=== PATIENT | male | born 1935 | race Caucasian/White ===

== ENCOUNTER → 2016-12-24 | Outpatient (CLI) | payer BC ==
[~2016-12-24] MED LIST: ACET-24 PO; ASPEC325 PO; CIPR-255 PO; CYAN10004 PO; DUTA0.5C PO; FLUT0.15 NAE; HYDR-3419 PO; HYDR25TA4 PO; LEVO1TAB35 PO; MULT-190 PO; TERA5CAP PO; ULT50X PO
--- NOTE | 2016-12-24 14:53 | DIAGNOSTIC IMAGING REPORT ---
CHEST 2 VIEWS ROUTINE CLINICAL HISTORY: ACUTE UPPER RESPIRATORY INFECTION COMPARISON STUDY: 06/19/2016 FINDINGS: The heart is enlarged. There is no focal pulmonary consolidation. There are no pleural effusions. There is no overt failure. There is minor chronic interstitial thickening.[ IMPRESSION: Mild cardiomegaly. No evidence of acute parenchymal consolidation. Electronically signed by: Shahriar Dumont M.D. 12/24/2016 2:52 PM Dictated Date/Time: 12/24/2016 2:51 PM
== END | disposition home or self-care (01) ==
LOC: C.RAD1850 14:39
PROVIDERS: ATTEND Internal Medicine Cardiovascular Disease
DX: J06.9 Acute upper respiratory infection, unspecified (principal)

== ENCOUNTER → 2016-12-30 | Outpatient (CLI) | payer BC | END | disposition home or self-care (01) | LOC: C.LAB 14:58 | PROVIDERS: ATTEND Nurse Practitioner Adult Health | DX: R31.29 Other microscopic hematuria (principal); R82.71 Bacteriuria ==

== ENCOUNTER → 2017-01-05 | Outpatient (CLI) | payer BC ==
[2017-01-05 10:34] LABS: BLOOD UREA NITROGEN 19 mg/dl (7-18); BUN/CREATININE RATIO 19.1 (10-20)
== END | disposition home or self-care (01) ==
LOC: C.LAB1850 08:36
PROVIDERS: ATTEND Urology
DX: R31.9 Hematuria, unspecified (principal)

== ENCOUNTER 2017-01-09 15:53 | Inpatient (IN) | payer BC, OTHER ==
[~2017-01-09] VITALS: Ht 177.8 cm; Wt 87.0 kg
[~2017-01-09 15:53] MED LIST changes: -ACET-24 PO; -ASPEC325 PO; -FLUT0.15 NAE; -HYDR25TA4 PO; -LEVO1TAB35 PO; -ULT50X PO
[2017-01-09] MEDS ORDERED: ALBUT/IPRATROP 3MG/0.5MG NEB 3 ML VIAL INH STA (16:15)
[2017-01-09] MEDS ORDERED: ONDANSETRON INJ 2 MG/ML 2 ML VIAL IV STA (16:15)
--- NOTE | 2017-01-09 16:19 | EMERGENCY ROOM VISIT NOTE ---
History Report prepared by Sonya: Amador Matias Under the Supervision of: Dr. Angel Yusuf D.O. First contact with patient: 16:04 Chief Complaint: FEVER Stated Complaint: REACTION TO ANTIBIOTIC History of Present Illness The patient is a 81 year old male who presents to the Emergency Room with complaints of persistent fevers that started 3 days ago. Last recorded temperature, in the outpatient office, was 38.8. Associated symptoms include shortness of breath, a nonproductive cough, and hematuria. The patient believes he is experiencing a negative reaction to Bactrim, which he was prescribed 3 days ago. He denies vomiting, chest pain, back pain, or swelling of the legs. Source of History: patient Onset: 3 days ago Position: other (Global ) Timing: other (Persistent ) Modifying Factors (Relieving): other (None) Associated Symptoms: + SOB, + cough, + urinary symptoms (Hematuria ), No chest pain, No vomiting Review of Systems See HPI for pertinent positives & negatives. A total of 10 systems reviewed and were otherwise negative. Past Medical & Surgical Medical Problems: (1) Sepsis (2) UTI (urinary tract infection) Family History Unknown family medical history Social History Smoking Status: Former Smoker Drug Use: none Marital Status: Housing Status: lives with significant other Current/Historical Medications Scheduled Cyanocobalamin (Vitamin B-12 1000 Mcg), 1,000 MCG PO DAILY Hydrochlorothiazide (Hctz), 25 MG PO QAM Ocuvite Preservision (Ocuvite Preservision), 1 TAB PO DAILY Terazosin (Hytrin), 10 MG PO QAM Allergies Coded Allergies: Merbromin (Verified Allergy, Unknown, ALLERGIC TO MERCUROCHROME, RASH, ) Physical Exam Vital Signs Date Time Temp Pulse Resp B/P Pulse Ox O2 Delivery O2 Flow Rate FiO2 01/09/17 18:57 89 20 119/80 93 4.0 01/09/17 18:30 91 20 120/67 95 Nasal Cannula 4.0 01/09/17 17:16 62 20 113/57 94 Nasal Cannula 4.0 01/09/17 16:44 Room Air 01/09/17 16:18 100 01/09/17 15:57 38.0 112 22 130/69 89 Room Air Physical Exam GENERAL: Patient is awake, alert, non anxious appearing, comfortable. EYES: The conjunctivae are clear. The pupils are round and reactive. EARS, NOSE, MOUTH AND THROAT: The nose is without any evidence of any deformity. Mucous membranes are moist tongue is midline NECK: The neck is nontender and supple. RESPIRATORY: Lung sounds diminished throughout. Scattered expiratory wheezing in all lung garcia, mild tachypnea noted. CARDIOVASCULAR: Irregular rhythm noted to auscultation. GASTROINTESTINAL: The abdomen is soft. Bowel sounds are present in all quadrants. Abdomen is nontender MUSCULOSKELETAL/EXTREMITIES: There is no evidence of gross deformity full range of motion is noted in the hips and shoulders SKIN: Pedal edema noted bilaterally. There is no obvious evidence of any rash. There are no petechiae, pallor or cyanosis noted. NEUROLOGIC: Patient is awake alert and oriented x3. Medical Decision & Procedures ER Provider Diagnostic Interpretation: X-ray results as stated below per interpretation by me and the radiologist. CHEST ONE VIEW PORTABLE CLINICAL HISTORY: Sepsis. COMPARISON STUDY: Chest radiograph December 24, 2016. FINDINGS: Lung volumes are normal. There is no pneumothorax or pleural effusion. There is no lobar consolidation. There is mild left basilar opacity. Cardiomegaly is unchanged. There is no evidence of pulmonary edema. IMPRESSION: 1. Minimal left basilar opacity. Atelectasis is favored. An infectious process could appear similar although is considered less likely. 2. Stable cardiomegaly without evidence of pulmonary edema. Electronically signed by: Alan Chung M.D. 01/09/2017 4:33 PM Dictated Date/Time: 01/09/2017 4:32 PM Laboratory Results 01/09/17 16:30 Red Blood Count 4.27, Mean Corpuscular Volume 92.3, Mean Corpuscular Hemoglobin 32.1, Mean Corpuscular Hemoglobin Concent 34.8, Mean Platelet Volume 10.7, Neutrophils (%) (Auto) 90.8, Lymphocytes (%) (Auto) 3.2, Monocytes (%) (Auto) 4.5, Eosinophils (%) (Auto) 1.1, Basophils (%) (Auto) 0.2, Neutrophils # (Auto) 4.88, Lymphocytes # (Auto) 0.17, Monocytes # (Auto) 0.24, Eosinophils # (Auto) 0.06, Basophils # (Auto) 0.01 01/09/17 16:30 Test 01/09/17 00:00 01/09/17 16:30 01/09/17 16:35 01/09/17 17:30 Urine Color DK YELLOW Urine Appearance CLOUDY (CLEAR) Urine pH 5.5 (4.5-7.5) Urine Specific [place] 1.023 (1.000-1.030) Urine Protein 1+ (NEG) Urine Glucose (UA) NEG (NEG) Urine Ketones NEG (NEG) Urine Occult Blood 2+ (NEG) Urine Nitrite NEG (NEG) Urine Bilirubin NEG (NEG) Urine Urobilinogen POS (NEG) Urine Leukocyte Esterase MODERATE (NEG) Urine WBC (Auto) 5-10 /hpf (0-5) Urine RBC (Auto) 5-10 /hpf (0-4) Urine Hyaline Casts (Auto) 1-5 /lpf (0-5) Urine Epithelial Cells (Auto) >30 /lpf (0-5) Urine Bacteria (Auto) NEG (NEG) Urine Pathogenic Casts /lpf (0) White Blood Count 5.37 K/uL (4.8-10.8) Red Blood Count 4.27 M/uL (4.7-6.1) Hemoglobin 13.7 g/dL (14.0-18.0) Hematocrit 39.4 % (42-52) Mean Corpuscular Volume 92.3 fL (80-100) Mean Corpuscular Hemoglobin 32.1 pg (25-34) Mean Corpuscular Hemoglobin Concent 34.8 g/dl (32-36) Platelet Count 105 K/uL (130-400) Mean Platelet Volume 10.7 fL (7.4-10.4) Neutrophils (%) (Auto) 90.8 % Lymphocytes (%) (Auto) 3.2 % Monocytes (%) (Auto) 4.5 % Eosinophils (%) (Auto) 1.1 % Basophils (%) (Auto) 0.2 % Neutrophils # (Auto) 4.88 K/uL (1.4-6.5) Lymphocytes # (Auto) 0.17 K/uL (1.2-3.4) Monocytes # (Auto) 0.24 K/uL (0.11-0.59) Eosinophils # (Auto) 0.06 K/uL (0-0.5) Basophils # (Auto) 0.01 K/uL (0-0.2) RDW Standard Deviation 46.1 fL (36.4-46.3) RDW Coefficient of Variation 13.6 % (11.5-14.5) Immature Granulocyte % (Auto) 0.2 % Immature Granulocyte # (Auto) 0.01 K/uL (0.00-0.02) Erythrocyte Sedimentation Rate 44 mm/hr (0-14) Prothrombin Time 12.7 SECONDS (9.0-12.0) Prothromb Time International Ratio 1.2 (0.9-1.1) Activated Partial Thromboplast Time 46.2 SECONDS (21.0-31.0) Partial Thromboplastin Ratio 1.8 Anion Gap 7.0 mmol/L (3-11) Est Creatinine Clear Calc Drug Dose 48.2 ml/min Estimated GFR () 64.4 Estimated GFR (Non- 55.6 BUN/Creatinine Ratio 23.7 (10-20) Calcium Level 8.8 mg/dl (8.5-10.1) Phosphorus Level 1.6 mg/dl (2.5-4.9) Magnesium Level 2.4 mg/dl (1.8-2.4) Total Bilirubin 1.7 mg/dl (0.2-1) Aspartate Amino Transf (AST/SGOT) 54 U/L (15-37) Alanine Aminotransferase (ALT/SGPT) 48 U/L (12-78) Alkaline Phosphatase 164 U/L (45-117) Total Creatine Kinase 118 U/L (39-308) Creatine Kinase MB 1.7 ng/ml (0.5-3.6) Creatine Kinase MB Ratio 1.4 (0-3.0) C-Reactive Protein 18.30 mg/dl (0-0.29) Pro-B-Type Natriuretic Peptide 4590 pg/ml (0-1800) Total Protein 7.3 gm/dl (6.4-8.2) Albumin 3.4 gm/dl (3.4-5.0) Globulin 3.9 gm/dl (2.5-4.0) Albumin/Globulin Ratio 0.9 (0.9-2) Lipase 121 U/L (73-393) Venous Blood pH 7.46 (7.36-7.41) Venous Blood Partial Pressure CO2 45 mmHg (38.0-50.0) Venous Blood Partial Pressure O2 40 mmHg Venous Blood HCO3 31 mmol/L Venous Blood Oxygen Saturation 75.4 % Venous Blood Base Excess 6.6 mmol/L Bedside Lactic Acid Venous 0.98 mmol/L (0.90-1.70) Laboratory results per my review. Medications Administered Medications (Trade) Dose Ordered Sig/Shaila Route Start Time Stop Time Status Last Admin Dose Admin Ondansetron HCl (Zofran Inj) 4 mg NOW STAT IV 01/09/17 16:15 01/09/17 16:16 DC 01/09/17 17:12 4 MG Albuterol/ Ipratropium (Duoneb) 3 ml NOW STAT INH 01/09/17 16:15 01/09/17 16:16 DC 01/09/17 17:12 3 ML Magnesium Sulfate (Magnesium Sulfate) 1 gm NOW STAT IV 01/09/17 17:57 01/09/17 17:58 DC 01/09/17 17:57 1 GM Levofloxacin (Levaquin / D5W) 750 mg NOW STAT IV 01/09/17 17:57 01/09/17 17:58 DC 01/09/17 18:57 750 MG ECG Indication: SOB/dyspnea Rate (beats per minute): 96 Rhythm: atrial fibrillation Findings: RBBB (RBBB pattern noted), no ectopy Comparison ECG Date: Change: RBBB new. ED Course 1608: The patient was evaluated in room C11A. A complete history and physical examination were performed. 1615: Ordered DuoNeb 3 ml INH, Zofran Injection 4 mg IV. 1640: Upon reevaluation, the patient is 100% on bi-pap. 1757: Ordered Levofloxacin 750 mg IV, Magnesium Sulfate 1 gm IV. 1924: I discussed the patient's case with Dr. Feliz ([facility]). The patient will be evaluated for further management. Medical Decision Differential diagnosis: Etiologies such as viral syndrome, otitis, pharyngitis, pneumonia, influenza, meningitis, urinary tract infection, sepsis, bacteremia, as well as others were entertained. Nursing notes reviewed. The patient is an 81-year-old male who presented to emergency department for an evaluation of cough and fever. The patient was also found have hypoxia. He has a history of COPD. He was treated with IV fluids and IV antibiotics in emergency department. On subsequent reevaluation he was somewhat improved. He is currently also being treated for urinary tract infection. I discussed the patient's laboratory and radiographic studies with him. Given his comorbidities as well as his vital signs I also discussed his case with the on-call [facility] hospitalist group. They've agreed to evaluate the patient in the emergency department for further management and disposition. Consults Time Called: [phone] Consulting Physician: Dr. Feliz ([facility]) Returned Call: [phone] I discussed the patient's case with Dr. Feliz ([facility]). The patient will be evaluated for further management. Impression Primary Impression: Pneumonia Additional Impressions: Hypoxia Fever UTI (urinary tract infection) Elevated troponin New onset right bundle branch block (RBBB) Scribe Attestation The scribe's documentation has been prepared under my direction and personally reviewed by me in its entirety. I confirm that the note above accurately reflects all work, treatment, procedures, and medical decision making performed by me. Departure Information Dispostion Being Evaluated By Hospitalist Referrals RV. De La Cruz MD (PCP) Patient Instructions My [facility] Problem Qualifiers Primary Impression: Pneumonia Pneumonia type: due to unspecified organism Laterality: unspecified laterality Lung location: unspecified part of lung Qualified Codes: J18.9 - Pneumonia, unspecified organism Additional Impressions: Fever Fever type: unspecified Qualified Codes: R50.9 - Fever, unspecified UTI (urinary tract infection) Urinary tract infection type: site unspecified Hematuria presence: with hematuria Qualified Codes: N39.0 - Urinary tract infection, site not specified ; R31.9 - Hematuria, unspecified
--- NOTE | 2017-01-09 16:35 | DIAGNOSTIC IMAGING REPORT ---
CHEST ONE VIEW PORTABLE CLINICAL HISTORY: Sepsis. COMPARISON STUDY: Chest radiograph December 24, 2016. FINDINGS: Lung volumes are normal. There is no pneumothorax or pleural effusion. There is no lobar consolidation. There is mild left basilar opacity. Cardiomegaly is unchanged. There is no evidence of pulmonary edema. IMPRESSION: 1. Minimal left basilar opacity. Atelectasis is favored. An infectious process could appear similar although is considered less likely. 2. Stable cardiomegaly without evidence of pulmonary edema. Electronically signed by: Alan Chung M.D. 01/09/2017 4:33 PM Dictated Date/Time: 01/09/2017 4:32 PM
[2017-01-09] MEDS ORDERED: HYDR25TA4 PO (16:39)
[2017-01-09 16:53] LABS: BASO % 0.2 %; BASO ABS # 0.01 K/uL (0-0.2); COMPLETE YES; EOS % 1.1 %; HEMATOCRIT 39.4 % (42-52); IG% 0.2 %; LYMPH % 3.2 %; LYMPH ABS # 0.17 K/uL (1.2-3.4); MEAN CELL VOLUME 92.3 fL (80-100); MEAN CORPUSCULAR HEMOGLOBIN 32.1 pg (25-34); MEAN CORPUSCULAR HGB CONC 34.8 g/dl (32-36); MEAN PLATELET VOLUME 10.7 fL (7.4-10.4); MONO % 4.5 %; NEUT % 90.8 %; PLATELET COUNT 105 K/uL (130-400); RED BLOOD COUNT 4.27 M/uL (4.7-6.1); WHITE BLOOD COUNT 5.37 K/uL (4.8-10.8)
[2017-01-09 16:56] LABS: VEN BLD GAS O2 SATURATION 75.4 %; VEN BLOOD GAS BASE EXCESS 6.6 mmol/L
[2017-01-09 17:07] LABS: INR 1.2 (0.9-1.1); PARTIAL THROMBOPLASTIN RATIO 1.8; PROTHROMBIN TIME (PATIENT) 12.7 SECONDS (9.0-12.0)
[2017-01-09 17:17] LABS: BUN/CREATININE RATIO 23.7 (10-20); CALCIUM 8.8 mg/dl (8.5-10.1); CREATININE 1.2 mg/dl (0.60-1.40); MAGNESIUM 2.4 mg/dl (1.8-2.4); POTASSIUM 3.2 mmol/L (3.5-5.1)
[2017-01-09 17:29] LABS: ALB/GLOB RATIO 0.9 (0.9-2); C-REACTIVE PROTEIN 18.3 mg/dl (0-0.29); CKMB/CK RATIO 1.4 (0-3.0); PHOSPHORUS 1.6 mg/dl (2.5-4.9)
[2017-01-09 17:44] LABS: URINE APPEARANCE CLOUDY (CLEAR); URINE COLOR DK YELLOW; URINE EPITHELIAL CELL AUTO >30 /lpf (0-5); URINE NITRITE NEG (NEG); URINE PH 5.5 (4.5-7.5); URINE SPECIFIC GRAVITY 1.023 (1.000-1.030); UROBILINOGEN POS (NEG)
[2017-01-09] MEDS ORDERED: LEVAQUIN 750MG / 150ML D5W IV STA (17:57)
[2017-01-09] MEDS ORDERED: MAGNESIUM SULFATE 1GM / D5W 1 GM BAG IV STA (17:57)
[2017-01-09 18:03] LABS: MANUAL MICROSCOPIC REQUIRED? NO; REVIEW REQ? YES; URINE BILIRUBIN NEG (NEG)
[2017-01-09 18:04] LABS: ZZUR CULT IF INDIC CLEAN CATCH NO
[2017-01-09] MEDS ORDERED: ALUMINUM/MAGNESIUM/SIMETH (MAALOX MAX) 30 ML UDC PO PRN (19:30)
[2017-01-09] MEDS ORDERED: ONDANSETRON INJ 2 MG/ML 2 ML VIAL IV PRN (19:30)
[2017-01-09] MEDS ORDERED: MAGNESIUM HYDROXIDE SUSP 30 ML UDC PO PRN (19:30)
[2017-01-09] MEDS ORDERED: POLYETHYLENE (MIRALAX) 17 GM PACK PO PRN (19:30)
[2017-01-09] MEDS ORDERED: ACETAMINOPHEN 325 MG TAB PO PRN (19:30)
[2017-01-09] MEDS ORDERED: POTASSIUM CHLORIDE PWD 20 MEQ PACK PO ONE (20:15)
--- NOTE | 2017-01-09 20:24 | History and Physical ---
History & Physical Date & Time of Service: Jan 09, 2017 at 19:55 Chief Complaint: Reaction To Antibiotic Primary Care Physician: RV. De La Cruz MD History of Present Illness Source: patient 81 y/o M Hx AF, HTN, PUD. Pt was diagnosed with a UTI and placed on Bactrim 3 days prior. He developed rigors a few hours after his first dose of Bactrim and has been having fevers and intermittent rigors since. He opined that this was due to a reaction to the Bactrim and presented to the hospital for further evaluation. A fever was confirmed on arrival, however there was no other evidence of an acute reaction to Bactrim. Initial labs revealed an elevated troponin and an elevated CRP and BNP and a low K. He had not c/o CP, SOB, N/V and does not c/o dysuria. His clinical presentation is not consistent with CHF. Past Medical/Surgical History 1) COPD - mild 2) Chronic AF - history of ablation - does not take Coumadin as he suffered a retinal hemorrhage. 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 6) BPH Surgical R TKR, B/L meniscal tears Family History Parents at early age - does not know cause Social History Smoking Status: Former Smoker Alcohol Use: none Marital Status: Housing status: lives with family Immunizations History of Influenza Vaccine: Yes History of Tetanus Vaccine?: Unknown History of Pneumococcal: Yes Pneumococcal Date: Dec 24, 2010 History of Hepatitis B Vaccine: No Multi-Drug Resistant Organisms History of MDRO: No Allergies Coded Allergies: Merbromin (Verified Allergy, Unknown, ALLERGIC TO MERCUROCHROME, RASH, ) Home Medications Scheduled Cyanocobalamin (Vitamin B-12 1000 Mcg), 1,000 MCG PO DAILY Hydrochlorothiazide (Hctz), 25 MG PO QAM Ocuvite Preservision (Ocuvite Preservision), 1 TAB PO DAILY Terazosin (Hytrin), 10 MG PO QAM Review of Systems Constitutional: + chills, + fever, + sweats, + weakness, No weight loss Eyes: + problem reported (Chronic vision loss L eye), No eye pain, No worsening of vision ENT: No hearing loss, No nasal symptoms, No unusual epistaxis Respiratory: No cough, No sputum, No wheezing Cardiovascular: No PND, No chest pain, No orthopnea Abdomen: No nausea, No pain, No vomiting Musculoskeletal: No joint pain, No muscle pain Genitourinary - Male: No dysuria, No hematuria, No urinary frequency, No urinary urgency Neurologic: + weakness, No memory loss, No paralysis Psychiatric: No depression symptoms Endocrine: + fatigue Hematologic / Lymphatic: No abnormal bleeding/bruising Integumentary: No rash Allergic / Immunologic: No environmental allergies Physical Exam Vital Signs Date Time Temp Pulse Resp B/P Pulse Ox O2 Delivery O2 Flow Rate FiO2 01/09/17 18:57 89 20 119/80 93 4.0 01/09/17 18:30 91 20 120/67 95 Nasal Cannula 4.0 01/09/17 17:16 62 20 113/57 94 Nasal Cannula 4.0 01/09/17 16:44 Room Air 01/09/17 16:18 100 01/09/17 15:57 38.0 112 22 130/69 89 Room Air General Appearance: WD/WN, no apparent distress Head: normocephalic, atraumatic Eyes: normal inspection, PERRL, EOMI ENT: normal ENT inspection Neck: supple, no JVD Respiratory/Chest: chest non-tender, lungs clear, normal breath sounds, no respiratory distress, no accessory muscle use Cardiovascular: no edema, no JVD, no murmur, normal peripheral pulses, + systolic murmur, + irregularly irregular Abdomen/GI: normal bowel sounds, non tender, soft Back: normal inspection Extremities/Musculoskelatal: normal inspection, no calf tenderness, normal capillary refill, + pedal edema, + pertinent finding (Chronic stasis changes) Neurologic/Psych: 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 II-XII nml as tested, no motor/sensory deficits, alert, normal mood/affect, oriented x 3 Skin: no rash, + pertinent finding (Chronic stasis changes) Diagnostics Laboratory Results Results Past 24 Hours Test 01/09/17 00:00 01/09/17 16:30 01/09/17 16:35 01/09/17 17:30 Range/Units Urine Color DK YELLOW Urine Appearance CLOUDY CLEAR Urine pH 5.5 4.5-7.5 Urine Specific [place] 1.023 1.000-1.030 Urine Protein 1+ NEG Urine Glucose (UA) NEG NEG Urine Ketones NEG NEG Urine Occult Blood 2+ NEG Urine Nitrite NEG NEG Urine Bilirubin NEG NEG Urine Urobilinogen POS NEG Urine Leukocyte Esterase MODERATE NEG Urine WBC (Auto) 5-10 0-5 /hpf Urine RBC (Auto) 5-10 0-4 /hpf Urine Hyaline Casts (Auto) 1-5 0-5 /lpf Urine Epithelial Cells (Auto) >30 0-5 /lpf Urine Bacteria (Auto) NEG NEG Urine Pathogenic Casts 0 /lpf White Blood Count 5.37 4.8-10.8 K/uL Red Blood Count 4.27 4.7-6.1 M/uL Hemoglobin 13.7 14.0-18.0 g/dL Hematocrit 39.4 42-52 % Mean Corpuscular Volume 92.3 80-100 fL Mean Corpuscular Hemoglobin 32.1 25-34 pg Mean Corpuscular Hemoglobin Concent 34.8 32-36 g/dl Platelet Count 105 130-400 K/uL Mean Platelet Volume 10.7 7.4-10.4 fL Neutrophils (%) (Auto) 90.8 % Lymphocytes (%) (Auto) 3.2 % Monocytes (%) (Auto) 4.5 % Eosinophils (%) (Auto) 1.1 % Basophils (%) (Auto) 0.2 % Neutrophils # (Auto) 4.88 1.4-6.5 K/uL Lymphocytes # (Auto) 0.17 1.2-3.4 K/uL Monocytes # (Auto) 0.24 0.11-0.59 K/uL Eosinophils # (Auto) 0.06 0-0.5 K/uL Basophils # (Auto) 0.01 0-0.2 K/uL RDW Standard Deviation 46.1 36.4-46.3 fL RDW Coefficient of Variation 13.6 11.5-14.5 % Immature Granulocyte % (Auto) 0.2 % Immature Granulocyte # (Auto) 0.01 0.00-0.02 K/uL Erythrocyte Sedimentation Rate 44 0-14 mm/hr Prothrombin Time 12.7 9.0-12.0 SECONDS Prothromb Time International Ratio 1.2 0.9-1.1 Activated Partial Thromboplast Time 46.2 21.0-31.0 SECONDS Partial Thromboplastin Ratio 1.8 Sodium Level 135 136-145 mmol/L Potassium Level 3.2 3.5-5.1 mmol/L Chloride Level 98 98-107 mmol/L Carbon Dioxide Level 30 21-32 mmol/L Anion Gap 7.0 3-11 mmol/L Blood Urea Nitrogen 28 7-18 mg/dl Creatinine 1.20 0.60-1.40 mg/dl Est Creatinine Clear Calc Drug Dose 48.2 ml/min Estimated GFR () 64.4 Estimated GFR (Non- 55.6 BUN/Creatinine Ratio 23.7 10-20 Random Glucose 102 70-99 mg/dl Calcium Level 8.8 8.5-10.1 mg/dl Phosphorus Level 1.6 2.5-4.9 mg/dl Magnesium Level 2.4 1.8-2.4 mg/dl Total Bilirubin 1.7 0.2-1 mg/dl Aspartate Amino Transf (AST/SGOT) 54 15-37 U/L Alanine Aminotransferase (ALT/SGPT) 48 12-78 U/L Alkaline Phosphatase 164 45-117 U/L Total Creatine Kinase 118 39-308 U/L Creatine Kinase MB 1.7 0.5-3.6 ng/ml Creatine Kinase MB Ratio 1.4 0-3.0 Troponin I 0.068 0-0.045 ng/ml C-Reactive Protein 18.30 0-0.29 mg/dl Pro-B-Type Natriuretic Peptide 4590 0-1800 pg/ml Total Protein 7.3 6.4-8.2 gm/dl Albumin 3.4 3.4-5.0 gm/dl Globulin 3.9 2.5-4.0 gm/dl Albumin/Globulin Ratio 0.9 0.9-2 Lipase 121 73-393 U/L Venous Blood pH 7.46 7.36-7.41 Venous Blood Partial Pressure CO2 45 38.0-50.0 mmHg Venous Blood Partial Pressure O2 40 mmHg Venous Blood HCO3 31 mmol/L Venous Blood Oxygen Saturation 75.4 % Venous Blood Base Excess 6.6 mmol/L Bedside Lactic Acid Venous 0.98 0.90-1.70 mmol/L Microbiology Results 01/09/17 Blood Culture, Received Pending 01/09/17 Blood Culture, Received Pending Diagnostic Radiology CXR 1. Minimal left basilar opacity. Atelectasis is favored. An infectious process could appear similar although is considered less likely. 2. Stable cardiomegaly without evidence of pulmonary edema. EKG AF, RBBB - inf Q wvs - no acute ischemic changes Impression Assessment and Plan 81 y/o M Hx AF, HTN, PUD. Pt was diagnosed with a UTI and placed on Bactrim 3 days prior. He developed rigors a few hours after his first dose of Bactrim and has been having fevers and intermittent rigors since. He opined that this was due to a reaction to the Bactrim and presented to the hospital for further evaluation. A fever was confirmed on arrival, however there was no other evidence of an acute reaction to Bactrim. Initial labs revealed an elevated troponin and an elevated CRP and BNP and a low K. He had not c/o CP, SOB, N/V and does not c/o dysuria. His clinical presentation is not consistent with CHF. 1) Fevers, rigors - likely a UTI - UA is + although not strongly - may be partially treated due to Bactrim. Differential would include PNM as CXR is also equivocal - he does not have SOB or a cough to support a PNM. Pt placed on Levaquin pending cultures which would cover adequately for both. 2) Elevated troponin, CRP, BMP - clinical presentation does not support cardiac etiology. We will monitor on telemetry, trend troponin and provide ASA and low dose Heparin. An echo is ordered to evaluate EF and wall motion. 3) HTN - cont Hytrin - HCTZ held due to clinical dehydration. 4) AF - placed on ASA - does not take anticoagulation due to retinal hemorrhage as mentioned. 5) HypoK - replaced Full code - Heparin prophylaxis Total time for this admit including review of labs, med, EKG, records - discussion with ER MD and pt - 38 min Level of Care Telemetry Resuscitation Status FULL RESUSCITATION VTE Prophylaxis VTE Risk Assessment Done? Y/N: Yes Risk Level: Moderate Given or contraindicated: Unfractionated heparin SQ
[2017-01-09] MEDS ORDERED: MAGNESIUM SULFATE 1GM / D5W 1 GM BAG ONE (20:37)
[2017-01-09 21:30] VITALS: BP 128/64; PULSE 87; TEMP 36.9; O2SAT 92
[2017-01-09] MEDS: HEPARIN SOD 5000 UNIT/0.5 ML CARP SQ SCH ×2 (22:00→22:32)
[2017-01-09] MEDS ORDERED: LEVOFLOXACIN CONSULT ACTIVE PRN (22:00)
[2017-01-09] MEDS ORDERED: NSS + 20MEQ KCL 1000ML 1,000 ML IV SCH (22:00)
[2017-01-09 23:03] VITALS: BP 128/64; PULSE 87; TEMP 36.9; O2SAT 92; Ht 177.8 cm; Wt 87.0 kg
[2017-01-10 00:10] VITALS: BP 153/81; PULSE 96; TEMP 36.9; O2SAT 96
[2017-01-10 05:25] LABS: HEMATOCRIT 36.4 % (42-52); MEAN CELL VOLUME 91.9 fL (80-100); MEAN CORPUSCULAR HEMOGLOBIN 31.6 pg (25-34); MEAN CORPUSCULAR HGB CONC 34.3 g/dl (32-36); RED BLOOD COUNT 3.96 M/uL (4.7-6.1); WHITE BLOOD COUNT 3.44 K/uL (4.8-10.8)
[2017-01-10 05:41] LABS: BUN/CREATININE RATIO 24.6 (10-20); CALCIUM 8.5 mg/dl (8.5-10.1); CREATININE 1.2 mg/dl (0.60-1.40); MAGNESIUM 2.4 mg/dl (1.8-2.4); POTASSIUM 3.2 mmol/L (3.5-5.1)
[2017-01-10] MEDS: HEPARIN SOD 5000 UNIT/0.5 ML CARP SQ SCH ×3 (05:49→21:35)
[2017-01-10 05:50] LABS: MEAN PLATELET VOLUME 10.1 fL (7.4-10.4); PLATELET COUNT 82 K/uL (130-400); PLT ESTIMATE DECREASED
[2017-01-10 07:53] VITALS: BP 105/65; PULSE 88; TEMP 37.1; O2SAT 90
[2017-01-10] MEDS: CYANOCOBALAMIN 500 MCG TAB (VIT B-12) PO SCH (08:03)
[2017-01-10] MEDS: CEROVITE ADV FORMULA TAB PO SCH (08:03)
--- NOTE | 2017-01-10 13:00 | Hospitalist Progress Note ---
Hospitalist Progress Note Date of Service Jan 10, 2017. Subjective Pt evaluation today including: conversation w/ patient, conversation w/ family Patient had no acute issues overnight Denies any fevers Patient denies any chest pain or SOB Constitutional: No fever Eyes: No worsening of vision ENT: No hearing loss Respiratory: No cough, No shortness of breath, No sputum Cardiovascular: No chest pain Abdomen: No nausea, No pain, No vomiting Musculoskeletal: No joint pain Male : No dysuria Neurologic: No memory loss Psychiatric: No depression symptoms Endo: No fatigue Skin: No itch, No rash Medications Current Inpatient Medications Medications (Trade) Dose Ordered Sig/Shaila Route Start Time Stop Time Status Last Admin Dose Admin Cyanocobalamin (Vitamin B-12 Tab) 1,000 mcg DAILY PO 01/10/17 08:00 02/09/17 08:59 01/10/17 08:03 1,000 MCG Multivitamins/ Minerals (Multivitamin W/ Minerals Tab) 1 tab DAILY PO 01/10/17 08:00 02/09/17 08:59 01/10/17 08:03 1 TAB Terazosin HCl 10 mg 10 mg QAM PO 01/10/17 08:00 02/09/17 08:59 01/10/17 08:04 10 MG Levofloxacin/Prmx (Levaquin / D5W/ Premixed D5W) 150 ml @ 100 mls/hr Q2D@1800 IV 01/11/17 18:00 01/19/17 17:59 Heparin Sodium (Porcine) (Heparin Sq 5000 Unit/0.5ml) 5,000 unit Q8 SQ 01/09/17 22:00 02/08/17 21:59 Acetaminophen (Tylenol Tab) 650 mg Q4H PRN PO 01/09/17 19:30 02/08/17 19:29 Al Hydrox/Mg Hydrox/Simethicone (Maalox Max Susp) 15 ml Q4H PRN PO 01/09/17 19:30 02/08/17 19:29 Magnesium Hydroxide (Milk Of Magnesia Susp) 30 ml Q6H PRN PO 01/09/17 19:30 02/08/17 19:29 Polyethylene (Miralax Powder Packet) 17 gm DAILY PRN PO 01/09/17 19:30 02/08/17 19:29 Ondansetron HCl (Zofran Inj) 4 mg Q6H PRN IV 4/14/17 19:30 02/08/17 19:29 Levofloxacin (Consult) 1 ea UD PRN N/A 01/09/17 22:00 02/08/17 21:59 Objective Vital Signs Date Time Temp Pulse Resp B/P Pulse Ox O2 Delivery O2 Flow Rate FiO2 01/10/17 08:00 Room Air 01/10/17 07:53 37.1 88 20 105/65 90 Room Air 01/10/17 00:10 36.9 96 20 153/81 96 Room Air 01/10/17 00:01 Room Air 01/09/17 23:03 36.9 87 18 128/64 92 Room Air 01/09/17 21:30 36.9 87 18 128/64 92 Room Air 01/09/17 20:58 86 20 121/69 93 Room Air 01/09/17 20:10 92 20 114/78 95 Room Air 01/09/17 18:57 89 20 119/80 93 4.0 01/09/17 18:30 91 20 120/67 95 Nasal Cannula 4.0 01/09/17 17:16 62 20 113/57 94 Nasal Cannula 4.0 01/09/17 16:44 Room Air 01/09/17 16:18 100 01/09/17 15:57 38.0 112 22 130/69 89 Room Air Physical Exam General Appearance: WD/WN, no apparent distress Eyes: normal inspection ENT: normal ENT inspection Neck: supple Respiratory/Chest: chest non-tender, lungs clear Cardiovascular: regular rate, rhythm, no edema Abdomen: normal bowel sounds, non tender, soft Extremities: normal range of motion, non-tender 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, no motor/sensory deficits, alert, oriented x 3 Laboratory Results Last 24 Hours Test 01/09/17 16:30 01/09/17 16:35 01/09/17 17:30 01/09/17 23:07 White Blood Count 5.37 K/uL Red Blood Count 4.27 M/uL Hemoglobin 13.7 g/dL Hematocrit 39.4 % Mean Corpuscular Volume 92.3 fL Mean Corpuscular Hemoglobin 32.1 pg Mean Corpuscular Hemoglobin Concent 34.8 g/dl Platelet Count 105 K/uL Mean Platelet Volume 10.7 fL Neutrophils (%) (Auto) 90.8 % Lymphocytes (%) (Auto) 3.2 % Monocytes (%) (Auto) 4.5 % Eosinophils (%) (Auto) 1.1 % Basophils (%) (Auto) 0.2 % Neutrophils # (Auto) 4.88 K/uL Lymphocytes # (Auto) 0.17 K/uL Monocytes # (Auto) 0.24 K/uL Eosinophils # (Auto) 0.06 K/uL Basophils # (Auto) 0.01 K/uL RDW Standard Deviation 46.1 fL RDW Coefficient of Variation 13.6 % Immature Granulocyte % (Auto) 0.2 % Immature Granulocyte # (Auto) 0.01 K/uL Erythrocyte Sedimentation Rate 44 mm/hr Prothrombin Time 12.7 SECONDS Prothromb Time International Ratio 1.2 Activated Partial Thromboplast Time 46.2 SECONDS Partial Thromboplastin Ratio 1.8 Sodium Level 135 mmol/L Potassium Level 3.2 mmol/L Chloride Level 98 mmol/L Carbon Dioxide Level 30 mmol/L Anion Gap 7.0 mmol/L Blood Urea Nitrogen 28 mg/dl Creatinine 1.20 mg/dl Est Creatinine Clear Calc Drug Dose 48.2 ml/min Estimated GFR () 64.4 Estimated GFR (Non- 55.6 BUN/Creatinine Ratio 23.7 Random Glucose 102 mg/dl Calcium Level 8.8 mg/dl Phosphorus Level 1.6 mg/dl Magnesium Level 2.4 mg/dl Total Bilirubin 1.7 mg/dl Aspartate Amino Transf (AST/SGOT) 54 U/L Alanine Aminotransferase (ALT/SGPT) 48 U/L Alkaline Phosphatase 164 U/L Total Creatine Kinase 118 U/L Creatine Kinase MB 1.7 ng/ml Creatine Kinase MB Ratio 1.4 Troponin I 0.068 ng/ml 0.059 ng/ml C-Reactive Protein 18.30 mg/dl Pro-B-Type Natriuretic Peptide 4590 pg/ml Total Protein 7.3 gm/dl Albumin 3.4 gm/dl Globulin 3.9 gm/dl Albumin/Globulin Ratio 0.9 Lipase 121 U/L Venous Blood pH 7.46 Venous Blood Partial Pressure CO2 45 mmHg Venous Blood Partial Pressure O2 40 mmHg Venous Blood HCO3 31 mmol/L Venous Blood Oxygen Saturation 75.4 % Venous Blood Base Excess 6.6 mmol/L Bedside Lactic Acid Venous 0.98 mmol/L Test 01/10/17 05:04 White Blood Count 3.44 K/uL Red Blood Count 3.96 M/uL Hemoglobin 12.5 g/dL Hematocrit 36.4 % Mean Corpuscular Volume 91.9 fL Mean Corpuscular Hemoglobin 31.6 pg Mean Corpuscular Hemoglobin Concent 34.3 g/dl RDW Standard Deviation 45.5 fL RDW Coefficient of Variation 13.6 % Platelet Count 82 K/uL Mean Platelet Volume 10.1 fL Platelet Estimate DECREASED Sodium Level 138 mmol/L Potassium Level 3.2 mmol/L Chloride Level 100 mmol/L Carbon Dioxide Level 31 mmol/L Anion Gap 7.0 mmol/L Blood Urea Nitrogen 30 mg/dl Creatinine 1.20 mg/dl Est Creatinine Clear Calc Drug Dose 48.2 ml/min Estimated GFR () 64.4 Estimated GFR (Non- 55.6 BUN/Creatinine Ratio 24.6 Random Glucose 122 mg/dl Calcium Level 8.5 mg/dl Magnesium Level 2.4 mg/dl Troponin I 0.053 ng/ml Assessment and Plan 81 y/o M Hx AF, HTN, PUD. Pt was diagnosed with a UTI and placed on Bactrim 3 days prior. He developed rigors a few hours after his first dose of Bactrim and has been having fevers and intermittent rigors since. He opined that this was due to a reaction to the Bactrim and presented to the hospital for further evaluation. A fever was confirmed on arrival, however there was no other evidence of an acute reaction to Bactrim. Initial labs revealed an elevated troponin and an elevated CRP and BNP and a low K. Urinary Tract Infection - failure of outpatient therapy - continue Levaquin - d/c IVF - urine culture pending Fevers - suspect 2/2 to infection HTN - cont Hytrin - HCTZ held due to clinical dehydration. AF - placed on ASA - no a/c 2/2o retinal hemorrhage as mentioned. HypoK - give KCL 40 meq now Disp- anticipate d/c in am
[2017-01-10] MEDS ORDERED: POTASSIUM CHLORIDE 20 MEQ TABCR PO ONE (13:15)
[2017-01-10 15:56] VITALS: BP 124/62; PULSE 78; TEMP 36.7; O2SAT 90
--- NOTE | 2017-01-10 16:27 | ECHOCARDIOGRAM REPORT ---
*NOTICE TO RECEIVING REPUBLICAN AGENCY This information is strictly Confidential and protected under [place] law. [place] law prohibits you from making any further disclosure of this information unless further disclosure is expressly permitted by the written consent of the person to whom it pertains or is authorized by law. A general authorization for the release of medical or other information is not sufficient for this purpose. Hospital accepts no responsibility if the information is made available to any other person, INCLUDING THE PATIENT. Interpretation Summary * Name: DELORES DOUGLAS Study Date: 01/10/2017 01:33 PM BP: 153/81 mmHg * Patient Location: [id number] HR: 96 * : 1935 (M/d/yyyy) Gender: Male Height: 70 in * Age: 81 yrs Ethnicity: CA Weight: 191 lb * Ordering Physician: Dean Feliz * Performed By: Ana Maria Georges * * Reason For Study: ELEVATED TROP * BSA: 2.0 m2 * Normal biventricular systolic function. * Mild biatrial dilatation. * Mild aortic stenosis. * Mild kimberley,l tricuspid,and pulmonic regurgitation. * Mild pulmonary hypertension. Procedure Details * A complete two-dimensional transthoracic echocardiogram was performed (2D, M-mode, Doppler and color flow Doppler). Left Ventricle * The left ventricle is normal in size. * There is mild concentric left ventricular hypertrophy. * Ejection Fraction = 55-60%. * Left ventricular systolic function is normal. * The left ventricular wall motion is normal. Right Ventricle * The right ventricle is normal in size and function. * The right ventricular systolic function is normal as assessed by tricuspid annular plane systolic excursion (TAPSE) (normal >1.5 cm). Atria * The left atrium is mildly dilated. * The right atrium is mildly dilated. * No ASD detected; PFO is not assessed. Mitral Valve * There is moderate mitral annular calcification. * There is no mitral valve stenosis. * There is mild mitral regurgitation. Tricuspid Valve * The tricuspid valve is not well visualized, but is grossly normal. * There is no tricuspid stenosis. * There is mild tricuspid regurgitation. * Right ventricular systolic pressure is elevated at 30-40mmHg. Aortic Valve * The aortic valve is trileaflet. * The aortic valve is calcified and has decreased opening on 2 D imaging. * Mild valvular aortic stenosis. * Aortic valve area was calculated at 1.5 cm\S\2 using the continuity equation. * No aortic regurgitation is present. Pulmonic Valve * The pulmonic valve is not well visualized. * The pulmonary valve is inadequately visualized, but the Doppler data is adequate for interpretation. * There is no pulmonic valvular stenosis. * Mild pulmonic valvular regurgitation. Great Vessels * The aortic root is normal size. Pericardium/Pleural * There is no pericardial effusion. Great Vessels * Normal inferior vena cava diameter and respiratory variation suggests normal central venous pressure. MMode 2D Measurements and Calculations IVSd 1.4 cm IVSs 1.9 cm LVIDd 4.6 cm LVIDs 3.2 cm LVPWd 1.4 cm LVPWs 1.7 cm IVS/LVPW 0.97 FS 30.3 % EDV(Teich) 95.1 ml ESV(Teich) 40.1 ml EF(Teich) 57.8 % EDV(cubed) 94.4 ml ESV(cubed) 31.9 ml EF(cubed) 66.2 % % IVS thick 32.1 % % LVPW thick 15.6 % LV mass(C)d 260.9 grams LV mass(C)dI 127.5 grams/m\S\2 LV mass(C)s 225.4 grams LV mass(C)sI 110.1 grams/m\S\2 CO(Teich) 4.1 l/min CI(Teich) 2.0 l/min/m\S\2 SV(Teich) 54.9 ml SI(Teich) 26.8 ml/m\S\2 CO(cubed) 4.6 l/min CI(cubed) 2.3 l/min/m\S\2 SV(cubed) 62.5 ml SI(cubed) 30.5 ml/m\S\2 Ao root diam 3.7 cm Ao root area 10.9 cm\S\2 ACS 1.3 cm LA dimension 4.2 cm asc Aorta Diam 3.7 cm LA/Ao 1.1 LVOT diam 1.8 cm LVOT area 2.6 cm\S\2 LVAd ap4 29.5 cm\S\2 LVLd ap4 7.7 cm EDV(MOD-sp4) 94.0 ml LVAs ap4 17.1 cm\S\2 LVLs ap4 6.3 cm ESV(MOD-sp4) 39.0 ml EF(MOD-sp4) 58.5 % LVAd ap2 30.3 cm\S\2 LVLd ap2 7.7 cm EDV(MOD-sp2) 99.0 ml LVAs ap2 17.9 cm\S\2 LVLs ap2 6.5 cm ESV(MOD-sp2) 43.0 ml EF(MOD-sp2) 56.6 % CO(MOD-sp4) 4.1 l/min CI(MOD-sp4) 2.0 l/min/m\S\2 SV(MOD-sp4) 55.0 ml SI(MOD-sp4) 26.9 ml/m\S\2 CO(MOD-sp2) 4.1 l/min CI(MOD-sp2) 2.0 l/min/m\S\2 SV(MOD-sp2) 56.0 ml SI(MOD-sp2) 27.4 ml/m\S\2 Doppler Measurements and Calculations MV E max arti 113.0 cm/sec MV dec time 0.23 sec Ao V2 max 173.7 cm/sec Ao max PG 12.1 mmHg Ao max PG (full) 8.3 mmHg SUNG(V,A) 1.5 cm\S\2 SUNG(V,D) 1.5 cm\S\2 LV V1 max PG 3.8 mmHg LV V1 max 97.7 cm/sec MR max arti 397.4 cm/sec MR max PG 63.2 mmHg PA V2 max 56.8 cm/sec PA max PG 1.3 mmHg PI end-d arti 136.8 cm/sec TR max arti 291.7 cm/sec
[2017-01-10 23:44] VITALS: BP 114/64; PULSE 69; TEMP 36.9; O2SAT 92
[2017-01-11] MEDS: HEPARIN SOD 5000 UNIT/0.5 ML CARP SQ SCH (06:00)
[2017-01-11 06:51] LABS: HEMATOCRIT 37.8 % (42-52); MEAN CELL VOLUME 93.3 fL (80-100); MEAN CORPUSCULAR HEMOGLOBIN 31.1 pg (25-34); MEAN CORPUSCULAR HGB CONC 33.3 g/dl (32-36); MEAN PLATELET VOLUME 10.5 fL (7.4-10.4); PLATELET COUNT 104 K/uL (130-400); RED BLOOD COUNT 4.05 M/uL (4.7-6.1); WHITE BLOOD COUNT 5.04 K/uL (4.8-10.8)
[2017-01-11 07:23] LABS: BUN/CREATININE RATIO 26.5 (10-20); CALCIUM 8.6 mg/dl (8.5-10.1); CREATININE 0.9 mg/dl (0.60-1.40)
[2017-01-11 07:44] VITALS: BP 125/71; PULSE 86; TEMP 36.7; O2SAT 90
[2017-01-11] MEDS ORDERED: POLYETHYLENE (MIRALAX) 17 GM PACK PO PRN (08:30)
[2017-01-11] MEDS: CEROVITE ADV FORMULA TAB PO SCH (08:32)
[2017-01-11] MEDS: CYANOCOBALAMIN 500 MCG TAB (VIT B-12) PO SCH (08:32)
[2017-01-11] MEDS ORDERED: LEVO1TAB35 PO (09:29)
--- NOTE | 2017-01-11 09:30 | Discharge Instructions ---
Discharge Instructions Admission Admission Date: Jan 09, 2017 at 19:30 Admission Diagnosis: Sepsis, Uti (Urinary Tract Infection). Discharge Care Plan - Problem: Medical Problems: (1) Elevated troponin (2) Fever (3) Hypoxia (4) New onset right bundle branch block (RBBB) (5) Pneumonia Care Plan - Goal(s): Decrease discomfort, Improve function Care Plan - Instructions: Activity Recommendations: no limitations Recommended Home Diet: Regular Provider Instructions: Please follow up with your PCP in 1-2 week VTE Core Measure Inpt VTE Proph given/why not?: Unfractionated heparin SQ [facility] Recommendations: Call your doctor if: * Temperature above 101 degrees * Pain not relieved by pain medicine ordered * There is increased drainage or redness from any incision * You have any unanswered questions or concerns. Your Doctors Instructions noted above were prepared by provider Maki Baker.
[2017-01-11 09:49] VITALS: O2SAT 90
[2017-01-11 09:55] VITALS: BP 125/71; PULSE 86; TEMP 36.7; O2SAT 90
--- NOTE | 2017-01-11 12:07 | Discharge Summary ---
Discharge Summary Date of Service Jan 11, 2017. Discharge Summary Admission Date: Jan 09, 2017 at 19:30 Discharge Date: Jan 11, 2017 Discharge Disposition: Home Principal Diagnosis: UTI/Fevers Immunizations: Have You Had Influenza Vaccine: Yes History of Tetanus Vaccine?: Unknown History of Pneumococcal: Yes Pneumococcal Date: Dec 24, 2010 History of Hepatitis B Vaccine: No Medication Reconciliation New Medications: Levofloxacin (Levaquin) 750 Mg Tab 750 MG PO DAILY for 5 Days, TAB Continued Medications: Cyanocobalamin (Vitamin B-12 1000 Mcg) 1,000 Mcg Tab 1000 MCG PO DAILY, TAB Hydrochlorothiazide (Hctz) 25 Mg Tab 25 MG PO QAM, TAB Ocuvite Preservision (Ocuvite Preservision) 1 Tab Tab 1 TAB PO DAILY, TAB Terazosin (Hytrin) 5 Mg Cap 10 MG PO QAM, 0 Refills Discharge Exam Review of Systems: Constitutional: No chills, No fever Eyes: No worsening of vision ENT: No hearing loss Respiratory: No cough, No shortness of breath, No sputum Cardiovascular: No chest pain Abdomen: No nausea, No pain, No vomiting Neurologic: No memory loss Psychiatric: No depression symptoms Endocrine: No fatigue Hematologic / Lymphatic: No abnormal bleeding/bruising Integumentary: No itch, No rash Physical Exam: General Appearance: WD/WN, no apparent distress Eyes: normal inspection, PERRL ENT: normal ENT inspection Neck: supple, no adenopathy Respiratory/Chest: chest non-tender, lungs clear Abdomen / GI: normal bowel sounds, non tender, soft Extremities: normal inspection 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 Pt was diagnosed with a UTI and placed on Bactrim 3 days prior. He developed rigors a few hours after his first dose of Bactrim and has been having fevers and intermittent rigors since. He opined that this was due to a reaction to the Bactrim and presented to the hospital for further evaluation. A fever was confirmed on arrival, however there was no other evidence of an acute reaction to Bactrim. Initial labs revealed an elevated troponin and an elevated CRP and BNP and a low K. Urinary Tract Infection - failure of outpatient therapy - started Levaquin and IVF - urine culture pending at time of discharge Fevers - suspect 2/2 to infection - afebrile during hospital stay HTN - cont Hytrin - HCTZ held due to clinical dehydration. AF - placed on ASA - no a/c 2/2o retinal hemorrhage as mentioned. HypoK - repleted prn Disp- discharged home in stable condition. Instructed to take 5 more days of Levaquin Total Time Spent: Greater than 30 minutes This includes examination of the patient, discharge planning, medication reconciliation, and communication with other providers. Discharge Instructions Please refer to the electronic Patient Visit Report (Discharge Instructions) for additional information. Additional Copies To RV. De La Cruz MD
[2017-01-11] MEDS ORDERED: LEVOFLOXACIN / D5W 750 MG in PREMIXED IN D5W 150 ML IV SCH (18:00)
--- NOTE | 2017-01-12 09:53 | EDITING REQUIRED CODING QUERY ---
CODING QUERY To promote full compliance with coding requirements relating to patient care, provider participation is requested in all cases of holistic specialist uncertainty. Please assist us with the question(s) below: Coding Question(s): Please clarify below, in your clinical opinion, regarding the possible pneumonia documented on the ER and H&P. The progress notes and Discharge Summary document UTI and fever 2/2 infection. ( ) Possible Pneumonia was treated during this admission ( ) No Pneumonia - it was ruled out Physician's Response(s): Thank you Alize Chung Principal Diagnosis: "_that condition established after study, to be chiefly responsible for occasioning the admission of the patient to the hospital for care." Co-Existing Principal Diagnosis: "_when two or more diagnoses equally meet the criteria for principal diagnosis as determined by the circumstances of admission, diagnostic work up, and/or therapy provided, and the Alphabetic Index, Tabular List, or another coding guideline does not provide sequencing direction, any one of the diagnoses may be sequenced first." "When the physician has documented what appears to be a current diagnosis in the body of the record, but has not included the diagnosis in the final diagnostic statement, the physician should be asked whether the diagnosis should be added." (Source Coding Clinic 2 QTR90. p3-4)
[2017-05-11] MEDS ORDERED: FLUT0.15 NAE (09:03)
[2017-05-27] MEDS ORDERED: ASPEC325 PO (09:39)
[2017-05-27] MEDS ORDERED: ULT50X PO (09:39)
[2017-05-27] MEDS ORDERED: ACET-24 PO (09:39)
== END 2017-01-11 10:26 | disposition home or self-care (01) | DRG 690 ==
LOC: ENRESERVTM → ENRESERVDT → C.EDB 15:53 → C.MS4W 19:30
PROVIDERS: ADMIT Internal Medicine; ATTEND Internal Medicine
DX: N39.0 Urinary tract infection, site not specified (principal); E87.6 Hypokalemia; R78.89 Finding of other specified substances, not normally found in blood; J44.9 Chronic obstructive pulmonary disease, unspecified; I10 Essential (primary) hypertension; N40.0 Benign prostatic hyperplasia without lower urinary tract symptoms; I48.91 Unspecified atrial fibrillation; H35.62 Retinal hemorrhage, left eye; H54.62 Unqualified visual loss, left eye, normal vision right eye; Z51.81 Encounter for therapeutic drug level monitoring; Z79.899 Other long term (current) drug therapy; Z87.440 Personal history of urinary (tract) infections; Z86.19 Personal history of other infectious and parasitic diseases; Z98.890 Other specified postprocedural states; Z87.891 Personal history of nicotine dependence

== ENCOUNTER → 2017-01-13 | Outpatient (CLI) | payer BC ==
[~2017-01-13] MED LIST changes: +ACET-24 PO; +ASPEC325 PO; -CIPR-255 PO; -DUTA0.5C PO; +FLUT0.15 NAE; -HYDR-3419 PO; +HYDR25TA4 PO; +LEVO1TAB35 PO; +OPTIRAY 320 IV PRN; +ULT50X PO
--- NOTE | 2017-01-13 10:25 | DIAGNOSTIC IMAGING REPORT ---
CT ABD/PELVIS COMBO CLINICAL HISTORY: Hematuria. Urinary retention. COMPARISON STUDY: None. TECHNIQUE: Unenhanced images were obtained through the abdomen and pelvis. The patient was injected with 50 cc of Optiray 320. After 5 minute delay, the patient was rescanned in a dynamic helical fashion during the additional administration of [address] DOSE: 1746.86 mGycm FINDINGS: Lower chest: There are bibasal atelectatic changes. The heart is mildly enlarged. Liver: The contrast-enhanced liver is normal in size, contour, and attenuation. There is no intrahepatic biliary ductal dilatation. The hepatic veins and portal veins are patent. Gallbladder: Unremarkable. Spleen: The spleen is at the upper limits of normal in size. Pancreas: Unremarkable. Adrenal glands: Unremarkable. Kidneys: No renal, ureteral, or bladder calculi are visualized. No renal masses are visualized. No collecting system or ureteral lesions are evident. Bowel: There are no transition zones indicate bowel obstruction. The appendix appears normal. There is extensive sigmoid diverticulosis. No acute peridiverticular inflammatory changes are visualized. Peritoneum: No free air is visualized. There is a small amount of fluid adjacent to the cecal tip. Vasculature: The abdominal aorta is normal in course and caliber. Adenopathy: Small aortocaval and iliac lymph nodes are the upper limits of normal in size. Pelvic viscera: The prostate is enlarged measuring 55 mm Skeletal structures: No destructive osseous lesions are seen. IMPRESSION: 1. No renal, ureteral, or bladder calculi identified 2. Prostatomegaly 3. No renal masses identified. No collecting system or ureteral lesions are visualized 4. Normal appendix. Extensive sigmoid diverticulosis. 5. Para-aortic iliac lymph nodes at the upper limits of normal in size Electronically signed by: Shahriar Dumont M.D. 01/13/2017 10:23 AM Dictated Date/Time: 01/13/2017 10:15 AM
== END ==
LOC: C.CTS 09:42
PROVIDERS: ATTEND Urology
DX: R31.9 Hematuria, unspecified (principal); R33.9 Retention of urine, unspecified

== ENCOUNTER → 2017-01-26 | Outpatient (CLI) | payer BC ==
[~2017-01-26] MED LIST changes: -LEVO1TAB35 PO; -OPTIRAY 320 IV PRN
[2017-01-26 16:37] LABS: BASO % 0.8 %; BASO ABS # 0.05 K/uL (0-0.2); COMPLETE YES; EOS % 3.3 %; HEMATOCRIT 40.8 % (42-52); IG% 0.3 %; LYMPH % 32.5 %; LYMPH ABS # 2.05 K/uL (1.2-3.4); MEAN CELL VOLUME 95.1 fL (80-100); MEAN CORPUSCULAR HEMOGLOBIN 31.2 pg (25-34); MEAN CORPUSCULAR HGB CONC 32.8 g/dl (32-36); MEAN PLATELET VOLUME 9.6 fL (7.4-10.4); MONO % 7.6 %; NEUT % 55.5 %; PLATELET COUNT 189 K/uL (130-400); RED BLOOD COUNT 4.29 M/uL (4.7-6.1)
[2017-01-26 17:00] LABS: BLOOD UREA NITROGEN 23 mg/dl (7-18); BUN/CREATININE RATIO 20.5 (10-20); CALCIUM 8.9 mg/dl (8.5-10.1); CARBON DIOXIDE 33 mmol/L (21-32); CHLORIDE 105 mmol/L (98-107); GLUCOSE 95 mg/dl (70-99); POTASSIUM 3.2 mmol/L (3.5-5.1); SODIUM 144 mmol/L (136-145)
[2017-01-26 17:03] LABS: ALB/GLOB RATIO 0.9 (0.9-2); ALKALINE PHOSPHATASE 214 U/L (45-117); ALT/SGPT 38 U/L (12-78); AST/SGOT 28 U/L (15-37)
== END | disposition home or self-care (01) ==
LOC: C.LAB 15:10
PROVIDERS: ATTEND Urology
DX: T78.40XA Allergy, unspecified, initial encounter (principal); R39.15 Urgency of urination; R31.9 Hematuria, unspecified; X58.XXXA Exposure to other specified factors, initial encounter

== ENCOUNTER → 2017-02-09 | Outpatient (CLI) | payer BC ==
--- NOTE | 2017-02-09 09:42 | DIAGNOSTIC IMAGING REPORT ---
CHEST 2 VIEWS ROUTINE CLINICAL HISTORY: R91.8 Abnormal finding on lung [id number] dyspnea COMPARISON STUDY: 01/09/2017 FINDINGS: Improved exam. Lung bases are now essentially clear. Moderate degenerative change thoracic spine. Mild stable cardiomegaly. IMPRESSION: Mild stable cardiomegaly. Lungs are now considered clear. Electronically signed by: Wellington Palomo M.D. 02/09/2017 9:40 AM Dictated Date/Time: 02/09/2017 9:39 AM
[2017-02-09 10:39] LABS: BLOOD UREA NITROGEN 17 mg/dl (7-18); BUN/CREATININE RATIO 16.7 (10-20); CALCIUM 8.7 mg/dl (8.5-10.1); CARBON DIOXIDE 30 mmol/L (21-32); CHLORIDE 106 mmol/L (98-107); GLUCOSE 114 mg/dl (70-99); MAGNESIUM 2.5 mg/dl (1.8-2.4); SODIUM 142 mmol/L (136-145)
== END | disposition home or self-care (01) ==
LOC: C.RAD1850 09:21
PROVIDERS: ATTEND Internal Medicine
DX: R91.8 Other nonspecific abnormal finding of lung field (principal); E87.6 Hypokalemia

== ENCOUNTER 2017-05-26 05:07 | Inpatient (IN) | payer BC, OTHER ==
[2017-05-11 09:04] VITALS: BMI 28.0
--- NOTE | 2017-05-11 09:39 | PAT Medication Instructions ---
Service Date May 11, 2017. Current Home Medication List Cyanocobalamin (Vitamin B-12 1000 Mcg), 1,000 MCG PO QPM Fluticasone Propionate (Nasal) (Flonase Allergy Relief), 2 SPRAY ROMEO DAILY PRN for SINUS Hydrochlorothiazide (Hctz), 25 MG PO QPM Ocuvite Preservision (Ocuvite Preservision), 1 TAB PO QPM Terazosin (Hytrin), 10 MG PO QPM Medication Instructions For Your Scheduled Surgery - Take the following medications the morning of surgery with a sip of water: Fluticasone Propionate (Nasal) (Flonase Allergy Relief), 2 SPRAY ROMEO DAILY PRN for SINUS - Take the following medications as scheduled the night before surgery: Cyanocobalamin (Vitamin B-12 1000 Mcg), 1,000 MCG PO QPM Fluticasone Propionate (Nasal) (Flonase Allergy Relief), 2 SPRAY ROMEO DAILY PRN for SINUS Hydrochlorothiazide (Hctz), 25 MG PO QPM Ocuvite Preservision (Ocuvite Preservision), 1 TAB PO QPM Terazosin (Hytrin), 10 MG PO QPM If you have any questions please call us at [phone] or [phone] or [phone]
[2017-05-11 10:36] LABS: BASO % 1.3 %; BASO ABS # 0.05 K/uL (0-0.2); COMPLETE YES; EOS % 6.9 %; HEMATOCRIT 46.2 % (42-52); IG% 0.3 %; LYMPH % 28.8 %; LYMPH ABS # 1.12 K/uL (1.2-3.4); MEAN CELL VOLUME 98.1 fL (80-100); MEAN CORPUSCULAR HEMOGLOBIN 30.1 pg (25-34); MEAN CORPUSCULAR HGB CONC 30.7 g/dl (32-36); MEAN PLATELET VOLUME 9.7 fL (7.4-10.4); MONO % 15.4 %; NEUT % 47.3 %; PLATELET COUNT 123 K/uL (130-400); RED BLOOD COUNT 4.71 M/uL (4.7-6.1); WHITE BLOOD COUNT 3.89 K/uL (4.8-10.8)
[2017-05-11 10:47] LABS: BUN/CREATININE RATIO 15.6 (10-20); CALCIUM 9.4 mg/dl (8.5-10.1); POTASSIUM 4.1 mmol/L (3.5-5.1)
[2017-05-11 10:50] LABS: C-REACTIVE PROTEIN 0.62 mg/dl (0-0.29)
[2017-05-11 10:51] LABS: INR 1.1 (0.9-1.1); PARTIAL THROMBOPLASTIN RATIO 1.7; PROTHROMBIN TIME (PATIENT) 11.9 SECONDS (9.0-12.0)
--- NOTE | 2017-05-24 08:13 | HISTORY & PHYSICAL EXAMINATION ---
DATE OF ADMISSION: 05/26/2017 CHIEF COMPLAINT: Left knee pain. 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 He has a long history of bilateral knee pain and discomfort and problems. He underwent a right knee replacement back in 2009 and has done well from this. Over the years, he has developed increased pain and discomfort in his left knee. He does have a history of an open meniscectomy in this [place] [address] Garcia. We have been treated him extensively with injections to try and avoid surgery, but he is really debilitated by his pain. He uses a cane to get around. The shots helped him minimally. He now would like to proceed with surgical treatment. Of note, the patient does have a history of intermittent atrial fibrillation, but now off Coumadin due to some bleeding in his retina. PAST MEDICAL HISTORY: Significant for: 1. Intermittent atrial fibrillation. 2. Back pain/lumbar spondylosis. 3. BPH. PAST SURGICAL HISTORY: Includes: 1. Right knee open, meniscectomy in 1964. 2. Left knee open meniscectomy in 1963. 3. Right knee replacement done in 2009. 3. Upper endoscopy for an ulcer. ALLERGIES: MERCURY. MEDICATIONS: Base medicines. CURRENT MEDICINES: Include: 1. Hydrochlorothiazide. 2. Trazodone. 3. Vitamin B12. 4. Ocuvite. SOCIAL HISTORY: Significant for an 82-year-old male. He is retired. FAMILY HISTORY: Noncontributory. REVIEW OF SYSTEMS: Significant for intermittent atrial fibrillation. He is off Coumadin. Denies any current chest pain or shortness of breath. No history of DVT or PE. No bleeding problems. PHYSICAL EXAMINATION: GENERAL: Shows a healthy, pleasant elderly male. He looks about his stated age. HEENT: Benign. NECK: Supple. No lymphadenopathy. LUNGS: Clear to auscultation. HEART: Has a regular rate and rhythm. ABDOMEN: Soft, nontender, nondistended. EXTREMITIES: Grossly neurovascularly intact except as follows: Examination of the left knee reveals the patient walks with an antalgic gait. He comes in using a cane, but can walk independently. He has got varus alignment to his knee with a varus thrust. He has got some chronic stasis changes distally. No apparent independent ulcers. Range of motion is 10 degrees short of full extension and 110 degrees of flexion. No pain with hip motion. X-RAYS: X-rays of the left knee were reviewed. It shows advanced left knee DJD. He has got complete loss of his medial joint space. He has got subchondral sclerosis. He has got osteophytes of mediofemoral condyle and medial tibial plateau. 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 Minimal response to conservative treatment. He would like to have his left knee fixed. PLAN: We are going to take him to the operating room and do a left total knee replacement. The risks and benefits of this procedure were explained to the patient including but not limited to DVT, PE, , infection, neurological injury, vascular injury, bleeding problem, pain, limited range of motion, stiffness, failure to relieve of symptoms, incomplete relief of symptoms, need for further surgery in the future, fracture, leg length inequality, nerve palsy, persistent pain, and wound breakdown. The patient understands and desires to proceed. Informed consent was obtained. I did talk to him explicitly about his diastasis changes distally and we have to be very vigilant about him wearing his ADRIANO stockings and controlling his edema. As far as discharge plans, he is hoping to go to [facility] postoperatively. He is , but based on his age, it would be best for him to go for a rehab stay. RAJ
[~2017-05-26] VITALS: Ht 176.5 cm; Wt 93.7 kg
[2017-05-26] VITALS (8 sets, daily range): BP systolic 111–162; BP diastolic 42–85; PULSE 47–72; TEMP 36.3–36.8; O2SAT 93–98; Ht 176.5 cm; Wt 93.7 kg
[~2017-05-26 05:07] MED LIST changes: -ACET-24 PO; -ASPEC325 PO; -ULT50X PO
[2017-05-26] MEDS ORDERED: GABAPENTIN 300 MG CAP PO SCH (06:00)
[2017-05-26] MEDS ORDERED: FAMOTIDINE 20 MG TAB PO SCH (06:00)
[2017-05-26] MEDS ORDERED: LACTATED RINGER'S 1000ML IV SCH (06:00)
[2017-05-26] MEDS ORDERED: CEFAZOLIN 2000 MG/60 ML D5W 60 ML IV SCH (06:00)
[2017-05-26] MEDS ORDERED: BUPIVACAINE LIPOSOME 266 MG, BUPIVACAINE/EPINEPHRINE INJ 50 ML, SODIUM CHLORIDE 0.9% PF... INFIL SCH ×3 (06:00)
[2017-05-26] MEDS ORDERED: SCOPOLAMINE 1.5 MG TDSY TD SCH (06:00)
[2017-05-26] MEDS ORDERED: METOCLOPRAMIDE HCL 10 MG TAB PO SCH (06:00)
[2017-05-26] MEDS ORDERED: LACTATED RINGER'S 1000ML 1,000 ML IV SCH (06:00)
[2017-05-26] MEDS ORDERED: ACETAMINOPHEN 500 MG TAB PO SCH (06:00)
[2017-05-26] MEDS ORDERED: TRANEXAMIC ACID INJ 1,000 MG in SODIUM CHLORIDE 0.9% 100ML 100 ML IV SCH ×2 (06:00→12:00)
[2017-05-26] MEDS ORDERED: BUPIVACAINE 0.5 % 5 MG/1 ML PF 10ML VIAL ONE (06:29)
[2017-05-26] MEDS ORDERED: EpINEphrine INJ 1MG/ML AMP 1 MG/ML AMP ONE (06:30)
[2017-05-26] MEDS ORDERED: BUPIVACAINE 0.25% 30 ML VIAL ONE (06:30)
[2017-05-26 06:35] LABS: INR 1.1 (0.9-1.1); PARTIAL THROMBOPLASTIN RATIO 1.6; PROTHROMBIN TIME (PATIENT) 11.8 SECONDS (9.0-12.0)
[2017-05-26] MEDS ORDERED: BUPIVACAINE/EPINEPHRINE 0.25% 1:200,000 30 ML VIAL ONE (06:35)
[2017-05-26] MEDS ORDERED: SODIUM CHLORIDE 0.9% PF 50 ML VIAL ONE (06:35)
[2017-05-26] MEDS ORDERED: BUPIVACAINE LIPOSOME 1/3% 266 MG/20 ML VIAL INFIL ONE (06:35)
[2017-05-26] MEDS ORDERED: BACITRACIN 50000 UNIT VIAL ONE (06:35)
[2017-05-26] MEDS ORDERED: MIDAZOLAM HCL 1 MG/ML 2ML VIAL ONE (06:38)
[2017-05-26] MEDS ORDERED: FENTANYL CITRATE INJ 50 MCG/1 ML 2 ML VIAL ONE (06:38)
--- NOTE | 2017-05-26 06:53 | History & Physical Bridge Note ---
H&P Re-Evaluation Bridge Note: I have examined the patient, reviewed the History & Physical and in the interval since the performance of the History & Physical I have noted the following changes of clinical significance: No changes noted
[2017-05-26] MEDS ORDERED: PROPOFOL IV EMULSION 10 MG/ML 20 ML VIAL IV ONE (07:49)
[2017-05-26] MEDS ORDERED: EpHEDrine SULFATE 50MG/5ML SYR ONE (07:49)
[2017-05-26] MEDS ORDERED: LIDOCAINE HCL 2% 2 ML VIAL (20MG/ML) ONE (07:49)
[2017-05-26] MEDS ORDERED: MEPERIDINE HCL 25 MG/ML CARP IV PRN (08:00)
[2017-05-26] MEDS ORDERED: NALOXONE HCL 0.4 MG/1 ML VIAL/CARP IV PRN (08:00)
[2017-05-26] MEDS ORDERED: ONDANSETRON INJ 2 MG/ML 2 ML VIAL IV PRN ×2 (08:00→09:00)
[2017-05-26] MEDS ORDERED: HYDROmorphone INJ 2 MG/ML SYR/VIAL IV PRN (08:00)
[2017-05-26] MEDS ORDERED: FLUMAZENIL 0.1 MG/1 ML 10 ML VIAL IV PRN (08:00)
[2017-05-26] MEDS ORDERED: LABETALOL HCL IV 5 MG/ML 20ML IV PRN (08:00)
[2017-05-26] MEDS ORDERED: EpHEDrine SULFATE INJ 50 MG/ML AMP IV PRN (08:00)
[2017-05-26] MEDS ORDERED: PHENYLEPHRINE 100MCG/ML 5ML SYR IV PRN (08:00)
[2017-05-26] MEDS ORDERED: ATROPINE SULFATE 0.1 MG/ML 5ML SYR IV PRN (08:00)
--- NOTE | 2017-05-26 08:53 | [facility] Post Operative Brief Note ---
Immediate Operative Summary Operative Date May 26, 2017. Pre-Operative Diagnosis Advanced Left Knee Degerative Joint Disease Post-Operative Diagnosis Advanced Left Knee Degerative Joint Disease Procedure(s) Performed Left Total Knee Arthroplasty Surgeon Dr. Garay Bacteriology Professor Surgeon(s) CHLOE Jose Estimated Blood Loss 100 ml Findings Left Knee DJD Specimens A. Left Knee Bone and Tissue Drains None Anesthesia General Complication(s) None Disposition Recovery Room / PACU
[2017-05-26] MEDS ORDERED: ALUMINUM/MAGNESIUM/SIMETH (MAALOX MAX) 30 ML UDC PO PRN (09:00)
[2017-05-26] MEDS ORDERED: HYDROmorphone INJ 0.5 MG/0.5 ML SYR IV PRN (09:00)
[2017-05-26] MEDS ORDERED: ZOLPIDEM TARTRATE 5 MG TAB PO PRN (09:00)
[2017-05-26] MEDS ORDERED: METOCLOPRAMIDE HCL INJ 5 MG/ML 2 ML VIAL IV PRN (09:00)
[2017-05-26] MEDS ORDERED: FLUTICASONE PROPIONATE NA SPR 16 GM BTL NAE PRN (09:00)
[2017-05-26] MEDS ORDERED: BISACODYL 10 MG SUPP PR PRN (09:00)
[2017-05-26] MEDS ORDERED: TAMSULOSIN HCL 0.4 MG CAP PO PRN (09:00)
[2017-05-26] MEDS: FENTANYL CITRATE INJ 50 MCG/1 ML 2 ML VIAL IV PRN ×4 (09:11→09:26)
--- NOTE | 2017-05-26 09:29 | DIAGNOSTIC IMAGING REPORT ---
LEFT KNEE 2 VIEWS History: Left total knee arthroplasty. Degenerative arthritis. Postop. FINDINGS: The patient is status post a left total knee arthroplasty. The hardware is intact. No fracture or dislocation. Skin yossi are in place. IMPRESSION: Left total knee arthroplasty. No evidence for hardware complication. Electronically signed by: Joel Ramirez M.D. 05/26/2017 9:28 AM Dictated Date/Time: 05/26/2017 9:26 AM
--- NOTE | 2017-05-26 09:33 | OPERATIVE REPORT ---
DATE OF OPERATION: 05/26/2017 PREOPERATIVE DIAGNOSIS: Left knee degenerative joint disease. POSTOPERATIVE DIAGNOSIS: Same. PROCEDURE PERFORMED: Left cemented posterior stabilized total knee arthroplasty. SURGEON: Dr. Randall Garay. IT PROGRAMMER ANALYST: Jesu Rain PA-C. COMPLICATIONS: None. ESTIMATED BLOOD LOSS: 100 mL. FLUID REPLACEMENT: 1300 mL crystalloid fluid replacement. ANESTHESIA: General with adductor canal block. DRAINS: None. SPECIMENS: Left knee sent for pathology. TOURNIQUET TIME: 61 minutes at 300 mmHg. OPERATIVE INDICATIONS: The patient is an 82-year-old gentleman who has had a long history of bilateral knee pain and discomfort. He underwent a right knee replacement 7 years ago. Over the past 10 years, he has developed progressive and increasing pain in his left knee. We tried to treat him conservatively as long as possible, but this became less effective. It is really affecting his quality of life. He is using a cane to get around. He elected to proceed with operative treatment. OPERATIVE FINDINGS: Operative findings revealed advanced left knee DJD. He had extensive grade 4 changes and eburnation of the medial femoral condyle and medial tibial plateau. He had extensive wear of the medial and posteromedial tibial plateau. He had a moderate sized joint effusion, a fixed varus deformity to his knee. He had osteophytes in the posterior compartment as well as the medial compartment. OPERATIVE IMPLANTS: Operative implants consisted of: 1. Biomet Vanguard size 67.5 left posterior stabilized femoral component. 2. Biomet size 79 tibial tray. 3. A 10 mm posterior stabilized polyethylene insert. 4. A 31 x 8 all poly patella. OPERATIVE PROCEDURE: The patient taken to the operating room, identified and placed on the operating table in supine position. All contact areas were appropriately padded. IV antibiotics were provided by anesthesia team. A adductor canal block had been provided in the holding area. A left thigh tourniquet was placed. A general anesthetic was implemented by anesthesia team. The left lower extremity was then prepped and draped in the usual sterile fashion. His left leg was elevated and exsanguinated with Esmarch and tourniquet was placed at 300 mmHg. An anterior approach of the left knee was then performed through a longitudinal incision centered over the patella. Sharp dissection was carried down through the subcutaneous tissues down to the level of the extensor mechanism. A medial parapatellar arthrotomy incision was made. Some subperiosteal dissection was carried out medially. The fat pad was resected from beneath the patellar tendon. The lateral patellofemoral ligament was released. The patella was everted and knee was flexed. The osteophytes were taken off the distal femur. The ACL was chronically torn. The PCL was released from the distal femur and the tibia subluxated anteriorly. The external tibial alignment jig was then placed in the anterior face of the tibia and adjusted 16 mm medially. Proximal tibial cut was made essentially flush with the most deficient aspect of the posteromedial tibial plateau. Tibia was sized to a size 79. Some osteophytes were taken off medial and posteromedially. Attention was then drawn to the femur. The distal femur was entered with a sharp drill. Intramedullary canal was suctioned. A left 6-degree valgus cutting guide was placed and distal femoral cutting block was pinned in place. Distal femoral cut was made to take an additional 3 mm of bone off the distal femur. The femur was then sized to a size 67.5. We downsized this slightly. The AP cutting block was pinned parallel to the epicondylar axis, which was 4 degrees of external rotation. The anterior cut, anterior chamfer, posterior cut, posterior chamfer cuts were made. Box cutting guide was placed and adjusted slightly lateral and the box cut was made. The knee was flexed. The remnants of the medial and lateral menisci were excised. The osteophytes were taken off the posterior aspect of the femur. A trial femoral component was placed. Tibial tray was pinned in maximum external rotation and the drill and stem punch were used to create defect in proximal tibia for the tibial tray. The knee was then trialed and the 10 mm insert fit most appropriately. Attention was then drawn to the patella. The patella was cleaned of all soft tissues. Patella thickness measured 23 mm and cut down to 14. It was sized to a size 31 patella. Lug holes were drilled for a 31 patella. Lateral osteophyte was removed. Patella button was placed. Knee was taken through range of motion and the patella tracked nicely with no thumbs test. Attention was then drawn toward placement of the permanent components. All trial components were removed. A bone plug was placed in the distal femur to limit blood loss. A double batch of Palacos G cement was mixed. A left size 67.5 posterior stabilized femoral component, size 79 tibial tray, a 10 mm posterior stabilized polyethylene insert, and a 31 x 8 all poly patella were then cemented in place. Knee was brought out into full extension until cement hardened. A final cement check was then performed. Pericapsular tissues were injected with a total of 100 mL of a combination of 20 mL of Exparel, 30 mL of normal saline, 50 mL of 0.25% Marcaine with epinephrine. The patient did receive 1 gram of tranexamic acid. The tourniquet was then let down for final tourniquet time of 61 minutes. Hemostasis was assured with use of electrocautery. There was a fairly large bleeder in the area of the inferior lateral geniculate artery and we spent some time making sure that we cauterized this adequately. The wound was then once again irrigated. The extensor mechanism was then closed with a combination of #1 PDS suture and #1 Vicryl suture in a [id number] fashion. Extensor mechanism was checked and found to be intact. Subcutaneous tissues were then closed with 2-0 Dexon suture in a buried interrupted fashion. Skin was closed skin yossi. Leg was then cleaned and dried and a sterile dressing of Xeroform, 4 x 4, sterile cast padding and an Nestor bandage were applied. The patient then brought out of general anesthesia and transferred to the recovery room in stable condition. The patient tolerated the procedure with no complications. All needle and sponge counts were correct at the end of the operation. I attest to the content of the Intraoperative Record and any orders documented therein. Any exception s are noted below.
--- NOTE | 2017-05-26 09:42 | Anesthesiology Progress Note ---
Anesthesia Post Op Note Date & Time May 26, 2017 at 09:42 Vital Signs Pain Intensity: 3 Vital Signs Past 12 Hours Date Time Temp Pulse Resp B/P (MAP) Pulse Ox O2 Delivery O2 Flow Rate FiO2 05/26/17 09:30 36.4 62 14 134/62 94 Nasal Cannula 4 05/26/17 09:20 66 14 127/75 97 Oxymask 10 05/26/17 09:10 72 14 122/62 98 Oxymask 10 05/26/17 09:02 36.8 77 14 128/59 99 Oxymask 10 05/26/17 06:26 36.6 64 18 162/85 94 Room Air Notes Mental Status: alert / awake / arousable, participated in evaluation Pt Amnestic to Procedure: Yes Nausea / Vomiting: adequately controlled Pain: adequately controlled Airway Patency, RR, SpO2: stable & adequate BP & HR: stable & adequate Hydration State: stable & adequate Anesthetic Complications: no major complications apparent
[2017-05-26] MEDS: D5W AND 1/2NSS + 20MEQ KCL 1,000 ML IV SCH ×2 (11:04→18:14)
[2017-05-26] MEDS: KETOROLAC TROMETHAMINE 15 MG/ML VIAL IV. SCH ×3 (11:43→23:53)
[2017-05-26] MEDS: PANTOprazole SOD 40 MG TAB PO SCH (12:36)
[2017-05-26] MEDS: DOCUSATE SODIUM 100 MG CAP PO SCH ×2 (12:36→20:40)
[2017-05-26] MEDS: FERROUS GLUCONATE 324 MG TAB PO SCH ×2 (12:37→18:14)
[2017-05-26] MEDS: MULTIVITAMIN TAB PO SCH (12:38)
[2017-05-26] MEDS: ASPIRIN 325 MG ECTAB PO SCH ×2 (12:39→20:40)
[2017-05-26] MEDS: ACETAMINOPHEN 500 MG TAB PO SCH ×3 (14:00→21:32)
[2017-05-26] MEDS: CEFAZOLIN IV 2,000 MG in DEXTROSE 5% 50ML 50 ML IV SCH ×2 (15:13→21:31)
[2017-05-26] MEDS: CHECK SCOPOLAMINE PATCH PLACEMENT SCH ×2 (15:16→23:53)
--- NOTE | 2017-05-26 15:32 | Cardiology Consultation ---
Cardiology Consultation Date of Consultation: May 26, 2017. Requesting Physician: Dr. Garay Reason for Consultation: Atrial fibrillation Pt evaluation today including: conversation w/ patient, physical exam, lab review, review of studies, review of inpatient medication list History of Present Illness This is a very pleasant 81-year-old gentleman with a history of atrial arrhythmias going back to around 2007, subsequently identified as atrial flutter. 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 We performed ablation of atrial flutter on 07/24/2011 at [facility]. He did well until recently when he was identified as having atrial fibrillation, although in the interim some electrocardiograms are read as atrial fibrillation although typically he was in sinus rhythm with premature atrial beats. Due to his prior and after ocular hemorrhage she was not started on anticoagulation by his choice. He is now admitted following left knee replacement surgery. He has no complaints, other than some minor left knee discomfort. He has no chest discomfort, no lightheadedness or dizziness and no palpitations. Past Medical/Surgical History Atrial flutter (status post ablation) Permanent atrial fibrillation Intraocular hemorrhage DJD Family History Unknown family medical history Social History Smoking Status: Former Smoker History of Alcohol Use: Yes (2-3 glasses of wine/day) Review of Systems Constitutional: No fever, No weight loss, No weakness Respiratory: No cough, No wheezing, No shortness of breath, No dyspnea on exertion Cardiac: No chest pain, No orthopnea, No PND, No edema, No palpitations Abdomen: No pain, No nausea, No vomiting, No diarrhea, No GI bleeding Male : No urinary frequency, No nocturia more than once/night, No slowing stream, No sexual dysfunction Neurologic: No paralysis, No weakness, No numbness/tingling, No balance problems Heme: No abnormal bleeding/bruising, No clotting problems Endo: No fatigue Skin: No problem reported Postoperative left knee pain as expected All Other Systems: Reviewed and Negative Allergies Coded Allergies: Merbromin (Verified Allergy, Unknown, ALLERGIC TO MERCUROCHROME, RASH, ) Sulfamethoxazole w/Trimethoprim (Verified Allergy, Unknown, GI UPSET, FEVER, HEADACHE, 05/26/17) Medications Current Inpatient Medications Medications (Trade) Dose Ordered Sig/Shaila Route Start Time Stop Time Status Last Admin Dose Admin Lactated Ringer's 1,000 ml @ 15 mls/hr Q24H IV 05/26/17 06:00 05/27/17 05:59 Lactated Ringer's 1,000 ml @ 60 mls/hr [id number] IV 05/26/17 06:00 05/26/17 22:39 05/26/17 06:11 60 MLS/HR Cefazolin Sodium 60 ml @ 100 mls/hr PREOP IV 05/26/17 06:00 05/26/17 18:00 05/26/17 06:59 100 MLS/HR Acetaminophen (Tylenol Tab) 1,000 mg PREOP PO 05/26/17 06:00 05/26/17 18:00 05/26/17 05:58 1,000 MG Bupivacaine Liposome 266 mg/ Bupivacaine HCl/ Epinephrine Bitart 50 ml/ Sodium Chloride 30 ml/Syringe 100 ml @ 0 mls/hr 06 INFIL 05/26/17 06:00 05/26/17 18:00 05/26/17 07:42 100 MLS/HR Famotidine (Pepcid Tab) 20 mg PREOP PO 05/26/17 06:00 05/26/17 18:00 05/26/17 05:57 20 MG Gabapentin (Neurontin Cap) 300 mg PREOP PO 05/26/17 06:00 05/26/17 18:00 05/26/17 05:57 300 MG Metoclopramide HCl (Reglan Tab) 10 mg PREOP PO 05/26/17 06:00 05/26/17 18:00 05/26/17 05:57 10 MG Miscellaneous (Remove Transderm-Scop Patch) 1 ea Q72H N/A 05/29/17 06:00 05/29/17 06:01 Miscellaneous Information (Check Scopolamine Patch Placement) 1 ea QS N/A 05/26/17 16:00 05/28/17 05:59 Potassium Chloride/Dextrose/ Sod Cl 1,000 ml @ 125 mls/hr Q8H IV 05/26/17 10:15 05/27/17 10:14 05/26/17 11:04 125 MLS/HR Cefazolin Sodium 2000 mg/Dextrose 60 ml @ 100 mls/hr Q8H IV 05/26/17 14:00 05/26/17 22:35 05/26/17 15:13 100 MLS/HR Ketorolac Tromethamine (Toradol Inj) 15 mg Q6H IV. 05/26/17 12:00 05/27/17 06:01 05/26/17 11:43 15 MG Acetaminophen (Tylenol Tab) 1,000 mg Q8H PO 05/26/17 14:00 06/25/17 13:59 05/26/17 15:14 1,000 MG Magnesium Hydroxide (Milk Of Magnesia Susp) 30 ml Q6H PRN PO 05/26/17 09:00 06/25/17 08:59 Bisacodyl (Dulcolax Supp) 10 mg DAILY PRN MN 05/26/17 09:00 06/25/17 08:59 Senna (Senokot Tab) 17.2 mg HS PO 05/26/17 21:00 06/25/17 20:59 Docusate Sodium (coLACE CAP) 100 mg BID PO 05/26/17 09:00 06/25/17 08:59 05/26/17 12:36 100 MG Al Hydrox/Mg Hydrox/Simethicone (Maalox Max Susp) 15 ml Q4H PRN PO 05/26/17 09:00 06/25/17 08:59 Zolpidem Tartrate (Ambien Tab) 5 mg HSZ PRN PO 05/26/17 09:00 06/25/17 08:59 Multivitamins (Multivitamin Tab) 1 tab QAM PO 05/26/17 09:00 06/25/17 08:59 05/26/17 12:38 1 TAB Ondansetron HCl (Zofran Inj) 4 mg Q6H PRN IV 05/26/17 09:00 06/25/17 08:59 Metoclopramide HCl (Reglan Inj) 10 mg Q6H PRN IV 05/26/17 09:00 06/25/17 08:59 Ferrous Gluconate (Ferrous Gluconate Tab) 324 mg TIDM PO 05/26/17 11:30 06/25/17 11:59 05/26/17 12:37 324 MG Pantoprazole Sodium (Protonix Tab) 40 mg QAM PO 05/26/17 09:00 06/25/17 08:59 05/26/17 12:36 40 MG Aspirin (Ecotrin Tab) 325 mg BID PO 05/26/17 09:00 06/25/17 08:59 05/26/17 12:39 325 MG Tamsulosin HCl (Flomax Cap) 0.4 mg QAM PRN PO 05/26/17 09:00 06/25/17 08:59 Tramadol HCl (Ultram Tab) 1 tablet for pain rating... Q4H PRN PO 05/26/17 09:00 06/25/17 08:59 Hydromorphone HCl (Dilaudid Inj) 0.5 mg Q1H PRN IV 05/26/17 09:00 06/09/17 08:59 Cyanocobalamin (Vitamin B-12 Tab) 1,000 mcg QPM PO 05/26/17 21:00 06/25/17 20:59 Fluticasone Propionate (Flonase Nasal [place]) 2 sprays DAILY PRN ROMEO 05/26/17 09:00 06/25/17 08:59 Hydrochlorothiazide (Hydrochlorothiazide Tab) 25 mg QPM PO 05/26/17 21:00 06/25/17 20:59 Multivitamins/ Minerals (Multivitamin W/ Minerals Tab) 1 tab QPM PO 05/26/17 21:00 06/25/17 20:59 Terazosin HCl (Hytrin Cap) 10 mg QPM PO 05/26/17 21:00 06/25/17 20:59 Physical Exam Vital Signs Past 12 Hours Date Time Temp Pulse Resp B/P (MAP) Pulse Ox O2 Delivery O2 Flow Rate FiO2 05/26/17 12:00 Nasal Cannula 3.0 05/26/17 11:35 53 16 130/49 (76) 95 Nasal Cannula 3.0 05/26/17 11:04 95 Nasal Cannula 3.0 05/26/17 10:45 36.5 64 18 111/62 (78) 93 Nasal Cannula 3.5 05/26/17 10:02 36.3 72 16 135/42 (73) 95 Nasal Cannula 4.0 05/26/17 09:40 36.4 71 14 122/57 94 Nasal Cannula 4 05/26/17 09:30 36.4 62 14 134/62 94 Nasal Cannula 4 05/26/17 09:20 66 14 127/75 97 Oxymask 10 05/26/17 09:10 72 14 122/62 98 Oxymask 10 05/26/17 09:02 36.8 77 14 128/59 99 Oxymask 10 05/26/17 06:26 36.6 64 18 162/85 94 Room Air Constitutional: General Apperance: heathly-appearing Level of Distress: NAD Psychiatric: Mental Status: active & alert Head: normocephalic Eyes: EOM: EOMI ENMT: normal ENT inspection, hearing grossly normal Neck: supple, no masses Lungs: Respiratory effort: no dyspnea, good air movement Auscultation: breath sounds normal, no wheezing Cardiovascular: Heart Auscultation: no murmurs, no rubs, no gallops, irregular rate rhythm Peripheral Pulses: Bruits: none appreciated Abdomen: Bowel Sounds: normal Inspection & Palpation: soft, no tenderness, guarding & rebound, no masses Musculoskeletal: pertinent finding (left leg immobile) Extremities: no edema Neurologic: Cranial Nerves: grossly intact Sensation: grossly intact Data Laboratory Results: Last 24 Hours Test 05/26/17 06:02 Prothrombin Time 11.8 SECONDS Prothromb Time International Ratio 1.1 Activated Partial Thromboplast Time 41.4 SECONDS Partial Thromboplastin Ratio 1.6 EKG: Atrial fibrillation with a controlled ventricular response, right bundle branch block and left anterior fascicular block. Lateral ST-T abnormalities. No acute changes. Telemetry reviewed: Atrial fibrillation with several pauses postoperatively, one 4.6 seconds in duration. He was awake and this was asymptomatic, he was in bed. Assessment & Plan #1. Postop: He is doing well postop, minimal discomfort. He is on telemetry. #2. Atrial fibrillation: His heart rate is generally slow on no AV frances blocking medications. This has been his pattern, however he did have a pause 4.6 seconds shortly after surgery. This may be due to the postop pain (although he doesn't recall having that) or related to the postoperative state. We will observe this on monitoring, if he continues to have significant bradycardia we may have to consider a pacemaker. He is opposed to anticoagulation due to bleeding in his eye in the past, although technically he should be on an anticoagulant. Thank you for allowing me to participate in his care.
--- NOTE | 2017-05-26 15:41 | PROGRESS NOTE ---
DATE: 05/26/2017 SUBJECTIVE: An 82-year-old gentleman postop from a left knee replacement. He is doing well. Not having any significant pain. Denies any chest pain or shortness of breath. Not feeling dizzy or lightheaded. OBJECTIVE: VITAL SIGNS: Temperature is 36.5. Vital signs stable. GENERAL: Physical examination reveals a pleasant elderly male. He is sitting up in bed and looks pretty comfortable. EXTREMITIES: Examination of the left leg reveals the dressing to be clean, dry and intact. There is no drainage. Leg is well aligned. He can dorsiflex and plantarflex his foot appropriately. He is neurologically intact. X-RAYS: X-rays of the left knee from recovery room reviewed. It shows a left cemented posterior stabilized total knee arthroplasty. Components looked to be in good position. No signs of problems. ASSESSMENT: An 82-year-old gentleman postop from a left knee replacement, doing well. He does have a significant history of intermittent atrial fibrillation. We placed him on a telemetry unit overnight at cardiology's recommendations. We will have them follow him as well. His pain is controlled. He is neurologically intact. PLAN: 1. DVT prophylaxis including thigh-high TEDs, SCDs, and aspirin twice a day. 2. PT/OT. Left total knee protocol. 3. Pain control, doing well with current pain regimen. 4. IV antibiotics x24 hours. 5. Paroxysmal atrial fibrillation history. Will have cardiology follow him and manage any cardiac issues. 6. Disposition. He is hoping to be discharged to [facility] for a brief rehab stay once medically stable and recovered.
[2017-05-26] MEDS: HYDROCHLOROTHIAZIDE 25 MG TAB PO SCH (20:41)
[2017-05-26] MEDS: CYANOCOBALAMIN 500 MCG TAB (VIT B-12) PO SCH (20:43)
[2017-05-26] MEDS: CEROVITE ADV FORMULA TAB PO SCH (20:43)
[2017-05-26] MEDS: SENNA 8.6 MG TAB PO SCH (20:43)
[2017-05-27] VITALS (9 sets, daily range): BP systolic 115–153; BP diastolic 57–76; PULSE 42–86; TEMP 36.7–37; O2SAT 91–92
[2017-05-27] MEDS: D5W AND 1/2NSS + 20MEQ KCL 1,000 ML IV SCH (02:48)
[2017-05-27] MEDS: KETOROLAC TROMETHAMINE 15 MG/ML VIAL IV. SCH (05:52)
[2017-05-27] MEDS: ACETAMINOPHEN 500 MG TAB PO SCH ×3 (05:53→21:37)
[2017-05-27 07:06] LABS: HEMATOCRIT 34.9 % (42-52); MEAN CELL VOLUME 95.6 fL (80-100); MEAN CORPUSCULAR HEMOGLOBIN 31.5 pg (25-34); RED BLOOD COUNT 3.65 M/uL (4.7-6.1); WHITE BLOOD COUNT 5.24 K/uL (4.8-10.8)
[2017-05-27 07:33] LABS: BUN/CREATININE RATIO 18.2 (10-20); CALCIUM 7.9 mg/dl (8.5-10.1); CREATININE 1.2 mg/dl (0.60-1.40); POTASSIUM 3.9 mmol/L (3.5-5.1)
[2017-05-27 07:42] LABS: MEAN PLATELET VOLUME 9.5 fL (7.4-10.4); PLATELET COUNT 84 K/uL (130-400); PLT ESTIMATE DECREASED
[2017-05-27] MEDS: PANTOprazole SOD 40 MG TAB PO SCH (07:57)
[2017-05-27] MEDS: CHECK SCOPOLAMINE PATCH PLACEMENT SCH ×2 (07:58→15:31)
[2017-05-27] MEDS: DOCUSATE SODIUM 100 MG CAP PO SCH ×2 (07:58→21:13)
[2017-05-27] MEDS: ASPIRIN 325 MG ECTAB PO SCH ×2 (07:58→21:13)
[2017-05-27] MEDS: MULTIVITAMIN TAB PO SCH (07:58)
[2017-05-27] MEDS: FERROUS GLUCONATE 324 MG TAB PO SCH ×4 (07:58→17:15)
--- NOTE | 2017-05-27 08:53 | Anesthesiology Progress Note ---
Anesthesia Post Op Note Date & Time May 27, 2017 at 08:52 Vital Signs Vital Signs Past 12 Hours Date Time Temp Pulse Resp B/P (MAP) Pulse Ox O2 Delivery O2 Flow Rate FiO2 05/27/17 07:16 36.9 61 20 128/68 (88) 91 Room Air 05/27/17 04:37 36.8 65 18 115/64 (81) 92 Room Air 05/27/17 04:00 92 Room Air 05/27/17 00:14 36.7 47 18 116/62 (80) 92 Room Air 05/27/17 00:01 92 Room Air Notes Mental Status: alert / awake / arousable, participated in evaluation Pt Amnestic to Procedure: Yes Nausea / Vomiting: adequately controlled Pain: adequately controlled Airway Patency, RR, SpO2: stable & adequate BP & HR: stable & adequate Hydration State: stable & adequate Anesthetic Complications: no major complications apparent
[2017-05-27] MEDS ORDERED: ACET-24 PO (09:39)
[2017-05-27] MEDS ORDERED: ASPEC325 PO (09:39)
[2017-05-27] MEDS ORDERED: ULT50X PO (09:39)
--- NOTE | 2017-05-27 09:43 | Discharge Instructions ---
Discharge Instructions Date of Service May 27, 2017. Admission Reason for Admission: Left Knee Degenerative Joint Disease Discharge Discharge Diagnosis / Problem: Left Knee Replacement Discharge Goals Goal(s): Decrease discomfort, Improve function, Increase independence, Improve disease control, Therapeutic intervention Activity Recommendations Activity Level: Assistance Required Therapies: Physical Therapy, Occupational Therapy Weightbearing Status: Left weightbearing . Additional Information Patient informed of condition: Yes Advance Directives: Yes DNR: No Level of Care: Acute Rehab Communicable Disease: No Prognosis: Improving Instructions / Follow-Up Instructions / Follow-Up ACTIVITY RECOMMENDATIONS: Physical Therapy: * You will go to physical therapy three times each week for four to six weeks after your surgery in order to regain your knee range of motion and to retrain your knee to work properly. * It is just as important to make sure you are getting your knee perfectly straight as it is to regain your knee bend. * Taking a pain pill an hour before therapy can help you have a more productive and comfortable therapy session. Home Exercise: * You were shown a series of exercises (heel props, heel slides, etc.) in the hospital. Do these exercises three to four times each day including the exercises you were shown in physical therapy. Walking: * Get up and walk several times each day. For the first four weeks, try not to stand or walk for more than one hour at a time. If you do stand or walk for more than one hour, you will not hurt anything, but your knee and leg will likely swell. * As you feel comfortable, you may change from the walker or crutches to a cane and then to independent walking. MEDICATIONS: New Medicine: * You will likely be taking one or more of these medications: 1. Tramadol - A quick and shorter-acting pain medication. Take one to two tablets every four to six hours to lessen your pain. 2. Aspirin - Thins your blood to lessen the chance of forming a blood clot. * The most common side effects of pain medicine and iron are nausea and constipation. If nausea or constipation is too much of a problem or if you have any questions about your new medicines or doses, call [facility] at . We will try to help you manage these issues. VERY IMPORTANT TO READ AND REVIEW" Pain: * The immediate post-operative period after knee replacement surgery is often quite painful. * You are given a prescription for pain medicine. You should take it, as directed, when you need it, especially before physical therapy and before going to bed. Pain that interferes with sleep is very common and can last several months. * You will likely need pain medicine for the first four to six weeks. It will not stop all of the pain. The pain will lessen and as you feel better, you may change to milder pain medicine such as Tylenol. * The most common side effects of pain medicine are nausea and constipation, so don't take more than you need. SPECIAL CARE INSTRUCTIONS: TEDs/Elastic Stockings: * The white elastic stockings help limit swelling and prevent blood clots from forming in your legs. The more you wear them, the more they work. * Wear them for six weeks after knee replacement surgery and four weeks after partial knee replacement. Prevention of Infection: * Take antibiotics one hour before any dental cleaning, dental work, urological procedure, gastrointestinal procedure or any invasive surgery in order to prevent your new joint from getting infected. * You may get the antibiotics from the doctor performing the procedure or you may call our office at before and we will call in a prescription to the pharmacy of your choice. Things to Watch For: * Drainage from the incision site that occurs more than one week after your surgery. * Severely increased knee/leg pain or swelling. * Increased redness at the incision site. * Fever above 102 degrees Fahrenheit. * Unusual chest pain or shortness of breath. * Unusual pain or burning with urination. Call [facility] at with any of the above problems or if you have any questions about your medicines or recovery. FOLLOW UP VISIT: Make an appointment to see your doctor for approximately two weeks after surgery for a progress check and staple removal by calling the office at . Current Hospital Diet Patient's current hospital diet: Regular Diet Discharge Diet Recommended Diet: Regular Diet Procedures Procedures Performed: Left Total Knee Arthroplasty Pending Studies Studies pending at discharge: no Medical Emergencies . Who to Call and When: Medical Emergencies: If at any time you feel your situation is an emergency, please call 121 immediately. . Non-Emergent Contact Non-Emergency issues call your: Surgeon . . "Provider Documentation" section prepared by Randall Garay. . Core Measure Problem Core Measures: None
--- NOTE | 2017-05-27 10:08 | PROGRESS NOTE ---
DATE: 05/27/2017 SUBJECTIVE: An 82-year-old gentleman postop day 1 from left knee replacement. He is doing pretty well. He rates his pain 0-1. No chest pain or shortness of breath. Not feeling dizzy or lightheaded. OBJECTIVE: VITAL SIGNS: Temperature is 36.9. Vital signs stable. PHYSICAL EXAMINATION: GENERAL: Reveals a pleasant elderly male. He is sitting up in bed, looks pretty comfortable. He is talking to his . EXTREMITIES: Examination of the left leg reveals the dressing to be clean, dry, and intact. He can dorsiflex and plantarflex his foot appropriately. He is neurologically intact. LABORATORY DATA: Hemoglobin 11.5, hematocrit 34.9. Electrolytes are stable. ASSESSMENT: An 82-year-old gentleman with a history of some paroxysmal atrial fibrillation postop day 1 from a left total knee replacement. He is doing pretty well. His pain is controlled. He is neurologically intact. Slightly anemic without symptoms. PLAN: 1. DVT prophylaxis including thigh-high TEDs, SCDs, and aspirin twice a day. 2. PT/OT. Weight bear as tolerated. Left total knee protocol. 3. Pain control. Doing well with current pain regimen. 4. Anemia, currently asymptomatic. He will continue on iron supplementation. 5. Cardiac disease. Cardiology is following. We are going to transfer him to the orthopedic floor today on their recommendations. 6. Disposition: Plan to discharge to [facility] hopefully for a brief rehab stay once medically stable.
--- NOTE | 2017-05-27 10:09 | Cardiology Follow-Up ---
Subjective Date of Service: May 27, 2017. Pt evaluation today including: conversation w/ patient, conversation w/ family , physical exam, lab review, review of studies, review of inpatient medication list History of Present Illness This is a very pleasant 81-year-old gentleman with a history of atrial arrhythmias going back to around 2007, subsequently identified as atrial flutter. 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 We performed ablation of atrial flutter on 07/24/2011 at [place]. He did well until recently when he was identified as having atrial fibrillation, although in the interim some electrocardiograms are read as atrial fibrillation although typically he was in sinus rhythm with premature atrial beats. Due to his prior intraocular hemorrhage she was not started on anticoagulation by his choice. He was admitted following left knee replacement surgery. Today he is feeling well, he has no palpitations, no significant knee discomfort. He has not had any lightheadedness or dizziness, including getting out of bed this morning he is the bathroom. Social History Smoking Status: Former Smoker History of Alcohol Use: Yes (2-3 glasses of wine/day) Review of Systems Respiratory: No cough, No wheezing, No shortness of breath, No dyspnea on exertion Cardiac: No chest pain, No orthopnea, No PND, No edema, No palpitations Postoperative left knee pain as expected Medications Cardiovascular: Item Value Date Time Hydrochlorothiazide 25 mg 05/26/17 2100 (Hydrochlorothiazide QPM/PO 05/26/17 2041 Tab) Magnesium 30 ml 05/26/17 0900 Hydroxide Q6H PRN/PO (Milk Of Magnesia Susp) Aspirin 325 mg 05/26/17 0900 (Ecotrin Tab) BID/PO 05/27/17 0758 Objective Vital Signs Past 12 Hours Date Time Temp Pulse Resp B/P (MAP) Pulse Ox O2 Delivery O2 Flow Rate FiO2 05/27/17 08:00 Room Air 05/27/17 07:16 36.9 61 20 128/68 (88) 91 Room Air 05/27/17 04:37 36.8 65 18 115/64 (81) 92 Room Air 05/27/17 04:00 92 Room Air 05/27/17 00:14 36.7 47 18 116/62 (80) 92 Room Air 05/27/17 00:01 92 Room Air Last Recorded Weight-Kilograms: 93.700 Physical Exam Constitutional: General Apperance: heathly-appearing Level of Distress: NAD Lungs: Respiratory effort: no dyspnea, good air movement Auscultation: breath sounds normal, no wheezing Cardiovascular: Heart Auscultation: no murmurs, no rubs, no gallops, irregular rate rhythm Peripheral Pulses: Bruits: none appreciated Extremities: no edema Data Laboratory Results: Last 24 Hours Test 05/27/17 06:52 White Blood Count 5.24 K/uL Red Blood Count 3.65 M/uL Hemoglobin 11.5 g/dL Hematocrit 34.9 % Mean Corpuscular Volume 95.6 fL Mean Corpuscular Hemoglobin 31.5 pg Mean Corpuscular Hemoglobin Concent 33.0 g/dl RDW Standard Deviation 47.3 fL RDW Coefficient of Variation 13.5 % Platelet Count 84 K/uL Mean Platelet Volume 9.5 fL Platelet Estimate DECREASED Sodium Level 137 mmol/L Potassium Level 3.9 mmol/L Chloride Level 103 mmol/L Carbon Dioxide Level 30 mmol/L Anion Gap 4.0 mmol/L Blood Urea Nitrogen 22 mg/dl Creatinine 1.20 mg/dl Est Creatinine Clear Calc Drug Dose 52.2 ml/min Estimated GFR () 64.0 Estimated GFR (Non- 55.2 BUN/Creatinine Ratio 18.2 Random Glucose 126 mg/dl Calcium Level 7.9 mg/dl Telemetry reviewed: Atrial fibrillation throughout, several pauses early after surgery yesterday but none since. Through the night there are periods of a very regular supraventricular rhythm in the mid 40s, probably a junctional rhythm. Overall good heart rate control. Assessment and Plan #1. Postop: He is doing well postop, minimal discomfort. #2. Atrial fibrillation: He remains in atrial fibrillation I believe, during the night he had periods of a regular rhythm in the mid 40 bpm range, this appears to be a junctional rhythm but with underlying atrial fibrillation. I do not believe it represents atrial flutter or sinus rhythm. No further pauses since shortly after surgery, this was likely related to the postoperative state. He has no symptomatic bradycardia. At this point I would recommend continue observation and no pacemaker, I don't think he needs to stay on telemetry. He should be on anticoagulation for his arrhythmia however due to his prior intraocular hemorrhage he does not want anticoagulation therefore we have not been using it. I will plan on having him come into the office in 3 or 4 weeks and we will get a 24-hour monitor prior to that visit. I would avoid rate control medications ( calcium or beta blockers). Thank you for allowing me to participate in his care.
[2017-05-27] MEDS: MAGNESIUM HYDROXIDE SUSP 30 ML UDC PO PRN (11:10)
[2017-05-27] MEDS: TRAMADOL HCL 50 MG TAB PO PRN (15:30)
[2017-05-27] MEDS: HYDROCHLOROTHIAZIDE 25 MG TAB PO SCH (21:12)
[2017-05-27] MEDS: CEROVITE ADV FORMULA TAB PO SCH (21:13)
[2017-05-27] MEDS: CYANOCOBALAMIN 500 MCG TAB (VIT B-12) PO SCH (21:13)
[2017-05-27] MEDS: SENNA 8.6 MG TAB PO SCH (21:13)
[2017-05-28] MEDS: CHECK SCOPOLAMINE PATCH PLACEMENT SCH (00:30)
[2017-05-28] MEDS: ACETAMINOPHEN 500 MG TAB PO SCH ×3 (06:21→21:56)
[2017-05-28 07:03] VITALS: BP 113/61; PULSE 81; TEMP 37.1; O2SAT 93
--- NOTE | 2017-05-28 07:37 | PROGRESS NOTE ---
DATE: 05/28/2017 SUBJECTIVE: 82-year-old gentleman postop day 2 from a left knee replacement. He is doing pretty well. Pain is controlled. No chest pain or shortness of breath. Not feeling dizzy or lightheaded. OBJECTIVE: VITAL SIGNS: Temperature 36.8. Vital signs stable. PHYSICAL EXAMINATION: Examination of the left leg reveals the dressing to be in place. There is just a small bit of bloody drainage superiorly. Some moderate swelling. His calf is soft and supple. He can dorsiflex and plantarflex his foot appropriately. ASSESSMENT: 82-year-old gentleman postop day 2 from a left knee replacement, doing pretty well. Pain is reasonably well controlled. He is neurologically intact. Some moderate swelling which is to be expected. PLAN: 1. DVT prophylaxis including thigh-high TEDs, SCDs, and aspirin twice a day. 2. PT/OT. Weight bear as tolerated. Left total knee protocol. 3. Pain control, doing pretty well with current pain regimen. 4. Medical management. Cardiology is following. Seems be cardiac stable. 5. Disposition: He is looking to go to rehab for a brief rehab stay. We are pending [facility] approval and his 3-night stay.
[2017-05-28] MEDS: DOCUSATE SODIUM 100 MG CAP PO SCH ×2 (08:41→20:43)
[2017-05-28] MEDS: ASPIRIN 325 MG ECTAB PO SCH ×2 (08:41→20:43)
[2017-05-28] MEDS: PANTOprazole SOD 40 MG TAB PO SCH (08:41)
[2017-05-28] MEDS: MULTIVITAMIN TAB PO SCH (08:41)
[2017-05-28] MEDS: FERROUS GLUCONATE 324 MG TAB PO SCH ×3 (08:41→17:47)
[2017-05-28 15:56] VITALS: BP 130/53; PULSE 76; TEMP 37.6; O2SAT 92
--- NOTE | 2017-05-28 16:06 | Cardiology Follow-Up ---
Subjective Date of Service: May 28, 2017. Pt evaluation today including: conversation w/ patient, physical exam, lab review, review of inpatient medication list History of Present Illness This is a very pleasant 81-year-old gentleman with a history of atrial arrhythmias going back to around 2007, subsequently identified as atrial flutter. 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 We performed ablation of atrial flutter on 07/24/2011 at [place]. He did well until recently when he was identified as having atrial fibrillation, although in the interim some electrocardiograms are read as atrial fibrillation although typically he was in sinus rhythm with premature atrial beats. Due to his prior intraocular hemorrhage she was not started on anticoagulation by his choice. He was admitted following left knee replacement surgery. He seems to be a little bit confused today, but appears to be moving well and is speaking well but not always making sense. He is not having much knee discomfort. Social History Smoking Status: Former Smoker History of Alcohol Use: Yes (2-3 glasses of wine/day) Review of Systems Respiratory: No cough, No wheezing, No shortness of breath, No dyspnea on exertion Cardiac: No chest pain, No orthopnea, No PND, No edema, No palpitations Postoperative left knee pain as expected Medications Cardiovascular: Item Value Date Time Hydrochlorothiazide 25 mg 05/26/17 2100 (Hydrochlorothiazide QPM/PO 05/27/17 2112 Tab) Aspirin 325 mg 05/26/17 0900 (Ecotrin Tab) BID/PO 05/28/17 0841 Objective Vital Signs Past 12 Hours Date Time Temp Pulse Resp B/P (MAP) Pulse Ox O2 Delivery O2 Flow Rate FiO2 05/28/17 08:18 Room Air 05/28/17 07:03 37.1 81 18 113/61 (78) 93 Room Air Last Recorded Weight-Kilograms: 93.700 Intake & Output 8-Hour Column 05/28/17 05/28/17 05/29/17 15:59 23:59 07:59 Intake Total 275 ml Balance 275 ml 24-Hour Column 05/29/17 07:59 Intake Total 275 ml Balance 275 ml Physical Exam Constitutional: General Apperance: heathly-appearing Level of Distress: NAD Lungs: Respiratory effort: no dyspnea, good air movement Auscultation: breath sounds normal, no wheezing Cardiovascular: Heart Auscultation: no murmurs, no rubs, no gallops, irregular rate rhythm Peripheral Pulses: Bruits: none appreciated Extremities: no edema Assessment and Plan #1. Postop: He is doing well postop, some left knee discomfort, but he is not taking a lot of medications for it. #2. Atrial fibrillation: He remains in atrial fibrillation I believe, he is not on telemetry. His heart rate has improved somewhat from admission and seems to be in the normal range here. No need for further evaluation at the moment. I will plan on having him come into the office in 3 or 4 weeks and we will get a 24-hour monitor prior to that visit. I would avoid rate control medications ( calcium or beta blockers). Thank you for allowing me to participate in his care.
[2017-05-28] MEDS: TRAMADOL HCL 50 MG TAB PO PRN (16:25)
[2017-05-28 20:14] LABS: HEMATOCRIT 29.2 % (42-52); MEAN CELL VOLUME 95.7 fL (80-100); MEAN CORPUSCULAR HEMOGLOBIN 31.5 pg (25-34); MEAN CORPUSCULAR HGB CONC 32.9 g/dl (32-36); RED BLOOD COUNT 3.05 M/uL (4.7-6.1); WHITE BLOOD COUNT 7.41 K/uL (4.8-10.8)
[2017-05-28 20:16] LABS: MEAN PLATELET VOLUME 10.5 fL (7.4-10.4); PLATELET COUNT 77 K/uL (130-400)
[2017-05-28] MEDS: HYDROCHLOROTHIAZIDE 25 MG TAB PO SCH (20:42)
[2017-05-28] MEDS: SENNA 8.6 MG TAB PO SCH (20:43)
[2017-05-28] MEDS: CEROVITE ADV FORMULA TAB PO SCH (20:43)
[2017-05-28] MEDS: CYANOCOBALAMIN 500 MCG TAB (VIT B-12) PO SCH (20:43)
[2017-05-28 22:53] VITALS: BP 112/57; PULSE 78; TEMP 37.1; O2SAT 92
[2017-05-29] MEDS: ACETAMINOPHEN 500 MG TAB PO SCH ×2 (05:53→13:33)
[2017-05-29 07:28] VITALS: BP 95/61; PULSE 65; TEMP 37.2; O2SAT 91
[2017-05-29] MEDS: DOCUSATE SODIUM 100 MG CAP PO SCH (09:02)
[2017-05-29] MEDS: FERROUS GLUCONATE 324 MG TAB PO SCH ×2 (09:02→13:33)
[2017-05-29] MEDS: ASPIRIN 325 MG ECTAB PO SCH (09:02)
[2017-05-29] MEDS: PANTOprazole SOD 40 MG TAB PO SCH (09:02)
[2017-05-29] MEDS: MULTIVITAMIN TAB PO SCH (09:03)
[2017-05-29] MEDS: MAGNESIUM HYDROXIDE SUSP 30 ML UDC PO PRN (09:04)
--- NOTE | 2017-05-29 09:26 | PROGRESS NOTE ---
DATE: 05/29/2017 SUBJECTIVE: 82-year-old gentleman postop day 3 from a left knee replacement. He is doing well. Pain is controlled. Denies any chest pain or shortness of breath. Not feeling dizzy or lightheaded. OBJECTIVE: VITAL SIGNS: Temperature is 37.2. Vital signs stable. PHYSICAL EXAMINATION: GENERAL: Reveals a healthy pleasant elderly male. He is sitting up in bed and eating breakfast. Looks comfortable. EXTREMITIES: Examination of the left leg reveals the dressing to be in place. Just a little bit of bloody drainage on it. Some moderate swelling. He can dorsiflex and plantarflex his foot appropriately. He is neurologically intact. LABORATORY DATA: Hemoglobin 9.6. Hematocrit 29.2. His platelets are down at 77. ASSESSMENT: 82-year-old gentleman postop day 3 from a left knee replacement, doing pretty well. Pain is controlled. Cardiac exam has been stable. PLAN: 1. DVT prophylaxis including thigh-high TEDs, SCDs, and aspirin twice a day. 2. PT/OT. Weightbearing as tolerated. Left total knee protocol. 3. Pain control. Doing well with current pain regimen. 4. Disposition: We are hoping to discharge him to [facility] for a brief rehab stay.
--- NOTE | 2017-05-29 10:01 | Cardiology Follow-Up ---
Subjective Date of Service: May 29, 2017. Pt evaluation today including: conversation w/ patient, physical exam, lab review, review of studies, review of inpatient medication list, conversation w/ attending History of Present Illness This is a very pleasant 81-year-old gentleman with a history of atrial arrhythmias going back to around 2007, subsequently identified as atrial flutter. 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 We performed ablation of atrial flutter on 07/24/2011 at [place]. He did well until recently when he was identified as having atrial fibrillation, although in the interim some electrocardiograms are read as atrial fibrillation although typically he was in sinus rhythm with premature atrial beats. Due to his prior intraocular hemorrhage she was not started on anticoagulation by his choice. He was admitted following left knee replacement surgery. Today he feels well other than knee discomfort, he seems very alert this morning. No palpitations, no cardiovascular complaints. He does note lack of a bowel movement. Social History Smoking Status: Former Smoker History of Alcohol Use: Yes (2-3 glasses of wine/day) Review of Systems Respiratory: No cough, No wheezing, No shortness of breath, No dyspnea on exertion Cardiac: No chest pain, No orthopnea, No PND, No edema, No palpitations Postoperative left knee pain as expected Medications Cardiovascular: Item Value Date Time Hydrochlorothiazide 25 mg 05/26/17 2100 (Hydrochlorothiazide QPM/PO 05/28/172041 Tab) Aspirin 325 mg 05/26/17 0900 (Ecotrin Tab) BID/PO 05/29/17 0902 Objective Vital Signs Past 12 Hours Date Time Temp Pulse Resp B/P (MAP) Pulse Ox O2 Delivery O2 Flow Rate FiO2 05/29/17 08:31 Room Air 05/29/17 07:28 37.2 65 20 95/61 (72) 91 Room Air 05/29/17 00:30 Room Air 05/28/17 22:53 37.1 78 17 112/57 (75) 92 Room Air Last Recorded Weight-Kilograms: 93.700 Physical Exam Constitutional: General Apperance: heathly-appearing Level of Distress: NAD Lungs: Respiratory effort: no dyspnea, good air movement Auscultation: breath sounds normal, no wheezing Cardiovascular: Heart Auscultation: no murmurs, no rubs, no gallops, irregular rate rhythm Peripheral Pulses: Bruits: none appreciated Extremities: no edema Data Laboratory Results: Last 24 Hours Test 05/28/17 20:05 White Blood Count 7.41 K/uL Red Blood Count 3.05 M/uL Hemoglobin 9.6 g/dL Hematocrit 29.2 % Mean Corpuscular Volume 95.7 fL Mean Corpuscular Hemoglobin 31.5 pg Mean Corpuscular Hemoglobin Concent 32.9 g/dl RDW Standard Deviation 48.1 fL RDW Coefficient of Variation 13.8 % Platelet Count 77 K/uL Mean Platelet Volume 10.5 fL Assessment and Plan #1. Postop: He is doing well postop, expected postoperative knee discomfort.. #2. Atrial fibrillation: He remains in atrial fibrillation I believe, he is not on telemetry. His heart rate has improved somewhat from admission and seems to be in the normal range here. No need for further evaluation at the moment. I will plan on having him come into the office in 3 or 4 weeks and we will get a 24-hour monitor prior to that visit. I would avoid rate control medications ( calcium or beta blockers). From my standpoint he is stable for transfer to rehabilitation. Thank you for allowing me to participate in his care.
[2017-05-29 15:08] VITALS: BP 116/59; PULSE 70; TEMP 36.6; O2SAT 93
[2017-05-29 16:09] VITALS: BP 116/59; PULSE 70; TEMP 36.6; O2SAT 93
--- NOTE | 2017-06-02 14:59 | DISCHARGE SUMMARY ---
ADMITTING PHYSICIAN AND SURGEON: Dr. Garay. ADMITTING DIAGNOSIS: Left knee degenerative joint disease. SURGERY PERFORMED: Left total knee arthroplasty. SECONDARY DIAGNOSES: Intermittent atrial fibrillation, back pain, lumbar spondylosis and benign prostatic hypertrophy. CONSULTS: Dr. Larios, cardiology. HISTORY AND PHYSICAL EXAMINATION: Well documented in the patient's chart. HOSPITAL COURSE: The patient was admitted on 05/26/2017 and underwent total knee arthroplasty. He tolerated the procedure well. There were no complications. He was transferred to PACU postoperatively and later to the telemetry for further care and then on postop day 1, transferred to the orthopedic floor. He was given Ancef for antibiotic prophylaxis and ADRIANO stockings, SCDs and aspirin for DVT prophylaxis. Hemoglobin, hematocrit and vital signs were monitored during his hospital stay and remained stable. He developed some postoperative anemia, but did not require any blood transfusions. He was followed by Dr. Larios of cardiology service throughout his hospital stay. There were no complications. By postoperative day #3, he was tolerating a regular diet. Pain was controlled with oral pain medicine. He was participating in physical therapy and had no signs or symptoms of deep vein thrombosis. On postoperative day #3, he was discharged to rehab facility. He was given printed discharge instructions, including prescriptions for extra strength Tylenol, aspirin 325 mg b.i.d., and tramadol. Continue his home medicines. Continue physical therapy. He is to weightbear as tolerated and ADRIANO stockings. Follow up in 10-12 days or sooner if there are any problems or concerns. It also recommended by the cardiology service, Dr. Larios that he follows up in the office in 3-4 weeks as well.
== END 2017-05-29 16:35 | DRG 470 ==
LOC: C.ACU 05:07 → C.2T 06:35 → ENRESERV 09:29 → C.MSN 05-27 11:56
PROVIDERS: ADMIT Orthopaedic Surgery Sports Medicine; ATTEND Orthopaedic Surgery Sports Medicine
PROC: 0SRD0J9 Replacement of Left Knee Joint with Synthetic Substitute, Cemented, Open Approach (ICD-10-PCS; principal; 2017-05-26 07:00)
DX: M17.9 Osteoarthritis of knee, unspecified (principal); N40.0 Benign prostatic hyperplasia without lower urinary tract symptoms; Z96.651 Presence of right artificial knee joint

== ENCOUNTER → 2017-06-19 | Outpatient (CLI) | payer BC ==
[~2017-06-19] MED LIST changes: +ACET-24 PO; +ASPEC325 PO; +ULT50X PO
== END | disposition home or self-care (01) ==
LOC: C.LABSPEC 15:51
PROVIDERS: ATTEND Nurse Practitioner Family
DX: R31.0 Gross hematuria (principal)

== ENCOUNTER → 2017-06-29 | Outpatient (CLI) | payer BC | END | disposition home or self-care (01) | LOC: C.LAB 08:21 | PROVIDERS: ATTEND Nurse Practitioner Adult Health | DX: R39.13 Splitting of urinary stream (principal); R31.29 Other microscopic hematuria ==

== ENCOUNTER → 2017-09-17 | Outpatient (CLI) | payer BC | END | disposition home or self-care (01) | LOC: C.PATHSPEC 10:52 | PROVIDERS: ATTEND Urology | DX: R31.9 Hematuria, unspecified (principal) ==

== ENCOUNTER → 2018-05-12 | Day surgery (SDC) | payer BC ==
[2018-05-03 14:37] VITALS: Ht 177.8 cm; Wt 82.9 kg
[~2018-05-12] VITALS: Ht 177.8 cm; Wt 82.9 kg
[~2018-05-12] MED LIST changes: +500ML BSS 0.3ML EPI 1:1000PF IRRIG ONE; -ACET-24 PO; +ACETAMINOPHEN 325 MG TAB PO PRN; +AMVISC PLUS 0.8ML SYRINGE INT OCU ONE; -ASPEC325 PO; +ASPI81TA28 PO; +ATROPINE SULFATE 0.1 MG/ML 5ML SYR IV PRN; +BROM0.07; +BSS FLUSH ONE; +ENDOCOAT 0.85ML SYRINGE INT OCU ONE; +EpHEDrine SULFATE INJ 50 MG/ML AMP IV PRN; +EpINEphrine INJ 1MG/ML AMP 1 MG/ML AMP ONE; -FLUT0.15 NAE; +LACTATED RINGER'S 1000ML 500 ML IV SCH; +LIDOCAINE 4% OP SOLN DROP CHARGE ONE; +LIDOCAINE 4% OP SOLN DROP CHARGE OPR SCH; +LIDOCAINE HCL 1% MPF 2 ML VIAL ONE; +LIDOCAINE HCL 2% 2 ML VIAL (20MG/ML) ONE; +MIDAZOLAM HCL 1 MG/ML 2ML VIAL ONE; +MIX: 4ML BSS 1ML EPI 1:1000 PF TOP ONE; +MOXIFLOXACIN OPH SOLN PER DROP CHARGE ONE; +OFLO0.3S OP; +POVIDONE-IODINE OP SOLN 30 ML BTL ONE; +PRED1SUS3 OPL; +PROPARACAINE 0.5% OP SOLN PER DROP CHARGE OPR SCH; +PROPOFOL IV EMULSION 10 MG/ML 20 ML VIAL ONE; +TOBRAMYCIN/DEXAMETHASONE OPH OINT PER APPLN CHARGE ONE; -ULT50X PO; +VISIONBLUE 0.06% 0.5ML/SYR OP ONE
[2018-05-12] MEDS: PHENYLEPHRINE HCL 10% OP SOLN PER DROP CHARGE OPR SCH ×3 (09:40→09:50)
[2018-05-12] MEDS: TROPICAMIDE 1% OP SOLN PER DROP CHARGE OPR SCH ×3 (09:41→09:51)
[2018-05-12] MEDS: CYCLOPENTOLATE HCL 1% OP SOLN PER DROP CHARGE OPR SCH ×3 (09:42→09:52)
[2018-05-12] MEDS: MOXIFLOXACIN OPH SOLN PER DROP CHARGE OPR SCH ×3 (09:43→09:53)
--- NOTE | 2018-05-12 10:44 | [facility] Post Operative Brief Note ---
Immediate Operative Summary Operative Date May 12, 2018. Pre-Operative Diagnosis Right Eye Cataract Post-Operative Diagnosis same as preop Procedure(s) Performed Right Cataract Phacoemulsification With Intraocular Lens Implant Surgeon Dr. Ramirez Business Continuity Consultant Surgeon(s) none Estimated Blood Loss 0ml Findings Consistent with Post-Op Diagnosis Specimens none per surgeon Anesthesia Type MAC Complication(s) none Disposition Accompanied Pt To Recover: no Disposition:
--- NOTE | 2018-05-12 10:45 | [facility] Operative Report ---
Operative Report Date of Service May 12, 2018. Operative Report DATE OF OPERATION: 05/12/18 PREOPERATIVE DIAGNOSIS: Senile nuclear cataract, right eye POSTOPERATIVE DIAGNOSIS: Senile nuclear cataract, right eye PROCEDURE PERFORMED: Phacoemulsification with intraocular lens implantation, right eye SURGEON: Dr. Jose Ramirez ANESTHESIA: Topical with 1% intracameral lidocaine and monitored anesthesia care COMPLICATIONS: None DESCRIPTION OF PROCEDURE: After positively identifying the patient both verbally and by wristband in the preoperative area, the right eye was marked as the operative eye. The patient was then brought back to the operating room by the anesthesia and nursing staff where they were given a drop of Lidocaine and betadine into the operative eye. They were then sterilely prepped and draped in the standard fashion typical for ophthalmic surgery. Steri-strips were placed along the upper eyelids to keep the lashes back, and a lid speculum was placed into the operative eye. At this point, a documented time out was performed with members of the ophthalmology, nursing, and anesthesia staffs all agreeing upon the correct patient, correct location for surgery, correct procedure, and correct type and power of intraocular lens to be implanted. The microscope was then swung into position. First, a paracentesis wound was made using a sideport blade. Then, in sequence, 1% preservative-free lidocaine followed by Endocoat viscoelastic was injected into the anterior chamber. Next , the main incision was made with a keratome blade in triplanar fashion. A sharp cystotome was introduced into the eye and used to create a tear in the anterior capsule, which was directed into a continuous curvilinear capsulorrhexis using Utrata forceps. Hydrodissection was then performed with BSS on a flat-tip cannula. Next, the phacoemulsification handpiece was introduced into the eye and used to remove the nucleus in a [id number] fashion. This was done without complication and then the irrigation-aspiration handpiece was introduced into the eye and used to remove all remaining cortical and epinuclear material. Amvisc was then injected into the anterior chamber as well as into the capsular bag and using the lens injector system, an MX60 25.0 D lens, serial number [id number], and expiration date 11/2020 was injected into the capsular bag and rotated into the correct position. Next, the irrigation- aspiration handpiece was used to remove all remaining Amvisc. BSS was used to hydrate the main wound, and then BSS was injected into the paracentesis site to reach physiologic pressure and then the main wound was checked and found to be watertight. The patient was given drops of Vigamox and Tobradex ointment into the operative eye, and then the surrounding area was cleaned and dried. A clear plastic shield was placed over the eye and the patient was then sat up and taken from the operating room by the anesthesia staff having tolerated the procedure well and suffering no complications. DISPOSITION: The patient was returned to the recovery room in stable condition. I attest to the content of the Intraoperative Record and any orders documented therein. Any exceptions are noted below.
[2018-05-12 10:46] VITALS: TEMP 36.2
--- NOTE | 2018-05-12 10:46 | Discharge Instructions-SurgCtr ---
Discharge Instructions Date of Service May 12, 2018. Visit Reason for Visit: Cataract Right Eye Discharge Discharge Diagnosis / Problem: right cataract Discharge Goals Goal(s): Decrease discomfort, Improve function Activity Recommendations Activity Limitations: as noted below Anesthesia . Post Anesthesia Instructions: If you have had General Anesthesia or IV Sedation: * Do not drive today. * Resume driving when surgeon permits. * Do not make important decisions or sign legal documents today. * Call surgeon for: 1. Temperature elevations greater than 101 degrees F. 2. Uncontrollable pain. 3. Excessive bleeding. 4. Persistent nausea and vomiting. 5. Medication intolerance (nausea, vomiting or rash). * For nausea and vomiting use only clear liquids such as: tea, soda, bouillon until nausea subsides, then gradually increase diet as tolerated. * If you have any concerns or questions, call your surgeon's office. If physician is unavailable and it is an emergency, call 911 or go to the nearest emergency room. . Instructions / Follow-Up Instructions / Follow-Up ACTIVITY RECOMMENDATIONS: * Light activities. * You may walk outside, read, watch television. * You may notice redness on the white part of the eye and some blurry vision - this is normal. MEDICATIONS: Resume previous medications unless instructed otherwise by your surgeon. Start all eye drops at 1 pm today: * Eye drops (today): Prednisone - one drop in operative eye every 2 hours while awake Ofloxacin - one drop in operative eye every 2 hours while awake Prolensa - one drop in operative eye daily SPECIAL CARE INSTRUCTIONS: * Tape plastic shield over eye to sleep at night. Call your doctor at with any concerns or problems. FOLLOW UP VISIT: Follow-up with Dr Ramirez at [facility] as scheduled. Diet Recommendations Home Diet: no limitations Procedures Procedures Performed: Right Cataract Phacoemulsification With Intraocular Lens Implant Pending Studies Studies pending at discharge: no Medical Emergencies . Who to Call and When: Medical Emergencies: If at any time you feel your situation is an emergency, please call 911 immediately. . Non-Emergent Contact Non-Emergency issues call your: Surgeon . . "Provider Documentation" section prepared by Jose Ramirez. .
--- NOTE | 2018-05-12 11:01 | Anesthesia Progress Nt - [facility] ---
Anesthesia Post Op Note Date & Time May 12, 2018 at 11:01 Vital Signs Pain Intensity: 0 Vital Signs Past 12 Hours Date Time Temp Pulse Resp B/P (MAP) Pulse Ox O2 Delivery O2 Flow Rate FiO2 05/12/18 10:46 36.2 62 16 122/62 (82) 98 Room Air 05/12/18 09:31 36.5 74 18 165/70 (101) 95 Room Air Notes Mental Status: alert / awake / arousable, participated in evaluation Pt Amnestic to Procedure: Yes Nausea / Vomiting: adequately controlled Pain: adequately controlled Airway Patency, RR, SpO2: stable & adequate BP & HR: stable & adequate Hydration State: stable & adequate Anesthetic Complications: no major complications apparent
[2018-05-12 11:15] VITALS: BP 149/67; PULSE 73; O2SAT 95
== END | disposition home or self-care (01) ==
LOC: X.SURG 09:08
PROVIDERS: ATTEND Ophthalmology
DX: H25.11 Age-related nuclear cataract, right eye (principal); I10 Essential (primary) hypertension; I48.91 Unspecified atrial fibrillation; E78.00 Pure hypercholesterolemia, unspecified; Z96.659 Presence of unspecified artificial knee joint; Z88.2 Allergy status to sulfonamides

== ENCOUNTER 2019-02-25 13:02 | Inpatient (IN) ==
--- NOTE | 2019-02-25 13:33 | XRay Report ---
XR chest 1V portable CLINICAL HISTORY: Chest Pain dyspnea COMPARISON STUDY: 02/08/2019 FINDINGS: Moderate cardiomegaly. Developing components of what appears to be mild congestive failure. Small right pleural effusion. Interval improvement of the left pleural effusion. IMPRESSION: Cardiomegaly with findings of probable early congestive heart failure. There is small ri ght effusion. The above report was generated using voice recognition software. It may contain grammatical, syntax or spelling errors. Electronically signed by: Wellington Palomo M.D. 02/25/2019 1:32 PM
[2019-02-25 13:55] LABS: Basophils # (auto) 0.04 K/uL (0-0.2); Eosinophils # (auto) 0.22 K/uL (0-0.5); Eosinophils % (auto) 5.7 %; Hematocrit (blood only) 35.5 % (42-52); Hemoglobin 11.4 g/dL (14.0-18.0); Immature Granulocytes # (auto) 0.01 K/uL (0.00-0.02); Immature Granulocytes % (auto) 0.3 %; Lymphocytes # (auto) 1.03 K/uL (1.2-3.4); Lymphocytes % (auto) 26.5 %; Mean Corpuscular Hgb Conc 32.1 g/dL (32-36); Mean Corpuscular Volume 93.4 fL (80-100); Mean Platelet Volume 9.2 fL (7.4-10.4); Monocytes # (auto) 0.28 K/uL (0.11-0.59); Monocytes % (auto) 7.2 %; Neutrophils # (auto) 2.31 K/uL (1.4-6.5); Neutrophils % (auto) 59.3 %; Platelet Count 139 K/uL (130-400); RDW Coefficient of Variation 16.1 % (11.5-14.5); White Blood Count 3.89 K/uL (4.8-10.8)
[2019-02-25 14:08] LABS: INR 1.4 (0.9-1.1); Prothrombin Time 14.2 Seconds (9.0-12.0)
[2019-02-25 14:13] LABS: Albumin Level 3.1 gm/dl (3.4-5.0); BUN Creatinine Ratio 18.9 (10-20); Bilirubin Direct 1.4 mg/dl (0-0.2); Calcium 8.7 mg/dl (8.5-10.1); Creatinine Clr Calc Pharmacy 66.7 ml/min; Est GFR (African American) 88.8; Est GFR (Non-African American) 76.6; Magnesium 2.4 mg/dl (1.8-2.4); Potassium 3.1 mmol/L (3.5-5.1)
[2019-02-25 14:24] LABS: Albumin Globulin Ratio 0.8 (0.9-2); Bilirubin,Total 2.2 mg/dl (0.2-1); Globulin 3.7 gm/dl (2.5-4.0); Phosphorus 2.7 mg/dl (2.5-4.9); Total Protein 6.8 gm/dl (6.4-8.2); Troponin I 0.03 ng/ml (0-0.045)
[2019-02-25] MEDS ORDERED: POTASSIUM CHLORIDE 20 MEQ TABCR PO STA (14:30)
[2019-02-25] MEDS ORDERED: FUROSEMIDE 40 MG/4 ML VIAL IV STA (14:30)
--- NOTE | 2019-02-25 17:41 | History & Physical Report ---
Date of Service February 25, 2019 Assessment & Plan (1) Shortness of breath: Although the initial diagnosis coming to the ER was a decompensation of CHF, his last echo only about 2 months ago was more or less totally normal, and his lungs sound clear. His history is much more consistent with breathing being impinged upon by his growing abdominal girth with ascites. To get his breathing better more than likely were going to have to improve his abdominal ascites. For clarification purposes he does not currently appear to represent any type of acute or chronic CHF. (2) Cirrhosis of liver: In discussion with the patient, and review of outpatient notes, it appears to be uncertain etiology. This also seems to be a fairly new diagnosis. Given that gastroenterology who is managing him as an outpatient is also currently covering the hospital, and given that we will likely need to make med regimen changes in a more chronic way, I will do so in conjunction with gastroenterology given that they will be managing the med regimen in follow-up. For now will give trial to Lasix and spironolactone. (3) Ascites: Lasix and spironolactone as above. Will reattempt paracentesis tomorrow. Given that peritoneal fluid white count was 306, will cover with ceftriaxone at least pending culture and sensitivity. (4) Atrial fibrillation: Rate controlled, apparently cannot be anticoagulated due to GI bleeding issues. (5) Hypertension: Follow pressures. Diuretics as above will likely supersede his prior management. (6) DVT prophylaxis: Pharmacologic prophylaxis appears to at least have a relative contraindication given his prior GI bleeding history. Mechanical prophylaxis is certainly of dubious benefit and possible risk of skin breakdown given his chronic venous stasis changes. Will encourage ambulation as best as possible. (7) Discharge planning issues: He is a full code, although he notes if care would appear futile he would want to be withdrawn. [facility] is [facility]. Right now the goal would be to get him home at time of discharge. History of Present Illness Chief Complaint: Shortness of breath Primary Care Provider: Jose J Antoine MD Very pleasant 83-year-old male with a history of progressive shortness of breath weakness and lightheadedness. He was actually sent over to the ER from paracentesis due to dyspnea. He was given some Lasix and is sitting upright and feeling better overall with the acute breathing, but he notes that for the last several months he has had a gradual worsening of shortness of breath towards now very significant problem with exertion or with lying flat. Initially he jenna cribes it simply as in that, but then doubles back to notes that he wonders if it is related to his progressive increase in abdominal girth. When asking about if the 2 seem to correlate, he notes that as his abdomen is gotten bigger his shortness of breath is gotten worse, and when asking about how big his abdomen was 2 months ago, he notes it was significantly less than before, and notes that back around Pancho or 's he noted no swelling whatsoever. He has not had abdominal pain, fevers chills or sweats. He has gained to the better part of 20 pounds, which he notes is mostly attributable to abdominal and leg swelling. His leg swelling is worse. Fortunately he does still have an appetite. Allergies Allergy/AdvReac Type Severity Reaction Status Date / Time Bactrim Allergy Unknown GI UPSET, Verified 05/12/18 09:28 FEVER, HEADACHE Cipro Allergy Unknown GI SYMPTOMS Verified 05/03/18 14:37 merbromin Allergy Unknown ALLERGIC Verified 02/25/19 13:29 TO MERCUROCHROME, RASH ciprofloxacin AdvReac Unknown GI SYMPTOMS Verified 02/25/19 13:29 sulfamethoxazole AdvReac Unknown GI UPSET, Verified 02/25/19 13:29 FEVER, HEADACHE trimethoprim AdvReac Unknown GI UPSET, Verified 02/25/19 13:29 FEVER, HEADACHE Home Medications Home Medications Medication Instructions Recorded Confirmed Type ascorbic acid (vitamin C) [Vitamin 1 g PO UD 01/04/19 02/25/19 History C] cyanocobalamin (vitamin B-12) 1,000 mcg PO HS 01/04/19 02/25/19 History hydrochlorothiazide 25 mg PO QPM 01/04/19 02/25/19 History terazosin 10 mg PO HS 01/04/19 02/25/19 History acetaminophen [Tylenol Extra 1,000 mg PO Q6H PRN 02/25/19 02/25/19 History Strength] magnesium hydroxide [Milk of 15 ml PO DAILY PRN 02/25/19 02/25/19 History Magnesia] Past Med/Surg History Medical History Positive JESSICA (antinuclear antibody) Atrial fibrillation Cirrhosis of liver BPH (benign prostatic hyperplasia) Duodenal ulcer HX Sleep apnea MILD-NO DEVICE RX'D Arrhythmia HX Hypertension Pneumonia ON ANTIBIOTICS CURRENTLY X 5 DAYS THRU PCP Surgical History History of total knee replacement R/L History of colonoscopy History of esophagogastroduodenoscopy (EGD) Hx of transurethral resection of prostate History of cardiac radiofrequency ablation S/P Family History Father , Uncertain cause No problems noted. Mother , Uncertain cause No problems noted. Social History Preferred Language: Albanian Communication Ability: Effective Beliefs That Will Affect Care: None marital status: Current Living Situation: Spouse current occupational status: retired Feels Safe at Home: Yes Smoking Status: Former smoker Tobacco Type: pipe Second Hand Exposure: No Hx Alcohol Use: Yes Alcohol type: wine Hx Substance Use: No Review of Systems Review of Systems: All systems reviewed & are unremarkable except as noted in HPI & below Physical Exam Physical Exam: General he is awake and alert pleasant no distress. He is oriented x3. HEENT normocephalic atraumatic mucous membranes moist. Cardio sounds to be regular no rubs murmurs or gallops. Lungs are clear to auscultation bilaterally no rales rhonchi or wheeze with good effort, may be possibly mildly diminished bibasilar good effort. No accessory muscle use. Abdomen is tensely distended with a fluid wave nontender no erythema no guarding no rebound. Extremities show diffuse approximately 3+ pitting edema with chronic venous stasis changes, no calf tenderness. Other than the chronic venous stasis changes skin shows no rashes, no pallor, no icterus. Neuro shows cranial nerves II through XII be grossly intact gross motor and sensory are intact. Muscular skeletal exam shows no gross lesions. Mental status is good recent and remote recall normal mood and affect good judgment and insight. Chest x-ray is a somewhat poor film with may be possibly mild congestive type changes, but certainly not overwhelming. EKG without acute ischemia. Labs noted. Results & Data Vital Signs (Past 12 Hours) Vital Signs Temp Pulse Pulse Resp BP BP Pulse Ox 02/25/19 17:01 77 16 117/89 02/25/19 16:31 79 18 119/70 97 02/25/19 16:00 68 16 138/75 97 02/25/19 15:30 75 16 139/80 96 02/25/19 15:01 19 116/62 96 02/25/19 14:30 77 19 130/74 96 02/25/19 14:00 67 24 114/64 96 02/25/19 13:40 95 02/25/19 13:36 64 24 121/69 96 02/25/19 13:11 36.4 C L 91 H 22 129/61 91
[2019-02-25] MEDS ORDERED: ONDANSETRON INJ 2 MG/ML 2 ML VIAL IV PRN (18:07)
[2019-02-25] MEDS ORDERED: ALUMINUM/MAGNESIUM SUSP 30 ML UDC PO PRN (18:07)
[2019-02-25] MEDS ORDERED: MAGNESIUM HYDROXIDE SUSP 30 ML UDC PO PRN ×2 (18:07)
[2019-02-25] MEDS ORDERED: POLYETHYLENE (MIRALAX) 17 GM PACK PO PRN (18:07)
[2019-02-25] MEDS: FUROSEMIDE 40 MG in SYRINGE 0 ML IV SCH (18:37)
[2019-02-25] MEDS: ASCORBIC ACID 500 MG TAB PO SCH (18:38)
--- NOTE | 2019-02-25 18:41 | Emergency Department Note ---
Entered by Kristine Carvalho acting as a scribe for History of Present Illness General Chief complaint: Shortness of Breath/Dyspnea Time Seen by Provider: 02/25/19 13:18 Source: patient Mode of arrival: ambulatory Limitations: no limitations History of Present Illness Provider complaint: Shortness of breath Onset (ago): month(s) (about a month ago) Location: chest Radiation: non-radiation Pain Consistency: + other (worsening) Quality: + other (shortness of breath) Exacerbated By: + movement (transitioning from sitting to lying and vice versa) Associated symptoms: + weakness (of the legs) and + other (Additional symptoms: ascites, leg swelling) The patient is an 83 year old male with a history of cirrhosis of the liver, BPH, hypertension, arrhythmia, a duodenal ulcer, sleep apnea, and a knee surgery who presents to the Emergency Room with complaints of worsening shortness of breath starting about a month ago. The patient reports that his shortness of breath worsens when he transitions from sitting upright to lying down and vice versa. Per , the patient has ascites and that an insufficient amount of fluid was able to be removed by abdominal paracentesis, so the patient was instructed to report to the ED. She states that the patient's legs have also been swelling for over 6 weeks and that his legs are weak. The patient reports that he is on Hydrochlorothiazide but no water pills. He notes that his PCP is Dr. De La Cruz. Home Medications Home Medications Medication Instructions Recorded Confirmed Type ascorbic acid (vitamin C) [Vitamin 1 g PO UD 01/04/19 02/25/19 History C] cyanocobalamin (vitamin B-12) 1,000 mcg PO HS 01/04/19 02/25/19 History hydrochlorothiazide 25 mg PO QPM 01/04/19 02/25/19 History terazosin 10 mg PO HS 01/04/19 02/25/19 History acetaminophen [Tylenol Extra 1,000 mg PO Q6H PRN 02/25/19 02/25/19 History Strength] magnesium hydroxide [Milk of 15 ml PO DAILY PRN 02/25/19 02/25/19 History Magnesia] Allergies Allergy/AdvReac Type Severity Reaction Status Date / Time Bactrim Allergy Unknown GI UPSET, Verified 05/12/18 09:28 FEVER, HEADACHE Cipro Allergy Unknown GI SYMPTOMS Verified 05/03/18 14:37 merbromin Allergy Unknown ALLERGIC Verified 02/25/19 13:29 TO MERCUROCHROME, RASH ciprofloxacin AdvReac Unknown GI SYMPTOMS Verified 02/25/19 13:29 sulfamethoxazole AdvReac Unknown GI UPSET, Verified 02/25/19 13:29 FEVER, HEADACHE trimethoprim AdvReac Unknown GI UPSET, Verified 02/25/19 13:29 FEVER, HEADACHE Past Med/Surg History Medical History Positive JESSICA (antinuclear antibody) Atrial fibrillation Cirrhosis of liver BPH (benign prostatic hyperplasia) Duodenal ulcer HX Sleep apnea MILD-NO DEVICE RX'D Arrhythmia HX Hypertension Pneumonia ON ANTIBIOTICS CURRENTLY X 5 DAYS THRU PCP Surgical History History of total knee replacement R/L History of colonoscopy History of esophagogastroduodenoscopy (EGD) Hx of transurethral resection of prostate History of cardiac radiofrequency ablation S/P Family History Father , Uncertain cause No problems noted. Mother , Uncertain cause No problems noted. 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 and A total of 10 systems reviewed and were otherwise negative Physical Exam Vital Signs Vital Signs - 24 hr 02/25/19 13:11 02/25/19 13:36 02/25/19 13:40 Temperature 36.4 C L Temperature Source Oral Sepsis Recent Fever Within 48 Hours No Sepsis New/Unexplained Change in Mental Status No Sepsis Action Taken by Nursing No Action Required Pulse Rate 91 H 64 Pulse Rate [Left] Pulse Rate from SpO2 Sensor 67 Respiratory Rate 22 24 Respiratory Effort / Characteristics Spontaneous Blood Pressure 129/61 121/69 Blood Pressure [Left Arm] Blood Pressure Mean 83 86 Blood Pressure Mean [Left Arm] Blood Pressure Position Lying Blood Pressure Position [Left Arm] Pulse Oximetry 91 96 95 Oxygen Delivery Method Nasal Cannula Nasal Cannula Nasal Cannula Oxygen Flow Rate 3 3 3 02/25/19 14:00 02/25/19 14:30 02/25/19 15:01 Temperature Temperature Source Sepsis Recent Fever Within 48 Hours Sepsis New/Unexplained Change in Mental Status Sepsis Action Taken by Nursing Pulse Rate 77 Pulse Rate [Left] 67 Pulse Rate from SpO2 Sensor 75 69 Respiratory Rate 24 19 19 Respiratory Effort / Characteristics Blood Pressure 130/74 116/62 Blood Pressure [Left Arm] 114/64 Blood Pressure Mean 92 80 Blood Pressure Mean [Left Arm] 80 Blood Pressure Position Blood Pressure Position [Left Arm] Lying Pulse Oximetry 96 96 96 Oxygen Delivery Method Nasal Cannula Oxygen Flow Rate 2.5 02/25/19 15:30 02/25/19 16:00 02/25/19 16:31 Temperature Temperature Source Sepsis Recent Fever Within 48 Hours Sepsis New/Unexplained Change in Mental Status Sepsis Action Taken by Nursing Pulse Rate 75 68 79 Pulse Rate [Left] Pulse Rate from SpO2 Sensor 73 70 74 Respiratory Rate 16 16 18 Respiratory Effort / Characteristics Blood Pressure 139/80 138/75 119/70 Blood Pressure [Left Arm] Blood Pressure Mean 99 96 86 Blood Pressure Mean [Left Arm] Blood Pressure Position Blood Pressure Position [Left Arm] Pulse Oximetry 96 97 97 Oxygen Delivery Method Oxygen Flow Rate GENERAL: Awake, alert, mildly dyspneic-appearing, in no distress HENT: Normocephalic, atraumatic. Oropharynx unremarkable. EYES: Normal conjunctiva. Sclera non-icteric. NECK: Supple. No nuchal rigidity. FROM. No JVD. RESPIRATORY: Diminished breath sounds throughout. CARDIAC: Regular rate, normal rhythm. Extremities warm and well perfused. Pulses equal. ABDOMEN: Soft. No tenderness to palpation. No rebound or guarding. No masses. Distended abdomen with anasarca. RECTAL: Deferred. MUSCULOSKELETAL: Chest examination reveals no tenderness. The back is symmetrical on inspection without obvious abnormality. There is no CVA tenderness to palpation. No joint edema. LOWER EXTREMITIES: Calves are equal size bilaterally and non-tender. No discoloration. 3+ bilateral pitting edema. NEURO: Normal sensorium. No sensory or motor deficits noted. SKIN: No rash or jaundice noted. Course 1346: The patient was evaluated in room B7, and a complete history and physical examination were performed. 1515: I performed an bedside ultrasound at this time. 1626: I reviewed the patient's case with Dr. Cheung - Hospitalist, Denise Quezada. Dr. Cheung will evaluate the patient for further management. Consultations Consultation #1: I reviewed the patient's case with Dr. Cheung - Hospitalist, Denise Quezada. Dr. Cheung will evaluate the patient for further management. Time: 16:26 Administered Medications Ascorbic Acid (Vitamin C) 1,000 mg PO DAILY TONY Stop: 03/27/19 18:06 Last Admin: 02/25/19 18:38 Dose: 1,000 mg Documented by: [id number] Cyanocobalamin (Vitamin B-12) 1,000 mcg PO HS TONY Stop: 03/27/19 20:59 Last Admin: 02/25/19 20:21 Dose: 1,000 mcg Documented by: [id number] Ceftriaxone Sodium 2,000 mg/ (Dextrose) 50 mls @ 100 mls/hr IV Q24H TONY; Protoc ol Stop: 03/07/19 18:44 Last Infusion: 02/25/19 20:11 Dose: 0 mls/hr Documented by: [id number] Admin: 02/25/19 19:33 Dose: 100 mls/hr Documented by: [id number] Furosemide 40 mg/ Syringe 4 mls @ 4 mls/min IV [id number] TONY Stop: 03/27/19 18:06 Last Admin: 02/25/19 18:37 Dose: 4 mls/min Documented by: [id number] Terazosin HCl (Hytrin) 10 mg PO HS TONY Stop: 03/27/19 20:59 Last Admin: 02/25/19 20:20 Dose: 10 mg Documented by: [id number] Discontinued Medications Furosemide (Lasix) 20 mg IV NOW STA Stop: 02/25/19 14:31 Last Admin: 02/25/19 14:48 Dose: 20 mg Documented by: [id number] Potassium Chloride (Klor-Con M20) 40 meq PO NOW STA Stop: 02/25/19 14:31 Last Admin: 02/25/19 14:48 Dose: 40 meq Documented by: [id number] Medical Decision Making Differential Diagnosis Differential diagnosis: Etiologies such as infections, reactive airway disease, pneumonia, pneumothorax, COPD, CHF, cardiac ischemia, pulmonary embolism, musculoskeletal, gastrointestin al, as well as others were entertained. Medical Records Attestation: I reviewed the patient's medical records. Home Medications Current Medication List: was personally reviewed by me Laboratory Data Attestation: I reviewed the patient's lab results. Result diagrams: 02/25/19 13:39 02/25/19 13:39 Lab Results 02/25/19 02/25/19 02/25/19 Range/Units 13:39 13:39 13:39 WBC 3.89 L (4.8-10.8) K/uL RBC 3.80 L (4.7-6.1) M/uL Hgb 11.4 L (14.0-18.0) g/dL Hct 35.5 L (42-52) % MCV 93.4 (80-100) fL MCH 30.0 (25-34) pg MCHC 32.1 (32-36) g/dL RDW Std Deviation 55.0 H (36.4-46.3) fL RDW Coeff of Chel 16.1 H (11.5-14.5) % Plt Count 139 (130-400) K/uL MPV 9.2 (7.4-10.4) fL Immature Gran % (Auto) 0.3 % Neut % (Auto) 59.3 % Lymph % (Auto) 26.5 % Bandera % (Auto) 7.2 % Eos % (Auto) 5.7 % Baso % (Auto) 1.0 % Immature Gran # (Auto) 0.01 (0.00-0.02) K/uL Neut # (Auto) 2.31 (1.4-6.5) K/uL Lymph # (Auto) 1.03 L (1.2-3.4) K/uL Bandera # (Auto) 0.28 (0.11-0.59) K/uL Eos # (Auto) 0.22 (0-0.5) K/uL Baso # (Auto) 0.04 (0-0.2) K/uL PT 14.2 H (9.0-12.0) Seconds INR 1.4 H (0.9-1.1) Sodium 140 (136-145) mmol/L Potassium 3.1 L (3.5-5.1) mmol/L Chloride 100 (98-107) mmol/L Carbon Dioxide 33 H (21-32) mmol/L Anion Gap 7.0 (3-11) BUN 17 (7-18) mg/dl Creatinine 0.91 (0.6-1.4) mg/dl Est Cr Clr Drug Dosing 66.7 ml/min Est GFR ( Amer) 88.8 Est GFR (Non-Af Amer) 76.6 BUN/Creatinine Ratio 18.9 (10-20) Glucose 122 H (70-99) mg/dl Calcium 8.7 (8.5-10.1) mg/dl Phosphorus 2.7 (2.5-4.9) mg/dl Magnesium 2.4 (1.8-2.4) mg/dl Total Bilirubin 2.2 H (0.2-1) mg/dl Direct Bilirubin 1.4 H (0-0.2) mg/dl AST 34 (15-37) U/L ALT 22 (12-78) U/L Alkaline Phosphatase 206 H (45-117) U/L Troponin I 0.030 (0-0.045) ng/ml NT-Pro-B Natriuret Pep 1158 (0-1800) pg/ml Total Protein 6.8 (6.4-8.2) gm/dl Albumin 3.1 L (3.4-5.0) gm/dl Globulin 3.7 (2.5-4.0) gm/dl Albumin/Globulin Ratio 0.8 L (0.9-2) Lipase 125 (73-393) U/L Imaging Data Radiologist's Impression: Radiology results as stated below per my review and the radiologist's interpretation: XR chest 1V portable CLINICAL HISTORY: Chest Pain dyspnea COMPARISON STUDY: 02/08/2019 FINDINGS: Moderate cardiomegaly. Developing components of what appears to be mild congestive failure. Small right pleural effusion. Interval improvement of the left pleural effusion. IMPRESSION: Cardiomegaly with findings of probable early congestive heart failure. There is small right effusion. The above report was generated using voice recognition software. It may contain grammatical, syntax or spelling errors. Electronically signed by: Wellington Palomo M.D. 02/25/2019 1:32 PM ECG Data Attestation: I personally reviewed and interpreted this ECG as follows: Indication: SOB/dyspnea Rate (beats per minute): 74 Rhythm: atrial fibrillation Findings: + other (abberantly conducted complexes, nonspecific T wave abnormality), + RBBB and + left axis deviation Comparison ECG Date: from (05/26/17) Change: no significant change Blood Pressure Blood Pressure Findings: Normal blood pressure MDM Narrative The patient is a pleasant 83 y/o gentleman with a pmhx of BOBBY cirrhosis with abdominal ascites, afib not on AC who presents to the emergency department with worsening sob and volume overload over the past week per HPI. Patient was at [facility] having outpatient paracentesis but became increasing SOB and hypoxic and so was sent to ED for evaluation. Per report, only 60cc of fluid was obtained on paracentesis. On arrival the patient is in NAD, AFVSS. Patient appears fluid overloaded with mild JVD, diminished breathe sounds, distended abdomen with anasarca and 3+ BLE pitting edema. Limited bedside US demonstrates moderate- large ascites. Plethoric IVC. No qualitative overt reduction in EF. No overt pericardial effusion. CXR demostrates mild CHF. EKG demonstrate afib similar to prior. WBC 3.8 and H/H with prior range of values. INR 1.4 without recent values for comparison in our system. Potassium 3.1 with repletion provided. Chemistry without acidosis. Totatl bilirubin 2.2 similar to prior. Direct bilirubin 1.4 without recent values for comparison. Tropon 0.03 wnl. BNP 1158. Patient's symptoms likely related to volume overload in the setting of the pateint's cirrhosis. Likely will need repeat attempt of therapeutic paracentesis. Will diurese for now. Peritoneal WBC 306 with PMN 11% from this morning. Low suspicion for SBP at this time. Will defer abx to admitting team. Case d/w Dr. Hurst, [facility] [place] hospitalist, who will evaluate the patient for admission. Impression & Plan Fluid overload Discharge Plan Visit Data *Final* Discharge Date/Time: 02/25/19 17:30 Chief Complaint: Shortness of Breath/Dyspnea ED Provider: Josesito Weber Discharge Problem: Fluid overload Patient Disposition: Admitted As Inpatient Discharge Instructions Interventions: ED Discharge Assessment Last Done: 02/25/19 17:30 Discharge Problem: Fluid overload Qualifiers: Hypervolemia type: unspecified Qualified Code(s): E87.70 - Fluid overload, unspecified The scribe's documentation has been prepared under my direction and personally reviewed by me in its entirety. I confirm that the note above accurately reflects all work, treatment, procedures, and medical decision making performed by me.
[2019-02-25] MEDS ORDERED: cefTRIAXone SODIUM 2,000 MG in DEXTROSE 5% 50 ML IV SCH (18:45)
[2019-02-25] MEDS: TERAZOSIN HCL 5 MG CAP PO SCH (20:20)
[2019-02-25] MEDS: CYANOCOBALAMIN 500 MCG TABLET (VITAMIN B-12) PO SCH (20:21)
[2019-02-26] MEDS: FUROSEMIDE 40 MG in SYRINGE 0 ML IV SCH ×2 (08:04→17:06)
[2019-02-26] MEDS: ASCORBIC ACID 500 MG TAB PO SCH (08:04)
[2019-02-26] MEDS: SPIRONOLACTONE 25 MG TAB PO SCH (08:04)
[2019-02-26 08:17] LABS: Calcium 8.6 mg/dl (8.5-10.1); Creatinine Clr Calc Pharmacy 62.3 ml/min; Est GFR (African American) 83.2; Est GFR (Non-African American) 71.8; Potassium 3.1 mmol/L (3.5-5.1)
[2019-02-26] MEDS ORDERED: POTASSIUM CHLORIDE 20 MEQ TABCR PO STA (09:50)
[2019-02-26] MEDS ORDERED: IOVERSOL 100ml IV PRN (10:32)
--- NOTE | 2019-02-26 10:53 | CT Scan Report ---
CT abd pelvis IV con only CLINICAL HISTORY: cirrhosis with ascites COMPARISON STUDY: 12/07/2018 TECHNIQUE: The patient was scanned in a dynamic helical fashion during intravenous administration of 93 cc of Optiray 320. A dose lowering technique was utilized adhering to the principles of ALARA. CT DOSE: 526.04 mGy.cm FINDINGS: Lower chest: There are smaller moderate bilateral pleural effusions. There are basilar atelectatic ch anges. Liver: The liver has a cirrhotic morphology. No space-occupying hepatic masses are visualized. There is suspected hepatic steatosis. There is a stable 12 mm hypervascular focus within the left lobe the liver. This appears represent a small vascular shunt. Gallbladder: No calculi are visualized. Pericholecystic fluid is likely secondary to ascites Spleen: Normal in size and attenuation. Pancreas: Unremarkable. Adrenal glands: Unremarkable. Kidneys: There is symmetric renal cortical enhancement. The kidneys are normal in size without hydron ephrosis. Bowel: There are no transition zones indicate bowel obstruction. There is colonic diverticulosis. The re are no acute peridiverticular inflammatory changes. There are no findings to indicate acute append icitis. Peritoneum: There is low volume ascites. Vasculature: The abdominal aorta is normal in course and caliber. Adenopathy: There are mildly enlarged para-aortic and iliac lymph nodes similar to the prior study. Pelvic viscera: There is stable prostamegaly Skeletal structures: No destructive osseous lesions are seen. IMPRESSION: 1. Small to moderate bilateral pleural effusions with basilar atelectatic change 2. Mild hepatic steatosis. Suspected hepatic cirrhosis. The portal veins appear patent. 3. Stable 12 mm hypervascular focus within the left lobe of the liver. Although nonspecific, the appe arance is suggestive of a small shunt/vascular malformation 4. Diverticulosis. No evidence of acute diverticulitis 5. Low volume ascites 6. Generalized body wall edema 7. Prostatomegaly 8. Stable mild retroperitoneal lymphadenopathy Electronically signed by: Shahriar Dumont M.D. 02/26/2019 10:51 AM
[2019-02-26] MEDS ORDERED: ALBUT/IPRATROP 3MG/0.5MG NEB 3 ML VIAL NEB STA (11:02)
[2019-02-26] MEDS: POLYETHYLENE (MIRALAX) 17 GM PACK PO SCH (11:34)
[2019-02-26] MEDS: DOCUSATE SODIUM 100 MG CAP PO SCH ×2 (11:34→20:17)
--- NOTE | 2019-02-26 11:48 | Family Medicine Progress Note ---
Date of Service February 26, 2019 Assessment & Plan (1) Ascites: In the setting of possible liver cirrhosis of uncertain etiology vs. possible CHF CT abdomen w/t IV contrast: Mild hepatic steatosis. Suspected hepatic cirrhosis. Low volume ascites. Portal veins patent. Stable 12 mm hypervascular focus within the left lobe of the liver - suggestive of a small shunt/vascular malformations. Diverticulosis. L Generalized body wall edema. Stable mild retroperitoneal lymphadenopathy. Prostatomegaly LFT: Total bili 2.2 direct bili 1.4 albumin 2.1; INR 1.4 not anticoagulated Started on trial of Lasix 40 mg IV twice daily and spironolactone 25 mg every morning GI consulted (2) Shortness of breath: Possibly from CHF decompensation vs. increased abdominal pressure from constipation versus small ascites versus liver shunt/vascular malformation which could also cause shortness of breath vs. acute respiratory infection in the setting of developing cough Repeat echo pending Lungs clear on exam but pt has JVD and LE edema CT abdomen: Small to moderate bilateral pleural effusions with basilar atelectatic change, Low volume ascites On supplemental oxygen, 3 L now Trial DuoNeb treatment x 1 given diminished breath sounds and wheezing on exam in the setting of developing cough (3) Atrial fibrillation: Rate controlled at this time History of GI bleed not on anticoagulation (4) Cirrhosis of liver: As above (5) BPH (benign prostatic hyperplasia): On home Terazosin (6) Hypertension: On home Terazosin Also on diuretics Lasix 40 mg IV twice daily for ascites which should help with blood pressure (7) DVT prophylaxis: Encourage ambulation, history of GI bleed on anticoagulation, skin breakdown associated with venous stasis skin changes as such SCDs avoided especially given minimal benefit (8) Constipation: Mag citrate 300 mL x 1 Colace and MiraLAX scheduled (9) Vascular malformation of liver: Abdominal CT 12 mm hypervascular focus in liver concerning for small shunt versus vascular malformation Per GI could also explain shortness of breath if large enough and needs addressed at tertiary center by IR if other workup negative Supervising Physician Co-Signing Physician Notes I personally examined the patient and verified all dupree points of history and exam, discussed case, and agree with decision making with Dr Jin. Feeling about the same. Case discussed with GI. Input greatly appreciated. CT and change in diagnostic approach expressed to patient, he expressed good understanding and asked good questions. He also expressed appreciation of care. Vitals noted, in general he is awake and alert pleasant no distress. HEENT normal cephalic atraumatic mucous members are moist. Breathing is unlabored no accessory muscle use, good effort. Abdomen is still protuberant. Extremities still with chronic venous stasis changes and significant edema. Shortness of breathquite surprisingly he does not have much of any ascites of significance. He does however have on CT a lot of body wall edema, and the whole situation begs the question of possibly a right heart failure situation leading to his cirrhosis from backflow. Although he had an echo only about 2 months ago that showed moderate tricuspid regurgitation, should the tricuspid regurgitation or any pulmonary hypertension have worsened over the last few months, that certainly could explain this well. Repeat echo has been ordered and is pending. Depending on the findings, or how well the right side of the heart is able to be viewed, it is possible that something along the lines of a right heart cath may need to be considered, but hopefully we will be able to get a good diagnosis between echocardiogram and clinical findings. Follow response to diuresis, certainly any abrupt increase in his BUN/creatinine or abrupt drop in blood pressure with diuresis would corroborate a right heart failure kind of picture. We will also check a UA to look for any significant proteinuria, and nephrotic syndrome seems far less likely, but certainly on the differential. At any rate it appears that his cirrhosis is really more secondary to his underlying diagnosis rather than central to it. otherwise as above Subjective This AM patient reports some improvement in shortness of breath. Reports feeling constipated and not having bowel movement in 3 days and did not rest well last night. denies any fever chills chest pain abdominal pain nausea vo miting dysuria Review of Systems Review of Systems: As per HPI Physical Exam Physical Exam: General: Pleasant in no acute distress CV: Irregular rhythm regular rate no m/r/g appreciated, significant JVD (while supine rises from supraclavicular region to submandibular region on abdominal pressure) Pulm: Diminished breath sounds with diffuse mild wheezing no crackles appreciated, equal breath sounds bilaterally Abdomen: +BS, distended, tympanic with shifting dullness, nontender to palpation all quadrants LE: 1+ lower extremity edema, no calf tenderness, chronic venous skin changes bilaterally Results & Data Vital Signs (Past 12 Hours) Vital Signs Temp Pulse Resp BP Pulse Ox 02/26/19 11:30 36.4 C L 85 19 121/63 97 02/26/19 11:18 84 18 96 02/26/19 07:41 36.5 C 77 19 124/65 97 Laboratory Results Abnormal lab results 02/25/19 02/25/19 02/25/19 Range/Units 13:39 13:39 13:39 WBC 3.89 L (4.8-10.8) K/uL RBC 3.80 L (4.7-6.1) M/uL Hgb 11.4 L (14.0-18.0) g/dL Hct 35.5 L (42-52) % RDW Std Deviation 55.0 H (36.4-46.3) fL RDW Coeff of Chel 16.1 H (11.5-14.5) % Lymph # (Auto) 1.03 L (1.2-3.4) K/uL PT 14.2 H (9.0-12.0) Seconds INR 1.4 H (0.9-1.1) Potassium 3.1 L (3.5-5.1) mmol/L Carbon Dioxide 33 H (21-32) mmol/L Glucose 122 H (70-99) mg/dl Total Bilirubin 2.2 H (0.2-1) mg/dl Direct Bilirubin 1.4 H (0-0.2) mg/dl Alkaline Phosphatase 206 H (45-117) U/L Albumin 3.1 L (3.4-5.0) gm/dl Albumin/Globulin Ratio 0.8 L (0.9-2) 02/26/19 Range/Units 07:34 WBC (4.8-10.8) K/uL RBC (4.7-6.1) M/uL Hgb (14.0-18.0) g/dL Hct (42-52) % RDW Std Deviation (36.4-46.3) fL RDW Coeff of Chel (11.5-14.5) % Lymph # (Auto) (1.2-3.4) K/uL PT (9.0-12.0) Seconds INR (0.9-1.1) Potassium 3.1 L (3.5-5.1) mmol/L Carbon Dioxide 35 H (21-32) mmol/L Glucose (70-99) mg/dl Total Bilirubin (0.2-1) mg/dl Direct Bilirubin (0-0.2) mg/dl Alkaline Phosphatase (45-117) U/L Albumin (3.4-5.0) gm/dl Albumin/Globulin Ratio (0.9-2) Diagnostic Findings CT abd pelvis IV con only CLINICAL HISTORY: cirrhosis with ascites COMPARISON STUDY: 12/07/2018 TECHNIQUE: The patient was scanned in a dynamic helical fashion during intravenous administration of 93 cc of Optiray 320. A dose lowering technique was utilized adhering to the principles of ALARA. CT DOSE: 526.04 mGy.cm FINDINGS: Lower chest: There are smaller moderate bilateral pleural effusions. There are basilar atelectatic changes. Liver: The liver has a cirrhotic morphology. No space-occupying hepatic masses are visualized. There is suspected hepatic steatosis. There is a stable 12 mm hypervascular focus within the left lobe the liver. This appears represent a small vascular shunt. Gallbladder: No calculi are visualized. Pericholecystic fluid is likely secondary to ascites Spleen: Normal in size and attenuation. Pancreas: Unremarkable. Adrenal glands: Unremarkable. Kidneys: There is symmetric renal cortical enhancement. The kidneys are normal in size without hydronephrosis. Bowel: There are no transition zones indicate bowel obstruction. There is colonic diverticulosis. There are no acute peridiverticular inflammatory changes. There are no findings to indicate acute appendicitis. Peritoneum: There is low volume ascites. Vasculature: The abdominal aorta is normal in course and caliber. Adenopathy: There are mildly enlarged para-aortic and iliac lymph nodes similar to the prior study. Pelvic viscera: There is stable prostamegaly Skeletal structures: No destructive osseous lesions are seen. IMPRESSION: 1. Small to moderate bilateral pleural effusions with basilar atelectatic change 2. Mild hepatic steatosis. Suspected hepatic cirrhosis. The portal veins appear patent. 3. Stable 12 mm hypervascular focus within the left lobe of the liver. Although nonspecific, the appearance is suggestive of a small shunt/vascular malformation 4. Diverticulosis. No evidence of acute diverticulitis 5. Low volume ascites 6. Generalized body wall edema 7. Prostatomegaly 8. Stable mild retroperitoneal lymphadenopathy Medications Administered Current Inpatient Medications Al Hydrox/Mg Hydrox/Simethicone (Maalox) 30 ml PO Q6H PRN PRN Reason: Dyspepsia Stop: 03/27/19 18:06 Ascorbic Acid (Vitamin C) 1,000 mg PO DAILY TONY Stop: 03/27/19 18:06 Last Admin: 02/26/19 08:04 Dose: 1,000 mg Documented by: Cyanocobalamin (Vitamin B-12) 1,000 mcg PO HS [facility] Stop: 03/27/19 20:59 Last Admin: 02/25/19 20:21 Dose: 1,000 mcg Documented by: Docusate Sodium (Colace) 100 mg PO BID TONY Stop: 03/28/19 11:14 Last Admin: 02/26/19 11:34 Dose: 100 mg Documented by: Furosemide 40 mg/ Syringe 4 mls @ 4 mls/min IV BID17 TONY Stop: 03/27/19 18:06 Last Admin: 02/26/19 08:04 Dose: 4 mls/min Documented by: Ioversol (Optiray 320 100ml) 93 ml IV ONCE PRN PRN Reason: Interaction Checking Stop: 03/02/19 10:31 Last Admin: 02/26/19 10:33 Dose: 93 ml Documented by: Magnesium Hydroxide (Milk Of Magnesia) 30 ml PO Q6H PRN PRN Reason: Constipation Stop: 03/27/19 18:06 Last Admin: 02/26/19 10:48 Dose: 30 ml Documented by: Ondansetron HCl (Zofran) 4 mg IV Q6H PRN PRN Reason: Nausea Stop: 03/27/19 18:06 Polyethylene Glycol (Miralax Powder Packet) 17 gm PO DAILY PRN PRN Reason: Constipation Stop: 03/27/19 18:06 Last Admin: 02/26/19 04:48 Dose: 17 gm Documented by: Polyethylene Glycol (Miralax Powder Packet) 17 gm PO DAILY TONY Stop: 03/28/19 11:14 Last Admin: 02/26/19 11:34 Dose: 17 gm Documented by: Spironolactone (Aldactone) 25 mg PO QAM [facility] Stop: 03/28/19 08:59 Last Admin: 02/26/19 08:04 Dose: 25 mg Documented by: Terazosin HCl (Hytrin) 10 mg PO [facility] Stop: 03/27/19 20:59 Last Admin: 02/25/19 20:20 Dose: 10 mg Documented by: Resident Activity Tracking Resident Involvement: Resident Care Provided Care Provided: Adult [facility] Medicine
--- NOTE | 2019-02-26 14:45 | Gastrointestinal Consultation ---
Date of Consultation February 26, 2019 Assessment & Plan (1) Ascites: Discussed with hospitalist team that this amount of ascites does not explain shortness of breath. They ordered echo pursuing cardiac etiology. Agree with aldactone and lasix abd distension--suspect from constipation and told hospitalist team I agree with miralaxa and stool softener chronically but in meantime need to get more bms going as patient feels like there is a lot more and he is distended. So told them I recommend 300 ml bottle mag citrate cirrhosis--unclear etiology--doubt autoimmune with no symptoms previously, perhaps from chronic right heart failure, follow as output. liver shunt---if large enough this can cause shortness of breath/ low oxygenation so needs addressed at tertiary center by IR if other workup negative anemia--no indication of acute GI bleeding constipation--as above. . History of Present Illness Reason for Consultation: ascites Requesting Physician: Juan Cheung DO Attending Physician: Juan Cheung DO History of Present Illness CC shortness of breath HPI with patient for H and P. Pt known to me. I saw him in the office first time 12/28/18 at which time he had CT and u/s suggestive of cirrhosis with low volume ascites. He also had some abdominal lymphadenonathy which was followed Dr Graves of oncology. by He had mildly elevate ASMA and JESSICA but no obvious history of autoimmune hepatitis. Etiology of cirrhosis is not clear. At time of office visit I told patient to avoid ETOH completely and set up EGD to assess for varices which he had done 01/17/19 and was normal. The patient called the office this complaining of increased swelling of legs and abdomen with shortness of breath. Thinking this was worsening of ascites, we arranged output large volume paracentesis for yesterday. At that time there was only limited ascites noted and only 60 ml of fluid removed with no evidence of infection and SAAG 1.2 c/w portal HTN. CT today low volume ascites, liver shunt, pleural effusions, cirrhosis, diverticlosis. The patient states he has been struggling with constipation and until today had not had BM for 4 days. He denies bloody stools and black stools. He denies abd pain. Allergies Allergy/AdvReac Type Severity Reaction Status Date / Time Bactrim Allergy Unknown GI UPSET, Verified 08/15/18 09:28 FEVER, HEADACHE Cipro Allergy Unknown GI SYMPTOMS Verified 05/03/18 14:37 merbromin Allergy Unknown ALLERGIC Verified 02/25/19 13:29 TO MERCUROCHROME, RASH ciprofloxacin AdvReac Unknown GI SYMPTOMS Verified 02/25/19 13:29 sulfamethoxazole AdvReac Unknown GI UPSET, Verified 02/25/19 13:29 FEVER, HEADACHE trimethoprim AdvReac Unknown GI UPSET, Verified 02/25/19 13:29 FEVER, HEADACHE Home Medications Home Medications Medication Instructions Recorded Confirmed Type ascorbic acid (vitamin C) [Vitamin 1 g PO UD 01/04/19 02/25/19 History C] cyanocobalamin (vitamin B-12) 1,000 mcg PO HS 01/04/19 02/25/19 History hydrochlorothiazide 25 mg PO QPM 01/04/19 02/25/19 History terazosin 10 mg PO HS 01/04/19 02/25/19 History acetaminophen [Tylenol Extra 1,000 mg PO Q6H PRN 02/25/19 02/25/19 History Strength] magnesium hydroxide [Milk of 15 ml PO DAILY PRN 02/25/19 02/25/19 History Magnesia] Patient History Medical History Positive JESSICA (antinuclear antibody) Atrial fibrillation Cirrhosis of liver BPH (benign prostatic hyperplasia) Duodenal ulcer HX Sleep apnea MILD-NO DEVICE RX'D Arrhythmia HX Hypertension Pneumonia ON ANTIBIOTICS CURRENTLY X 5 DAYS THRU PCP Surgical History History of total knee replacement R/L History of colonoscopy History of esophagogastroduodenoscopy (EGD) Hx of transurethral resection of prostate History of cardiac radiofrequency ablation S/P Family History Father , Uncertain cause No problems noted. Mother , Uncertain cause No problems noted. 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 Beliefs That Will Affect Care: None marital status: Current Living Situation: Spouse current occupational status: retired Other Information That Helps Us Care for You: No Feels Safe at Home: Yes Safety Concerns: Feels Safe At This Time Smoking Status: Former smoker Tobacco Type: pipe Do You Dip or Chew Tobacco: No Smoking End Date: 2008 Second Hand Exposure: No Tobacco Cessation Education Requested by Patient: No Hx Alcohol Use: No Hx Substance Use: No Review of Systems Review of Systems: All systems reviewed & are unremarkable except as noted in HPI & below Physical Exam Constitutional: WD/WN, vitals as above Eyes: PERRL, conjunctivae normal, anicteric sclerae ENMT: external ear and nose normal, oropharynx normal Neck: normal visual inspection and trachea midline Respiratory: normal respiratory effort, lungs clear to auscultation Cardiovascular: Heart Sounds: normal S1 and normal S2 Gastrointestinal (Abdomen): abdomen distended and tympantic, no guarding nor rebound. Skin: no rashes, warm and dry Neurologic: PERRL, EOMI, accommodation nl, no face palsy, no dysarthria Psychiatric: A+Ox3, euthymic affect Results & Data Vital Signs (Past 12 Hours) Vital Signs Temp Pulse Resp BP Pulse Ox 02/26/19 11:30 36.4 C L 85 19 121/63 97 02/26/19 11:18 84 18 96 02/26/19 07:41 36.5 C 77 19 124/65 97
[2019-02-26] MEDS ORDERED: MAGNESIUM CITRATE 296 ML/BTL PO STA (15:23)
[2019-02-26 17:18] LABS: Appearance Urine Clear (Clear); Bacteria Urine Automated Negative (Negative); Bilirubin Urine Negative (Negative); Blood Urine Negative (Negative); Cast Urine Automated 0 /lpf (0-5); Color Urine Yellow; Glucose Urine UA Negative (Negative); Ketones Urine Negative (Negative); Leukocyte Esterase Urine Trace (Negative); Nitrite Urine Negative (Negative); Protein Urine Negative (Negative); RBC Urine Automated 0-4 /hpf (0-4); Specific Gravity Urine 1.025 (1.000-1.030); Urobilinogen Urine Positive (Negative)
--- NOTE | 2019-02-26 18:26 | Family Medicine Progress Note ---
Date of Service February 26, 2019 Subjective Please see separate documentation from the same date for actual clinical information. Today the EMR was changed to allow for in-EMR coding entry, and unfortunately residency documentation was on the older notes. This note was generated simply to allow entry of the proper codes, but the separate note/same date contains the actual clinical information. This should be a one-time issue, and I apologize for any confusion. Results & Data Vital Signs (Past 12 Hours) Vital Signs Temp Pulse Pulse Resp BP Pulse Ox 02/26/19 15:18 36.7 C 71 16 127/78 92 02/26/19 11:30 36.4 C L 85 19 121/63 97 02/26/19 11:18 84 18 96 02/26/19 07:41 36.5 C 77 19 124/65 97
[2019-02-26] MEDS: CYANOCOBALAMIN 500 MCG TABLET (VITAMIN B-12) PO SCH (20:18)
[2019-02-26] MEDS: TERAZOSIN HCL 5 MG CAP PO SCH (20:18)
[2019-02-27 07:22] LABS: INR 1.4 (0.9-1.1); Prothrombin Time 14.3 Seconds (9.0-12.0)
[2019-02-27 07:32] LABS: Basophils # (auto) 0.07 K/uL (0-0.2); Basophils % (auto) 1.8 %; Eosinophils # (auto) 0.21 K/uL (0-0.5); Eosinophils % (auto) 5.4 %; Hematocrit (blood only) 33.8 % (42-52); Hemoglobin 10.9 g/dL (14.0-18.0); Immature Granulocytes # (auto) 0.01 K/uL (0.00-0.02); Immature Granulocytes % (auto) 0.3 %; Lymphocytes # (auto) 0.85 K/uL (1.2-3.4); Lymphocytes % (auto) 21.7 %; Mean Corpuscular Hgb Conc 32.2 g/dL (32-36); Mean Corpuscular Volume 93.1 fL (80-100); Mean Platelet Volume 9.4 fL (7.4-10.4); Monocytes # (auto) 0.47 K/uL (0.11-0.59); Neutrophils # (auto) 2.31 K/uL (1.4-6.5); Neutrophils % (auto) 58.8 %; Platelet Count 135 K/uL (130-400); RDW Coefficient of Variation 16.5 % (11.5-14.5); RDW Standard Deviation 56.2 fL (36.4-46.3); Red Blood Count 3.63 M/uL (4.7-6.1); White Blood Count 3.92 K/uL (4.8-10.8)
[2019-02-27 07:52] LABS: Albumin Level 3.2 gm/dl (3.4-5.0); BUN Creatinine Ratio 16.3 (10-20); Bilirubin Direct 1.4 mg/dl (0-0.2); Calcium 8.5 mg/dl (8.5-10.1); Est GFR (African American) 86.5; Est GFR (Non-African American) 74.6; Potassium 3.7 mmol/L (3.5-5.1)
[2019-02-27 07:56] LABS: Albumin Globulin Ratio 0.9 (0.9-2); Bilirubin,Total 2.1 mg/dl (0.2-1); Globulin 3.4 gm/dl (2.5-4.0); Total Protein 6.6 gm/dl (6.4-8.2)
[2019-02-27] MEDS: FUROSEMIDE 40 MG in SYRINGE 0 ML IV SCH ×2 (07:59→18:06)
[2019-02-27] MEDS: ASCORBIC ACID 500 MG TAB PO SCH (08:00)
[2019-02-27] MEDS: DOCUSATE SODIUM 100 MG CAP PO SCH ×2 (08:00→14:52)
[2019-02-27] MEDS: POLYETHYLENE (MIRALAX) 17 GM PACK PO SCH ×2 (08:00→14:51)
[2019-02-27] MEDS: SPIRONOLACTONE 25 MG TAB PO SCH (08:00)
[2019-02-27] MEDS: ALBUT/IPRATROP 3MG/0.5MG NEB 3 ML VIAL NEB SCH ×3 (11:18→21:00)
[2019-02-27] MEDS ORDERED: DOCUSATE SODIUM 100 MG CAP PO PRN (12:38)
[2019-02-27] MEDS ORDERED: POLYETHYLENE (MIRALAX) 17 GM PACK PO PRN (12:38)
[2019-02-27] MEDS ORDERED: OPTIRAY 320 125ml IV PRN (13:25)
[2019-02-27] MEDS: LEVALBUTEROL HCL 0.63 MG/3 ML NEB NEB SCH ×3 (13:42→20:05)
[2019-02-27] MEDS: IPRATROPIUM BROMIDE NEB SOLN 0.02% 2.5 ML VIAL INH SCH ×3 (13:42→20:05)
[2019-02-27] MEDS ORDERED: XOPENEX/ATROVENT 0.63mg/0.5MG NEB COMBO NEB SCH (14:00)
--- NOTE | 2019-02-27 14:11 | Gastroenterology Progress Note ---
Date of Service February 27, 2019 Assessment & Plan (1) Ascites: cultures neg so far, cytology pending cirrhosis--unclear etiologuy shortness of breath--echo shows severe TR--spoke with team and right heart failure can cause worsenign liver disease and shortness of breath--defer to hospitalists constipation--improved--would continue miralax and stool softener. Subjective cc f/u shortness of breath, ascites, constipation HPI Pt states SOB better. No abd pain. Had multiple bms yesterday post Mag citrate. Review of Systems Respiratory: + dyspnea better Cardiovascular: no chest pain Physical Exam Constitutional: WD/WN, vitals as above Respiratory: normal respiratory effort, lungs clear to auscultation Cardiovascular: edema Gastrointestinal (Abdomen): post bs, distended and tympanatic perhaps somewhat less then yesterday, no guarding nor rebound Psychiatric: A+Ox3, euthymic affect Results & Data Vital Signs (Past 12 Hours) Vital Signs Temp Pulse Resp BP Pulse Ox 02/27/19 11:18 100 H 18 94 02/27/19 07:34 36.8 C 73 18 111/68 93
--- NOTE | 2019-02-27 14:53 | CT Scan Report ---
CT ANGIOGRAM OF THE CHEST CLINICAL HISTORY: Right-sided heart failure. COMPARISON STUDY: Chest x-ray dated 02/25/2019. Chest CT dated 12/21/2010. TECHNIQUE: Following the IV administration of 120 cc of Optiray 320, CT angiogram of the chest was pe rformed from the upper abdomen to the thoracic inlet utilizing the pulmonary embolus protocol. Images are reviewed in the axial, sagittal, and coronal planes. 3-D MIPS images are created and assessed. I V contrast was administered without complication. A dose lowering technique was utilized adhering to the principles of ALARA. The examination is compromised by motion artifact. CT DOSE: 415.52 mGy.cm FINDINGS: Thyroid: Atrophic. Thoracic aorta: There is advanced atherosclerotic calcification of the thoracic aorta, which is dani l in caliber and demonstrates standard 3-vessel arch anatomy. The thoracic aorta is not well opacifie d. Pulmonary vasculature: The pulmonary trunk is dilated, measuring 4.4 cm diameter. This indicates pulm onary artery hypertension. There are no filling defects identified in main, lobar, or proximal segmen sun pulmonary branches to suggest pulmonary embolus. Evaluation of the peripheral branches is comprom ised by motion artifact. Heart: The heart is enlarged and without pericardial effusion. The coronary arteries are densely calc ified. Lungs and pleural spaces: Evaluation of the lung parenchyma is degraded by motion artifact. There are moderate pleural effusions with associated atelectasis. Mild intralobular septal thickening suggests congestive failure. No airspace consolidation is seen typical for pneumonia. The trachea and central airways are clear. A calcified granuloma seen in the right upper lobe. Mediastinum: There is no mediastinal lymphadenopathy. Georgina: There are calcified left hilar nodes. No hilar adenopathy is seen. Axillae: There is no axillary lymphadenopathy. Upper abdomen: The liver is cirrhotic in morphology and heterogeneous in attenuation. There is nodula rity of the hepatic surface contour. Ascites is noted in the upper abdomen. The inferior vena cava ap pears distended and there is reflux of IV contrast. This suggests cardiac dysfunction. Skeletal structures: The skeletal structures are heterogeneously osteopenic. Degenerative change is s een throughout the thoracic spine and in the shoulders. A bone island is noted in the body of T12. No lytic or blastic bony lesions are seen. Soft tissues: There is mild anasarca of the body wall. IMPRESSION: 1. Motion compromised examination. 2. Cardiomegaly with evidence of congestive failure and pulmonary artery hypertension. 3. There is no evidence of pulmonary embolus in the main, lobar, or proximal segmental pulmonary corby waqar. 4. Moderate pleural effusions with bibasilar atelectasis. 5. Cirrhosis and ascites. 6. Additional findings as above. Electronically signed by: Braulio Villalobos M.D. 02/27/2019 2:51 PM
--- NOTE | 2019-02-27 17:32 | Family Medicine Progress Note ---
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 Suspected hepatic cirrhosis. Low volume ascites. Portal veins patent. Stable 12 mm hypervascular focus within the left lobe of the liver - suggestive of a small shunt/vascular malformations. Diverticulosis. L Generalized body wall edema. Stable mild retroperitoneal lym phadenopathy. Prostatomegaly LFT: Total bili 2.1 direct bili 1.4 albumin 3.2; INR 1.4 not anticoagulated Started on trial of Lasix 40 mg IV twice daily and spironolactone 25 mg every morning with adequate diuresis GI consulted: likely to be due to underlying R sided heart failure (2) Shortness of breath: Found to have severe R sided heart failure ECHO: EF 55-60% severely dilated RV and RA, severe central tricuspid regurg, moderate pulm HTN 50mmHG, dilated inferior vena cava with R atrial pressure of 15mmHG, type 2 diastolic dysfunction and moderately dilated LA Lungs diminished on exam, JVD and LE edema CT abdomen: Small to moderate bilateral pleural effusions with basilar atelectatic change, Low volume ascites On supplemental oxygen, 2 L now On duonebs for symptomatic relief (3) Atrial fibrillation: Rate controlled at this time History of GI bleed not on anticoagulation (4) Cirrhosis of liver: Likely from liver congestion secondary to significant R sided heart failure in addition to likely mild cirrhosis secondary to alcohol vs. fatty liver (5) BPH (benign prostatic hyperplasia): On home Terazosin (6) Hypertension: On home Terazosin Also on diuretics Lasix 40 mg IV twice daily for ascites which should help with blood pressure (7) DVT prophylaxis: Encourage ambulation, history of GI bleed on anticoagulation, skin breakdown associated with venous stasis skin changes as such SCDs avoided especially given minimal benefit (8) Constipation: Resolved Received Mag citrate 300 mL x 1 Colace and MiraLAX prn (9) Vascular malformation of liver: Abdominal CT 12 mm hypervascular focus in liver concerning for small shunt versus vascular malformation Per GI could also explain shortness of breath if large enough and needs addressed at tertiary center by IR if other workup negative (10) Right-sided heart failure: Likely secondary to recent R ventricle ischemia Explains ascites and sob discussed above ECHO 02/27/19: EF 55-60% severely dilated RV and RA, severe central tricuspid regurg, moderate pulm HTN 50mmHG, dilated inferior vena cava with R atrial pressure of 15mmHG, type 2 diastolic dysfunction and moderately dilated LA R sided EKG reflects Q waves which likely points to recent R ventricular ischemia Overnight pulse oximetry and AM ABG ordered to rule out signficant sleep apnea (pt denies any history of YURIDIA) as it could potentially cause pulm HTN and thus R sided heart failure Cardiology consulted for further evaluation/management Supervising Physician Co-Signing Physician Notes I personally examined the patient and verified all dupree points of history and exam, discussed case, and agree with decision making with Dr Jin. Feeling about the same. Updated extensively. Case discussed extensively with gastroenterology. Echo noted. Please note in follow-up, there is an echo noted in all scripts from about 2 months ago and this represents a severe worsening as far as the tricuspid regurg and the right heart function. Vitals noted, in general he is awake and alert pleasant but fatigued no distress. HEENT normal cephalic atraumatic mucous members moist. Breathing unlabored no accessory muscle use good effort. Skin shows no rashes no pallor or icterus. New/worsening right-sided CHFhis echocardiogram in late November in the office showed moderate tricuspid regurg and mild RV dysfunction, now both are severe. His symptoms have progressed along the same timeline, and the concern would be what led to his abrupt worsening of right-sided CHF both on echo and more importantly symptomatically. PE was considered given that this could cause any acute worsening of right heart strain, but this was ruled out by CT. Sleep apnea/pulmonary hypertension could lead to the severe right heart strain theoretically, but it would be very odd for it to happen so abruptly, given the pulmonary hypertension seems to usually be a slow progressive illnessfor completeness we will check an overnight pulse ox in a.m. blood gas. The concern would be could he possibly have had the odd entity of isolated right heart ischemia. His baseline EKG shows morphology in leads II, III and aVF that are not technically Q waves but hint towards it, and a right-sided EKG shows Q waves in V4R. This, combined with lack of other working diagnoses as to explain the abrupt worsening (again both symptomatically and by echo) of his right-sided heart failure beg the question of an ischemic work-up. We will ask cardiology to see him. Is also possible he may need a right and left heart cath but we will defer to their expertise in this regard. Continue diuretic management, so far he has not had any abrupt spike in creatinine or drop in blood pressure to suggest volume depletion. Subjective Pt reports 2 large bowel movements. Continues to have sob but may be a little better than yesterday. Denies any CHIN/dizziness, cp, n/v, abdominal pain, diarrhea, constipation, dysuria. Review of Systems Review of Systems: As per HPI Physical Exam Physical Exam: General: Pleasant in no acute distress CV: Irregular rhythm regular rate no m/r/g appreciated, significant JVD Pulm: Diminished breath sounds with diffuse mild wheezing no crackles appreciated, equal breath sounds bilaterally Abdomen: +BS, distended, tympanic, nontender to palpation all quadrants LE: trace to 1+ lower extremity edema, no calf tenderness, chronic venous skin changes bilaterally Results & Data Vital Signs (Past 12 Hours) Vital Signs Temp Pulse Resp BP Pulse Ox Pulse Ox 02/27/19 16:00 93 02/27/19 15:37 37.8 C H 66 20 133/78 94 02/27/19 14:37 90 18 95 02/27/19 11:18 100 H 18 94 02/27/19 07:34 36.8 C 73 18 111/68 93 Laboratory Results Abnormal lab results 02/27/19 02/27/19 02/27/19 Range/Units 06:35 06:35 06:35 WBC 3.92 L (4.8-10.8) K/uL RBC 3.63 L (4.7-6.1) M/uL Hgb 10.9 L (14.0-18.0) g/dL Hct 33.8 L (42-52) % RDW Std Deviation 56.2 H (36.4-46.3) fL RDW Coeff of Chel 16.5 H (11.5-14.5) % Lymph # (Auto) 0.85 L (1.2-3.4) K/uL PT 14.3 H (9.0-12.0) Seconds INR 1.4 H (0.9-1.1) Carbon Dioxide 36 H (21-32) mmol/L Total Bilirubin 2.1 H (0.2-1) mg/dl Direct Bilirubin 1.4 H (0-0.2) mg/dl Alkaline Phosphatase 205 H (45-117) U/L Albumin 3.2 L (3.4-5.0) gm/dl Diagnostic Findings CT ANGIOGRAM OF THE CHEST CLINICAL HISTORY: Right-sided heart failure. COMPARISON STUDY: Chest x-ray dated 02/25/2019. Chest CT dated 12/21/2010. TECHNIQUE: Following the IV administration of 120 cc of Optiray 320, CT angiogram of the chest was performed from the upper abdomen to the thoracic inlet utilizing the pulmonary embolus protocol. Images are reviewed in the axial, sagittal, and coronal planes. 3-D MIPS images are created and assessed. IV contrast was administered without complication. A dose lowering technique was utilized adhering to the principles of ALARA. The examination is compromised by motion artifact. CT DOSE: 415.52 mGy.cm FINDINGS: Thyroid: Atrophic. Thoracic aorta: There is advanced atherosclerotic calcification of the thoracic aorta, which is normal in caliber and demonstrates standard 3-vessel arch anatomy. The thoracic aorta is not well opacified. Pulmonary vasculature: The pulmonary trunk is dilated, measuring 4.4 cm diameter. This indicates pulmonary artery hypertension. There are no filling defects identified in main, lobar, or proximal segmental pulmonary branches to suggest pulmonary embolus. Evaluation of the peripheral branches is compromised by motion artifact. Heart: The heart is enlarged and without pericardial effusion. The coronary arteries are densely calcified. Lungs and pleural spaces: Evaluation of the lung parenchyma is degraded by motion artifact. There are moderate pleural effusions with associated atelectasis. Mild intralobular septal thickening suggests congestive failure. No airspace consolidation is seen typical for pneumonia. The trachea and central airways are clear. A calcified granuloma seen in the right upper lobe. Mediastinum: There is no mediastinal lymphadenopathy. Georgina: There are calcified left hilar nodes. No hilar adenopathy is seen. Axillae: There is no axillary lymphadenopathy. Upper abdomen: The liver is cirrhotic in morphology and heterogeneous in attenuation. There is nodularity of the hepatic surface contour. Ascites is noted in the upper abdomen. The inferior vena cava appears distended and there is reflux of IV contrast. This suggests cardiac dysfunction. Skeletal structures: The skeletal structures are heterogeneously osteopenic. Degenerative change is seen throughout the thoracic spine and in the shoulders. A bone island is noted in the body of T12. No lytic or blastic bony lesions are seen. Soft tissues: There is mild anasarca of the body wall. IMPRESSION: 1. Motion compromised examination. 2. Cardiomegaly with evidence of congestive failure and pulmonary artery hypertension. 3. There is no evidence of pulmonary embolus in the main, lobar, or proximal segmental pulmonary arteries. 4. Moderate pleural effusions with bibasilar atelectasis. 5. Cirrhosis and ascites. 6. Additional findings as above. Medications Administered Current Inpatient Medications Al Hydrox/Mg Hydrox/Simethicone (Maalox) 30 ml PO Q6H PRN PRN Reason: Dyspepsia Stop: 03/27/19 18:06 Albuterol (Duoneb) 3 ml NEB QIDR TONY Stop: 03/29/19 11:59 Last Admin: 02/27/19 14:39 Dose: Not Given Documented by: Ascorbic Acid (Vitamin C) 1,000 mg PO DAILY [facility] Stop: 03/27/19 18:06 Last Admin: 02/27/19 08:00 Dose: 1,000 mg Documented by: Cyanocobalamin (Vitamin B-12) 1,000 mcg PO HS [facility] Stop: 03/27/19 20:59 Last Admin: 02/26/19 20:18 Dose: 1,000 mcg Documented by: Docusate Sodium (Colace) 100 mg PO BID PRN PRN Reason: Constipation Stop: 03/28/19 11:14 Docusate Sodium (Colace) 100 mg PO DAILY [facility] Stop: 03/29/19 14:14 Last Admin: 02/27/19 14:52 Dose: 100 mg Documented by: Furosemide 40 mg/ Syringe 4 mls @ 4 mls/min IV BID17 TONY Stop: 03/27/19 18:06 Last Admin: 02/27/19 07:59 Dose: 4 mls/min Documented by: Ioversol (Optiray 320 100ml) 93 ml IV ONCE PRN PRN Reason: Interaction Checking Stop: 03/02/19 10:31 Last Admin: 02/26/19 10:33 Dose: 93 ml Documented by: Ioversol (Optiray 320 125ml) 120 ml IV ONCE PRN PRN Reason: Interaction Checking Stop: 03/03/19 13:24 Last Admin: 02/27/19 13:26 Dose: 120 ml Documented by: Ipratropium [place] (Atrovent 0.02% 0.5mg/2.5ml) 0.5 mg INH Q6R TONY Stop: 03/29/19 13:59 Last Admin: 02/27/19 14:37 Dose: 0.5 mg Documented by: Levalbuterol HCl (Xopenex 0.63 Mg/3 Ml Neb) 0.63 mg NEB Q6R TONY Stop: 03/29/19 13:59 Last Admin: 02/27/19 14:37 Dose: 0.63 mg Documented by: Magnesium Hydroxide (Milk Of Magnesia) 30 ml PO Q6H PRN PRN Reason: Constipation Stop: 03/27/19 18:06 Last Admin: 02/26/19 10:48 Dose: 30 ml Documented by: Ondansetron HCl (Zofran) 4 mg IV Q6H PRN PRN Reason: Nausea Stop: 03/27/19 18:06 Polyethylene Glycol (Miralax Powder Packet) 17 gm PO DAILY PRN PRN Reason: Constipation Stop: 03/27/19 18:06 Last Admin: 02/26/19 04:48 Dose: 17 gm Documented by: Polyethylene Glycol (Miralax Powder Packet) 17 gm PO DAILY PRN PRN Reason: Constipation Stop: 03/28/19 11:14 Polyethylene Glycol (Miralax Powder Packet) 17 gm PO DAILY TONY Stop: 03/29/19 14:14 Last Admin: 02/27/19 14:51 Dose: 17 gm Documented by: Spironolactone (Aldactone) 25 mg PO QAM TONY Stop: 03/28/19 08:59 Last Admin: 02/27/19 08:00 Dose: 25 mg Documented by: Terazosin HCl (Hytrin) 10 mg PO HS TONY Stop: 03/27/19 20:59 Last Admin: 02/26/19 20:18 Dose: 10 mg Documented by: Resident Activity Tracking Resident Involvement: Resident Care Provided Care Provided: Adult Hospital Medicine
[2019-02-27] MEDS: TERAZOSIN HCL 5 MG CAP PO SCH (20:41)
[2019-02-27] MEDS: CYANOCOBALAMIN 500 MCG TABLET (VITAMIN B-12) PO SCH (20:41)
[2019-02-28] MEDS: IPRATROPIUM BROMIDE NEB SOLN 0.02% 2.5 ML VIAL INH SCH ×4 (02:11→19:23)
[2019-02-28] MEDS: LEVALBUTEROL HCL 0.63 MG/3 ML NEB NEB SCH ×4 (02:11→19:23)
[2019-02-28 07:26] LABS: Allen Test Pos (Pos); HCO3 ABG 36 mmol/L (19-24); Oxygen Saturation ABG 90.5 % (90-95); PCO2 ABG 53 mmHg (35-46); PO2 ABG 60 mm/Hg (80-95); pH ABG 7.45 (7.35-7.45)
[2019-02-28 07:59] LABS: BUN Creatinine Ratio 15.3 (10-20); Bilirubin Direct 1.4 mg/dl (0-0.2); Calcium 8.3 mg/dl (8.5-10.1); Creatinine Clr Calc Pharmacy 56.6 ml/min; Est GFR (African American) 82.2; Est GFR (Non-African American) 70.9; Potassium 3.8 mmol/L (3.5-5.1)
[2019-02-28 08:02] LABS: Bilirubin,Total 2.3 mg/dl (0.2-1); Total Protein 6.7 gm/dl (6.4-8.2)
[2019-02-28] MEDS: FUROSEMIDE 40 MG in SYRINGE 0 ML IV SCH ×2 (08:41→18:24)
[2019-02-28] MEDS: ASCORBIC ACID 500 MG TAB PO SCH (08:42)
[2019-02-28] MEDS: SPIRONOLACTONE 25 MG TAB PO SCH (08:42)
[2019-02-28] MEDS: DOCUSATE SODIUM 100 MG CAP PO SCH (08:42)
[2019-02-28] MEDS: POLYETHYLENE (MIRALAX) 17 GM PACK PO SCH (08:43)
--- NOTE | 2019-02-28 09:20 | Cardiology Consultation ---
Date of Consultation February 28, 2019 Assessment & Plan (1) Fluid overload: He is clearly fluid overload with peripheral edema and ascites. His kidney function is normal, however he drinks a lot of fluid. He does have elevated pulmonary pressures and elevated right-sided pressures however I doubt that is a primary problem, and less pulmonary hypertension is a primary problem but several months ago he only had mild pulmonary hypertension. My guess is that he has become fluid overloaded due to excessive intake and less output, by his description he is gained about 16 pounds in several months. I would recommend diuresis until either his creatinine increases or we eliminate his edema. (2) Atrial fibrillation: He had a history of atrial flutter, for which we did an ablation and that worked for a number of years but he has been in atrial fibrillation for several years. He declines anticoagulation I discussed with him on several occasions. He is worried about losing his vision since he had the intraocular bleed in the past. His heart rate appears to be well controlled. History of Present Illness Reason for Consultation: [facility] Attending Physician: Krysta Dillard MD History of Present Illness This is a very pleasant 83-year-old gentleman who has a history of what was described as atrial fibrillation and I believe was identified at the time of colonoscopy in 2007 (per the patient's recollection). He was asymptomatic and was unaware of how much time he spent in the arrhythmia subsequently. I did review electrocardiograms in the hospital but the first one is May of 2010 and that demonstrates a quite regular atrial flutter. He was quite active, had no difficulty with physical activity including splitting wood and cleaning out the gutters. He was on warfarin at the time. 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 His warfarin was therefore discontinued in early June 2011. He has a history of a bleeding ulcer (duodenal historically and esophageal more recently) and therefore may not be an aspirin candidate. After reviewing electrocardiograms which suggested a very regular atrial rhythm we did arrange electrophysiologic study and ablation at [facility]. At study on July 24, 2011 he did appear to have typical atrial flutter and ablation was performed with apparent success. He has done well clinically subsequently, he remains asymptomatic from the cardiovascular standpoint and is quite active with his main limitation being his vision. His vision has improved somewhat but will probably never be normal. He subsequently was evaluated and his rhythm was irregular and the e lectrocardiogram was read as atrial fibrillation, however it was sinus rhythm with premature atrial beats. More recently he was in the hospital for prostatitis and was told that he was in atrial fibrillation, I checked the hospital records and there is no electrocardiogram listed so I'm not sure how the diagnosis was made but I suspect it was incorrect and based on an irregular pulse. He has low amplitude atrial activity and his rhythm has been very difficult to determine with accuracy over the years but until the spring we had not clearly documented atrial fibrillation or atrial flutter since his ablation. On December 24, 2016 however he was in atrial fibrillation. He declined anticoagulation due to his prior vision difficulties. An echocardiogram was done on December 22, 2018, this showed normal left ventricular size and function, moderate TR, mild pulmonary hypertension. The right ventricle was mildly dilated with normal systolic function. There was mild aortic sclerosis without stenosis. He describes a several month history of progressive abdominal disconnection, weight gain and peripheral edema. It is hard to tell exactly the time course, it sounds as though he has had worsening edema over about 6 months, increased abdominal distention over several months and he notes that his weight has increased by about 16 pounds by his home scale over the last several months. He began to get shortness of breath and was admitted. He does admit to drinking a lot of fluid but not using salt. He drinks a lot of fluid in order to keep himself hydrated. He has continued that during this hospitalization. Here he has been identified as being fluid overloaded with peripheral edema and ascites, his renal function is good, he has elevated right-sided pressures and elevated pulmonary pressures although his right ventricular systolic function is good. Here he has been diuresed to certain extent but is not on a fluid restriction and I only see weights from the last several days am not sure how much she is actually lost. He is feeling better however. Allergies Allergy/AdvReac Type Severity Reaction Status Date / Time Bactrim Allergy Unknown GI UPSET, Verified 05/12/18 09:28 FEVER, HEADACHE Cipro Allergy Unknown GI SYMPTOMS Verified 05/03/18 14:37 merbromin Allergy Unknown ALLERGIC Verified 02/25/19 13:29 TO MERCUROCHROME, RASH ciprofloxacin AdvReac Unknown GI SYMPTOMS Verified 02/25/19 13:29 sulfamethoxazole AdvReac Unknown GI UPSET, Verified 02/25/19 13:29 FEVER, HEADACHE trimethoprim AdvReac Unknown GI UPSET, Verified 02/25/19 13:29 FEVER, HEADACHE Home Medications Home Medications Medication Instructions Recorded Confirmed Type ascorbic acid (vitamin C) [Vitamin 1 g PO UD 01/04/19 02/25/19 History C] cyanocobalamin (vitamin B-12) 1,000 mcg PO HS 01/04/19 02/25/19 History hydrochlorothiazide 25 mg PO QPM 01/04/19 02/25/19 History terazosin 10 mg PO HS 01/04/19 02/25/19 History acetaminophen [Tylenol Extra 1,000 mg PO Q6H PRN 02/25/19 02/25/19 History Strength] magnesium hydroxide [Milk of 15 ml PO DAILY PRN 02/25/19 02/25/19 History Magnesia] Patient History Medical History Positive JESSICA (antinuclear antibody) Atrial fibrillation Cirrhosis of liver BPH (benign prostatic hyperplasia) Duodenal ulcer HX Sleep apnea MILD-NO DEVICE RX'D Arrhythmia HX Hypertension Pneumonia ON ANTIBIOTICS CURRENTLY X 5 DAYS THRU PCP Surgical History History of total knee replacement R/L History of colonoscopy History of esophagogastroduodenoscopy (EGD) Hx of transurethral resection of prostate History of cardiac radiofrequency ablation S/P Family History Father , Uncertain cause No problems noted. Mother , Uncertain cause No problems noted. Social History Preferred Language: Occitan Communication Ability: Effective Parts Counterman Required: No Beliefs That Will Affect Care: None marital status: Current Living Situation: Spouse current occupational status: retired Other Information That Helps Us Care for You: No Feels Safe at Home: Yes Safety Concerns: Feels Safe At This Time Smoking Status: Former smoker Tobacco Type: pipe Do You Dip or Chew Tobacco: No Smoking End Date: 2008 Second Hand Exposure: No Tobacco Cessation Education Requested by Patient: No Hx Alcohol Use: No Hx Substance Use: No Review of Systems Review of Systems: All systems reviewed & are unremarkable except as noted in HPI & below Physical Exam Physical Exam: Constitutional: Alert, cooperative and in mild distress. HEENT: Unremarkable Neck: Positive jugular venous distention, carotid pulses are irregular but otherwise normal and equal bilaterally without bruits. Pulmonary: Clear to auscultation bilaterally. Cardiac: Irregular rhythm with a soft crescendo decrescendo murmur at the base, no gallop or rub. Abdomen: Soft, distended, nontender with normal bowel sounds. Extremities: +3 bilateral pretibial edema with evidence of chronic venous stasis. Distal pulses intact. Neurologic: No focal findings. Gait was not tested. Skin: No rash, ecchymoses or petechiae. Signs of chronic venous stasis on both extremities Results & Data Vital Signs (Past 12 Hours) Vital Signs Temp Pulse Pulse Resp BP BP Pulse Ox 02/28/19 07:19 82 90 02/28/19 07:00 37.0 C 107 H 18 127/66 98 02/28/19 02:15 02/27/19 22:36 37.4 C 90 20 114/71 91 02/27/19 21:52 84 Pulse Ox Pulse Ox 02/28/19 07:19 02/28/19 07:00 02/28/19 02:15 92 02/27/19 22:36 02/27/19 21:52 90 Diagnostic Findings Electrocardiogram: Atrial fibrillation, bifascicular block, no acute changes Telemetry: He is not on telemetry (1) Fluid overload Hypervolemia type: unspecified Qualified Code(s): E87.70 - Fluid overload, unspecified
--- NOTE | 2019-02-28 15:27 | Family Medicine Progress Note ---
Date of Service February 28, 2019 Assessment & Plan (1) Shortness of breath: Mr. Vernon is a 83 year old male with a past medical history of atrial fibrillation, BPH, prior duodenal ulcer, and hypertension who presented to [facility] with shortness of breath and a 20 pound weight gain. Hypoxia and weight gain Acute diastolic CHF exacerbation - seen by cardiology -> thank you for recommendations -> appears to be fluid overloaded with peripheral edema and ascites -> continue diuresis until creatinine increases or edema resolves - ECHO: EF 55-60% w/severely dilated RV and RA, severe central tricuspid regurg, moderate pulm HTN, dilated inferior vena cava, type 2 diastolic dysfunction and moderately dilated LA -> anticipate improvement once adequately diuresed - Lungs diminished on exam, + JVD and LE edema - CT abdomen: Small to moderate bilateral pleural effusions with basilar atelectatic change, Low volume ascites - weaning down on supplemental oxygen, currently saturating well on room air - overnight pulse ox negative Severe TR with Right ventricular dilation noted on Echo - No concern of right heart failure. - These worsened findings compared to last Echo - secondary to fluid overload - per cardio. (2) Cirrhosis of liver: - thank you to GI for consult. - unclear etiology, outpatient management - potentially from hepatic congestion - CT abdomen w/t IV contrast: Mild hepatic steatosis. Suspected hepatic cirrhosis. Low volume ascites. Portal veins patent. Stable 12 mm hypervascular focus within the left lobe of the liver - suggestive of a small shunt/vascular malformations. Diverticulosis. L Generalized body wall edema. Stable mild retroperitoneal lymphadenopathy. Prostatomegaly - continue Lasix 40 mg IV twice daily and spironolactone 25 mg every morning (3) Atrial fibrillation: - Rate controlled at this time - History of intraocular bleed, not on anticoagulation (4) BPH (benign prostatic hyperplasia): - On home Terazosin (5) Hypertension: - was on HCTZ at home. This has been d/nikki in favor of lasix and spironolactone (6) Constipation: - Resolved - Received Mag citrate 300 mL x 1 - Colace and MiraLAX prn (7) Vascular malformation of liver: - Abdominal CT 12 mm hypervascular focus in liver concerning for small shunt versus vascular malformation - Per GI, could also explain shortness of breath if large enough and needs addressed at tertiary center by IR if other workup negative, however his SOB is likely explained by his volume status (8) DVT prophylaxis: - Encourage ambulation, history of GI bleed on anticoagulation, skin breakdown associated with venous stasis skin changes as such SCDs avoided especially given minimal benefit Code status: FULL Disposition: Pt lives at home with his and is independent with his care. Ambulates w/cane and walker. PT feels pt is at baseline. Supervising Physician Co-Signing Physician Notes Resident Physician Supervision Note: I independently interviewed and examined the patient and verified the dupree history and physical, reviewed labs and image studies, discussed the case with the resident Dr. Ramos and agree with the findings and care plan. Subjective Mr. Vernon reports his breathing is about the same as yesterday. He has no new complaints at this time. He denies chest pain, abdominal pain, nausea or vomiting. He does have a slight cough. He is eager to get up and start walking around the unit. Review of Systems Constitutional: no fever, no chills and no anorexia Respiratory: + cough Cardiovascular: + edema (improving, per patient); no chest pain and no palpitations Gastrointestinal: no abdominal pain, no nausea and no vomiting Physical Exam Constitutional: WD/WN, vitals as above Respiratory: normal respiratory effort, lungs clear to auscultation Cardiovascular: Rate/Rhythm: regular rate and + irregularly irregular Gastrointestinal (Abdomen): Inspection/Auscultation: + abdomen distended Percussion/Palpation: abdomen soft; abdomen nontender and no guarding Skin: b/l legs with chronic venous stasis changes. 3+ pitting edema b/l Results & Data Vital Signs (Past 12 Hours) Vital Signs Temp Pulse Resp BP Pulse Ox 02/28/19 14:44 94 02/28/19 14:32 82 16 92 02/28/19 07:19 82 90 02/28/19 07:00 37.0 C 107 H 18 127/66 98 Resident Activity Tracking Resident Involvement: Resident Care Provided Care Provided: Adult Hospital Medicine
--- NOTE | 2019-02-28 15:59 | Gastroenterology Progress Note ---
Date of Service February 28, 2019 Assessment & Plan (1) Ascites: cultures neg , cytology neg cirrhosis--unclear etiology, nothing acute to do shortness of breath--cardiology feels secondary to overall volume overload and patient drinks lot of fluid to keep hydrated. volume overaload--Na and fluid restriction and diruetics in effect per primary team. constipation--improved--would continue miralax and stool softener. Subjective cc f/u cirrhosis, volume overload HPI-- with patient for H and P. Pt states he feels he is diuresing. NO abd pain. Shortness of breath improved. No stools today. Review of Systems Respiratory: + dyspnea improved Cardiovascular: no chest pain Physical Exam Constitutional: WD/WN, vitals as above Respiratory: normal respiratory effort, lungs clear to auscultation Gastrointestinal (Abdomen): pos bs, moderately distended and tympanitic but no guarding nor rebound Psychiatric: A+Ox3, euthymic affect Results & Data Vital Signs (Past 12 Hours) Vital Signs Temp Pulse Resp BP BP Pulse Ox 02/28/19 15:40 37.1 C 67 18 104/58 L 93 02/28/19 14:44 94 02/28/19 14:32 82 16 92 02/28/19 07:19 82 90 02/28/19 07:00 37.0 C 107 H 18 127/66 98
[2019-02-28] MEDS ORDERED: DiphenhydrAMINE HCL 50 MG/ML VIAL IV PRN (17:03)
[2019-02-28] MEDS: TERAZOSIN HCL 5 MG CAP PO SCH (20:32)
[2019-02-28] MEDS: CYANOCOBALAMIN 500 MCG TABLET (VITAMIN B-12) PO SCH (20:32)
[2019-03-01] MEDS: IPRATROPIUM BROMIDE NEB SOLN 0.02% 2.5 ML VIAL INH SCH ×4 (02:21→19:37)
[2019-03-01] MEDS: LEVALBUTEROL HCL 0.63 MG/3 ML NEB NEB SCH ×4 (02:21→19:37)
[2019-03-01 08:29] LABS: Basophils # (auto) 0.03 K/uL (0-0.2); Basophils % (auto) 0.7 %; Eosinophils # (auto) 0.21 K/uL (0-0.5); Eosinophils % (auto) 5.2 %; Hematocrit (blood only) 32.9 % (42-52); Hemoglobin 10.6 g/dL (14.0-18.0); Lymphocytes # (auto) 0.86 K/uL (1.2-3.4); Lymphocytes % (auto) 21.3 %; Mean Corpuscular Hgb Conc 32.2 g/dL (32-36); Mean Corpuscular Volume 92.9 fL (80-100); Mean Platelet Volume 9.5 fL (7.4-10.4); Monocytes % (auto) 9.9 %; Neutrophils # (auto) 2.54 K/uL (1.4-6.5); Neutrophils % (auto) 62.9 %; Platelet Count 132 K/uL (130-400); RDW Coefficient of Variation 16.2 % (11.5-14.5); RDW Standard Deviation 55.8 fL (36.4-46.3); Red Blood Count 3.54 M/uL (4.7-6.1); White Blood Count 4.04 K/uL (4.8-10.8)
[2019-03-01 08:54] LABS: Albumin Level 3.1 gm/dl (3.4-5.0); BUN Creatinine Ratio 19.7 (10-20); Calcium 8.7 mg/dl (8.5-10.1); Creatinine Clr Calc Pharmacy 57.2 ml/min; Est GFR (African American) 83.2; Est GFR (Non-African American) 71.8; Potassium 3.5 mmol/L (3.5-5.1)
[2019-03-01] MEDS: SPIRONOLACTONE 25 MG TAB PO SCH (08:58)
[2019-03-01] MEDS: DOCUSATE SODIUM 100 MG CAP PO SCH (08:58)
[2019-03-01] MEDS: FUROSEMIDE 40 MG in SYRINGE 0 ML IV SCH ×2 (08:58→16:22)
[2019-03-01] MEDS: POLYETHYLENE (MIRALAX) 17 GM PACK PO SCH ×2 (08:58→20:16)
[2019-03-01] MEDS: ASCORBIC ACID 500 MG TAB PO SCH (08:58)
[2019-03-01 09:01] LABS: Albumin Globulin Ratio 0.9 (0.9-2); Globulin 3.5 gm/dl (2.5-4.0); Total Protein 6.6 gm/dl (6.4-8.2)
--- NOTE | 2019-03-01 10:26 | Cardiology Progress Note ---
Date of Service March 01, 2019 Assessment & Plan (1) Fluid overload: He is clearly fluid overload with peripheral edema and ascites. His kidney function is normal, however he was drinking a lot of fluid. He does have elevated pulmonary pressures and elevated right-sided pressures however I doubt that is a primary problem, unless pulmonary hypertension is a primary problem but several months ago he only had mild pulmonary hypertension by echo. My guess is that he has become fluid overloaded due to excessive intake and less output, by his description he is gained about 16 pounds in several months. I would recommend diuresis until either his creatinine increases or we eliminate his edema, I do not think he is there yet. (2) Atrial fibrillation: He had a history of atrial flutter, for which we did an ablation and that worked for a number of years but he has been in atrial fibrillation for several years. He declines anticoagulation I discussed with him on several occasions. He is worried about losing his vision since he had the intraocular bleed in the past. His heart rate appears to be well controlled. Subjective He continues to feel better, he is able to exert himself without too much shortness of breath and that is improving. He notes that his leg swelling is still present but improved. Physical Exam Physical Exam: Constitutional: Alert, cooperative and in no distress. Pulmonary: Clear to auscultation bilaterally. Cardiac: Irregular rhythm with no murmur, gallop or rub. Abdomen: Soft, distended, nontender with normal bowel sounds. Extremities: +2 bilateral pretibial edema. Skin: No rash, ecchymoses or petechiae, signs of chronic venous stasis in his lower extremities. Results & Data Vital Signs (Past 12 Hours) Vital Signs Temp Pulse Pulse Resp BP Pulse Ox 03/01/19 07:12 87 16 90 03/01/19 06:05 36.8 C 54 L 81 16 100/63 92 03/01/19 02:21 76 16 88 L 02/28/19 23:08 36.8 C 84 20 113/52 L 95 (1) Fluid overload Hypervolemia type: unspecified Qualified Code(s): E87.70 - Fluid overload, unspecified
--- NOTE | 2019-03-01 10:59 | Family Medicine Progress Note ---
Date of Service March 01, 2019 Assessment & Plan (1) Shortness of breath: Mr. Vernon is a 83 year old male with a past medical history of atrial fibrillation, BPH, prior duodenal ulcer, and hypertension who presented to [facility] with shortness of breath and a 20 pound weight gain. Acute on chronic diastolic CHF - CT abdomen: Small to moderate bilateral pleural effusions with basilar atelectatic change, Low volume ascites - Cardio consulted - diuresis regimen includes Lasix 40 mg IV twice daily and spironolactone 25 mg every morning - ECHO: EF 55-60% w/severely dilated RV and RA, severe central tricuspid regurg, moderate pulm HTN, dilated inferior vena cava, type 2 diastolic dysfunction and moderately dilated LA -> anticipate improvement once adequately diuresed - pt is net negative 5L since admission and has lost approx 5kg since admission - creatinine has remained stable at 0.96 Hypxia - pt reports improvement in symptoms, but he is still requiring 2L of oxygen (he is not normally on oxygen at home). He dropped to 88% when on room air. Wean as tolerated. - overnight pulse ox negative (2) Cirrhosis of liver: - thank you to GI for consult. - unclear etiology, outpatient management - potentially from hepatic congestion - CT abdomen w/t IV contrast: Mild hepatic steatosis. Suspected hepatic cirrhosis. Low volume ascites. Portal veins patent. Stable 12 mm hypervascular focus within the left lobe of the liver - suggestive of a small shunt/vascular malformations. Diverticulosis. L Generalized body wall edema. Stable mild retroperitoneal lymphadenopathy. Prostatomegaly (3) Atrial fibrillation: - heart rate appears well controlled - History of intraocular bleed, not on anticoagulation (4) Rash of back: - acute, began yesterday afternoon - only present on pt's back - is itchy - pt states he has a history of the same in the past and was related to an allergy - continue barrier cream - benadryl 12.5mg prn itch (5) BPH (benign prostatic hyperplasia): - On home Terazosin (6) Hypertension: - was on HCTZ at home. This has been d/nikki in favor of lasix and spironolactone (7) Constipation: - Resolved - Received Mag citrate 300 mL x 1 - Colace and MiraLAX prn (8) Vascular malformation of liver: - Abdominal CT 12 mm hypervascular focus in liver concerning for small shunt versus vascular malformation - Per GI, could also explain shortness of breath if large enough and needs addressed at tertiary center by IR if other workup negative, however his SOB is likely explained by his volume status (9) DVT prophylaxis: - Encourage ambulation, history of GI bleed on anticoagulation, skin breakdown associated with venous stasis skin changes as such SCDs avoided especially given minimal benefit Code status: FULL Disposition: Pt lives at home with his and is independent with his care. Ambulates w/cane and walker. PT feels pt is at baseline. Possible d/c tomorrow. (10) Ascites: (11) Fluid overload: Supervising Physician Co-Signing Physician Notes Resident Physician Supervision Note: I independently interviewed and examined the patient and verified the dupree history and physical, reviewed labs and image studies, discussed the case with the resident Dr. Ramos and agree with the findings and care plan. Subjective Mr. Vernon reports his breathing has improved today. He did develop a rash over his back yesterday afternoon that is itchy, but reports that putting cream on it helps with his symptoms. He states he thinks he had something similar in the past, and it was related to an allergy. He states he was up and walking around the unit, and did well with this. He confirms that he does not normally use oxygen at home. Review of Systems Constitutional: no fever, no chills, no fatigue and no anorexia Respiratory: + cough Cardiovascular: + edema (improving, per patient); no chest pain and no palpitations Gastrointestinal: no abdominal pain, no nausea and no vomiting Integumentary: + rash Physical Exam Constitutional: WD/WN, vitals as above Respiratory: normal respiratory effort, lungs clear to auscultation Cardiovascular: Rate/Rhythm: regular rate and + irregularly irregular b/l 2+ pitting edema w/chronic venous stasis changes Gastrointestinal (Abdomen): Inspection/Auscultation: + abdomen distended Percussion/Palpation: abdomen soft; abdomen nontender and no guarding Skin: + rash (erythematous papules noted to entire back. No rashes elsewhere) Results & Data Vital Signs (Past 12 Hours) Vital Signs Temp Pulse Pulse Resp BP Pulse Ox 03/01/19 07:12 87 16 90 03/01/19 06:05 36.8 C 54 L 81 16 100/63 92 03/01/19 02:21 76 16 88 L 02/28/19 23:08 36.8 C 84 20 113/52 L 95 Resident Activity Tracking Resident Involvement: Resident Care Provided Care Provided: Adult Hospital Medicine (1) Fluid overload Hypervolemia type: unspecified Qualified Code(s): E87.70 - Fluid overload, unspecified
--- NOTE | 2019-03-01 15:40 | Gastroenterology Progress Note ---
Date of Service March 01, 2019 Assessment & Plan (1) Ascites: cultures neg , cytology neg cirrhosis--unclear etiology, nothing acute to do shortness of breath--cardiology feels secondary to overall volume overload and patient drinks lot of fluid to keep hydrated. volume overaload--Na and fluid restriction and diruetics in effect per primary team. constipation--no bms for 2 day--increase miralax, continue stool softener. If no bms tomorrow then give another bottle of mag citrate. . Subjective cc f/u ascites, Shortness of breath HPI No bms today. No abd pain. States breathing is better. Review of Systems Respiratory: + dyspnea improved Cardiovascular: no chest pain Physical Exam Constitutional: WD/WN, vitals as above Respiratory: normal respiratory effort, lungs clear to auscultation Cardiovascular: Heart Sounds: normal S1 and normal S2 Gastrointestinal (Abdomen): pos bs, distended and tympantiic but no guarding nor rebound Psychiatric: A+Ox3, euthymic affect Results & Data Vital Signs (Past 12 Hours) Vital Signs Temp Pulse Pulse Resp BP Pulse Ox 03/01/19 14:10 71 16 94 03/01/19 07:12 87 16 90 03/01/19 06:05 36.8 C 54 L 81 16 100/63 92
[2019-03-01] MEDS: CYANOCOBALAMIN 500 MCG TABLET (VITAMIN B-12) PO SCH (20:17)
[2019-03-01] MEDS: TERAZOSIN HCL 5 MG CAP PO SCH (20:18)
[2019-03-02] MEDS: LEVALBUTEROL HCL 0.63 MG/3 ML NEB NEB SCH ×4 (01:47→19:33)
[2019-03-02] MEDS: IPRATROPIUM BROMIDE NEB SOLN 0.02% 2.5 ML VIAL INH SCH ×4 (01:47→19:33)
[2019-03-02 07:50] LABS: Basophils # (auto) 0.03 K/uL (0-0.2); Basophils % (auto) 0.9 %; Eosinophils # (auto) 0.25 K/uL (0-0.5); Eosinophils % (auto) 7.3 %; Hematocrit (blood only) 32.9 % (42-52); Hemoglobin 10.6 g/dL (14.0-18.0); Immature Granulocytes # (auto) 0.01 K/uL (0.00-0.02); Immature Granulocytes % (auto) 0.3 %; Lymphocytes # (auto) 0.79 K/uL (1.2-3.4); Lymphocytes % (auto) 23.2 %; Mean Corpuscular Hgb Conc 32.2 g/dL (32-36); Mean Corpuscular Volume 93.2 fL (80-100); Mean Platelet Volume 9.2 fL (7.4-10.4); Monocytes % (auto) 14.7 %; Neutrophils # (auto) 1.83 K/uL (1.4-6.5); Neutrophils % (auto) 53.6 %; Platelet Count 127 K/uL (130-400); RDW Coefficient of Variation 16.1 % (11.5-14.5); RDW Standard Deviation 55.2 fL (36.4-46.3); Red Blood Count 3.53 M/uL (4.7-6.1); White Blood Count 3.41 K/uL (4.8-10.8)
[2019-03-02 08:21] LABS: Albumin Level 2.9 gm/dl (3.4-5.0); BUN Creatinine Ratio 24.3 (10-20); Calcium 8.6 mg/dl (8.5-10.1); Creatinine Clr Calc Pharmacy 57.2 ml/min; Est GFR (African American) 83.2; Est GFR (Non-African American) 71.8; Potassium 3.5 mmol/L (3.5-5.1)
[2019-03-02 08:25] LABS: Albumin Globulin Ratio 0.8 (0.9-2); Bilirubin,Total 2.1 mg/dl (0.2-1); Globulin 3.6 gm/dl (2.5-4.0); Total Protein 6.5 gm/dl (6.4-8.2)
[2019-03-02 08:31] LABS: Anisocytosis Present; Platelet Estimate Decreased (Normal)
[2019-03-02] MEDS: ASCORBIC ACID 500 MG TAB PO SCH (08:41)
[2019-03-02] MEDS: SPIRONOLACTONE 25 MG TAB PO SCH (08:42)
[2019-03-02] MEDS: POLYETHYLENE (MIRALAX) 17 GM PACK PO SCH ×2 (08:43→20:45)
--- NOTE | 2019-03-02 09:43 | Family Medicine Progress Note ---
Date of Service March 02, 2019 Assessment & Plan (1) Acute on chronic diastolic (congestive) heart failure: Mr. Vernon is a 83 year old male with a past medical history of atrial fibrillation, BPH, prior duodenal ulcer, and hypertension who presented to [facility] with shortness of breath and a 20 pound weight gain. - CT abdomen on admission: Small to moderate bilateral pleural effusions with basilar atelectatic change, Low volume ascites - seen by cardiology -> thank you for recommendations -> appears to be fluid overloaded with peripheral edema and ascites -> continue diuresis until creatinine increases or edema resolves -> limited ECHO ordered for tomorrow to reassess right sided pressures and TR -> nutrition consult placed - diuresis regimen includes Lasix 40 mg IV twice daily and spironolactone 25 mg every morning - ECHO on 02/27: EF 55-60% w/severely dilated RV and RA, severe central tricuspid regurg, moderate pulm HTN, dilated inferior vena cava, type 2 diastolic dysfunction and moderately dilated LA -> anticipate improvement once adequately diuresed - continuing to improve -> pt is net negative 6L since admission and has lost approx 6kg since admission -> continues to put out ~2L/day - creatinine has remained stable at 0.96 Hypoxia - pt reports improvement in symptoms, but he is still requiring 2L of oxygen (he is not normally on oxygen at home). Wean as tolerated. If unable to wean, pt may require O2 on discharge. Cirrhosis of liver: - thank you to GI for consult. - unclear etiology, outpatient management - potentially from hepatic congestion - CT abdomen w/t IV contrast: Mild hepatic steatosis. Suspected hepatic cirrhosis. Low volume ascites. Portal veins patent. Stable 12 mm hypervascular focus within the left lobe of the liver - suggestive of a small shunt/vascular malformations. Diverticulosis. L Generalized body wall edema. Stable mild retroperitoneal lymphadenopathy. Prostatomegaly Atrial fibrillation: - heart rate appears well controlled - History of intraocular bleed, not on anticoagulation Rash of back: - acute, began on 02/28 - only present on pt's back. Has not worsened over past 2 days. - is itchy - pt states he has a history of the same in the past and was related to an allergy - continue barrier cream - benadryl 12.5mg prn itch Constipation: - previously received Mag citrate 300 mL x 1 - Colace and MiraLAX regimen increased per GI -> if this is ineffective, will give another dose of mag citrate - likely the cause of his abdominal discomfort BPH (benign prostatic hyperplasia): - On home Terazosin Hypertension: - was on HCTZ at home. This has been d/nikki in favor of lasix and spironolactone Vascular malformation of liver: - Abdominal CT 12 mm hypervascular focus in liver concerning for small shunt versus vascular malformation - Per GI, could also explain shortness of breath if large enough and needs addressed at tertiary center by IR if other workup negative, however his SOB is likely explained by his volume status DVT prophylaxis: Encourage ambulation, history of GI bleed on anticoagulation, skin breakdown associated with venous stasis skin changes as such SCDs avoided especially given minimal benefit Code status: FULL Disposition: Pt lives at home with his and is independent with his care. Ambulates w/cane and walker. PT feels pt is at baseline. Possible d/c tomorrow. (2) Hypoxia: (3) Shortness of breath: (4) Cirrhosis of liver: (5) Atrial fibrillation: (6) Rash of back: (7) BPH (benign prostatic hyperplasia): (8) Hypertension: (9) Constipation: (10) Vascular malformation of liver: (11) DVT prophylaxis: (12) Ascites: (13) Fluid overload: Supervising Physician Co-Signing Physician Notes Resident Physician Supervision Note: I independently interviewed and examined the patient and verified the dupree history and physical, reviewed labs and image studies, discussed the case with the resident Dr. Ramos and agree with the findings and care plan. Subjective Mr. Vernon reports his breathing continues to improve. He states he had a left sided abdominal stitch overnight, and notes that his last BM was over two days ago. He states his abdomen does feel more distended, and notes he is usually more regular with his BMs. He states he has been up and walking around and has done well with this. He denies any other complaints. Review of Systems Constitutional: no fever and no chills Respiratory: + cough Cardiovascular: + edema (improving, per patient); no chest pain and no palpitations Gastrointestinal: + abdominal pain, + bloating and + constipation; no nausea and no vomiting Integumentary: + rash Physical Exam Constitutional: WD/WN, vitals as above Respiratory: normal respiratory effort, lungs clear to auscultation Cardiovascular: Rate/Rhythm: regular rate and + irregularly irregular Gastrointestinal (Abdomen): Inspection/Auscultation: + abdomen distended (worsening) Percussion/Palpation: abdomen soft; abdomen nontender and no guarding Skin: + rash (erythematous papules noted to entire back. No rashes elsewhere) Psychiatric: A+Ox3, euthymic affect Results & Data Vital Signs (Past 12 Hours) Vital Signs Temp Pulse Resp BP BP Pulse Ox 03/02/19 07:51 68 18 93 03/02/19 06:25 36.7 C 78 18 126/51 L 95 03/02/19 01:47 87 16 97 03/02/19 00:13 113/61 93 03/01/19 23:35 37.1 C 77 18 89/38 L 93 Resident Activity Tracking Resident Involvement: Resident Care Provided Care Provided: Adult Hospital Medicine (1) Fluid overload Hypervolemia type: unspecified Qualified Code(s): E87.70 - Fluid overload, unspecified
[2019-03-02] MEDS: DOCUSATE SODIUM 100 MG CAP PO SCH (09:47)
[2019-03-02] MEDS: FUROSEMIDE 40 MG in SYRINGE 0 ML IV SCH (09:47)
--- NOTE | 2019-03-02 13:09 | Cardiology Progress Note ---
Date of Service March 02, 2019 Assessment & Plan (1) Fluid overload: He presented fluid overload with peripheral edema and ascites. His kidney function is normal, however he was drinking a lot of fluid. He does have elevated pulmonary pressures and elevated right-sided pressures however I doubt that is a primary problem, unless pulmonary hypertension is a primary problem but several months ago he only had mild pulmonary hypertension by echo. My guess is that he has become fluid overloaded due to excessive intake and less output, by his description he is gained about 16 pounds in several months. I would recommend diuresis until either his creatinine increases or we eliminate his edema, I do not think he is there yet. I am going to get a limited echo tomorrow to look at right-sided pressures and TR. (2) Atrial fibrillation: He had a history of atrial flutter, for which we did an ablation and that worked for a number of years but he has been in atrial fibrillation for several years. He declines anticoagulation I discussed with him on several occasions. He is worried about losing his vision since he had the intraocular bleed in the past. His heart rate appears to be well controlled. (3) Edema: He presented with significant edema and ascites for reasons which are not completely clear. Renal function is good, he does have elevated right-sided pressures although by echocardiography several months ago he had only mild pulmonary hypertension. We have been able to diurese him quite well and his renal function remains normal. He does have a low albumin which could contribute to edema. I am going to ask nutrition to see him to see whether he needs a nutritional supplement which might help with the edema. He also needs to curtail some fluid intake at home. Subjective He feels better in general, his breathing is better and he is able to walk around the room with less difficulty. He is however still using oxygen. He has some minor abdominal discomfort which he relates not having a bowel movement in several days. He notes that his leg swelling appears to be better. Physical Exam Physical Exam: Constitutional: Alert, cooperative and in no distress. Pulmonary: Clear to auscultation bilaterally. Cardiac: Irregular rhythm with no murmur, gallop or rub. Abdomen: Soft, distended, nontender with normal bowel sounds. Extremities: +2 bilateral pretibial edema. Skin: No rash, ecchymoses or petechiae, signs of chronic venous stasis in his lower extremities. Results & Data Vital Signs (Past 12 Hours) Vital Signs Temp Pulse Resp BP Pulse Ox 03/02/19 07:51 68 18 93 03/02/19 06:25 36.7 C 78 18 126/51 L 95 03/02/19 01:47 87 16 97 (1) Fluid overload Hypervolemia type: unspecified Qualified Code(s): E87.70 - Fluid overload, unspecified
[2019-03-02] MEDS ORDERED: MAGNESIUM CITRATE 296 ML/BTL PO STA (15:34)
--- NOTE | 2019-03-02 15:34 | Gastroenterology Progress Note ---
Date of Service March 02, 2019 Assessment & Plan (1) Ascites: cultures neg , cytology neg cirrhosis--unclear etiology, nothing acute to do shortness of breath--cardiology feels secondary to overall volume overload and patient drinks lot of fluid to keep hydrated. volume overaload--Na and fluid restriction and diruetics in effect per primary team. constipation--no bms for 3days--Continue miralax, continue stool softener but bottle mag citrate now to hopefully have bm today. . . Subjective cc f/u ascites, cirrhosis HPI States no bm today so now 3 days since last one. Some intemittent left sided abd cramping. Review of Systems Respiratory: + dyspnea improved Cardiovascular: no chest pain Physical Exam Constitutional: WD/WN, vitals as above Respiratory: normal respiratory effort, lungs clear to auscultation Cardiovascular: Heart Sounds: normal S1 and normal S2 Gastrointestinal (Abdomen): pos bs, moderate distension and tympany, no guarding nor rebound Psychiatric: A+Ox3, euthymic affect Results & Data Vital Signs (Past 12 Hours) Vital Signs Temp Pulse Resp BP Pulse Ox 03/02/19 14:10 63 18 91 03/02/19 07:51 68 18 93 03/02/19 06:25 36.7 C 78 18 126/51 L 95
[2019-03-02] MEDS: TERAZOSIN HCL 5 MG CAP PO SCH (20:45)
[2019-03-02] MEDS: CYANOCOBALAMIN 500 MCG TABLET (VITAMIN B-12) PO SCH (20:45)
[2019-03-02] MEDS ORDERED: ACETAMINOPHEN 325 MG TAB PO PRN (22:34)
[2019-03-03] MEDS: LEVALBUTEROL HCL 0.63 MG/3 ML NEB NEB SCH ×4 (01:48→20:00)
[2019-03-03] MEDS: IPRATROPIUM BROMIDE NEB SOLN 0.02% 2.5 ML VIAL INH SCH ×4 (01:48→20:00)
[2019-03-03 06:25] LABS: Basophils # (auto) 0.03 K/uL (0-0.2); Basophils % (auto) 0.3 %; Eosinophils # (auto) 0.07 K/uL (0-0.5); Eosinophils % (auto) 0.7 %; Hematocrit (blood only) 34.3 % (42-52); Hemoglobin 11.1 g/dL (14.0-18.0); Immature Granulocytes # (auto) 0.02 K/uL (0.00-0.02); Immature Granulocytes % (auto) 0.2 %; Lymphocytes # (auto) 0.75 K/uL (1.2-3.4); Lymphocytes % (auto) 7.9 %; Mean Corpuscular Hgb Conc 32.4 g/dL (32-36); Mean Corpuscular Volume 93.5 fL (80-100); Mean Platelet Volume 9.2 fL (7.4-10.4); Monocytes % (auto) 9.4 %; Neutrophils # (auto) 7.76 K/uL (1.4-6.5); Neutrophils % (auto) 81.5 %; Platelet Count 120 K/uL (130-400); RDW Coefficient of Variation 16.1 % (11.5-14.5); Red Blood Count 3.67 M/uL (4.7-6.1); White Blood Count 9.53 K/uL (4.8-10.8)
[2019-03-03 07:03] LABS: BUN Creatinine Ratio 27.9 (10-20); Calcium 8.6 mg/dl (8.5-10.1); Creatinine Clr Calc Pharmacy 54.3 ml/min; Est GFR (African American) 78.2; Est GFR (Non-African American) 67.5; Potassium 3.5 mmol/L (3.5-5.1)
[2019-03-03 07:06] LABS: Albumin Globulin Ratio 0.8 (0.9-2); Bilirubin,Total 2.5 mg/dl (0.2-1); Globulin 3.8 gm/dl (2.5-4.0); Total Protein 6.8 gm/dl (6.4-8.2)
--- NOTE | 2019-03-03 07:48 | XRay Report ---
XR chest 1V portable HISTORY: Crackles, cough COMPARISON: Chest 02/25/2019. FINDINGS: No pneumothorax. Mild interstitial pulmonary edema, cardiomegaly, small bilateral pleural e ffusions, and bibasilar densities persist. There is a new left midlung zone focal airspace opacity. IMPRESSION: 1. No change in the mild pulmonary edema and small bilateral pleural effusions. 2. Progressive left mid lung zone airspace opacity which may represent pneumonia. Electronically signed by: Joel Ramirez M.D. 03/03/2019 7:47 AM
[2019-03-03] MEDS ORDERED: VANCOMYCIN CONSULT ACTIVE PRN (08:20)
[2019-03-03] MEDS: DOCUSATE SODIUM 100 MG CAP PO SCH (08:46)
[2019-03-03] MEDS: SPIRONOLACTONE 25 MG TAB PO SCH (08:46)
[2019-03-03] MEDS: ASCORBIC ACID 500 MG TAB PO SCH (08:46)
[2019-03-03] MEDS ORDERED: FUROSEMIDE 40 MG in SYRINGE 0 ML IV SCH (09:00)
[2019-03-03] MEDS ORDERED: VANCOMYCIN HCL 1,750 MG in SODIUM CHLORIDE 0.9% 500 ML IV SCH (09:30)
[2019-03-03] MEDS: CEFEPIME 2,000 MG in SYRINGE 7.5 ML IV SCH ×2 (09:50→21:20)
[2019-03-03] MEDS: POLYETHYLENE (MIRALAX) 17 GM PACK PO SCH ×2 (09:51→21:17)
[2019-03-03 13:28] LABS: BUN Creatinine Ratio 34.3 (10-20); Calcium 8.7 mg/dl (8.5-10.1); Creatinine Clr Calc Pharmacy 60.3 ml/min; Est GFR (African American) 88.8; Est GFR (Non-African American) 76.6; Potassium 3.3 mmol/L (3.5-5.1)
--- NOTE | 2019-03-03 13:28 | Family Medicine Progress Note ---
Date of Service March 03, 2019 Assessment & Plan (1) Acute on chronic diastolic (congestive) heart failure: Mr. Vernon is a 83 year old male with a past medical history of atrial fibrillation, BPH, prior duodenal ulcer, and hypertension who presented to [facility] with shortness of breath and a 20 pound weight gain. While being diuresed for a CHF exacerbation, he developed worsening SOB, a fever and new lung infiltrate overnight on 03/02. Sepsis secondary to healthcare associated pneumonia - pt developed a fever and worsening SOB on evening of 03/02 -> repeat CXR ordered and showed a developing left mid lung opacity concerning for pneumonia - patient meets SIRS criteria with temp of 38.7, tachycardia and pulmonary source of infection - bcx x2 drawn and pending - patient was started on cefepime and vancomycin (pending MRSA swab, can d/c if negative) - lactate drawn and normal at 1.3 - not currently on fluids due to hx of fluid overload & pt maintaining adequate PO intake. Consider starting if patient develops tachycardia/hypotension/elevated Cr Acute on chronic diastolic CHF - pt was initially undergoing treatment for acute diastolic CHF exacerbation - CT abdomen on admission: Small to moderate bilateral pleural effusions with basilar atelectatic change, Low volume ascites - seen by cardiology -> thank you for recommendations -> appears to be fluid overloaded with peripheral edema and ascites -> plan was to continue diuresis until creatinine increases or edema resolves -> limited ECHO ordered to reassess right sided pressures and TR -> nutrition consult - diuresis regimen included Lasix 40 mg IV daily (was receiving it BID prior to 03/03) and spironolactone 25 mg every morning -> this has been held due to new diagnosis of sepsis - ECHO on 02/27: EF 55-60% w/severely dilated RV and RA, severe central tricuspid regurg, moderate pulm HTN, dilated inferior vena cava, type 2 diastolic dysfunction and moderately dilated LA - improved -> pt is net negative 6.7L and has lost approx 7kg since admission - creatinine has remained stable at 0.91, although BUN has been increasing, and is 31 today Hypoxia - pt reports subjective improvement in symptoms, but he is still requiring 2L of oxygen (he is not normally on oxygen at home) - as patient improves from his pneumonia, will order a 2 step Cirrhosis of liver: - thank you to GI for consult. - unclear etiology, outpatient management - potentially from hepatic congestion - CT abdomen w/t IV contrast: Mild hepatic steatosis. Suspected hepatic cirrhosis. Low volume ascites. Portal veins patent. Stable 12 mm hypervascular focus within the left lobe of the liver - suggestive of a small shunt/vascular malformations. Diverticulosis. L Generalized body wall edema. Stable mild retro peritoneal lymphadenopathy. Prostatomegaly Atrial fibrillation: - heart rate appears well controlled - History of intraocular bleed, not on anticoagulation Rash of back: - acute, began on 02/28 - only present on pt's back. Appears improved today - is itchy - pt states he has a history of the same in the past and was related to an allergy - continue barrier cream - benadryl 12.5mg prn itch Constipation: - Colace and MiraLAX regimen increased per GI - had a BM on 03/02 after mag citrate BPH (benign prostatic hyperplasia): - On home Terazosin Hypertension: - was on HCTZ at home. This has been d/nikki in favor of lasix and spironolactone (both of which are now on hold given sepsis) Vascular malformation of liver: - Abdominal CT 12 mm hypervascular focus in liver concerning for small shunt versus vascular malformation - Per GI, could also explain shortness of breath if large enough and needs addressed at tertiary center by IR if other workup negative, however his SOB is likely explained by his volume status DVT prophylaxis: Encourage ambulation, history of GI bleed on anticoagulation, skin breakdown associated with venous stasis skin changes as such SCDs avoided especially given minimal benefit Code status: FULL Disposition: Pt lives at home with his and is independent with his care. Ambulates w/cane and walker. PT feels pt is at baseline. (2) Hypoxia: (3) Shortness of breath: (4) Cirrhosis of liver: (5) Atrial fibrillation: (6) Rash of back: (7) BPH (benign prostatic hyperplasia): (8) Hypertension: (9) Constipation: (10) Vascular malformation of liver: (11) DVT prophylaxis: (12) Ascites: (13) Fluid overload: (14) Fever: (15) Sepsis: (16) Pneumonia: Supervising Physician Co-Signing Physician Notes Resident Physician Supervision Note: I independently interviewed and examined the patient and verified the dupree history and physical, reviewed labs and image studies, discussed the case with the resident Dr. Tarmohamed and agree with the findings and care plan. Subjective Mr. Vernon reports that overnight, he started to feel unwell. He notes shortness of breath, and also had a fever of 38.7 degrees Celsius. He states he remains with a cough. He reports that yesterday afternoon, he had 3 "explosive" BMs after the bottle of mag citrate. Review of Systems Constitutional: + fever; no weakness and no anorexia Respiratory: + cough and + dyspnea; no wheezing Cardiovascular: + edema (improving, per patient); no chest pain and no palpita tions Gastrointestinal: no abdominal pain, no nausea and no vomiting Integumentary: + rash Physical Exam Constitutional: WD/WN, vitals as above Respiratory: normal respiratory effort and able to speak in complete sentences; no respiratory distress and does not use accessory muscles Auscultation: + rhonchi (over left lung) Cardiovascular: Rate/Rhythm: regular rate and regular rhythm Gastrointestinal (Abdomen): Inspection/Auscultation: + abdomen distended (less than yesterday) Percussion/Palpation: abdomen soft; abdomen nontender and no guarding Skin: + rash (erythematous papules noted to entire back. No rashes elsewhere) b/l legs with venous stasis changes, edema greatly improved from admission Psychiatric: A+Ox3, euthymic affect Results & Data Vital Signs (Past 12 Hours) Vital Signs Temp Pulse Resp BP Pulse Ox 03/03/19 07:25 87 18 93 03/03/19 07:00 36.5 C 77 18 100/56 L 93 03/03/19 03:45 36.9 C 03/03/19 01:48 88 18 86 L Resident Activity Tracking Resident Involvement: Resident Care Provided Care Provided: Adult Hospital Medicine (1) Fluid overload Hypervolemia type: unspecified Qualified Code(s): E87.70 - Fluid overload, unspecified
--- NOTE | 2019-03-03 14:25 | Pharmacy Report ---
Pharmacy Abx Initial Consult - Date of Service March 03, 2019 - Pharmacy Dosing Scope Date of Consult: 03/03/19 Consultation requested by: Dr. Ramos Pharmacy is consulted to initiate Vancomycin IV dosing therapy, order appropriate labs and adjust drug dose/frequency. - Subjective The patient is a 83 year old M admitted on 02/25/19 16:34. - Objective Height: 5 ft 9.5 in Weight: 83.1 kg Vital Signs (Past 12hrs): Vital Signs Temp Pulse Resp BP Pulse Ox 03/03/19 07:25 87 18 93 03/03/19 07:00 36.5 C 77 18 100/56 L 93 03/03/19 03:45 36.9 C Lab Results (24hrs): Laboratory Tests (24 Hours) 03/03/19 03/03/19 03/03/19 12:49 06:11 06:11 WBC 9.53 Neut # (Auto) 7.76 H Creatinine 0.91 1.01 Est Cr Clr Drug Dosing 60.3 54.3 Micro Results: 03/03/19 08:20 Aerobic Blood Culture - Pending Blood Anaerobic Blood Culture - Pending 03/03/19 08:14 Aerobic Blood Culture - Pending Blood Anaerobic Blood Culture - Pending - Risk Factors for Resistance * Current hospitalization > 5 days - Assessment & Plan Assessment 83 year old M admitted for acute on chronic CHF and now with Sepsis secondary to HAP. Vancomycin and Cefepime ordered. MRSA nasal swab pending. Blood cultures pending. Plan Vancomycin for treatment of HAP. Vancomycin IV * Estimated PK Parameters: Vd 0.7 L/kg, Panfilo 0.049 hr-1, t1/2 14 hr * Loading dose: 1750 mg (21 mg/kg) x1 dose this AM. * Maintenance dose: 1250 mg IV (15 mg/kg) every 18 hours * Goal trough level for HAP: 15 to 20 mcg/mL * Trough Vanco level ordered for 03/05 before dose at 1000. Pharmacy will continue to follow and will adjust dose/frequency as necessary. Thank you.
--- NOTE | 2019-03-03 15:03 | Cardiology Progress Note ---
Date of Service March 03, 2019 Assessment & Plan (1) Fluid overload: He presented fluid overload with peripheral edema and ascites. His kidney function is normal, however he was drinking a lot of fluid. He does have elevated pulmonary pressures and elevated right-sided pressures however I doubt that is a primary problem, unless pulmonary hypertension is a primary problem but several months ago he only had mild pulmonary hypertension by echo. My guess is that he has become fluid overloaded due to excessive intake and less output, by his description he is gained about 16 pounds in several months. I would recommend diuresis until either his creatinine increases or we eliminate his edema, I do not think he is there yet. His diuretics were decreased due to the possibility of sepsis, it appears that that is not the case and I would recommend increasing then to twice daily as soon as possible. He did have a repeat echocardiogram today, it is still not back to baseline but it seems to be a little bit better with regard to tricuspid regurgitation possibly pulmonary pressures and right ventricular dilatation than the one on admission. I would recommend ongoing diuresis. (2) Atrial fibrillation: He had a history of atrial flutter, for which we did an ablation and that worked for a number of years but he has been in atrial fibrillation for several years. He declines anticoagulation I discussed with him on several occasions. He is worried about losing his vision since he had the intraocular bleed in the past. His heart rate appears to be well controlled. (3) Edema: He presented with significant edema and ascites for reasons which are not completely clear. Renal function has remained good, he does have elevated right-sided pressures although by echocardiography several months ago he had only mild pulmonary hypertension. Those pressures remain elevated but it is still early in his treatment and I think based on his echocardiogram today that the pressures are somewhat improved, at least the tricuspid regurgitation is improved which should be pressure dependent. We have been able to diurese him quite well and his renal function remains normal. He does have a low albumin w hich could contribute to edema. I did ask that outside plant supervisor to see him to see whether he needs a nutritional supplement which might help with the edema and he has been started on a protein supplement. He also needs to curtail some fluid intake at home but he understands this. Subjective Events of the last 24 hours reviewed. Evidently he developed clinical evidence of pneumonia with a temperature and an infiltrate on chest x-ray, although his white count did not increase. Antibiotics were added, his diuretics were decreased and at this time he feels quite well although still not quite back to normal. He thinks that he has lost considerable fluid from his legs and his abdomen. He has not been walking today. He has had no lightheadedness or dizziness. Physical Exam Physical Exam: Constitutional: Alert, cooperative and in no distress. Pulmonary: Clear to auscultation bilaterally. Cardiac: Irregular rhythm with no murmur, gallop or rub. Abdomen: Soft, distended, nontender with normal bowel sounds. Extremities: +2 bilateral pretibial edema. Skin: No rash, ecchymoses or petechiae, signs of chronic venous stasis in his lower extremities. Results & Data Vital Signs (Past 12 Hours) Vital Signs Temp Pulse Resp BP Pulse Ox 03/03/19 14:36 82 18 96 03/03/19 07:25 87 18 93 03/03/19 07:00 36.5 C 77 18 100/56 L 93 03/03/19 03:45 36.9 C (1) Fluid overload Hypervolemia type: unspecified Qualified Code(s): E87.70 - Fluid overload, unspecified
--- NOTE | 2019-03-03 16:05 | Gastroenterology Progress Note ---
Date of Service March 03, 2019 Assessment & Plan (1) Ascites: cultures neg , cytology neg cirrhosis--unclear etiology, nothing acute to do shortness of breath--cardiology feels secondary to overall volume overload and patient drinks lot of fluid to keep hydrated. volume overaload--Na and fluid restriction and diruetics in effect per primary team. constipation--had bms today and today. Will cut back on miralax. ? pneumonia--per primary team. . . Subjective cc f/u ascies, constipation HPI Had fever o/n, cough, worsening shortness of breath, CXR possible pneumonia. He had two stools yesterday post mag citrate and 2 somewhat loose today. No abd pain. Review of Systems Respiratory: + dyspnea Cardiovascular: no chest pain Physical Exam Constitutional: WD/WN, vitals as above Respiratory: normal respiratory effort, lungs clear to auscultation Cardiovascular: Heart Sounds: normal S1 and normal S2 Gastrointestinal (Abdomen): pos bs, soft, moderate distension and tympany, no guarding nor rebound Psychiatric: A+Ox3, euthymic affect Results & Data Vital Signs (Past 12 Hours) Vital Signs Temp Pulse Resp BP Pulse Ox 03/03/19 15:23 36.8 C 68 18 111/71 93 03/03/19 14:36 82 18 96 03/03/19 07:25 87 18 93 03/03/19 07:00 36.5 C 77 18 100/56 L 93
[2019-03-03] MEDS ORDERED: POTASSIUM CHLORIDE 20 MEQ TABCR PO SCH (17:45)
[2019-03-03] MEDS: CYANOCOBALAMIN 500 MCG TABLET (VITAMIN B-12) PO SCH (21:17)
[2019-03-03] MEDS: TERAZOSIN HCL 5 MG CAP PO SCH (21:18)
[2019-03-03] MEDS ORDERED: VANCOMYCIN HCL 1,250 MG in SODIUM CHLORIDE 0.9% 250 ML IV SCH (22:00)
[2019-03-04] MEDS: LEVALBUTEROL HCL 0.63 MG/3 ML NEB NEB SCH ×3 (01:50→14:07)
[2019-03-04] MEDS: IPRATROPIUM BROMIDE NEB SOLN 0.02% 2.5 ML VIAL INH SCH ×3 (01:50→14:06)
[2019-03-04 07:35] LABS: Basophils # (auto) 0.02 K/uL (0-0.2); Basophils % (auto) 0.3 %; Eosinophils # (auto) 0.26 K/uL (0-0.5); Eosinophils % (auto) 4.3 %; Hematocrit (blood only) 34.9 % (42-52); Hemoglobin 11.1 g/dL (14.0-18.0); Immature Granulocytes # (auto) 0.01 K/uL (0.00-0.02); Immature Granulocytes % (auto) 0.2 %; Lymphocytes # (auto) 0.74 K/uL (1.2-3.4); Lymphocytes % (auto) 12.3 %; Mean Corpuscular Hgb Conc 31.8 g/dL (32-36); Mean Corpuscular Volume 94.8 fL (80-100); Mean Platelet Volume 9.6 fL (7.4-10.4); Monocytes # (auto) 0.54 K/uL (0.11-0.59); Monocytes % (auto) 8.9 %; Neutrophils # (auto) 4.47 K/uL (1.4-6.5); Platelet Count 131 K/uL (130-400); RDW Coefficient of Variation 16.2 % (11.5-14.5); RDW Standard Deviation 56.7 fL (36.4-46.3); Red Blood Count 3.68 M/uL (4.7-6.1); White Blood Count 6.04 K/uL (4.8-10.8)
[2019-03-04] MEDS: ASCORBIC ACID 500 MG TAB PO SCH (07:50)
[2019-03-04] MEDS: POLYETHYLENE (MIRALAX) 17 GM PACK PO SCH (07:51)
[2019-03-04] MEDS: DOCUSATE SODIUM 100 MG CAP PO SCH (07:51)
[2019-03-04 08:04] LABS: Albumin Level 2.9 gm/dl (3.4-5.0); BUN Creatinine Ratio 34.4 (10-20); Calcium 8.8 mg/dl (8.5-10.1); Creatinine Clr Calc Pharmacy 60.3 ml/min; Est GFR (African American) 88.8; Est GFR (Non-African American) 76.6; Potassium 3.9 mmol/L (3.5-5.1)
[2019-03-04 08:15] LABS: Albumin Globulin Ratio 0.7 (0.9-2); Bilirubin,Total 1.9 mg/dl (0.2-1); Total Protein 6.9 gm/dl (6.4-8.2)
[2019-03-04] MEDS: CEFEPIME 2,000 MG in SYRINGE 7.5 ML IV SCH (10:02)
--- NOTE | 2019-03-04 14:15 | Gastroenterology Progress Note ---
Date of Service March 04, 2019 Assessment & Plan (1) Ascites: cultures neg , cytology neg cirrhosis--unclear etiology, nothing acute to do shortness of breath--cardiology feels secondary to overall volume overload and patient was drinking lot of fluid to keep hydrated. volume overload--Na and fluid restriction and diruetics in effect per primary team. constipation--No stool today. Increase miralax back to 34 gm bid ? pneumonia--per primary team. . . Subjective cc f/u constipation, cirrhosis HPI NO stools today. Pt denies abd pain. Review of Systems Respiratory: + dyspnea improved today Cardiovascular: no chest pain Physical Exam Constitutional: WD/WN, vitals as above Respiratory: normal respiratory effort, lungs clear to auscultation Cardiovascular: Heart Sounds: normal S1 and normal S2 Gastrointestinal (Abdomen): pos bs, moderately distended and tympanitic, no guarding nor rebound Psychiatric: A+Ox3, euthymic affect Results & Data Vital Signs (Past 12 Hours) Vital Signs Temp Pulse Resp BP Pulse Ox 03/04/19 14:09 96 H 16 95 03/04/19 07:55 36.8 C 73 16 118/65 98 03/04/19 07:29 94 H 18 96
[2019-03-04] MEDS ORDERED: SPIRONOLACTONE 25 MG TAB PO ONE (14:58)
[2019-03-04] MEDS ORDERED: FUROSEMIDE 20 MG in SYRINGE 0 ML IV ONE (15:15)
--- NOTE | 2019-03-04 16:39 | Cardiology Progress Note ---
Date of Service March 04, 2019 Assessment & Plan (1) Fluid overload: He presented fluid overload with peripheral edema and ascites. His kidney function is normal, however he was drinking a lot of fluid. He does have elevated pulmonary pressures and elevated right-sided pressures however I doubt that is a primary problem, unless pulmonary hypertension is a primary problem but several months ago he only had mild pulmonary hypertension by echo. My guess is that he has become fluid overloaded due to excessive intake and less output, by his description he is gained about 16 pounds in several months. I would recommend diuresis until either his creatinine increases or we eliminate his edema, I do not think he is there yet. His diuretics were decreased due to the possibility of sepsis, it appears that that is not the case and I would recommend increasing then to twice daily as soon as possible. He did have a repeat echocardiogram, it is still not back to baseline but it seems to be a little bit better with regard to tricuspid regurgitation possibly pulmonary pressures and right ventricular dilatation than the one on admission. I would recommend ongoing diuresis. (2) Atrial fibrillation: He had a history of atrial flutter, for which we did an ablation and that worked for a number of years but he has been in atrial fibrillation for several years. He declines anticoagulation I discussed with him on several occasions. He is worried about losing his vision since he had the intraocular bleed in the past. His heart rate appears to be well controlled. (3) Edema: He presented with significant edema and ascites for reasons which are not completely clear. Renal function has remained good, he does have elevated right-sided pressures although by echocardiography several months ago he had only mild pulmonary hypertension. Those pressures remain elevated but it is still early in his treatment and I think based on his echocardiogram today that the pressures are somewhat improved, at least the tricuspid regurgitation is improved which should be pressure dependent. We have been able to diurese him quite well and his renal function remains normal. He does have a low albumin which could contribute to edema. I did ask the soda dry house operator to see him to see whether he needs a nutritional supplement which might help with the edema and he has been started on a protein supplement. He also needs to curtail some fluid intake at home but he understands this. Subjective He is feeling much better today. He is in good spirits, he is able to walk without much shortness of breath and feels that he can manage at home. He still has some abdominal distention and leg swelling but it is significantly. He is waiting for intravenous Lasix before he goes home. Physical Exam Physical Exam: Constitutional: Alert, cooperative and in no distress. Pulmonary: Clear to auscultation bilaterally. Cardiac: Irregular rhythm with no murmur, gallop or rub. Abdomen: Soft, nontender with normal bowel sounds. Abdominal distention with ascites is present. Extremities: +2 bilateral pretibial edema. Skin: No rash, ecchymoses or petechiae. Findings of chronic venous stasis in his legs Results & Data Vital Signs (Past 12 Hours) Vital Signs Temp Pulse Pulse Pulse Pulse Pulse Resp 03/04/19 15:22 36.8 C 54 L 96 H 16 03/04/19 14:50 89 85 82 03/04/19 14:09 96 H 16 03/04/19 07:55 36.8 C 73 16 03/04/19 07:29 94 H 18 Resp Resp Resp BP BP Pulse Ox Pulse Ox 03/04/19 15:22 118/65 109/71 95 03/04/19 14:50 20 20 16 90 03/04/19 14:09 95 03/04/19 07:55 118/65 98 03/04/19 07:29 96 Pulse Ox Pulse Ox 03/04/19 15:22 03/04/19 14:50 90 90 03/04/19 14:09 03/04/19 07:55 03/04/19 07:29 (1) Fluid overload Hypervolemia type: unspecified Qualified Code(s): E87.70 - Fluid overload, unspecified
--- NOTE | 2019-03-04 17:36 | Discharge Summary ---
Date of Service March 04, 2019 Admission HPI Per Admitting Provider Very pleasant 83-year-old male with a history of progressive shortness of breath weakness and lightheadedness. He was actually sent over to the ER from paracentesis due to dyspnea. He was given some Lasix and is sitting upright and feeling better overall with the acute breathing, but he notes that for the last several months he has had a gradual worsening of shortness of breath towards now very significant problem with exertion or with lying flat. Initially he describes it simply as in that, but then doubles back to notes that he wonders if it is related to his progressive increase in abdominal girth. When asking about if the 2 seem to correlate, he notes that as his abdomen is gotten bigger his shortness of breath is gotten worse, and when asking about how big his abdomen was 2 months ago, he notes it was significantly less than before, and notes that back around or New Year's he noted no swelling whatsoever. He has not had abdominal pain, fevers chills or sweats. He has gained to the better part of 20 pounds, which he notes is mostly attributable to abdominal and leg swelling. His leg swelling is worse. Fortunately he does still have an appetite. Principal Diagnosis CHF Pneumonia Discharge Exam Constitutional WD/WN, vitals as above Eyes PERRL, conjunctivae normal, anicteric sclerae ENMT external ear and nose normal, oropharynx normal Neck normal visual inspection and trachea midline Respiratory normal respiratory effort, lungs clear to auscultation able to speak in complete sentences; does not use accessory muscles Cardiovascular Rate/Rhythm: regular rate and regular rhythm Heart Sounds: normal S1 and normal S2 Gastrointestinal (Abdomen) Percussion/Palpation: abdomen soft; abdomen nontender and no guarding Skin no rashes, warm and dry + rash (erythematous papules noted to entire back. No rashes elsewhere) Neurologic PERRL, EOMI, accommodation nl, no face palsy, no dysarthria Psychiatric A+Ox3, euthymic affect Discharge Data Allergies Allergy/AdvReac Type Severity Reaction Status Date / Time Bactrim Allergy Unknown GI UPSET, Verified 05/12/18 09:28 FEVER, HEADACHE Cipro Allergy Unknown GI SYMPTOMS Verified 05/03/18 14:37 merbromin Allergy Unknown ALLERGIC Verified 02/25/19 13:29 TO MERCURO[place]ROME, RASH ciprofloxacin AdvReac Unknown GI SYMPTOMS Verified 02/25/19 13:29 sulfamethoxazole AdvReac Unknown GI UPSET, Verified 02/25/19 13:29 FEVER, HEADACHE trimethoprim AdvReac Unknown GI UPSET, Verified 02/25/19 13:29 FEVER, HEADACHE Consultations 02/25/19 15:25 ED Decision to Admit Stat 02/25/19 18:07 Consult Gastroenterology Routine 02/27/19 18:01 Consult Cardiology Routine Ordered Studies 02/26/19 08:40 CT abd pelvis IV con only Urgent 02/27/19 10:49 CT angio chest PE protocol Urgent Hospital Course (1) Acute on chronic diastolic (congestive) heart failure: Mr. Vernon is a 83 year old male with a past medical history of atrial fibrillation, BPH, prior duodenal ulcer, and hypertension who presented to [facility] with shortness of breath and a 20 pound weight gain. Pt was being admitted for a CHF Exacerbation. While being diuresed for a CHF exacerbation, he developed worsening SOB, a fever and new lung infiltrate overnight on 03/02. Pt was discharged on diuretics (Lasix, Aldactone) and Augmentin for pneumonia. Follow up in CHF Clinic, Cards, GI and PCP will be made for patient. Acute on chronic diastolic CHF 20lbs up from baseline, pt's target weight is around 181lbs which he is on discharge. Per cardiology we will hold HCTZ and start Lasix 40mg daily and Aldactone 25mg daily - follow up in CHF clinic will be arranged. Advised pt on low salt diet, fluid restriction (1200cc) and checking daily weights. Was able to ambulate without oxygen prior to discharge. Sepsis secondary to healthcare associated pneumonia Fever and worsening SOB on evening of 03/02 -> repeat CXR ordered and showed a developing left mid lung opacity concerning for pneumonia. Will discharge patient on Augmentin to complete a 7 day course of Abx. Blood cultures neg to date. Cirrhosis of liver: will follow up with GI as outpatient, might be a component of CHF. Atrial fibrillation: Declines anticoagulation due to history of intraocular bleed. Rash of back: Resolving, likely local reaction from bedding. managed with benadryl 12.5mg prn itch BPH (benign prostatic hyperplasia): c/w Terazosin on discharge. Hypertension: was on HCTZ at home. This has been d/nikki in favor of lasix and spironolactone. Vascular malformation of liver: Abdominal CT 12 mm hypervascular focus in liver concerning for small shunt versus vascular malformation. Incidental finding. Will have GI follow up. Discharge to home without additional needs. (2) Hypoxia: (3) Shortness of breath: (4) Cirrhosis of liver: (5) Atrial fibrillation: (6) Rash of back: (7) BPH (benign prostatic hyperplasia): (8) Hypertension: (9) Constipation: (10) Vascular malformation of liver: (11) DVT prophylaxis: (12) Ascites: (13) Fluid overload: (14) Fever: (15) Sepsis: (16) Pneumonia: Total Time Total Time Spent Total Time Spent (In Minutes): 44 Discharge Plan Discharge Items Patient Disposition: Home - Self-Care Reason For Visit: CHF EXACERBATION, POSSIBLE PERITONITIS Discharge Diagnosis: CHF Exacerbation Cirrhosis Pneumonia Discharge Goals: Improve disease control, Improve nutritional status and Learn about illness Activity: Per 'Additional Instructions' section Non-emergency contact: Primary Care Provider, [employer] Laboratory Technician and Welder Assembler Call non-emergency contact if: your symptoms worsen Follow-up/Referrals: Henrique Larios MD [Physician] - 03/16/19 1:00 pm (follow up appointment at your heart doctor office with the physician periodontal assistant Les they will get you scheduled with the CHF clinic) Jose J Antoine MD [Primary Care Provider] - 03/11/19 1:00 pm (follow up appointment at your primary care physician office with the physician periodontal assistant Angelica ) Roberto Arora [Physician] - 05/02/19 2:40 pm (follow up appointment with your stomach doctor) Diet: Low Sodium (2gm) Fluids: 1200ml (5 cups) Addtl Provider Instructions: You were admitted to the hospital for heart failure. Heart failure can occur if you drink too much fluid and eat too much salt. Information on heart failure will be printed for you on discharge. Please read this information carefully. We recommend checking your weights every day and sticking to a low salt diet (less than 1200mL). Information on how to maintain a low salt diet will be printed for you. We will place a referral for you to our heart failure clinic and we will arrange a follow up with our armored transport service manager. Please keep these appointments. We also recommend checking your weight every day. Today you are 82kg (181lbs), this is likely your ideal body weight. If you gain >3lbs in less than a 24hr period you should make an appointment with your primary care physician. You will also be discharged on two new medications to keep your water weight down, these medications are called Furosimide (Lasix) and Spironolactone (Aldactone). Please take these medications as prescribed. We advise you to stop taking your Hydrochlorothiazide. While in the hospital you developed what we believe is a pneumonia and were started on antibiotics. You will be discharged on an antibiotic called Augmentin. Please take this medication as prescribed. We also noticed on a CAT scan of your abdomen that your liver appears to be mildly cirrhotic. We are unsure of the cause of this cirrhosis. A follow up appointment with a Welder Assembler will be made for you. Prescriptions: New spironolactone 25 mg Tablet 25 mg PO QAM 30 Days Qty: 30 RF: 0 furosemide [Lasix] 40 mg tablet 40 mg PO DAILY Qty: 30 RF: 0 amoxicillin-pot clavulanate [Augmentin] 875-125 mg tablet 1 tab PO BID Qty: 11 RF: 0 Continued ascorbic acid (vitamin C) [Vitamin C] 1,000 mg Tablet 1 g PO UD RF: 0 terazosin 10 mg Capsule 10 mg PO HS RF: 0 cyanocobalamin (vitamin B-12) 1,000 mcg Capsule 1,000 mcg PO HS RF: 0 acetaminophen [Tylenol Extra Strength] 500 mg Tablet 1,000 mg PO Q6H PRN (Reason: Pain) RF: 0 magnesium hydroxide [Milk of Magnesia] 400 mg/5 mL Suspension 15 ml PO DAILY PRN (Reason: Constipation) RF: 0 Discontinued hydrochlorothiazide 25 mg Tablet 25 mg PO QPM RF: 0 Stand-Alone Forms: [facility] [employer] [facility]/Other Patient Handouts: Amoxicillin Trihydrate Clavulanate Potassium Oral tablet, Furosemide Oral tablet, Spironolactone Oral tablet, Choices Low Salt, Heart Failure Diet Changes, Diet Low Salt Dc Discharge Orders: Discharge Order (Routine); Ordered 03/04/19 Ordered By: Wellington Wilson Admission Data Admit Date/Time: 02/25/19 16:34 Attending Provider: Krysta Dillard Admit Provider: Juan Cheung Primary Care Provider: Jose J Antoine V. Other Providers: Roni Bright ; Roberto Arora ; Guicho Nunez ; Juan Cheung Service: Medical Other Interventions: Discharge Summary Assessment (RN) Last Done: 03/04/19 15:22 DC Date/Time DO NOT enter until pt leaves facility: 03/04/19 16:55 Supervising Physician Co-Signing Physician Notes Resident Physician Supervision Note: I independently interviewed and examined the patient and verified the dupree history and physical, reviewed labs and image studies, discussed the case with the resident Dr. Wilson and agree with the findings and care plan. Time spent in discharge 35 min Resident Activity Tracking Resident Involvement: Resident Care Provided Care Provided: Adult Hospital Medicine
[2019-03-04] MEDS ORDERED: POLYETHYLENE (MIRALAX) 17 GM PACK PO SCH (21:00)
[2019-03-05] MEDS ORDERED: VANCOMYCIN TROUGH ONE (09:30)
== END 2019-03-04 16:55 | disposition home or self-care (01) | DRG 871 ==
LOC: ED 13:02 → SUATTDRO 16:34 → 2W 16:34 → 4W 02-28 21:54

== ENCOUNTER 2020-03-02 10:46 | Inpatient (IN) ==
--- NOTE | 2020-03-02 11:23 | Emergency Department Note ---
Impression & Plan Acute dyspnea, Abdominal ascites, CHF exacerbation, Leg swelling ED Provider Note Provider: Chris Balderrama MD DATE OF SERVICE: 03/02/2020 CHIEF COMPLAINT: Shortness of breath, swelling HISTORY OF PRESENT ILLNESS: Patient is a 84-year-old gentleman with a history of atrial fibrillation, aortic stenosis, cirrhosis, hypertension, chronic lower extremity edema presenting today stating that over the last week or 2 he has had worsening fluid retention and swelling in his legs now proceeding to his abdomen with some shortness of breath. Patient denies any chest pain or fevers. States he has been following with a heart failure clinic and has been on Lasix. States that he has increased his Lasix for several days from 20 to 40 mg as directed as his weight at home is been trending up from 170 to 174lbs yesterday. Patient states he does seem to be urinating more and denies any increased salt or fluid intake. Patient states both lower extremities are swollen more than his chronic baseline. Patient states he has been somewhat more short of breath with moving around but denies any falls or near syncopal episodes. Patient states is not currently on full anticoagulation due to history of intraocular bleed. REVIEW OF SYSTEMS: A total of 10 review of systems was obtained and negative except as stated above in the HPI. PAST MEDICAL HISTORY: As noted above MEDICATIONS: Reviewed his medication list which includes Lasix, spironolactone, terra Zosyn, DuoNeb, albuterol as needed SOCIAL HISTORY: Former smoker. and lives at home PHYSICAL EXAM: GENERAL: alert and oriented in no acute distress on stretcher but does appear somewhat short of breath with some increased work of breathing Head: normocephalic and atraumatic EYES: No injection, discharge or icterus. NECK: Trachea midline. Supple. ENT: Mucous membranes pink and moist. LUNGS: Airway patent. No retractions but mild increased work of breathing. Breath sounds with scattered wheeze. Diminished bases. HEART: Iregular rate and rhythm. No chest wall tenderness, moderate JVD appreciated. ABDOMEN: Soft nontender but moderately distended. No guarding. SKIN: Acyanotic, warm, dry, without rashes EXTREMITIES: Chronic lower extremity edematous changes 2+ edema fairly symmetric bilaterally. NEUROLOGICAL: No focal deficits. No aphasia. No facial droop or slurred speech. EK bpm appears to be in a junctional rhythm at this time with bifascicular block occasional PVCs. Do not see acute ST segment elevation. Diffuse precordial T wave inversions are noted. Compared to February [id number] at that time he was in atrial fibrillation and currently he appears to be in a junctional rhythm (as I do not truly appreciate P waves, the regularity of the QRS complexes march out leans against a atrial fib although I gather it could represent a fine atrial flutter and irregular 4-1 block) CONTINUOUS CARDIAC MONITORING: was ordered and showed a heart rate of 72 bpm in sinus rhythm PVCs Patient's hypertension was referred to the hospitalist HOSPITAL COURSE: 1055 Patient was first seen and H&P performed. 1203 Patient reassessed and updated. Patient was updated with the results. A quick informal bedside ultrasound shows evidence of ascites across the abdomen. 1216 discussed with the [facility] [place] Patient's laboratory studies and imaging reviewed. Differential includes Reactive airway disease, pneumonia, pneumothorax, COPD, CHF, infections, cardiac ischemia, pulmonary embolism, musculoskeletal, gastrointestinal, cirrhosis, as well as other pathologies. IMPRESSION/MEDICAL DECISION MAKING: Patient presentation is concerning for increased fluid edema causing shortness of breath. Question whether this is fluid overload from CHF or heart failure versus possibly some abdominal ascites. Does not have significant terence tenderness fever I doubt an acute infectious cause. Doubt cellulitis. Given the symmetric lower extremity edema and swelling again this leans against an acute bilateral cellulitis or DVT. Low suspicion for PE. Patient not currently anticoagulated with a history of atrial fib/flutter patient is aware of the risks related to prior bleeding issues intraocularly. Doubt this acute ACS. Doubt acute dissection. Laboratory studies show reasonable kidney function without leukocytosis. No troponin elevation. Chest x-ray per radiology interpretation my review shows evidence of right pleural effusion question consolidation but clinically this is likely more effusion related abdominal ascites. Does have a full abdomen. Doubt this is infected. Given an additional dose of Lasix although low suspicion this is entirely heart failure more of an abdominal ascites and fluid overload from that perspective. Given this feel that GI consultation and drainage would be in order. Discussed with patient feel further observation in the hospital would be ideal in the current state and hospice contacted. DIAGNOSIS: Shortness of breath, abdominal ascites DISPOSITION: Hospitalist will evaluate Patient was agreeable with this plan. 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 Chronic cough (Chronic) Chronic obstructive pulmonary disease Duodenal ulcer (Resolved) HX Enlarged prostate with lower urinary tract symptoms (LUTS) (Acute) History of duodenal ulcer History of edema History of gross hematuria History of hepatitis History of retinal hemorrhage Hypertension (Resolved) Laceration of scalp with delay in treatment (Resolved) Left knee DJD (Acute) Liver cirrhosis (Acute) Macular degeneration (Acute) Pneumonia ON ANTIBIOTICS CURRENTLY X 5 DAYS THRU PCP Positive JESSICA (antinuclear antibody) Pulmonary hypertension Retinal hemorrhage Right-sided heart failure Sleep apnea MILD-NO DEVICE RX'D Traumatic open wound of right lower leg with delayed healing (Resolved) Varicose vein of leg (Acute) Vascular malformation of liver Surgical History History of cardiac radiofrequency ablation S/P History of colonoscopy History of esophagogastroduodenoscopy (EGD) History of gastrostomy History of total knee replacement R/L Hx of transurethral resection of prostate Family History Father , Age 38 No problems noted. Mother , Age 34 No problems noted. 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 Other Information That Helps Us Care for You: No Feels Safe at Home: Yes Safety Concerns: Feels Safe At This Time Smoking Status: Former smoker Tobacco Type: pipe ; Do You Dip or Chew Tobacco: No ; Number of Years Since Quit: 13 ; Second Hand Exposure: No ; Tobacco Cessat ion Education Requested by Patient: No Hx Alcohol Use: Yes Alcohol type: wine Alcohol Intake Frequency: Daily Alcohol Intake Frequency Comment: 2 glasses of wine with dinner every day Hx Substance Use: No Seatbelt Use: always Allergies Allergies Allergy/AdvReac Type Severity Reaction Status Date / Time Bactrim Allergy Unknown GI UPSET, Verified 05/12/18 09:28 FEVER, HEADACHE Cipro Allergy Unknown GI SYMPTOMS Verified 05/03/18 14:37 merbromin Allergy Unknown ALLERGIC Verified 03/02/20 11:25 TO MERCUROCHROME, RASH ciprofloxacin AdvReac Unknown GI SYMPTOMS Verified 03/02/20 11:25 mercury (elemental) AdvReac Unknown Verified 03/02/20 11:25 sulfamethoxazole AdvReac Unknown GI UPSET, Verified 03/02/20 11:25 FEVER, HEADACHE trimethoprim AdvReac Unknown GI UPSET, Verified 03/02/20 11:25 FEVER, HEADACHE Home Meds Home Medications Medication Instructions Recorded Confirmed cyanocobalamin (vitamin B-12) 1,000 mcg PO HS 04/22/19 03/02/20 1,000 mcg capsule ascorbic acid (vitamin C) 1,000 mg 1 g PO DAILY PRN tab 10/27/19 03/02/20 tablet spironolactone 25 mg PO QAM 03/02/20 03/02/20 Previous Rx's Medication Instructions Recorded CPAP Machine #1 ea 10/19/19 albuterol sulfate 90 mcg/actuation 2 puffs INH Q6H PRN #18 gm 10/19/19 aerosol inhaler miscellaneous medical supply #1 ea 10/19/19 nebulizers #1 ea 10/19/19 furosemide 20 mg tablet 40 mg PO DAILY PRN #180 tab 12/22/19 terazosin 10 mg capsule 10 mg PO HS #90 cap 01/09/20 Results & Data (ED) Vital Signs Vital Signs - 24 hr 03/02/20 10:49 03/02/20 10:57 03/02/20 11:12 Temperature 36.5 C Temperature Source Oral Pulse Rate 68 69 Pulse Rate [Apical] Pulse Rate from SpO2 Sensor 69 Respiratory Rate 20 19 Respiratory Effort / Characteristics Non-Labored Spontaneous Non-Labored Spontaneous Normal for Patient Respiratory Depth Normal Normal Respiratory Pattern Regular Blood Pressure 140/77 Blood Pressure [Left Arm] Blood Pressure Mean 98 Blood Pressure Mean [Left Arm] Blood Pressure Position [Left Arm] Pulse Oximetry 95 95 94 Oxygen Delivery Method Room Air Room Air Room Air Sepsis Recent Fever Within 48 Hours No Sepsis New/Unexplained Change in Mental Status No Sepsis Action Taken by Nursing No Action Required 03/02/20 11:13 03/02/20 11:15 03/02/20 11:30 Temperature Temperature Source Pulse Rate 68 70 68 Pulse Rate [Apical] 69 69 Pulse Rate from SpO2 Sensor 65 68 70 Respiratory Rate 17 23 21 Respiratory Effort / Characteristics Non-Labored Spontaneous Normal for Patient Non-Labored Spontaneous Normal for Patient Respiratory Depth Normal Normal Respiratory Pattern Regular Regular Blood Pressure 120/68 119/84 Blood Pressure [Left Arm] 120/68 119/84 Blood Pressure Mean 85 102 Blood Pressure Mean [Left Arm] 85 95 Blood Pressure Position [Left Arm] Lying Lying Pulse Oximetry 94 94 94 Oxygen Delivery Method Room Air Room Air Room Air Sepsis Recent Fever Within 48 Hours Sepsis New/Unexplained Change in Mental Status Sepsis Action Taken by Nursing 03/02/20 11:45 03/02/20 12:00 03/02/20 12:15 Temperature Temperature Source Pulse Rate 68 67 68 Pulse Rate [Apical] Pulse Rate from SpO2 Sensor 70 68 67 Respiratory Rate 20 22 19 Respiratory Effort / Characteristics Respiratory Depth Respiratory Pattern Blood Pressure 137/80 Blood Pressure [Left Arm] Blood Pressure Mean 93 Blood Pressure Mean [Left Arm] Blood Pressure Position [Left Arm] Pulse Oximetry 94 95 94 Oxygen Delivery Method Room Air Room Air Room Air Sepsis Recent Fever Within 48 Hours Sepsis New/Unexplained Change in Mental Status Sepsis Action Taken by Nursing 03/02/20 12:30 03/02/20 12:45 03/02/20 13:00 Temperature Temperature Source Pulse Rate 68 83 68 Pulse Rate [Apical] Pulse Rate from SpO2 Sensor 75 68 69 Respiratory Rate 22 20 18 Respiratory Effort / Characteristics Respiratory Depth Respiratory Pattern Blood Pressure 127/71 Blood Pressure [Left Arm] Blood Pressure Mean 100 Blood Pressure Mean [Left Arm] Blood Pressure Position [Left Arm] Pulse Oximetry 94 95 93 Oxygen Delivery Method Room Air Room Air Room Air Sepsis Recent Fever Within 48 Hours Sepsis New/Unexplained Change in Mental Status Sepsis Action Taken by Nursing 03/02/20 13:01 03/02/20 13:15 03/02/20 13:30 Temperature Temperature Source Pulse Rate 68 68 90 Pulse Rate [Apical] Pulse Rate from SpO2 Sensor 72 67 71 Respiratory Rate 23 21 22 Respiratory Effort / Characteristics Respiratory Depth Respiratory Pattern Blood Pressure 135/72 Blood Pressure [Left Arm] Blood Pressure Mean 91 Blood Pressure Mean [Left Arm] Blood Pressure Position [Left Arm] Pulse Oximetry 92 94 90 Oxygen Delivery Method Room Air Room Air Room Air Sepsis Recent Fever Within 48 Hours Sepsis New/Unexplained Change in Mental Status Sepsis Action Taken by Nursing 03/02/20 13:31 03/02/20 13:46 Temperature 36.5 C Temperature Source Oral Pulse Rate 69 69 Pulse Rate [Apical] Pulse Rate from SpO2 Sensor 68 Respiratory Rate 20 20 Respiratory Effort / Characteristics Respiratory Depth Respiratory Pattern Blood Pressure 134/69 134/69 Blood Pressure [Left Arm] Blood Pressure Mean 92 Blood Pressure Mean [Left Arm] Blood Pressure Position [Left Arm] Pulse Oximetry 92 92 Oxygen Delivery Method Room Air Room Air Sepsis Recent Fever Within 48 Hours Sepsis New/Unexplained Change in Mental Status Sepsis Action Taken by Nursing Laboratory Data Result diagrams: 03/02/20 11:10 03/02/20 11:10 Lab Results 03/02/20 03/02/20 03/02/20 Range/Units 11:10 11:10 11:10 WBC 3.98 L (4.8-10.8) K/uL RBC 3.84 L (4.7-6.1) M/uL Hgb 11.5 L (14.0-18.0) g/dL Hct 36.0 L (42-52) % MCV 93.8 (80-100) fL MCH 29.9 (25-34) pg MCHC 31.9 L (32-36) g/dL RDW Std Deviation 55.2 H (36.4-46.3) fL RDW Coeff of Chel 16.0 H (11.5-14.5) % Plt Count 164 (130-400) K/uL MPV 9.5 (7.4-10.4) fL Immature Gran % (Auto) 0.3 % Neut % (Auto) 62.4 % Lymph % (Auto) 19.6 % [place] % (Auto) 10.6 % Eos % (Auto) 5.8 % Baso % (Auto) 1.3 % Immature Gran # (Auto) 0.01 (0.00-0.02) K/uL Neut # (Auto) 2.49 (1.4-6.5) K/uL Lymph # (Auto) 0.78 L (1.2-3.4) K/uL [place] # (Auto) 0.42 (0.11-0.59) K/uL Eos # (Auto) 0.23 (0-0.5) K/uL Baso # (Auto) 0.05 (0-0.2) K/uL PT 14.0 H (9.0-12.0) Seconds INR 1.3 H (0.9-1.1) Sodium 137 (136-145) mmol/L Potassium 4.0 (3.5-5.1) mmol/L Chloride 101 (98-107) mmol/L Carbon Dioxide 32 (21-32) mmol/L Anion Gap 4.0 (3-11) BUN 19 H (7-18) mg/dl Creatinine 1.05 (0.6-1.4) mg/dl Est Cr Clr Drug Dosing Not Reportable Est GFR ( Amer) 74.1 Est GFR (Non-Af Amer) 64.0 BUN/Creatinine Ratio 17.8 (10-20) Glucose 117 H (70-99) mg/dl Calcium 8.5 (8.5-10.1) mg/dl Magnesium 2.5 H (1.8-2.4) mg/dl Total Bilirubin 2.0 H (0.2-1) mg/dl AST 33 (15-37) U/L ALT 22 (12-78) U/L Alkaline Phosphatase 249 H (45-117) U/L Lactate Dehydrogenase (87-241) U/L Troponin I 0.017 (0-0.045) ng/ml NT-Pro-B Natriuret Pep 2228 H (0-1800) pg/ml Total Protein 7.6 (6.4-8.2) gm/dl Albumin 3.2 L (3.4-5.0) gm/dl Globulin 4.4 H (2.5-4.0) gm/dl Albumin/Globulin Ratio 0.7 L (0.9-2) Vitamin B12 (211-911) pg/ml Folate (>5.38) ng/ml 03/02/20 03/02/20 03/02/20 Range/Units 13:42 13:42 13:42 WBC (4.8-10.8) K/uL RBC (4.7-6.1) M/uL Hgb (14.0-18.0) g/dL Hct (42-52) % MCV (80-100) fL MCH (25-34) pg MCHC (32-36) g/dL RDW Std Deviation (36.4-46.3) fL RDW Coeff of Chel (11.5-14.5) % Plt Count (130-400) K/uL MPV (7.4-10.4) fL Immature Gran % (Auto) % Neut % (Auto) % Lymph % (Auto) % [place] % (Auto) % Eos % (Auto) % Baso % (Auto) % Immature Gran # (Auto) (0.00-0.02) K/uL Neut # (Auto) (1.4-6.5) K/uL Lymph # (Auto) (1.2-3.4) K/uL [place] # (Auto) (0.11-0.59) K/uL Eos # (Auto) (0-0.5) K/uL Baso # (Auto) (0-0.2) K/uL PT (9.0-12.0) Seconds INR (0.9-1.1) Sodium (136-145) mmol/L Potassium (3.5-5.1) mmol/L Chloride (98-107) mmol/L Carbon Dioxide (21-32) mmol/L Anion Gap (3-11) BUN (7-18) mg/dl Creatinine (0.6-1.4) mg/dl Est Cr Clr Drug Dosing Est GFR ( Amer) Est GFR (Non-Af Amer) BUN/Creatinine Ratio (10-20) Glucose (70-99) mg/dl Calcium (8.5-10.1) mg/dl Magnesium (1.8-2.4) mg/dl Total Bilirubin (0.2-1) mg/dl AST (15-37) U/L ALT (12-78) U/L Alkaline Phosphatase (45-117) U/L Lactate Dehydrogenase 231 (87-241) U/L Troponin I (0-0.045) ng/ml NT-Pro-B Natriuret Pep (0-1800) pg/ml Total Protein (6.4-8.2) gm/dl Albumin (3.4-5.0) gm/dl Globulin (2.5-4.0) gm/dl Albumin/Globulin Ratio (0.9-2) Vitamin B12 1436 H (211-911) pg/ml Folate 9.98 (>5.38) ng/ml Administered Medications Discontinued Medications Furosemide (Lasix) 40 mg IV NOW STA Stop: 03/02/20 12:17 Last Admin: 03/02/20 12:43 Dose: 40 mg Documented by: [id number] Discharge Plan Visit Data *Final* Discharge Date/Time: 03/02/20 13:46 Chief Complaint: Shortness of Breath/Dyspnea Stated Complaint: SOB, WEAKNESSS IN LEGS ED Provider: Chris Balderrama Discharge Problem: Acute dyspnea, Abdominal ascites, CHF exacerbation, Leg swelling Patient Disposition: Admitted As Inpatient Discharge Instructions Interventions: ED Discharge Assessment Last Done: 03/02/20 13:46 Discharge Problem: Abdominal ascites Qualifiers: Ascites type: other type Qualified Code(s): R18.8 - Other ascites CHF exacerbation Qualifiers: Heart failure type: unspecified Qualified Code(s): I50.9 - Heart failure, unspecified
[2020-03-02 11:24] LABS: Basophils # (auto) 0.05 K/uL (0-0.2); Basophils % (auto) 1.3 %; Eosinophils # (auto) 0.23 K/uL (0-0.5); Eosinophils % (auto) 5.8 %; Hemoglobin 11.5 g/dL (14.0-18.0); Immature Granulocytes # (auto) 0.01 K/uL (0.00-0.02); Immature Granulocytes % (auto) 0.3 %; Lymphocytes # (auto) 0.78 K/uL (1.2-3.4); Lymphocytes % (auto) 19.6 %; Mean Corpuscular Hemoglobin 29.9 pg (25-34); Mean Corpuscular Hgb Conc 31.9 g/dL (32-36); Mean Corpuscular Volume 93.8 fL (80-100); Mean Platelet Volume 9.5 fL (7.4-10.4); Monocytes # (auto) 0.42 K/uL (0.11-0.59); Monocytes % (auto) 10.6 %; Neutrophils # (auto) 2.49 K/uL (1.4-6.5); Neutrophils % (auto) 62.4 %; Platelet Count 164 K/uL (130-400); RDW Standard Deviation 55.2 fL (36.4-46.3); Red Blood Count 3.84 M/uL (4.7-6.1); White Blood Count 3.98 K/uL (4.8-10.8)
--- NOTE | 2020-03-02 11:28 | XRay Report ---
SINGLE VIEW CHEST CLINICAL HISTORY: Dyspnea. FINDINGS: An AP, portable, upright chest radiograph is compared to study dated 06/24/2019 and correlat ed with chest CT dated 07/06/2019. The examination is degraded by portable technique and apical lordot ic positioning. The heart is enlarged noting atherosclerotic calcification of the thoracic aorta. The pulmonary vasculature is noncongested. There is a small right pleural effusion with right basilar co nsolidation. The left lung appears clear. No pneumothorax is seen. The skeletal structures are osteop enic. The bony thorax is grossly intact. Degenerative change is noted in the shoulders and thoracic s pine. IMPRESSION: 1. Cardiomegaly without radiographic evidence of congestive failure. 2. Right pleural effusion with right basilar consolidation. This could represent atelectasis and/or p neumonia/aspiration pneumonitis. Clinical correlation will be required and radiographic follow-up to resolution is recommended. ACT 112: Negative or not required by law. Electronically signed by: Braulio Villalobos M.D. 03/02/2020 11:27 AM
[2020-03-02 11:32] LABS: INR 1.3 (0.9-1.1)
[2020-03-02 11:39] LABS: Alanine Aminotransferase 22 U/L (12-78); Albumin Level 3.2 gm/dl (3.4-5.0); Aspartate Aminotransferase 33 U/L (15-37); BUN Creatinine Ratio 17.8 (10-20); Blood Urea Nitrogen 19 mg/dl (7-18); Calcium 8.5 mg/dl (8.5-10.1); Carbon Dioxide 32 mmol/L (21-32); Chloride 101 mmol/L (98-107); Est GFR (African American) 74.1; Glucose 117 mg/dl (70-99); Magnesium 2.5 mg/dl (1.8-2.4); Sodium 137 mmol/L (136-145)
[2020-03-02 11:44] LABS: Albumin Globulin Ratio 0.7 (0.9-2); Alkaline Phosphatase 249 U/L (45-117); Globulin 4.4 gm/dl (2.5-4.0); NT Pro B Type Natriuretic Pept 2228 pg/ml (0-1800); Total Protein 7.6 gm/dl (6.4-8.2); Troponin I 0.017 ng/ml (0-0.045)
[2020-03-02] MEDS ORDERED: FUROSEMIDE 40 MG/4 ML VIAL IV STA (12:16)
--- NOTE | 2020-03-02 12:24 | History & Physical Report ---
Date of Service March 02, 2020 Assessment & Plan (1) Ascites: This patient is an 84-year-old male with a history of chronic combined systolic and diastolic CHF, cirrhosis of the liver, severe COPD, YURIDIA not tolerant of CPAP, pulmonary hypertension, chronic atrial fibrillation not on anticoagulation, HTN, BPH, mild-moderate aortic stenosis, and prior GI bleed, who presents to the ER with progressively worsening shortness of breath and weight gain as well as abdominal distention. He had his Lasix increased by the [facility] [place] 3 days ago to 40 mg once daily up from 20 mg. He has gained at least 4 pounds over the last few days and the shortness of breath got much worse today which prompted his visit to the ER. ER physician performed a bedside ultrasound and found a lot of ascites and right-sided pleural effusion. The patient denies any abdominal pain, no fevers, no changes in bowel habits and he is moving his bowels daily. He denies any lower extremity swelling. Denies nausea/vomiting/diarrhea. Patient with known CHF and cirrhosis, likely a combination of the ascites and abdominal distention causing dyspnea as well as the pleural effusion and acute CHF. Albumin is only mildly low at 3.2 -Admit to medical floor with telemetry for arrhythmia monitoring -Set up for paracentesis with ultrasound guidance through radiology for today -Will give albumin with Lasix after paracentesis for this evening and then Lasix 40 mg IV every 12 hours -Continue home spironolactone 25 mg daily and if blood pressure will tolerate, increase to 25 mg twice daily -Will check ascites fluid studies although do not suspect SBP with no abdominal pain, no leukocytosis, no fevers -Low-sodium diet, fluid restriction -Needs cessation of alcohol use -Has declined follow-up with GI in the past for his cirrhosis (2) Pleural effusion: -Secondary to acute on chronic combined systolic and diastolic CHF as well as from ascites -Likely cause of his dyspnea in addition to significant abdominal distention -Follow with imaging of the chest periodically and follow clinically (3) Chronic combined systolic (congestive) and diastolic (congestive) heart failure: Follows with CHF clinic Here with acute on chronic combined systolic and diastolic CHF proBNP elevated 2228, with right-sided pleural effusion With right-sided heart failure, preserved EF, pulmonary hypertension, severe RV dilatation with normal systolic function on echo from 03/16 -Dry weight is 167 pounds as per CHF clinic records -Diuresing with IV Lasix as above along with paracentesis -Follow daily weights, strict I's and O's, low-sodium diet, fluid restrict to 1500 mL's per day -If BP can tolerate, would increase spironolactone to twice daily, but will await after paracentesis to ensure he is not dropping his blood pressure too low (4) Liver cirrhosis: Unknown etiology, does drink wine on a daily basis and also with right- sided heart failure which may be contributing -With ascites as above INR mildly elevated at 1.3, platelets are low normal at 164, with some leukopenia and mild anemia, elevated alkaline phosphatase consistent with previous, elevated total bilirubin at 2.0 stable from previous -Follow daily CBC, LFTs, INR -Again, has declined GI follow-up in the past On liver imaging from last year, he has some sort of likely vascular abnormality in the liver, but no tumor (5) Atrial fibrillation: With permanent atrial fibrillation, with a history of atrial flutter ablation many years ago Not on anticoagulation at his discretion due to history of retinal hemorrhage and GI bleeding -Follows with Dr. Larios of cardiology -Is not on any AV frances blocking agents and is rate controlled -Follow on telemetry (6) Pulmonary hypertension: As above, moderate as noted on echo (7) Chronic obstructive pulmonary disease: Severe as noted on PFTs and recent pulmonary notes No acute exacerbation -Continue home bronchodilator PRN (8) Aortic stenosis, mild: -Noted (9) Obstructive sleep apnea syndrome: Had a CPAP but is not using as he is intolerant of it (10) HTN (hypertension), benign: Blood pressures are controlled -Continue diuretics, also on terazosin for prostate (11) Enlarged prostate with lower urinary tract symptoms (LUTS): Continue terazosin no acute issues (12) DVT prophylaxis: SCDs only, having paracentesis-avoid blood thinners, patient also hesitant about being on blood thinners due to previous retinal hemorrhage Disposition-admit to medical floor with telemetry, expected least a 2 midnight stay for continued diuresis and monitoring for recurrent ascites after paracentesis DNR/DNI as per discussion with patient His , Sharri, would be his HCPOA History of Present Illness Chief Complaint: Shortness of breath, abdominal distention Primary Care Provider: Jose J Antoine MD This patient is an 84-year-old male with a history of chronic combined systolic and diastolic CHF, cirrhosis of the liver, severe COPD, YURIDIA not tolerant of CPAP, pulmonary hypertension, chronic atrial fibrillation not on anticoagulation, HTN, BPH, mild-moderate aortic stenosis, and prior GI bleed, who presents to the ER with progressively worsening shortness of breath and weight gain as well as abdominal distention. He had his Lasix increased by the [facility] [place] 3 days ago to 40 mg once daily up from 20 mg. He has gained at least 4 pounds over the last few days and the shortness of breath got much worse today which prompted his visit to the ER. ER physician performed a bedside ultrasound and found a lot of ascites and right-sided pleural effusion. The patient denies any abdominal pain, no fevers, no changes in bowel habits and he is moving his bowels daily. He denies any lower extremity swelling. Denies nausea/vomiting/diarrhea. He denies any chest pains. He has been feeling a little bit lightheaded. He has never had a paracentesis before. He continues to drink 2 glasses of wine every day and has no history of alcohol withdrawal. He has previously declined follow-up with gastroenterology for his cirrhosis. He is maintained on Lasix and spironolactone. He will be admitted for new onset ascites, acute on chronic combined systolic and diastolic CHF, and shortness of breath. Allergies Allergy/AdvReac Type Severity Reaction Status Date / Time Bactrim Allergy Unknown GI UPSET, Verified 05/12/18 09:28 FEVER, HEADACHE Cipro Allergy Unknown GI SYMPTOMS Verified 05/03/18 14:37 merbromin Allergy Unknown ALLERGIC Verified 03/02/20 11:25 TO MERCUROCHROME, RASH ciprofloxacin AdvReac Unknown GI SYMPTOMS Verified 03/02/20 11:25 mercury (elemental) AdvReac Unknown Verified 03/02/20 11:25 sulfamethoxazole AdvReac Unknown GI UPSET, Verified 03/02/20 11:25 FEVER, HEADACHE trimethoprim AdvReac Unknown GI UPSET, Verified 03/02/20 11:25 FEVER, HEADACHE Home Medications Home Medications Medication Instructions Recorded Confirmed Type cyanocobalamin (vitamin B-12) 1,000 mcg PO HS 04/22/19 03/02/20 History 1,000 mcg capsule CPAP Machine #1 ea 10/19/19 12/19/19 Rx albuterol sulfate 90 mcg/actuation 2 puffs INH Q6H PRN #18 gm 10/19/19 03/02/20 Rx aerosol inhaler miscellaneous medical supply #1 ea 10/19/19 12/19/19 Rx nebulizers #1 ea 10/19/19 12/19/19 Rx ascorbic acid (vitamin C) 1,000 mg 1 g PO DAILY PRN tab 10/27/19 03/02/20 History tablet furosemide 20 mg tablet 40 mg PO DAILY PRN #180 tab 12/22/19 03/02/20 Rx terazosin 10 mg capsule 10 mg PO HS #90 cap 01/09/20 03/02/20 Rx spironolactone 25 mg PO QAM 03/02/20 03/02/20 History 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 Chronic cough (Chronic) Chronic obstructive pulmonary disease Duodenal ulcer (Resolved) HX Enlarged prostate with lower urinary tract symptoms (LUTS) (Acute) History of duodenal ulcer History of edema History of gross hematuria History of hepatitis History of retinal hemorrhage Hypertension (Resolved) Laceration of scalp with delay in treatment (Resolved) Left knee DJD (Acute) Liver cirrhosis (Acute) Macular degeneration (Acute) Pneumonia ON ANTIBIOTICS CURRENTLY X 5 DAYS THRU PCP Positive JESSICA (antinuclear antibody) Pulmonary hypertension Retinal hemorrhage Right-sided heart failure Sleep apnea MILD-NO DEVICE RX'D Traumatic open wound of right lower leg with delayed healing (Resolved) Varicose vein of leg (Acute) Vascular malformation of liver Surgical History History of cardiac radiofrequency ablation S/P History of colonoscopy History of esophagogastroduodenoscopy (EGD) History of gastrostomy History of total knee replacement R/L Hx of transurethral resection of prostate Family History Father , Age 38 No problems noted. Mother , Age 34 No problems noted. 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 Feels Safe at Home: Yes Smoking Status: Former smoker Tobacco Type: pipe ; Number of Years Since Quit: 13 ; Second Hand Exposure: No ; Hx Alcohol Use: Yes (2 drinks daily) Alcohol type: wine Alcohol Intake Frequency: Daily Alcohol Intake Frequency Comment: 2 glasses of wine with dinner every day Hx Substance Use: No Seatbelt Use: always Review of Systems Review of Systems: All systems reviewed & are unremarkable except as noted in HPI & below Denies dizziness or double vision, no difficulty with vision 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 No gastrointestinal bleeding HPI with ROS otherwise Physical Exam Constitutional: WD/WN, vitals as above Eyes: PERRL, conjunctivae normal, anicteric sclerae (Opsoclonus present OU) ENMT: external ear and nose normal, oropharynx normal Neck: trachea midline, no thyromegaly Respiratory: normal respiratory effort and able to speak in complete sentences Auscultation: + diminished lung sounds (At the right base) and + wheezes (Wheeze in the left upper lung field); no crackles Cardiovascular: Rate/Rhythm: regular rate and + irregularly irregular Heart Sounds: + murmur (2/6 systolic murmur at the right upper sternal border) Vessels: + JVD (Mild) Extremities: + edema (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) Chest (Breasts): Chest: normal inspection of chest Gastrointestinal (Abdomen): Inspection/Auscultation: + abdomen distended and normal bowel sounds; + abdomen abnormal to inspection Percussion/Palpation: + ascites and + tympanic to percussion; abdomen nontender Musculoskeletal: Extremities: no cyanosis Skin: + dry skin (Of the legs); no erythema Neurologic: moves all extremities and awake; no focal motor deficits Psychiatric: A+Ox3, euthymic affect Lymphatic: no lymphedema Results & Data Results & Data ([facility]) Vital Signs (Past 12 Hours) Vital Signs Temp Pulse Pulse Resp BP BP Pulse Ox 03/02/20 11:30 68 69 21 119/84 119/84 94 03/02/20 11:15 70 23 94 03/02/20 11:13 68 69 17 120/68 120/68 94 03/02/20 11:12 69 19 94 03/02/20 10:57 95 03/02/20 10:49 36.5 C 68 20 140/77 95 Laboratory Results 03/02/20 03/02/20 03/02/20 Range/Units 13:42 13:42 13:42 WBC (4.8-10.8) K/uL RBC (4.7-6.1) M/uL Hgb (14.0-18.0) g/dL Hct (42-52) % MCV (80-100) fL MCH (25-34) pg MCHC (32-36) g/dL RDW Std Deviation (36.4-46.3) fL RDW Coeff of Chel (11.5-14.5) % Plt Count (130-400) K/uL MPV (7.4-10.4) fL Immature Gran % (Auto) % Neut % (Auto) % Lymph % (Auto) % [place] % (Auto) % Eos % (Auto) % Baso % (Auto) % Immature Gran # (Auto) (0.00-0.02) K/uL Neut # (Auto) (1.4-6.5) K/uL Lymph # (Auto) (1.2-3.4) K/uL [place] # (Auto) (0.11-0.59) K/uL Eos # (Auto) (0-0.5) K/uL Baso # (Auto) (0-0.2) K/uL PT (9.0-12.0) Seconds INR (0.9-1.1) Sodium (136-145) mmol/L Potassium (3.5-5.1) mmol/L Chloride (98-107) mmol/L Carbon Dioxide (21-32) mmol/L Anion Gap (3-11) BUN (7-18) mg/dl Creatinine (0.6-1.4) mg/dl Est Cr Clr Drug Dosing Est GFR ( Amer) Est GFR (Non-Af Amer) BUN/Creatinine Ratio (10-20) Glucose (70-99) mg/dl Calcium (8.5-10.1) mg/dl Magnesium (1.8-2.4) mg/dl Total Bilirubin (0.2-1) mg/dl AST (15-37) U/L ALT (12-78) U/L Alkaline Phosphatase (45-117) U/L Lactate Dehydrogenase 231 (87-241) U/L Troponin I (0-0.045) ng/ml NT-Pro-B Natriuret Pep (0-1800) pg/ml Total Protein (6.4-8.2) gm/dl Albumin (3.4-5.0) gm/dl Globulin (2.5-4.0) gm/dl Albumin/Globulin Ratio (0.9-2) Vitamin B12 1436 H (211-911) pg/ml Folate 9.98 (>5.38) ng/ml 03/02/20 03/02/20 03/02/20 Range/Units 11:10 11:10 11:10 WBC 3.98 L (4.8-10.8) K/uL RBC 3.84 L (4.7-6.1) M/uL Hgb 11.5 L (14.0-18.0) g/dL Hct 36.0 L (42-52) % MCV 93.8 (80-100) fL MCH 29.9 (25-34) pg MCHC 31.9 L (32-36) g/dL RDW Std Deviation 55.2 H (36.4-46.3) fL RDW Coeff of Chel 16.0 H (11.5-14.5) % Plt Count 164 (130-400) K/uL MPV 9.5 (7.4-10.4) fL Immature Gran % (Auto) 0.3 % Neut % (Auto) 62.4 % Lymph % (Auto) 19.6 % [place] % (Auto) 10.6 % Eos % (Auto) 5.8 % Baso % (Auto) 1.3 % Immature Gran # (Auto) 0.01 (0.00-0.02) K/uL Neut # (Auto) 2.49 (1.4-6.5) K/uL Lymph # (Auto) 0.78 L (1.2-3.4) K/uL [place] # (Auto) 0.42 (0.11-0.59) K/uL Eos # (Auto) 0.23 (0-0.5) K/uL Baso # (Auto) 0.05 (0-0.2) K/uL PT 14.0 H (9.0-12.0) Seconds INR 1.3 H (0.9-1.1) Sodium 137 (136-145) mmol/L Potassium 4.0 (3.5-5.1) mmol/L Chloride 101 (98-107) mmol/L Carbon Dioxide 32 (21-32) mmol/L Anion Gap 4.0 (3-11) BUN 19 H (7-18) mg/dl Creatinine 1.05 (0.6-1.4) mg/dl Est Cr Clr Drug Dosing Not Reportable Est GFR ( Amer) 74.1 Est GFR (Non-Af Amer) 64.0 BUN/Creatinine Ratio 17.8 (10-20) Glucose 117 H (70-99) mg/dl Calcium 8.5 (8.5-10.1) mg/dl Magnesium 2.5 H (1.8-2.4) mg/dl Total Bilirubin 2.0 H (0.2-1) mg/dl AST 33 (15-37) U/L ALT 22 (12-78) U/L Alkaline Phosphatase 249 H (45-117) U/L Lactate Dehydrogenase (87-241) U/L Troponin I 0.017 (0-0.045) ng/ml NT-Pro-B Natriuret Pep 2228 H (0-1800) pg/ml Total Protein 7.6 (6.4-8.2) gm/dl Albumin 3.2 L (3.4-5.0) gm/dl Globulin 4.4 H (2.5-4.0) gm/dl Albumin/Globulin Ratio 0.7 L (0.9-2) Vitamin B12 (211-911) pg/ml Folate (>5.38) ng/ml Diagnostic Findings Chest x-ray image personally reviewed by me and agree with the following report: SINGLE VIEW CHEST CLINICAL HISTORY: Dyspnea. FINDINGS: An AP, portable, upright chest radiograph is compared to study dated 06/24/2019 and correlated with chest CT dated 07/06/2019. The examination is degraded by portable technique and apical lordotic positioning. The heart is enlarged noting atherosclerotic calcification of the thoracic aorta. The pu lmonary vasculature is noncongested. There is a small right pleural effusion with right basilar consolidation. The left lung appears clear. No pneumothorax is seen. The skeletal structures are osteopenic. The bony thorax is grossly intact. Degenerative change is noted in the shoulders and thoracic spine. IMPRESSION: 1. Cardiomegaly without radiographic evidence of congestive failure. 2. Right pleural effusion with right basilar consolidation. This could represent atelectasis and/or pneumonia/aspiration pneumonitis. Clinical correlation will be required and radiographic follow-up to resolution is recommended. ECG Additional Comments: ECG performed on 03/02/2028 1105 with atrial fibrillation with a rate of 69, right bundle branch block, left anterior fascicular block, T wave abnormality in lateral leads all similar to previous Code Status & VTE Plan Code Status DNR/DNI VTE Prophylaxis Plan VTE Prophylaxis will be ordered: Yes PG Care Time/CCT Total # of Minutes Spent Total Time Spent with Patient: Total time spent is greater than 50% in coordination of care (as documented) at patient's floor/unit and/or counseling patient: Coding Level of Care Code 34400 Initial Inpt Care Lvl 3 Diagnoses Ascites R18.8 Pleural effusion J90 Chronic combined systolic (congestive) and diastolic (congestive) heart failure I50.42 Liver cirrhosis K74.60 Atrial fibrillation I48.91 Pulmonary hypertension I27.20 Chronic obstructive pulmonary disease J44.9 Aortic stenosis, mild I35.0 Obstructive sleep apnea syndrome G47.33 HTN (hypertension), benign I10 Enlarged prostate with lower urinary tract symptoms (LUTS) N40.1 DVT prophylaxis Z29.9
[2020-03-02] MEDS ORDERED: ALBUTEROL HFA 8 GM INHALER INH PRN (14:48)
[2020-03-02] MEDS ORDERED: ONDANSETRON INJ 2 MG/ML 2 ML VIAL IV PRN (14:48)
--- NOTE | 2020-03-02 15:36 | Ultrasound Report ---
PARACENTESIS UNDER ULTRASOUND GUIDANCE CLINICAL HISTORY: Cirrhosis and ascites. COMPARISON STUDY: Abdominal CT dated 02/26/2019. PROCEDURE: The risks, benefits, and alternatives to the procedure were discussed with the patient who voiced understanding. Written informed consent was obtained. Following real-time ultrasound localiza tion of a suitable pocket of fluid in the right lower quadrant, the abdomen was prepped and draped in the usual sterile fashion. The skin and soft tissues were anesthetized with 1% lidocaine. The sheath ed paracentesis needle was inserted and approximately 4 liters of straw-colored ascitic fluid was rem tessa by vacuum suction. The procedure was well tolerated and without immediate complication. The vivi ent left the department in satisfactory condition. IMPRESSION: Successful ultrasound-guided paracentesis with removal of approximately 4 liters of ascit ic fluid. ACT 112: Negative or not required by law. Electronically signed by: Braulio Villalobos M.D. 03/02/2020 3:35 PM
[2020-03-02 16:18] LABS: Albumin Peritoneal Fluid 2.3 g/dl; Total Protein Peritoneal Fluid 4.4 g/dl
[2020-03-02 16:33] LABS: Appearance Peritoneal Fluid CLEAR; Basophils, Fluid 0 %; Color Peritoneal Fluid YELLOW; Eosinophils, Fluid 1 %; Lymphocytes, Fluid 18 %; Mono,Macrophage,Mesothelial 75 %; Neutrophils, Fluid 6 %; RBC Peritoneal Fluid (A) < 3000 /uL; WBC Peritoneal Fluid (A) 254 /ul (0-300)
[2020-03-02] MEDS ORDERED: ALBUMIN 25% 50 ML with FUROSEMIDE 40 MG IV ONE (17:00)
[2020-03-02] MEDS ORDERED: ACETAMINOPHEN 325 MG TAB PO PRN (20:36)
[2020-03-02] MEDS: CYANOCOBALAMIN 500 MCG TABLET (VITAMIN B-12) PO SCH (21:09)
[2020-03-02] MEDS: TERAZOSIN HCL 5 MG CAP PO SCH (21:09)
[2020-03-02 21:17] LABS: BUN Creatinine Ratio 17.1 (10-20); Calcium 8.6 mg/dl (8.5-10.1); Creatinine Clr Calc Pharmacy 44.9 ml/min; Est GFR (African American) 64.4; Est GFR (Non-African American) 55.5; Magnesium 2.5 mg/dl (1.8-2.4); Potassium 3.4 mmol/L (3.5-5.1)
[2020-03-02] MEDS ORDERED: POTASSIUM CHLORIDE 20 MEQ TABCR PO STA (22:13)
--- NOTE | 2020-03-03 07:03 | Electrocardiogram Report ---
Test Reason : Blood Pressure : / mmHG Vent. Rate : 069 BPM Atrial Rate : 069 BPM P-R Int : 000 ms QRS Dur : 130 ms QT Int : 456 ms P-R-T Axes : 000 -63 054 degrees QTc Int : 488 ms Atrial fibrillation with occasional Premature ventricular complexes Left axis deviation Right bundle branch block Inferior infarct , age undetermined T wave abnormality, consider lateral ischemia Abnormal ECG When compared with ECG of 27-FEB-2019 15:10, HR has decreased Confirmed by Henrique Larios ([id number]) on 03/03/2020 7:03:08 AM Referred By: REFERRED SELF Confirmed By:Henrique Larios
[2020-03-03 07:46] LABS: Basophils # (auto) 0.05 K/uL (0-0.2); Basophils % (auto) 1.1 %; Eosinophils # (auto) 0.28 K/uL (0-0.5); Eosinophils % (auto) 5.9 %; Hematocrit (blood only) 34.8 % (42-52); Hemoglobin 11.2 g/dL (14.0-18.0); Immature Granulocytes # (auto) 0.01 K/uL (0.00-0.02); Immature Granulocytes % (auto) 0.2 %; Lymphocytes # (auto) 0.88 K/uL (1.2-3.4); Lymphocytes % (auto) 18.6 %; Mean Corpuscular Hemoglobin 30.2 pg (25-34); Mean Corpuscular Hgb Conc 32.2 g/dL (32-36); Mean Corpuscular Volume 93.8 fL (80-100); Mean Platelet Volume 9.2 fL (7.4-10.4); Monocytes # (auto) 0.48 K/uL (0.11-0.59); Monocytes % (auto) 10.1 %; Neutrophils # (auto) 3.04 K/uL (1.4-6.5); Neutrophils % (auto) 64.1 %; Platelet Count 160 K/uL (130-400); RDW Coefficient of Variation 15.9 % (11.5-14.5); RDW Standard Deviation 54.5 fL (36.4-46.3); Red Blood Count 3.71 M/uL (4.7-6.1); White Blood Count 4.74 K/uL (4.8-10.8)
[2020-03-03 07:53] LABS: INR 1.5 (0.9-1.1); Prothrombin Time 15.4 Seconds (9.0-12.0)
[2020-03-03 08:19] LABS: Albumin Level 2.6 gm/dl (3.4-5.0); BUN Creatinine Ratio 19.3 (10-20); Bilirubin,Total 1.9 mg/dl (0.2-1); Calcium 8.3 mg/dl (8.5-10.1); Est GFR (African American) 76.8; Est GFR (Non-African American) 66.2; Magnesium 2.4 mg/dl (1.8-2.4); Total Protein 5.9 gm/dl (6.4-8.2)
[2020-03-03] MEDS ORDERED: SPIRONOLACTONE 25 MG TAB PO SCH (09:00)
[2020-03-03] MEDS ORDERED: FUROSEMIDE 40 MG in SYRINGE 1 ML IV SCH (09:00)
[2020-03-03] MEDS ORDERED: SPIRONOLACTONE 25 MG TAB PO ONE (09:50)
[2020-03-03] MEDS: POLYETHYLENE (MIRALAX) 17 GM PACK PO PRN (10:50)
--- NOTE | 2020-03-03 11:03 | Hospitalist Progress Note ---
Date of Service March 03, 2020 Assessment & Plan (1) Ascites: This patient is an 84-year-old male with a history of chronic combined systolic and diastolic CHF, cirrhosis of the liver, severe COPD, YURIDIA not tolerant of CPAP, pulmonary hypertension, chronic atrial fibrillation not on anticoagulation, HTN, BPH, mild-moderate aortic stenosis, and prior GI bleed, who presents to the ER with progressively worsening shortness of breath and weight gain as well as abdominal distention. He had his Lasix increased by the [facility] clinic [place] 3 days ago to 40 mg once daily up from 20 mg. He has gained at least 4 pounds over the last few days and the shortness of breath got much worse today which prompted his visit to the ER. ER physician performed a bedside ultrasound and found a lot of ascites and right-sided pleural effusion. The patient denies any abdominal pain, no fevers, no changes in bowel habits and he is moving his bowels daily. He denies any lower extremity swelling. Denies nausea/vomiting/diarrhea. Patient with known CHF and cirrhosis, likely a combination of the ascites and abdominal distention causing dyspnea as well as the pleural effusion and acute CHF. Albumin is only mildly low at 3.2 -Admit to medical floor with telemetry for arrhythmia monitoring -S/P paracenthesis -Had a dose of lasix and albumin after paracentesis for this evening -On 03/03 will stich his lasix to 40 mg IV daily and increase spironolactone to 100 mg PO DAILY. -Will check ascites fluid studies although do not suspect SBP with no abdominal pain, no leukocytosis, no fevers -Low-sodium diet, fluid restriction -Needs cessation of alcohol use: HE ONLY DRINKS ABOUT 2 GLASSES OF WINE A NIGHT, UNSURE OF THE CAUSE OF HIS CIRRHOSIS. -Patient had refused to f/u with rn staff as an outpatient in the past -Has declined follow-up with GI in the past for his cirrhosis -[facility] prognosis is poor. MELD score is 14. 6% percent mortality for next 3 months. Maddrey is 16.5. Which in itself does not have a poor prognsosi. However, given his age, and other comorbidites. He will need to be closely m onitored as an outpatient. (2) Pleural effusion: -Secondary to acute on chronic combined systolic and diastolic CHF as well as from ascites -Likely cause of his dyspnea in addition to significant abdominal distention -Follow with imaging of the chest periodically and follow clinically (3) Chronic combined systolic (congestive) and diastolic (congestive) heart failure: Follows with CHF clinic Here with acute on chronic combined systolic and diastolic CHF proBNP elevated 2228, with right-sided pleural effusion With right-sided heart failure, preserved EF, pulmonary hypertension, severe RV dilatation with normal systolic function on echo from 03/16 -Dry weight is 167 pounds as per CHF clinic records -Diuresing with IV Lasix as above along with paracentesis -Follow daily weights, strict I's and O's, low-sodium diet, fluid restrict to 1500 mL's per day As stated above. (4) Liver cirrhosis: Unknown etiology, does drink wine on a daily basis and also with right- sided heart failure which may be contributing -With ascites as above INR mildly elevated at 1.3, platelets are low normal at 164, with some leukopenia and mild anemia, elevated alkaline phosphatase consistent with previous, elevated total bilirubin at 2.0 stable from previous -Follow daily CBC, LFTs, INR -Again, has declined GI follow-up in the past On liver imaging from last year, he has some sort of likely vascular abnormality in the liver, but no tumor (5) Atrial fibrillation: With permanent atrial fibrillation, with a history of atrial flutter ablation many years ago Not on anticoagulation at his discretion due to history of retinal hemorrhage and GI bleeding -Follows with Dr. Larios of cardiology -Is not on any AV frances blocking agents and is rate controlled -Follow on telemetry (6) Pulmonary hypertension: As above, moderate as noted on echo (7) Chronic obstructive pulmonary disease: Severe as noted on PFTs and recent pulmonary notes No acute exacerbation -Continue home bronchodilator PRN (8) Aortic stenosis, mild: -Noted (9) Obstructive sleep apnea syndrome: Had a CPAP but is not using as he is intolerant of it (10) HTN (hypertension), benign: Blood pressures are controlled -Continue diuretics, also on terazosin for prostate (11) Enlarged prostate with lower urinary tract symptoms (LUTS): Continue terazosin no acute issues (12) DVT prophylaxis: SCDs only, having paracentesis-avoid blood thinners, patient also hesitant about being on blood thinners due to previous retinal hemorrhage Disposition-admit to medical floor with telemetry, expected least a 2 midnight stay for continued diuresis and monitoring for recurrent ascites after paracentesis DNR/DNI as per discussion with patient His , Sharri, would be his HCPOA Admission and Anticipated Discharge Date Admission Date: March 02, 2020 Subjective Patient reports feeling better today. He states he is less short of breath. He reports his bloating has improved, He does feel somewhat constipated though. He states he has not had a BM for the past 24 hours. Review of Systems Review of Systems: All systems reviewed & are unremarkable except as noted in HPI & below Physical Exam Physical Exam: Constitutional: WD/WN, vitals as above Eyes: PERRL, conjunctivae normal, anicteric sclerae (Opsoclonus present OU) ENMT: external ear and nose normal, oropharynx normal Neck: trachea midline, no thyromegaly Respiratory: normal respiratory effort and able to speak in complete sentences Auscultation: + diminished lung sounds (At the right base) no wheezing; no crackles Cardiovascular: Rate/Rhythm: regular rate and + irregularly irregular Heart Sounds: + murmur (2/6 systolic murmur at the right upper sternal border) Extremities: + edema (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) Chest (Breasts): Chest: normal inspection of chest Gastrointestinal (Abdomen): Inspection/Auscultation: + abdomen distended and normal bowel sounds; + abdomen abnormal to inspection Percussion/Palpation: + ascites and + tympanic to percussion; abdomen nontender Musculoskeletal: Extremities: no cyanosis Skin: + dry skin (Of the legs); no erythema Neurologic: moves all extremities and awake; no focal motor deficits Psychiatric: A+Ox3, euthymic affect Lymphatic: no lymphedema Results & Data Results & Data ([facility]) Vital Signs (Past 12 Hours) Vital Signs Temp Pulse Pulse Resp BP Pulse Ox 03/03/20 10:46 119/67 03/03/20 08:18 103/57 L 03/03/20 07:19 36.4 C L 65 18 94/53 L 93 03/03/20 04:43 93 03/03/20 04:27 36.5 C 55 L 18 104/61 88 L 03/02/20 23:03 36.6 C 65 18 103/55 L 90 PG Care Time/CCT Total # of Minutes Spent Total Time Spent with Patient: Total time spent is greater than 50% in coordination of care (as documented) at patient's floor/unit and/or counseling patient: Coding Level of Care Code 91116 Subseq Hosp Care Lvl 3 Diagnoses Ascites R18.8 Pleural effusion J90 Chronic combined systolic (congestive) and diastolic (congestive) heart failure I50.42 Liver cirrhosis K74.60 Atrial fibrillation I48.91 Pulmonary hypertension I27.20 Chronic obstructive pulmonary disease J44.9 Aortic stenosis, mild I35.0 Obstructive sleep apnea syndrome G47.33 HTN (hypertension), benign I10 Enlarged prostate with lower urinary tract symptoms (LUTS) N40.1 DVT prophylaxis Z29.9 Time Spent (min) 35
[2020-03-03] MEDS ORDERED: DOCUSATE SODIUM/SENNA 50/8.6MG TAB PO ONE (18:00)
[2020-03-03] MEDS: CYANOCOBALAMIN 500 MCG TABLET (VITAMIN B-12) PO SCH (20:40)
[2020-03-03] MEDS: TERAZOSIN HCL 5 MG CAP PO SCH (20:40)
[2020-03-04] MEDS: FUROSEMIDE 40 MG in SYRINGE 0 ML IV SCH (09:10)
[2020-03-04] MEDS: DOCUSATE SODIUM/SENNA 50/8.6MG TAB PO SCH (09:10)
[2020-03-04] MEDS: SPIRONOLACTONE 100 MG TAB PO SCH (09:10)
[2020-03-04] MEDS: POLYETHYLENE (MIRALAX) 17 GM PACK PO PRN (09:10)
[2020-03-04 10:38] LABS: Hematocrit (blood only) 38.4 % (42-52); Hemoglobin 12.3 g/dL (14.0-18.0); Mean Corpuscular Hemoglobin 30.1 pg (25-34); Mean Corpuscular Volume 94.1 fL (80-100); Platelet Count 188 K/uL (130-400); RDW Coefficient of Variation 15.7 % (11.5-14.5); RDW Standard Deviation 54.6 fL (36.4-46.3); Red Blood Count 4.08 M/uL (4.7-6.1); White Blood Count 4.95 K/uL (4.8-10.8)
[2020-03-04] MEDS ORDERED: LACTULOSE SYRUP 30 GM/45 ML UDP PO STA (10:55)
[2020-03-04 11:02] LABS: Calcium 8.4 mg/dl (8.5-10.1); Creatinine Clr Calc Pharmacy 49.6 ml/min; Est GFR (African American) 72.5; Est GFR (Non-African American) 62.5; Magnesium 2.4 mg/dl (1.8-2.4); Potassium 3.8 mmol/L (3.5-5.1)
--- NOTE | 2020-03-04 11:04 | Hospitalist Progress Note ---
Date of Service March 04, 2020 Assessment & Plan (1) Ascites: This patient is an 84-year-old male with a history of chronic combined systolic and diastolic CHF, cirrhosis of the liver, severe COPD, YURIDIA not tolerant of CPAP, pulmonary hypertension, chronic atrial fibrillation not on anticoagulation, HTN, BPH, mild-moderate aortic stenosis, and prior GI bleed, who presents to the ER with progressively worsening shortness of breath and weight gain as well as abdominal distention. He had his Lasix increased by the [facility] clinic [place] 3 days ago to 40 mg once daily up from 20 mg. He has gained at least 4 pounds over the last few days and the shortness of breath got much worse today which prompted his visit to the ER. ER physician performed a bedside ultrasound and found a lot of ascites and right-sided pleural effusion. The patient denies any abdominal pain, no fevers, no changes in bowel habits and he is moving his bowels daily. He denies any lower extremity swelling. Denies nausea/vomiting/diarrhea. Patient with known CHF and cirrhosis, likely a combination of the ascites and abdominal distention causing dyspnea as well as the pleural effusion and acute CHF. Albumin is only mildly low at 3.2 -Admit to medical floor with telemetry for arrhythmia monitoring -S/P paracenthesis -Had a dose of lasix and albumin after paracentesis on night of admission -On 03/03 will switched his lasix to 40 mg IV daily and increased spironolactone to 100 mg PO DAILY. Net fluid loss: 1.5 liters -Will check ascites fluid studies although do not suspect SBP with no abdominal pain, no leukocytosis, no fevers -Low-sodium diet, fluid restriction -Needs cessation of alcohol use: HoweverHE ONLY DRINKS ABOUT 2 GLASSES OF WINE A NIGHT, UNSURE OF THE CAUSE OF HIS CIRRHOSIS. 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 -Has declined follow-up with GI in the past for his cirrhosis MELD score is 14. 6% percent mortality for next 3 months. Maddrey is 16.5. Which in itself does not have a poor prognsosi. However, given his age, and other comorbidities. He will need to be closely monitored as an outpatient. (2) Pleural effusion: -Secondary to acute on chronic combined systolic and diastolic CHF as well as from ascites -Likely cause of his dyspnea in addition to significant abdominal distention -Follow with imaging of the chest periodically and follow clinically (3) Chronic combined systolic (congestive) and diastolic (congestive) heart failure: Follows with CHF clinic Here with acute on chronic combined systolic and diastolic CHF proBNP elevated 2228, with right-sided pleural effusion With right-sided heart failure, preserved EF, pulmonary hypertension, severe RV dilatation with normal systolic function on echo from 03/16 -Dry weight is 167 pounds as per CHF clinic records -Diuresing with IV Lasix as above along with paracentesis -Follow daily weights, strict I's and O's, low-sodium diet, fluid restrict to 1500 mL's per day As stated above. (4) Liver cirrhosis: Unknown etiology, does drink wine on a daily basis and also with right- sided heart failure which may be contributing -With ascites as above INR mildly elevated at 1.3, platelets are low normal at 164, with some leukopenia and mild anemia, elevated alkaline phosphatase consistent with previous, elevated total bilirubin at 2.0 stable from previous -Follow daily CBC, LFTs, INR -Again, has declined GI follow-up in the past On liver imaging from last year, he has some sort of likely vascular abnormality in the liver, but no tumor (5) Atrial fibrillation: With permanent atrial fibrillation, with a history of atrial flutter ablation many years ago Not on anticoagulation at his discretion due to history of retinal hemorrhage and GI bleeding -Follows with Dr. Larios of cardiology -Is not on any AV frances blocking agents and is rate controlled -Follow on telemetry (6) Pulmonary hypertension: As above, moderate as noted on echo (7) Chronic obstructive pulmonary disease: Severe as noted on PFTs and recent pulmonary notes No acute exacerbation -Continue home bronchodilator PRN (8) Aortic stenosis, mild: -Noted (9) Obstructive sleep apnea syndrome: Had a CPAP but is not using as he is intolerant of it (10) HTN (hypertension), benign: Blood pressures are controlled -Continue diuretics, also on terazosin for prostate (11) Enlarged prostate with lower urinary tract symptoms (LUTS): Continue terazosin no acute issues (12) DVT prophylaxis: SCDs only, having paracentesis-avoid blood thinners, patient also hesitant about being on blood thinners due to previous retinal hemorrhage Disposition-admit to medical floor with telemetry, expected least a 2 midnight stay for continued diuresis and monitoring for recurrent ascites after paracentesis DNR/DNI as per discussion with patient His , Sharri, would be his HCPOA Dispo: continue to diurese until reaches near dry weight. Admission and Anticipated Discharge Date Admission Date: March 02, 2020 Subjective Patient reports breathing better. His main conern is the fact that he has not had a bowel movement. for the past 3 days. He states he is breathing better and continues to urinate. Review of Systems Review of Systems: All systems reviewed & are unremarkable except as noted in HPI & below Physical Exam Physical Exam: Constitutional: WD/WN, vitals as above Eyes: PERRL, conjunctivae normal, anicteric sclerae (Opsoclonus present OU) ENMT: external ear and nose normal, oropharynx normal Neck: trachea midline, no thyromegaly Respiratory: normal respiratory effort and able to speak in complete sentences Auscultation: + diminished lung sounds (At the right base) no wheezing; no crackles Cardiovascular: Rate/Rhythm: regular rate and + irregularly irregular Heart Sounds: + murmur (2/6 systolic murmur at the right upper sternal border) Extremities: + decreased edema (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) Chest (Breasts): Chest: normal inspection of chest Gastrointestinal (Abdomen): Inspection/Auscultation: + abdomen distended and normal bowel sounds; + abdomen abnormal to inspection Percussion/Palpation: + ascites and + tympanic to percussion; abdomen nontender Musculoskeletal: Extremities: no cyanosis Skin: + dry skin (Of the legs); no erythema Neurologic: moves all extremities and awake; no focal motor deficits Psychiatric: A+Ox3, euthymic affect Lymphatic: no lymphedema Results & Data Results & Data ([facility]) Vital Signs (Past 12 Hours) Vital Signs Temp Pulse Resp BP Pulse Ox 03/04/20 10:58 36.5 C 80 18 112/49 L 92 03/04/20 07:15 36.7 C 67 18 106/58 L 90 03/04/20 03:10 36.7 C 66 19 101/42 L 90 03/03/20 23:18 36.7 C 70 20 102/60 94 PG Care Time/CCT Total # of Minutes Spent Total Time Spent with Patient: Total time spent is greater than 50% in coordination of care (as documented) at patient's floor/unit and/or counseling patient: Coding Level of Care Code 23132 Subseq Hosp Care Lvl 2 Diagnoses Ascites R18.8 Pleural effusion J90 Chronic combined systolic (congestive) and diastolic (congestive) heart failure I50.42 Liver cirrhosis K74.60 Atrial fibrillation I48.91 Pulmonary hypertension I27.20 Chronic obstructive pulmonary disease J44.9 Aortic stenosis, mild I35.0 Obstructive sleep apnea syndrome G47.33 HTN (hypertension), benign I10 Enlarged prostate with lower urinary tract symptoms (LUTS) N40.1 DVT prophylaxis Z29.9 Time Spent (min) 25
[2020-03-04 11:05] LABS: Albumin Globulin Ratio 0.7 (0.9-2); Bilirubin,Total 1.8 mg/dl (0.2-1); Globulin 4.1 gm/dl (2.5-4.0); Total Protein 7.1 gm/dl (6.4-8.2)
[2020-03-04 11:07] LABS: Albumin Level 2.9 gm/dl (3.4-5.0); Bilirubin Direct 1.2 mg/dl (0-0.2); Bilirubin,Total 1.8 mg/dl (0.2-1); Phosphorus 2.6 mg/dl (2.5-4.9); Total Protein 7.1 gm/dl (6.4-8.2)
[2020-03-04] MEDS: TERAZOSIN HCL 5 MG CAP PO SCH (21:01)
[2020-03-04] MEDS: CYANOCOBALAMIN 500 MCG TABLET (VITAMIN B-12) PO SCH (21:02)
[2020-03-05] MEDS: FUROSEMIDE 40 MG in SYRINGE 0 ML IV SCH (08:04)
[2020-03-05] MEDS: SPIRONOLACTONE 100 MG TAB PO SCH (08:05)
[2020-03-05] MEDS: DOCUSATE SODIUM/SENNA 50/8.6MG TAB PO SCH (08:05)
--- NOTE | 2020-03-05 15:36 | Hospitalist Progress Note ---
Date of Service March 05, 2020 Assessment & Plan (1) Chronic combined systolic (congestive) and diastolic (congestive) heart failure: acute on chronic combined systolic and diastolic CHF, nearly resolved proBNP elevated 2228, with right-sided pleural effusion With right-sided heart failure, preserved EF, pulmonary hypertension, severe RV dilatation with normal systolic function on echo from 03/16 -Dry weight is 167 pounds as per CHF clinic records - will give extra dose of Lasix 40mg IV this afternoon, feel that he is approaching dry weight -Follow daily weights, strict I's and O's, low-sodium diet, fluid restrict to 1500 mL's per day check BMP tomorrow, hold on Lasix until labs are back (2) Ascites: Patient with known CHF and cirrhosis, likely a combination of the ascites and abdominal distention causing dyspnea as well as the pleural effusion and acute CHF. Albumin was only mildly low at 3.2 on admission Paracentesis for 4 liters, no evidence of SBP he may consider follow up with GI, but that can be deferred to outpatient continue on Lasix, increased dose of Spironolactone at 100mg (3) Pleural effusion: -Secondary to acute on chronic combined systolic and diastolic CHF as well as from ascites -Likely cause of his dyspnea in addition to significant abdominal distention no plan for thoracentesis at this time, use Lasix consider repeat CXR tomorrow, still with decreased BS in bases (4) Liver cirrhosis: Unknown etiology, does drink wine on a daily basis and also with right- sided heart failure which may be contributing -With ascites as above see above, certainly no signs of major decompensation (5) Atrial fibrillation: With permanent atrial fibrillation, with a history of atrial flutter ablation many years ago Not on anticoagulation at his discretion due to history of retinal hemorrhage and GI bleeding -Follows with Dr. Larios of cardiology -Is not on any AV frances blocking agents and is rate controlled (6) Pulmonary hypertension: As above, moderate as noted on echo (7) Chronic obstructive pulmonary disease: Severe as noted on PFTs and recent pulmonary notes No acute exacerbation -Continue home bronchodilator PRN (8) Aortic stenosis, mild: -Noted (9) Obstructive sleep apnea syndrome: Had a CPAP but is not using as he is intolerant of it (10) HTN (hypertension), benign: Blood pressures are controlled -Continue diuretics, also on terazosin for prostate (11) Enlarged prostate with lower urinary tract symptoms (LUTS): Continue terazosin no acute issues (12) DVT prophylaxis: SCDs only, having paracentesis-avoid blood thinners, patient also hesitant about being on blood thinners due to previous retinal hemorrhage Disposition-admit to medical floor with telemetry, expected least a 2 midnight stay for continued diuresis and monitoring for recurrent ascites after paracentesis DNR/DNI as per discussion with patient His , Sharri, would be his HCPOA Dispo: consult PT/OT to get him walking, anticipate d/c to home in 48 hours Admission and Anticipated Discharge Date Admission Date: March 02, 2020 Anticipated date of discharge: 03/07/20 Subjective patient feeling better, fluid is coming off, breathing easier discussed with Geena CORONA this morning, she says that the patient would not always take his medications as prescribed, especially Lasix reviewed chart and labs, Cr is stable 4 liters removed with the paracentesis, 2 liters off with diuretics patient is hoping to go home, discussed getting PT/OT evaluations, he agrees he is eating well Review of Systems Review of Systems: All systems reviewed & are unremarkable except as noted in HPI & below Physical Exam Constitutional: WD/WN, vitals as above Eyes: PERRL, conjunctivae normal, anicteric sclerae ENMT: external ear and nose normal, oropharynx normal Neck: trachea midline, no thyromegaly Respiratory: normal respiratory effort; no respiratory distress and no cough Auscultation: lungs clear to auscultation bilaterally and + diminished lung sounds (bases) Cardiovascular: Rate/Rhythm: regular rate and regular rhythm Heart Sounds: normal S1 and normal S2; no murmur Vessels: no JVD Extremities: normal capillary refill and + edema (trace in ankles) Gastrointestinal (Abdomen): normal bowel sounds, soft, nontender, no hepatosplenomegaly Musculoskeletal: no cyanosis or clubbing, extremities motor strength 5/5 Skin: no rashes, warm and dry Neurologic: patellar DTR's 2+ bilat, sensation intact and PERRL, EOMI, accommodation nl, no face palsy, no dysarthria Psychiatric: A+Ox3, euthymic affect Lymphatic: no cervical or axillary lymphadenopathy Results & Data Results & Data ([facility]) Vital Signs (Past 12 Hours) Vital Signs Temp Pulse Pulse Resp BP Pulse Ox 03/05/20 15:28 36.7 C 80 20 111/45 L 94 03/05/20 11:21 36.8 C 71 18 111/53 L 95 03/05/20 08:00 77 03/05/20 07:21 36.5 C 71 18 121/49 L 90 03/05/20 03:43 36.6 C 80 20 100/62 91 Medications Administered Current Inpatient Medications Acetaminophen (Tylenol) 650 mg PO Q6 PRN PRN Reason: Pain Stop: 04/01/20 20:35 Last Admin: 03/02/20 21:09 Dose: 650 mg Documented by: Albuterol (Ventolin Hfa) 2 puffs INH Q6R PRN PRN Reason: Shortness Of Breath Or Wheezing Stop: 04/01/20 14:47 Cyanocobalamin (Vitamin B-12) 1,000 mcg PO [facility] Stop: 04/01/20 20:59 Last Admin: 03/04/20 21:02 Dose: 1,000 mcg Documented by: Furosemide 40 mg/ Syringe 4 mls @ 4 mls/min IV [id number] [facility] Stop: 04/04/20 16:59 Ondansetron HCl (Zofran) 4 mg IV Q6H PRN PRN Reason: Nausea Stop: 04/01/20 14:47 Polyethylene Glycol (Miralax Powder Packet) 17 gm PO DAILY PRN PRN Reason: Constipation Stop: 04/01/20 14:47 Last Admin: 03/04/20 09:10 Dose: 17 gm Documented by: Senna/Docusate Sodium (Senokot S) 1 tab PO [facility] Stop: 04/03/20 08:59 Last Admin: 03/05/20 08:05 Dose: 1 tab Documented by: Spironolactone (Aldactone) 100 mg PO [facility] Stop: 04/03/20 08:59 Last Admin: 03/05/20 08:05 Dose: 100 mg Documented by: Terazosin HCl (Hytrin) 10 mg PO [facility] Stop: 04/01/20 20:59 Last Admin: 03/04/20 21:01 Dose: 10 mg Documented by: PG Care Time/CCT Total # of Minutes Spent Total Time Spent: 32 Total Time Spent with Patient: Total time spent is greater than 50% in coordination of care (as documented) at patient's floor/unit and/or counseling patient: Coding Level of Care Code 48898 Subseq Hosp Care Lvl 3 Diagnoses Chronic combined systolic (congestive) and diastolic (congestive) heart failure I50.42 Ascites R18.8 Pleural effusion J90 Liver cirrhosis K74.60 Atrial fibrillation I48.91 Pulmonary hypertension I27.20 Chronic obstructive pulmonary disease J44.9 Aortic stenosis, mild I35.0 Obstructive sleep apnea syndrome G47.33 HTN (hypertension), benign I10 Enlarged prostate with lower urinary tract symptoms (LUTS) N40.1 DVT prophylaxis Z29.9
[2020-03-05] MEDS ORDERED: FUROSEMIDE 40 MG in SYRINGE 0 ML IV SCH (17:00)
[2020-03-05] MEDS: CYANOCOBALAMIN 500 MCG TABLET (VITAMIN B-12) PO SCH (20:47)
[2020-03-05] MEDS: TERAZOSIN HCL 5 MG CAP PO SCH (20:47)
[2020-03-06 06:39] LABS: BUN Creatinine Ratio 17.9 (10-20); Calcium 8.6 mg/dl (8.5-10.1); Creatinine Clr Calc Pharmacy 51.9 ml/min; Est GFR (African American) 81.6; Est GFR (Non-African American) 70.4; Potassium 4.1 mmol/L (3.5-5.1)
[2020-03-06] MEDS: SPIRONOLACTONE 100 MG TAB PO SCH (08:36)
[2020-03-06] MEDS: DOCUSATE SODIUM/SENNA 50/8.6MG TAB PO SCH (08:36)
[2020-03-06] MEDS ORDERED: FUROSEMIDE 40 MG TAB PO SCH (09:00)
--- NOTE | 2020-03-06 11:39 | Discharge Summary ---
Date of Service March 06, 2020 Admission HPI Per Admitting Provider This patient is an 84-year-old male with a history of chronic combined systolic and diastolic CHF, cirrhosis of the liver, severe COPD, YURIDIA not tolerant of CPAP, pulmonary hypertension, chronic atrial fibrillation not on anticoagulation, HTN, BPH, mild-moderate aortic stenosis, and prior GI bleed, who presents to the ER with progressively worsening shortness of breath and weight gain as well as abdominal distention. He had his Lasix increased by the CHF clinic [facility] 3 days ago to 40 mg once daily up from 20 mg. He has gained at least 4 pounds over the last few days and the shortness of breath got much worse today which prompted his visit to the ER. ER physician performed a bedside ultrasound and found a lot of ascites and right-sided pleural effusion. The patient denies any abdominal pain, no fevers, no changes in bowel habits and he is moving his bowels daily. He denies any lower extremity swelling. Denies nausea/vomiting/diarrhea. He denies any chest pains. He has been feeling a little bit lightheaded. He has never had a paracentesis before. He continues to drink 2 glasses of wine every day and has no history of alcohol withdrawal. He has previously declined follow-up with gastroenterology for his cirrhosis. He is maintained on Lasix and spironolactone. He will be admitted for new onset ascites, acute on chronic combined systolic and diastolic CHF, and shortness of breath. Principal Diagnosis Acute on chronic combined diastolic and systolic heart failure Discharge Exam Constitutional WD/WN, vitals as above Eyes PERRL, conjunctivae normal, anicteric sclerae ENMT external ear and nose normal, oropharynx normal Neck trachea midline, no thyromegaly Respiratory normal respiratory effort; no respiratory distress and no cough Auscultation: lungs clear to auscultation bilaterally and + diminished lung sounds (bases) Cardiovascular Rate/Rhythm: regular rate and regular rhythm Heart Sounds: normal S1 and normal S2; no murmur Vessels: no JVD Extremities: normal capillary refill and + edema (trace in ankles) Gastrointestinal (Abdomen) normal bowel sounds, soft, nontender, no hepatosplenomegaly Musculoskeletal no cyanosis or clubbing, extremities motor strength 5/5 Skin no rashes, warm and dry Neurologic patellar DTR's 2+ bilat, sensation intact and PERRL, EOMI, accommodation nl, no face palsy, no dysarthria Psychiatric A+Ox3, euthymic affect Lymphatic no cervical or axillary lymphadenopathy Discharge Data Allergies Allergy/AdvReac Type Severity Reaction Status Date / Time Bactrim Allergy Unknown GI UPSET, Verified 05/12/18 09:28 FEVER, HEADACHE Cipro Allergy Unknown GI SYMPTOMS Verified 05/03/18 14:37 merbromin Allergy Unknown ALLERGIC Verified 03/02/20 11:25 TO MERCUROCHROME, RASH ciprofloxacin AdvReac Unknown GI SYMPTOMS Verified 03/02/20 11:25 mercury (elemental) AdvReac Unknown Verified 03/02/20 11:25 sulfamethoxazole AdvReac Unknown GI UPSET, Verified 03/02/20 11:25 FEVER, HEADACHE trimethoprim AdvReac Unknown GI UPSET, Verified 03/02/20 11:25 FEVER, HEADACHE Consultations 03/02/20 12:16 ED Decision to Admit Stat Ordered Studies 03/02/20 13:52 US paracentesis abd w/image Urgent Hospital Course (1) Chronic combined systolic (congestive) and diastolic (congestive) heart failure: acute on chronic combined systolic and diastolic CHF, resolved today proBNP elevated 2228, with right-sided pleural effusion at time of admission With right-sided heart failure, preserved EF, pulmonary hypertension, severe RV dilatation with normal systolic function on echo from 03/16 BMP shows stable Cr and stable electrolytes tolerated Lasix 40mg IV while admitted, spironolactone increased to 100mg daily plan for discharge will be to take Lasix 40mg PO daily (no longer on PRN basis, he understands this) Spironolactone 100mg daily daily weight in the morning, notify CHF clinic if weight up by 2-3 lbs sodium and fluid restrictions ordered discussed plan with patient and his , questions answered, follow up with CHF clinic scheduled for 03/12 (2) Ascites: Patient with known CHF and cirrhosis, likely a combination of the ascites and abdominal distention causing dyspnea as well as the pleural effusion and acute CHF. Albumin was only mildly low at 3.2 on admission Paracentesis for 4 liters, no evidence of SBP he may consider follow up with GI, but that can be deferred to outpatient continue on Lasix, increased dose of Spironolactone at 100mg he and his agree that less is more as far as work up, want to focus on controlling volume (3) Pleural effusion: -Secondary to acute on chronic combined systolic and diastolic CHF as well as from ascites -Likely cause of his dyspnea in addition to significant abdominal distention no plan for thoracentesis at this time, use Lasix consider repeat CXR tomorrow, still with decreased BS in bases (4) Liver cirrhosis: Unknown etiology, does drink wine on a daily basis and also with right- sided heart failure which may be contributing -With ascites as above see above, certainly no signs of major decompensation (5) Atrial fibrillation: With permanent atrial fibrillation, with a history of atrial flutter ablation many years ago Not on anticoagulation at his discretion due to history of retinal hemorrhage and GI bleeding -Follows with Dr. Larios of cardiology -Is not on any AV frances blocking agents and is rate controlled (6) Pulmonary hypertension: As above, moderate as noted on echo (7) Chronic obstructive pulmonary disease: Severe as noted on PFTs and recent pulmonary notes No acute exacerbation -Continue home bronchodilator PRN (8) Aortic stenosis, mild: -Noted (9) Obstructive sleep apnea syndrome: Had a CPAP but is not using as he is intolerant of it (10) HTN (hypertension), benign: Blood pressures are controlled -Continue diuretics, also on terazosin for prostate (11) Enlarged prostate with lower urinary tract symptoms (LUTS): Continue terazosin no acute issues (12) DVT prophylaxis: SCDs only, having paracentesis-avoid blood thinners, patient also hesitant about being on blood thinners due to previous retinal hemorrhage Disposition- d/c to home with home health follow up with CHF clinic and PCP Total Time Total Time Spent Total Time Spent (In Minutes): 36 minutes Total Time Includes: Examination of the Patient, Discharge Planning, Medication Reconciliation, Communication With Other Providers (Joelle Jacinto) and Other (updated over the phone) Discharge Plan Discharge Items Patient Disposition: Home - Self-Care Reason For Visit: ASCITES, ACUTE CHF Discharge Diagnosis: Acute on chronic diastolic and systolic heart failure Cirrhosis with ascites Condition on Discharge: Good Goals: control volume with lasix, aldactone, fluid restriction, daily weights follow up closely with heart failure clinic, Joelle CORONA Activity: Resume your previous activity Non-emergency contact: Primary Care Provider and [employer] Professional Call non-emergency contact if: you have any medication questions Follow-up/Referrals: BalJose J Olvera MD [Primary Care Provider] - 03/15/20 11:30 am (Please, follow up with Dr. De La Cruz on March 15 at 11:30 am. *If you need to change this appointment, call the office at [phone].) Steven Gómez MD [Physician] - 03/07/20 9:00 am (Please, follow up with Dr. Gómez on ThursdayMarch 07 at 9:00 am. *If you need to change this appointment, call the office at [phone].) Joelle Jacinto PA-C [Physician Financial Examiner] - 03/12/20 3:30 pm (Congestive Heart Failure Program Appointment Information Early follow up is essential to managing your heart failure. An appointment has been scheduled for you with the [facility] Heart [facility] Program within 7 days of discharge. Anticipate this visit to be 30-60 minutes long. Please expect a payroll and benefits manager phone call from one of our nurses approximately 48 hours from discharge. They will also be placing an order for lab work to be completed 1-2 days prior to your heart failure follow up appointment. Please be sure to have this done so we can go over the results when you come in. Office Location The cardiology office building is located in front of the hospital at [address] Bring the following with you to your follow-up doctor appointments: Please bring your daily weight log any discharge paperwork all of your medication bottles with you to this visit. ) Diet: Heart Healthy and Low Sodium (2gm) Fluids: 1800ml (7 cups) Addtl Attending Provider Instructions: Medications: - FUROSEMIDE: take 40mg EVERY morning, this is now a scheduled medication, no longer ordered as needed - SPIRONOLACTONE: dose increased to 100mg every morning from 25mg Acute on chronic diastolic and systolic heart failure acute component resolved, back to dry weight please go home today and step on your home scale, this is your DRY or BASELINE weight as part of your routine, step on scale EVERY morning after you urinate and prior to eating/drinking, record your weight if at any time your weight is up 2-3 lbs from baseline weight, call Joelle Jacinto for instructions follow a fluid restriction of 7 cups a day, this is ALL liquids follow a low sodium, < 2gm a day diet Ascites, evidence of cirrhosis most likely etiology of liver disease is long standing heart failure but this is just an assumption as you have never had a formal work up 4 liters of fluid removed from abdomen by paracentesis will use the Lasix and Spironolactone to keep fluid off you can discuss with Dr. Townsend a referral to liver specialist as outpatient if you are interested Call 911 and go to the Emergency Room if: * You have tightness or pain in your chest that does not go away with rest or Nitroglycerin * You are very short of breath even with rest Call your doctor if any of the following symptoms or problems start or get worse: * Shortness of breath or difficulty breathing * Wake up at night short of breath * Chest pain * Cough * Swelling of your hands, fee, or legs * More fatigued or tired with your normal activity * Palpitations - sudden fast heart beats WEIGHT * Weigh yourself every morning after using the bathroom. * Use the same scale. * Wear the same amount of clothing. * Write your weight down on your chart. * Call your doctor if you gain more than 2-3 pounds in 1-2 days. MEDICATIONS * Use this discharge instruction sheet for instructions. * Take your medications at the time your doctor ordered. * Do not skip a dose of your medicines. * If you miss a dose of medicine, take as soon as possible, but DO NOT DOUBLE A DOSE. * Read your medicine information when you get home. * Know all of the side effects of your medicine. * Call your doctor's office if you have any side effects. * Be sure all of your doctors know what medicine and herbs you take (including cold, flu, and herbal medicine). * Pain Medicine: If you do not get relief from your pain, please call your doctor for help. Take the following with you to your follow-up doctor appointments: * Weight Chart * Medication List * List of questions Do not drink excessive alcohol, beer or wine. Pending Studies at Discharge: No Stand-Alone Forms: My [employer], Smoking Cessation Medications and DC Order Prescriptions: New spironolactone 100 mg Tablet 100 mg PO QAM 30 Days Qty: 30 RF: 3 Continued terazosin 10 mg capsule 10 mg PO HS Qty: 90 RF: 3 albuterol sulfate 90 mcg/actuation HFA aerosol inhaler 2 puffs INH Q6H PRN (Reason: Shortness Of Breath Or Wheezing) Qty: 18 RF: 0 (DME) Auto Titrating CPAP Misc See Rx Instructions .ROUTE .MEDSUPPLY Qty: 1 RF: 0 (DME) CPAP Supplies Misc See Rx Instructions .ROUTE .MEDSUPPLY Qty: 1 RF: 0 (DME) Aeroneb Go Nebulizer Misc See Rx Instructions .ROUTE .MEDSUPPLY Qty: 1 RF: 0 cyanocobalamin (vitamin B-12) 1,000 mcg capsule 1,000 mcg PO HS RF: 0 ascorbic acid (vitamin C) [Vitamin C] 1,000 mg tablet 1 g PO DAILY PRN (Reason: .) RF: 0 Changed furosemide 20 mg tablet 40 mg PO DAILY 30 Days Qty: 60 RF: 3 Discontinued spironolactone 25 mg tablet 25 mg PO QAM RF: 0 Discharge Orders: Discharge Order (Routine); Ordered 03/06/20 Ordered By: Román Lopez Admission Data Admit Date/Time: 03/02/20 14:48 Attending Provider: Román Lopez Admit Provider: Zee Cornejo Primary Care Provider: Jose J Antoine V. Other Providers: Zee Cornejo Other Interventions: Discharge Summary Assessment (RN) Last Done: 03/06/20 14:02 Coding Level of Care Code D/C Day Management >30 mins Diagnoses Chronic combined systolic (congestive) and diastolic (congestive) heart failure I50.42 Ascites R18.8 Pleural effusion J90 Liver cirrhosis K74.60 Atrial fibrillation I48.91 Pulmonary hypertension I27.20 Chronic obstructive pulmonary disease J44.9 Aortic stenosis, mild I35.0 Obstructive sleep apnea syndrome G47.33 HTN (hypertension), benign I10 Enlarged prostate with lower urinary tract symptoms (LUTS) N40.1 DVT prophylaxis Z29.9
== END 2020-03-06 14:25 | disposition home or self-care (01) | DRG 292 ==
LOC: 2N 10:46 → ED 10:46 → 2N 13:46 → SUATTDRO 14:48

== ENCOUNTER 2020-11-29 04:53 | Inpatient (IN) ==
[2020-11-29 05:21] LABS: Basophils # (auto) 0.08 K/uL (0-0.2); Basophils % (auto) 1.4 %; Eosinophils # (auto) 0.68 K/uL (0-0.5); Eosinophils % (auto) 11.8 %; Hematocrit (blood only) 37.6 % (42-52); Hemoglobin 12.2 g/dL (14.0-18.0); Immature Granulocytes # (auto) 0.01 K/uL (0.00-0.02); Immature Granulocytes % (auto) 0.2 %; Lymphocytes # (auto) 1.01 K/uL (1.2-3.4); Lymphocytes % (auto) 17.6 %; Mean Corpuscular Hemoglobin 30.3 pg (25-34); Mean Corpuscular Hgb Conc 32.4 g/dL (32-36); Mean Corpuscular Volume 93.3 fL (80-100); Mean Platelet Volume 8.9 fL (7.4-10.4); Monocytes # (auto) 0.54 K/uL (0.11-0.59); Monocytes % (auto) 9.4 %; Neutrophils # (auto) 3.43 K/uL (1.4-6.5); Neutrophils % (auto) 59.6 %; Platelet Count 199 K/uL (130-400); RDW Coefficient of Variation 15.2 % (11.5-14.5); RDW Standard Deviation 52.4 fL (36.4-46.3); Red Blood Count 4.03 M/uL (4.7-6.1); White Blood Count 5.75 K/uL (4.8-10.8)
--- NOTE | 2020-11-29 05:21 | Emergency Department Note ---
History of Present Illness General Chief complaint: Shortness of Breath/Dyspnea Stated complaint: COUGH/SHORT OF BREATH/CONGESTION Time Seen by Provider: 11/29/20 04:54 Source: patient Mode of arrival: EMS Limitations: clinical acuity History of Present Illness Provider complaint: shortness of breath, cough Onset (ago): hour(s) 3 Location: chest Radiation: non-radiation Severity: moderate Pain Consistency: + constant Relieved By: + none Exacerbated By: + movement Associated symptoms: + cough Treatments prior to arrival: none This is an 85-year-old male brought in by EMS from home after abrupt onset of difficulty breathing that woke him up around 2 AM. Patient states he did not have a cough or any difficulty breathing at bedtime last night. Patient states since waking up he has felt persistently short of breath and and had a frequent productive cough. Patient denies fevers or chills, states he feels a slight tightness in the chest with coughing but otherwise does not have any pain. He denies any abdominal pain, nausea, vomiting, or diarrhea. Patient states he does have chronic leg swelling, and that is unchanged. Patient does have a history of atrial fibrillation but states he does not take any blood thinners. Patient does live at home with his . Patient is not on home oxygen. Patient denies asthma. Patient denies any prior history of pneumonia. Patient denies any recent sick contacts or known exposure to coronavirus. Patient was hypoxic for EMS at 87%. Hypoxic here on a trial of room air at 88%. Pt seen during a time of high acuity and national emergency pandemic while wearing PPE. Home Medications Medication Instructions Recorded Confirmed Type cyanocobalamin (vitamin B-12) 1,000 mcg PO HS 04/22/19 11/29/20 History 1,000 mcg capsule albuterol sulfate 90 mcg/actuation 2 puffs INH Q6H PRN #18 gm 10/19/19 11/29/20 Rx aerosol inhaler ascorbic acid (vitamin C) 1,000 mg 1 g PO DAILY PRN tab 10/27/19 11/29/20 History tablet terazosin 10 mg capsule 10 mg PO HS #90 cap 01/09/20 11/29/20 Rx furosemide 20 mg tablet 20 mg PO DAILY 03/14/20 11/29/20 History spironolactone 100 mg tablet 100 mg PO QAM 30 Days #30 tab 07/25/20 11/29/20 Rx cholecalciferol (vitamin D3) 50 50 mcg PO DAILY #90 cap 07/26/20 11/29/20 Rx mcg (2,000 unit) capsule ammonium lactate 5 % lotion 1 applic TOPICAL DAILY #226 g 10/29/20 11/29/20 Rx Allergies Allergy/AdvReac Type Severity Reaction Status Date / Time merbromin Allergy Unknown ALLERGIC Verified 11/29/20 05:10 TO MERCUROCHROME, RASH ciprofloxacin AdvReac Unknown GI SYMPTOMS Verified 11/29/20 05:10 mercury (elemental) AdvReac Unknown Unknown Verified 11/29/20 05:10 sulfamethoxazole AdvReac Unknown GI UPSET, Verified 11/29/20 05:10 FEVER, HEADACHE trimethoprim AdvReac Unknown GI UPSET, Verified 11/29/20 05:10 FEVER, HEADACHE Past Med/Surg History Medical History Actinic keratosis Aortic aneurysm Aortic stenosis, mild Arrhythmia HX Atrial fibrillation Bifascicular bundle branch block BPH (benign prostatic hyperplasia) 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 Chronic cough Chronic obstructive pulmonary disease Duodenal ulcer HX Enlarged prostate with lower urinary tract symptoms (LUTS) History of duodenal ulcer History of edema History of gross hematuria History of hepatitis History of retinal hemorrhage Hypertension Laceration of scalp with delay in treatment Left knee DJD Left shoulder pain Liver cirrhosis Macular degeneration Pneumonia ON ANTIBIOTICS CURRENTLY X 5 DAYS THRU PCP Positive JESSICA (antinuclear antibody) Pulmonary hypertension Retinal hemorrhage Right-sided heart failure Sleep apnea Traumatic hematoma of left upper arm Traumatic open wound of right lower leg with delayed healing Upper respiratory infection 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 Mother , Age 34 No problems noted. Denies family history of Colon cancer Ovarian cancer Prostate cancer Myocardial infarction Breast cancer Social History Smoking Status: Former smoker Number of Years Since Quit: 13; Second Hand Exposure: No; Hx Alcohol Use: Yes Alcohol type: wine Alcohol Intake Frequency Comment: 2 glasses of wine with dinner every day Hx Substance Use: No Preferred Language: Iranian Communication Ability: Effective Visual Impairment: Diminished Hearing Ability: Normal Transfer Clerk Required: No Beliefs That Will Affect Care: None marital status: Current Living Situation: Spouse current occupational status: retired 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 and A total of 10 systems reviewed and were otherwise negative Physical Exam Vital Signs Vital Signs - 24 hr 11/29/20 04:59 11/29/20 05:02 11/29/20 05:40 Temperature 36.8 C Temperature Source Oral Pulse Rate 81 Pulse Rate [Finger] Pulse Rate from SpO2 Sensor Respiratory Rate 18 Respiratory Effort / Characteristics Non-Labored Spontaneous Short of Breath Spontaneous Short of Breath Spontaneous Accessory Muscle Use Labored Short of Breath Respiratory Depth Normal Normal Respiratory Pattern Regular Blood Pressure 133/80 Blood Pressure [Right Arm] Blood Pressure Mean 97 Blood Pressure Mean [Right Arm] Blood Pressure Position [Right Arm] Pulse Oximetry 88 L 93 91 Oxygen Delivery Method Room Air Nasal Cannula Nasal Cannula Oxygen Flow Rate 2 Sepsis Recent Fever Within 48 Hours No Sepsis New/Unexplained Change in Mental Status No Sepsis Action Taken by Nursing No Action Required 11/29/20 05:41 11/29/20 06:41 11/29/20 06:44 Temperature Temperature Source Pulse Rate 77 Pulse Rate [Finger] 77 Pulse Rate from SpO2 Sensor 83 Respiratory Rate 27 H 24 Respiratory Effort / Characteristics Non-Labored Spontaneous Short of Breath Respiratory Depth Normal Respiratory Pattern Regular Blood Pressure 128/75 Blood Pressure [Right Arm] 128/75 Blood Pressure Mean 92 Blood Pressure Mean [Right Arm] 92 Blood Pressure Position [Right Arm] Lying Pulse Oximetry 93 93 Oxygen Delivery Method Nasal Cannula Nasal Cannula Nasal Cannula Oxygen Flow Rate 2 2 Sepsis Recent Fever Within 48 Hours Sepsis New/Unexplained Change in Mental Status Sepsis Action Taken by Nursing 11/29/20 06:55 11/29/20 07:00 11/29/20 07:01 Temperature Temperature Source Pulse Rate 69 74 79 Pulse Rate [Finger] Pulse Rate from SpO2 Sensor 76 78 79 Respiratory Rate 31 H 24 19 Respiratory Effort / Characteristics Respiratory Depth Respiratory Pattern Blood Pressure 129/78 Blood Pressure [Right Arm] Blood Pressure Mean 95 Blood Pressure Mean [Right Arm] Blood Pressure Position [Right Arm] Pulse Oximetry 92 93 92 Oxygen Delivery Method Nasal Cannula Nasal Cannula Nasal Cannula Oxygen Flow Rate 2 3 3 Sepsis Recent Fever Within 48 Hours Sepsis New/Unexplained Change in Mental Status Sepsis Action Taken by Nursing 11/29/20 07:30 11/29/20 07:31 11/29/20 08:00 Temperature Temperature Source Pulse Rate 75 87 68 Pulse Rate [Finger] Pulse Rate from SpO2 Sensor 72 73 75 Respiratory Rate 26 H 29 H 29 H Respiratory Effort / Characteristics Respiratory Depth Respiratory Pattern Blood Pressure 119/71 Blood Pressure [Right Arm] Blood Pressure Mean 87 Blood Pressure Mean [Right Arm] Blood Pressure Position [Right Arm] Pulse Oximetry 93 90 92 Oxygen Delivery Method Nasal Cannula Nasal Cannula Nasal Cannula Oxygen Flow Rate 3 3 3 Sepsis Recent Fever Within 48 Hours Sepsis New/Unexplained Change in Mental Status Sepsis Action Taken by Nursing 11/29/20 08:01 11/29/20 08:30 11/29/20 08:31 Temperature Temperature Source Pulse Rate 79 72 87 Pulse Rate [Finger] Pulse Rate from SpO2 Sensor 79 85 81 Respiratory Rate 22 22 25 H Respiratory Effort / Characteristics Respiratory Depth Respiratory Pattern Blood Pressure 98/73 L 134/83 Blood Pressure [Right Arm] Blood Pressure Mean 81 100 Blood Pressure Mean [Right Arm] Blood Pressure Position [Right Arm] Pulse Oximetry 90 93 92 Oxygen Delivery Method Nasal Cannula Nasal Cannula Nasal Cannula Oxygen Flow Rate Sepsis Recent Fever Within 48 Hours Sepsis New/Unexplained Change in Mental Status Sepsis Action Taken by Nursing GENERAL: alert, ill appearing, well nourished, no distress, non-toxic EYE EXAM: normal conjunctiva, PERRL and EOM's grossly intact OROPHARYNX: no exudate, no erythema, lips, buccal mucosa, and tongue normal and mucous membranes are moist NECK: supple, no nuchal rigidity, no adenopathy, non-tender LUNGS: Clear to auscultation. Normal chest wall mechanics, no w/r/r HEART: no murmurs, S1 normal and S2 normal ABDOMEN: abdomen soft, non-tender, normo-active bowel sounds, no masses, no rebound or guarding. BACK: Back is symmetrical on inspection and there is no deformity, no midline tenderness, no CVA tenderness. SKIN: no rashes and no bruising UPPER EXTREMITIES: upper extremities are grossly normal. FROM, nml pulses b/l. LOWER EXTREMITIES: No pitting edema. FROM, nml pulses b/l. NEURO EXAM: Normal sensorium, cranial nerves II-XII grossly intact, normal speech, no gross weakness of arms, no gross weakness of legs. Gross sensation intact. Course Course 654: Vital signs stable, pulse ox 92% on nasal cannula. 07: Discussed with Dr. Lopez, hospitalist service. Administered Medications Albuterol (Albut/Ipratrop 3mg/0.5mg Neb 3 Ml Vial) 3 ml NEB QIDR TONY Stop: 12/29/20 10:59 Last Admin: 11/29/20 19:57 Dose: 3 ml Documented by: [id number] Admin: 11/29/20 15:08 Dose: 3 ml Documented by: [id number] Admin: 11/29/20 11:34 Dose: 3 ml Documented by: [id number] Cyanocobalamin (Cyanocobalamin 500 Mcg Tablet (Vitamin B-12)) 1,000 mcg PO HS [facility] Stop: 12/29/20 20:59 Last Admin: 11/29/20 21:09 Dose: 1,000 mcg Documented by: [id number] Enoxaparin Sodium (Enoxaparin Inj 40 Mg/0.4 Ml Syr) 40 mg SQ DAILY TONY Stop: 12/29/20 10:29 Last Admin: 11/29/20 11:07 Dose: 40 mg Documented by: [id number] Guaifenesin (Guaifenesin 600 Mg Tabcr) 1,200 mg PO Q12 TONY Stop: 12/29/20 10:29 Last Admin: 11/29/20 21:09 Dose: 1,200 mg Documented by: [id number] Admin: 11/29/20 11:05 Dose: 1,200 mg Documented by: [id number] Doxycycline Hyclate 100 mg/ (Dextrose) 110 mls @ 50 mls/hr IV Q12 TONY; Protocol Stop: 12/06/20 10:29 Last Admin: 11/29/20 21:10 Dose: 50 mls/hr Documented by: [id number] Infusion: 11/29/20 13:15 Dose: 0 mls/hr Documented by: [id number] Admin: 11/29/20 11:07 Dose: 50 mls/hr Documented by: [id number] Lactic Acid (Ammonium Lactate 12% Lotion 225 Gm Btl) 1 gm EXT DAILY TONY Stop: 12/29/20 10:29 Last Admin: 11/29/20 11:07 Dose: 1 gm Documented by: [id number] Spironolactone (Spironolactone 100 Mg Tab) 100 mg PO QAM TONY Stop: 12/29/20 10:29 Last Admin: 11/29/20 12:25 Dose: 100 mg Documented by: [id number] Terazosin HCl (Terazosin Hcl 5 Mg Cap) 10 mg PO HS TONY Stop: 12/29/20 20:59 Last Admin: 11/29/20 21:09 Dose: 10 mg Documented by: [id number] Vitamin D (Cholecalciferol 1,000 Units 25 Mcg Tab) 2,000 units PO DAILY@1700 TONY Stop: 12/29/20 16:59 Last Admin: 11/29/20 16:40 Dose: 2,000 units Documented by: [id number] Discontinued Medications Piperacillin Sod/Tazobactam Sod (Zosyn) 4.5 gm in 120 mls @ 240 mls/hr IV NOW ONE Stop: 11/29/20 06:01 Last Infusion: 11/29/20 06:18 Dose: 0 mls/hr Documented by: [id number] Admin: 11/29/20 05:44 Dose: 240 mls/hr Documented by: [id number] Cefepime HCl (Maxipime) 2,000 mg in 20 mls @ 5 mls/min IV NOW STA Stop: 11/29/20 05:36 Last Admin: 11/29/20 05:44 Dose: 5 mls/min Documented by: [id number] Vancomycin HCl 1,500 mg/ (Sodium Chloride) 530 mls @ 200 mls/hr IV NOW ONE Stop: 11/29/20 09:20 Last Infusion: 11/29/20 09:52 Dose: 0 mls/hr Documented by: [id number] Admin: 11/29/20 07:15 Dose: 200 mls/hr Documented by: [id number] Furosemide 40 mg/ Syringe 4 mls @ 4 mls/min IV ONE ONE Stop: 11/29/20 10:31 Last Admin: 11/29/20 11:06 Dose: 4 mls/min Documented by: [id number] Ioversol (Optiray 320 125ml) 120 ml IV ONCE ONE Stop: 11/29/20 06:31 Last Admin: 11/29/20 06:31 Dose: 120 ml Documented by: [id number] Medical Decision Making Differential Diagnosis Differential diagnoses includes but is not limited to pneumonia, bronchitis, COPD/Asthma exacerbation, pneumothorax, pulmonary embolism, congestive heart failure, acute coronary syndrome Medical Records Attestation: I reviewed the patient's medical records. Home Medications Current Medication List: was personally reviewed by me Laboratory Data Attestation: I reviewed the patient's lab results. Result diagrams: 11/29/20 05:00 11/29/20 05:00 Lab Results 11/29/20 11/29/20 11/29/20 Range/Units 05:00 05:00 05:00 WBC 5.75 (4.8-10.8) K/uL RBC 4.03 L (4.7-6.1) M/uL Hgb 12.2 L (14.0-18.0) g/dL Hct 37.6 L (42-52) % MCV 93.3 (80-100) fL MCH 30.3 (25-34) pg MCHC 32.4 (32-36) g/dL RDW Std Deviation 52.4 H (36.4-46.3) fL RDW Coeff of Chel 15.2 H (11.5-14.5) % Plt Count 199 (130-400) K/uL MPV 8.9 (7.4-10.4) fL Immature Gran % (Auto) 0.2 % Neut % (Auto) 59.6 % Lymph % (Auto) 17.6 % [place] % (Auto) 9.4 % Eos % (Auto) 11.8 % Baso % (Auto) 1.4 % Neut # (Auto) 3.43 (1.4-6.5) K/uL Lymph # (Auto) 1.01 L (1.2-3.4) K/uL [place] # (Auto) 0.54 (0.11-0.59) K/uL Eos # (Auto) 0.68 H (0-0.5) K/uL Baso # (Auto) 0.08 (0-0.2) K/uL Immature Gran # (Auto) 0.01 (0.00-0.02) K/uL PT (9.0-12.0) Seconds INR (0.9-1.1) APTT (21.0-31.0) Seconds PTT Ratio Sodium 137 (136-145) mmol/L Potassium 4.3 (3.5-5.1) mmol/L Chloride 104 (98-107) mmol/L Carbon Dioxide 26 (21-32) mmol/L Anion Gap 7.0 (3-11) BUN 16 (7-18) mg/dl Creatinine 1.01 (0.6-1.4) mg/dl Est Cr Clr Drug Dosing 53.2 ml/min Est GFR ( Amer) 77.2 Est GFR (Non-Af Amer) 66.6 BUN/Creatinine Ratio 16.3 (10-20) Glucose 88 (70-99) mg/dl Lactate (0.4-2.0) mmol/L Calcium 9.0 (8.5-10.1) mg/dl Magnesium 2.4 (1.8-2.4) mg/dl Total Bilirubin 2.1 H (0.2-1) mg/dl AST 40 H (15-37) U/L ALT 23 (12-78) U/L Alkaline Phosphatase 228 H (45-117) U/L Troponin I 0.023 (0-0.045) ng/ml NT-Pro-B Natriuret Pep 2762 H (0-1800) pg/ml Total Protein 8.0 (6.4-8.2) gm/dl Albumin 3.4 (3.4-5.0) gm/dl Globulin 4.6 H (2.5-4.0) gm/dl Albumin/Globulin Ratio 0.7 L (0.9-2) Procalcitonin 0.05 (0-0.5) ng/ml Urine Color Urine Appearance (Clear) Urine pH (4.5-7.5) Ur Specific [place] (1.000-1.030) Urine Protein (Negative) Urine Glucose (UA) (Negative) Urine Ketones (Negative) Urine Blood (Negative) Urine Nitrite (Negative) Urine Bilirubin (Negative) Urine Urobilinogen (Negative) Ur Leukocyte Esterase (Negative) Urine WBC (Auto) (0-5) /hpf Urine RBC (Auto) (0-4) /hpf U Hyaline Cast (Auto) (0-5) /lpf U Epithel Cells (Auto) (0-5) /lpf Urine Bacteria (Auto) (Negative) COVID-19 Eval Order SARS-CoV-2, RNA, NAAT (NEGATIVE) 11/29/20 11/29/20 11/29/20 Range/Units 05:00 05:27 06:00 WBC (4.8-10.8) K/uL RBC (4.7-6.1) M/uL Hgb (14.0-18.0) g/dL Hct (42-52) % MCV (80-100) fL MCH (25-34) pg MCHC (32-36) g/dL RDW Std Deviation (36.4-46.3) fL RDW Coeff of Chel (11.5-14.5) % Plt Count (130-400) K/uL MPV (7.4-10.4) fL Immature Gran % (Auto) % Neut % (Auto) % Lymph % (Auto) % [place] % (Auto) % Eos % (Auto) % Baso % (Auto) % Neut # (Auto) (1.4-6.5) K/uL Lymph # (Auto) (1.2-3.4) K/uL [place] # (Auto) (0.11-0.59) K/uL Eos # (Auto) (0-0.5) K/uL Baso # (Auto) (0-0.2) K/uL Immature Gran # (Auto) (0.00-0.02) K/uL PT 13.3 H (9.0-12.0) Seconds INR 1.3 H (0.9-1.1) APTT 46.5 H* (21.0-31.0) Seconds PTT Ratio 1.8 Sodium (136-145) mmol/L Potassium (3.5-5.1) mmol/L Chloride (98-107) mmol/L Carbon Dioxide (21-32) mmol/L Anion Gap (3-11) BUN (7-18) mg/dl Creatinine (0.6-1.4) mg/dl Est Cr Clr Drug Dosing ml/min Est GFR ( Amer) Est GFR (Non-Af Amer) BUN/Creatinine Ratio (10-20) Glucose (70-99) mg/dl Lactate 1.0 (0.4-2.0) mmol/L Calcium (8.5-10.1) mg/dl Magnesium (1.8-2.4) mg/dl Total Bilirubin (0.2-1) mg/dl AST (15-37) U/L ALT (12-78) U/L Alkaline Phosphatase (45-117) U/L Troponin I (0-0.045) ng/ml NT-Pro-B Natriuret Pep (0-1800) pg/ml Total Protein (6.4-8.2) gm/dl Albumin (3.4-5.0) gm/dl Globulin (2.5-4.0) gm/dl Albumin/Globulin Ratio (0.9-2) Procalcitonin (0-0.5) ng/ml Urine Color Urine Appearance (Clear) Urine pH (4.5-7.5) Ur Specific [place] (1.000-1.030) Urine Protein (Negative) Urine Glucose (UA) (Negative) Urine Ketones (Negative) Urine Blood (Negative) Urine Nitrite (Negative) Urine Bilirubin (Negative) Urine Urobilinogen (Negative) Ur Leukocyte Esterase (Negative) Urine WBC (Auto) (0-5) /hpf Urine RBC (Auto) (0-4) /hpf U Hyaline Cast (Auto) (0-5) /lpf U Epithel Cells (Auto) (0-5) /lpf Urine Bacteria (Auto) (Negative) COVID-19 Eval Order Covid19 [facility]Now [facility] SARS-CoV-2, RNA, NAAT (NEGATIVE) 11/29/20 11/29/20 Range/Units 06:00 06:20 WBC (4.8-10.8) K/uL RBC (4.7-6.1) M/uL Hgb (14.0-18.0) g/dL Hct (42-52) % MCV (80-100) fL MCH (25-34) pg MCHC (32-36) g/dL RDW Std Deviation (36.4-46.3) fL RDW Coeff of Chel (11.5-14.5) % Plt Count (130-400) K/uL MPV (7.4-10.4) fL Immature Gran % (Auto) % Neut % (Auto) % Lymph % (Auto) % [place] % (Auto) % Eos % (Auto) % Baso % (Auto) % Neut # (Auto) (1.4-6.5) K/uL Lymph # (Auto) (1.2-3.4) K/uL [place] # (Auto) (0.11-0.59) K/uL Eos # (Auto) (0-0.5) K/uL Baso # (Auto) (0-0.2) K/uL Immature Gran # (Auto) (0.00-0.02) K/uL PT (9.0-12.0) Seconds INR (0.9-1.1) APTT (21.0-31.0) Seconds PTT Ratio Sodium (136-145) mmol/L Potassium (3.5-5.1) mmol/L Chloride (98-107) mmol/L Carbon Dioxide (21-32) mmol/L Anion Gap (3-11) BUN (7-18) mg/dl Creatinine (0.6-1.4) mg/dl Est Cr Clr Drug Dosing ml/min Est GFR ( Amer) Est GFR (Non-Af Amer) BUN/Creatinine Ratio (10-20) Glucose (70-99) mg/dl Lactate (0.4-2.0) mmol/L Calcium (8.5-10.1) mg/dl Magnesium (1.8-2.4) mg/dl Total Bilirubin (0.2-1) mg/dl AST (15-37) U/L ALT (12-78) U/L Alkaline Phosphatase (45-117) U/L Troponin I (0-0.045) ng/ml NT-Pro-B Natriuret Pep (0-1800) pg/ml Total Protein (6.4-8.2) gm/dl Albumin (3.4-5.0) gm/dl Globulin (2.5-4.0) gm/dl Albumin/Globulin Ratio (0.9-2) Procalcitonin (0-0.5) ng/ml Urine Color Dark Yellow Urine Appearance Clear (Clear) Urine pH 6.0 (4.5-7.5) Ur Specific [place] 1.027 (1.000-1.030) Urine Protein 1+ H (Negative) Urine Glucose (UA) Negative (Negative) Urine Ketones Trace H (Negative) Urine Blood Trace H (Negative) Urine Nitrite Negative (Negative) Urine Bilirubin 1+ H (Negative) Urine Urobilinogen Negative (Negative) Ur Leukocyte Esterase 1+ H (Negative) Urine WBC (Auto) 5-10 H (0-5) /hpf Urine RBC (Auto) 5-10 H (0-4) /hpf U Hyaline Cast (Auto) 1-5 (0-5) /lpf U Epithel Cells (Auto) >30 H (0-5) /lpf Urine Bacteria (Auto) Negative (Negative) COVID-19 Eval Order SARS-CoV-2, RNA, NAAT NEGATIVE (NEGATIVE) Imaging Data My Impression: X-ray: I interpreted the following studies. Chest: A single view study of the chest was reviewed and was negative for effusion, pulmonary edema, or wide mediastinum. Mild cardiomegaly noted, increased markings at the right base suggestive of evolving pneumonia. Radiologist's Impression: CT angio chest PE protocol CT DOSE: 454.11 mGycm HISTORY: 85 years-old Male with PE. Acute cough with shortness of breath TECHNIQUE: Multiple CTA images of the chest were obtained after the intravenous administration of 120 ml Optiray 320. Coronal and sagittal MIPS were obtained from the axial data set and were submitted for review. All measurements were obtained according to NASCET criteria. A dose lowering technique was utilized adhering to the principles of ALARA. COMPARISON: Chest radiograph of same day, chest CT 07/06/2019 FINDINGS: CTA: Moderate cardiomegaly. Mild coronary artery calcifications. Extensive atheromatous plaque of the thoracic aorta. Unchanged saccular saccular aneurysm measuring 1.6 cm in AP dimension involves the lateral margin of the thoracic aortic arch on image 206. Suboptimal evaluation of the thoracic aorta secondary to contrast bolus timing. Dilated pulmonary artery measures approximately 4 cm transversely. Reflux of contrast into the IVC and hepatic veins. Pulmonary a rtery is opacified to the level of the subsegmental branches and demonstrates no filling defects to suggest thromboembolic disease. Respiratory motion artifact limits evaluation of the lung bases. CT CHEST: Unremarkable thyroid. Calcified mediastinal lymph nodes in addition to calcified pulmonary granulomata suggest prior granulomatous disease. No pathologically enlarged lymph nodes. There are small bilateral pleural effusions. No pneumothorax. Mild bilateral bronchial wall thickening. Dependent bibasilar groundglass and linear consolidative densities. No suspicious pulmonary nodules. There are a few scattered low suspicion nodules measuring up to 3 mm. Central airways are patent. No airspace consolidation typical for pneumonia. Cirrhosis with small volume of upper abdominal ascites. Gynecomastia. Degenerative changes of the shoulders and spine. There is no acute fracture. IMPRESSION: 1. Cardiomegaly without evidence of pulmonary emboli. 2. Unchanged 1.6 cm saccular aneurysm involves the lateral margin of the thoracic aortic arch. 3. Findings suggestive of pulmonary artery hypertension. 4. Small pleural effusions with bibasilar dependent opacities suggestive of atelectasis. 5. Mild bronchial wall thickening may reflect bronchitis versus reactive airway disease. 6. Cirrhosis with small volume of upper abdominal ascites. ACT 112: Negative or not required by law. The above report was generated using voice recognition software. It may contain grammatical, syntax or spelling errors. Electronically signed by: James Rodriguez M.D. 11/29/2020 7:09 AM ECG Data Attestation: I personally reviewed and interpreted this ECG as follows: Indication: + SOB/dyspnea Rate (beats per minute): 76 Rhythm: + atrial fibrillation ECG Intervals/blocks: + IVCD and + Normal QT ECG [place]: + Left axis deviation MDM Narrative This is an 85-year-old male who presents to the abrupt onset of shortness of breath and cough and was found to be hypoxic by EMS. Trial of room air here proved patient to still be hypoxic on arrival. Patient claims some mild chest discomfort, mostly with coughing or attempting to take a deep breath. Patient with multiple chronic comorbidities including atrial fibrillation, cirrhosis, and vascular issues. Patient denied use of home oxygen or respiratory treatments. Given patient's initial ill appearance and significant comorbidities, a sepsis evaluation was initiated. Patient was mildly tachypneic on exam with right lower lobe rhonchi and rales, however initial portable chest x-ray did not appear to correlate with the patient's clinical exam. Labs and cultures drawn and sent, IV antibiotics started as a precaution. In light of incongruence between physical exam and chest x-ray, patient sent for CT of the chest. Patient with chronic appearing pleural effusions, no PE, no focal consolidation, and suggestive of likely bronchitis in my discussion with radiology. Patient remained hemodynamically stable. Patient was not given aggressive fluid resuscitation due to his cardiac status. Patient does take furosemide daily. Case discussed with hospitalist due to hypoxemia and likely underlying respiratory infection. Covid testing was negative. Patient made aware of all results and was in agreement with plan. was allowed to come to bedside once Covid test was negative. An order was placed for continuous cardiac monitoring. The monitor shows a rate of _78_ with _atrial fibrillation_ rhythm. Impression & Plan Dyspnea, Pleural effusion, Hypoxia, Bronchitis, Bilateral edema of lower extremity, Atrial fibrillation Discharge Plan Visit Data Chief Complaint: Shortness of Breath/Dyspnea Stated Complaint: COUGH/SHORT OF BREATH/CONGESTION ED Provider: Jany Pham Discharge Problem: Dyspnea, Pleural effusion, Hypoxia, Bronchitis, Bilateral edema of lower extremity, Atrial fibrillation Patient Disposition: Admitted As Inpatient Discharge Instructions Interventions: ED Discharge Assessment Last Done: 11/29/20 09:46 Discharge Problem: Dyspnea Qualifiers: Dyspnea type: shortness of breath Qualified Code(s): R06.02 - Shortness of breath Atrial fibrillation Qualifiers: Atrial fibrillation type: unspecified chronic Qualified Code(s): I48.20 - Chronic atrial fibrillation, unspecified
[2020-11-29] MEDS ORDERED: PIPERACILLIN/TAZOBACTAM 4.5 GM/120 ML BAG IV ONE (05:32)
[2020-11-29] MEDS ORDERED: PIPERACILL/TAZOBAC CONSULT ACTIVE PRN (05:32)
[2020-11-29] MEDS ORDERED: CEFEPIME 2,000 MG/20 ML VIAL IV STA (05:33)
[2020-11-29] MEDS ORDERED: PIPERACILLIN/TAZOBACTAM 4.5 GM/120ML D5W ONE (05:42)
[2020-11-29] MEDS ORDERED: CEFEPIME 2,000 MG/20 ML VIAL ONE (05:42)
[2020-11-29 05:52] LABS: Albumin Level 3.4 gm/dl (3.4-5.0); BUN Creatinine Ratio 16.3 (10-20); Creatinine Clr Calc Pharmacy 53.2 ml/min; Est GFR (African American) 77.2; Est GFR (Non-African American) 66.6; Magnesium 2.4 mg/dl (1.8-2.4); Potassium 4.3 mmol/L (3.5-5.1)
[2020-11-29 05:53] LABS: INR 1.3 (0.9-1.1); Partial Thromboplastin Ratio 1.8; Prothrombin Time 13.3 Seconds (9.0-12.0)
[2020-11-29 05:57] LABS: Albumin Globulin Ratio 0.7 (0.9-2); Bilirubin,Total 2.1 mg/dl (0.2-1); Globulin 4.6 gm/dl (2.5-4.0); Troponin I 0.023 ng/ml (0-0.045)
[2020-11-29 06:00] LABS: Partial Thromboplastin Time 46.5 Seconds (21.0-31.0)
--- NOTE | 2020-11-29 06:28 | XRay Report ---
XR chest 1V portable HISTORY: 85 years-old Male SEPSIS acute sepsis COMPARISON: CT abdomen and pelvis 11/26/2020, chest radiograph 03/02/2020 TECHNIQUE: Portable AP view of the chest FINDINGS: Moderate cardiomegaly. Calcified plaque of the thoracic aortic arch. Small pleural effusions. No over t pulmonary edema. Mild bibasilar opacities No pneumothorax. Degenerative changes of the shoulders an d spine. IMPRESSION: 1. Cardiomegaly without overt pulmonary edema. 2. Small pleural effusions with mild bibasilar opacities suggestive of probable atelectasis. ACT 112: Negative or not required by law. The above report was generated using voice recognition software. It may contain grammatical, syntax o r spelling errors. Electronically signed by: James Rodriguez M.D. 11/29/2020 6:27 AM
[2020-11-29] MEDS ORDERED: OPTIRAY 320 125ml IV ONE (06:30)
[2020-11-29 06:34] LABS: Appearance Urine Clear (Clear); Bacteria Urine Automated Negative (Negative); Blood Urine Trace (Negative); Color Urine Dark Yellow; Epithelial Cell Urine Auto >30 /lpf (0-5); Glucose Urine UA Negative (Negative); Ketones Urine Trace (Negative); Leukocyte Esterase Urine 1+ (Negative); Nitrite Urine Negative (Negative); Protein Urine 1+ (Negative); Specific Gravity Urine 1.027 (1.000-1.030); Urobilinogen Urine Negative (Negative)
[2020-11-29] MEDS ORDERED: VANCOMYCIN CONSULT ACTIVE PRN (06:42)
[2020-11-29] MEDS ORDERED: VANCOMYCIN HCL 1,500 MG in SODIUM CHLORIDE 0.9% 500 ML IV ONE (06:42)
[2020-11-29 06:46] LABS: Bilirubin Urine 1+ (Negative)
--- NOTE | 2020-11-29 07:10 | CT Scan Report ---
CT angio chest PE protocol CT DOSE: 454.11 mGycm HISTORY: 85 years-old Male with PE. Acute cough with shortness of breath TECHNIQUE: Multiple CTA images of the chest were obtained after the intravenous administration of 120 ml Optiray 320. Coronal and sagittal MIPS were obtained from the axial data set and were submitted for review. All measurements were obtained according to NASCET criteria. A dose lowering technique w as utilized adhering to the principles of ALARA. COMPARISON: Chest radiograph of same day, chest CT 07/06/2019 FINDINGS: CTA: Moderate cardiomegaly. Mild coronary artery calcifications. Extensive atheromatous plaque of the thor acic aorta. Unchanged saccular saccular aneurysm measuring 1.6 cm in AP dimension involves the latera l margin of the thoracic aortic arch on image 206. Suboptimal evaluation of the thoracic aorta second cliff to contrast bolus timing. Dilated pulmonary artery measures approximately 4 cm transversely. Refl ux of contrast into the IVC and hepatic veins. Pulmonary artery is opacified to the level of the subs egmental branches and demonstrates no filling defects to suggest thromboembolic disease. Respiratory motion artifact limits evaluation of the lung bases. CT CHEST: Unremarkable thyroid. Calcified mediastinal lymph nodes in addition to calcified pulmonary granulomat a suggest prior granulomatous disease. No pathologically enlarged lymph nodes. There are small bilate ral pleural effusions. No pneumothorax. Mild bilateral bronchial wall thickening. Dependent bibasilar groundglass and linear consolidative densities. No suspicious pulmonary nodules. There are a few sca ttered low suspicion nodules measuring up to 3 mm. Central airways are patent. No airspace consolidat ion typical for pneumonia. Cirrhosis with small volume of upper abdominal ascites. Gynecomastia. Degenerative changes of the veronica ulders and spine. There is no acute fracture. IMPRESSION: 1. Cardiomegaly without evidence of pulmonary emboli. 2. Unchanged 1.6 cm saccular aneurysm involves the lateral margin of the thoracic aortic arch. 3. Findings suggestive of pulmonary artery hypertension. 4. Small pleural effusions with bibasilar dependent opacities suggestive of atelectasis. 5. Mild bronchial wall thickening may reflect bronchitis versus reactive airway disease. 6. Cirrhosis with small volume of upper abdominal ascites. ACT 112: Negative or not required by law. The above report was generated using voice recognition software. It may contain grammatical, syntax o r spelling errors. Electronically signed by: James Rodriguez M.D. 11/29/2020 7:09 AM
--- NOTE | 2020-11-29 09:07 | History & Physical Report ---
Date of Service November 29, 2020 Assessment & Plan (1) Acute respiratory failure with hypoxia: likely due to acute bronchitis, upper airway inflammation/constriction Duonebs qid scheduled for the first 24 hours and q2h PRN Mucinex 1200mg BID Doxycycline 100mg BID for atypical coverage Flutter valve to help break up phlegm no wheezing so will hold on systemic steroids hopeful that hypoxemia will resolve in the next 1-2 days with the above measures could be a small component of volume overload, see below (2) Acute bronchitis: Duonebs, Mucinex, Doxycycline, Flutter valve (3) Acute on chronic combined systolic (congestive) and diastolic (congestive) heart failure: edema in legs, appears a little volume overloaded typically on Lasix 20mg PO daily and spironolactone will give Lasix 40mg IV on admission and look for response, continue spironolactone BMP shows Cr and K stable BNP is elevated at 2700 (4) Chronic venous insufficiency: no acute changes in legs (5) Hepatic cirrhosis: (6) Vitamin D deficiency: (7) HTN (hypertension), benign: BP stable on admission (8) Pulmonary hypertension: chronic issue, will give lasix History of Present Illness Chief Complaint: I started feeling short of breath this morning Primary Care Provider: Jose J Antoine MD 85 yo male with history of peripheral vascular disease, actinic keratosis, combined systolic and diastolic heart failure who presents this morning with acute onset of shortness of breath and cough. He says that he has been feeling okay the past few days, no URI symptoms, no sick contacts, he had been eating and drinking well and had a normal BM yesterday. Last night into this morning he started to feel a little more short of breath and started to have a cough. He feels like he needs to cough up some sputum but has been unable to mobilize anything. He said that maybe once or twice he got up some phlegm and it was yellow, no blood seen. He feels like his legs are little more swollen than normal, he does not weight himself so he is not sure if his weight is up. In the ambulance he was hypoxemic on room air with saturations in mid 80s and he was placed on 2L NC. In the emergency room he was a little tachypneic but not in distress, he was confirmed to be hypoxemic with saturations 87% on room air, went up to 92-94% on 2-3L. CXR with no obvious infiltrates and just some small bilateral pleural effusions and atelectasis. CT of the chest with no pneumonia, just the pleural effusions. WBC normal, Cr normal, K normal, BNP is up slightly in the . He was given Zosyn and Vancomycin and admission requested due to hypoxemia. Allergies Allergy/AdvReac Type Severity Reaction Status Date / Time merbromin Allergy Unknown ALLERGIC Verified 11/29/20 05:10 TO MERCUROCHROME, RASH ciprofloxacin AdvReac Unknown GI SYMPTOMS Verified 11/29/20 05:10 mercury (elemental) AdvReac Unknown Unknown Verified 11/29/20 05:10 sulfamethoxazole AdvReac Unknown GI UPSET, Verified 11/29/20 05:10 FEVER, HEADACHE trimethoprim AdvReac Unknown GI UPSET, Verified 11/29/20 05:10 FEVER, HEADACHE Home Medications Medication Instructions Recorded Confirmed Type cyanocobalamin (vitamin B-12) 1,000 mcg PO HS 04/22/19 11/29/20 History 1,000 mcg capsule albuterol sulfate 90 mcg/actuation 2 puffs INH Q6H PRN #18 gm 10/19/19 11/29/20 Rx aerosol inhaler ascorbic acid (vitamin C) 1,000 mg 1 g PO DAILY PRN tab 10/27/19 11/29/20 History tablet terazosin 10 mg capsule 10 mg PO HS #90 cap 01/09/20 11/29/20 Rx furosemide 20 mg tablet 20 mg PO DAILY 03/14/20 11/29/20 History spironolactone 100 mg tablet 100 mg PO QAM 30 Days #30 tab 07/25/20 11/29/20 Rx cholecalciferol (vitamin D3) 50 50 mcg PO DAILY #90 cap 07/26/20 11/29/20 Rx mcg (2,000 unit) capsule ammonium lactate 5 % lotion 1 applic TOPICAL DAILY #226 g 10/29/20 11/29/20 Rx Past Med/Surg History Medical History Actinic keratosis Aortic aneurysm Aortic stenosis, mild Arrhythmia HX Atrial fibrillation Bifascicular bundle branch block BPH (benign prostatic hyperplasia) 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 Chronic cough Chronic obstructive pulmonary disease Duodenal ulcer HX Enlarged prostate with lower urinary tract symptoms (LUTS) History of duodenal ulcer History of edema History of gross hematuria History of hepatitis History of retinal hemorrhage Hypertension Laceration of scalp with delay in treatment Left knee DJD Left shoulder pain Liver cirrhosis Macular degeneration Pneumonia ON ANTIBIOTICS CURRENTLY X 5 DAYS THRU PCP Positive JESSICA (antinuclear antibody) Pulmonary hypertension Retinal hemorrhage Right-sided heart failure Sleep apnea Traumatic hematoma of left upper arm Traumatic open wound of right lower leg with delayed healing Upper respiratory infection 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 Mother , Age 34 No problems noted. Denies family history of Colon cancer Ovarian cancer Prostate cancer Myocardial infarction Breast cancer Social History Smoking Status: Former smoker Number of Years Since Quit: 13; Second Hand Exposure: No; Hx Alcohol Use: Yes Alcohol type: wine Alcohol Intake Frequency Comment: 2 glasses of wine with dinner every day Hx Substance Use: No Preferred Language: Indonesian Communication Ability: Effective Visual Impairment: Diminished Hearing Ability: Normal Predictive Maintenance Technician Required: No Beliefs That Will Affect Care: None marital status: Current Living Situation: Spouse current occupational status: retired 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 Feels Safe at Home: Yes Seatbelt Use: always Assistive Devices: Cane Review of Systems Review of Systems: All systems reviewed & are unremarkable except as noted in HPI & below Constitutional: no fever, no chills, no sweats, no fatigue and no weakness Respiratory: + cough, + chest congestion, + dyspnea, + dyspnea on exertion and + sputum production; no pain with cough and no wheezing Cardiovascular: + edema; no chest pain, no palpitations and no syncope Gastrointestinal: no abdominal pain, no nausea, no vomiting, no constipation and no diarrhea/loose stools Genitourinary: no dysuria, no difficulty urinating and no urinary frequency Musculoskeletal: no back pain, no joint pain, no stiffness and no muscle weakness Integumentary: + erythema (chronic discoloration of legs bilaterally) Neurologic: no gait abnormality, no unsteadiness, no tremor(s), no seizure- like activity and no headache(s) Physical Exam Constitutional: well developed, well nourished, cooperative and comfortable; no acute distress Eyes: PERRL, conjunctivae normal, anicteric sclerae ENMT: external ear and nose normal, oropharynx normal Neck: trachea midline, no thyromegaly Respiratory: normal respiratory effort and + cough; no respiratory distress and no labored breathing Auscultation: + diminished lung sounds (posteriorly) and + rhonchi (bilaterally, anterior); no crackles, no rales and no wheezes Cardiovascular: Rate/Rhythm: regular rate and regular rhythm Heart Sounds: normal S1 and normal S2; no murmur Vessels: no JVD Extremities: normal capillary refill and + edema (1+ pitting in legs bilaterally) Gastrointestinal (Abdomen): normal bowel sounds, soft, nontender, no hepatosplenomegaly Musculoskeletal: no cyanosis or clubbing, extremities motor strength 5/5 Skin: + crusts, + dry skin and + erythema (venous stasis changes bilaterally); no wound Neurologic: patellar DTR's 2+ bilat, sensation intact and PERRL, EOMI, accommodation nl, no face palsy, no dysarthria Psychiatric: A+Ox3, euthymic affect Lymphatic: no cervical or axillary lymphadenopathy Results & Data Results & Data ([facility]) Vital Signs (Past 12 Hours) Vital Signs Temp Pulse Pulse Resp BP BP Pulse Ox 11/29/20 08:31 87 25 H 134/83 92 11/29/20 08:30 72 22 93 11/29/20 08:01 79 22 98/73 L 90 11/29/20 08:00 68 29 H 92 11/29/20 07:31 87 29 H 90 11/29/20 07:30 75 26 H 119/71 93 11/29/20 07:01 79 19 92 11/29/20 07:00 74 24 129/78 93 11/29/20 06:55 69 31 H 92 11/29/20 06:44 77 24 128/75 93 11/29/20 06:41 77 27 H 128/75 93 11/29/20 05:40 91 03/04/21 05:02 93 11/29/20 04:59 36.8 C 81 18 133/80 88 L Laboratory Results Laboratory Results - last 24 hr 11/29/20 11/29/20 11/29/20 05:00 05:00 05:00 WBC 5.75 RBC 4.03 L Hgb 12.2 L Hct 37.6 L MCV 93.3 MCH 30.3 MCHC 32.4 RDW Std Deviation 52.4 H RDW Coeff of Chel 15.2 H Plt Count 199 MPV 8.9 Immature Gran % (Auto) 0.2 Neut % (Auto) 59.6 Lymph % (Auto) 17.6 [place] % (Auto) 9.4 Eos % (Auto) 11.8 Baso % (Auto) 1.4 Neut # (Auto) 3.43 Lymph # (Auto) 1.01 L [place] # (Auto) 0.54 Eos # (Auto) 0.68 H Baso # (Auto) 0.08 Immature Gran # (Auto) 0.01 PT INR APTT PTT Ratio Sodium 137 Potassium 4.3 Chloride 104 Carbon Dioxide 26 Anion Gap 7.0 BUN 16 Creatinine 1.01 Est Cr Clr Drug Dosing 53.2 Est GFR ( Amer) 77.2 Est GFR (Non-Af Amer) 66.6 BUN/Creatinine Ratio 16.3 Glucose 88 Lactate Calcium 9.0 Magnesium 2.4 Total Bilirubin 2.1 H AST 40 H ALT 23 Alkaline Phosphatase 228 H Troponin I 0.023 NT-Pro-B Natriuret Pep 2762 H Total Protein 8.0 Albumin 3.4 Globulin 4.6 H Albumin/Globulin Ratio 0.7 L Procalcitonin 0.05 Urine Color Urine Appearance Urine pH Ur Specific [place] Urine Protein Urine Glucose (UA) Urine Ketones Urine Blood Urine Nitrite Urine Bilirubin Urine Urobilinogen Ur Leukocyte Esterase Urine WBC (Auto) Urine RBC (Auto) U Hyaline Cast (Auto) U Epithel Cells (Auto) Urine Bacteria (Auto) COVID-19 Eval Order SARS-CoV-2, RNA, NAAT 11/29/20 11/29/20 11/29/20 05:00 05:27 06:00 WBC RBC Hgb Hct MCV MCH MCHC RDW Std Deviation RDW Coeff of Chel Plt Count MPV Immature Gran % (Auto) Neut % (Auto) Lymph % (Auto) [place] % (Auto) Eos % (Auto) Baso % (Auto) Neut # (Auto) Lymph # (Auto) [place] # (Auto) Eos # (Auto) Baso # (Auto) Immature Gran # (Auto) PT 13.3 H INR 1.3 H APTT 46.5 H* PTT Ratio 1.8 Sodium Potassium Chloride Carbon Dioxide Anion Gap BUN Creatinine Est Cr Clr Drug Dosing Est GFR ( Amer) Est GFR (Non-Af Amer) BUN/Creatinine Ratio Glucose Lactate 1.0 Calcium Magnesium Total Bilirubin AST ALT Alkaline Phosphatase Troponin I NT-Pro-B Natriuret Pep Total Protein Albumin Globulin Albumin/Globulin Ratio Procalcitonin Urine Color Urine Appearance Urine pH Ur Specific [place] Urine Protein Urine Glucose (UA) Urine Ketones Urine Blood Urine Nitrite Urine Bilirubin Urine Urobilinogen Ur Leukocyte Esterase Urine WBC (Auto) Urine RBC (Auto) U Hyaline Cast (Auto) U Epithel Cells (Auto) Urine Bacteria (Auto) COVID-19 Eval Order Covid19 [facility] SARS-CoV-2, RNA, NAAT 11/29/20 11/29/20 06:00 06:20 WBC RBC Hgb Hct MCV MCH MCHC RDW Std Deviation RDW Coeff of Chel Plt Count MPV Immature Gran % (Auto) Neut % (Auto) Lymph % (Auto) [place] % (Auto) Eos % (Auto) Baso % (Auto) Neut # (Auto) Lymph # (Auto) [place] # (Auto) Eos # (Auto) Baso # (Auto) Immature Gran # (Auto) PT INR APTT PTT Ratio Sodium Potassium Chloride Carbon Dioxide Anion Gap BUN Creatinine Est Cr Clr Drug Dosing Est GFR ( Amer) Est GFR (Non-Af Amer) BUN/Creatinine Ratio Glucose Lactate Calcium Magnesium Total Bilirubin AST ALT Alkaline Phosphatase Troponin I NT-Pro-B Natriuret Pep Total Protein Albumin Globulin Albumin/Globulin Ratio Procalcitonin Urine Color Dark Yellow Urine Appearance Clear Urine pH 6.0 Ur Specific [place] 1.027 Urine Protein 1+ H Urine Glucose (UA) Negative Urine Ketones Trace H Urine Blood Trace H Urine Nitrite Negative Urine Bilirubin 1+ H Urine Urobilinogen Negative Ur Leukocyte Esterase 1+ H Urine WBC (Auto) 5-10 H Urine RBC (Auto) 5-10 H U Hyaline Cast (Auto) 1-5 U Epithel Cells (Auto) >30 H Urine Bacteria (Auto) Negative COVID-19 Eval Order SARS-CoV-2, RNA, NAAT NEGATIVE Diagnostic Findings CT chest IMPRESSION: 1. Cardiomegaly without evidence of pulmonary emboli. 2. Unchanged 1.6 cm saccular aneurysm involves the lateral margin of the thoracic aortic arch. 3. Findings suggestive of pulmonary artery hypertension. 4. Small pleural effusions with bibasilar dependent opacities suggestive of atelectasis. 5. Mild bronchial wall thickening may reflect bronchitis versus reactive airway disease. 6. Cirrhosis with small volume of upper abdominal ascites. Code Status & VTE Plan VTE Prophylaxis Plan VTE Prophylaxis will be ordered: Yes PG Care Time/CCT Total # of Minutes Spent Total Time Spent with Patient: Total time spent is greater than 50% in coordi nation of care (as documented) at patient's floor/unit and/or counseling patient: Coding Level of Care Code 23012 Initial Inpt Care Lvl 3 Diagnoses Acute respiratory failure with hypoxia J96.01 Acute bronchitis J20.9 Acute on chronic combined systolic (congestive) and diastolic (congestive) heart failure I50.43 Chronic venous insufficiency I87.2 Hepatic cirrhosis K74.60 Vitamin D deficiency E55.9 HTN (hypertension), benign I10 Pulmonary hypertension I27.20
[2020-11-29] MEDS ORDERED: ALBUT/IPRATROP 3MG/0.5MG NEB 3 ML VIAL NEB PRN (09:49)
[2020-11-29] MEDS ORDERED: POLYETHYLENE (MIRALAX) 17 GM PACK PO PRN (09:49)
[2020-11-29] MEDS ORDERED: FUROSEMIDE 40 MG/4 ML VIAL IV STA (09:49)
[2020-11-29] MEDS ORDERED: ACETAMINOPHEN 325 MG TAB PO PRN (09:49)
[2020-11-29] MEDS ORDERED: ONDANSETRON INJ 2 MG/ML 2 ML VIAL IV PRN (09:49)
[2020-11-29] MEDS ORDERED: FUROSEMIDE 40 MG in SYRINGE 0 ML IV ONE (10:30)
[2020-11-29] MEDS: guaiFENesin 600 MG TABCR PO SCH ×2 (11:05→21:09)
[2020-11-29] MEDS: AMMONIUM LACTATE 12% LOTION 225 GM BTL EXT SCH (11:07)
[2020-11-29] MEDS: ENOXAPARIN INJ 40 MG/0.4 ML SYR SQ SCH (11:07)
[2020-11-29] MEDS: DOXYCYCLINE HYCLATE 100 MG in DEXTROSE 5% 100 ML IV SCH ×2 (11:07→21:10)
[2020-11-29] MEDS: ALBUT/IPRATROP 3MG/0.5MG NEB 3 ML VIAL NEB SCH ×3 (11:34→19:57)
[2020-11-29] MEDS: SPIRONOLACTONE 100 MG TAB PO SCH (12:25)
[2020-11-29] MEDS: CHOLECALCIFEROL 1,000 UNITS 25 MCG TAB PO SCH (16:40)
[2020-11-29] MEDS: TERAZOSIN HCL 5 MG CAP PO SCH (21:09)
[2020-11-29] MEDS: CYANOCOBALAMIN 500 MCG TABLET (VITAMIN B-12) PO SCH (21:09)
--- NOTE | 2020-11-30 05:28 | Electrocardiogram Report ---
Test Reason : Blood Pressure : / mmHG Vent. 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
[2020-11-30 07:07] LABS: Hematocrit (blood only) 32.4 % (42-52); Hemoglobin 10.9 g/dL (14.0-18.0); Mean Corpuscular Hemoglobin 30.6 pg (25-34); Mean Corpuscular Hgb Conc 33.6 g/dL (32-36); Mean Platelet Volume 8.7 fL (7.4-10.4); Platelet Count 174 K/uL (130-400); RDW Coefficient of Variation 15.3 % (11.5-14.5); RDW Standard Deviation 51.4 fL (36.4-46.3); Red Blood Count 3.56 M/uL (4.7-6.1); White Blood Count 4.83 K/uL (4.8-10.8)
[2020-11-30] MEDS: ALBUT/IPRATROP 3MG/0.5MG NEB 3 ML VIAL NEB SCH (07:24)
[2020-11-30 07:35] LABS: BUN Creatinine Ratio 14.2 (10-20); Est GFR (African American) 68.1; Est GFR (Non-African American) 58.7
[2020-11-30] MEDS: guaiFENesin 600 MG TABCR PO SCH ×2 (08:00→20:30)
[2020-11-30] MEDS: AMMONIUM LACTATE 12% LOTION 225 GM BTL EXT SCH (08:01)
[2020-11-30] MEDS: SPIRONOLACTONE 100 MG TAB PO SCH (08:01)
[2020-11-30] MEDS: ENOXAPARIN INJ 40 MG/0.4 ML SYR SQ SCH (08:01)
[2020-11-30] MEDS: DOXYCYCLINE HYCLATE 100 MG in DEXTROSE 5% 100 ML IV SCH ×2 (08:06→20:43)
[2020-11-30] MEDS ORDERED: FUROSEMIDE 20 MG in SYRINGE 0 ML IV ONE (08:15)
[2020-11-30] MEDS: CHOLECALCIFEROL 1,000 UNITS 25 MCG TAB PO SCH (16:29)
[2020-11-30] MEDS: TERAZOSIN HCL 5 MG CAP PO SCH (20:30)
[2020-11-30] MEDS: CYANOCOBALAMIN 500 MCG TABLET (VITAMIN B-12) PO SCH (20:31)
--- NOTE | 2020-11-30 21:05 | Hospitalist Progress Note ---
Date of Service November 30, 2020 Assessment & Plan (1) Acute on chronic combined systolic (congestive) and diastolic (congestive) heart failure: acute right sided heart failure as well, has documented history of pulmonary HTN edema in legs, appears a little volume overloaded and his weight is up by about 10lbs from dry weight good response to Lasix 40mg IV on admission, negative 2 liters gave Lasix 20mg IV this morning, Cr and K are stable repeat BMP, BNP tomorrow morning, check weight likely for discharge but might increase Lasix to 40mg daily (2) Acute respiratory failure with hypoxia: likely due to acute heart failure as well as some bronchitis seen on CT chest Lasix for heart failure, responding well Duonebs qid scheduled for the first 24 hours and q2h PRN Mucinex 1200mg BID Doxycycline 100mg BID x 5 days for atypical coverage Flutter valve to help break up phlegm no wheezing so will hold on systemic steroids down to room air this evening, if he remains stable then d/c to home tomorrow (3) Acute bronchitis: Duonebs, Mucinex, Doxycycline, Flutter valve (4) Chronic venous insufficiency: no acute changes in legs (5) Hepatic cirrhosis: (6) Vitamin D deficiency: (7) HTN (hypertension), benign: BP stable on admission (8) Pulmonary hypertension: chronic issue, will give lasix pressures noted to be 40-50mmHg in 2019 Admission and Anticipated Discharge Date Admission Date: November 29, 2020 Subjective patient responded very well to Lasix 40mg IV yesterday morning, negative 1700mL breathing better, down to 1L and then down to room air in the evening coughing a lot less, still no sputum production he follows with Jolele Jacinto with the CHF clinic, his dry weight is 159lbs, currently he is weighing 169lbs on admission will check weight tomorrow reviewed chart, echo from 2019 shows that EF is 55% but he has severe pulmonary HTN, cor pulmonale his says that they check his weight at home, takes his Lasix as prescribed labs show Cr is stable, gave Lasix 20mg IV this morning Review of Systems Review of Systems: All systems reviewed & are unremarkable except as noted in Subjective Respiratory: + cough, + chest congestion and + dyspnea on exertion; no dyspnea, no pain with cough and no sputum production Cardiovascular: + edema Physical Exam Constitutional: well developed, well nourished, cooperative and comfortable; no acute distress Neck: trachea midline, no thyromegaly Respiratory: normal respiratory effort and + cough; no respiratory distress and no labored breathing Auscultation: + diminished lung sounds (posteriorly); no crackles, no rales, no rhonchi and no wheezes Cardiovascular: Rate/Rhythm: regular rate and regular rhythm Heart Sounds: normal S1 and normal S2; no murmur Vessels: no JVD Extremities: normal capillary refill and + edema (1+ pitting in legs bilaterally) Gastrointestinal (Abdomen): normal bowel sounds, soft, nontender, no hepatosplenomegaly Musculoskeletal: no cyanosis or clubbing, extremities motor strength 5/5 Skin: + crusts, + dry skin and + erythema (venous stasis changes bilaterally); no wound Neurologic: patellar DTR's 2+ bilat, sensation intact and PERRL, EOMI, accommodation nl, no face palsy, no dysarthria Psychiatric: A+Ox3, euthymic affect Lymphatic: no cervical or axillary lymphadenopathy Results & Data Results & Data ([facility]) Vital Signs (Past 12 Hours) Vital Signs Temp Pulse Resp BP Pulse Ox 11/30/20 14:44 36.7 C 82 20 101/63 90 11/30/20 13:15 96 Laboratory Results Laboratory Results - last 24 hr 11/30/20 11/30/20 06:54 06:54 WBC 4.83 RBC 3.56 L Hgb 10.9 L Hct 32.4 L MCV 91.0 MCH 30.6 MCHC 33.6 RDW Std Deviation 51.4 H RDW Coeff of Chel 15.3 H Plt Count 174 MPV 8.7 Sodium 135 L Potassium 4.0 Chloride 102 Carbon Dioxide 28 Anion Gap 5.0 BUN 16 Creatinine 1.12 Est Cr Clr Drug Dosing 48.0 Est GFR ( Amer) 68.1 Est GFR (Non-Af Amer) 58.7 BUN/Creatinine Ratio 14.2 Glucose 96 Calcium 9.0 Medications Administered Current Inpatient Medications Acetaminophen (Acetaminophen 325 Mg Tab) 650 mg PO Q4H PRN PRN Reason: pain/fever Stop: 12/29/20 09:48 Albuterol (Albut/Ipratrop 3mg/0.5mg Neb 3 Ml Vial) 3 ml NEB Q2R PRN PRN Reason: Dyspnea Stop: 12/29/20 09:48 Cyanocobalamin (Cyanocobalamin 500 Mcg Tablet (Vitamin B-12)) 1,000 mcg PO HS [facility] Stop: 12/29/20 20:59 Last Admin: 11/30/20 20:31 Dose: 1,000 mcg Documented by: Enoxaparin Sodium (Enoxaparin Inj 40 Mg/0.4 Ml Syr) 40 mg SQ DAILY [facility] Stop: 12/29/20 10:29 Last Admin: 11/30/20 08:01 Dose: 40 mg Documented by: Guaifenesin (Guaifenesin 600 Mg Tabcr) 1,200 mg PO Q12 [facility] Stop: 12/29/20 10:29 Last Admin: 11/30/20 20:30 Dose: 1,200 mg Documented by: Doxycycline Hyclate 100 mg/ (Dextrose) 110 mls @ 50 mls/hr IV Q12 [facility]; Protocol Stop: 12/06/20 10:29 Last Admin: 11/30/20 20:43 Dose: 50 mls/hr Documented by: Lactic Acid (Ammonium Lactate 12% Lotion 225 Gm Btl) 1 gm EXT DAILY [facility] Stop: 12/29/20 10:29 Last Admin: 11/30/20 08:01 Dose: 1 gm Documented by: Ondansetron HCl (Ondansetron Inj 2 Mg/Ml 2 Ml Vial) 4 mg IV Q6H PRN PRN Reason: Nausea Stop: 12/29/20 09:48 Polyethylene Glycol (Polyethylene (Miralax) 17 Gm Pack) 17 gm PO DAILY PRN PRN Reason: Constipation Stop: 12/29/20 09:48 Last Admin: 11/30/20 08:04 Dose: 17 gm Documented by: Spironolactone (Spironolactone 100 Mg Tab) 100 mg PO QAM [facility] Stop: 12/29/20 10:29 Last Admin: 11/30/20 08:01 Dose: 100 mg Documented by: Terazosin HCl (Terazosin Hcl 5 Mg Cap) 10 mg PO [facility] Stop: 12/29/20 20:59 Last Admin: 11/30/20 20:30 Dose: 10 mg Documented by: Vitamin D (Cholecalciferol 1,000 Units 25 Mcg Tab) 2,000 units PO DAILY@1700 [facility] Stop: 12/29/20 16:59 Last Admin: 11/30/20 16:29 Dose: 2,000 units Documented by: PG Care Time/CCT Total # of Minutes Spent Total Time Spent: 31 Total Time Spent with Patient: Total time spent is greater than 50% in coordination of care (as documented) at patient's floor/unit and/or counseling patient: 10 minutes speaking with at the bedside 21 minutes on chart review, documentation, plan, examination, visiting with patient this morning and discussing plan with RN Coding Level of Care Code 14383 Subseq Hosp Care Lvl 3 Diagnoses Acute on chronic combined systolic (congestive) and diastolic (congestive) heart failure I50.43 Acute respiratory failure with hypoxia J96.01 Acute bronchitis J20.9 Chronic venous insufficiency I87.2 Hepatic cirrhosis K74.60 Vitamin D deficiency E55.9 HTN (hypertension), benign I10 Pulmonary hypertension I27.20
[2020-11-30] MEDS ORDERED: SODIUM CHLORIDE 0.65% NA SOLN 45 ML (OCEAN) PRN (23:51)
[2020-12-01 06:54] LABS: BUN Creatinine Ratio 15.4 (10-20); Calcium 9.2 mg/dl (8.5-10.1); Creatinine Clr Calc Pharmacy 51.5 ml/min; Est GFR (African American) 74.5; Est GFR (Non-African American) 64.3; Potassium 4.3 mmol/L (3.5-5.1)
[2020-12-01] MEDS: guaiFENesin 600 MG TABCR PO SCH (08:20)
[2020-12-01] MEDS: ENOXAPARIN INJ 40 MG/0.4 ML SYR SQ SCH (08:20)
[2020-12-01] MEDS: SPIRONOLACTONE 100 MG TAB PO SCH (08:20)
[2020-12-01] MEDS: AMMONIUM LACTATE 12% LOTION 225 GM BTL EXT SCH (08:24)
[2020-12-01] MEDS: DOXYCYCLINE HYCLATE 100 MG in DEXTROSE 5% 100 ML IV SCH (08:27)
--- NOTE | 2020-12-01 13:45 | Discharge Summary ---
Date of Service December 01, 2020 Admission HPI Per Admitting Provider 85 yo male with history of peripheral vascular disease, actinic keratosis, combined systolic and diastolic heart failure who presents this morning with acute onset of shortness of breath and cough. He says that he has been feeling okay the past few days, no URI symptoms, no sick contacts, he had been eating and drinking well and had a normal BM yesterday. Last night into this morning he started to feel a little more short of breath and started to have a cough. He feels like he needs to cough up some sputum but has been unable to mobilize anything. He said that maybe once or twice he got up some phlegm and it was yellow, no blood seen. He feels like his legs are little more swollen than normal, he does not weight himself so he is not sure if his weight is up. In the ambulance he was hypoxemic on room air with saturations in mid 80s and he was placed on 2L NC. In the emergency room he was a little tachypneic but not in distress, he was confirmed to be hypoxemic with saturations 87% on room air, went up to 92-94% on 2-3L. CXR with no obvious infiltrates and just some small bilateral pleural effusions and atelectasis. CT of the chest with no pneumonia, just the pleural effusions. WBC normal, Cr normal, K normal, BNP is up slightly in the 1999's. He was given Zosyn and Vancomycin and admission requested due to hypoxemia. Principal Diagnosis Acute on chronic diastolic and systolic heart failure Discharge Exam Constitutional well developed, well nourished, cooperative and comfortable; no acute distress Neck trachea midline, no thyromegaly Respiratory normal respiratory effort; no respiratory distress and no labored breathing Auscultation: + diminished lung sounds (posteriorly); no crackles, no rales, no rhonchi and no wheezes Cardiovascular Rate/Rhythm: regular rate and regular rhythm Heart Sounds: normal S1 and normal S2; no murmur Vessels: no JVD Extremities: normal capillary refill; no edema Gastrointestinal (Abdomen) normal bowel sounds, soft, nontender, no hepatosplenomegaly Musculoskeletal no cyanosis or clubbing, extremities motor strength 5/5 Skin + crusts, + dry skin and + erythema (venous stasis changes bilaterally); no wound Neurologic patellar DTR's 2+ bilat, sensation intact and PERRL, EOMI, accommodation nl, no face palsy, no dysarthria Psychiatric A+Ox3, euthymic affect Lymphatic no cervical or axillary lymphadenopathy Discharge Data Allergies Allergy/AdvReac Type Severity Reaction Status Date / Time merbromin Allergy Intermediate ALLERGIC Verified 12/01/20 15:14 TO MERCUROCHROME, RASH mercury (elemental) AdvReac Intermediate Rash Verified 12/01/20 15:14 sulfamethoxazole AdvReac Intermediate GI UPSET, Verified 12/01/20 15:14 FEVER, HEADACHE trimethoprim AdvReac Intermediate GI UPSET, Verified 12/01/20 15:14 FEVER, HEADACHE ciprofloxacin AdvReac Mild GI SYMPTOMS Verified 12/01/20 15:14 Consultations 11/29/20 07:13 ED Decision to Admit Stat 11/29/20 09:49 Consult Case Management - Discharge Planning Routine Ordered Studies 11/29/20 06:02 CT angio chest PE protocol Stat Hospital Course (1) Acute on chronic combined systolic (congestive) and diastolic (congestive) heart failure: acute right sided heart failure as well, has documented history of pulmonary HTN edema in legs on admission, appeared volume overloaded and his weight was up by about 10lbs from dry weight good response to Lasix 40mg IV on admission, negative 2 liters gave Lasix 20mg IV on 11/30 with good response as well Cr and K are stable BNP down to 1900 from 2700 and weight down to 159lb will increase Lasix to 40mg daily from 20mg daily daily weight, fluid restriction he will follow up closely with Joelle CORONA with CHF clinic (2) Acute respiratory failure with hypoxia: likely due to acute heart failure as well as some bronchitis seen on CT chest Lasix for heart failure, responding well Duonebs qid scheduled for the first 24 hours and q2h PRN Mucinex 1200mg BID Doxycycline 100mg BID x 5 days for atypical coverage, finish course on discharge Flutter valve to help break up phlegm no wheezing so will hold on systemic steroids down to room air in the evening on 11/30 but then back up to 2L in the morning on 11/03 2 step done on 12/01, required 2L at rest and 3L on exertion lungs clear, no longer has acute heart failure suspect he has needed oxygen for a little while, he has pulmonary hypertension anticipate that he will be on oxygen now the rest of his life (3) Acute bronchitis: Duonebs, Mucinex, Doxycycline, Flutter valve responded well, feeling better (4) Chronic venous insufficiency: no acute changes in legs (5) Hepatic cirrhosis: (6) Vitamin D deficiency: (7) HTN (hypertension), benign: BP stable on admission (8) Pulmonary hypertension: chronic issue, will give lasix pressures noted to be 40-50mmHg in 2019 (9) Hematuria: has a history of gross hematuria, could not find any notes in the system from a prior urology visit he and his say it was years ago, resolved on its own urine is dark red but clear, no difficulty urinating and the urine has no clots suspect it was due to Lovenox injections while here CT a/p on 12/01 with no kidney stones, no renal masses, no bladder tumors or even thickening of the bladder UA with gross blood, WBC > 30, epithelial cells > 30 already takes Keflex for MSSA wound on foot and now on Doxycycline for bronchitis will send urine for culture instructed him to follow up closely with his PCP, if the bleeding does not resolve or gets worse or if he cannot void he can return to the ED he never had a zarate or straight cath while hospitalized, again, ssuspect this was due to Lovenox can follow up with a urologist outpatient Total Time Total Time Spent Total Time Spent (In Minutes): 40 Total Time Includes: Examination of the Patient, Discharge Planning, Medication Reconciliation and Other (discussions with his ) Discharge Plan Discharge Items Patient Disposition: Home - Self-Care Reason For Visit: ACUTE HYPOXIA, BRONCHITIS Discharge Diagnosis: Acute on chronic heart failure Bronchitis Acute hypoxic respiratory failure Condition on Discharge: Good Goals: increase Lasix to keep weight stable, fluid off follow up with Joelle CORONA Activity: Resume your previous activity Weightbearing: Full weightbearing Non-emergency contact: Primary Care Provider and Field Aide Call non-emergency contact if: you have any medication questions and your symptoms worsen Follow-up/Referrals: Jose J Antoine MD [Primary Care Provider] - (one week) Joelle Jacinto PA-C [Physician Histopathologist] - (one week, phone call is sufficient) Diet: Heart Healthy Fluids: 1800ml (7 cups) Addtl Attending Provider Instructions: Medications: - LASIX: increase the dose to 40mg daily to keep weight stable follow low sodium diet, fluid restriction of 1800mL a day, which is approximate ly 62 ounces - DOXYCYCLINE: complete 4 more days for atypical bacterial coverage for bronchitis Oxygen: you need 2L at all times (day and night) and increase to 3L on exertion lungs are clear, no significant findings on CT chest suspect that you have been approaching the need for oxygen for some time, likely from pulmonary hypertension continue to use oxygen, would not stop using unless instructed to do so by physician Dark urine, patel colored could be from Lovenox shots you were given for blood clot prevention while hospitalized monitor for this to resolve after a few days if it does not resolve follow up with your doctor CT of the abdomen/pelvis showed no kidney stones, no kidney or bladder mass, no inflammatory changes urinalysis with blood, white blood cells and epithelial cells, sent for culture, will notify you if any bacteria grow Call 911 and go to the Emergency Room if: * You have tightness or pain in your chest that does not go away with rest or Nitroglycerin * You are very short of breath even with rest Call your doctor if any of the following symptoms or problems start or get worse: * Shortness of breath or difficulty breathing * Wake up at night short of breath * Chest pain * Cough * Swelling of your hands, fee, or legs * More fatigued or tired with your normal activity * Palpitations - sudden fast heart beats WEIGHT * Weigh yourself every morning after using the bathroom. * Use the same scale. * Wear the same amount of clothing. * Write your weight down on your chart. * Call your doctor if you gain more than 2-3 pounds in 1-2 days. MEDICATIONS * Use this discharge instruction sheet for instructions. * Take your medications at the time your doctor ordered. * Do not skip a dose of your medicines. * If you miss a dose of medicine, take as soon as possible, but DO NOT DOUBLE A DOSE. * Read your medicine information when you get home. * Know all of the side effects of your medicine. * Call your doctor's office if you have any side effects. * Be sure all of your doctors know what medicine and herbs you take (including cold, flu, and herbal medicine). * Pain Medicine: If you do not get relief from your pain, please call your doctor for help. Take the following with you to your follow-up doctor appointments: * Weight Chart * Medication List * List of questions Do not drink excessive alcohol, beer or wine. Pending Studies at Discharge: No Stand-Alone Forms: [facility], Smoking Cessation Medications and DC Order Prescriptions: New doxycycline hyclate 100 mg capsule 100 mg PO BID 4 Days Qty: 8 RF: 0 Continued Lac-Hydrin Five 5 % lotion 1 applic topical DAILY Qty: 226 RF: 2 terazosin 10 mg capsule 10 mg PO HS Qty: 90 RF: 3 cholecalciferol (vitamin D3) 50 mcg (2,000 unit) capsule 50 mcg PO DAILY Qty: 90 RF: 3 albuterol sulfate 90 mcg/actuation HFA aerosol inhaler 2 puffs INH Q6H PRN (Reason: Shortness Of Breath Or Wheezing) Qty: 18 RF: 0 spironolactone 100 mg tablet 100 mg PO QAM 30 Days Qty: 30 RF: 3 cyanocobalamin (vitamin B-12) 1,000 mcg capsule 1,000 mcg PO HS RF: 0 ascorbic acid (vitamin C) [Vitamin C] 1,000 mg tablet 1 g PO DAILY PRN (Reason: .) RF: 0 Changed furosemide 20 mg tablet 40 mg PO DAILY 30 Days Qty: 60 RF: 3 Discharge Orders: Discharge Order (Routine); Ordered 12/01/20 Ordered By: Román Lopez Admission Data Admit Date/Time: 11/29/20 08:51 Attending Provider: Román Lopez Admit Provider: Román Lopez Primary Care Provider: Jose J Antoine V. Other Providers: Román Lopez Other Interventions: Discharge Summary Assessment (RN) Last Done: 12/01/20 13:45 Coding Level of Care Code D/C Day Management >30 mins Diagnoses Acute on chronic combined systolic (congestive) and diastolic (congestive) heart failure I50.43 Acute respiratory failure with hypoxia J96.01 Acute bronchitis J20.9 Chronic venous insufficiency I87.2 Hepatic cirrhosis K74.60 Vitamin D deficiency E55.9 HTN (hypertension), benign I10 Pulmonary hypertension I27.20 Hematuria R31.9
[2020-12-01 14:34] LABS: Bilirubin Urine Negative (Negative); Blood Urine 3+ (Negative); Color Urine Red; Glucose Urine UA Negative (Negative); Ketones Urine Trace (Negative); Leukocyte Esterase Urine 1+ (Negative); Nitrite Urine Positive (Negative); Protein Urine 3+ (Negative); Specific Gravity Urine 1.028 (1.000-1.030); Urobilinogen Urine Positive (Negative); pH Urine 6.5 (4.5-7.5)
[2020-12-01 14:35] LABS: Appearance Urine Cloudy (Clear)
[2020-12-01 14:37] LABS: RBC Urine >30 /hpf (0-4)
[2020-12-01 14:38] LABS: Bacteria Urine Negative (Negative); WBC Urine >30 /hpf (0-5)
[2020-12-01] MEDS ORDERED: OPTIRAY 320 100ml IV ONE (14:59)
--- NOTE | 2020-12-01 15:11 | CT Scan Report ---
CT abdomen pelvis wo/w con CLINICAL HISTORY: Gross hematuria COMPARISON STUDY: 11/26/2020 TECHNIQUE: Noncontrast images were obtained to the abdomen and pelvis. Patient was then injected with 50 cc Optiray 320. After 5 minute delay, the patient was rescanned in a dynamic helical fashion duri ng additional administration of 44 cc of Optiray 320. A dose lowering technique was utilized adherin g to the principles of ALARA. CT DOSE: 1069.22 mGycm FINDINGS: Lower chest: There is gynecomastia. There are bilateral pleural effusions. There are bibasilar airspa ce opacities likely atelectatic although an infectious/inflammatory processes could appear similar. Liver: The liver has a cirrhotic morphology. No focal hepatic masses are visualized. Gallbladder: There is borderline wall thickening likely secondary to hepatocellular disease. There is no gallbladder distention. Spleen: Normal in size and attenuation. Pancreas: Unremarkable. Adrenal glands: Unremarkable. Kidneys: No renal, ureteral, or bladder calculi are visualized. The preprandial chest study demonstra ceci mild opacification of the bladder likely secondary to a prior CT scan. This limits the study for the detection of small calculi. Postcontrast images reveal no solid renal masses. Small renal hypoden sities likely represent cysts. No collecting system lesions are visualized Bowel: There are no transition zones indicate bowel obstruction. There is colonic diverticulosis. The re is no evidence of acute diverticulitis. There is no evidence of acute appendicitis. Peritoneum: There is low volume ascites. There is no evidence of free intraperitoneal air Vasculature: r there is mild ectasia of the infrarenal abdominal aorta which measures 28 mm. There is IVC distention raises the possibility of elevated right heart pressures Adenopathy: There is persistent mild para-aortic and iliac chain lymphadenopathy. There is persistent obturator lymphadenopathy. There is persistent mild mesenteric lymphadenopathy Pelvic viscera: The prostate is enlarged. Skeletal structures: There are multilevel degenerative changes. There is a grade 1 spondylolisthesis of L4 and L5. IMPRESSION: 1. No renal, ureteral, or bladder calculi identified 2. No solid renal masses identified. No uroepithelial lesions identified 3. Bilateral pleural effusions 4. Suspected hepatic cirrhosis 5. Low volume ascites 6. No evidence of acute diverticulitis. No evidence of acute appendicitis. 7. Prostatomegaly 8. Mesenteric, para-aortic, iliac chain and obturator lymphadenopathy similar to the prior study 9. Dilated IVC. This raises the possibility of elevated right heart pressures ACT 112: Negative or not required by law. Electronically signed by: Shahriar Dumont M.D. 12/01/2020 3:10 PM
== END 2020-12-01 17:45 | disposition home or self-care (01) | DRG 291 ==
LOC: ED 04:53 → 2N 08:51

== ENCOUNTER 2021-01-08 07:59 | Inpatient (IN) ==
[2021-01-08] MEDS ORDERED: cefTRIAXone SODIUM 1,000 MG/50 ML BAG IV STA (08:18)
[2021-01-08] MEDS ORDERED: DIPHTHERIA/TETANUS/PERTUSSIS 0.5 ML SYR/VIAL IM ONE (08:18)
--- NOTE | 2021-01-08 08:35 | Emergency Department Note ---
Impression & Plan Left leg pain, Anemia, Hematoma of left thigh, Acute head trauma, Fall ED Provider Note NAME: DELORES DOUGLAS AGE: 85 SEX: M : 1935 ARRIVES VIA: Walk-In INFORMANT: [Patient] ED PROVIDER(S): [Braulio Burnett MD] CHIEF COMPLAINT: Leg pain HISTORY OF PRESENT ILLNESS: The patient is an 85-year-old male who fell 5 days ago. He believes he lost his balance. He fell onto his left hand side. He has had increasing left leg pain since the fall. The pain is a 7/10 and worse with any type of ambulation. The patient denies any fever, he has not had chills or cough or congestion. No shortness of breath or chest pain. No abdominal or back pain. He admits he struck the left side of his face with the fall but does not have any headache or complaints of pain in this area. He has developed a black and blue eye. He has some abrasions to his left arm and to his lower extremities from the fall. The patient's left leg has become more swollen over time. He was brought by his for evaluation. Of note, the patient does not take any blood thinning agents. As per his old records, his last tetanus immunization was around 6 years ago. REVIEW OF SYSTEMS: See HPI for pertinent positives and negatives. A total of ten systems were reviewed and were otherwise negative. PMHx/PSHx: See Below SOCIAL HISTORY: See Below. PHYSICAL EXAM: GENERAL: Patient is in no acute distress. HEENT: The patient has an abrasion above his left eyebrow. There is no bony step-off. There is older contusion around the entire left eye. Mucous membranes are moist. There is no scalp hematoma. NECK: No stridor, no adenopathy, nontender cervical spine, trachea is midline. LUNGS: Clear to auscultation bilaterally, no wheeze, no rhonchi, breath sounds equal. Chest: Nontender chest wall, no contusions. HEART: Subtle systolic murmur, irregular rhythm, normal rate. ABDOMEN: Soft, nontender, bowel sounds positive, no hernias, no peritonitis. EXTREMITIES: No cyanosis. He has chronic lower extremity skin changes. He has abrasions to his upper left extremity and his lower extremities. The patient's left lower extremity is contused from the knee to the pelvis. The left thigh is quite swollen and firm. A large hematoma appears present over the thigh. There appears to be a left knee joint effusion. There is no gross deformity to the left lower extremity. The patient does not have any pain in his left foot left ankle or left lower leg. There is some erythema of the left lower extremity just below the knee with some very subtle warmth. NEUROLOGIC: Oriented x 3, no acute motor or sensory deficits, no focal weakness. SKIN: No rash, no jaundice, no diaphoresis. Back: Nontender thoracic or lumbar spine. DIFFERENTIAL DIAGNOSIS: Cellulitis, hematoma, arterial bleeding, venous bleeding, intracranial bleeding, skull fracture, facial fracture, C-spine injury/fracture, pelvis fracture, femur fracture, knee fracture, chest or abdominal trauma, thoracic or lumbar trauma, anemia, electrolyte imbalance, infection, coagulopathy. EMERGENCY DEPARTMENT COURSE/PROCEDURES: ECG: Indication was weakness and fall. The ECG shows what appears to be atrial fibrillation with some PVCs. There is some T wave inversion in the lateral leads. The rate is 73. The QTc is 528. There is no ST elevation. There is a right bundle branch block. Compared to an ECG from 29 November 2020, I see no significant change. Continuous Cardiac Monitoring: An order was placed for continuous cardiac monitoring. The monitor shows a rate of 77 with atrial fibrillation. MEDICAL DECISION MAKING: There is no leukocytosis. The patient is anemic with a hemoglobin of 7. This is about a four-point drop for him. There is a normal platelet count. INR and PTT are are both slightly elevated. No kidney failure or significant electrolyte abnormality. Lactic acid level is somewhat elevated at 2.5. Bilirubin is elevated at 3.3, the elevated bilirubin has been documented before. The TSH is slightly high however, the T4 is normal. Urinalysis does not show infection, some contamination was seen. RSV, Covid and influenza testing were negative. Chest film shows some cardiomegaly, I do not see any CHF. Left hip, left femur and left knee films were performed, there was no fracture seen. Brain CT shows no acute bleed or mass-effect. C-spine CT shows no acute f racture. Facial CT shows no acute fracture. Left thigh/femur CT shows a large hematoma-no active extravasation of blood noted. On exam, the patient had a significant contusion to the left thigh that extended down to the knee. There was some erythema below the knee that was suggestive of a potential early cellulitis. The patient received IV saline, 500 cc. He received a tetanus booster IM. He received IV ceftriaxone as empiric antibiotic coverage. The patient has lost a significant amount of blood into his left thigh. He is close to needing a transfusion. I do think hospitalization is warranted. His leg will need to be watched for any worsening erythema that would suggest worsening infection/cellulitis. I spoke to the patient and case management. The on-call hospitalist has been consulted. 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 Chronic cough Chronic obstructive pulmonary disease Duodenal ulcer HX Dyspnea Enlarged prostate with lower urinary tract symptoms (LUTS) History of duodenal ulcer History of edema History of gross hematuria History of hepatitis History of retinal hemorrhage Hypertension Hypoxia Laceration of scalp with delay in treatment Left knee DJD Left shoulder pain Liver cirrhosis Macular degeneration Pneumonia ON ANTIBIOTICS CURRENTLY X 5 DAYS THRU PCP Positive JESSICA (antinuclear antibody) Pulmonary hypertension Retinal hemorrhage Right-sided heart failure Sleep apnea Traumatic hematoma of left upper arm Traumatic open wound of right lower leg with delayed healing Upper respiratory infection 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 Mother , Age 34 No problems noted. Denies family history of Colon cancer Ovarian cancer Prostate cancer Myocardial infarction Breast cancer Social History Smoking Status: Never smoker Number of Years Since Quit: 13; Second Hand Exposure: No; Hx Alcohol Use: Yes Alcohol type: wine Alcohol Intake Frequency Comment: 2 glasses of wine with dinner every day Hx Substance Use: No Preferred Language: Malay Communication Ability: Effective Visual Impairment: Diminished Hearing Ability: Normal Decorator Consultant Required: No Beliefs That Will Affect Care: None marital status: Current Living Situation: Spouse current occupational status: retired 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 Feels Safe at Home: Yes Seatbelt Use: always Assistive Devices: Nebulizer and Oxygen - Continuous Allergies Allergies Allergy/AdvReac Type Severity Reaction Status Date / Time merbromin Allergy Intermediate ALLERGIC Verified 01/08/21 09:06 TO MERCUROCHROME, RASH mercury (elemental) AdvReac Intermediate Rash Verified 01/08/21 09:06 sulfamethoxazole AdvReac Intermediate GI UPSET, Verified 01/08/21 09:06 FEVER, HEADACHE trimethoprim AdvReac Intermediate GI UPSET, Verified 01/08/21 09:06 FEVER, HEADACHE ciprofloxacin AdvReac Mild GI SYMPTOMS Verified 01/08/21 09:06 Home Meds Home Medications Medication Instructions Recorded Confirmed No Known Home Medications 01/08/21 01/08/21 Results & Data (ED) Vital Signs Vital Signs - 24 hr 01/08/21 08:02 01/08/21 08:20 01/08/21 08:55 Temperature 36.7 C Temperature Source Temporal Artery Scan Pulse Rate 77 74 Pulse Rate from SpO2 Sensor Respiratory Rate 16 22 Blood Pressure 120/67 104/64 Blood Pressure Mean 84 77 Pulse Oximetry 99 99 Oxygen Delivery Method Room Air Sepsis Recent Fever Within 48 Hours No Sepsis New/Unexplained Change in Mental Status No Sepsis Action Taken by Nursing No Action Required 01/08/21 09:00 01/08/21 10:20 01/08/21 10:30 Temperature Temperature Source Pulse Rate 70 72 74 Pulse Rate from SpO2 Sensor 70 69 70 Respiratory Rate 18 21 21 Blood Pressure 119/56 L 103/54 L 103/52 L Blood Pressure Mean 77 70 69 Pulse Oximetry 95 98 96 Oxygen Delivery Method Sepsis Recent Fever Within 48 Hours Sepsis New/Unexplained Change in Mental Status Sepsis Action Taken by Retirement Medications Current Medication List: was personally reviewed by me Laboratory Data Attestation: I reviewed the patient's lab results. Result diagrams: 01/08/21 08:42 01/08/21 08:42 Lab Results 01/08/21 01/08/21 01/08/21 Range/Units 08:42 08:42 08:42 WBC (4.8-10.8) K/uL RBC (4.7-6.1) M/uL Hgb (14.0-18.0) g/dL Hct (42-52) % MCV (80-100) fL MCH (25-34) pg MCHC (32-36) g/dL RDW Std Deviation (36.4-46.3) fL RDW Coeff of Chel (11.5-14.5) % Plt Count (130-400) K/uL MPV (7.4-10.4) fL Immature Gran % (Auto) % Neut % (Auto) % Lymph % (Auto) % [place] % (Auto) % Eos % (Auto) % Baso % (Auto) % Neut # (Auto) (1.4-6.5) K/uL Lymph # (Auto) (1.2-3.4) K/uL [place] # (Auto) (0.11-0.59) K/uL Eos # (Auto) (0-0.5) K/uL Baso # (Auto) (0-0.2) K/uL Immature Gran # (Auto) (0.00-0.02) K/uL Anisocytosis PT 13.5 H (9.0-12.0) Seconds INR 1.4 H (0.9-1.1) APTT 48.7 H* (21.0-31.0) Seconds PTT Ratio 1.9 Sodium 133 L (136-145) mmol/L Potassium 4.0 (3.5-5.1) mmol/L Chloride 99 (98-107) mmol/L Carbon Dioxide 27 (21-32) mmol/L Anion Gap 7.0 (3-11) BUN 28 H (7-18) mg/dl Creatinine 1.19 (0.6-1.4) mg/dl Est Cr Clr Drug Dosing 45.2 ml/min Est GFR ( Amer) 63.3 Est GFR (Non-Af Amer) 54.6 BUN/Creatinine Ratio 23.7 H (10-20) Glucose 91 (70-99) mg/dl Lactate 2.5 H* (0.4-2.0) mmol/L Calcium 8.7 (8.5-10.1) mg/dl Magnesium 2.5 H (1.8-2.4) mg/dl Total Bilirubin 3.3 H (0.2-1) mg/dl AST 36 (15-37) U/L ALT 23 (12-78) U/L Alkaline Phosphatase 216 H (45-117) U/L Troponin I 0.020 (0-0.045) ng/ml Total Protein 7.4 (6.4-8.2) gm/dl Albumin 3.2 L (3.4-5.0) gm/dl Globulin 4.2 H (2.5-4.0) gm/dl Albumin/Globulin Ratio 0.8 L (0.9-2) TSH 4.990 H (0.300-4.500) uIu/ml Free T4 0.95 (0.8-1.6) ng/dl Urine Color Urine Appearance (Clear) Urine pH (4.5-7.5) Ur Specific [place] (1.000-1.030) Urine Protein (Negative) Urine Glucose (UA) (Negative) Urine Ketones (Negative) Urine Blood (Negative) Urine Nitrite (Negative) Urine Bilirubin (Negative) Urine Urobilinogen (Negative) Ur Leukocyte Esterase (Negative) Urine WBC (Auto) (0-5) /hpf Urine RBC (Auto) (0-4) /hpf U Hyaline Cast (Auto) (0-5) /lpf U Epithel Cells (Auto) (0-5) /lpf Urine Bacteria (Auto) (Negative) COVID-19 Eval Order SARS-CoV-2 (PCR) (Negative) Influenza Type A (PCR) (Neg) Influenza Type B (PCR) (Neg) RSV (RT-PCR) (Neg) Blood Type Antibody Screen Crossmatch 01/08/21 01/08/21 01/08/21 Range/Units 08:42 08:47 08:51 WBC 6.06 (4.8-10.8) K/uL RBC 2.34 L (4.7-6.1) M/uL Hgb 7.0 L (14.0-18.0) g/dL Hct 21.6 L (42-52) % MCV 92.3 (80-100) fL MCH 29.9 (25-34) pg MCHC 32.4 (32-36) g/dL RDW Std Deviation 52.9 H (36.4-46.3) fL RDW Coeff of Chel 16.3 H (11.5-14.5) % Plt Count 205 (130-400) K/uL MPV 8.5 (7.4-10.4) fL Immature Gran % (Auto) 0.2 % Neut % (Auto) 66.5 % Lymph % (Auto) 16.8 % [place] % (Auto) 13.0 % Eos % (Auto) 2.8 % Baso % (Auto) 0.7 % Neut # (Auto) 4.03 (1.4-6.5) K/uL Lymph # (Auto) 1.02 L (1.2-3.4) K/uL [place] # (Auto) 0.79 H (0.11-0.59) K/uL Eos # (Auto) 0.17 (0-0.5) K/uL Baso # (Auto) 0.04 (0-0.2) K/uL Immature Gran # (Auto) 0.01 (0.00-0.02) K/uL Anisocytosis Present PT (9.0-12.0) Seconds INR (0.9-1.1) APTT (21.0-31.0) Seconds PTT Ratio Sodium (136-145) mmol/L Potassium (3.5-5.1) mmol/L Chloride (98-107) mmol/L Carbon Dioxide (21-32) mmol/L Anion Gap (3-11) BUN (7-18) mg/dl Creatinine (0.6-1.4) mg/dl Est Cr Clr Drug Dosing ml/min Est GFR ( Amer) Est GFR (Non-Af Amer) BUN/Creatinine Ratio (10-20) Glucose (70-99) mg/dl Lactate (0.4-2.0) mmol/L Calcium (8.5-10.1) mg/dl Magnesium (1.8-2.4) mg/dl Total Bilirubin (0.2-1) mg/dl AST (15-37) U/L ALT (12-78) U/L Alkaline Phosphatase (45-117) U/L Troponin I (0-0.045) ng/ml Total Protein (6.4-8.2) gm/dl Albumin (3.4-5.0) gm/dl Globulin (2.5-4.0) gm/dl Albumin/Globulin Ratio (0.9-2) TSH (0.300-4.500) uIu/ml Free T4 (0.8-1.6) ng/dl Urine Color Dark Yellow Urine Appearance Clear (Clear) Urine pH 6.0 (4.5-7.5) Ur Specific [place] 1.020 (1.000-1.030) Urine Protein Trace H (Negative) Urine Glucose (UA) Negative (Negative) Urine Ketones Negative (Negative) Urine Blood Negative (Negative) Urine Nitrite Negative (Negative) Urine Bilirubin Negative (Negative) Urine Urobilinogen Negative (Negative) Ur Leukocyte Esterase 1+ H (Negative) Urine WBC (Auto) 5-10 H (0-5) /hpf Urine RBC (Auto) 0-4 (0-4) /hpf U Hyaline Cast (Auto) 1-5 (0-5) /lpf U Epithel Cells (Auto) 10-20 H (0-5) /lpf Urine Bacteria (Auto) Negative (Negative) COVID-19 Eval Order SARS-CoV-2 (PCR) (Negative) Influenza Type A (PCR) (Neg) Influenza Type B (PCR) (Neg) RSV (RT-PCR) (Neg) Blood Type O Positive Antibody Screen NEGATIVE Crossmatch See Detail 01/08/21 01/08/21 Range/Units 09:10 09:10 WBC (4.8-10.8) K/uL RBC (4.7-6.1) M/uL Hgb (14.0-18.0) g/dL Hct (42-52) % MCV (80-100) fL MCH (25-34) pg MCHC (32-36) g/dL RDW Std Deviation (36.4-46.3) fL RDW Coeff of Chel (11.5-14.5) % Plt Count (130-400) K/uL MPV (7.4-10.4) fL Immature Gran % (Auto) % Neut % (Auto) % Lymph % (Auto) % [place] % (Auto) % Eos % (Auto) % Baso % (Auto) % Neut # (Auto) (1.4-6.5) K/uL Lymph # (Auto) (1.2-3.4) K/uL [place] # (Auto) (0.11-0.59) K/uL Eos # (Auto) (0-0.5) K/uL Baso # (Auto) (0-0.2) K/uL Immature Gran # (Auto) (0.00-0.02) K/uL Anisocytosis PT (9.0-12.0) Seconds INR (0.9-1.1) APTT (21.0-31.0) Seconds PTT Ratio Sodium (136-145) mmol/L Potassium (3.5-5.1) mmol/L Chloride (98-107) mmol/L Carbon Dioxide (21-32) mmol/L Anion Gap (3-11) BUN (7-18) mg/dl Creatinine (0.6-1.4) mg/dl Est Cr Clr Drug Dosing ml/min Est GFR ( Amer) Est GFR (Non-Af Amer) BUN/Creatinine Ratio (10-20) Glucose (70-99) mg/dl Lactate (0.4-2.0) mmol/L Calcium (8.5-10.1) mg/dl Magnesium (1.8-2.4) mg/dl Total Bilirubin (0.2-1) mg/dl AST (15-37) U/L ALT (12-78) U/L Alkaline Phosphatase (45-117) U/L Troponin I (0-0.045) ng/ml Total Protein (6.4-8.2) gm/dl Albumin (3.4-5.0) gm/dl Globulin (2.5-4.0) gm/dl Albumin/Globulin Ratio (0.9-2) TSH (0.300-4.500) uIu/ml Free T4 (0.8-1.6) ng/dl Urine Color Urine Appearance (Clear) Urine pH (4.5-7.5) Ur Specific [place] (1.000-1.030) Urine Protein (Negative) Urine Glucose (UA) (Negative) Urine Ketones (Negative) Urine Blood (Negative) Urine Nitrite (Negative) Urine Bilirubin (Negative) Urine Urobilinogen (Negative) Ur Leukocyte Esterase (Negative) Urine WBC (Auto) (0-5) /hpf Urine RBC (Auto) (0-4) /hpf U Hyaline Cast (Auto) (0-5) /lpf U Epithel Cells (Auto) (0-5) /lpf Urine Bacteria (Auto) (Negative) COVID-19 Eval Order [facility] at [facility] SARS-CoV-2 (PCR) NEGATIVE (Negative) Influenza Type A (PCR) Negative (Neg) Influenza Type B (PCR) Negative (Neg) RSV (RT-PCR) Negative (Neg) Blood Type Antibody Screen Crossmatch Administered Medications Discontinued Medications Diphtheria/Pertussis/Tetanus Vacc (Diphtheria/Tetanus/Pertussis 0.5 Ml Syr/Vial) 0.5 ml IM .ONCE ONE Stop: 01/08/21 08:19 Last Admin: 01/08/21 09:00 Dose: 0.5 ml Documented by: [id number] Ceftriaxone Sodium (Rocephin) 1,000 mg in 50 mls @ 100 mls/hr IV NOW STA Stop: 01/08/21 08:47 Last Infusion: 01/08/21 09:40 Dose: 0 mls/hr Documented by: [id number] Admin: 01/08/21 09:10 Dose: 100 mls/hr Documented by: [id number] Sodium Chloride (Nss 1000ml) 500 mls @ 999 mls/hr IV .Q31M ONE Stop: 01/08/21 09:48 Last Infusion: 01/08/21 11:13 Dose: 0 mls/hr Documented by: [id number] Admin: 01/08/21 10:19 Dose: 999 mls/hr Documented by: [id number] Ioversol (Ioversol 100ml) 94 ml IV ONCE ONE Stop: 01/08/21 09:33 Last Admin: 01/08/21 09:32 Dose: 94 ml Documented by: [id number] Imaging Data Radiologist's Impression: Face CT 01/08/21 08:18 CT facial bones wo con CLINICAL HISTORY: 85 years-old Male presenting with fall, trauma. Acute facial injury status post fall COMPARISON STUDY: CT head and cervical spine studies of same day TECHNIQUE: High-resolution CT scan of the facial bones is performed. Images are reviewed in the axial, sagittal, and coronal planes. IV contrast was not administered for this examination. A dose lowering technique was utilized adhering to the principles of ALARA. FINDINGS: Left forehead hematoma, 4.3 x 0.6 cm. Small contusion of the left cheek. Prior bilateral lens repair. Age-related involutional changes of the brain parenchyma. Cerebral vascular calcifications. The patient is edentulous. Advanced degenerative changes of the imaged cervical spine. Mastoid air cells and middle ear cavities are clear. There is mild mucoperiosteal thickening of the paranasal sinuses. 5 mm left ethmoid air cell osteoma, image 401. No acute facial bone fracture identified. IMPRESSION: 1. No acute facial bone fracture. 2. Small left forehead hematoma with left cheek contusion. ACT 112: Negative or not required by law. The above report was generated using voice recognition software. It may contain grammatical, syntax or spelling errors. Electronically signed by: James Rodriguez M.D. 01/08/2021 10:[address] 01/08/21 08:18 CT SCAN OF THE BRAIN WITHOUT IV CONTRAST CLINICAL HISTORY: Fall. COMPARISON STUDY: CT of the brain dated 11/07/2019. TECHNIQUE: Unenhanced axial CT scan of the brain is performed from the vertex to the skull base. A dose lowering technique was utilized adhering to the principles of ALARA. FINDINGS: Brain parenchyma: There are age-related involutional changes noting moderate patchy subcortical and periventricular microangiopathic change. There is no hemorrhage, mass effect, or evidence of acute territorial ischemia by CT criteria. Sanchez-white matter differentiation is preserved. No extra-axial fluid collection is seen. Ventricles, sulci, cisterns: Prominent secondary to involutional change. Intracranial vasculature: There is atherosclerotic calcification of the cavernous carotid and vertebral arteries. Calvarium: The skeletal structures are osteopenic. There is no depressed calvarial fracture. Soft tissues: There is a small left frontal scalp hematoma. Sinuses and mastoids: There is trace mucosal thickening within the left maxillary antrum. A 5 mm osteoma is incidentally noted within the left ethmoid sinus. The remaining visualized paranasal sinuses are clear. The mastoid air cells are well pneumatized. Orbits: The bony orbits are grossly intact. There are bilateral ocular lens implants. IMPRESSION: There is no hemorrhage, mass effect, or evidence of acute territorial ischemia by CT criteria. ACT 112: Negative or not required by law. Electronically signed by: Braulio Villalobos M.D. 01/08/2021 9:48 AM Hip/Pelvis X-Ray 01/08/21 08:18 XR hip LT 2V w pelvis, XR femur LT 2V routine, XR knee LT 3V HISTORY: 85 years-old Male fall pain acute pelvic and left lower extremity pain status post fall COMPARISON: None TECHNIQUE: AP view of the pelvis with 2 views of the left hip, 2 views of the left femur and 3 views of the left knee FINDINGS: PELVIS/LEFT HIP: Contrast within the urinary bladder lumen. Vascular calcifications. Moderate osteoarthritis of the bilateral hips. No acute fracture, dislocation or avasc ular necrosis. LEFT FEMUR: No acute fracture, dislocation or avascular necrosis. Moderate to pronounced soft tissue swelling of the lateral mid to distal thigh. LEFT KNEE: Total joint arthroplasty. Arterial calcifications. No acute fracture, dislocation or opaque foreign body. Lateral tilt of the patella within the trochlear groove. No large joint effusion. IMPRESSION: 1. No acute fracture or dislocation. 2. Moderate to pronounced soft tissue swelling of the lateral mid to distal thigh possibly a hematoma. Correlate with clinical exam findings. ACT 112: Negative or not required by law. The above report was generated using voice recognition software. It may contain grammatical, syntax or spelling errors. Electronically signed by: [email or web address] Rodriguez M.D. 01/08/2021 11:11 AM Knee X-Ray 01/08/21 08:18 XR hip LT 2V w pelvis, XR femur LT 2V routine, XR knee LT 3V HISTORY: 85 years-old Male fall pain acute pelvic and left lower extremity pain status post fall COMPARISON: None TECHNIQUE: AP view of the pelvis with 2 views of the left hip, 2 views of the left femur and 3 views of the left knee FINDINGS: PELVIS/LEFT HIP: Contrast within the urinary bladder lumen. Vascular calcifications. Moderate osteoarthritis of the bilateral hips. No acute fracture, dislocation or avascular necrosis. LEFT FEMUR: No acute fracture, dislocation or avascular necrosis. Moderate to pronounced soft tissue swelling of the lateral mid to distal thigh. LEFT KNEE: Total joint arthroplasty. Arterial calcifications. No acute fracture, dislocation or opaque foreign body. Lateral tilt of the patella within the trochlear groove. No large joint effusion. IMPRESSION: 1. No acute fracture or dislocation. 2. Moderate to pronounced soft tissue swelling of the lateral mid to distal thigh possibly a hematoma. Correlate with clinical exam findings. ACT 112: Negative or not required by law. The above report was generated using voice recognition software. It may contain grammatical, syntax or spelling errors. Electronically signed by: James Rodriguez M.D. 01/08/2021 11:11 AM Chest X-Ray 01/08/21 08:19 XR chest 1V not portable CLINICAL HISTORY: weakness COMPARISON STUDY: Chest CT November 29, 2020. FINDINGS: There is no pneumothorax or pleural effusion. Cardiomegaly is unchanged. Pulmonary vascular congestion without overt pulmonary edema. Skinfold project over each hemithorax. IMPRESSION: 1. No pneumothorax. 2. Cardiomegaly with pulmonary vascular congestion, similar to prior exam. ACT 112: Negative or not required by law. Electronically signed by: Alan Chung M.D. 01/08/2021 11:[address] 01/08/21 08:22 CT OF THE CERVICAL SPINE WITHOUT CONTRAST CLINICAL HISTORY: Neck pain following fall. COMPARISON STUDY: Cervical spine CT November 07, 2019. TECHNIQUE: Helical axial images of the cervical spine were obtained without IV contrast. Sagittal and coronal reconstructions were viewed. Automated exposure control was utilized for the study. A dose lowering technique was utilized adhering to the principles of ALARA. FINDINGS: Reversal of the normal cervical lordosis is again noted. Vertebral body heights are maintained. No acute cervical spine fracture or subluxation is present. There is no prevertebral edema. Facet joints are intact. Severe multilevel disc space narrowing, osteophytosis and facet arthrosis is unchanged. IMPRESSION: 1. No acute cervical spine fracture or subluxation. 2. Severe multilevel degenerative disc disease and facet arthrosis within the cervical spine. ACT 112: Negative or not required by law. Electronically signed by: Alan Chung M.D. 01/08/2021 9:[address] 01/08/21 08:35 CT SCAN OF THE LEFT FEMUR WITH IV CONTRAST COMPARISON STUDY: Pelvic CT dated 12/01/2020. TECHNIQUE: Following the IV administration of 94 cc of Optiray 320, CT scan of the left femur is performed from the bony pelvis to the proximal tibia and fibula. Images are reviewed in the axial, sagittal, and coronal planes. IV contrast was administered without complication. A dose lowering technique was utilized adhering to the principles of ALARA. The examination is degraded by streak artifact from a left knee arthroplasty. There is also motion artifact. FINDINGS: The skeletal structures are osteopenic. There is no evidence of femoral fracture. The visualized left hemipelvis as well as the proximal tibia and fibula appear intact. No lytic or blastic lesion is seen. A left knee arthroplasty is in place. No periprosthetic lucency is identified. Degenerative narrowing is noted in the left hip joint. There is no evidence of avascular necrosis of the femoral head. There is diffuse superficial and deep soft tissue edema throughout the left thigh. There is a large soft tissue hematoma identified in the posterolateral aspect of the distal thigh. This measures approximately 30 x 11 x 7.5 cm. No active extravasation is identified at the dottie e of interest. A popliteal cyst is partially visualized posterior to the knee. This is incompletely assessed due to significant streak artifact from the arthroplasty. Advanced atherosclerotic plaque is identified throughout the left femoral and popliteal arteries. The vessels are patent as imaged. There is generalized atrophy of the regional musculature. No pathologically enlarged pelvic sidewall or inguinal lymph nodes are identified. Superficial venous varicosities are seen within the medial thigh. IMPRESSION: 1. There is no evidence of left femoral fracture. 2. There is a large soft tissue hematoma identified in the posterolateral left thigh as above. This measures up to 30 cm in length. 3. No active extravasation is identified at the time of examination. 4. A popliteal cyst is partially imaged. ACT 112: Negative or not required by law. Dictated: 01/08/2021 9:49 AM Transcribed: 01/08/2021 10:05 AM Bibi [id number] [email or web address] Electronically signed by: Braulio Villalobos M.D. 01/08/2021 10:06 AM Femur X-Ray 01/08/21 09:51 XR hip LT 2V w pelvis, XR femur LT 2V routine, XR knee LT 3V HISTORY: 85 years-old Male fall pain acute pelvic and left lower extremity pain status post fall COMPARISON: None TECHNIQUE: AP view of the pelvis with 2 views of the left hip, 2 views of the left femur and 3 views of the left knee FINDINGS: PELVIS/LEFT HIP: Contrast within the urinary bladder lumen. Vascular calcifications. Moderate osteoarthritis of the bilateral hips. No acute fracture, dislocation or avascular necrosis. LEFT FEMUR: No acute fracture, dislocation or avascular necrosis. Moderate to pronounced soft tissue swelling of the lateral mid to distal thigh. LEFT KNEE: Total joint arthroplasty. Arterial calcifications. No acute fracture, dislocation or opaque foreign body. Lateral tilt of the patella within the trochlear groove. No large joint effusion. IMPRESSION: 1. No acute fracture or dislocation. 2. Moderate to pronounced soft tissue swelling of the lateral mid to distal thigh possibly a hematoma. Correlate with clinical exam findings. ACT 112: Negative or not required by law. The above report was generated using voice recognition software. It may contain grammatical, syntax or spelling errors. Electronically signed by: James Rodriguez M.D. 01/08/2021 11:11 AM Head Trauma GCS Score: 15 Discharge Plan Visit Data Chief Complaint: Leg Injury/Pain Stated Complaint: fall-leg pain ED Provider: Braulio Burnett Discharge Problem: Left leg pain, Anemia, Hematoma of left thigh, Acute head trauma, Fall Patient Disposition: Admitted As Inpatient Condition: Fair Discharge Instructions Interventions: ED Discharge Assessment Last Done: 01/08/21 12:52 Discharge Problem: Anemia Qualifiers: Anemia type: unspecified type Qualified Code(s): D64.9 - Anemia, unspecified Hematoma of left thigh Qualifiers: Encounter type: initial encounter Qualified Code(s): S70.12XA - Contusion of left thigh, initial encounter Acute head trauma Qualifiers: Encounter type: initial encounter Qualified Code(s): S09.90XA - Unspecified injury of head, initial encounter Fall Qualifiers: Encounter type: initial encounter Qualified Code(s): W19.XXXA - Unspecified fall, initial encounter
[2021-01-08 08:56] LABS: Basophils # (auto) 0.04 K/uL (0-0.2); Basophils % (auto) 0.7 %; Eosinophils # (auto) 0.17 K/uL (0-0.5); Eosinophils % (auto) 2.8 %; Hematocrit (blood only) 21.6 % (42-52); Immature Granulocytes # (auto) 0.01 K/uL (0.00-0.02); Immature Granulocytes % (auto) 0.2 %; Lymphocytes # (auto) 1.02 K/uL (1.2-3.4); Lymphocytes % (auto) 16.8 %; Mean Corpuscular Hemoglobin 29.9 pg (25-34); Mean Corpuscular Hgb Conc 32.4 g/dL (32-36); Mean Corpuscular Volume 92.3 fL (80-100); Mean Platelet Volume 8.5 fL (7.4-10.4); Monocytes # (auto) 0.79 K/uL (0.11-0.59); Neutrophils # (auto) 4.03 K/uL (1.4-6.5); Neutrophils % (auto) 66.5 %; Platelet Count 205 K/uL (130-400); RDW Coefficient of Variation 16.3 % (11.5-14.5); RDW Standard Deviation 52.9 fL (36.4-46.3); Red Blood Count 2.34 M/uL (4.7-6.1); White Blood Count 6.06 K/uL (4.8-10.8)
[2021-01-08 09:12] LABS: Appearance Urine Clear (Clear); Bacteria Urine Automated Negative (Negative); Bilirubin Urine Negative (Negative); Blood Urine Negative (Negative); Color Urine Dark Yellow; Glucose Urine UA Negative (Negative); Ketones Urine Negative (Negative); Leukocyte Esterase Urine 1+ (Negative); Nitrite Urine Negative (Negative); Protein Urine Trace (Negative); RBC Urine Automated 0-4 /hpf (0-4); Urobilinogen Urine Negative (Negative)
[2021-01-08 09:17] LABS: Albumin Level 3.2 gm/dl (3.4-5.0); BUN Creatinine Ratio 23.7 (10-20); Calcium 8.7 mg/dl (8.5-10.1); Creatinine Clr Calc Pharmacy 45.2 ml/min; Est GFR (African American) 63.3; Est GFR (Non-African American) 54.6; Magnesium 2.5 mg/dl (1.8-2.4)
[2021-01-08] MEDS ORDERED: SODIUM CHLORIDE 0.9% 1000ML 500 ML IV ONE (09:18)
[2021-01-08 09:19] LABS: INR 1.4 (0.9-1.1); Partial Thromboplastin Ratio 1.9; Prothrombin Time 13.5 Seconds (9.0-12.0)
[2021-01-08 09:23] LABS: Partial Thromboplastin Time 48.7 Seconds (21.0-31.0)
[2021-01-08 09:27] LABS: Anisocytosis Present
[2021-01-08 09:28] LABS: Albumin Globulin Ratio 0.8 (0.9-2); Bilirubin,Total 3.3 mg/dl (0.2-1); Globulin 4.2 gm/dl (2.5-4.0); Thyroid Stimulating Hormone 4.99 uIu/ml (0.300-4.500); Total Protein 7.4 gm/dl (6.4-8.2); Troponin I 0.02 ng/ml (0-0.045)
[2021-01-08] MEDS ORDERED: OPTIRAY 320 100ml IV ONE (09:32)
[2021-01-08 09:40] LABS: T4 Free Thyroxine 0.95 ng/dl (0.8-1.6)
--- NOTE | 2021-01-08 09:50 | CT Scan Report ---
CT SCAN OF THE BRAIN WITHOUT IV CONTRAST CLINICAL HISTORY: Fall. COMPARISON STUDY: CT of the brain dated 11/07/2019. TECHNIQUE: Unenhanced axial CT scan of the brain is performed from the vertex to the skull base. A do se lowering technique was utilized adhering to the principles of ALARA. FINDINGS: Brain parenchyma: There are age-related involutional changes noting moderate patchy subcortical and periventricular microangiopathic change. There is no hemorrhage, mass effect, or evidence of acute te rritorial ischemia by CT criteria. Sanchez-white matter differentiation is preserved. No extra-axial flu id collection is seen. Ventricles, sulci, cisterns: Prominent secondary to involutional change. Intracranial vasculature: There is atherosclerotic calcification of the cavernous carotid and vertebr al arteries. Calvarium: The skeletal structures are osteopenic. There is no depressed calvarial fracture. Soft tissues: There is a small left frontal scalp hematoma. Sinuses and mastoids: There is trace mucosal thickening within the left maxillary antrum. A 5 mm oste vinod is incidentally noted within the left ethmoid sinus. The remaining visualized paranasal sinuses a re clear. The mastoid air cells are well pneumatized. Orbits: The bony orbits are grossly intact. There are bilateral ocular lens implants. IMPRESSION: There is no hemorrhage, mass effect, or evidence of acute territorial ischemia by CT joe tovar. ACT 112: Negative or not required by law. Electronically signed by: Braulio Villalobos M.D. 01/08/2021 9:48 AM
--- NOTE | 2021-01-08 09:52 | CT Scan Report ---
CT OF THE CERVICAL SPINE WITHOUT CONTRAST CLINICAL HISTORY: Neck pain following fall. COMPARISON STUDY: Cervical spine CT November 07, 2019. TECHNIQUE: Helical axial images of the cervical spine were obtained without IV contrast. Sagittal a nd coronal reconstructions were viewed. Automated exposure control was utilized for the study. A do se lowering technique was utilized adhering to the principles of ALARA. FINDINGS: Reversal of the normal cervical lordosis is again noted. Vertebral body heights are maintai jasmyne. No acute cervical spine fracture or subluxation is present. There is no prevertebral edema. Face t joints are intact. Severe multilevel disc space narrowing, osteophytosis and facet arthrosis is un changed. IMPRESSION: 1. No acute cervical spine fracture or subluxation. 2. Severe multilevel degenerative disc disease and facet arthrosis within the cervical spine. ACT 112: Negative or not required by law. Electronically signed by: Alan Chung M.D. 01/08/2021 9:51 AM
--- NOTE | 2021-01-08 10:05 | CT Scan Report ---
CT facial bones wo con CLINICAL HISTORY: 85 years-old Male presenting with fall, trauma. Acute facial injury status post fal l COMPARISON STUDY: CT head and cervical spine studies of same day TECHNIQUE: High-resolution CT scan of the facial bones is performed. Images are reviewed in the axia l, sagittal, and coronal planes. IV contrast was not administered for this examination. A dose lower ing technique was utilized adhering to the principles of ALARA. FINDINGS: Left forehead hematoma, 4.3 x 0.6 cm. Small contusion of the left cheek. Prior bilateral lens repair. Age-related involutional changes of the brain parenchyma. Cerebral vascular calcifications. The vivi ent is edentulous. Advanced degenerative changes of the imaged cervical spine. Mastoid air cells and middle ear cavities are clear. There is mild mucoperiosteal thickening of the paranasal sinuses. 5 mm left ethmoid air cell osteoma, image 401. No acute facial bone fracture identified. IMPRESSION: 1. No acute facial bone fracture. 2. Small left forehead hematoma with left cheek contusion. ACT 112: Negative or not required by law. The above report was generated using voice recognition software. It may contain grammatical, syntax o r spelling errors. Electronically signed by: James Rodriguez M.D. 01/08/2021 10:04 AM
[2021-01-08 10:07] LABS: Influenza A virus by PCR Negative (Neg); Influenza B virus by PCR Negative (Neg); RSV by PCR Negative (Neg); SARS CoV2 RNA(COVID-19) InHosp NEGATIVE (Negative)
--- NOTE | 2021-01-08 10:07 | CT Scan Report ---
CT SCAN OF THE LEFT FEMUR WITH IV CONTRAST COMPARISON STUDY: Pelvic CT dated 12/01/2020. TECHNIQUE: Following the IV administration of 94 cc of Optiray 320, CT scan of the left femur is perf ormed from the bony pelvis to the proximal tibia and fibula. Images are reviewed in the axial, sagitt al, and coronal planes. IV contrast was administered without complication. A dose lowering technique was utilized adhering to the principles of ALARA. The examination is degraded by streak artifact from a left knee arthroplasty. There is also motion artifact. FINDINGS: The skeletal structures are osteopenic. There is no evidence of femoral fracture. The visua lized left hemipelvis as well as the proximal tibia and fibula appear intact. No lytic or blastic les ion is seen. A left knee arthroplasty is in place. No periprosthetic lucency is identified. Degenerat prachi narrowing is noted in the left hip joint. There is no evidence of avascular necrosis of the femor al head. There is diffuse superficial and deep soft tissue edema throughout the left thigh. There is a large soft tissue hematoma identified in the posterolateral aspect of the distal thigh. This measur es approximately 30 x 11 x 7.5 cm. No active extravasation is identified at the time of interest. A p opliteal cyst is partially visualized posterior to the knee. This is incompletely assessed due to sig nificant streak artifact from the arthroplasty. Advanced atherosclerotic plaque is identified through out the left femoral and popliteal arteries. The vessels are patent as imaged. There is generalized a trophy of the regional musculature. No pathologically enlarged pelvic sidewall or inguinal lymph node s are identified. Superficial venous varicosities are seen within the medial thigh. IMPRESSION: 1. There is no evidence of left femoral fracture. 2. There is a large soft tissue hematoma identified in the posterolateral left thigh as above. This m easures up to 30 cm in length. 3. No active extravasation is identified at the time of examination. 4. A popliteal cyst is partially imaged. ACT 112: Negative or not required by law. Dictated: 01/08/2021 9:49 AM Transcribed: 01/08/2021 10:05 AM Bibi [id number] [email or web address] Electronically signed by: Braulio Villalobos M.D. 01/08/2021 10:06 AM
--- NOTE | 2021-01-08 10:29 | History & Physical Report ---
Date of Service January 08, 2021 Assessment & Plan (1) Anemia: Suspect secondary to large left leg hematoma. Serial H&H, type and screen performed. Transfuse for Hgb < 7. Consent signed by patient. (2) Hematoma of left lower leg: Serial H&H. No extravasation to suggest ongoing bleed. PT/OT - likely to need rehabilitation (3) Hepatic cirrhosis: Unclear whether the patient is taking spironolactone or furosemide at the current time. He does not appear significantly hypervolemic at the present time. He does have limited understanding of this and has declined further work-up in the past. (4) Chronic combined systolic (congestive) and diastolic (congestive) heart failure: Notable recent history of this. Will watch for fluid overload with any blood transfusions. (5) Chronic venous insufficiency: (6) Atrial fibrillation: Not new. Not on anticoagulation - unclear reason for this although contraindicated with current hematoma. Rate controlled on no medication. (7) Obstructive sleep apnea syndrome: Patient reports not on CPAP at home. (8) Osteomyelitis of left ankle: Chronic No surgical intervention planned. [facility] Admission and Anticipated Discharge Date Admission Date: January 08, 2021 History of Present Illness Chief Complaint: Left leg hematoma Primary Care Provider: Jose J Antoine MD Markell Vernon is an 85 year old male who presents to the ER after increasing ambulatory dysfunction after a fall 5 days ago. The patient reports tripping over a rug. Since this time he has had increasing pain and swelling in his left leg. His had unfortunately the emergency room prior to his admission therefore majority of history was taken from ER notes. Ran out of medications Per outside pharmacy record he was started on doxycycline since December 25. The patient is unsure about his medications. "I take one pill in the morning". Unable to contact his at the current time on mobile number on EHR (tried multiple times). He was hospitalized last month due to acute on chronic diastolic and systolic heart failure. He was treated with furosemide and spironolactone at that time and prescribed on discharge but is yet to be re filled. Allergies Allergy/AdvReac Type Severity Reaction Status Date / Time merbromin Allergy Intermediate ALLERGIC Verified 01/08/21 09:06 TO MERCUROCHROME, RASH mercury (elemental) AdvReac Intermediate Rash Verified 01/08/21 09:06 sulfamethoxazole AdvReac Intermediate GI UPSET, Verified 01/08/21 09:06 FEVER, HEADACHE trimethoprim AdvReac Intermediate GI UPSET, Verified 01/08/21 09:06 FEVER, HEADACHE ciprofloxacin AdvReac Mild GI SYMPTOMS Verified 01/08/21 09:06 Home Medications Medication Instructions Recorded Confirmed Type No Known Home Medications 01/08/21 01/08/21 History 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 Chronic cough Chronic obstructive pulmonary disease Duodenal ulcer HX Dyspnea Enlarged prostate with lower urinary tract symptoms (LUTS) History of duodenal ulcer History of edema History of gross hematuria History of hepatitis History of retinal hemorrhage Hypertension Hypoxia Laceration of scalp with delay in treatment Left knee DJD Left shoulder pain Liver cirrhosis Macular degeneration Pneumonia ON ANTIBIOTICS CURRENTLY X 5 DAYS THRU PCP Positive JESSICA (antinuclear antibody) Pulmonary hypertension Retinal hemorrhage Right-sided heart failure Sleep apnea Traumatic hematoma of left upper arm Traumatic open wound of right lower leg with delayed healing Upper respiratory infection 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 Mother , Age 34 No problems noted. Denies family history of Colon cancer Ovarian cancer Prostate cancer Myocardial infarction Breast cancer Social History Smoking Status: Former smoker Number of Years Since Quit: 13; Second Hand Exposure: No; Hx Alcohol Use: Yes Alcohol type: wine Alcohol Intake Frequency Comment: 2 glasses of wine with dinner every day Hx Substance Use: No Preferred Language: Swedish Communication Ability: Effective Visual Impairment: Diminished Hearing Ability: Normal Oil Rigger Required: No Beliefs That Will Affect Care: None marital status: Current Living Situation: Spouse current occupational status: retired 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 Feels Safe at Home: Yes Seatbelt Use: always Assistive Devices: Walker Review of Systems Review of Systems: All systems reviewed & are unremarkable except as noted in HPI & below Physical Exam Constitutional: + frail appearing; no acute distress Respiratory: normal respiratory effort, lungs clear to auscultation Cardiovascular: Rate/Rhythm: + bradycardic and + irregularly irregular Heart Sounds: no murmur Extremities: + pedal edema (trace ankles b/l equal) Gastrointestinal (Abdomen): normal bowel sounds, soft, nontender, no hepatosplenomegaly Skin: + ecchymosis (left side of face) Trauma: + hematoma (Left leg in various stages of healing fits timeline of 5 days) No areas of cellulitis Neurologic: moves all extremities and awake; not confused Psychiatric: Orientation: alert and oriented x 3 Insight: + poor insight Genitourinary: no CVA tenderness Results & Data Results & Data ([facility]) Vital Signs (Past 12 Hours) Vital Signs Temp Pulse Resp BP Pulse Ox 01/08/21 08:20 99 01/08/21 08:02 36.7 C 77 16 120/[address] SCAN OF THE BRAIN WITHOUT IV CONTRAST IMPRESSION: There is no hemorrhage, mass effect, or evidence of acute territorial ischemia by CT criteria. CT facial bones wo con IMPRESSION: 1. No acute facial bone fracture. 2. Small left forehead hematoma with left cheek contusion. CT OF THE CERVICAL SPINE WITHOUT CONTRAST IMPRESSION: 1. No acute cervical spine fracture or subluxation. 2. Severe multilevel degenerative disc disease and facet arthrosis within the cervical spine. XR chest 1V not portable IMPRESSION: 1. No pneumothorax. 2. Cardiomegaly with pulmonary vascular congestion, similar to prior exam. XR hip LT 2V w pelvis, XR femur LT 2V routine, XR knee LT 3V IMPRESSION: 1. No acute fracture or dislocation. 2. Moderate to pronounced soft tissue swelling of the lateral mid to distal thigh possibly a hematoma. Correlate with clinical exam findings. CT SCAN OF THE LEFT FEMUR WITH IV CONTRAST IMPRESSION: 1. There is no evidence of left femoral fracture. 2. There is a large soft tissue hematoma identified in the posterolateral left thigh as above. This measures up to 30 cm in length. 3. No active extravasation is identified at the time of examination. 4. A popliteal cyst is partially imaged. Medications Administered ER Medications Given: NSS 500ml bolus ECG Rate (beats per minute): 78 Rhythm: atrial fibrillation Findings: + PVC and + RBBB; no acute ischemic change Comparison ECG Date: from (November 29, 2020) Change: no significant change Code Status & VTE Plan Code Status Full VTE Prophylaxis Plan VTE Prophylaxis will be ordered: No Reason for no VTE drug order: Treatment not indicated Reason for no VTE mechanical prophylaxis: Treatment not tolerated PG Care Time/CCT Total # of Minutes Spent Total Time Spent with Patient: Total time spent is greater than 50% in coordination of care (as documented) at patient's floor/unit and/or counseling patient: Coding Level of Care Code 46078 Initial Inpt Care Lvl 3 Diagnoses Anemia D64.9 Hematoma of left lower leg S80.12XA Hepatic cirrhosis K74.60 Chronic combined systolic (congestive) and diastolic (congestive) heart failure I50.42 Chronic venous insufficiency I87.2 Atrial fibrillation I48.20 Atrial fibrillation type: unspecified chronic Obstructive sleep apnea syndrome G47.33 Osteomyelitis of left ankle M86.9 (1) Atrial fibrillation Atrial fibrillation type: unspecified chronic Qualified Code(s): I48.20 - Chronic atrial fibrillation, unspecified
--- NOTE | 2021-01-08 11:09 | XRay Report ---
XR chest 1V not portable CLINICAL HISTORY: weakness COMPARISON STUDY: Chest CT November 29, 2020. FINDINGS: There is no pneumothorax or pleural effusion. Cardiomegaly is unchanged. Pulmonary vascular congestion without overt pulmonary edema. Skinfold project over each hemithorax. IMPRESSION: 1. No pneumothorax. 2. Cardiomegaly with pulmonary vascular congestion, similar to prior exam. ACT 112: Negative or not required by law. Electronically signed by: Alan Chung M.D. 01/08/2021 11:07 AM
--- NOTE | 2021-01-08 11:13 | XRay Report ---
XR hip LT 2V w pelvis, XR femur LT 2V routine, XR knee LT 3V HISTORY: 85 years-old Male fall pain acute pelvic and left lower extremity pain status post fall COMPARISON: None TECHNIQUE: AP view of the pelvis with 2 views of the left hip, 2 views of the left femur and 3 views of the left knee FINDINGS: PELVIS/LEFT HIP: Contrast within the urinary bladder lumen. Vascular calcifications. Moderate osteoarthritis of the bi lateral hips. No acute fracture, dislocation or avascular necrosis. LEFT FEMUR: No acute fracture, dislocation or avascular necrosis. Moderate to pronounced soft tissue swelling of the lateral mid to distal thigh. LEFT KNEE: Total joint arthroplasty. Arterial calcifications. No acute fracture, dislocation or opaque foreign b wander. Lateral tilt of the patella within the trochlear groove. No large joint effusion. IMPRESSION: 1. No acute fracture or dislocation. 2. Moderate to pronounced soft tissue swelling of the lateral mid to distal thigh possibly a hematoma . Correlate with clinical exam findings. ACT 112: Negative or not required by law. The above report was generated using voice recognition software. It may contain grammatical, syntax o r spelling errors. Electronically signed by: James Rodriguez M.D. 01/08/2021 11:11 AM
[2021-01-08] MEDS ORDERED: PHYTONADIONE 5 MG in SODIUM CHLORIDE 0.9% 50 ML IV ONE (13:45)
[2021-01-08] MEDS: oxyCODONE HCL IR 5 MG TAB (IMMEDIATE RELEASE) PO PRN (14:54)
[2021-01-08 19:34] LABS: Hematocrit (blood only) 20.7 % (42-52); Hemoglobin 6.8 g/dL (14.0-18.0)
[2021-01-08] MEDS ORDERED: SODIUM CHLORIDE 0.9% 250 ML IV PRN (19:38)
[2021-01-09] MEDS ORDERED: diphenhydrAMINE Capsule 25 MG CAP PO ONE (02:45)
--- NOTE | 2021-01-09 06:31 | Electrocardiogram Report ---
Test Reason : Blood Pressure : / mmHG Vent. Rate : 078 BPM Atrial Rate : 072 BPM P-R Int : 000 ms QRS Dur : 140 ms QT Int : 486 ms P-R-T Axes : 000 -66 270 degrees QTc Int : 554 ms Atrial fibrillation with premature ventricular or aberrantly conducted complexes Left axis deviation Right bundle branch block Abnormal ECG When compared with ECG of 08-JAN-2021 08:24, No significant change Confirmed by Sheldon Manley ([id number]) on 01/09/2021 6:30:52 AM Referred By: Confirmed By:Sheldon Manley
[2021-01-09 06:39] LABS: Basophils # (auto) 0.05 K/uL (0-0.2); Basophils % (auto) 0.7 %; Eosinophils # (auto) 0.16 K/uL (0-0.5); Eosinophils % (auto) 2.2 %; Hematocrit (blood only) 21.6 % (42-52); Hemoglobin 7.2 g/dL (14.0-18.0); Immature Granulocytes # (auto) 0.01 K/uL (0.00-0.02); Immature Granulocytes % (auto) 0.1 %; Lymphocytes # (auto) 1.28 K/uL (1.2-3.4); Lymphocytes % (auto) 17.3 %; Mean Corpuscular Hemoglobin 30.4 pg (25-34); Mean Corpuscular Hgb Conc 33.3 g/dL (32-36); Mean Corpuscular Volume 91.1 fL (80-100); Mean Platelet Volume 8.9 fL (7.4-10.4); Monocytes # (auto) 0.96 K/uL (0.11-0.59); Neutrophils # (auto) 4.95 K/uL (1.4-6.5); Neutrophils % (auto) 66.7 %; Platelet Count 227 K/uL (130-400); RDW Coefficient of Variation 16.4 % (11.5-14.5); RDW Standard Deviation 52.7 fL (36.4-46.3); Red Blood Count 2.37 M/uL (4.7-6.1); White Blood Count 7.41 K/uL (4.8-10.8)
[2021-01-09 06:47] LABS: INR 1.5 (0.9-1.1); Prothrombin Time 14.6 Seconds (9.0-12.0)
[2021-01-09 07:06] LABS: Albumin Level 2.7 gm/dl (3.4-5.0); BUN Creatinine Ratio 24.5 (10-20); Calcium 7.9 mg/dl (8.5-10.1); Creatinine Clr Calc Pharmacy 44.4 ml/min; Est GFR (Non-African American) 53.5; Potassium 4.6 mmol/L (3.5-5.1)
[2021-01-09 07:10] LABS: Albumin Globulin Ratio 0.6 (0.9-2); Globulin 4.3 gm/dl (2.5-4.0)
[2021-01-09] MEDS ORDERED: FUROSEMIDE 20 MG in SYRINGE 0 ML IV ONE (08:34)
[2021-01-09] MEDS ORDERED: SODIUM CHLORIDE 0.9% 250 ML IV PRN (08:34)
--- NOTE | 2021-01-09 16:19 | Hospitalist Progress Note ---
Date of Service January 09, 2021 Assessment & Plan (1) Anemia: Suspect secondary to large left leg hematoma. Serial H&H, type and screen performed. transfused one unit on admission, Hb up slightly at 7.2 gave 2nd unit on 01/09, Lasix 20mg IV after, tolerated well repeat H/H in the morning (2) Hematoma of left lower leg: Serial H&H. No extravasation to suggest ongoing bleed. PT/OT - likely to need rehabilitation, very weak (3) Hepatic cirrhosis: Unclear whether the patient is taking spironolactone or furosemide at the current time. He does not appear significantly hypervolemic at the present time. He does have limited understanding of this and has declined further work-up in the past. gave lasix 20mg IV after unit of PRBC today (4) Chronic combined systolic (congestive) and diastolic (congestive) heart failure: Notable recent history of this. Will watch for fluid overload with any blood transfusions. unclear if he is still taking lasix 40mg PO and spironolactone that was previously prescribed (5) Chronic venous insufficiency: (6) Atrial fibrillation: Notes on anticoagulation (7) HTN (hypertension), benign: (8) Obstructive sleep apnea syndrome: Patient reports not on CPAP at home. (9) Osteomyelitis of left ankle: Admission and Anticipated Discharge Date Admission Date: January 08, 2021 Subjective patient says he feels better after PRBC transfusion Hb was 7.2 this morning, gave one additional unit with Lasix, tolerated well he says he is eating and drinking well he says he has been doing well the past month, weight stable, no heart failure symptoms such as dyspnea on exertion Cr is 1.2, K stable he admits that he had a mechanical fall at home that caused the large left leg hematoma will get PT/OT to see him Review of Systems Review of Systems: All systems reviewed & are unremarkable except as noted in Subjective Physical Exam Constitutional: well developed, + thin and + frail appearing; no acute distress Neck: trachea midline, no thyromegaly Respiratory: normal respiratory effort, lungs clear to auscultation Cardiovascular: Rate/Rhythm: regular rate and regular rhythm Heart Sounds: normal S1 and normal S2; no murmur Extremities: normal capillary refill and + edema (+1 pedal edema) Gastrointestinal (Abdomen): normal bowel sounds, soft, nontender, no hepatosplenomegaly Musculoskeletal: no cyanosis or clubbing, extremities motor strength 5/5 Skin: + turgor decreased, + dry skin and + ecchymosis (skin covered in bruises, worst over left leg) Neurologic: patellar DTR's 2+ bilat, sensation intact and PERRL, EOMI, accommodation nl, no face palsy, no dysarthria Psychiatric: A+Ox3, euthymic affect Lymphatic: no cervical or axillary lymphadenopathy Results & Data Results & Data ([facility]) Vital Signs (Past 12 Hours) Vital Signs Temp Pulse Pulse Resp BP BP Pulse Ox 01/09/21 15:21 36.7 C 76 20 133/73 92 01/09/21 13:33 36.7 C 75 18 120/73 92 01/09/21 13:18 36.9 C 81 16 112/58 L 95 01/09/21 12:07 36.8 C 78 16 111/67 96 01/09/21 11:00 36.9 C 77 16 108/51 L 94 01/09/21 10:30 36.9 C 71 16 108/59 L 93 01/09/21 10:00 36.9 C 70 16 113/56 L 96 01/09/21 09:45 36.9 C 78 14 116/47 L 93 01/09/21 09:05 36.9 C 63 18 108/48 L 01/09/21 08:21 37.2 C 62 16 122/54 L 100 Laboratory Results Laboratory Results - last 24 hr 01/08/21 01/08/21 01/09/21 08:47 19:09 06:13 WBC 7.41 RBC 2.37 L Hgb 6.8 L* 7.2 L Hct 20.7 L* 21.6 L MCV 91.1 MCH 30.4 MCHC 33.3 RDW Std Deviation 52.7 H RDW Coeff of Chel 16.4 H Plt Count 227 MPV 8.9 Immature Gran % (Auto) 0.1 Neut % (Auto) 66.7 Lymph % (Auto) 17.3 [place] % (Auto) 13.0 Eos % (Auto) 2.2 Baso % (Auto) 0.7 Neut # (Auto) 4.95 Lymph # (Auto) 1.28 [place] # (Auto) 0.96 H Eos # (Auto) 0.16 Baso # (Auto) 0.05 Immature Gran # (Auto) 0.01 PT INR Sodium Potassium Chloride Carbon Dioxide Anion Gap BUN Creatinine Est Cr Clr Drug Dosing Est GFR ( Amer) Est GFR (Non-Af Amer) BUN/Creatinine Ratio Glucose Calcium Total Bilirubin AST ALT Alkaline Phosphatase Total Protein Albumin Globulin Albumin/Globulin Ratio Blood Type O Positive Antibody Screen NEGATIVE Crossmatch See Detail 01/09/21 01/09/21 06:13 06:13 WBC RBC Hgb Hct MCV MCH MCHC RDW Std Deviation RDW Coeff of Chel Plt Count MPV Immature Gran % (Auto) Neut % (Auto) Lymph % (Auto) [place] % (Auto) Eos % (Auto) Baso % (Auto) Neut # (Auto) Lymph # (Auto) [place] # (Auto) Eos # (Auto) Baso # (Auto) Immature Gran # (Auto) PT 14.6 H INR 1.5 H Sodium 133 L Potassium 4.6 Chloride 100 Carbon Dioxide 28 Anion Gap 5.0 BUN 30 H Creatinine 1.21 Est Cr Clr Drug Dosing 44.4 Est GFR ( Amer) 62.0 Est GFR (Non-Af Amer) 53.5 BUN/Creatinine Ratio 24.5 H Glucose 89 Calcium 7.9 L Total Bilirubin 4.0 H AST 34 ALT 22 Alkaline Phosphatase 198 H Total Protein 7.0 Albumin 2.7 L Globulin 4.3 H Albumin/Globulin Ratio 0.6 L Blood Type Antibody Screen Crossmatch Medications Administered Current Inpatient Medications Acetaminophen (Acetaminophen 325 Mg Tab) 650 mg PO Q4H PRN PRN Reason: pain/fever Stop: 02/07/21 13:26 Sodium Chloride (Nss) 250 mls @ 15 mls/hr IV .[id number] PRN PRN Reason: For Transfusion Stop: 01/09/21 18:34 Oxycodone HCl (Oxycodone Hcl Ir 5 Mg Tab (Immediate Release)) 5 mg PO Q4H PRN PRN Reason: Pain Stop: 01/22/21 13:26 Last Admin: 01/08/21 14:54 Dose: 5 mg Documented by: PG Care Time/CCT Total # of Minutes Spent Total Time Spent with Patient: Total time spent is greater than 50% in coordination of care (as documented) at patient's floor/unit and/or counseling patient: Coding Level of Care Code 53103 Subseq Hosp Care Lvl 2 Diagnoses Anemia D64.9 Hematoma of left lower leg S80.12XA Hepatic cirrhosis K74.60 Chronic combined systolic (congestive) and diastolic (congestive) heart failure I50.42 Chronic venous insufficiency I87.2 Atrial fibrillation I48.20 Atrial fibrillation type: unspecified chronic HTN (hypertension), benign I10 Obstructive sleep apnea syndrome G47.33 Osteomyelitis of left ankle M86.9 (1) Atrial fibrillation Atrial fibrillation type: unspecified chronic Qualified Code(s): I48.20 - Chronic atrial fibrillation, unspecified
[2021-01-10 08:55] LABS: Hematocrit (blood only) 25.5 % (42-52); Hemoglobin 8.3 g/dL (14.0-18.0); Mean Corpuscular Hemoglobin 29.7 pg (25-34); Mean Corpuscular Hgb Conc 32.5 g/dL (32-36); Mean Corpuscular Volume 91.4 fL (80-100); Mean Platelet Volume 8.8 fL (7.4-10.4); Platelet Count 244 K/uL (130-400); RDW Coefficient of Variation 16.5 % (11.5-14.5); RDW Standard Deviation 54.2 fL (36.4-46.3); Red Blood Count 2.79 M/uL (4.7-6.1); White Blood Count 7.24 K/uL (4.8-10.8)
[2021-01-10 09:29] LABS: BUN Creatinine Ratio 27.1 (10-20); Creatinine Clr Calc Pharmacy 51.7 ml/min; Est GFR (African American) 74.5; Est GFR (Non-African American) 64.3; Potassium 3.9 mmol/L (3.5-5.1)
[2021-01-10] MEDS: oxyCODONE HCL IR 5 MG TAB (IMMEDIATE RELEASE) PO PRN (21:38)
[2021-01-10] MEDS: ACETAMINOPHEN 325 MG TAB PO PRN (22:45)
--- NOTE | 2021-01-10 23:34 | Hospitalist Progress Note ---
Date of Service January 10, 2021 Assessment & Plan (1) Anemia: Suspect secondary to large left leg hematoma. Serial H&H, type and screen performed. transfused one unit on admission, Hb up slightly at 7.2 gave 2nd unit on 01/09, Lasix 20mg IV after, tolerated well repeat H/H is 8.2 repeat tomorrow (2) Hematoma of left lower leg: Serial H&H. No extravasation to suggest ongoing bleed. PT/OT - likely to need rehabilitation, very weak (3) Hepatic cirrhosis: Unclear whether the patient is taking spironolactone or furosemide at the current time. He does not appear significantly hypervolemic at the present t mally. He does have limited understanding of this and has declined further work-up in the past. gave lasix 20mg IV after unit of PRBC today he now says he takes Lasix 40mg PO every other day, will start tomorrow morning (4) Chronic combined systolic (congestive) and diastolic (congestive) heart failure: Notable recent history of this. Will watch for fluid overload with any blood transfusions. start on lasix 40mg QOD tomorrow (5) Chronic venous insufficiency: (6) Atrial fibrillation: Notes on anticoagulation (7) HTN (hypertension), benign: (8) Obstructive sleep apnea syndrome: Patient reports not on CPAP at home. (9) Osteomyelitis of left ankle: Admission and Anticipated Discharge Date Admission Date: January 08, 2021 Subjective patient doing well, no dyspnea, no chest pain, no fever Hb up to 8.2 after two units total left leg pain is about 7/10 at worst feels very weak, will get PT/OT, he agrees to rehab if needed Cr is stable he says that he was taking Lasix every other day at home, definitely not every day spoke with Joelle CORONA with heart failure, she says he has a hard time understanding his dry weight Review of Systems Review of Systems: All systems reviewed & are unremarkable except as noted in Subjective Constitutional: + fatigue and + weakness; no fever Respiratory: no cough, no dyspnea and no dyspnea on exertion Cardiovascular: + edema; no chest pain, no palpitations, no lightheadedness and no syncope Gastrointestinal: no abdominal pain, no nausea, no vomiting, no constipation and no diarrhea/loose stools Physical Exam Constitutional: well developed, + thin and + frail appearing; no acute distress Neck: trachea midline, no thyromegaly Respiratory: normal respiratory effort, lungs clear to auscultation Cardiovascular: Rate/Rhythm: regular rate and regular rhythm Heart Sounds: normal S1 and normal S2; no murmur Extremities: normal capillary refill and + edema (+1 pedal edema) Gastrointestinal (Abdomen): normal bowel sounds, soft, nontender, no hepatosplenomegaly Musculoskeletal: no cyanosis or clubbing, extremities motor strength 5/5 Skin: + turgor decreased, + dry skin and + ecchymosis (skin covered in brui ses, worst over left leg) Neurologic: patellar DTR's 2+ bilat, sensation intact and PERRL, EOMI, accommodation nl, no face palsy, no dysarthria Psychiatric: A+Ox3, euthymic affect Lymphatic: no cervical or axillary lymphadenopathy Results & Data Results & Data ([facility]) Vital Signs (Past 12 Hours) Vital Signs Temp Pulse Resp BP Pulse Ox 01/10/21 14:57 37 C 69 16 109/61 96 Laboratory Results Laboratory Results - last 24 hr 01/08/21 01/10/21 01/10/21 08:47 08:37 08:37 WBC 7.24 RBC 2.79 L Hgb 8.3 L Hct 25.5 L MCV 91.4 MCH 29.7 MCHC 32.5 RDW Std Deviation 54.2 H RDW Coeff of Chel 16.5 H Plt Count 244 MPV 8.8 Sodium 133 L Potassium 3.9 D Chloride 100 Carbon Dioxide 28 Anion Gap 5.0 BUN 28 H Creatinine 1.04 Est Cr Clr Drug Dosing 51.7 Est GFR ( Amer) 74.5 Est GFR (Non-Af Amer) 64.3 BUN/Creatinine Ratio 27.1 H Glucose 104 H Calcium 8.0 L Blood Type O Positive Antibody Screen NEGATIVE Crossmatch See Detail Medications Administered Current Inpatient Medications Acetaminophen (Acetaminophen 325 Mg Tab) 650 mg PO Q4H PRN PRN Reason: pain/fever Stop: 02/07/21 13:26 Last Admin: 01/10/21 22:45 Dose: 650 mg Documented by: Oxycodone HCl (Oxycodone Hcl Ir 5 Mg Tab (Immediate Release)) 5 mg PO Q4H PRN PRN Reason: Pain Stop: 01/22/21 13:26 Last Admin: 01/10/21 21:38 Dose: 5 mg Documented by: PG Care Time/CCT Total # of Minutes Spent Total Time Spent with Patient: Total time spent is greater than 50% in coordination of care (as documented) at patient's floor/unit and/or counseling patient: Coding Level of Care Code 82324 Subseq Hosp Care Lvl 2 Diagnoses Anemia D64.9 Hematoma of left lower leg S80.12XA Hepatic cirrhosis K74.60 Chronic combined systolic (congestive) and diastolic (congestive) heart failure I50.42 Chronic venous insufficiency I87.2 Atrial fibrillation I48.20 Atrial fibrillation type: unspecified chronic HTN (hypertension), benign I10 Obstructive sleep apnea syndrome G47.33 Osteomyelitis of left ankle M86.9 (1) Atrial fibrillation Atrial fibrillation type: unspecified chronic Qualified Code(s): I48.20 - Chronic atrial fibrillation, unspecified
[2021-01-11 05:40] LABS: Hematocrit (blood only) 24.7 % (42-52); Hemoglobin 8.1 g/dL (14.0-18.0); Mean Corpuscular Hemoglobin 30.5 pg (25-34); Mean Corpuscular Hgb Conc 32.8 g/dL (32-36); Mean Corpuscular Volume 92.9 fL (80-100); Mean Platelet Volume 8.4 fL (7.4-10.4); Platelet Count 240 K/uL (130-400); RDW Coefficient of Variation 16.7 % (11.5-14.5); RDW Standard Deviation 55.3 fL (36.4-46.3); Red Blood Count 2.66 M/uL (4.7-6.1); White Blood Count 6.42 K/uL (4.8-10.8)
[2021-01-11 06:02] LABS: BUN Creatinine Ratio 26.5 (10-20); Calcium 7.6 mg/dl (8.5-10.1); Creatinine Clr Calc Pharmacy 58.4 ml/min; Est GFR (African American) 86.4; Est GFR (Non-African American) 74.5; Potassium 3.7 mmol/L (3.5-5.1)
[2021-01-11] MEDS: FUROSEMIDE 40 MG TAB PO SCH (07:36)
[2021-01-11] MEDS: oxyCODONE HCL IR 5 MG TAB (IMMEDIATE RELEASE) PO PRN (15:31)
--- NOTE | 2021-01-11 22:37 | Hospitalist Progress Note ---
Date of Service January 11, 2021 Assessment & Plan (1) Anemia: Suspect secondary to large left leg hematoma. Serial H&H, type and screen performed. transfused one unit on admission, Hb up slightly at 7.2 gave 2nd unit on 01/09, Lasix 20mg IV after, tolerated well repeat H/H is 8.1 today follow every morning (2) Hematoma of left lower leg: Serial H&H. No extravasation to suggest ongoing bleed. PT/OT - likely to need rehabilitation, very weak will make referral (3) Hepatic cirrhosis: Unclear whether the patient is taking spironolactone or furosemide at the current time. He does not appear significantly hypervolemic at the present time. He does have limited understanding of this and has declined further work-up in the past. continue Lasix 40mg QOD which he takes at home (4) Chronic combined systolic (congestive) and diastolic (congestive) heart failure: Notable recent history of this. Will watch for fluid overload with any blood transfusions. start on lasix 40mg QOD today (5) Chronic venous insufficiency: (6) Atrial fibrillation: Notes on anticoagulation (7) HTN (hypertension), benign: (8) Obstructive sleep apnea syndrome: Patient reports not on CPAP at home. (9) Osteomyelitis of left ankle: Admission and Anticipated Discharge Date Admission Date: January 08, 2021 Subjective patient doing okay, still weak and his left leg hurts from the hematoma eating and drinking well, breathing stable Hb is 8.1 Review of Systems Review of Systems: All systems reviewed & are unremarkable except as noted in Subjective Musculoskeletal: + myalgia (left leg pain, thigh, from hematoma) Physical Exam Constitutional: well developed, + thin and + frail appearing; no acute distress Neck: trachea midline, no thyromegaly Respiratory: normal respiratory effort, lungs clear to auscultation Cardiovascular: Rate/Rhythm: regular rate and regular rhythm Heart Sounds: normal S1 and normal S2; no murmur Extremities: normal capillary refill and + edema (+1 pedal edema) Gastrointestinal (Abdomen): normal bowel sounds, soft, nontender, no hepatosplenomegaly Musculoskeletal: no cyanosis or clubbing, extremities motor strength 5/5 Skin: + turgor decreased, + dry skin and + ecchymosis (skin covered in bruises, worst over left leg) Neurologic: patellar DTR's 2+ bilat, sensation intact and PERRL, EOMI, accommodation nl, no face palsy, no dysarthria Psychiatric: A+Ox3, euthymic affect Lymphatic: no cervical or axillary lymphadenopathy Results & Data Results & Data ([facility]) Vital Signs (Past 12 Hours) Vital Signs Temp Pulse Resp BP Pulse Ox 01/11/21 14:22 36.3 C L 51 L 16 110/47 L 95 Laboratory Results Laboratory Results - last 24 hr 01/08/21 01/11/21 01/11/21 08:47 05:20 05:20 WBC 6.42 RBC 2.66 L Hgb 8.1 L Hct 24.7 L MCV 92.9 MCH 30.5 MCHC 32.8 RDW Std Deviation 55.3 H RDW Coeff of Chel 16.7 H Plt Count 240 MPV 8.4 Sodium 136 Potassium 3.7 Chloride 102 Carbon Dioxide 30 Anion Gap 4.0 BUN 24 H Creatinine 0.92 Est Cr Clr Drug Dosing 58.4 Est GFR ( Amer) 86.4 Est GFR (Non-Af Amer) 74.5 BUN/Creatinine Ratio 26.5 H Glucose 114 H Calcium 7.6 L Crossmatch See Detail Medications Administered Current Inpatient Medications Acetaminophen (Acetaminophen 325 Mg Tab) 650 mg PO Q4H PRN PRN Reason: pain/fever Stop: 02/07/21 13:26 Last Admin: 01/10/21 22:45 Dose: 650 mg Documented by: Furosemide (Furosemide 40 Mg Tab) 40 mg PO Q48H TONY Stop: 02/10/21 08:59 Last Admin: 01/11/21 07:36 Dose: 40 mg Documented by: Oxycodone HCl (Oxycodone Hcl Ir 5 Mg Tab (Immediate Release)) 5 mg PO Q4H PRN PRN Reason: Pain Stop: 01/22/21 13:26 Last Admin: 01/11/21 15:31 Dose: 5 mg Documented by: PG Care Time/CCT Total # of Minutes Spent Total Time Spent with Patient: Total time spent is greater than 50% in coordination of care (as documented) at patient's floor/unit and/or counseling patient: Coding Level of Care Code 54203 Subseq Hosp Care Lvl 2 Diagnoses Anemia D64.9 Hematoma of left lower leg S80.12XA Hepatic cirrhosis K74.60 Chronic combined systolic (congestive) and diastolic (congestive) heart failure I50.42 Chronic venous insufficiency I87.2 Atrial fibrillation I48.20 Atrial fibrillation type: unspecified chronic HTN (hypertension), benign I10 Obstructive sleep apnea syndrome G47.33 Osteomyelitis of left ankle M86.9 (1) Atrial fibrillation Atrial fibrillation type: unspecified chronic Qualified Code(s): I48.20 - Chronic atrial fibrillation, unspecified
[2021-01-12] MEDS: oxyCODONE HCL IR 5 MG TAB (IMMEDIATE RELEASE) PO PRN ×2 (03:41→20:57)
[2021-01-12] MEDS: ACETAMINOPHEN 325 MG TAB PO PRN (04:33)
[2021-01-12 08:31] LABS: Hematocrit (blood only) 26.5 % (42-52); Hemoglobin 8.4 g/dL (14.0-18.0)
[2021-01-13] MEDS: ACETAMINOPHEN 325 MG TAB PO PRN (06:13)
[2021-01-13] MEDS: FUROSEMIDE 40 MG TAB PO SCH (10:23)
[2021-01-13] MEDS: POLYETHYLENE (MIRALAX) 17 GM PACK PO PRN (10:30)
--- NOTE | 2021-01-13 16:21 | Hospitalist Progress Note ---
Date of Service January 13, 2021 Assessment & Plan (1) Anemia: Suspect secondary to large left leg hematoma. Serial H&H, type and screen performed. transfused one unit on admission, Hb up slightly at 7.2 gave 2nd unit on 01/09, Lasix 20mg IV after, tolerated well repeat H/H is 8.1 on 01/13 repeat H/H tomorrow, BP and HR stable (2) Hematoma of left lower leg: Serial H&H. No extravasation to suggest ongoing bleed. PT/OT - likely to need rehabilitation, very weak will make referral not ready for rehab yet this , could make request Thursday (3) Hepatic cirrhosis: Unclear whether the patient is taking spironolactone or furosemide at the current time. He does not appear significantly hypervolemic at the present time. He does have limited understanding of this and has declined further work-up in the past. continue Lasix 40mg QOD which he takes at home volume is acceptable (4) Chronic combined systolic (congestive) and diastolic (congestive) heart failure: Notable recent history of this. Will watch for fluid overload with any blood transfusions. start on lasix 40mg QOD today, tolerating well check BMP tomorrow (5) Chronic venous insufficiency: (6) Atrial fibrillation: Not on anticoagulation (7) HTN (hypertension), benign: (8) Obstructive sleep apnea syndrome: Patient reports not on CPAP at home. (9) Osteomyelitis of left ankle: Admission and Anticipated Discharge Date Admission Date: January 08, 2021 Subjective patient tired today, sleeping a lot eating okay, no chest pain, no dyspnea, no fever/chills still very weak thinks he might be ready for rehab tomorrow, will ask CM to make referral and peer to peer Review of Systems Review of Systems: All systems reviewed & are unremarkable except as noted in Subjective Constitutional: + fatigue and + weakness Respiratory: no cough and no dyspnea Cardiovascular: + edema; no chest pain Gastrointestinal: no abdominal pain, no nausea, no vomiting, no constipation and no diarrhea/loose stools Physical Exam Constitutional: well developed, + thin and + frail appearing; no acute distress Neck: trachea midline, no thyromegaly Respiratory: normal respiratory effort, lungs clear to auscultation Cardiovascular: Rate/Rhythm: regular rate and regular rhythm Heart Sounds: normal S1 and normal S2; no murmur Extremities: normal capillary refill and + edema (+1 pedal edema) Gastrointestinal (Abdomen): normal bowel sounds, soft, nontender, no hepatosplenomegaly Musculoskeletal: no cyanosis or clubbing, extremities motor strength 5/5 (hematoma over left thigh, tender) Skin: + turgor decreased, + dry skin and + ecchymosis (skin covered in bruises, worst over left leg) Neurologic: patellar DTR's 2+ bilat, sensation intact and PERRL, EOMI, accommodation nl, no face palsy, no dysarthria Psychiatric: A+Ox3, euthymic affect Lymphatic: no cervical or axillary lymphadenopathy Results & Data Results & Data ([facility]) Vital Signs (Past 12 Hours) Vital Signs Temp Pulse Resp BP Pulse Ox 01/13/21 15:28 36.8 C 54 L 16 118/69 93 01/13/21 07:07 36.7 C 70 16 114/68 91 Medications Administered Current Inpatient Medications Acetaminophen (Acetaminophen 325 Mg Tab) 650 mg PO Q4H PRN PRN Reason: pain/fever Stop: 02/07/21 13:26 Last Admin: 01/13/21 06:13 Dose: 650 mg Documented by: Furosemide (Furosemide 40 Mg Tab) 40 mg PO Q48H TONY Stop: 02/10/21 08:59 Last Admin: 01/13/21 10:23 Dose: 40 mg Documented by: Oxycodone HCl (Oxycodone Hcl Ir 5 Mg Tab (Immediate Release)) 5 mg PO Q4H PRN PRN Reason: Pain Stop: 01/22/21 13:26 Last Admin: 01/12/21 20:57 Dose: 5 mg Documented by: Polyethylene Glycol (Polyethylene (Miralax) 17 Gm Pack) 17 gm PO BID PRN PRN Reason: Constipation Stop: 02/11/21 01:02 Last Admin: 01/13/21 10:30 Dose: 17 gm Documented by: PG Care Time/CCT Total # of Minutes Spent Total Time Spent with Patient: Total time spent is greater than 50% in coordination of care (as documented) at patient's floor/unit and/or counseling patient: Coding Level of Care Code 63183 Subseq Hosp Care Lvl 2 Diagnoses Anemia D64.9 Hematoma of left lower leg S80.12XA Hepatic cirrhosis K74.60 Chronic combined systolic (congestive) and diastolic (congestive) heart failure I50.42 Chronic venous insufficiency I87.2 Atrial fibrillation I48.20 Atrial fibrillation type: unspecified chronic HTN (hypertension), benign I10 Obstructive sleep apnea syndrome G47.33 Osteomyelitis of left ankle M86.9 (1) Atrial fibrillation Atrial fibrillation type: unspecified chronic Qualified Code(s): I48.20 - Chronic atrial fibrillation, unspecified
[2021-01-13] MEDS: oxyCODONE HCL IR 5 MG TAB (IMMEDIATE RELEASE) PO PRN (21:30)
[2021-01-13] MEDS ORDERED: MELATONIN 3 MG TAB PO PRN (23:24)
[2021-01-14] MEDS: oxyCODONE HCL IR 5 MG TAB (IMMEDIATE RELEASE) PO PRN (07:41)
[2021-01-14 08:15] LABS: Hematocrit (blood only) 26.5 % (42-52); Hemoglobin 8.4 g/dL (14.0-18.0)
--- NOTE | 2021-01-14 08:38 | Hospitalist Progress Note ---
Date of Service January 14, 2021 Assessment & Plan (1) Anemia: * Suspect secondary to large left leg hematoma. * Serial H&H, type and screen performed. * Transfuse for Hgb < 7. * Consent signed by patient. * Repeat h/h this morning unchanged 8.4/26.5 * No reported bleeding, MCV wnl but will add iron studies to AM labs (2) Hematoma of left lower leg: * Serial H&H. No extravasation to suggest ongoing bleed. * PT/OT - likely to need rehabilitation, very weak * will ask CM to make referrals today (3) Hepatic cirrhosis: * Unclear whether the patient is taking spironolactone or furosemide at the current time. * --> Lungs with wheezing and noted cough. * He notes he had been taking diuretics at discharge last admission "took until they were completed" implying that he had no refills and this was reason to not be continued on these medications * Will provide 20mg IV lasix today and change 40mg lasix to daily dosing * Considerations for adding back the spironolactone 100mg daily as previously prescribed as well * Given somewhat confusion at times/limited insight, added ammonia to AM blood --elevated to 50. Will given lactulose x 1 today given patient without BM/cirrhosis * --> consider dosing at d/c for BM if needed as well * Follows with GI for cirrhosis but did not want any further work-up apparently (4) Chronic combined systolic (congestive) and diastolic (congestive) heart failure: * Notable recent history of this. * Will watch for fluid overload with any blood transfusions--> 20mg IV lasix for today and changed daily dose to 40mg. Consider adding spironolactone 100mg as above * Of note, creatinine continuing to improve with diuretics as ordered on admission (has not gotten lasix since 01/13 and not with hyponatremia. also hx hypothyroidism and not on treatment) * Will obtain daily weight, monitor I&O * Repeating limited ECHO * BMP in AM (5) Chronic venous insufficiency: * Stasis changes to b/l LE however with edema/fall and hx afib will get dopplers to r/o DVT (6) Atrial fibrillation: * Not new. * Not on anticoagulation - unclear reason for this although contraindicated with current hematoma. * Rate controlled on no medication. (7) HTN (hypertension), benign: * Chronic. BP controlled 126/60 * On lasix as above * Considerations for spironolactone as above * Previously on carvedilol, SATNAM in past -- unclear why this was discontinued (8) Obstructive sleep apnea syndrome: * Patient reports not on CPAP at home. (9) Osteomyelitis of left ankle: * Chronic * No surgical intervention planned. * No antibiotics per isinger infectious disease - just completed course of Doxycycline for 14 days per wound care * Wound care while inpatient Hypothyroidism -- Previously on 50mcg daily but has not been on. Last TSH elevated. -- Seems to be an issue with medications/refills/compliance -- Restarted 50mcg daily and should have repeat testing outpatient for further titrations if needed Dispo: continued inpatient stay Rehab at [facility] if bed available Per discussion with CM -- peer to peer was offered but never completed Will ask for number to call today. If declined, would like home with home health. Admission and Anticipated Discharge Date Admission Date: January 08, 2021 Supervising Physician Co-Signing Physician Notes CHLOE Supervision Note: I did not personally see or examine the patient today, but I verified all dupree points of CHLOE Ballesteros's assessment and plan with the following exceptions/additions: Could add o Rifaximin too for cirrhsois, hepatic encephalopathy. With Right sided heart failure, diuretics ordered, follow renal function Subjective Patient evaluated this afternoon. Feeling well. Just medicated for pain. States he fell on a rug as reason for fall. Had been on diuretics since last admission and took since completion but has not taken anything since. Only completed course of doxycycline for presumed infection. Cough new over past week -- not productive. Discussed likely from volume overload as he was previously placed on Lasix and spironolactone. Agreeable to rehab at discharge. No fever, chills, chest pain, shortness of breath, abdominal pain at this time. Passing gas and eating/drinking but no BM since yesterday. Review of Systems Review of Systems: All systems reviewed & are unremarkable except as noted in HPI & below Physical Exam Constitutional: well developed, + thin and + frail appearing; no acute distress Eyes: + anicteric sclerae and PERRL ENMT: Ears: no hearing impairment Neck: trachea midline, no thyromegaly Respiratory: normal respiratory effort, lungs clear to auscultation Cardiovascular: Rate/Rhythm: + bradycardic and + irregularly irregular Heart Sounds: normal S1 and normal S2; no murmur Extremities: normal capillary refill, + calf tenderness (bilaterally), + pedal edema (trace ankles b/l equal) and + edema (+1 edema b/l) Gastrointestinal (Abdomen): normal bowel sounds, soft, nontender, no hepatosplenomegaly Inspection/Auscultation: + abdomen distended Musculoskeletal: no cyanosis or clubbing, extremities motor strength 5/5 (hematoma over left thigh, tender) Skin: + turgor decreased, + dry skin and + ecchymosis (left side of face) Trauma: + hematoma (Left leg ) ulceration to LEFT medial ankle and dressing covering Neurologic: patellar DTR's 2+ bilat, sensation intact and PERRL, EOMI, accommodation nl, no face palsy, no dysarthria moves all extremities and alvin ke; not confused Psychiatric: Orientation: alert and oriented x 3 (at times) Insight: + poor insight Genitourinary: no CVA tenderness Lymphatic: no cervical or axillary lymphadenopathy Results & Data Results & Data ([facility]) Vital Signs (Past 12 Hours) Vital Signs Temp Pulse Resp BP Pulse Ox 01/14/21 07:15 36.6 C 55 L 16 126/60 95 01/13/21 22:50 36.9 C 55 L 18 107/60 95 Laboratory Results 01/14/21 01/14/21 01/14/21 Range/Units 09:18 08:03 08:03 Hgb 8.4 L (14.0-18.0) g/dL Hct 26.5 L (42-52) % Sodium 133 L (136-145) mmol/L Potassium 4.5 (3.5-5.1) mmol/L Chloride 101 (98-107) mmol/L Carbon Dioxide 28 (21-32) mmol/L Anion Gap 5.0 (3-11) BUN 26 H (7-18) mg/dl Creatinine 0.92 (0.6-1.4) mg/dl Est Cr Clr Drug Dosing 58.4 ml/min Est GFR ( Amer) 86.4 Est GFR (Non-Af Amer) 74.5 BUN/Creatinine Ratio 28.7 H (10-20) Glucose 85 (70-99) mg/dl Calcium 8.1 L (8.5-10.1) mg/dl Ammonia 50.0 H (11-32) umol/L PG Care Time/CCT Total # of Minutes Spent Total Time Spent with Patient: Total time spent is greater than 50% in coordination of care (as documented) at patient's floor/unit and/or counseling patient: Coding Level of Care Code 21548 Subseq Hosp Care Lvl 3 Diagnoses Anemia D64.9 Hematoma of left lower leg S80.12XA Hepatic cirrhosis K74.60 Chronic combined systolic (congestive) and diastolic (congestive) heart failure I50.42 Chronic venous insufficiency I87.2 Atrial fibrillation I48.20 Atrial fibrillation type: unspecified chronic HTN (hypertension), benign I10 Obstructive sleep apnea syndrome G47.33 Osteomyelitis of left ankle M86.9 (1) Atrial fibrillation Atrial fibrillation type: unspecified chronic Qualified Code(s): I48.20 - Chronic atrial fibrillation, unspecified
[2021-01-14 08:43] LABS: BUN Creatinine Ratio 28.7 (10-20); Calcium 8.1 mg/dl (8.5-10.1); Creatinine Clr Calc Pharmacy 58.4 ml/min; Est GFR (African American) 86.4; Est GFR (Non-African American) 74.5; Potassium 4.5 mmol/L (3.5-5.1)
[2021-01-14] MEDS: POLYETHYLENE (MIRALAX) 17 GM PACK PO PRN (08:56)
[2021-01-14] MEDS: DOCUSATE SODIUM 100 MG CAP PO SCH ×2 (11:08→19:58)
[2021-01-14] MEDS: POLYETHYLENE (MIRALAX) 17 GM PACK PO SCH ×2 (11:09→19:59)
[2021-01-14] MEDS ORDERED: LACTULOSE SYRUP 20 GM/30 ML UDC PO ONE (13:24)
[2021-01-14] MEDS ORDERED: FUROSEMIDE 20 MG in SYRINGE 0 ML IV ONE ×2 (13:30→21:00)
--- NOTE | 2021-01-14 15:23 | Ultrasound Report ---
ULTRASOUND BILATERAL LOWER EXTREMITY VENOUS CLINICAL HISTORY: Lower extremity edema. COMPARISON STUDY: Bilateral lower extremity venous ultrasound dated 12/21/2010. TECHNIQUE: Real-time, grayscale, and color Doppler sonography of the deep veins of the right and left lower extremity was performed from the inguinal crease to the calf. Compression and augmentation wer e utilized. FINDINGS: There is no sonographic evidence of deep venous thrombosis identified in the right or left lower extremity. The common femoral, superficial femoral, and popliteal veins are patent and normally compressible bilaterally. The greater saphenous vein and the profunda femoris vein at the junction w ith the common femoral vein are clear in both legs. The visualized calf veins are patent bilaterally. IMPRESSION: There is no sonographic evidence of deep venous thrombosis identified in the right or lef t lower extremity. ACT 112: Negative or not required by law. Electronically signed by: Braulio Villalobos M.D. 01/14/2021 3:22 PM
[2021-01-14] MEDS: DOXYCYCLINE HYCLATE 100 MG in DEXTROSE 5% 100 ML IV SCH (17:07)
--- NOTE | 2021-01-14 17:27 | XCELERA ---
[id number]
[2021-01-15] MEDS: DOXYCYCLINE HYCLATE 100 MG in DEXTROSE 5% 100 ML IV SCH ×2 (04:33→18:24)
[2021-01-15 06:01] LABS: Hematocrit (blood only) 25.6 % (42-52); Hemoglobin 8.1 g/dL (14.0-18.0); Mean Corpuscular Hemoglobin 29.7 pg (25-34); Mean Corpuscular Hgb Conc 31.6 g/dL (32-36); Mean Corpuscular Volume 93.8 fL (80-100); Mean Platelet Volume 8.4 fL (7.4-10.4); Platelet Count 262 K/uL (130-400); RDW Coefficient of Variation 17.1 % (11.5-14.5); RDW Standard Deviation 58.3 fL (36.4-46.3); Red Blood Count 2.73 M/uL (4.7-6.1); White Blood Count 5.93 K/uL (4.8-10.8)
[2021-01-15] MEDS ORDERED: LEVOTHYROXINE SODIUM 50 MCG TABLET PO SCH (06:30)
[2021-01-15 06:45] LABS: Albumin Globulin Ratio 0.5 (0.9-2); Albumin Level 2.3 gm/dl (3.4-5.0); BUN Creatinine Ratio 25.8 (10-20); Bilirubin,Total 2.2 mg/dl (0.2-1); Calcium 7.4 mg/dl (8.5-10.1); Creatinine Clr Calc Pharmacy 59.7 ml/min; Est GFR (African American) 88.7; Est GFR (Non-African American) 76.5; Ferritin 113.9 ng/ml (8-388); Globulin 4.3 gm/dl (2.5-4.0); Potassium 3.9 mmol/L (3.5-5.1); Total Protein 6.6 gm/dl (6.4-8.2)
[2021-01-15] MEDS: FUROSEMIDE 40 MG TAB PO SCH (08:06)
[2021-01-15] MEDS: POLYETHYLENE (MIRALAX) 17 GM PACK PO SCH ×2 (08:06→19:57)
[2021-01-15] MEDS: SPIRONOLACTONE 100 MG TAB PO SCH (08:07)
[2021-01-15] MEDS: DOCUSATE SODIUM 100 MG CAP PO SCH ×2 (08:07→19:57)
--- NOTE | 2021-01-15 08:10 | Magnetic Resonance Report ---
MR femur LT wo con CLINICAL HISTORY: Follow-up hematoma. COMPARISON STUDY: CT of the left femur January 08, 2021. TECHNIQUE: Utilizing a 1.5 [place] magnet and dedicated coil, multiplanar, multi echo imaging of the le ft femur and thigh was performed without intravenous contrast. FINDINGS: No marrow edema is identified within the left femur to suggest a fracture. There is no susp icious marrow replacement. There is susceptibility artifact from bilateral knee arthroplasties. Note is made of a large mixed signal intensity complex fluid collection within the deep subcutaneous tissu es of the posterolateral aspect of the left thigh. This is incompletely imaged on this exam but measu res at least 31.7 x 12.5 x 7.7 cm. This has mildly increased in size since CT of January 08, 2021 when it measured approximately 30 x 11 x 7.5 cm. This immediately overlies the fascia. Note is made of a s mall amount of subdural fascial fluid. No fascial fluid is noted as well as mild intramuscular edema. IMPRESSION: 1. Mild increase in size of the large left thigh hematoma, measuring 31.7 x 12.5 x 7[address] of January 08, 2021. This finding will be called/faxed to the ordering provider at time of dictation. 2. Small amount of subfascial/interfascial fluid as well as intramuscular edema within the left thigh . 3. No left femoral fracture. ACT 112: Negative or not required by law. Electronically signed by: Alan Chung M.D. 01/15/2021 8:09 AM
--- NOTE | 2021-01-15 08:29 | Hospitalist Progress Note ---
Date of Service January 15, 2021 Assessment & Plan (1) Hematoma of left lower leg: Secondary to fall on rug at home. CT LEFT Femur on admission with hematoma measures approximately 30 x 11 x 7.5 cm Anemia secondary to hematoma * Has gotten 2 u PRBC. Transfuse for <7 * H/h 8.125.6 * Iron studies with : * -->iron 27L, TIBC 312/ferritin 113 wnl, trans % sat low 10, transferrin low 193. * --> Will give dose of IV Venofer today over PO give hematoma and constipation * Repeat CBC in AM MRI with enlargement of hematoma to 31.7 x 12.5 x 7[address] of January 08, 2021. * Orthopedics consulted, Dr. Blackmon given hematoma/size/complexity and no decrease since admission for possible I&D -- initially discussed with radiology and they are unable given size/complexity * -- Appreciate assistance * -- Will need to have PT/OT re-eval given prior SNF not approved and this may change the course of his care * -- Will make NPO after midnight for possible intervention * Continue to monitor (2) Anemia: * See above, secondary to #1 * Venofer x 1 today * Would place on PO iron once constipation resolved (3) Acute on chronic diastolic (congestive) heart failure: * due to RIGHT SIDED HEART FAILURE * -- secondary to medication non-compliance/cognitive decline. * Was on lasix 40mg QOD during admission * BNP 3798 on 01/14 * ECHO with evidence for volume overload with elevated RVSP * Weight 75.9kg on 01/14 (67.7kg basline "dry weight" but told PA at [facility] clinic feels better around 160lb) * Daily weights, I&Os ordered -- no weight today but will ask nursing to obtain * Lasix 20mg IV BID given yesterday in addition to another 20mg IV this morning 01/15 * Restarted his home lasix 40mg but DAILY and added spironolactone 100mg on 01/14 * No further cough reported, lungs clearer on exam but still with faint wheezing. 92% on RA (4) Hepatic cirrhosis: * Unclear whether the patient is taking spironolactone or furosemide at the current time. * --> Lungs with wheezing and noted cough. * He notes he had been taking diuretics at discharge last admission "took until they were completed" implying that he had no refills and this was reason to not be continued on these medications --> states he is confused and had been taking both of these medications daily Restarted Lasix and spironolactone as above Ammonia further elevated to 59 and was given lactulose x 1 on but still without BM Lactulose increased to TID Declined hepatology work-up in past for cirrhosis ([facility] if needed) (5) Chronic venous insufficiency: * Stasis changes to b/l LE however with edema/fall and hx afib will get dopplers to r/o DVT * Dopplers NEGATIVE for DVT * Was to complete course of doxycycline --> did have dose left. Erythema/cellulitis to LE and put back on Doxy with improvement and would continue course at d/c * Vascular also consulted given plans for outpatient Venaseal to see about getting this done sooner/while inpatient? (6) Atrial fibrillation: * Not new. * Not on anticoagulation - unclear reason for this although contraindicated with current hematoma --> had issues in past with intraocular bleeding as well as hematuria last admission while on Lovenox * Rate controlled on no medication (7) HTN (hypertension), benign: * Chronic. BP controlled 117/61 * On lasix/spironolactone as above * Previously on carvedilol, SATNAM in past -- unclear why this was discontinued (8) Obstructive sleep apnea syndrome: * Patient reports not on CPAP at home. * Will R sided HF would benefit but patient continues to decline (9) Osteomyelitis of left ankle: * Chronic * No surgical intervention planned. * No antibiotics per isinger infectious disease - just completed course of Doxycycline for 14 days per wound care (did not complete full course) for MSSA of wound in office * Repeat cx with pin-point growth, re-incubating --> follow * CRP elevated 6.7, ESR 70 (but could be from age?), no WBC/afebrile * Placed back on doxy on 01/14 * * Continued wound care while inpatient Hypothyroidism -- Supposedly previously on 50mcg daily but has not been on. Last TSH elevated with normal FT4 but did discuss with and patient not to be on Synthroid at this time, was discontinued Palliative consultation undertaken today given LACE score >=11 for goals of care Patient changed to DNR/DNI Dispo: continued inpatient stay Ortho eval as above Admission and Anticipated Discharge Date Admission Date: January 08, 2021 Supervising Physician Co-Signing Physician Notes CHLOE Supervision Note: I did not personally see or examine the patient today, but I verified all dupree points of CHLOE Ballesteros's assessment and plan with the following exceptions/additions: none Subjective Patient evaluated this afternoon. Up in bed eating lunch. Passing gas but still no BM -- discussed lactulose yesterday but will increase to TID and that this likely exacerbated by his cirrhosis. Continues on abx for cellulitis which is looking better. Left thigh painful today but controlled with ordered medication. Discussed increased size of hematoma and will have Dr. Lorir bee for possible I&D as given complexity and size radiology not comfortable at this time. Initially without rehab at d/c but discussed this may change things. He is primarily concerned with quality and getting home but is agreeable to current interventions/plan. No fever, chills, chest pain, shortness of breath, abdominal pain, nausea or vomiting at this time. Questions/concerns addressed at this time. Left voicemail for with updated plan. Review of Systems Review of Systems: All systems reviewed & are unremarkable except as noted in HPI & below Physical Exam Constitutional: well developed, + thin and + frail appearing; no acute distress Eyes: + anicteric sclerae and PERRL ENMT: Ears: no hearing impairment Neck: trachea midline, no thyromegaly Respiratory: normal respiratory effort; no respiratory distress and no labored breathing Auscultation: + diminished lung sounds (bases) and + wheezes (faint end expiratory) Cardiovascular: Rate/Rhythm: + bradycardic Heart Sounds: normal S1 and normal S2; no murmur Vessels: + JVD Extremities: normal capillary refill, + calf tenderness (bilaterally), + pedal edema and + edema (+1 edema b/l with erythema ) Gastrointestinal (Abdomen): Inspection/Auscultation: + abdomen distended and normal bowel sounds Percussion/Palpation: abdomen nontender, no guarding and abdomen not rigid Musculoskeletal: no cyanosis or clubbing, extremities motor strength 5/5 (hematoma over left thigh, tender) Skin: + turgor decreased, + dry skin and + ecchymosis (left side of face) Trauma: + hematoma (Left leg ENLARGED 31cmx7.5cm) Neurologic: PERRL, EOMI, accommodation nl, no face palsy, no dysarthria moves all extremities and awake Psychiatric: Orientation: alert and oriented x 3 (at times intermittently confused) Insight: + poor insight Genitourinary: no CVA tenderness Lymphatic: no cervical or axillary lymphadenopathy Results & Data Results & Data ([facility]) Vital Signs (Past 12 Hours) Vital Signs Temp Pulse Resp BP BP Pulse Ox 01/15/21 08:05 67 102/64 01/15/21 07:17 36.9 C 63 18 105/59 L 91 Laboratory Results 01/15/21 01/15/21 01/15/21 Range/Units 05:53 05:53 05:53 WBC 5.93 (4.8-10.8) K/uL RBC 2.73 L (4.7-6.1) M/uL Hgb 8.1 L (14.0-18.0) g/dL Hct 25.6 L (42-52) % MCV 93.8 (80-100) fL MCH 29.7 (25-34) pg MCHC 31.6 L (32-36) g/dL RDW Std Deviation 58.3 H (36.4-46.3) fL RDW Coeff of Chel 17.1 H (11.5-14.5) % Plt Count 262 (130-400) K/uL MPV 8.4 (7.4-10.4) fL ESR (0-20) mm/hr Sodium 135 L (136-145) mmol/L Potassium 3.9 (3.5-5.1) mmol/L Chloride 102 (98-107) mmol/L Carbon Dioxide 30 (21-32) mmol/L Anion Gap 3.0 (3-11) BUN 23 H (7-18) mg/dl Creatinine 0.90 (0.6-1.4) mg/dl Est Cr Clr Drug Dosing 59.7 ml/min Est GFR ( Amer) 88.7 Est GFR (Non-Af Amer) 76.5 BUN/Creatinine Ratio 25.8 H (10-20) Glucose 92 (70-99) mg/dl Calcium 7.4 L (8.5-10.1) mg/dl Iron 27 L (35-175) mcg/dl TIBC 312 (250-450) mcg/dl Transferrin 193 L (200-360) mg/dl Transferrin % Sat 10 L (20-50) % Ferritin 113.9 (8-388) ng/ml Total Bilirubin 2.2 H (0.2-1) mg/dl AST 41 H (15-37) U/L ALT 23 (12-78) U/L Alkaline Phosphatase 235 H (45-117) U/L Ammonia 59.0 H (11-32) umol/L C-Reactive Protein (0-0.29) mg/dl NT-Pro-B Natriuret Pep (0-1800) pg/ml Total Protein 6.6 (6.4-8.2) gm/dl Albumin 2.3 L (3.4-5.0) gm/dl Globulin 4.3 H (2.5-4.0) gm/dl Albumin/Globulin Ratio 0.5 L (0.9-2) Procalcitonin (0-0.5) ng/ml 01/14/21 01/14/21 01/14/21 Range/Units 15:37 15:37 15:37 WBC (4.8-10.8) K/uL RBC (4.7-6.1) M/uL Hgb (14.0-18.0) g/dL Hct (42-52) % MCV (80-100) fL MCH (25-34) pg MCHC (32-36) g/dL RDW Std Deviation (36.4-46.3) fL RDW Coeff of Chel (11.5-14.5) % Plt Count (130-400) K/uL MPV (7.4-10.4) fL ESR 70 H (0-20) mm/hr Sodium (136-145) mmol/L Potassium (3.5-5.1) mmol/L Chloride (98-107) mmol/L Carbon Dioxide (21-32) mmol/L Anion Gap (3-11) BUN (7-18) mg/dl Creatinine (0.6-1.4) mg/dl Est Cr Clr Drug Dosing ml/min Est GFR ( Amer) Est GFR (Non-Af Amer) BUN/Creatinine Ratio (10-20) Glucose (70-99) mg/dl Calcium (8.5-10.1) mg/dl Iron (35-175) mcg/dl TIBC (250-450) mcg/dl Transferrin (200-360) mg/dl Transferrin % Sat (20-50) % Ferritin (8-388) ng/ml Total Bilirubin (0.2-1) mg/dl AST (15-37) U/L ALT (12-78) U/L Alkaline Phosphatase (45-117) U/L Ammonia (11-32) umol/L C-Reactive Protein 6.77 H (0-0.29) mg/dl NT-Pro-B Natriuret Pep (0-1800) pg/ml Total Protein (6.4-8.2) gm/dl Albumin (3.4-5.0) gm/dl Globulin (2.5-4.0) gm/dl Albumin/Globulin Ratio (0.9-2) Procalcitonin 0.14 (0-0.5) ng/ml 01/14/21 01/14/21 01/14/21 Range/Units 09:18 08:03 08:03 WBC (4.8-10.8) K/uL RBC (4.7-6.1) M/uL Hgb (14.0-18.0) g/dL Hct (42-52) % MCV (80-100) fL MCH (25-34) pg MCHC (32-36) g/dL RDW Std Deviation (36.4-46.3) fL RDW Coeff of Chel (11.5-14.5) % Plt Count (130-400) K/uL MPV (7.4-10.4) fL ESR (0-20) mm/hr Sodium 133 L (136-145) mmol/L Potassium 4.5 (3.5-5.1) mmol/L Chloride 101 (98-107) mmol/L Carbon Dioxide 28 (21-32) mmol/L Anion Gap 5.0 (3-11) BUN 26 H (7-18) mg/dl Creatinine 0.92 (0.6-1.4) mg/dl Est Cr Clr Drug Dosing 58.4 ml/min Est GFR ( Amer) 86.4 Est GFR (Non-Af Amer) 74.5 BUN/Creatinine Ratio 28.7 H (10-20) Glucose 85 (70-99) mg/dl Calcium 8.1 L (8.5-10.1) mg/dl Iron (35-175) mcg/dl TIBC (250-450) mcg/dl Transferrin (200-360) mg/dl Transferrin % Sat (20-50) % Ferritin (8-388) ng/ml Total Bilirubin (0.2-1) mg/dl AST (15-37) U/L ALT (12-78) U/L Alkaline Phosphatase (45-117) U/L Ammonia 50.0 H (11-32) umol/L C-Reactive Protein (0-0.29) mg/dl NT-Pro-B Natriuret Pep 3798 H (0-1800) pg/ml Total Protein (6.4-8.2) gm/dl Albumin (3.4-5.0) gm/dl Globulin (2.5-4.0) gm/dl Albumin/Globulin Ratio (0.9-2) Procalcitonin (0-0.5) ng/ml Diagnostic Findings MR femur LT wo con CLINICAL HISTORY: Follow-up hematoma. COMPARISON STUDY: CT of the left femur January 08, 2021. TECHNIQUE: Utilizing a 1.5 Katy magnet and dedicated coil, multiplanar, multi echo imaging of the left femur and thigh was performed without intravenous contrast. FINDINGS: No marrow edema is identified within the left femur to suggest a frac ture. There is no suspicious marrow replacement. There is susceptibility artifact from bilateral knee arthroplasties. Note is made of a large mixed signal intensity complex fluid collection within the deep subcutaneous tissues of the posterolateral aspect of the left thigh. This is incompletely imaged on this exam but measures at least 31.7 x 12.5 x 7.7 cm. This has mildly increased in size since CT of January 08, 2021 when it measured approximately 30 x 11 x 7.5 cm. This immediately overlies the fascia. Note is made of a small amount of subdural fascial fluid. No fascial fluid is noted as well as mild intramuscular edema. IMPRESSION: 1. Mild increase in size of the large left thigh hematoma, measuring 31.7 x 12.5 x 7.[address] of January 08, 2021. This finding will be called/faxed to the ordering provider at time of dictation. 2. Small amount of subfascial/interfascial fluid as well as intramuscular edema within the left thigh. 3. No left femoral fracture. MRI OF THE LEFT ANKLE WITHOUT IV CONTRAST CLINICAL HISTORY: Left ankle infection. COMPARISON STUDY: MRI of the left ankle dated 11/09/2020. Radiographs of the left ankle dated 11/05/2020. TECHNIQUE: MRI of left ankle is performed utilizing various T1 and T2-weighted sequences in the axial, sagittal, and coronal planes. IV contrast was not administered for this examination. The examination is modestly degraded by motion artifact. Note that interpretation is significantly suboptimal without current plain film correlate. FINDINGS: Faint marrow edema is again seen peripherally in the medial malleolus with small cortical defects. This has decreased as compared to the 11/09/2020 examination. An overlying soft tissue wound is again noted. No additional foci of similar marrow change is seen throughout the ankle or hindfoot. The ankle mortise is intact. No osteochondral defect is seen in the talar dome. There is trace joint fluid. The Achilles tendon is normal in morphology and signal inte nsity. The tibialis posterior tendon is thickened and tendinotic with partial thickness tearing. Surrounding fluid indicates tenosynovitis. There is a split- thickness tear of the peroneus brevis tendon. The peroneus longus tendon is thickened and tendinotic. There is chronic appearing tearing of the anterior tibiofibular ligament. The anterior talofibular ligament is intact. Normal fat is maintained within the sinus tarsi. The deltoid ligament is maintained. Imaged portions of the plantar fascia are normal in appearance. Mild diffuse soft tissue edema is seen throughout the foot. There is generalized myositis of the regional musculature. IMPRESSION: 1. There is minimal persistent subcortical marrow edema identified involving the medial malleolus. Mild chronic osteomyelitis is not excluded. 2. A wound is again seen overlying the medial malleolus. 3. Mild diffuse soft tissue edema is seen throughout the foot. No organized fluid collection is identified to suggest abscess. 4. There is a split-thickness tear of the peroneus brevis tendon. 5. There is tendinopathy with partial thickness tearing and tenosynovitis of the tibialis posterior tendon. 6. The peroneal longus tendon is also thickened and tendinotic. ECHO PG Care Time/CCT Total # of Minutes Spent Total Time Spent with Patient: Total time spent is greater than 50% in coordination of care (as documented) at patient's floor/unit and/or counseling patient: Coding Level of Care Code 63553 Subseq Hosp Care Lvl 3 Diagnoses Hematoma of left lower leg S80.12XA Anemia D64.9 Acute on chronic diastolic (congestive) heart failure I50.33 Hepatic cirrhosis K74.60 Chronic venous insufficiency I87.2 Atrial fibrillation I48.20 Atrial fibrillation type: unspecified chronic HTN (hypertension), benign I10 Obstructive sleep apnea syndrome G47.33 Osteomyelitis of left ankle M86.9 (1) Atrial fibrillation Atrial fibrillation type: unspecified chronic Qualified Code(s): I48.20 - Chronic atrial fibrillation, unspecified
[2021-01-15] MEDS ORDERED: FUROSEMIDE 20 MG in SYRINGE 0 ML IV ONE ×2 (08:45→18:45)
[2021-01-15] MEDS ORDERED: LACTULOSE SYRUP 20 GM/30 ML UDC PO SCH ×2 (09:00→12:45)
--- NOTE | 2021-01-15 09:39 | Magnetic Resonance Report ---
MRI OF THE LEFT ANKLE WITHOUT IV CONTRAST CLINICAL HISTORY: Left ankle infection. COMPARISON STUDY: MRI of the left ankle dated 11/09/2020. Radiographs of the left ankle dated 11/05/2020 . TECHNIQUE: MRI of left ankle is performed utilizing various T1 and T2-weighted sequences in the axial , sagittal, and coronal planes. IV contrast was not administered for this examination. The examinatio n is modestly degraded by motion artifact. Note that interpretation is significantly suboptimal witho ut current plain film correlate. FINDINGS: Faint marrow edema is again seen peripherally in the medial malleolus with small cortical d efects. This has decreased as compared to the 11/09/2020 examination. An overlying soft tissue wound i s again noted. No additional foci of similar marrow change is seen throughout the ankle or hindfoot. The ankle mortise is intact. No osteochondral defect is seen in the talar dome. There is trace joint fluid. The Achilles tendon is normal in morphology and signal intensity. The tibialis posterior tendo n is thickened and tendinotic with partial thickness tearing. Surrounding fluid indicates tenosynovit is. There is a split-thickness tear of the peroneus brevis tendon. The peroneus longus tendon is thic kened and tendinotic. There is chronic appearing tearing of the anterior tibiofibular ligament. The a nterior talofibular ligament is intact. Normal fat is maintained within the sinus tarsi. The deltoid ligament is maintained. Imaged portions of the plantar fascia are normal in appearance. Mild diffuse soft tissue edema is seen throughout the foot. There is generalized myositis of the regional musculat ure. IMPRESSION: 1. There is minimal persistent subcortical marrow edema identified involving the medial malleolus. Mi ld chronic osteomyelitis is not excluded. 2. A wound is again seen overlying the medial malleolus. 3. Mild diffuse soft tissue edema is seen throughout the foot. No organized fluid collection is ident ified to suggest abscess. 4. There is a split-thickness tear of the peroneus brevis tendon. 5. There is tendinopathy with partial thickness tearing and tenosynovitis of the tibialis posterior t endon. 6. The peroneal longus tendon is also thickened and tendinotic. Electronically signed by: Braulio Villalobos M.D. 01/15/2021 9:38 AM
[2021-01-15] MEDS: oxyCODONE HCL IR 5 MG TAB (IMMEDIATE RELEASE) PO PRN (11:43)
--- NOTE | 2021-01-15 11:46 | Palliative Care Consultation ---
Date of Consultation January 15, 2021 Assessment & Plan (1) Palliative care encounter: I spoke with Mrs. Vernon on the phone. She tells me that Markell has been a very active person and was an avid skier. Being able to maintain his physical activity has been very important to him. She has seen a decline in his cognition and function over the last few months and recognizes that each time he comes to the hospital he seems to lose a little ground. He has been adamant about remaining at home as long as possible and she would like to care for him at home. He did not qualify for SNF rehab through his insurance but she would be interested in home [facility] care for his LE wounds and physical therapy to improve his strength and endurance. Their goal is for him to be able to go to the beach at the end of March with his family. We discussed goals of care moving forward. He has a living will and would not want extraordinary measures to prolong his life. She feels that he would want hospitalization if indicated for treatable conditions. We discussed code status which is not con sistent with his living will and the fact that resuscitation would not return him to his prior level of function if his heart stopped or his breathing stopped. If that were to happen, she would not want resuscitation. Code status will be changed to reflect this. (2) Hematoma of left thigh: Encounter type: initial encounter Qualified Code(s): S70.12XA - Contusion of left thigh, initial encounter (3) Fall: Encounter type: initial encounter Qualified Code(s): W19.XXXA - Unspecified fall, initial encounter (4) Hepatic cirrhosis: (5) Chronic venous insufficiency: (6) Osteomyelitis of left ankle: (7) Right-sided heart failure: History of Present Illness Reason for Consultation: goals of care Requesting Physician: ORIN Kruger Attending Physician: Zee Cornejo MD History of Present Illness 85 yo gentleman admitted with weakness and left lower extremity edema. He did have a fall at home and his has been having increased difficulty caring for him at home. She has noticed a decline in his cognitive function at home over the last few months. He has history of mixed heart failure, cirrhosis and afib. He also has YURIDIA. Most recent echo shows normal LV function with EF 50- 55% and elevated right ventricular pressure. He has had three admissions in the last year, most recently about a month ago for heart failure. He has been confused and is not able to provide an accurate history. Allergies Allergy/AdvReac Type Severity Reaction Status Date / Time merbromin Allergy Intermediate ALLERGIC Verified 01/08/21 09:06 TO MERCUROCHROME, RASH mercury (elemental) AdvReac Intermediate Rash Verified 01/08/21 09:06 sulfamethoxazole AdvReac Intermediate GI UPSET, Verified 01/08/21 09:06 FEVER, HEADACHE trimethoprim AdvReac Intermediate GI UPSET, Verified 01/08/21 09:06 FEVER, HEADACHE ciprofloxacin AdvReac Mild GI SYMPTOMS Verified 01/08/21 09:06 Home Medications Medication Instructions Recorded Confirmed Type No Known Home Medications 01/08/21 01/08/21 History Patient History Medical History Actinic keratosis Aortic aneurysm Aortic stenosis, mild Arrhythmia HX Atrial fibrillation Bifascicular bundle branch block BPH (benign prostatic hyperplasia) Bronchitis 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 Chronic cough Chronic obstructive pulmonary disease Duodenal ulcer HX Dyspnea Enlarged prostate with lower urinary tract symptoms (LUTS) History of duodenal ulcer History of edema History of gross hematuria History of hepatitis History of retinal hemorrhage Hypertension Hypoxia Laceration of scalp with delay in treatment Left knee DJD Left shoulder pain Liver cirrhosis Macular degeneration Pneumonia ON ANTIBIOTICS CURRENTLY X 5 DAYS THRU PCP Positive JESSICA (antinuclear antibody) Pulmonary hypertension Retinal hemorrhage Right-sided heart failure Sleep apnea Traumatic hematoma of left upper arm Traumatic open wound of right lower leg with delayed healing Upper respiratory infection 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 Mother , Age 34 No problems noted. Denies family history of Colon cancer Ovarian cancer Prostate cancer Myocardial infarction Breast cancer Social History Smoking Status: Former smoker Number of Years Since Quit: 13; Second Hand Exposure: No; Hx Alcohol Use: Yes Alcohol type: wine Alcohol Intake Frequency Comment: 2 glasses of wine with dinner every day Hx Substance Use: No Preferred Language: Tristanian Communication Ability: Effective Visual Impairment: Diminished Hearing Ability: Normal Jockey Room Custodian Required: No Beliefs That Will Affect Care: None marital status: Current Living Situation: Spouse current occupational status: retired 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 Feels Safe at Home: Yes Seatbelt Use: always Assistive Devices: Walker Review of Systems Review of Systems: [place] Symptom Assessment Scale Pain 1/3 Dyspnea 1/3 Fatigue 2/3 Drowsiness 0/3 Palliative Performance Score 50% Physical Exam Constitutional: + frail appearing; no acute distress Eyes: Ecchymosis around left eye and cheek Respiratory: normal respiratory effort; no labored breathing Cardiovascular: Extremities: + edema Musculoskeletal: Extremities: + muscle atrophy Skin: vascular skin changes Neurologic: awake and + confused Results & Data ([facility]) Vital Signs (Past 12 Hours) Vital Signs Temp Pulse Resp BP BP Pulse Ox 01/15/21 08:05 67 102/64 01/15/21 07:17 98.4 F 63 18 105/59 L 91 PG Care Time/CCT Total # of Minutes Spent Total Time Spent with Patient: Total time spent is greater than 50% in coordination of care (as documented) at patient's floor/unit and/or counseling patient: Total time spent 65 minutes with more than 50% of time spent on family update and support, goals of care, code status. Coding Level of Care Code 10763 Inpt Consult Level 3 Diagnoses Palliative care encounter Z51.5 Hematoma of left thigh S70.12XA Encounter type: initial encounter Fall W19.XXXA Encounter type: initial encounter Hepatic cirrhosis K74.60 Chronic venous insufficiency I87.2 Osteomyelitis of left ankle M86.9 Right-sided heart failure I50.810 Time Spent (min) 65
[2021-01-15] MEDS ORDERED: IRON SUCROSE 300 MG in SODIUM CHLORIDE 0.9% 250 ML IV ONE (13:00)
[2021-01-15] MEDS: LACTULOSE SYRUP 20 GM/30 ML UDC PO SCH ×2 (14:04→19:57)
[2021-01-15] MEDS ORDERED: VANCOMYCIN CONSULT ACTIVE PRN (17:03)
[2021-01-15] MEDS ORDERED: SODIUM CHLORIDE 0.9% 250 ML IV PRN ×2 (17:03→17:25)
--- NOTE | 2021-01-15 17:14 | Orthopedic Consultation ---
Date of Consultation January 15, 2021 Assessment & Plan (1) Hematoma of left thigh: He has a large hematoma on the lateral aspect of his left thigh. INR is 1.5 secondary to his liver disease. This is likely the source of the bleeding relative to the fall. His labs and x-rays are reviewed. The CT scan and MRI are reviewed. There is no evidence of fracture. His total knee is intact and there is no ligamentous tendon or bony injury involving the left femur area. He could live with this and that would take some time to get better. There is a chance that he gets infected. It could breakdown the skin due to its size and pressure and cause drainage and secondary infection. It may not resolve. Aspiration is another option we discussed and given the size I think it is likely that fluids going to reaccumulate and there and at this point I think very difficult to get a lot of all of the fluid out. I have offered him surgery to evacuate the hematoma. I would recommend application of a wound VAC to close down the space. We talked about the pros and cons. An informed consent was obtained. He does have a history of MRSA. Vancomycin preop. TXA. Type and cross. Surgery tomorrow. Contacted primary team. Will speak with . Present on Admission?: Yes History of Present Illness Attending Physician: Zee Cornejo MD History of Present Illness Patient is 85. He fell out of bed several days ago. He was admitted to the hospital for work-up. He has a large left leg hematoma. At rest he has no pain. His health history is noted and reviewed. Significant heart disease and liver disease. His labs are reviewed and noted as well. Allergies Allergy/AdvReac Type Severity Reaction Status Date / Time merbromin Allergy Intermediate ALLERGIC Verified 01/08/21 09:06 TO MERCUROCHROME, RASH mercury (elemental) AdvReac Intermediate Rash Verified 01/08/21 09:06 sulfamethoxazole AdvReac Intermediate GI UPSET, Verified 01/08/21 09:06 FEVER, HEADACHE trimethoprim AdvReac Intermediate GI UPSET, Verified 01/08/21 09:06 FEVER, HEADACHE ciprofloxacin AdvReac Mild GI SYMPTOMS Verified 01/08/21 09:06 Home Medications Medication Instructions Recorded Confirmed Type No Known Home Medications 01/08/21 01/08/21 History Patient History Medical History Actinic keratosis Aortic aneurysm Aortic stenosis, mild Arrhythmia HX Atrial fibrillation Bifascicular bundle branch block BPH (benign prostatic hyperplasia) Bronchitis 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 Chronic cough Chronic obstructive pulmonary disease Duodenal ulcer HX Dyspnea Enlarged prostate with lower urinary tract symptoms (LUTS) History of duodenal ulcer History of edema History of gross hematuria History of hepatitis History of retinal hemorrhage Hypertension Hypoxia Laceration of scalp with delay in treatment Left knee DJD Left shoulder pain Liver cirrhosis Macular degeneration Pneumonia ON ANTIBIOTICS CURRENTLY X 5 DAYS THRU PCP Positive JESSICA (antinuclear antibody) Pulmonary hypertension Retinal hemorrhage Right-sided heart failure Sleep apnea Traumatic hematoma of left upper arm Traumatic open wound of right lower leg with delayed healing Upper respiratory infection 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 Mother , Age 34 No problems noted. Denies family history of Colon cancer Ovarian cancer Prostate cancer Myocardial infarction Breast cancer Social History Smoking Status: Former smoker Number of Years Since Quit: 13; Second Hand Exposure: No; Hx Alcohol Use: Yes Alcohol type: wine Alcohol Intake Frequency Comment: 2 glasses of wine with dinner every day Hx Substance Use: No Preferred Language: Taiwanese Communication Ability: Effective Visual Impairment: Diminished Hearing Ability: Normal Customer Service Professional Required: No Beliefs That Will Affect Care: None marital status: Current Living Situation: Spouse current occupational status: retired 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 He can bend his knee about 45 degrees. His extensor mechanism is intact. He has 5 out of 5 knee flexion and extension strength. The knee itself is not swollen he has 1+ varus valgus valgus laxity in mid position intact posterior drawer and the knee is stable in full extension without any tenderness. Dorsalis pedis nonpalpable. Chronic wound medial aspect of the ankle benign in appearance. Dopplerable posterior tib. 5 out of 5 ankle plantarflexion dorsiflexion strength. The leg has extensive bruising. There is ruborous discoloration of both lower extremities consistent with chronic vascular disease. There is a large fluctuant mass over the lateral aspect of the left leg extending from the hip almost to the knee. Posteriorly there is an area where there is been some blistering and skin breakdown. The area is mildly tender to palpation it is fluctuant there is bruising present and induration. There is erythema over the area as well. Results & Data ([facility]) Vital Signs (Past 12 Hours) Vital Signs Temp Pulse Resp BP BP Pulse Ox 01/15/21 16:43 36.6 C 78 16 129/78 93 01/15/21 14:00 36.7 C 59 L 18 117/61 92 01/15/21 13:44 36.7 C 68 18 123/52 L 95 01/15/21 08:05 67 102/64 01/15/21 07:17 36.9 C 63 18 105/59 L 91 (1) Hematoma of left thigh Encounter type: initial encounter Qualified Code(s): S70.12XA - Contusion of left thigh, initial encounter
[2021-01-15] MEDS ORDERED: PHYTONADIONE 5 MG TAB PO STA (17:25)
--- NOTE | 2021-01-15 23:01 | Vascular Medicine Consultation ---
Date of Consultation January 15, 2021 Assessment & Plan (1) Chronic venous insufficiency: 2. Left lower extremity hematoma post fall 3. Nonhealing left ankle ulceration in the setting of osteomyelitis 4. Paroxysmal atrial fibrillation 5. Chronic diastolic heart failure 6. Cirrhosis 7. Anemia Patient with multiple active acute issues including large left lower extremity hematoma potentially requiring I&D. Prior vascular testing suggested no significant arterial insufficiency to impair wound healing. His venous insufficiency is chronic and superficial venous intervention can be safely deferred until active issues more stable. We will arrange adhesive closure as an outpatient pending clinical course. Will sign off but please contact us if we can be of any assistance while hospitalized. History of Present Illness Attending Physician: Zee Cornejo MD History of Present Illness Mr. Vernon is an 85-year-old man with a complex past medical history as outlined below seen previously in the setting of his venous insufficiency and nonhealing left ankle ulcer in the setting of of osteomyelitis. Prior vascular work-up is included an arterial duplex which showed no significant lower extremity arterial disease with normal ABIs/TBI. Venous reflux ultrasound showed left GSV/AASV and left SSV pathologic reflux. Has been scheduled to undergo left GSV/SSV adhesive closure in the next several weeks. Patient currently admitted after fall with resulting large left lower extremity hematoma. Course complicated by anemia and acute on chronic diastolic heart failure. Tentatively scheduled to undergo I&D with orthopedics tomorrow. Past medical history: Chronic diastolic heart failure, paroxysmal atrial fibrillation, mild aortic stenosis, mild pulmonary hypertension, mild MR, cirrhosis, osteoarthritis, COPD Allergies Allergy/AdvReac Type Severity Reaction Status Date / Time merbromin Allergy Intermediate ALLERGIC Verified 01/08/21 09:06 TO MERCUROCHROME, RASH mercury (elemental) AdvReac Intermediate Rash Verified 01/08/21 09:06 sulfamethoxazole AdvReac Intermediate GI UPSET, Verified 01/08/21 09:06 FEVER, HEADACHE trimethoprim AdvReac Intermediate GI UPSET, Verified 01/08/21 09:06 FEVER, HEADACHE ciprofloxacin AdvReac Mild GI SYMPTOMS Verified 01/08/21 09:06 Home Medications Medication Instructions Recorded Confirmed Type No Known Home Medications 01/08/21 01/08/21 History Patient History Medical History Actinic keratosis Aortic aneurysm Aortic stenosis, mild Arrhythmia HX Atrial fibrillation Bifascicular bundle branch block BPH (benign prostatic hyperplasia) Bronchitis 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 Chronic cough Chronic obstructive pulmonary disease Duodenal ulcer HX Dyspnea Enlarged prostate with lower urinary tract symptoms (LUTS) History of duodenal ulcer History of edema History of gross hematuria History of hepatitis History of retinal hemorrhage Hypertension Hypoxia Laceration of scalp with delay in treatment Left knee DJD Left shoulder pain Liver cirrhosis Macular degeneration Pneumonia ON ANTIBIOTICS CURRENTLY X 5 DAYS THRU PCP Positive JESSICA (antinuclear antibody) Pulmonary hypertension Retinal hemorrhage Right-sided heart failure Sleep apnea Traumatic hematoma of left upper arm Traumatic open wound of right lower leg with delayed healing Upper respiratory infection 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 Mother , Age 34 No problems noted. Denies family history of Colon cancer Ovarian cancer Prostate cancer Myocardial infarction Breast cancer Social History Smoking Status: Former smoker Number of Years Since Quit: 13; Second Hand Exposure: No; Hx Alcohol Use: Yes Alcohol type: wine Alcohol Intake Frequency Comment: 2 glasses of wine with dinner every day Hx Substance Use: No Preferred Language: Indonesian Communication Ability: Effective Visual Impairment: Diminished Hearing Ability: Normal Air And Water Tester Required: No Beliefs That Will Affect Care: None marital status: Current Living Situation: Spouse current occupational status: retired 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 Feels Safe at Home: Yes Seatbelt Use: always Assistive Devices: Denture - Upper, Denture - Lower, Glasses and Walker Review of Systems Review of Systems: Unobtainable due to cognitive status Physical Exam Physical Exam: General: Comfortable, frail elderly man Eyes: Sclerae anicteric, ecchymosis around left eye HENT: Oropharynx clear mucous membranes moist Lungs: Clear to auscultation bilaterally, no rhonchi or wheezes Cardiac: Irregular irregular, 2/6 systolic ejection murmur Abdomen: Soft, nontende Psych: Alert and oriented Extremities/Vascular: -- 2+ radial bilaterally -- 2 + DP and PT pulses. --Left thigh with large swelling and diffuse ecchymosis. Fluctuant area over left lateral thigh. Diffusely tender --Ulceration over left medial ankle dressed. Previously described. Results & Data ([facility]) Vital Signs (Past 12 Hours) Vital Signs Temp Pulse Resp BP Pulse Ox 01/15/21 19:25 98.2 F 79 18 110/58 L 93 01/15/21 16:43 97.9 F 78 16 129/78 93 01/15/21 14:00 98.1 F 59 L 18 117/61 92 01/15/21 13:44 98.1 F 68 18 123/52 L 95 PG Care Time/CCT Total # of Minutes Spent Total Time Spent with Patient: Total time spent is greater than 50% in coor dination of care (as documented) at patient's floor/unit and/or counseling patient: Coding Level of Care Code 29769 Inpt Consult Level 4 Diagnoses Chronic venous insufficiency I87.2
[2021-01-16] MEDS: DOXYCYCLINE HYCLATE 100 MG in DEXTROSE 5% 100 ML IV SCH ×2 (04:06→16:44)
[2021-01-16] MEDS ORDERED: TRANEXAMIC ACID / 0.7% NACL 1,000 MG/100 ML BAG IV ONE (06:00)
[2021-01-16] MEDS ORDERED: ceFAZolin 1000MG 1,000 MG/7.5 ML SYR IV SCH (06:00)
[2021-01-16 07:58] LABS: Basophils # (auto) 0.03 K/uL (0-0.2); Basophils % (auto) 0.5 %; Eosinophils # (auto) 0.35 K/uL (0-0.5); Eosinophils % (auto) 5.7 %; Hematocrit (blood only) 27.8 % (42-52); Hemoglobin 8.8 g/dL (14.0-18.0); Immature Granulocytes # (auto) 0.04 K/uL (0.00-0.02); Immature Granulocytes % (auto) 0.7 %; Lymphocytes # (auto) 1.12 K/uL (1.2-3.4); Lymphocytes % (auto) 18.2 %; Mean Corpuscular Hemoglobin 30.2 pg (25-34); Mean Corpuscular Hgb Conc 31.7 g/dL (32-36); Mean Corpuscular Volume 95.5 fL (80-100); Mean Platelet Volume 8.5 fL (7.4-10.4); Monocytes # (auto) 0.69 K/uL (0.11-0.59); Monocytes % (auto) 11.2 %; Neutrophils # (auto) 3.91 K/uL (1.4-6.5); Neutrophils % (auto) 63.7 %; Platelet Count 251 K/uL (130-400); RDW Coefficient of Variation 17.2 % (11.5-14.5); RDW Standard Deviation 59.4 fL (36.4-46.3); Red Blood Count 2.91 M/uL (4.7-6.1); White Blood Count 6.14 K/uL (4.8-10.8)
[2021-01-16] MEDS ORDERED: VANCOMYCIN HCL 1,250 MG in SODIUM CHLORIDE 0.9% 250 ML IV SCH ×2 (08:00→21:00)
[2021-01-16 08:07] LABS: INR 1.4 (0.9-1.1); Prothrombin Time 13.4 Seconds (9.0-12.0)
--- NOTE | 2021-01-16 08:22 | Hospitalist Progress Note ---
Date of Service January 16, 2021 Assessment & Plan (1) Hematoma of left lower leg: Secondary to fall on rug at home. CT LEFT Femur on admission with hematoma measures approximately 30 x 11 x 7.5 cm Anemia secondary to hematoma * Has gotten 2 u PRBC. Transfuse for <7 * H/h 8.1/25.6 * Iron studies with : * -->iron 27L, TIBC 312/ferritin 113 wnl, trans % sat low 10, transferrin low 193. * --> Will give dose of IV Venofer today over PO give hematoma and constipation * Repeat CBC in AM MRI with enlargement of hematoma to 31.7 x 12.5 x 7[address] of January 08, 2021. Orthopedics consulted, Dr. Blackmon given hematoma/size/complexity and no decrease since admission for possible I&D -- initially discussed with radiology and they are unable given size/complexity S/P I&D LEFT THIGH HEMATOMA 01/[address] Blackmon. EBL 25cc. * INR was 1.4 -- ordered 2 units FFP prior to surgery (given) and 10mg Vit K evening 01/15 * Per operative report, 1000cc large loculated hematoma evacuated and wound vac placed * Will need repeat I&D with wound vac changes on 01/18, 01/21, 01/23 planned * Will need repeat therapy evals to see about SNF given prior denial and was deemed at baseline. Given above, anticipate no issues with getting approval * Eating/drinking without issue * D/c'd IVF as ordered by orthopedics given patient with active HF and requiring diuresis and tolerating diet without issue * Given 20mg IV lasix in addition to his 40mg PO this morning and will repeat another 40mg IV this afternoon for continued volume overload. * Zarate placed and will get more accurate I&O. Record daily weights (2) Anemia: * See above, secondary to #1 * Would place on PO iron once constipation resolved given iron low at 27, trans sat % 10L, transferrin 193L, TIBC wnl at 312 and ferritin 113 * Venofer x 1 on 01/15 * 2 units PRBC prior to surgery and 1 unit PRBC given today * h/h improved to 8.8/8.1 * CBC in AM (3) Acute on chronic diastolic (congestive) heart failure: * due to RIGHT SIDED HEART FAILURE/CIRRHOSIS * -- secondary to medication non-compliance/cognitive decline. * Was on lasix 40mg QOD during admission but was on daily dose with 100mg spirinolactone * BNP 3798 on 01/14 * ECHO with evidence for volume overload with elevated RVSP * Weight 75.9kg on 01/14 (67.7kg basline "dry weight" but told PA at [facility]F clinic feels better around 160lb)-- unchanged essentially * D/c'd IVF as ordered by ortho in patient with active diastolic HF * Now with [facility] and will get more accurate I&O * Hold PO lasix in AM and ordered 40mg IV daily with extra doses as needed (will give extra 40mg IV this afternoon along with the 20mg IV given this morning with his usual 40mg PO) * 99% on 2L post-operatively * Continue to monitor (4) Hepatic cirrhosis: * Unclear whether the patient is taking spironolactone or furosemide at the current time. * --> Lungs with wheezing and noted cough. * He noted he had been taking diuretics at discharge last admission "took until they were completed" implying that he had no refills and this was reason to not be continued on these medications * --> states he is confused and had been taking both of these medications daily * Restarted Lasix and spironolactone as above * Ammonia further elevated to 59 and was given lactulose with BM on 01/15 (first since 01/09 and likely contributing to confusion as well) * Placed on Lactulose 20mg and increased to TID --> increasing to 40mg TID today and ordered 4 doses of Rifaximin for hepatic encephalopathy although patient fairly oriented but short term memory/insight poor * Ammonia 57.8 * LFTs fluctuating but stable -- Bilirubin continued to improve to 2.1 (from 4.0 on 01/09), AST 54, ALT 26, alk phos 261 * Continue to monitor * Declined hepatology work-up in past for cirrhosis ([employer] [facility] if needed) as patient DNR and focusing on comfort/quality (5) Chronic venous insufficiency: * Stasis changes to b/l LE however with edema/fall and hx afib will get Doppler to r/o DVT * Dopplers NEGATIVE for DVT * Vascular also consulted given plans for outpatient Venaseal to see about getting this done sooner/while inpatient? * --> Plans for outpatient intervention * Was to complete course of doxycycline --> did have dose left. Erythema/cellulitis to LE and put back on Doxy with improvement and would continue course at d/c * CRP, ESR improving and would continue at least 5-7 day course despite cx negative as he was on doxy for total 14 days but did not complete course [employer] (6) Atrial fibrillation: * Not new. * Not on anticoagulation - unclear reason for this although contraindicated with current hematoma --> had issues in past with intraocular bleeding as well as hematuria last admission while on Lovenox * Venous Dopplers 01/14 NEGATIVE for DVT * Rate controlled on no medication (7) HTN (hypertension), benign: * Chronic. BP controlled 117/61 * On lasix/spironolactone as above * Previously on carvedilol, SATNAM in past -- unclear why this was discontinued (8) Obstructive sleep apnea syndrome: * Patient reports not on CPAP at home. * With R sided HF would benefit but patient continues to decline (9) Osteomyelitis of left ankle: * Chronic * No surgical intervention planned. * No antibiotics per [facility] infectious disease - just completed course of Doxycycline for 14 days per wound care (did not complete full course) for MSSA of wound in office * Repeat cx with pin-point growth, re-incubating --> follow * CRP elevated 6.7, ESR 70 (but could be from age?) --> IMPROVING ON REPEAT * no WBC/afebrile * Placed back on doxy on 01/14 * Continued wound care while inpatient Hypothyroidism -- Supposedly previously on 50mcg daily but has not been on. Last TSH elevated with normal FT4 but did discuss with and patient not to be on Synthroid at this time, was discontinued Palliative consultation undertaken today given LACE score >=11 for goals of care Patient changed to DNR/DNI Dispo: continued inpatient stay as above through next week Will need repeat therapy evals and look back into SNF/rehab at d/c Admission and Anticipated Discharge Date Admission Date: January 08, 2021 Supervising Physician Co-Signing Physician Notes PA Supervision Note: I did not personally see or examine the patient today, but I verified all dupree points of CHLOE Ballesteros's assessment and plan with the following exceptions/additions: none Subjective Patient evaluated this afternoon following surgery. Got 2 units FFP prior to surgery and Vit K 10mg last evening. Pain much better and pressure relieved since I&D. Hungry and actively eating lunch without difficulty. Some wheezing noted and will give extra IV lasix but no overt shortness of breath. Had some discomfort following surgery and felt need to void but couldn't and zarate catheter was placed -- feeling much better since that time. No chest pain. No fever, chills, abdominal pain, nausea or vomiting. One BM last night and passing gas but no BM. Will have repeat wound vac exchange Thursday and discussed likely will meet criter ia for rehab but will wait repeat PT/OT evals and monitor progress over next several days. Review of Systems Review of Systems: All systems reviewed & are unremarkable except as noted in HPI & below Physical Exam Constitutional: well developed, + thin and + frail appearing; no acute distress Eyes: + anicteric sclerae and PERRL ENMT: Ears: no hearing impairment Neck: trachea midline, no thyromegaly Respiratory: normal respiratory effort and + cough; no respiratory distress, no labored breathing and not tachypneic Auscultation: + diminished lung sounds (bases) and + wheezes 99% on 2L NC Cardiovascular: Rate/Rhythm: + bradycardic Heart Sounds: normal S1 and normal S2; no murmur Vessels: + JVD Extremities: normal capillary refill, + calf tenderness (bilaterally), + pedal edema and + edema (+1 edema b/l with erythema, decreased erythema) Gastrointestinal (Abdomen): Inspection/Auscultation: + abdomen distended (less) and normal bowel sounds Percussion/Palpation: + ascites; abdomen nontender, no guarding and abdomen not rigid Musculoskeletal: dressing to LEFT thigh c/d/i. surrounding erythema and induration wound vac with bloody/darkened drainage weakened pulses 1+ b/l, absent PT pulse NVI Skin: + dry skin and + ecchymosis (left side of face) Trauma: + hematoma (Left leg ENLARGED 31cmx7.5cm --> now with wound vac) Neurologic: PERRL, EOMI, accommodation nl, no face palsy, no dysarthria moves all extremities and awake Psychiatric: Orientation: alert and oriented x 3 (at times intermittently confused) Insight: + poor insight Genitourinary: no CVA tenderness zarate draining yellow urine penile edema, no erythema Lymphatic: no cervical or axillary lymphadenopathy Results & Data Results & Data ([facility]) Vital Signs (Past 12 Hours) Vital Signs Temp Pulse Resp BP Pulse Ox 01/16/21 07:00 36.7 C 74 16 110/61 93 Laboratory Results 01/16/21 01/16/21 01/16/21 Range/Units 07:41 07:37 07:37 WBC (4.8-10.8) K/uL RBC (4.7-6.1) M/uL Hgb (14.0-18.0) g/dL Hct (42-52) % MCV (80-100) fL MCH (25-34) pg MCHC (32-36) g/dL RDW Std Deviation (36.4-46.3) fL RDW Coeff of Chel (11.5-14.5) % Plt Count (130-400) K/uL MPV (7.4-10.4) fL Immature Gran % (Auto) % Neut % (Auto) % Lymph % (Auto) % [place] % (Auto) % Eos % (Auto) % Baso % (Auto) % Neut # (Auto) (1.4-6.5) K/uL Lymph # (Auto) (1.2-3.4) K/uL [place] # (Auto) (0.11-0.59) K/uL Eos # (Auto) (0-0.5) K/uL Baso # (Auto) (0-0.2) K/uL Immature Gran # (Auto) (0.00-0.02) K/uL ESR 45 H (0-20) mm/hr PT (9.0-12.0) Seconds INR (0.9-1.1) Sodium 136 (136-145) mmol/L Potassium 3.9 (3.5-5.1) mmol/L Chloride 102 (98-107) mmol/L Carbon Dioxide 30 (21-32) mmol/L Anion Gap 4.0 (3-11) BUN 20 H (7-18) mg/dl Creatinine 0.96 (0.6-1.4) mg/dl Est Cr Clr Drug Dosing 56.0 ml/min Est GFR ( Amer) 82.0 Est GFR (Non-Af Amer) 70.8 BUN/Creatinine Ratio 20.5 H (10-20) Glucose 105 H (70-99) mg/dl Calcium 8.2 L (8.5-10.1) mg/dl Total Bilirubin 2.1 H (0.2-1) mg/dl AST 54 H (15-37) U/L ALT 26 (12-78) U/L Alkaline Phosphatase 261 H (45-117) U/L Ammonia 57.8 H (11-32) umol/L C-Reactive Protein 4.32 H (0-0.29) mg/dl Total Protein 6.5 (6.4-8.2) gm/dl Albumin 2.5 L (3.4-5.0) gm/dl Globulin 4.0 (2.5-4.0) gm/dl Albumin/Globulin Ratio 0.6 L (0.9-2) Blood Type Antibody Screen Crossmatch 01/16/21 01/16/21 01/15/21 Range/Units 07:37 07:37 17:23 WBC 6.14 (4.8-10.8) K/uL RBC 2.91 L (4.7-6.1) M/uL Hgb 8.8 L (14.0-18.0) g/dL Hct 27.8 L (42-52) % MCV 95.5 (80-100) fL MCH 30.2 (25-34) pg MCHC 31.7 L (32-36) g/dL RDW Std Deviation 59.4 H (36.4-46.3) fL RDW Coeff of Chel 17.2 H (11.5-14.5) % Plt Count 251 (130-400) K/uL MPV 8.5 (7.4-10.4) fL Immature Gran % (Auto) 0.7 % Neut % (Auto) 63.7 % Lymph % (Auto) 18.2 % [place] % (Auto) 11.2 % Eos % (Auto) 5.7 % Baso % (Auto) 0.5 % Neut # (Auto) 3.91 (1.4-6.5) K/uL Lymph # (Auto) 1.12 L (1.2-3.4) K/uL [place] # (Auto) 0.69 H (0.11-0.59) K/uL Eos # (Auto) 0.35 (0-0.5) K/uL Baso # (Auto) 0.03 (0-0.2) K/uL Immature Gran # (Auto) 0.04 H (0.00-0.02) K/uL ESR (0-20) mm/hr PT 13.4 H (9.0-12.0) Seconds INR 1.4 H (0.9-1.1) Sodium (136-145) mmol/L Potassium (3.5-5.1) mmol/L Chloride (98-107) mmol/L Carbon Dioxide (21-32) mmol/L Anion Gap (3-11) BUN (7-18) mg/dl Creatinine (0.6-1.4) mg/dl Est Cr Clr Drug Dosing ml/min Est GFR ( Amer) Est GFR (Non-Af Amer) BUN/Creatinine Ratio (10-20) Glucose (70-99) mg/dl Calcium (8.5-10.1) mg/dl Total Bilirubin (0.2-1) mg/dl AST (15-37) U/L ALT (12-78) U/L Alkaline Phosphatase (45-117) U/L Ammonia (11-32) umol/L C-Reactive Protein (0-0.29) mg/dl Total Protein (6.4-8.2) gm/dl Albumin (3.4-5.0) gm/dl Globulin (2.5-4.0) gm/dl Albumin/Globulin Ratio (0.9-2) Blood Type O Positive Antibody Screen NEGATIVE Crossmatch See Detail PG Care Time/CCT Total # of Minutes Spent Total Time Spent with Patient: Total time spent is greater than 50% in coordination of care (as documented) at patient's floor/unit and/or counseling patient: Coding Level of Care Code 93314 Subseq Hosp Care Lvl 3 Diagnoses Hematoma of left lower leg S80.12XA Anemia D64.9 Acute on chronic diastolic (congestive) heart failure I50.33 Hepatic cirrhosis K74.60 Chronic venous insufficiency I87.2 Atrial fibrillation I48.20 Atrial fibrillation type: unspecified chronic HTN (hypertension), benign I10 Obstructive sleep apnea syndrome G47.33 Osteomyelitis of left ankle M86.9 (1) Atrial fibrillation Atrial fibrillation type: unspecified chronic Qualified Code(s): I48.20 - Chronic atrial fibrillation, unspecified
[2021-01-16 08:28] LABS: Albumin Level 2.5 gm/dl (3.4-5.0); BUN Creatinine Ratio 20.5 (10-20); C Reactive Protein 4.32 mg/dl (0-0.29); Calcium 8.2 mg/dl (8.5-10.1); Est GFR (Non-African American) 70.8; Potassium 3.9 mmol/L (3.5-5.1)
[2021-01-16 08:31] LABS: Albumin Globulin Ratio 0.6 (0.9-2); Bilirubin,Total 2.1 mg/dl (0.2-1); Total Protein 6.5 gm/dl (6.4-8.2)
[2021-01-16] MEDS: POLYETHYLENE (MIRALAX) 17 GM PACK PO SCH (09:00)
[2021-01-16] MEDS: DOCUSATE SODIUM 100 MG CAP PO SCH ×2 (09:00→19:56)
[2021-01-16] MEDS ORDERED: ATROPINE SULFATE 0.1 MG/ML 10ML SYR IV PRN (09:54)
[2021-01-16] MEDS ORDERED: MEPERIDINE HCL 25 MG/ML CARP/VIAL IV PRN (09:54)
[2021-01-16] MEDS ORDERED: ONDANSETRON INJ 2 MG/ML 2 ML VIAL IV PRN ×2 (09:54→13:18)
[2021-01-16] MEDS ORDERED: PHENYLEPHRINE 100MCG/ML 5ML SYR IV PRN (09:54)
[2021-01-16] MEDS ORDERED: fentaNYL citrate 100 MCG/2 ML VIAL IV PRN (09:54)
[2021-01-16] MEDS ORDERED: LABETALOL HCL IV 5 MG/ML 20ML IV PRN (09:54)
[2021-01-16] MEDS ORDERED: ePHEDrine sulfate 50 MG/ML AMP IV PRN (09:54)
--- NOTE | 2021-01-16 09:56 | Anesthesiology Consultation ---
Date of Service January 16, 2021 The patient is receiving FFP on the floor. Assessment & Plan (1) Encounter for pre-operative examination: Chart Review Chart Review: Acceptable Risk for Surgery (elevated risk but necessary procedure) and Patient NOT seen in Pre Admission Testing Consults Requested none medicine is following the patient History Surgery Operation Date: 01/16/21 09:50 Proposed Procedures p Left Thigh Incision and Drainage of Hematoma with Wound Vac Placement - Pérez Blackmon MD Height/Weight Height: 5 ft 10 in Weight: 75.7 kg Allergies Allergy/AdvReac Type Severity Reaction Status Date / Time merbromin Allergy Intermediate ALLERGIC Verified 01/08/21 09:06 TO MERCUROCHROME, RASH mercury (elemental) AdvReac Intermediate Rash Verified 01/08/21 09:06 sulfamethoxazole AdvReac Intermediate GI UPSET, Verified 01/08/21 09:06 FEVER, HEADACHE trimethoprim AdvReac Intermediate GI UPSET, Verified 01/08/21 09:06 FEVER, HEADACHE ciprofloxacin AdvReac Mild GI SYMPTOMS Verified 01/08/21 09:06 Medications Home Medications Medication Instructions Recorded Confirmed Last Taken No Known Home Medications 01/08/21 01/08/21 Unknown Active Medications Generic Name Dose Route Start Last Admin Trade Name Freq PRN Reason Stop Dose Admin Acetaminophen 650 mg 01/08/21 13:27 01/13/21 06:13 Acetaminophen 325 Mg Tab PO 02/07/21 13:26 650 mg Q4H PRN Administration pain/fever Docusate Sodium 100 mg 01/14/21 09:45 01/16/21 09:00 Docusate Sodium 100 Mg Cap PO 02/13/21 09:44 Not Given BID TONY Furosemide 40 mg 01/15/21 09:00 01/15/21 08:06 Furosemide 40 Mg Tab PO 02/14/21 08:59 40 mg QAM TONY Administration Doxycycline Hyclate 100 mg/ 110 mls @ 50 mls/hr 01/14/21 17:00 01/16/21 06:13 Dextrose IV 01/21/21 16:59 Infused Q12H TONY Infusion Furosemide 20 mg/ Syringe 2 mls @ 4 mls/min 01/16/21 10:00 01/16/21 09:40 IV 01/16/21 18:00 4 mls/min 1000 TONY Administration Lactulose 20 gm 01/15/21 12:45 01/15/21 19:57 Lactulose Syrup 20 Gm/30 Ml Udc PO 02/14/21 12:44 20 gm TID TONY Administration Oxycodone HCl 5 mg 01/08/21 13:27 01/15/21 11:43 Oxycodone Hcl Ir 5 Mg Tab (Immediate Release) PO 01/22/21 13:26 5 mg Q4H PRN Administration Pain Polyethylene Glycol 17 gm 01/12/21 01:03 01/14/21 08:56 Polyethylene (Miralax) 17 Gm Pack PO 02/11/21 01:02 17 gm BID PRN Administration Constipation Polyethylene Glycol 17 gm 01/14/21 09:45 01/16/21 09:00 Polyethylene (Miralax) 17 Gm Pack PO 02/13/21 09:44 Not Given BID TONY Rifaximin 400 mg 01/15/21 21:00 01/15/21 20:01 Rifaximin 200 Mg Tablet PO 01/16/21 14:01 400 mg TID TONY Administration Spironolactone 100 mg 01/15/21 09:00 01/15/21 08:07 Spironolactone 100 Mg Tab PO 02/14/21 08:59 100 mg QAM TONY Administration Past Medical History Medical History Actinic keratosis Anemia Aortic aneurysm Aortic stenosis, mild Arrhythmia HX Atrial fibrillation Bifascicular bundle branch block BPH (benign prostatic hyperplasia) Bronchitis 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 Chronic cough Chronic obstructive pulmonary disease Duodenal ulcer HX Dyspnea Enlarged prostate with lower urinary tract symptoms (LUTS) History of duodenal ulcer History of edema History of gross hematuria History of hepatitis History of retinal hemorrhage Hypertension Hypoxia Laceration of scalp with delay in treatment Left knee DJD Left shoulder pain Liver cirrhosis Macular degeneration Pneumonia ON ANTIBIOTICS CURRENTLY X 5 DAYS THRU PCP Positive JESSICA (antinuclear antibody) Pulmonary hypertension Retinal hemorrhage Right-sided heart failure Sleep apnea Traumatic hematoma of left upper arm Traumatic open wound of right lower leg with delayed healing Upper respiratory infection 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 Mother , Age 34 No problems noted. Denies family history of Colon cancer Ovarian cancer Prostate cancer Myocardial infarction Breast cancer Past Surgical History Surgical History History of cardiac radiofrequency ablation S/P History of colonoscopy History of esophagogastroduodenoscopy (EGD) History of gastrostomy History of total knee replacement R/L Hx of transurethral resection of prostate Social History Smoking Status: Former smoker tobacco type: pipe Hx Alcohol Use: Yes Alcohol type: wine alcohol intake frequency: a few times a week Alcohol Intake Frequency Comment: sometimes with dinner Hx Substance Use: No substance use type: does not use Physical Exam Vital Signs Last Vital Signs Temp 36.8 C 01/16/21 09:57 Pulse 73 01/16/21 09:57 Resp 16 01/16/21 09:57 BP 124/66 01/16/21 09:57 Pulse Ox 92 01/16/21 09:57 Testing Laboratory Results 01/16/21 07:37 01/16/21 07:37 PT 13.4 Seconds (9.0-12.0) H 01/16/21 07:37 INR 1.4 (0.9-1.1) H 01/16/21 07:37 APTT 48.7 Seconds (21.0-31.0) H* 01/08/21 08:42 Urine Color Dark Yellow 01/08/21 08:51 Urine Appearance Clear (Clear) 01/08/21 08:51 Urine pH 6.0 (4.5-7.5) 01/08/21 08:51 Ur Specific [place] 1.020 (1.000-1.030) 01/08/21 08:51 Urine Protein Trace (Negative) H 01/08/21 08:51 Urine Glucose (UA) Negative (Negative) 01/08/21 08:51 Urine Ketones Negative (Negative) 01/08/21 08:51 Urine Nitrite Negative (Negative) 01/08/21 08:51 Ur Leukocyte Esterase 1+ (Negative) H 01/08/21 08:51 Urine WBC (Auto) 5-10 /hpf (0-5) H 01/08/21 08:51 Urine RBC (Auto) 0-4 /hpf (0-4) 01/08/21 08:51 U Hyaline Cast (Auto) 1-5 /lpf (0-5) 01/08/21 08:51 U Epithel Cells (Auto) 10-20 /lpf (0-5) H 01/08/21 08:51 Urine Bacteria (Auto) Negative (Negative) 01/08/21 08:51 Blood Type O Positive 01/15/21 17:23 Antibody Screen NEGATIVE 01/15/21 17:23 01/14/21 15:51 Gram Stain - Final Ankle Wound Culture - Final Corynebacterium species 01/08/21 08:42 Aerobic Blood Culture - Final Blood No growth in Aerobic bottle after 5 days. Anaerobic Blood Culture - Final No growth in Anaerobic bottle after 5 days. 01/08/21 08:31 Aerobic Blood Culture - Final Blood No growth in Aerobic bottle after 5 days. Anaerobic Blood Culture - Final No growth in Anaerobic bottle after 5 days. Electrocardiogram Date: 01/08/21 Findings: + RBBB Afib with PVCs, rate 78 Chest X-Ray Date: 01/08/21 XR chest 1V not portable CLINICAL HISTORY: weakness COMPARISON STUDY: Chest CT November 29, 2020. FINDINGS: There is no pneumothorax or pleural effusion. Cardiomegaly is unchanged. Pulmonary vascular congestion without overt pulmonary edema. Skinfold project over each hemithorax. IMPRESSION: 1. No pneumothorax. 2. Cardiomegaly with pulmonary vascular congestion, similar to prior exam. ACT 112: Negative or not required by law. Electronically signed by: Alan Chung M.D. 01/08/2021 11:07 AM Dictated: 01/08/21 1106Transcribed: 01/08/21 1106 Echocardiogram Date: 01/14/21 EF: 50-55 Other Findings: + atrial enlargement (biatrial) and + RVH (mild to moderate dilation) RVSP 40-50 mmHg, RV septal flattening Cervical Spine Date: 01/08/21 CT OF THE CERVICAL SPINE WITHOUT CONTRAST CLINICAL HISTORY: Neck pain following fall. COMPARISON STUDY: Cervical spine CT November 07, 2019. TECHNIQUE: Helical axial images of the cervical spine were obtained without IV contrast. Sagittal and coronal reconstructions were viewed. Automated exposure control was utilized for the study. A dose lowering technique was utilized adhering to the principles of ALARA. FINDINGS: Reversal of the normal cervical lordosis is again noted. Vertebral body heights are maintained. No acute cervical spine fracture or subluxation is present. There is no prevertebral edema. Facet joints are intact. Severe multilevel disc space narrowing, osteophytosis and facet arthrosis is unchanged. IMPRESSION: 1. No acute cervical spine fracture or subluxation. 2. Severe multilevel degenerative disc disease and facet arthrosis within the cervical spine. ACT 112: Negative or not required by law. Electronically signed by: Alan Chung M.D. 01/08/2021 9:51 AM Dictated: 01/08/21 0946
[2021-01-16] MEDS ORDERED: FUROSEMIDE 20 MG in SYRINGE 0 ML IV SCH (10:00)
--- NOTE | 2021-01-16 10:51 | History & Physical Bridge Note ---
Date of Service January 16, 2021 History & Physical Bridge Note I have examined the patient, reviewed the History & Physical and in the interval since the performance of the History & Physical I have noted the following changes of clinical significance: no changes noted
[2021-01-16] MEDS ORDERED: fentaNYL citrate 100 MCG/2 ML VIAL ONE (11:22)
[2021-01-16] MEDS ORDERED: LIDOCAINE HCL 2% 2 ML VIAL/AMP(20MG/ML) INFIL ONE (11:22)
[2021-01-16] MEDS ORDERED: SODIUM CHLORIDE 0.9% INJ 10 ML VIAL ONE ×2 (11:24→11:58)
[2021-01-16] MEDS ORDERED: LIDOCAINE HCL 1% 20 ML VIAL ONE (11:26)
[2021-01-16] MEDS ORDERED: BUPIVACAINE 0.5 % 5 MG/1 ML MPF 30ML VIAL ONE (11:26)
[2021-01-16] MEDS ORDERED: PROPOFOL IV EMULSION 10 MG/ML 20 ML VIAL IV ONE (11:57)
[2021-01-16] MEDS ORDERED: ePHEDrine sulfate 50 MG/ML AMP ONE (11:57)
[2021-01-16] MEDS ORDERED: PHENYLEPHRINE HCL 10 MG/ML VIAL ONE (11:58)
--- NOTE | 2021-01-16 12:14 | Operative Report ---
Post Operative Report Pre & Post Diagnosis Operation Date: 01/16/21 09:50 Pre-Op Diagnosis: Left leg hematoma Post-Op Diagnosis: Left leg hematoma I identified the patient and participated in the time-out.: Yes Procedure Operation Date: 01/16/21 09:50 Actual Procedures p Left Thigh Incision and Drainage of Hematoma with Wound Vac Placement(Left) - Pérez Blackmon MD Surgeon Pérez Blackmon MD Program Eligibility Specialist Joelle Hernandez. No resident or fellow available. Estimated Blood Loss 25 Findings Consistent with Post-Op Diagnosis Specimens None Drains Wound VAC Anesthesia Type General Complications none Disposition Accompanied Patient To Recovery: No Disposition: Recovery Room Indications Patient is 85. He has liver failure. He fell several days ago. He has a very large hematoma on the lateral aspect of his left thigh. We talked about treatment options risks and benefits and he elected to proceed with the surgical decompression. He does have an INR of 1.4. He has received vitamin K FFP packed red blood cells and TXA preoperatively. Description of Procedure Informed consent obtained. Patient identified. He identified the operative site as the left thigh. I marked with my initials. A preoperative surgical timeout was performed. A preop dose of IV antibiotics was given. He was taken to the operating room and positioned supine on the operating room table. The anesthetic was administered. There was a large hematoma on the lateral aspect of the thigh. There was an area about 5 cm in diameter posterior on the thigh where it look like a blister had formed and ruptured were. The dermis was exposed. The area was erythematous and indurated but there is no purulence or drainage. He had a chronic wound on the medial side of the ankle about 0.5 x 1 cm. There is lots of dried skin on the leg which was debrided. A prescrubbed with chlorhexidine then a Betadine scrub and paint were then performed. DVT prophylaxis with SCDs. Postoperatively mechanical devices. He was positioned slightly lateral with a bump under the torso. Bony prominences were inspected and padded and the left arm was folded across his chest and well padded. A 10 cm incision was made mid lateral thigh down through the skin. Bleeding controlled with electrocautery and bleeding was minimal. A large loculated hematoma was then evacuated and will basin estimated to measure 1000 cc. We then irrigated thoroughly and removed his the remaining hematoma. The wound was then packed and pressure was held for several minutes. Upon removing the packing no significant bleeding was noted. A wound VAC black sponge was then cut in half and inserted covering almost the entire wound. A small piece was i nserted distally. Loose approximation closure near far far near stitch with 2-0 nylon. Adaptic. The posterior wound was left open and out of the wound VAC dressing. The wound VAC was then applied and deployed with some minimal bloody drainage but otherwise functioning well. Optifoam was placed back onto the posterior thigh wound and the medial malleolus. Continue wound care consult for these. He was awakened from anesthesia without difficulty taken to recovery room in stable condition there were no specimens or complications. Counts were correct. Blood loss was 25 cc of blood but 1000 cc of hematoma. Contacted the family at the conclusion of the case. Plan is to return 3 times a week for wound VAC changes to a close down the area. This essentially encompassed the entire lateral thigh from the supracondylar region to the intratrochanteric region and went from about 10 to 12 cm anterior to posterior. This was subcutaneous and the fascia was not violated or exposed. No active bleeding was appreciated. I attest to the content of the Intraoperative Record and any orders documented therein. Any exceptions are noted below.
--- NOTE | 2021-01-16 12:19 | Operative Report ---
Post Operative Report Pre & Post Diagnosis Operation Date: 01/16/21 09:50 Pre-Op Diagnosis: Left leg hematoma Post-Op Diagnosis: Left leg hematoma I identified the patient and participated in the time-out.: Yes Procedure Operation Date: 01/16/21 09:50 Actual Procedures p Left Thigh Incision and Drainage of Hematoma with Wound Vac Placement(Left) - Pérez Blackmon MD Surgeon Pérez Blackmon M.D. Rejector Joelle Hernandez. No resident or fellow available. Estimated Blood Loss 25 Findings Consistent with Post-Op Diagnosis Specimens None Description of Procedure Patient was taken to the operating room, placed under general anesthesia. Time out performed, prepped and draped in routine sterile fashion. I was present du ring the entire case and assisted with tissue retraction, wound vac application and dressings. Please see Dr. Blackmon's operative report for further detail. I attest to the content of the Intraoperative Record and any orders documented therein. Any exceptions are noted below.
--- NOTE | 2021-01-16 13:04 | Anesthesiology Progress Note ---
Date of Service January 16, 2021 Anesthesia Post Procedure Vital Signs Vital Signs: Temp Pulse Pulse Pulse Resp BP BP 01/16/21 12:55 36.2 C L 70 21 107/65 01/16/21 12:45 36.5 C 60 15 124/68 01/16/21 12:35 60 19 120/83 01/16/21 12:27 36.1 C L 60 14 122/69 01/16/21 10:51 36.9 C 71 18 106/58 L 01/16/21 10:14 36.9 C 76 18 122/62 01/16/21 10:08 36.9 C 79 18 122/62 01/16/21 09:57 36.8 C 73 16 124/66 01/16/21 09:38 36.6 C 66 18 106/55 L 01/16/21 09:19 36.8 C 102 H 16 110/45 L 01/16/21 07:00 36.7 C 74 16 110/61 01/15/21 19:25 36.8 C 79 18 110/58 L 01/15/21 16:43 36.6 C 78 16 129/78 01/15/21 14:00 36.7 C 59 L 18 117/61 01/15/21 13:44 36.7 C 68 18 123/52 L Pulse Ox 01/16/21 12:55 100 01/16/21 12:45 100 01/16/21 12:35 100 01/16/21 12:27 93 01/16/21 10:51 92 01/16/21 10:14 93 01/16/21 10:08 93 01/16/21 09:57 92 01/16/21 09:38 92 01/16/21 09:19 95 01/16/21 07:00 93 01/15/21 19:25 93 01/15/21 16:43 93 01/15/21 14:00 92 01/15/21 13:44 95 Pain Intensity Left Thigh: Pain Intensity: 3 Left Leg: Pain Intensity: 3 Transfer of Care Handoff Completed per policy Notes Mental Status: alert / awake / arousable Patient Amnestic to Procedure: Yes Nausea / Vomiting: adequately controlled Pain: adequately controlled Airway Patency, RR, SpO2: stable & adequate BP & HR: stable & adequate Hydration State: stable & adequate Anesthetic Complications: no major complications apparent and Pt Satisfied with anesthetic care Notes: The patient received a second unit of FFP in the OR and was started on a unit of PRBC. He is awake and comfortable in PACU. His vital signs are stable.
[2021-01-16] MEDS ORDERED: MAGNESIUM HYDROXIDE SUSP 30 ML UDC PO PRN (13:18)
[2021-01-16] MEDS ORDERED: bisacodyL 10 MG SUPP PR PRN (13:18)
[2021-01-16] MEDS ORDERED: VANCOMYCIN CONSULT ACTIVE PRN (13:18)
[2021-01-16] MEDS ORDERED: NALOXONE HCL 0.4 MG/1 ML VIAL/CARP IV PRN (13:18)
[2021-01-16] MEDS: SPIRONOLACTONE 100 MG TAB PO SCH (13:33)
[2021-01-16] MEDS: FUROSEMIDE 40 MG TAB PO SCH (13:33)
[2021-01-16] MEDS: LACTULOSE SYRUP 20 GM/30 ML UDC PO SCH ×3 (13:33→19:55)
[2021-01-16] MEDS ORDERED: SODIUM CHLORIDE 0.9% 1000ML 1,000 ML IV SCH (13:36)
[2021-01-16] MEDS ORDERED: TRANEXAMIC ACID / 0.7% NACL 1,000 MG/100 ML BAG IV SCH ×2 (14:00→20:00)
[2021-01-16] MEDS ORDERED: Nursing to Pharmacy Communication SCH (14:15)
[2021-01-16] MEDS ORDERED: FUROSEMIDE 40 MG in SYRINGE 0 ML IV ONE (15:15)
[2021-01-16] MEDS: oxyCODONE HCL IR 5 MG TAB (IMMEDIATE RELEASE) PO PRN (16:44)
[2021-01-16] MEDS: ACETAMINOPHEN 325 MG TAB PO PRN (19:54)
[2021-01-17] MEDS: DOXYCYCLINE HYCLATE 100 MG in DEXTROSE 5% 100 ML IV SCH (05:06)
[2021-01-17 06:35] LABS: Hematocrit (blood only) 28.1 % (42-52); Hemoglobin 8.7 g/dL (14.0-18.0); Mean Corpuscular Hemoglobin 29.8 pg (25-34); Mean Corpuscular Volume 96.2 fL (80-100); Mean Platelet Volume 8.4 fL (7.4-10.4); Nucleated RBC # (auto) 0.02 K/uL (0-0); Nucleated RBC % (auto) 0.3 %; Platelet Count 256 K/uL (130-400); RDW Coefficient of Variation 17.2 % (11.5-14.5); RDW Standard Deviation 59.8 fL (36.4-46.3); Red Blood Count 2.92 M/uL (4.7-6.1); White Blood Count 5.66 K/uL (4.8-10.8)
[2021-01-17 06:50] LABS: INR 1.3 (0.9-1.1); Prothrombin Time 13.3 Seconds (9.0-12.0)
[2021-01-17 07:08] LABS: Albumin Level 2.5 gm/dl (3.4-5.0); BUN Creatinine Ratio 22.3 (10-20); Bilirubin Direct 1.4 mg/dl (0-0.2); Calcium 7.7 mg/dl (8.5-10.1); Creatinine Clr Calc Pharmacy 51.2 ml/min; Est GFR (African American) 73.6; Est GFR (Non-African American) 63.5
[2021-01-17 07:11] LABS: Bilirubin,Total 2.2 mg/dl (0.2-1); Total Protein 6.7 gm/dl (6.4-8.2)
[2021-01-17] MEDS: LACTULOSE SYRUP 20 GM/30 ML UDC PO SCH ×3 (08:39→20:35)
[2021-01-17] MEDS: FUROSEMIDE 40 MG in SYRINGE 0 ML IV SCH (08:39)
[2021-01-17] MEDS: SPIRONOLACTONE 100 MG TAB PO SCH (08:39)
[2021-01-17] MEDS: DOCUSATE SODIUM 100 MG CAP PO SCH ×2 (08:39→20:40)
--- NOTE | 2021-01-17 09:20 | Hospitalist Progress Note ---
Date of Service January 17, 2021 Assessment & Plan (1) Hematoma of left lower leg: Secondary to fall on rug at home. CT LEFT Femur on admission with hematoma measures approximately 30 x 11 x 7.5 cm Anemia secondary to hematoma * Iron studies with : * -->iron 27L, TIBC 312/ferritin 113 wnl, trans % sat low 10, transferrin low 193. * --> Will give dose of IV Venofer today over PO give hematoma and constipation * Repeat CBC in AM MRI with enlargement of hematoma on 01/14 to 31.7 x 12.5 x 7.[address] of January 08, 2021. Orthopedics consulted, Dr. Blackmon S/P I&D LEFT THIGH HEMATOMA 01/[address] Blackmon. EBL 25cc. * INR was 1.4 -- ordered 2 units FFP prior to surgery (given) and 10mg Vit K evening 01/15 * Per operative report, 1000cc large loculated hematoma evacuated and wound vac placed * D/c'd IVF as ordered by orthopedics given patient with active HF and requiring diuresis and tolerating diet without issue * Given 20mg IV lasix in addition to his 40mg PO morning of 01/16 morning and repeated another 40mg IV this afternoon for continued volume overload. * --> Switched to lasix 40mg IV daily * Zarate placed and will get more accurate I&O. * Record daily weights -- not done today but with less edema/wheezing 01/17 * Doing well. * H/h stable 8.7/28.1 and has gotten total of 3 units PRBC * Will need repeat I&D with wound vac changes on 01/18, 01/21, 01/23 planned * Will need repeat therapy evals to see about SNF given prior denial and was deemed at baseline. Given above, anticipate no issues with getting approval * Eating/drinking without issue * NPO after midnight * To get tranexamic acid before and after surgery tomorrow * FFP 2 units ordered and on hold * No further Vit K needed. INR 1.3 * Labs in AM (2) Anemia: * See above, secondary to #1 * Would place on PO iron once constipation resolved given iron low at 27, trans sat % 10L, transferrin 193L, TIBC wnl at 312 and ferritin 113 * Venofer x 1 on 01/15 * 2 units PRBC prior to surgery and 1 unit PRBC given with surgery on 01/16 * h/h stable at 8.7 but will give another dose of IV Venofer today * CBC in AM (3) Acute on chronic diastolic (congestive) heart failure: * due to RIGHT SIDED HEART FAILURE/CIRRHOSIS * -- secondary to medication non-compliance/cognitive decline. * Was on lasix 40mg QOD during admission but was on daily dose with 100mg spirinolactone * BNP 3798 on 01/14 * ECHO with evidence for volume overload with elevated RVSP * Weight 75.9kg on 01/14 (67.7kg basline "dry weight" but told PA at [facility]F clinic feels better around 160lb)-- unchanged essentially * D/c'd IVF as ordered by ortho in patient with active diastolic HF. Discussed and would not order further fluids unless appears volume depleted * Now with [facility] and will get more accurate I&O Will continue lasix 40mg IV for now Continue to monitor weights Creatinine stable Continue to monitor 92% on RA (4) Hepatic cirrhosis: * Unclear whether the patient is taking spironolactone or furosemide at the current time. * --> Lungs with wheezing and noted cough. * He noted he had been taking diuretics at discharge last admission "took until they were completed" implying that he had no refills and this was reason to not be continued on these medications * --> states he is confused and had been taking both of these medications daily * Restarted Lasix and spironolactone as above * Ammonia further elevated to 59 and was given lactulose with BM on 01/15 (first since 01/09 and likely contributing to confusion as well) * Placed on Lactulose 20mg and increased to TID --> increasing to 40mg TID 01/16 and ordered 4 doses of Rifaximin for hepatic encephalopathy although patient fairly oriented but short term memory/insight poor. Could give further rifaximin if increase unsuccessful at bringing down ammonia tomorrow * LFTs fluctuating but stable and improving * Declined hepatology work-up in past for cirrhosis ([facility] if needed) as patient DNR and focusing on comfort/quality * LFTs in AM (5) Chronic venous insufficiency: * Stasis changes to b/l LE however with edema/fall and hx afib will get Doppler to r/o DVT * Dopplers NEGATIVE for DVT * Vascular also consulted given plans for outpatient Venaseal to see about getting this done sooner/while inpatient? * --> Plans for outpatient intervention * Was to complete course of doxycycline --> did have dose left. 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 * Not on anticoagulation - unclear reason for this although contraindicated with current hematoma --> had issues in past with intraocular bleeding as well as hematuria last admission while on Lovenox * Venous Dopplers 01/14 NEGATIVE for DVT * Rate controlled on no medication (7) HTN (hypertension), benign: * Chronic. BP controlled 115/54 * On lasix/spironolactone as above * Previously on carvedilol, SATNAM in past -- unclear why this was discontinued (8) Obstructive sleep apnea syndrome: * Patient reports not on CPAP at home. * With R sided HF would benefit but patient continues to decline (9) Osteomyelitis of left ankle: * Chronic * No surgical intervention planned. * No antibiotics per [facility] infectious disease - just completed course of Doxycycline for 14 days per wound care (did not complete full course) for MSSA of wound in office * Repeat cx with pin-point growth, re-incubating --> follow * CRP elevated 6.7, ESR 70 (but could be from age?) --> IMPROVING ON REPEAT * no WBC/afebrile * Placed back on doxy on 01/14, switched to PO today * Continued wound care while inpatient Palliative consultation undertaken today given LACE score >=11 for goals of care Patient changed to DNR/DNI Dispo: continued inpatient stay as above through next week NPO after midnight for OR tomorrow Will need repeat therapy evals and look back into SNF/rehab at d/c Admission and Anticipated Discharge Date Admission Date: January 08, 2021 Supervising Physician Co-Signing Physician Notes PA Supervision Note: I did not personally see or examine the patient today, but I verified all dupree points of CHLOE Ballesteros's assessment and plan with the following exceptions/additions: none Subjective Patient evaluated this morning. Pain controlled. States he had a small bowel movement this morning. Overall feeling well. Eating/drinking without issues. Breathing improved. Continued diuresis. Wound vac to be changed tomorrow. No fever, chills, chest pain, shortness of breath, abdominal pain, dysuria reported. Questions/concerns addressed at this time. Review of Systems Review of Systems: All systems reviewed & are unremarkable except as noted in HPI & below Physical Exam Constitutional: well developed, + thin and + frail appearing; no acute distress Eyes: + anicteric sclerae and PERRL ENMT: Ears: no hearing impairment Neck: trachea midline, no thyromegaly Respiratory: normal respiratory effort and + cough (occassional); no respiratory distress, no labored breathing and not tachypneic Auscultation: + diminished lung sounds (bases) and + wheezes (faint end expiratory posterior lung garcia) Cardiovascular: Rate/Rhythm: + irregularly irregular Heart Sounds: normal S1 and normal S2; no murmur Vessels: + JVD Extremities: normal capillary refill, + calf tenderness (bilaterally), + pedal edema and + edema (trace b/l with erythema, decreased erythema. ruborous) Gastrointestinal (Abdomen): Inspection/Auscultation: + abdomen distended (less) and normal bowel sounds Percussion/Palpation: + ascites; abdomen nontender, no guarding and abdomen not rigid Musculoskeletal: no cyanosis or clubbing, extremities motor strength 5/5 Skin: + dry skin and + ecchymosis (left side of face) Trauma: + hematoma (decreased in size and now with wound vac draining serosanginous ) dressing to LEFT thigh c/d/i. surrounding erythema and induration wound vac with bloody/darkened drainage weakened pulses 1+ b/l, absent PT pulse NVI Neurologic: PERRL, EOMI, accommodation nl, no face palsy, no dysarthria moves all extremities and awake Psychiatric: Orientation: alert and oriented x 3 (at times intermittently co nfused) Insight: + poor insight Genitourinary: no CVA tenderness zarate draining yellow urine Lymphatic: no cervical or axillary lymphadenopathy Results & Data Results & Data ([facility]) Vital Signs (Past 12 Hours) Vital Signs Temp Pulse Pulse Resp BP BP Pulse Ox 01/17/21 07:49 37.1 C 74 16 108/55 L 91 01/17/21 03:39 37.4 C 75 20 104/44 L 90 01/16/21 22:30 36.7 C 73 19 106/56 L 97 Laboratory Results 01/17/21 01/17/21 01/17/21 Range/Units 05:48 05:45 05:45 WBC (4.8-10.8) K/uL RBC (4.7-6.1) M/uL Hgb (14.0-18.0) g/dL Hct (42-52) % MCV (80-100) fL MCH (25-34) pg MCHC (32-36) g/dL RDW Std Deviation (36.4-46.3) fL RDW Coeff of Chel (11.5-14.5) % Plt Count (130-400) K/uL MPV (7.4-10.4) fL Absolute Nucleated RBC (0-0) K/uL Nucleated RBC % (auto) % PT 13.3 H (9.0-12.0) Seconds INR 1.3 H (0.9-1.1) Sodium 137 (136-145) mmol/L Potassium 4.0 (3.5-5.1) mmol/L Chloride 101 (98-107) mmol/L Carbon Dioxide 32 (21-32) mmol/L Anion Gap 4.0 (3-11) BUN 23 H (7-18) mg/dl Creatinine 1.05 (0.6-1.4) mg/dl Est Cr Clr Drug Dosing 51.2 ml/min Est GFR ( Amer) 73.6 Est GFR (Non-Af Amer) 63.5 BUN/Creatinine Ratio 22.3 H (10-20) Glucose 117 H (70-99) mg/dl Calcium 7.7 L (8.5-10.1) mg/dl Total Bilirubin 2.2 H (0.2-1) mg/dl Direct Bilirubin 1.4 H (0-0.2) mg/dl AST 37 (15-37) U/L ALT 23 (12-78) U/L Alkaline Phosphatase 240 H (45-117) U/L Ammonia 58.0 H (11-32) umol/L Total Protein 6.7 (6.4-8.2) gm/dl Albumin 2.5 L (3.4-5.0) gm/dl Blood Type Antibody Screen Crossmatch 01/17/21 01/15/21 Range/Units 05:45 17:23 WBC 5.66 (4.8-10.8) K/uL RBC 2.92 L (4.7-6.1) M/uL Hgb 8.7 L (14.0-18.0) g/dL Hct 28.1 L (42-52) % MCV 96.2 (80-100) fL MCH 29.8 (25-34) pg MCHC 31.0 L (32-36) g/dL RDW Std Deviation 59.8 H (36.4-46.3) fL RDW Coeff of Chel 17.2 H (11.5-14.5) % Plt Count 256 (130-400) K/uL MPV 8.4 (7.4-10.4) fL Absolute Nucleated RBC 0.02 H (0-0) K/uL Nucleated RBC % (auto) 0.3 % PT (9.0-12.0) Seconds INR (0.9-1.1) Sodium (136-145) mmol/L Potassium (3.5-5.1) mmol/L Chloride (98-107) mmol/L Carbon Dioxide (21-32) mmol/L Anion Gap (3-11) BUN (7-18) mg/dl Creatinine (0.6-1.4) mg/dl Est Cr Clr Drug Dosing ml/min Est GFR ( Amer) Est GFR (Non-Af Amer) BUN/Creatinine Ratio (10-20) Glucose (70-99) mg/dl Calcium (8.5-10.1) mg/dl Total Bilirubin (0.2-1) mg/dl Direct Bilirubin (0-0.2) mg/dl AST (15-37) U/L ALT (12-78) U/L Alkaline Phosphatase (45-117) U/L Ammonia (11-32) umol/L Total Protein (6.4-8.2) gm/dl Albumin (3.4-5.0) gm/dl Blood Type O Positive Antibody Screen NEGATIVE Crossmatch See Detail PG Care Time/CCT Total # of Minutes Spent Total Time Spent with Patient: Total time spent is greater than 50% in coordination of care (as documented) at patient's floor/unit and/or counseling patient: Coding Level of Care Code 63825 Subseq Hosp Care Lvl 3 Diagnoses Hematoma of left lower leg S80.12XA Anemia D64.9 Acute on chronic diastolic (congestive) heart failure I50.33 Hepatic cirrhosis K74.60 Chronic venous insufficiency I87.2 Atrial fibrillation I48.20 Atrial fibrillation type: unspecified chronic HTN (hypertension), benign I10 Obstructive sleep apnea syndrome G47.33 Osteomyelitis of left ankle M86.9 (1) Atrial fibrillation Atrial fibrillation type: unspecified chronic Qualified Code(s): I48.20 - Chronic atrial fibrillation, unspecified
[2021-01-17] MEDS ORDERED: IRON SUCROSE 300 MG in SODIUM CHLORIDE 0.9% 250 ML IV ONE (12:00)
[2021-01-17] MEDS ORDERED: SODIUM CHLORIDE 0.9% 250 ML IV PRN (12:44)
--- NOTE | 2021-01-17 12:51 | Orthopedic Progress Note ---
Date of Service January 17, 2021 Assessment & Plan (1) Hematoma of left thigh: Continue wound vac. May be out of bed, weight bear as tolerated, use walker to assist with ambulation Ice PRN Plan for return to OR for wound vac change with Dr. Dill on 01/18/21. NPO shelley LATHAM. Patient seen and evaluated by Dr. Blackmon today. Admission and Anticipated Discharge Date Admission Date: January 08, 2021 Subjective Patient doing well, sitting up in bed, eating lunch. States improved pain, feels a lot better. Physical Exam Physical Exam: Left thigh wound vac in place, functioning. Able to actively SLR and flex left knee and full dorsi/plantar flexion left ankle. No distal edema. Results & Data ([facility]) Vital Signs (Past 12 Hours) Vital Signs Temp Pulse Resp BP BP Pulse Ox 01/17/21 11:30 37.0 C 74 16 115/54 L 92 01/17/21 07:49 37.1 C 74 16 108/55 L 91 01/17/21 03:39 37.4 C 75 20 104/44 L 90 Laboratory Results 01/17/21 01/17/21 01/17/21 Range/Units 05:48 05:45 05:45 WBC (4.8-10.8) K/uL RBC (4.7-6.1) M/uL Hgb (14.0-18.0) g/dL Hct (42-52) % MCV (80-100) fL MCH (25-34) pg MCHC (32-36) g/dL RDW Std Deviation (36.4-46.3) fL RDW Coeff of Chel (11.5-14.5) % Plt Count (130-400) K/uL MPV (7.4-10.4) fL Absolute Nucleated RBC (0-0) K/uL Nucleated RBC % (auto) % PT 13.3 H (9.0-12.0) Seconds INR 1.3 H (0.9-1.1) Sodium 137 (136-145) mmol/L Potassium 4.0 (3.5-5.1) mmol/L Chloride 101 (98-107) mmol/L Carbon Dioxide 32 (21-32) mmol/L Anion Gap 4.0 (3-11) BUN 23 H (7-18) mg/dl Creatinine 1.05 (0.6-1.4) mg/dl Est Cr Clr Drug Dosing 51.2 ml/min Est GFR ( Amer) 73.6 Est GFR (Non-Af Amer) 63.5 BUN/Creatinine Ratio 22.3 H (10-20) Glucose 117 H (70-99) mg/dl Calcium 7.7 L (8.5-10.1) mg/dl Total Bilirubin 2.2 H (0.2-1) mg/dl Direct Bilirubin 1.4 H (0-0.2) mg/dl AST 37 (15-37) U/L ALT 23 (12-78) U/L Alkaline Phosphatase 240 H (45-117) U/L Ammonia 58.0 H (11-32) umol/L Total Protein 6.7 (6.4-8.2) gm/dl Albumin 2.5 L (3.4-5.0) gm/dl Blood Type Antibody Screen Crossmatch 01/17/21 01/15/21 Range/Units 05:45 17:23 WBC 5.66 (4.8-10.8) K/uL RBC 2.92 L (4.7-6.1) M/uL Hgb 8.7 L (14.0-18.0) g/dL Hct 28.1 L (42-52) % MCV 96.2 (80-100) fL MCH 29.8 (25-34) pg MCHC 31.0 L (32-36) g/dL RDW Std Deviation 59.8 H (36.4-46.3) fL RDW Coeff of Chel 17.2 H (11.5-14.5) % Plt Count 256 (130-400) K/uL MPV 8.4 (7.4-10.4) fL Absolute Nucleated RBC 0.02 H (0-0) K/uL Nucleated RBC % (auto) 0.3 % PT (9.0-12.0) Seconds INR (0.9-1.1) Sodium (136-145) mmol/L Potassium (3.5-5.1) mmol/L Chloride (98-107) mmol/L Carbon Dioxide (21-32) mmol/L Anion Gap (3-11) BUN (7-18) mg/dl Creatinine (0.6-1.4) mg/dl Est Cr Clr Drug Dosing ml/min Est GFR ( Amer) Est GFR (Non-Af Amer) BUN/Creatinine Ratio (10-20) Glucose (70-99) mg/dl Calcium (8.5-10.1) mg/dl Total Bilirubin (0.2-1) mg/dl Direct Bilirubin (0-0.2) mg/dl AST (15-37) U/L ALT (12-78) U/L Alkaline Phosphatase (45-117) U/L Ammonia (11-32) umol/L Total Protein (6.4-8.2) gm/dl Albumin (3.4-5.0) gm/dl Blood Type O Positive Antibody Screen NEGATIVE Crossmatch See Detail (1) Hematoma of left thigh Encounter type: initial encounter Qualified Code(s): S70.12XA - Contusion of left thigh, initial encounter
--- NOTE | 2021-01-17 16:03 | Anesthesiology Consultation ---
Date of Service January 17, 2021 Assessment & Plan (1) Encounter for pre-operative examination: Chart Review Chart Review: Acceptable Risk for Surgery and Patient NOT seen in Pre Admission Testing S/P I&D LEFT THIGH HEMATOMA 01/[address] Blackmon. EBL 25cc. INR was 1.4 -- ordered 2 units FFP prior to surgery (given) and 10mg Vit K evening 01/15 Per operative report, 1000cc large loculated hematoma evacuated and wound vac placed D/c'd IVF as ordered by orthopedics given patient with active HF and requiring diuresis and tolerating diet without issue Given 20mg IV lasix in addition to his 40mg PO morning of 01/16 morning and repeated another 40mg IV this afternoon for continued volume overload. --> Switched to lasix 40mg IV daily [place] placed and will get more accurate I&O 01/17 hospitalist update: Doing well. H/h stable 8.7/28.1 and has gotten total of 3 units PRBC Will need repeat I&D with wound vac changes on 01/18, 01/21, 01/23 planned Consults Requested none History Surgery Operation Date: 01/16/21 09:50 Proposed Procedures p Left Thigh Incision and Drainage of Hematoma with Wound Vac Placement - Pérez Blackmon MD Operation Date: 01/18/21 13:20 Proposed Procedures p Left Incision and Drainage Thigh with wound Vac Change - Baltazar Dill MD Operation Date: 01/21/21 07:00 Proposed Procedures p Incision and Drainage Left Thigh with Wound Vac Change - Baltazar Dill MD Operation Date: 01/23/21 07:00 Proposed Procedures p Incision and Drainage thigh Left with Wound Vac Change - Pérez Blackmon MD Height/Weight Height: 5 ft 10 in Weight: 73.8 kg Allergies Allergy/AdvReac Type Severity Reaction Status Date / Time merbromin Allergy Intermediate ALLERGIC Verified 01/08/21 09:06 TO MERCUROCHROME, RASH mercury (elemental) AdvReac Intermediate Rash Verified 01/08/21 09:06 sulfamethoxazole AdvReac Intermediate GI UPSET, Verified 01/08/21 09:06 FEVER, HEADACHE trimethoprim AdvReac Intermediate GI UPSET, Verified 01/08/21 09:06 FEVER, HEADACHE ciprofloxacin AdvReac Mild GI SYMPTOMS Verified 01/08/21 09:06 Medications Home Medications Medication Instructions Recorded Confirmed Last Taken No Known Home Medications 01/08/21 01/08/21 Unknown Active Medications Generic Name Dose Route Start Last Admin Trade Name Freq PRN Reason Stop Dose Admin Acetaminophen 650 mg 01/08/21 13:27 01/16/21 19:54 Acetaminophen 325 Mg Tab PO 02/07/21 13:26 650 mg Q4H PRN Administration pain/fever Docusate Sodium 100 mg 01/14/21 09:45 01/17/21 08:39 Docusate Sodium 100 Mg Cap PO 02/13/21 09:44 100 mg BID TONY Administration Furosemide 40 mg 01/15/21 09:00 01/16/21 13:33 Furosemide 40 Mg Tab PO 02/14/21 08:59 40 mg QAM TONY Administration Furosemide 40 mg/ Syringe 4 mls @ 4 mls/min 01/17/21 09:00 01/17/21 08:39 IV 02/16/21 08:59 4 mls/min QAM TONY Administration Lactulose 40 gm 01/16/21 21:00 01/17/21 14:52 Lactulose Syrup 20 Gm/30 Ml Udc PO 02/15/21 20:59 40 gm TID TONY Administration Oxycodone HCl 5 mg 01/08/21 13:27 01/16/21 16:44 Oxycodone Hcl Ir 5 Mg Tab (Immediate Release) PO 01/22/21 13:26 5 mg Q4H PRN Administration Pain Polyethylene Glycol 17 gm 01/12/21 01:03 01/14/21 08:56 Polyethylene (Miralax) 17 Gm Pack PO 02/11/21 01:02 17 gm BID PRN Administration Constipation Spironolactone 100 mg 01/15/21 09:00 01/17/21 08:39 Spironolactone 100 Mg Tab PO 02/14/21 08:59 100 mg QAM TONY Administration NPO Date Last Intake of Fluids: 01/15/21 Time Last Intake of Fluids: 23:55 Date Last Intake of Solids: 01/15/21 Time Last Intake of Solids: 23:55 Past Medical History Medical History Actinic keratosis Anemia Aortic aneurysm Aortic stenosis, mild Arrhythmia HX Atrial fibrillation Bifascicular bundle branch block BPH (benign prostatic hyperplasia) Bronchitis 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 Chronic cough Chronic obstructive pulmonary disease Duodenal ulcer HX Dyspnea Enlarged prostate with lower urinary tract symptoms (LUTS) History of duodenal ulcer History of edema History of gross hematuria History of hepatitis History of retinal hemorrhage Hypertension Hypoxia Laceration of scalp with delay in treatment Left knee DJD Left shoulder pain Liver cirrhosis Macular degeneration Pneumonia ON ANTIBIOTICS CURRENTLY X 5 DAYS THRU PCP Positive JESSICA (antinuclear antibody) Pulmonary hypertension Retinal hemorrhage Right-sided heart failure Sleep apnea Traumatic hematoma of left upper arm Traumatic open wound of right lower leg with delayed healing Upper respiratory infection 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 Mother , Age 34 No problems noted. Denies family history of Colon cancer Ovarian cancer Prostate cancer Myocardial infarction Breast cancer Past Surgical History Surgical History History of cardiac radiofrequency ablation S/P History of colonoscopy History of esophagogastroduodenoscopy (EGD) History of gastrostomy History of total knee replacement R/L Hx of transurethral resection of prostate Social History Smoking Status: Former smoker tobacco type: pipe Hx Alcohol Use: Yes Alcohol type: wine alcohol intake frequency: a few times a week Alcohol Intake Frequency Comment: sometimes with dinner Hx Substance Use: No substance use type: does not use Physical Exam Vital Signs Last Vital Signs Temp 36.6 C 01/17/21 15:31 Pulse 71 01/17/21 15:31 Resp 16 01/17/21 15:31 BP 99/54 L 01/17/21 15:31 Pulse Ox 92 01/17/21 15:31 Testing Laboratory Results 01/17/21 05:45 01/17/21 05:45 PT 13.3 Seconds (9.0-12.0) H 01/17/21 05:45 INR 1.3 (0.9-1.1) H 01/17/21 05:45 APTT 48.7 Seconds (21.0-31.0) H* 01/08/21 08:42 Urine Color Dark Yellow 01/08/21 08:51 Urine Appearance Clear (Clear) 01/08/21 08:51 Urine pH 6.0 (4.5-7.5) 01/08/21 08:51 Ur Specific [place] 1.020 (1.000-1.030) 01/08/21 08:51 Urine Protein Trace (Negative) H 01/08/21 08:51 Urine Glucose (UA) Negative (Negative) 01/08/21 08:51 Urine Ketones Negative (Negative) 01/08/21 08:51 Urine Nitrite Negative (Negative) 01/08/21 08:51 Ur Leukocyte Esterase 1+ (Negative) H 01/08/21 08:51 Urine WBC (Auto) 5-10 /hpf (0-5) H 01/08/21 08:51 Urine RBC (Auto) 0-4 /hpf (0-4) 01/08/21 08:51 U Hyaline Cast (Auto) 1-5 /lpf (0-5) 01/08/21 08:51 U Epithel Cells (Auto) 10-20 /lpf (0-5) H 01/08/21 08:51 Urine Bacteria (Auto) Negative (Negative) 01/08/21 08:51 Blood Type O Positive 01/15/21 17:23 Antibody Screen NEGATIVE 01/15/21 17:23 01/14/21 15:51 Gram Stain - Final Ankle Wound Culture - Final Corynebacterium species 01/08/21 08:42 Aerobic Blood Culture - Final Blood No growth in Aerobic bottle after 5 days. Anaerobic Blood Culture - Final No growth in Anaerobic bottle after 5 days. 01/08/21 08:31 Aerobic Blood Culture - Final Blood No growth in Aerobic bottle after 5 days. Anaerobic Blood Culture - Final No growth in Anaerobic bottle after 5 days. Electrocardiogram Date: 01/08/21 Findings: + RBBB Afib with PVCs, rate 78 Chest X-Ray Date: 01/08/21 XR chest 1V not portable CLINICAL HISTORY: weakness COMPARISON STUDY: Chest CT November 29, 2020. FINDINGS: There is no pneumothorax or pleural effusion. Cardiomegaly is unchanged. Pulmonary vascular congestion without overt pulmonary edema. Skinfold project over each hemithorax. IMPRESSION: 1. No pneumothorax. 2. Cardiomegaly with pulmonary vascular congestion, similar to prior exam. ACT 112: Negative or not required by law. Electronically signed by: Alan Chung M.D. 01/08/2021 11:07 AM Dictated: 01/08/21 [id number]: 01/08/21 1106 Echocardiogram Date: 01/14/21 EF: 50-55 Other Findings: + atrial enlargement (biatrial) and + RVH (mild to moderate dilation) RVSP 40-50 mmHg, RV septal flattening Cervical Spine Date: 01/08/21 CT OF THE CERVICAL SPINE WITHOUT CONTRAST CLINICAL HISTORY: Neck pain following fall. COMPARISON STUDY: Cervical spine CT November 07, 2019. TECHNIQUE: Helical axial images of the cervical spine were obtained without IV contrast. Sagittal and coronal reconstructions were viewed. Automated exposure control was utilized for the study. A dose lowering technique was utilized adhering to the principles of ALARA. FINDINGS: Reversal of the normal cervical lordosis is again noted. Vertebral body heights are maintained. No acute cervical spine fracture or subluxation is present. There is no prevertebral edema. Facet joints are intact. Severe multilevel disc space narrowing, osteophytosis and facet arthrosis is unchanged. IMPRESSION: 1. No acute cervical spine fracture or subluxation. 2. Severe multilevel degenerative disc disease and facet arthrosis within the cervical spine. ACT 112: Negative or not required by law. Electronically signed by: Alan Chung M.D. 01/08/2021 9:51 AM Dictated: 01/08/21 [id number]
[2021-01-17] MEDS: DOXYCYCLINE HYCLATE 100 MG CAP PO SCH (20:36)
[2021-01-18] MEDS: traMADol HCL 50 MG TABLET PO PRN (01:08)
[2021-01-18] MEDS ORDERED: TRANEXAMIC ACID / 0.7% NACL 1,000 MG/100 ML BAG IV SCH ×2 (06:00→12:45)
[2021-01-18 07:50] LABS: Hematocrit (blood only) 27.6 % (42-52); Hemoglobin 8.8 g/dL (14.0-18.0); Mean Corpuscular Hemoglobin 30.6 pg (25-34); Mean Corpuscular Hgb Conc 31.9 g/dL (32-36); Mean Corpuscular Volume 95.8 fL (80-100); Mean Platelet Volume 8.4 fL (7.4-10.4); Platelet Count 264 K/uL (130-400); RDW Coefficient of Variation 17.5 % (11.5-14.5); RDW Standard Deviation 59.8 fL (36.4-46.3); Red Blood Count 2.88 M/uL (4.7-6.1); White Blood Count 7.28 K/uL (4.8-10.8)
[2021-01-18 08:01] LABS: INR 1.4 (0.9-1.1); Prothrombin Time 13.5 Seconds (9.0-12.0)
[2021-01-18 08:25] LABS: Albumin Level 2.5 gm/dl (3.4-5.0); BUN Creatinine Ratio 22.4 (10-20); Bilirubin Direct 1.1 mg/dl (0-0.2); Calcium 8.3 mg/dl (8.5-10.1); Creatinine Clr Calc Pharmacy 54.8 ml/min; Potassium 3.9 mmol/L (3.5-5.1)
[2021-01-18] MEDS: DOXYCYCLINE HYCLATE 100 MG CAP PO SCH ×2 (08:27→20:48)
[2021-01-18] MEDS: SPIRONOLACTONE 100 MG TAB PO SCH (08:27)
[2021-01-18 08:28] LABS: Bilirubin,Total 2.1 mg/dl (0.2-1); Total Protein 6.5 gm/dl (6.4-8.2)
[2021-01-18] MEDS: FUROSEMIDE 40 MG in SYRINGE 0 ML IV SCH (08:28)
[2021-01-18] MEDS ORDERED: LACTULOSE SYRUP 20 GM/30 ML UDC PO SCH (09:00)
--- NOTE | 2021-01-18 10:11 | Orthopedic Progress Note ---
Date of Service January 18, 2021 Assessment & Plan (1) Hematoma of left thigh: May be out of bed, weight bear as tolerated, use walker to assist with ambulation Ice PRN Plan for return to OR for wound vac change with Dr. Dill on 01/18/21. Patient has been NPO since midnight. I, Dr. Dill, saw and examined the patient and agree with the above findings and plan of care. The informed consent was signed. Admission and Anticipated Discharge Date Admission Date: January 08, 2021 Subjective This 85-year-old male seen today on the third floor. He is currently resting in bed comfortably. He states his wound VAC does not seem to be draining that much fluid. Upon examination of the wound VAC machine there was approximately 15 cc of clear blood-tinged fluid. Currently patient denies chest pain, shortness of breath, fever, chills, sweats, lethargy, but does state that he has some pain over the lateral aspect of the left thigh. Review of Systems Review of Systems: All systems reviewed & are unremarkable except as noted in Subjective Physical Exam Physical Exam: Left thigh: Wound VAC application site is clean dry and intact with no drainage. Patient does have some edema and ecchymosis circumferentially around the VAC site with tenderness to palpation. He is able to actively dorsi and plantarflex his foot without difficulty. He can perform a straight leg raise test and flex his knee to 90 degrees. He is neurovascularly intact in the left lower extremity. Results & Data ([facility]) Vital Signs (Past 12 Hours) Vital Signs Temp Pulse Pulse Resp BP BP Pulse Ox 01/18/21 08:13 36.9 C 69 18 103/54 L 90 01/18/21 04:00 36.9 C 77 18 107/50 L 90 01/17/21 22:51 36.9 C 68 18 103/49 L 90 Laboratory Results Lab Results 01/08/21 01/08/21 01/08/21 Range/Units 08:42 08:42 08:42 WBC (4.8-10.8) K/uL RBC (4.7-6.1) M/uL Hgb (14.0-18.0) g/dL Hct (42-52) % MCV (80-100) fL MCH (25-34) pg MCHC (32-36) g/dL RDW Std Deviation (36.4-46.3) fL RDW Coeff of Chel (11.5-14.5) % Plt Count (130-400) K/uL MPV (7.4-10.4) fL Immature Gran % (Auto) % Neut % (Auto) % Lymph % (Auto) % [place] % (Auto) % Eos % (Auto) % Baso % (Auto) % Neut # (Auto) (1.4-6.5) K/uL Lymph # (Auto) (1.2-3.4) K/uL [place] # (Auto) (0.11-0.59) K/uL Eos # (Auto) (0-0.5) K/uL Baso # (Auto) (0-0.2) K/uL Immature Gran # (Auto) (0.00-0.02) K/uL Absolute Nucleated RBC (0-0) K/uL Nucleated RBC % (auto) % Anisocytosis ESR (0-20) mm/hr PT 13.5 H (9.0-12.0) Seconds INR 1.4 H (0.9-1.1) APTT 48.7 H* (21.0-31.0) Seconds PTT Ratio 1.9 Sodium 133 L (136-145) mmol/L Potassium 4.0 (3.5-5.1) mmol/L Chloride 99 (98-107) mmol/L Carbon Dioxide 27 (21-32) mmol/L Anion Gap 7.0 (3-11) BUN 28 H (7-18) mg/dl Creatinine 1.19 (0.6-1.4) mg/dl Est Cr Clr Drug Dosing 45.2 ml/min Est GFR ( Amer) 63.3 Est GFR (Non-Af Amer) 54.6 BUN/Creatinine Ratio 23.7 H (10-20) Glucose 91 (70-99) mg/dl Lactate 2.5 H* (0.4-2.0) mmol/L Calcium 8.7 (8.5-10.1) mg/dl Magnesium 2.5 H (1.8-2.4) mg/dl Iron (35-175) mcg/dl TIBC (250-450) mcg/dl Transferrin (200-360) mg/dl Transferrin % Sat (20-50) % Ferritin (8-388) ng/ml Total Bilirubin 3.3 H (0.2-1) mg/dl Direct Bilirubin (0-0.2) mg/dl AST 36 (15-37) U/L ALT 23 (12-78) U/L Alkaline Phosphatase 216 H (45-117) U/L Ammonia (11-32) umol/L Troponin I 0.020 (0-0.045) ng/ml C-Reactive Protein (0-0.29) mg/dl NT-Pro-B Natriuret Pep (0-1800) pg/ml Total Protein 7.4 (6.4-8.2) gm/dl Albumin 3.2 L (3.4-5.0) gm/dl Globulin 4.2 H (2.5-4.0) gm/dl Albumin/Globulin Ratio 0.8 L (0.9-2) Procalcitonin (0-0.5) ng/ml TSH 4.990 H (0.300-4.500) uIu/ml Free T4 0.95 (0.8-1.6) ng/dl Urine Color Urine Appearance (Clear) Urine pH (4.5-7.5) Ur Specific [place] (1.000-1.030) Urine Protein (Negative) Urine Glucose (UA) (Negative) Urine Ketones (Negative) Urine Blood (Negative) Urine Nitrite (Negative) Urine Bilirubin (Negative) Urine Urobilinogen (Negative) Ur Leukocyte Esterase (Negative) Urine WBC (Auto) (0-5) /hpf Urine RBC (Auto) (0-4) /hpf U Hyaline Cast (Auto) (0-5) /lpf U Epithel Cells (Auto) (0-5) /lpf Urine Bacteria (Auto) (Negative) COVID-19 Eval Order SARS-CoV-2 (PCR) (Negative) Influenza Type A (PCR) (Neg) Influenza Type B (PCR) (Neg) RSV (RT-PCR) (Neg) Blood Type Antibody Screen Crossmatch 01/08/21 01/08/21 01/08/21 Range/Units 08:42 08:47 08:51 WBC 6.06 (4.8-10.8) K/uL RBC 2.34 L (4.7-6.1) M/uL Hgb 7.0 L (14.0-18.0) g/dL Hct 21.6 L (42-52) % MCV 92.3 (80-100) fL MCH 29.9 (25-34) pg MCHC 32.4 (32-36) g/dL RDW Std Deviation 52.9 H (36.4-46.3) fL RDW Coeff of Chel 16.3 H (11.5-14.5) % Plt Count 205 (130-400) K/uL MPV 8.5 (7.4-10.4) fL Immature Gran % (Auto) 0.2 % Neut % (Auto) 66.5 % Lymph % (Auto) 16.8 % [place] % (Auto) 13.0 % Eos % (Auto) 2.8 % Baso % (Auto) 0.7 % Neut # (Auto) 4.03 (1.4-6.5) K/uL Lymph # (Auto) 1.02 L (1.2-3.4) K/uL [place] # (Auto) 0.79 H (0.11-0.59) K/uL Eos # (Auto) 0.17 (0-0.5) K/uL Baso # (Auto) 0.04 (0-0.2) K/uL Immature Gran # (Auto) 0.01 (0.00-0.02) K/uL Absolute Nucleated RBC (0-0) K/uL Nucleated RBC % (auto) % Anisocytosis Present ESR (0-20) mm/hr PT (9.0-12.0) Seconds INR (0.9-1.1) APTT (21.0-31.0) Seconds PTT Ratio Sodium (136-145) mmol/L Potassium (3.5-5.1) mmol/L Chloride (98-107) mmol/L Carbon Dioxide (21-32) mmol/L Anion Gap (3-11) BUN (7-18) mg/dl Creatinine (0.6-1.4) mg/dl Est Cr Clr Drug Dosing ml/min Est GFR ( Amer) Est GFR (Non-Af Amer) BUN/Creatinine Ratio (10-20) Glucose (70-99) mg/dl Lactate (0.4-2.0) mmol/L Calcium (8.5-10.1) mg/dl Magnesium (1.8-2.4) mg/dl Iron (35-175) mcg/dl TIBC (250-450) mcg/dl Transferrin (200-360) mg/dl Transferrin % Sat (20-50) % Ferritin (8-388) ng/ml Total Bilirubin (0.2-1) mg/dl Direct Bilirubin (0-0.2) mg/dl AST (15-37) U/L ALT (12-78) U/L Alkaline Phosphatase (45-117) U/L Ammonia (11-32) umol/L Troponin I (0-0.045) ng/ml C-Reactive Protein (0-0.29) mg/dl NT-Pro-B Natriuret Pep (0-1800) pg/ml Total Protein (6.4-8.2) gm/dl Albumin (3.4-5.0) gm/dl Globulin (2.5-4.0) gm/dl Albumin/Globulin Ratio (0.9-2) Procalcitonin (0-0.5) ng/ml TSH (0.300-4.500) uIu/ml Free T4 (0.8-1.6) ng/dl Urine Color Dark Yellow Urine Appearance Clear (Clear) Urine pH 6.0 (4.5-7.5) Ur Specific [place] 1.020 (1.000-1.030) Urine Protein Trace H (Negative) Urine Glucose (UA) Negative (Negative) Urine Ketones Negative (Negative) Urine Blood Negative (Negative) Urine Nitrite Negative (Negative) Urine Bilirubin Negative (Negative) Urine Urobilinogen Negative (Negative) Ur Leukocyte Esterase 1+ H (Negative) Urine WBC (Auto) 5-10 H (0-5) /hpf Urine RBC (Auto) 0-4 (0-4) /hpf U Hyaline Cast (Auto) 1-5 (0-5) /lpf U Epithel Cells (Auto) 10-20 H (0-5) /lpf Urine Bacteria (Auto) Negative (Negative) COVID-19 Eval Order SARS-CoV-2 (PCR) (Negative) Influenza Type A (PCR) (Neg) Influenza Type B (PCR) (Neg) RSV (RT-PCR) (Neg) Blood Type O Positive Antibody Screen NEGATIVE Crossmatch See Detail 01/08/21 01/08/21 01/08/21 Range/Units 09:10 09:10 19:09 WBC (4.8-10.8) K/uL RBC (4.7-6.1) M/uL Hgb 6.8 L* (14.0-18.0) g/dL Hct 20.7 L* (42-52) % MCV (80-100) fL MCH (25-34) pg MCHC (32-36) g/dL RDW Std Deviation (36.4-46.3) fL RDW Coeff of Chel (11.5-14.5) % Plt Count (130-400) K/uL MPV (7.4-10.4) fL Immature Gran % (Auto) % Neut % (Auto) % Lymph % (Auto) % [place] % (Auto) % Eos % (Auto) % Baso % (Auto) % Neut # (Auto) (1.4-6.5) K/uL Lymph # (Auto) (1.2-3.4) K/uL [place] # (Auto) (0.11-0.59) K/uL Eos # (Auto) (0-0.5) K/uL Baso # (Auto) (0-0.2) K/uL Immature Gran # (Auto) (0.00-0.02) K/uL Absolute Nucleated RBC (0-0) K/uL Nucleated RBC % (auto) % Anisocytosis ESR (0-20) mm/hr PT (9.0-12.0) Seconds INR (0.9-1.1) APTT (21.0-31.0) Seconds PTT Ratio Sodium (136-145) mmol/L Potassium (3.5-5.1) mmol/L Chloride (98-107) mmol/L Carbon Dioxide (21-32) mmol/L Anion Gap (3-11) BUN (7-18) mg/dl Creatinine (0.6-1.4) mg/dl Est Cr Clr Drug Dosing ml/min Est GFR ( Amer) Est GFR (Non-Af Amer) BUN/Creatinine Ratio (10-20) Glucose (70-99) mg/dl Lactate (0.4-2.0) mmol/L Calcium (8.5-10.1) mg/dl Magnesium (1.8-2.4) mg/dl Iron (35-175) mcg/dl TIBC (250-450) mcg/dl Transferrin (200-360) mg/dl Transferrin % Sat (20-50) % Ferritin (8-388) ng/ml Total Bilirubin (0.2-1) mg/dl Direct Bilirubin (0-0.2) mg/dl AST (15-37) U/L ALT (12-78) U/L Alkaline Phosphatase (45-117) U/L Ammonia (11-32) umol/L Troponin I (0-0.045) ng/ml C-Reactive Protein (0-0.29) mg/dl NT-Pro-B Natriuret Pep (0-1800) pg/ml Total Protein (6.4-8.2) gm/dl Albumin (3.4-5.0) gm/dl Globulin (2.5-4.0) gm/dl Albumin/Globulin Ratio (0.9-2) Procalcitonin (0-0.5) ng/ml TSH (0.300-4.500) uIu/ml Free T4 (0.8-1.6) ng/dl Urine Color Urine Appearance (Clear) Urine pH (4.5-7.5) Ur Specific [place] (1.000-1.030) Urine Protein (Negative) Urine Glucose (UA) (Negative) Urine Ketones (Negative) Urine Blood (Negative) Urine Nitrite (Negative) Urine Bilirubin (Negative) Urine Urobilinogen (Negative) Ur Leukocyte Esterase (Negative) Urine WBC (Auto) (0-5) /hpf Urine RBC (Auto) (0-4) /hpf U Hyaline Cast (Auto) (0-5) /lpf U Epithel Cells (Auto) (0-5) /lpf Urine Bacteria (Auto) (Negative) COVID-19 Eval Order [facility]Rsv at [facility] SARS-CoV-2 (PCR) NEGATIVE (Negative) Influenza Type A (PCR) Negative (Neg) Influenza Type B (PCR) Negative (Neg) RSV (RT-PCR) Negative (Neg) Blood Type Antibody Screen Crossmatch 01/09/21 01/09/21 01/09/21 Range/Units 06:13 06:13 06:13 WBC 7.41 (4.8-10.8) K/uL RBC 2.37 L (4.7-6.1) M/uL Hgb 7.2 L (14.0-18.0) g/dL Hct 21.6 L (42-52) % MCV 91.1 (80-100) fL MCH 30.4 (25-34) pg MCHC 33.3 (32-36) g/dL RDW Std Deviation 52.7 H (36.4-46.3) fL RDW Coeff of Chel 16.4 H (11.5-14.5) % Plt Count 227 (130-400) K/uL MPV 8.9 (7.4-10.4) fL Immature Gran % (Auto) 0.1 % Neut % (Auto) 66.7 % Lymph % (Auto) 17.3 % [place] % (Auto) 13.0 % Eos % (Auto) 2.2 % Baso % (Auto) 0.7 % Neut # (Auto) 4.95 (1.4-6.5) K/uL Lymph # (Auto) 1.28 (1.2-3.4) K/uL [place] # (Auto) 0.96 H (0.11-0.59) K/uL Eos # (Auto) 0.16 (0-0.5) K/uL Baso # (Auto) 0.05 (0-0.2) K/uL Immature Gran # (Auto) 0.01 (0.00-0.02) K/uL Absolute Nucleated RBC (0-0) K/uL Nucleated RBC % (auto) % Anisocytosis ESR (0-20) mm/hr PT 14.6 H (9.0-12.0) Seconds INR 1.5 H (0.9-1.1) APTT (21.0-31.0) Seconds PTT Ratio Sodium 133 L (136-145) mmol/L Potassium 4.6 (3.5-5.1) mmol/L Chloride 100 (98-107) mmol/L Carbon Dioxide 28 (21-32) mmol/L Anion Gap 5.0 (3-11) BUN 30 H (7-18) mg/dl Creatinine 1.21 (0.6-1.4) mg/dl Est Cr Clr Drug Dosing 44.4 ml/min Est GFR ( Amer) 62.0 Est GFR (Non-Af Amer) 53.5 BUN/Creatinine Ratio 24.5 H (10-20) Glucose 89 (70-99) mg/dl Lactate (0.4-2.0) mmol/L Calcium 7.9 L (8.5-10.1) mg/dl Magnesium (1.8-2.4) mg/dl Iron (35-175) mcg/dl TIBC (250-450) mcg/dl Transferrin (200-360) mg/dl Transferrin % Sat (20-50) % Ferritin (8-388) ng/ml Total Bilirubin 4.0 H (0.2-1) mg/dl Direct Bilirubin (0-0.2) mg/dl AST 34 (15-37) U/L ALT 22 (12-78) U/L Alkaline Phosphatase 198 H (45-117) U/L Ammonia (11-32) umol/L Troponin I (0-0.045) ng/ml C-Reactive Protein (0-0.29) mg/dl NT-Pro-B Natriuret Pep (0-1800) pg/ml Total Protein 7.0 (6.4-8.2) gm/dl Albumin 2.7 L (3.4-5.0) gm/dl Globulin 4.3 H (2.5-4.0) gm/dl Albumin/Globulin Ratio 0.6 L (0.9-2) Procalcitonin (0-0.5) ng/ml TSH (0.300-4.500) uIu/ml Free T4 (0.8-1.6) ng/dl Urine Color Urine Appearance (Clear) Urine pH (4.5-7.5) Ur Specific [place] (1.000-1.030) Urine Protein (Negative) Urine Glucose (UA) (Negative) Urine Ketones (Negative) Urine Blood (Negative) Urine Nitrite (Negative) Urine Bilirubin (Negative) Urine Urobilinogen (Negative) Ur Leukocyte Esterase (Negative) Urine WBC (Auto) (0-5) /hpf Urine RBC (Auto) (0-4) /hpf U Hyaline Cast (Auto) (0-5) /lpf U Epithel Cells (Auto) (0-5) /lpf Urine Bacteria (Auto) (Negative) COVID-19 Eval Order SARS-CoV-2 (PCR) (Negative) Influenza Type A (PCR) (Neg) Influenza Type B (PCR) (Neg) RSV (RT-PCR) (Neg) Blood Type Antibody Screen Crossmatch 01/10/21 01/10/21 01/11/21 Range/Units 08:37 08:37 05:20 WBC 7.24 6.42 (4.8-10.8) K/uL RBC 2.79 L 2.66 L (4.7-6.1) M/uL Hgb 8.3 L 8.1 L (14.0-18.0) g/dL Hct 25.5 L 24.7 L (42-52) % MCV 91.4 92.9 (80-100) fL MCH 29.7 30.5 (25-34) pg MCHC 32.5 32.8 (32-36) g/dL RDW Std Deviation 54.2 H 55.3 H (36.4-46.3) fL RDW Coeff of Chel 16.5 H 16.7 H (11.5-14.5) % Plt Count 244 240 (130-400) K/uL MPV 8.8 8.4 (7.4-10.4) fL Immature Gran % (Auto) % Neut % (Auto) % Lymph % (Auto) % [place] % (Auto) % Eos % (Auto) % Baso % (Auto) % Neut # (Auto) (1.4-6.5) K/uL Lymph # (Auto) (1.2-3.4) K/uL [place] # (Auto) (0.11-0.59) K/uL Eos # (Auto) (0-0.5) K/uL Baso # (Auto) (0-0.2) K/uL Immature Gran # (Auto) (0.00-0.02) K/uL Absolute Nucleated RBC (0-0) K/uL Nucleated RBC % (auto) % Anisocytosis ESR (0-20) mm/hr PT (9.0-12.0) Seconds INR (0.9-1.1) APTT (21.0-31.0) Seconds PTT Ratio Sodium 133 L (136-145) mmol/L Potassium 3.9 D (3.5-5.1) mmol/L Chloride 100 (98-107) mmol/L Carbon Dioxide 28 (21-32) mmol/L Anion Gap 5.0 (3-11) BUN 28 H (7-18) mg/dl Creatinine 1.04 (0.6-1.4) mg/dl Est Cr Clr Drug Dosing 51.7 ml/min Est GFR ( Amer) 74.5 Est GFR (Non-Af Amer) 64.3 BUN/Creatinine Ratio 27.1 H (10-20) Glucose 104 H (70-99) mg/dl Lactate (0.4-2.0) mmol/L Calcium 8.0 L (8.5-10.1) mg/dl Magnesium (1.8-2.4) mg/dl Iron (35-175) mcg/dl TIBC (250-450) mcg/dl Transferrin (200-360) mg/dl Transferrin % Sat (20-50) % Ferritin (8-388) ng/ml Total Bilirubin (0.2-1) mg/dl Direct Bilirubin (0-0.2) mg/dl AST (15-37) U/L ALT (12-78) U/L Alkaline Phosphatase (45-117) U/L Ammonia (11-32) umol/L Troponin I (0-0.045) ng/ml C-Reactive Protein (0-0.29) mg/dl NT-Pro-B Natriuret Pep (0-1800) pg/ml Total Protein (6.4-8.2) gm/dl Albumin (3.4-5.0) gm/dl Globulin (2.5-4.0) gm/dl Albumin/Globulin Ratio (0.9-2) Procalcitonin (0-0.5) ng/ml TSH (0.300-4.500) uIu/ml Free T4 (0.8-1.6) ng/dl Urine Color Urine Appearance (Clear) Urine pH (4.5-7.5) Ur Specific [place] (1.000-1.030) Urine Protein (Negative) Urine Glucose (UA) (Negative) Urine Ketones (Negative) Urine Blood (Negative) Urine Nitrite (Negative) Urine Bilirubin (Negative) Urine Urobilinogen (Negative) Ur Leukocyte Esterase (Negative) Urine WBC (Auto) (0-5) /hpf Urine RBC (Auto) (0-4) /hpf U Hyaline Cast (Auto) (0-5) /lpf U Epithel Cells (Auto) (0-5) /lpf Urine Bacteria (Auto) (Negative) COVID-19 Eval Order SARS-CoV-2 (PCR) (Negative) Influenza Type A (PCR) (Neg) Influenza Type B (PCR) (Neg) RSV (RT-PCR) (Neg) Blood Type Antibody Screen Crossmatch 01/11/21 01/12/21 01/14/21 Range/Units 05:20 08:24 08:03 WBC (4.8-10.8) K/uL RBC (4.7-6.1) M/uL Hgb 8.4 L 8.4 L (14.0-18.0) g/dL Hct 26.5 L 26.5 L (42-52) % MCV (80-100) fL MCH (25-34) pg MCHC (32-36) g/dL RDW Std Deviation (36.4-46.3) fL RDW Coeff of Chel (11.5-14.5) % Plt Count (130-400) K/uL MPV (7.4-10.4) fL Immature Gran % (Auto) % Neut % (Auto) % Lymph % (Auto) % [place] % (Auto) % Eos % (Auto) % Baso % (Auto) % Neut # (Auto) (1.4-6.5) K/uL Lymph # (Auto) (1.2-3.4) K/uL [place] # (Auto) (0.11-0.59) K/uL Eos # (Auto) (0-0.5) K/uL Baso # (Auto) (0-0.2) K/uL Immature Gran # (Auto) (0.00-0.02) K/uL Absolute Nucleated RBC (0-0) K/uL Nucleated RBC % (auto) % Anisocytosis ESR (0-20) mm/hr PT (9.0-12.0) Seconds INR (0.9-1.1) APTT (21.0-31.0) Seconds PTT Ratio Sodium 136 (136-145) mmol/L Potassium 3.7 (3.5-5.1) mmol/L Chloride 102 (98-107) mmol/L Carbon Dioxide 30 (21-32) mmol/L Anion Gap 4.0 (3-11) BUN 24 H (7-18) mg/dl Creatinine 0.92 (0.6-1.4) mg/dl Est Cr Clr Drug Dosing 58.4 ml/min Est GFR ( Amer) 86.4 Est GFR (Non-Af Amer) 74.5 BUN/Creatinine Ratio 26.5 H (10-20) Glucose 114 H (70-99) mg/dl Lactate (0.4-2.0) mmol/L Calcium 7.6 L (8.5-10.1) mg/dl Magnesium (1.8-2.4) mg/dl Iron (35-175) mcg/dl TIBC (250-450) mcg/dl Transferrin (200-360) mg/dl Transferrin % Sat (20-50) % Ferritin (8-388) ng/ml Total Bilirubin (0.2-1) mg/dl Direct Bilirubin (0-0.2) mg/dl AST (15-37) U/L ALT (12-78) U/L Alkaline Phosphatase (45-117) U/L Ammonia (11-32) umol/L Troponin I (0-0.045) ng/ml C-Reactive Protein (0-0.29) mg/dl NT-Pro-B Natriuret Pep (0-1800) pg/ml Total Protein (6.4-8.2) gm/dl Albumin (3.4-5.0) gm/dl Globulin (2.5-4.0) gm/dl Albumin/Globulin Ratio (0.9-2) Procalcitonin (0-0.5) ng/ml TSH (0.300-4.500) uIu/ml Free T4 (0.8-1.6) ng/dl Urine Color Urine Appearance (Clear) Urine pH (4.5-7.5) Ur Specific [place] (1.000-1.030) Urine Protein (Negative) Urine Glucose (UA) (Negative) Urine Ketones (Negative) Urine Blood (Negative) Urine Nitrite (Negative) Urine Bilirubin (Negative) Urine Urobilinogen (Negative) Ur Leukocyte Esterase (Negative) Urine WBC (Auto) (0-5) /hpf Urine RBC (Auto) (0-4) /hpf U Hyaline Cast (Auto) (0-5) /lpf U Epithel Cells (Auto) (0-5) /lpf Urine Bacteria (Auto) (Negative) COVID-19 Eval Order SARS-CoV-2 (PCR) (Negative) Influenza Type A (PCR) (Neg) Influenza Type B (PCR) (Neg) RSV (RT-PCR) (Neg) Blood Type Antibody Screen Crossmatch 01/14/21 01/14/21 01/14/21 Range/Units 08:03 08:03 09:18 WBC (4.8-10.8) K/uL RBC (4.7-6.1) M/uL Hgb (14.0-18.0) g/dL Hct (42-52) % MCV (80-100) fL MCH (25-34) pg MCHC (32-36) g/dL RDW Std Deviation (36.4-46.3) fL RDW Coeff of Chel (11.5-14.5) % Plt Count (130-400) K/uL MPV (7.4-10.4) fL Immature Gran % (Auto) % Neut % (Auto) % Lymph % (Auto) % [place] % (Auto) % Eos % (Auto) % Baso % (Auto) % Neut # (Auto) (1.4-6.5) K/uL Lymph # (Auto) (1.2-3.4) K/uL [place] # (Auto) (0.11-0.59) K/uL Eos # (Auto) (0-0.5) K/uL Baso # (Auto) (0-0.2) K/uL Immature Gran # (Auto) (0.00-0.02) K/uL Absolute Nucleated RBC (0-0) K/uL Nucleated RBC % (auto) % Anisocytosis ESR (0-20) mm/hr PT (9.0-12.0) Seconds INR (0.9-1.1) APTT (21.0-31.0) Seconds PTT Ratio Sodium 133 L (136-145) mmol/L Potassium 4.5 (3.5-5.1) mmol/L Chloride 101 (98-107) mmol/L Carbon Dioxide 28 (21-32) mmol/L Anion Gap 5.0 (3-11) BUN 26 H (7-18) mg/dl Creatinine 0.92 (0.6-1.4) mg/dl Est Cr Clr Drug Dosing 58.4 ml/min Est GFR ( Amer) 86.4 Est GFR (Non-Af Amer) 74.5 BUN/Creatinine Ratio 28.7 H (10-20) Glucose 85 (70-99) mg/dl Lactate (0.4-2.0) mmol/L Calcium 8.1 L (8.5-10.1) mg/dl Magnesium (1.8-2.4) mg/dl Iron (35-175) mcg/dl TIBC (250-450) mcg/dl Transferrin (200-360) mg/dl Transferrin % Sat (20-50) % Ferritin (8-388) ng/ml Total Bilirubin (0.2-1) mg/dl Direct Bilirubin (0-0.2) mg/dl AST (15-37) U/L ALT (12-78) U/L Alkaline Phosphatase (45-117) U/L Ammonia 50.0 H (11-32) umol/L Troponin I (0-0.045) ng/ml C-Reactive Protein (0-0.29) mg/dl NT-Pro-B Natriuret Pep 3798 H (0-1800) pg/ml Total Protein (6.4-8.2) gm/dl Albumin (3.4-5.0) gm/dl Globulin (2.5-4.0) gm/dl Albumin/Globulin Ratio (0.9-2) Procalcitonin (0-0.5) ng/ml TSH (0.300-4.500) uIu/ml Free T4 (0.8-1.6) ng/dl Urine Color Urine Appearance (Clear) Urine pH (4.5-7.5) Ur Specific [place] (1.000-1.030) Urine Protein (Negative) Urine Glucose (UA) (Negative) Urine Ketones (Negative) Urine Blood (Negative) Urine Nitrite (Negative) Urine Bilirubin (Negative) Urine Urobilinogen (Negative) Ur Leukocyte Esterase (Negative) Urine WBC (Auto) (0-5) /hpf Urine RBC (Auto) (0-4) /hpf U Hyaline Cast (Auto) (0-5) /lpf U Epithel Cells (Auto) (0-5) /lpf Urine Bacteria (Auto) (Negative) COVID-19 Eval Order SARS-CoV-2 (PCR) (Negative) Influenza Type A (PCR) (Neg) Influenza Type B (PCR) (Neg) RSV (RT-PCR) (Neg) Blood Type Antibody Screen Crossmatch 01/14/21 01/14/21 01/14/21 Range/Units 15:37 15:37 15:37 WBC (4.8-10.8) K/uL RBC (4.7-6.1) M/uL Hgb (14.0-18.0) g/dL Hct (42-52) % MCV (80-100) fL MCH (25-34) pg MCHC (32-36) g/dL RDW Std Deviation (36.4-46.3) fL RDW Coeff of Chel (11.5-14.5) % Plt Count (130-400) K/uL MPV (7.4-10.4) fL Immature Gran % (Auto) % Neut % (Auto) % Lymph % (Auto) % [place] % (Auto) % Eos % (Auto) % Baso % (Auto) % Neut # (Auto) (1.4-6.5) K/uL Lymph # (Auto) (1.2-3.4) K/uL [place] # (Auto) (0.11-0.59) K/uL Eos # (Auto) (0-0.5) K/uL Baso # (Auto) (0-0.2) K/uL Immature Gran # (Auto) (0.00-0.02) K/uL Absolute Nucleated RBC (0-0) K/uL Nucleated RBC % (auto) % Anisocytosis ESR 70 H (0-20) mm/hr PT (9.0-12.0) Seconds INR (0.9-1.1) APTT (21.0-31.0) Seconds PTT Ratio Sodium (136-145) mmol/L Potassium (3.5-5.1) mmol/L Chloride (98-107) mmol/L Carbon Dioxide (21-32) mmol/L Anion Gap (3-11) BUN (7-18) mg/dl Creatinine (0.6-1.4) mg/dl Est Cr Clr Drug Dosing ml/min Est GFR ( Amer) Est GFR (Non-Af Amer) BUN/Creatinine Ratio (10-20) Glucose (70-99) mg/dl Lactate (0.4-2.0) mmol/L Calcium (8.5-10.1) mg/dl Magnesium (1.8-2.4) mg/dl Iron (35-175) mcg/dl TIBC (250-450) mcg/dl Transferrin (200-360) mg/dl Transferrin % Sat (20-50) % Ferritin (8-388) ng/ml Total Bilirubin (0.2-1) mg/dl Direct Bilirubin (0-0.2) mg/dl AST (15-37) U/L ALT (12-78) U/L Alkaline Phosphatase (45-117) U/L Ammonia (11-32) umol/L Troponin I (0-0.045) ng/ml C-Reactive Protein 6.77 H (0-0.29) mg/dl NT-Pro-B Natriuret Pep (0-1800) pg/ml Total Protein (6.4-8.2) gm/dl Albumin (3.4-5.0) gm/dl Globulin (2.5-4.0) gm/dl Albumin/Globulin Ratio (0.9-2) Procalcitonin 0.14 (0-0.5) ng/ml TSH (0.300-4.500) uIu/ml Free T4 (0.8-1.6) ng/dl Urine Color Urine Appearance (Clear) Urine pH (4.5-7.5) Ur Specific [place] (1.000-1.030) Urine Protein (Negative) Urine Glucose (UA) (Negative) Urine Ketones (Negative) Urine Blood (Negative) Urine Nitrite (Negative) Urine Bilirubin (Negative) Urine Urobilinogen (Negative) Ur Leukocyte Esterase (Negative) Urine WBC (Auto) (0-5) /hpf Urine RBC (Auto) (0-4) /hpf U Hyaline Cast (Auto) (0-5) /lpf U Epithel Cells (Auto) (0-5) /lpf Urine Bacteria (Auto) (Negative) COVID-19 Eval Order SARS-CoV-2 (PCR) (Negative) Influenza Type A (PCR) (Neg) Influenza Type B (PCR) (Neg) RSV (RT-PCR) (Neg) Blood Type Antibody Screen Crossmatch 01/15/21 01/15/21 01/15/21 Range/Units 05:53 05:53 05:53 WBC 5.93 (4.8-10.8) K/uL RBC 2.73 L (4.7-6.1) M/uL Hgb 8.1 L (14.0-18.0) g/dL Hct 25.6 L (42-52) % MCV 93.8 (80-100) fL MCH 29.7 (25-34) pg MCHC 31.6 L (32-36) g/dL RDW Std Deviation 58.3 H (36.4-46.3) fL RDW Coeff of Chel 17.1 H (11.5-14.5) % Plt Count 262 (130-400) K/uL MPV 8.4 (7.4-10.4) fL Immature Gran % (Auto) % Neut % (Auto) % Lymph % (Auto) % [place] % (Auto) % Eos % (Auto) % Baso % (Auto) % Neut # (Auto) (1.4-6.5) K/uL Lymph # (Auto) (1.2-3.4) K/uL [place] # (Auto) (0.11-0.59) K/uL Eos # (Auto) (0-0.5) K/uL Baso # (Auto) (0-0.2) K/uL Immature Gran # (Auto) (0.00-0.02) K/uL Absolute Nucleated RBC (0-0) K/uL Nucleated RBC % (auto) % Anisocytosis ESR (0-20) mm/hr PT (9.0-12.0) Seconds INR (0.9-1.1) APTT (21.0-31.0) Seconds PTT Ratio Sodium 135 L (136-145) mmol/L Potassium 3.9 (3.5-5.1) mmol/L Chloride 102 (98-107) mmol/L Carbon Dioxide 30 (21-32) mmol/L Anion Gap 3.0 (3-11) BUN 23 H (7-18) mg/dl Creatinine 0.90 (0.6-1.4) mg/dl Est Cr Clr Drug Dosing 59.7 ml/min Est GFR ( Amer) 88.7 Est GFR (Non-Af Amer) 76.5 BUN/Creatinine Ratio 25.8 H (10-20) Glucose 92 (70-99) mg/dl Lactate (0.4-2.0) mmol/L Calcium 7.4 L (8.5-10.1) mg/dl Magnesium (1.8-2.4) mg/dl Iron 27 L (35-175) mcg/dl TIBC 312 (250-450) mcg/dl Transferrin 193 L (200-360) mg/dl Transferrin % Sat 10 L (20-50) % Ferritin 113.9 (8-388) ng/ml Total Bilirubin 2.2 H (0.2-1) mg/dl Direct Bilirubin (0-0.2) mg/dl AST 41 H (15-37) U/L ALT 23 (12-78) U/L Alkaline Phosphatase 235 H (45-117) U/L Ammonia 59.0 H (11-32) umol/L Troponin I (0-0.045) ng/ml C-Reactive Protein (0-0.29) mg/dl NT-Pro-B Natriuret Pep (0-1800) pg/ml Total Protein 6.6 (6.4-8.2) gm/dl Albumin 2.3 L (3.4-5.0) gm/dl Globulin 4.3 H (2.5-4.0) gm/dl Albumin/Globulin Ratio 0.5 L (0.9-2) Procalcitonin (0-0.5) ng/ml TSH (0.300-4.500) uIu/ml Free T4 (0.8-1.6) ng/dl Urine Color Urine Appearance (Clear) Urine pH (4.5-7.5) Ur Specific [place] (1.000-1.030) Urine Protein (Negative) Urine Glucose (UA) (Negative) Urine Ketones (Negative) Urine Blood (Negative) Urine Nitrite (Negative) Urine Bilirubin (Negative) Urine Urobilinogen (Negative) Ur Leukocyte Esterase (Negative) Urine WBC (Auto) (0-5) /hpf Urine RBC (Auto) (0-4) /hpf U Hyaline Cast (Auto) (0-5) /lpf U Epithel Cells (Auto) (0-5) /lpf Urine Bacteria (Auto) (Negative) COVID-19 Eval Order SARS-CoV-2 (PCR) (Negative) Influenza Type A (PCR) (Neg) Influenza Type B (PCR) (Neg) RSV (RT-PCR) (Neg) Blood Type Antibody Screen Crossmatch 01/15/21 01/16/21 01/16/21 Range/Units 17:23 07:37 07:37 WBC 6.14 (4.8-10.8) K/uL RBC 2.91 L (4.7-6.1) M/uL Hgb 8.8 L (14.0-18.0) g/dL Hct 27.8 L (42-52) % MCV 95.5 (80-100) fL MCH 30.2 (25-34) pg MCHC 31.7 L (32-36) g/dL RDW Std Deviation 59.4 H (36.4-46.3) fL RDW Coeff of Chel 17.2 H (11.5-14.5) % Plt Count 251 (130-400) K/uL MPV 8.5 (7.4-10.4) fL Immature Gran % (Auto) 0.7 % Neut % (Auto) 63.7 % Lymph % (Auto) 18.2 % [place] % (Auto) 11.2 % Eos % (Auto) 5.7 % Baso % (Auto) 0.5 % Neut # (Auto) 3.91 (1.4-6.5) K/uL Lymph # (Auto) 1.12 L (1.2-3.4) K/uL [place] # (Auto) 0.69 H (0.11-0.59) K/uL Eos # (Auto) 0.35 (0-0.5) K/uL Baso # (Auto) 0.03 (0-0.2) K/uL Immature Gran # (Auto) 0.04 H (0.00-0.02) K/uL Absolute Nucleated RBC (0-0) K/uL Nucleated RBC % (auto) % Anisocytosis ESR (0-20) mm/hr PT 13.4 H (9.0-12.0) Seconds INR 1.4 H (0.9-1.1) APTT (21.0-31.0) Seconds PTT Ratio Sodium (136-145) mmol/L Potassium (3.5-5.1) mmol/L Chloride (98-107) mmol/L Carbon Dioxide (21-32) mmol/L Anion Gap (3-11) BUN (7-18) mg/dl Creatinine (0.6-1.4) mg/dl Est Cr Clr Drug Dosing ml/min Est GFR ( Amer) Est GFR (Non-Af Amer) BUN/Creatinine Ratio (10-20) Glucose (70-99) mg/dl Lactate (0.4-2.0) mmol/L Calcium (8.5-10.1) mg/dl Magnesium (1.8-2.4) mg/dl Iron (35-175) mcg/dl TIBC (250-450) mcg/dl Transferrin (200-360) mg/dl Transferrin % Sat (20-50) % Ferritin (8-388) ng/ml Total Bilirubin (0.2-1) mg/dl Direct Bilirubin (0-0.2) mg/dl AST (15-37) U/L ALT (12-78) U/L Alkaline Phosphatase (45-117) U/L Ammonia (11-32) umol/L Troponin I (0-0.045) ng/ml C-Reactive Protein (0-0.29) mg/dl NT-Pro-B Natriuret Pep (0-1800) pg/ml Total Protein (6.4-8.2) gm/dl Albumin (3.4-5.0) gm/dl Globulin (2.5-4.0) gm/dl Albumin/Globulin Ratio (0.9-2) Procalcitonin (0-0.5) ng/ml TSH (0.300-4.500) uIu/ml Free T4 (0.8-1.6) ng/dl Urine Color Urine Appearance (Clear) Urine pH (4.5-7.5) Ur Specific [place] (1.000-1.030) Urine Protein (Negative) Urine Glucose (UA) (Negative) Urine Ketones (Negative) Urine Blood (Negative) Urine Nitrite (Negative) Urine Bilirubin (Negative) Urine Urobilinogen (Negative) Ur Leukocyte Esterase (Negative) Urine WBC (Auto) (0-5) /hpf Urine RBC (Auto) (0-4) /hpf U Hyaline Cast (Auto) (0-5) /lpf U Epithel Cells (Auto) (0-5) /lpf Urine Bacteria (Auto) (Negative) COVID-19 Eval Order SARS-CoV-2 (PCR) (Negative) Influenza Type A (PCR) (Neg) Influenza Type B (PCR) (Neg) RSV (RT-PCR) (Neg) Blood Type O Positive Antibody Screen NEGATIVE Crossmatch See Detail 01/16/21 01/16/21 01/16/21 Range/Units 07:37 07:37 07:41 WBC (4.8-10.8) K/uL RBC (4.7-6.1) M/uL Hgb (14.0-18.0) g/dL Hct (42-52) % MCV (80-100) fL MCH (25-34) pg MCHC (32-36) g/dL RDW Std Deviation (36.4-46.3) fL RDW Coeff of Chel (11.5-14.5) % Plt Count (130-400) K/uL MPV (7.4-10.4) fL Immature Gran % (Auto) % Neut % (Auto) % Lymph % (Auto) % [place] % (Auto) % Eos % (Auto) % Baso % (Auto) % Neut # (Auto) (1.4-6.5) K/uL Lymph # (Auto) (1.2-3.4) K/uL [place] # (Auto) (0.11-0.59) K/uL Eos # (Auto) (0-0.5) K/uL Baso # (Auto) (0-0.2) K/uL Immature Gran # (Auto) (0.00-0.02) K/uL Absolute Nucleated RBC (0-0) K/uL Nucleated RBC % (auto) % Anisocytosis ESR 45 H (0-20) mm/hr PT (9.0-12.0) Seconds INR (0.9-1.1) APTT (21.0-31.0) Seconds PTT Ratio Sodium 136 (136-145) mmol/L Potassium 3.9 (3.5-5.1) mmol/L Chloride 102 (98-107) mmol/L Carbon Dioxide 30 (21-32) mmol/L Anion Gap 4.0 (3-11) BUN 20 H (7-18) mg/dl Creatinine 0.96 (0.6-1.4) mg/dl Est Cr Clr Drug Dosing 56.0 ml/min Est GFR ( Amer) 82.0 Est GFR (Non-Af Amer) 70.8 BUN/Creatinine Ratio 20.5 H (10-20) Glucose 105 H (70-99) mg/dl Lactate (0.4-2.0) mmol/L Calcium 8.2 L (8.5-10.1) mg/dl Magnesium (1.8-2.4) mg/dl Iron (35-175) mcg/dl TIBC (250-450) mcg/dl Transferrin (200-360) mg/dl Transferrin % Sat (20-50) % Ferritin (8-388) ng/ml Total Bilirubin 2.1 H (0.2-1) mg/dl Direct Bilirubin (0-0.2) mg/dl AST 54 H (15-37) U/L ALT 26 (12-78) U/L Alkaline Phosphatase 261 H (45-117) U/L Ammonia 57.8 H (11-32) umol/L Troponin I (0-0.045) ng/ml C-Reactive Protein 4.32 H (0-0.29) mg/dl NT-Pro-B Natriuret Pep (0-1800) pg/ml Total Protein 6.5 (6.4-8.2) gm/dl Albumin 2.5 L (3.4-5.0) gm/dl Globulin 4.0 (2.5-4.0) gm/dl Albumin/Globulin Ratio 0.6 L (0.9-2) Procalcitonin (0-0.5) ng/ml TSH (0.300-4.500) uIu/ml Free T4 (0.8-1.6) ng/dl Urine Color Urine Appearance (Clear) Urine pH (4.5-7.5) Ur Specific [place] (1.000-1.030) Urine Protein (Negative) Urine Glucose (UA) (Negative) Urine Ketones (Negative) Urine Blood (Negative) Urine Nitrite (Negative) Urine Bilirubin (Negative) Urine Urobilinogen (Negative) Ur Leukocyte Esterase (Negative) Urine WBC (Auto) (0-5) /hpf Urine RBC (Auto) (0-4) /hpf U Hyaline Cast (Auto) (0-5) /lpf U Epithel Cells (Auto) (0-5) /lpf Urine Bacteria (Auto) (Negative) COVID-19 Eval Order SARS-CoV-2 (PCR) (Negative) Influenza Type A (PCR) (Neg) Influenza Type B (PCR) (Neg) RSV (RT-PCR) (Neg) Blood Type Antibody Screen Crossmatch 01/17/21 01/17/21 01/17/21 Range/Units 05:45 05:45 05:45 WBC 5.66 (4.8-10.8) K/uL RBC 2.92 L (4.7-6.1) M/uL Hgb 8.7 L (14.0-18.0) g/dL Hct 28.1 L (42-52) % MCV 96.2 (80-100) fL MCH 29.8 (25-34) pg MCHC 31.0 L (32-36) g/dL RDW Std Deviation 59.8 H (36.4-46.3) fL RDW Coeff of Chel 17.2 H (11.5-14.5) % Plt Count 256 (130-400) K/uL MPV 8.4 (7.4-10.4) fL Immature Gran % (Auto) % Neut % (Auto) % Lymph % (Auto) % [place] % (Auto) % Eos % (Auto) % Baso % (Auto) % Neut # (Auto) (1.4-6.5) K/uL Lymph # (Auto) (1.2-3.4) K/uL [place] # (Auto) (0.11-0.59) K/uL Eos # (Auto) (0-0.5) K/uL Baso # (Auto) (0-0.2) K/uL Immature Gran # (Auto) (0.00-0.02) K/uL Absolute Nucleated RBC 0.02 H (0-0) K/uL Nucleated RBC % (auto) 0.3 % Anisocytosis ESR (0-20) mm/hr PT 13.3 H (9.0-12.0) Seconds INR 1.3 H (0.9-1.1) APTT (21.0-31.0) Seconds PTT Ratio Sodium 137 (136-145) mmol/L Potassium 4.0 (3.5-5.1) mmol/L Chloride 101 (98-107) mmol/L Carbon Dioxide 32 (21-32) mmol/L Anion Gap 4.0 (3-11) BUN 23 H (7-18) mg/dl Creatinine 1.05 (0.6-1.4) mg/dl Est Cr Clr Drug Dosing 51.2 ml/min Est GFR ( Amer) 73.6 Est GFR (Non-Af Amer) 63.5 BUN/Creatinine Ratio 22.3 H (10-20) Glucose 117 H (70-99) mg/dl Lactate (0.4-2.0) mmol/L Calcium 7.7 L (8.5-10.1) mg/dl Magnesium (1.8-2.4) mg/dl Iron (35-175) mcg/dl TIBC (250-450) mcg/dl Transferrin (200-360) mg/dl Transferrin % Sat (20-50) % Ferritin (8-388) ng/ml Total Bilirubin 2.2 H (0.2-1) mg/dl Direct Bilirubin 1.4 H (0-0.2) mg/dl AST 37 (15-37) U/L ALT 23 (12-78) U/L Alkaline Phosphatase 240 H (45-117) U/L Ammonia (11-32) umol/L Troponin I (0-0.045) ng/ml C-Reactive Protein (0-0.29) mg/dl NT-Pro-B Natriuret Pep (0-1800) pg/ml Total Protein 6.7 (6.4-8.2) gm/dl Albumin 2.5 L (3.4-5.0) gm/dl Globulin (2.5-4.0) gm/dl Albumin/Globulin Ratio (0.9-2) Procalcitonin (0-0.5) ng/ml TSH (0.300-4.500) uIu/ml Free T4 (0.8-1.6) ng/dl Urine Color Urine Appearance (Clear) Urine pH (4.5-7.5) Ur Specific [place] (1.000-1.030) Urine Protein (Negative) Urine Glucose (UA) (Negative) Urine Ketones (Negative) Urine Blood (Negative) Urine Nitrite (Negative) Urine Bilirubin (Negative) Urine Urobilinogen (Negative) Ur Leukocyte Esterase (Negative) Urine WBC (Auto) (0-5) /hpf Urine RBC (Auto) (0-4) /hpf U Hyaline Cast (Auto) (0-5) /lpf U Epithel Cells (Auto) (0-5) /lpf Urine Bacteria (Auto) (Negative) COVID-19 Eval Order SARS-CoV-2 (PCR) (Negative) Influenza Type A (PCR) (Neg) Influenza Type B (PCR) (Neg) RSV (RT-PCR) (Neg) Blood Type Antibody Screen Crossmatch 01/17/21 01/18/21 01/18/21 Range/Units 05:48 07:13 07:13 WBC 7.28 (4.8-10.8) K/uL RBC 2.88 L (4.7-6.1) M/uL Hgb 8.8 L (14.0-18.0) g/dL Hct 27.6 L (42-52) % MCV 95.8 (80-100) fL MCH 30.6 (25-34) pg MCHC 31.9 L (32-36) g/dL RDW Std Deviation 59.8 H (36.4-46.3) fL RDW Coeff of Chel 17.5 H (11.5-14.5) % Plt Count 264 (130-400) K/uL MPV 8.4 (7.4-10.4) fL Immature Gran % (Auto) % Neut % (Auto) % Lymph % (Auto) % [place] % (Auto) % Eos % (Auto) % Baso % (Auto) % Neut # (Auto) (1.4-6.5) K/uL Lymph # (Auto) (1.2-3.4) K/uL [place] # (Auto) (0.11-0.59) K/uL Eos # (Auto) (0-0.5) K/uL Baso # (Auto) (0-0.2) K/uL Immature Gran # (Auto) (0.00-0.02) K/uL Absolute Nucleated RBC (0-0) K/uL Nucleated RBC % (auto) % Anisocytosis ESR (0-20) mm/hr PT (9.0-12.0) Seconds INR (0.9-1.1) APTT (21.0-31.0) Seconds PTT Ratio Sodium (136-145) mmol/L Potassium (3.5-5.1) mmol/L Chloride (98-107) mmol/L Carbon Dioxide (21-32) mmol/L Anion Gap (3-11) BUN (7-18) mg/dl Creatinine (0.6-1.4) mg/dl Est Cr Clr Drug Dosing ml/min Est GFR ( Amer) Est GFR (Non-Af Amer) BUN/Creatinine Ratio (10-20) Glucose (70-99) mg/dl Lactate (0.4-2.0) mmol/L Calcium (8.5-10.1) mg/dl Magnesium (1.8-2.4) mg/dl Iron (35-175) mcg/dl TIBC (250-450) mcg/dl Transferrin (200-360) mg/dl Transferrin % Sat (20-50) % Ferritin (8-388) ng/ml Total Bilirubin (0.2-1) mg/dl Direct Bilirubin (0-0.2) mg/dl AST (15-37) U/L ALT (12-78) U/L Alkaline Phosphatase (45-117) U/L Ammonia 58.0 H (11-32) umol/L Troponin I (0-0.045) ng/ml C-Reactive Protein (0-0.29) mg/dl NT-Pro-B Natriuret Pep (0-1800) pg/ml Total Protein (6.4-8.2) gm/dl Albumin (3.4-5.0) gm/dl Globulin (2.5-4.0) gm/dl Albumin/Globulin Ratio (0.9-2) Procalcitonin (0-0.5) ng/ml TSH (0.300-4.500) uIu/ml Free T4 (0.8-1.6) ng/dl Urine Color Urine Appearance (Clear) Urine pH (4.5-7.5) Ur Specific [place] (1.000-1.030) Urine Protein (Negative) Urine Glucose (UA) (Negative) Urine Ketones (Negative) Urine Blood (Negative) Urine Nitrite (Negative) Urine Bilirubin (Negative) Urine Urobilinogen (Negative) Ur Leukocyte Esterase (Negative) Urine WBC (Auto) (0-5) /hpf Urine RBC (Auto) (0-4) /hpf U Hyaline Cast (Auto) (0-5) /lpf U Epithel Cells (Auto) (0-5) /lpf Urine Bacteria (Auto) (Negative) COVID-19 Eval Order SARS-CoV-2 (PCR) (Negative) Influenza Type A (PCR) (Neg) Influenza Type B (PCR) (Neg) RSV (RT-PCR) (Neg) Blood Type O Positive Antibody Screen NEGATIVE Crossmatch See Detail 01/18/21 01/18/21 01/18/21 Range/Units 07:13 07:13 07:13 WBC (4.8-10.8) K/uL RBC (4.7-6.1) M/uL Hgb (14.0-18.0) g/dL Hct (42-52) % MCV (80-100) fL MCH (25-34) pg MCHC (32-36) g/dL RDW Std Deviation (36.4-46.3) fL RDW Coeff of Chel (11.5-14.5) % Plt Count (130-400) K/uL MPV (7.4-10.4) fL Immature Gran % (Auto) % Neut % (Auto) % Lymph % (Auto) % [place] % (Auto) % Eos % (Auto) % Baso % (Auto) % Neut # (Auto) (1.4-6.5) K/uL Lymph # (Auto) (1.2-3.4) K/uL [place] # (Auto) (0.11-0.59) K/uL Eos # (Auto) (0-0.5) K/uL Baso # (Auto) (0-0.2) K/uL Immature Gran # (Auto) (0.00-0.02) K/uL Absolute Nucleated RBC (0-0) K/uL Nucleated RBC % (auto) % Anisocytosis ESR (0-20) mm/hr PT 13.5 H (9.0-12.0) Seconds INR 1.4 H (0.9-1.1) APTT (21.0-31.0) Seconds PTT Ratio Sodium 136 (136-145) mmol/L Potassium 3.9 (3.5-5.1) mmol/L Chloride 100 (98-107) mmol/L Carbon Dioxide 31 (21-32) mmol/L Anion Gap 5.0 (3-11) BUN 22 H (7-18) mg/dl Creatinine 0.98 (0.6-1.4) mg/dl Est Cr Clr Drug Dosing 54.8 ml/min Est GFR ( Amer) 80.0 Est GFR (Non-Af Amer) 69.0 BUN/Creatinine Ratio 22.4 H (10-20) Glucose 85 (70-99) mg/dl Lactate (0.4-2.0) mmol/L Calcium 8.3 L (8.5-10.1) mg/dl Magnesium (1.8-2.4) mg/dl Iron (35-175) mcg/dl TIBC (250-450) mcg/dl Transferrin (200-360) mg/dl Transferrin % Sat (20-50) % Ferritin (8-388) ng/ml Total Bilirubin 2.1 H (0.2-1) mg/dl Direct Bilirubin 1.1 H (0-0.2) mg/dl AST 37 (15-37) U/L ALT 20 (12-78) U/L Alkaline Phosphatase 248 H (45-117) U/L Ammonia 39.3 H (11-32) umol/L Troponin I (0-0.045) ng/ml C-Reactive Protein (0-0.29) mg/dl NT-Pro-B Natriuret Pep (0-1800) pg/ml Total Protein 6.5 (6.4-8.2) gm/dl Albumin 2.5 L (3.4-5.0) gm/dl Globulin (2.5-4.0) gm/dl Albumin/Globulin Ratio (0.9-2) Procalcitonin (0-0.5) ng/ml TSH (0.300-4.500) uIu/ml Free T4 (0.8-1.6) ng/dl Urine Color Urine Appearance (Clear) Urine pH (4.5-7.5) Ur Specific [place] (1.000-1.030) Urine Protein (Negative) Urine Glucose (UA) (Negative) Urine Ketones (Negative) Urine Blood (Negative) Urine Nitrite (Negative) Urine Bilirubin (Negative) Urine Urobilinogen (Negative) Ur Leukocyte Esterase (Negative) Urine WBC (Auto) (0-5) /hpf Urine RBC (Auto) (0-4) /hpf U Hyaline Cast (Auto) (0-5) /lpf U Epithel Cells (Auto) (0-5) /lpf Urine Bacteria (Auto) (Negative) COVID-19 Eval Order SARS-CoV-2 (PCR) (Negative) Influenza Type A (PCR) (Neg) Influenza Type B (PCR) (Neg) RSV (RT-PCR) (Neg) Blood Type Antibody Screen Crossmatch (1) Hematoma of left thigh Encounter type: initial encounter Qualified Code(s): S70.12XA - Contusion of left thigh, initial encounter
--- NOTE | 2021-01-18 10:27 | Hospitalist Progress Note ---
Date of Service January 18, 2021 Assessment & Plan (1) Hematoma of left lower leg: Secondary to fall on rug at home. CT LEFT Femur on admission with hematoma measures approximately 30 x 11 x 7.5 cm Anemia secondary to hematoma * Iron studies with : * -->iron 27L, TIBC 312/ferritin 113 wnl, trans % sat low 10, transferrin low 193. * --> Will give dose of IV Venofer today over PO give hematoma and constipation * Repeat CBC in AM MRI with enlargement of hematoma on 01/14 to 31.7 x 12.5 x 7[address] of January 08, 2021. Orthopedics consulted, Dr. Blackmon S/P I&D LEFT THIGH HEMATOMA 01/[address] Blackmon. EBL 25cc. * INR was 1.4 -- ordered 2 units FFP prior to surgery (given) and 10mg Vit K evening 01/15 * Per operative report, 1000cc large loculated hematoma evacuated and wound vac placed * D/c'd IVF as ordered by orthopedics given patient with active HF and requiring diuresis and tolerating diet without issue * --> Continuing lasix 40mg IV daily * Lincoln placed and will get more accurate I&O however weights still inaccurate * Doing well, hungry and waiting for OR * H/h stable 8.8/27.1 and has gotten total of 3 units PRBC (not since surgery for 1 unit, 2u early in stay last week) * NPO for OR today with Dr. Dill * --> initial plans for repeat wound vac exchanges 01/21, 01/23 planned but will see how repeat exchanges go as output sign decreased. * To get tranexamic acid before and after surgery * FFP 2 units ordered and on hold for today. No further Vit K needed. INR 1.4 Will need repeat therapy evals to see about SNF given prior denial and was deemed at baseline. Given above, anticipate no issues with getting approval (2) Anemia: * See above, secondary to #1 * Would place on PO iron once constipation resolved given iron low at 27, trans sat % 10L, transferrin 193L, TIBC wnl at 312 and ferritin 113 * Venofer x 1 on 01/15 * 2 units PRBC prior to surgery and 1 unit PRBC given with surgery on 01/16 * h/h stable at 8.7 but given another dose of venofer 01/17 --> hgb 8.8 on AM labs * Would place on daily supplementation now that constipation but wait until doxy completed * CBC in AM (3) Acute on chronic diastolic (congestive) heart failure: * due to RIGHT SIDED HEART FAILURE/CIRRHOSIS * -- secondary to medication non-compliance/cognitive decline. * Was on lasix 40mg QOD during admission but was on daily dose with 100mg spironolactone * BNP 3798 on 01/14 * ECHO with evidence for volume overload with elevated RVSP * Weight 75.9kg on 01/14 (67.7kg baseline "dry weight" but told PA at CHF clinic feels better around 160lb)-- unchanged essentially but not getting accurate weights * Based on I&O has put out 2L on 01/17 and additional 2.2L on 01/18 now finally with net negative 1L for the day * Would not place on IVF as previously ordered by ortho in patient with active diastolic HF * Continues on Lasix 40mg IV daily * 90% on room air and kidney function stable. * --> May need to increase to BID dosing * Continue to monitor (4) Hepatic cirrhosis: * Unclear whether the patient is taking spironolactone or furosemide at the current time. * --> Lungs with wheezing and noted cough. * He noted he had been taking diuretics at discharge last admission "took until they were completed" implying that he had no refills and this was reason to not be continued on these medications * --> stated he is confused and had been taking both of these medications daily * Restarted Lasix and spironolactone as above * Ammonia further elevated to 59 and was given lactulose with BM on 01/15 (first since 01/09 and likely contributing to confusion as well) * Placed on Lactulose 20mg and increased to TID --> increasing to 40mg TID 01/16 and ordered 4 doses of Rifaximin for hepatic encephalopathy although patient fairly oriented but short term memory/insight poor. Could give further rifaximin if increase unsuccessful at bringing down ammonia tomorrow * LFTs fluctuating but stable and improving * Declined hepatology work-up in past for cirrhosis ([facility] if needed) as patient DNR and focusing on comfort/quality Ammonia improved today and patient with multiple BMs on 01/17 and decreasing lactulose to 20mg BID and taper until regular and ammonia resolved. Mentating much clearer today -- actually had one point yesterday called 911 as he needed to have a BM Continue to monitor (5) Chronic venous insufficiency: * Stasis changes to b/l LE however with edema/fall and hx afib will get Doppler to r/o DVT * Dopplers NEGATIVE for DVT * Vascular also consulted given plans for outpatient Venaseal to see about getting this done sooner/while inpatient? * --> Plans for outpatient intervention * Was to complete course of doxycycline --> did have dose left. Erythema/cellulitis to LE and put back on Doxy with improvement and would continue course at d/c * CRP, ESR improving and would continue at least 5-7 day course despite cx negative as he was on doxy for total 14 days but did not complete course [employer] * --> SWITCHED TO PO BID to avoid extra fluids on 01/17 (6) Atrial fibrillation: * Not new. * Not on anticoagulation - unclear reason for this although contraindicated with current hematoma --> had issues in past with intraocular bleeding as well as hematuria last admission while on Lovenox * Venous Dopplers 01/14 NEGATIVE for DVT * Rate controlled on no medication (7) HTN (hypertension), benign: * Chronic. BP controlled 103/54 * On lasix/spironolactone as above * Previously on carvedilol, SATNAM in past -- unclear why this was discontinued (8) Obstructive sleep apnea syndrome: * Patient reports not on CPAP at home. * With R sided HF would benefit but patient continues to decline (9) Osteomyelitis of left ankle: * Chronic * No surgical intervention planned. * No antibiotics per [facility] infectious disease - just completed course of Doxycycline for 14 days per wound care (did not complete full course) for MSSA of wound in office * Repeat cx with pin-point growth, re-incubating --> corynebacterium * CRP elevated 6.7, ESR 70 (but could be from age?) --> IMPROVING ON REPEAT * no WBC/afebrile * Placed back on doxy on 01/14, switched to PO 01/17 and would complete 7-10 day course. Continued for erythema which is improved but now some erythema around wound vac as well * Continued wound care while inpatient Palliative consultation undertaken today given LACE score >=11 for goals of care Patient changed to DNR/DNI Dispo: OR today with Dr. Dill for wound vac exchange Will need repeat therapy evals and look back into SNF/rehab at d/c Admission and Anticipated Discharge Date Admission Date: January 08, 2021 Supervising Physician Co-Signing Physician Notes PA Supervision Note: I did not personally see or examine the patient today, but I verified all dupree points of CHLOE Ballesteros's assessment and plan with the following exceptions/additions: none Subjective Patient seen this morning. Still waiting to be taken down to the OR. He states minimal pain, controlled. Multiple BMs yesterday and mentating better today. He is hungry and would like sandwich and fruit when able. Updated last evening. Minimal drainage to wound vac. No fever, chills, chest pain, shortness of breath, abdominal pain, nausea, or vo miting. Review of Systems Review of Systems: All systems reviewed & are unremarkable except as noted in HPI & below Physical Exam Constitutional: + thin and + frail appearing; no acute distress Eyes: + anicteric sclerae and PERRL ENMT: sightly dry mm Neck: trachea midline, no thyromegaly Respiratory: normal respiratory effort; no respiratory distress, no labored breathing, no cough and not tachypneic Auscultation: + diminished lung sounds (bases) and + wheezes (faint end expiratory posterior lung garcia) 90% on RA Cardiovascular: Rate/Rhythm: + irregularly irregular Heart Sounds: normal S1 and normal S2; no murmur Vessels: + JVD Extremities: normal capillary refill and + edema (trace b/l LE); no calf tenderness Gastrointestinal (Abdomen): Inspection/Auscultation: + abdomen distended (less) and normal bowel sounds Percussion/Palpation: abdomen soft (softer); abdomen nontender, no guarding and abdomen not rigid Musculoskeletal: no cyanosis or clubbing, extremities motor strength 5/5 Skin: + dry skin and + ecchymosis (left side of face) Trauma: + hematoma (decreased in size and now with wound vac draining minimal blood tinged flui) some erythema/edema around wound vac site, mild tender to palpation decreased erythema to b/l LE chronic venous stasis changes noted Neurologic: PERRL, EOMI, accommodation nl, no face palsy, no dysarthria moves all extremities and awake Psychiatric: Orientation: alert and oriented x 3 (at times intermittently confused, MUCH better today) Insight: + poor insight Genitourinary: no CVA tenderness Lymphatic: no cervical or axillary lymphadenopathy Results & Data Results & Data ([facility]) Vital Signs (Past 12 Hours) Vital Signs Temp Pulse Pulse Resp BP BP Pulse Ox 01/18/21 08:13 36.9 C 69 18 103/54 L 90 01/18/21 04:00 36.9 C 77 18 107/50 L 90 01/17/21 22:51 36.9 C 68 18 103/49 L 90 Laboratory Results 01/18/21 01/18/21 01/18/21 Range/Units 07:13 07:13 07:13 WBC (4.8-10.8) K/uL RBC (4.7-6.1) M/uL Hgb (14.0-18.0) g/dL Hct (42-52) % MCV (80-100) fL MCH (25-34) pg MCHC (32-36) g/dL RDW Std Deviation (36.4-46.3) fL RDW Coeff of Chel (11.5-14.5) % Plt Count (130-400) K/uL MPV (7.4-10.4) fL PT 13.5 H (9.0-12.0) Seconds INR 1.4 H (0.9-1.1) Sodium 136 (136-145) mmol/L Potassium 3.9 (3.5-5.1) mmol/L Chloride 100 (98-107) mmol/L Carbon Dioxide 31 (21-32) mmol/L Anion Gap 5.0 (3-11) BUN 22 H (7-18) mg/dl Creatinine 0.98 (0.6-1.4) mg/dl Est Cr Clr Drug Dosing 54.8 ml/min Est GFR ( Amer) 80.0 Est GFR (Non-Af Amer) 69.0 BUN/Creatinine Ratio 22.4 H (10-20) Glucose 85 (70-99) mg/dl Calcium 8.3 L (8.5-10.1) mg/dl Total Bilirubin 2.1 H (0.2-1) mg/dl Direct Bilirubin 1.1 H (0-0.2) mg/dl AST 37 (15-37) U/L ALT 20 (12-78) U/L Alkaline Phosphatase 248 H (45-117) U/L Ammonia 39.3 H (11-32) umol/L Total Protein 6.5 (6.4-8.2) gm/dl Albumin 2.5 L (3.4-5.0) gm/dl Blood Type Antibody Screen Crossmatch 01/18/21 01/18/21 01/15/21 Range/Units 07:13 07:13 17:23 WBC 7.28 (4.8-10.8) K/uL RBC 2.88 L (4.7-6.1) M/uL Hgb 8.8 L (14.0-18.0) g/dL Hct 27.6 L (42-52) % MCV 95.8 (80-100) fL MCH 30.6 (25-34) pg MCHC 31.9 L (32-36) g/dL RDW Std Deviation 59.8 H (36.4-46.3) fL RDW Coeff of Chel 17.5 H (11.5-14.5) % Plt Count 264 (130-400) K/uL MPV 8.4 (7.4-10.4) fL PT (9.0-12.0) Seconds INR (0.9-1.1) Sodium (136-145) mmol/L Potassium (3.5-5.1) mmol/L Chloride (98-107) mmol/L Carbon Dioxide (21-32) mmol/L Anion Gap (3-11) BUN (7-18) mg/dl Creatinine (0.6-1.4) mg/dl Est Cr Clr Drug Dosing ml/min Est GFR ( Amer) Est GFR (Non-Af Amer) BUN/Creatinine Ratio (10-20) Glucose (70-99) mg/dl Calcium (8.5-10.1) mg/dl Total Bilirubin (0.2-1) mg/dl Direct Bilirubin (0-0.2) mg/dl AST (15-37) U/L ALT (12-78) U/L Alkaline Phosphatase (45-117) U/L Ammonia (11-32) umol/L Total Protein (6.4-8.2) gm/dl Albumin (3.4-5.0) gm/dl Blood Type O Positive Antibody Screen NEGATIVE Crossmatch See Detail See Detail PG Care Time/CCT Total # of Minutes Spent Total Time Spent with Patient: Total time spent is greater than 50% in coordination of care (as documented) at patient's floor/unit and/or counseling patient: Coding Level of Care Code 64080 Subseq Hosp Care Lvl 3 Diagnoses Hematoma of left lower leg S80.12XA Anemia D64.9 Acute on chronic diastolic (congestive) heart failure I50.33 Hepatic cirrhosis K74.60 Chronic venous insufficiency I87.2 Atrial fibrillation I48.20 Atrial fibrillation type: unspecified chronic HTN (hypertension), benign I10 Obstructive sleep apnea syndrome G47.33 Osteomyelitis of left ankle M86.9 (1) Atrial fibrillation Atrial fibrillation type: unspecified chronic Qualified Code(s): I48.20 - Chronic atrial fibrillation, unspecified
[2021-01-18] MEDS ORDERED: fentaNYL citrate 100 MCG/2 ML VIAL ONE (13:53)
[2021-01-18] MEDS ORDERED: LIDOCAINE HCL 2% 2 ML VIAL/AMP(20MG/ML) INFIL ONE (13:54)
[2021-01-18] MEDS ORDERED: PROPOFOL IV EMULSION 10 MG/ML 20 ML VIAL IV ONE (13:54)
--- NOTE | 2021-01-18 14:54 | Post Operative Brief Note ---
Immediate Post Op Note v1 Date of Surgery January 18, 2021 Pre & Post Diagnosis Operation Date: 01/18/21 13:20 Pre-Op Diagnosis: Left leg hematoma Post-Op Diagnosis: Left leg hematoma I identified the patient and participated in the time-out.: Yes Procedure Operation Date: 01/18/21 13:20 Actual Procedures p Left Incision and Drainage Thigh with wound Vac Change(Left) - Baltazar Dill MD Surgeon Baltazar Dill MD Medical Collections Mickey Ritchie MD Estimated Blood Loss 2 Findings Consistent with Post-Op Diagnosis Fluids 250 cc Anesthesia Type MAC Complications none
--- NOTE | 2021-01-18 14:59 | Operative Report ---
Post Operative Report Pre & Post Diagnosis Operation Date: 01/18/21 13:20 Pre-Op Diagnosis: Left leg hematoma, WoundVac Post-Op Diagnosis: Left leg hematoma, WoundVac I identified the patient and participated in the time-out.: Yes Procedure Operation Date: 01/18/21 13:20 Actual Procedures p Left Incision and Drainage Thigh with wound Vac Change(Left) - Baltazar Dill MD Surgeon Baltazar Dill MD Student Life Vice President Mickey Ritchie MD Estimated Blood Loss 2 Findings See Below Wound: Length 30 cm x 14 cm Width, down to Muscle. Incision 14 cm in length. No evidence of infection. Inferior thigh near distal aspect of incision is a small pressure sore approximately size of a quarter. Fluids 250 cc Specimens n/a Anesthesia Type MAC Complications none Indications Patient status post I&D of the left leg wound by Dr. Blackmon, who is out of town and I am covering. The patient has a large wound on the anterior thigh, full-thickness from the subcutaneous down to the fascia, that is being treated with wound Vac. Informed consent obtained for planned return to OR for I&D, wound VAC exchange. Description of Procedure The patient was taken to the Operating Room and after sufficient sedation was administered a multidisciplinary time-out was performed identifying my initials on the left limb as the correct and operative limb, the patient was placed in the supine position on the operating table. The patient is continuing his antibiotic regime. The left lower leg was prepped and draped in the standard sterile fashion. Preoperative antibiotics were not necessary. The wound VAC was removed along with the sutures. The VAC sponges removed. There was no bleeding. There was early granulation present throughout the wound. There was no purulence noted and no necrotic tissue. The wound was irrigated with normal saline. A new black sponge was applied. There was no purulence noted and no necrotic tissue. The sponge was cut down in size and placed to try and reduce the volume. The wound VAC was applied and deployed without incident. The patient was taken recovery room in stable condition. The sponge and needle counts were correct. POST-OP: Patient was re-admitted to the hospital. Plan to return 01/21/21 for repeat I&D with exchange the wound VAC. I attest to the content of the Intraoperative Record and any orders documented therein. Any exceptions are noted below.
--- NOTE | 2021-01-18 15:24 | Anesthesiology Progress Note ---
Date of Service January 18, 2021 Anesthesia Post Procedure Vital Signs Vital Signs: Temp Pulse Pulse Resp BP BP Pulse Ox 01/18/21 15:20 36.7 C 63 12 97/48 L 94 01/18/21 15:10 59 L 16 111/60 98 01/18/21 15:02 37 C 70 16 101/60 97 01/18/21 13:43 36.9 C 61 18 105/48 L 92 01/18/21 08:13 36.9 C 69 18 103/54 L 90 01/18/21 04:00 36.9 C 77 18 107/50 L 90 01/17/21 22:51 36.9 C 68 18 103/49 L 90 01/17/21 19:15 36.9 C 56 L 18 123/63 91 01/17/21 15:31 36.6 C 71 16 99/54 L 92 Pain Intensity Left Thigh: Pain Intensity: 3 Left Leg: Pain Intensity: 4 Transfer of Care Handoff Completed per policy Notes Mental Status: alert / awake / arousable Patient Amnestic to Procedure: Yes Nausea / Vomiting: adequately controlled Pain: adequately controlled Airway Patency, RR, SpO2: stable & adequate BP & HR: stable & adequate Hydration State: stable & adequate Anesthetic Complications: no major complications apparent
[2021-01-18] MEDS: LACTULOSE SYRUP 20 GM/30 ML UDC PO SCH (20:48)
[2021-01-19 05:40] LABS: Hematocrit (blood only) 28.2 % (42-52); Mean Corpuscular Hemoglobin 30.5 pg (25-34); Mean Corpuscular Hgb Conc 31.9 g/dL (32-36); Mean Corpuscular Volume 95.6 fL (80-100); Mean Platelet Volume 8.3 fL (7.4-10.4); Platelet Count 269 K/uL (130-400); RDW Coefficient of Variation 17.6 % (11.5-14.5); RDW Standard Deviation 59.9 fL (36.4-46.3); Red Blood Count 2.95 M/uL (4.7-6.1); White Blood Count 6.83 K/uL (4.8-10.8)
[2021-01-19 05:55] LABS: Albumin Level 2.5 gm/dl (3.4-5.0); BUN Creatinine Ratio 23.1 (10-20); Bilirubin Direct 1.2 mg/dl (0-0.2); Calcium 8.4 mg/dl (8.5-10.1); Creatinine Clr Calc Pharmacy 51.7 ml/min; Est GFR (African American) 74.5; Est GFR (Non-African American) 64.3; Potassium 4.4 mmol/L (3.5-5.1)
[2021-01-19 05:57] LABS: Total Protein 6.8 gm/dl (6.4-8.2)
[2021-01-19] MEDS: FUROSEMIDE 40 MG in SYRINGE 0 ML IV SCH (07:54)
[2021-01-19] MEDS: DOXYCYCLINE HYCLATE 100 MG CAP PO SCH ×2 (07:55→20:46)
[2021-01-19] MEDS: SPIRONOLACTONE 100 MG TAB PO SCH (07:55)
[2021-01-19] MEDS: LACTULOSE SYRUP 20 GM/30 ML UDC PO SCH ×2 (07:55→20:46)
--- NOTE | 2021-01-19 09:47 | Hospitalist Progress Note ---
Date of Service January 19, 2021 Assessment & Plan (1) Hematoma of left lower leg: Secondary to fall on rug at home. CT LEFT Femur on admission with hematoma measures approximately 30 x 11 x 7.5 cm MRI with enlargement of hematoma on 01/14 to 31.7 x 12.5 x 7.[address] of January 08, 2021. Orthopedics consulted, Dr. Blackmon POD #3 S/P I&D LEFT THIGH HEMATOMA 01/[address] Blackmon. EBL 25cc. * INR was 1.4 -- ordered 2 units FFP prior to surgery (given) and 10mg Vit K evening 01/15 * Per operative report, 1000cc large loculated hematoma evacuated and wound vac placed * D/c'd IVF as ordered by orthopedics given patient with active HF and requiring diuresis and tolerating diet without issue POD#1 s/p wound vac exchange on 01/[address] Dill. Tolerated well and size decreased with granulation tissue throughout without clot. * Zarate placed and will get more accurate I&O however weights still inaccurate * --> Continuing lasix 40mg IV daily (WEIGHT NOW FINALLY 71.7kg/157lb down from 74.6kg on admission) and will continue for tomorrow and continue to monitor ( dry weight closer to 148lb per CHF clinic) * --> initial plans for repeat wound vac exchanges 01/21, 01/23 planned but will see how repeat exchanges go as output sign decreased. * h/h stable Anemia secondary to hematoma * Iron studies with : * -->iron 27L, TIBC 312/ferritin 113 wnl, trans % sat low 10, transferrin low 193. * --> Venofer IV given 01/15 and 01/17. Will give another dose this afternoon and possible start oral supplementation at discharge but cautious with constipation if needed (but will have gotten 3 doses IV so could hold off) * h/h stable 9.0/28.2 and improving * Repeat CBC in AM Will need repeat therapy evals to see about SNF given prior denial and was deemed at baseline. Given above, anticipate no issues with getting approval (2) Anemia: * See above, secondary to #1 * Would place on PO iron once constipation resolved given iron low at 27, trans sat % 10L, transferrin 193L, TIBC wnl at 312 and ferritin 113 * Venofer x 1 on 01/15, 01/17 and again today * 2 units PRBC prior to surgery and 1 unit PRBC given with surgery on 01/16 * H/h improving as above and will continue to monitor (3) Acute on chronic diastolic (congestive) heart failure: * due to RIGHT SIDED HEART FAILURE/CIRRHOSIS * -- secondary to medication non-compliance/cognitive decline. * Was on Lasix 40mg QOD during admission but was on daily dose with 100mg spironolactone * BNP 3798 on 01/14 * ECHO with evidence for volume overload with elevated RVSP * Would not place on IVF as previously ordered by ortho in patient with active diastolic HF * WEIGHT NOW FINALLY 71.7kg/157lb down from 74.6kg on admission on 01/14(67.7kg baseline "dry weight" but told PA at CHF clinic feels better around 160lb) * Continues on Lasix 40mg IV daily in addition to 100mg spironolactone daily for now * 90% on room air and kidney function stable. * Would anticipate transitioning to use usual 40mg PO daily once closer to dry weight * Continue to monitor (4) Hepatic cirrhosis: * Unclear whether the patient is taking spironolactone or furosemide at the current time. * --> Lungs with wheezing and noted cough. * He noted he had been taking diuretics at discharge last admission "took until they were completed" implying that he had no refills and this was reason to not be continued on these medications * --> stated he is confused and had been taking both of these medications daily * Restarted Lasix and spironolactone as above * Ammonia further elevated to 59 and was given lactulose with BM on 01/15 (first since 01/09 and likely contributing to confusion as well) * Placed on Lactulose 20mg and increased to TID --> increasing to 40mg TID 01/16 and ordered 4 doses of Rifaximin for hepatic encephalopathy although patient fairly oriented but short term memory/insight poor. * Further rifaximin given for another couple doses and mentation improving but no BM and ammonia elevated without BM since 01/17 and will increase dosing back to TID to see if effective but may need to increase to 40mg dose as previously effective * LFTs fluctuating but stable and improving and will get RUQ US for further eval * Declined hepatology work-up in past for cirrhosis ([facility] if needed) as patient DNR and focusing on comfort/quality (5) Chronic venous insufficiency: * Stasis changes to b/l LE however with edema/fall and hx afib will get Doppler to r/o DVT * Dopplers NEGATIVE for DVT * Vascular also consulted given plans for outpatient Venaseal to see about getting this done sooner/while inpatient? * --> Plans for outpatient intervention * Was to complete course of doxycycline --> did have dose left. 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 * Not on anticoagulation - unclear reason for this although contraindicated with current hematoma --> had issues in past with intraocular bleeding as well as hematuria last admission while on Lovenox * Venous Dopplers 01/14 NEGATIVE for DVT * Rate controlled on no medication (7) HTN (hypertension), benign: * Chronic. BP controlled 115/67 and improves with diuresis as above * On lasix/spironolactone as above * Previously on carvedilol, SATNAM in past -- unclear why this was discontinued (8) Obstructive sleep apnea syndrome: * Patient reports not on CPAP at home. * With R sided HF would benefit but patient continues to decline (9) Osteomyelitis of left ankle: * Chronic * No surgical intervention planned. * No antibiotics per [facility] infectious disease - just completed course of Doxycycline for 14 days per wound care (did not complete full course) for MSSA of wound in office * Repeat cx with pin-point growth, re-incubating --> corynebacterium * CRP elevated 6.7, ESR 70 (but could be from age?) --> IMPROVING ON REPEAT * no WBC/afebrile * Placed back on doxy on 01/14, switched to PO 01/17 and would complete 7-10 day course. Continued for erythema which is improved but now some erythema around wound vac as well * Continued wound care while inpatient Palliative consultation undertaken given LACE score >=11 for goals of care Patient changed to DNR/DNI Dispo: continued inpatient stay wound vac exchange on 01/[address] for repeat PT/OT evals Will need repeat therapy evals and look back into SNF/rehab at d/c Admission and Anticipated Discharge Date Admission Date: January 08, 2021 Supervising Physician Co-Signing Physician Notes PA Supervision Note: I did not personally see or examine the patient today, but I verified all dupree points of CHLOE Ballesteros's assessment and plan with the following exceptions/additions: none Subjective Patient evaluated this morning. He states his pain to his thigh will treat as mild on pain scale. He notes that he has not had a bowel movement since yesterday and will resume lactulose. Breathing stable. No abdominal pain.. Hungry for lunch but does not want "massive lunch" and requesting half sandwich and soup for lunch today. Will call kitchen. Discussed kidney function stable and we will continue to diureses with IV lasix at least for now until closer to dry weight. Plans for repeat exchange Thursday and discussed Dr. Lopez will be back on service and familiar with his case. He is happy with current care and expressed thankful for continued care during his hospitalization. No fever, chill, chest pain, shortness of breath, cough, abdominal pain, nausea, vomiting, or other pain at this time. Review of Systems Review of Systems: All systems reviewed & are unremarkable except as noted in HPI & below Physical Exam Constitutional: + thin and + frail appearing; no acute distress Eyes: + anicteric sclerae and PERRL ENMT: Ears: no hearing impairment Neck: trachea midline, no thyromegaly Respiratory: normal respiratory effort; no respiratory distress, no labored breathing, no cough and not tachypneic Auscultation: + diminished lung sounds (bases) and + wheezes (faint end expiratory posterior lung garcia) Cardiovascular: Rate/Rhythm: + irregularly irregular Heart Sounds: normal S1 and normal S2; no murmur Vessels: + JVD Extremities: normal capillary refill and + edema (trace b/l LE); no calf tenderness Gastrointestinal (Abdomen): Inspection/Auscultation: + abdomen distended (less) and normal bowel sounds Percussion/Palpation: abdomen soft (softer); abdomen nontender, no guarding and abdomen not rigid Musculoskeletal: no cyanosis or clubbing, extremities motor strength 5/5 Skin: + dry skin and + ecchymosis (left side of face) Trauma: + hematoma (decreased in size and now with wound vac draining 100cc blood tinged flui) also has small blistered area approx 2cm proximal to left thigh dressing non-tender, no purulant drainage Neurologic: PERRL, EOMI, accommodation nl, no face palsy, no dysarthria moves all extremities and awake Psychiatric: Orientation: alert and oriented x 3 (at times intermittently confused but appears more oriented than days past) Insight: + poor insight Genitourinary: no CVA tenderness zarate draining darkened urine Results & Data Results & Data ([facility]) Vital Signs (Past 12 Hours) Vital Signs Temp Pulse Resp BP Pulse Ox 01/19/21 08:46 36.8 C 73 18 115/67 90 01/19/21 04:01 36.8 C 63 14 110/53 L 92 01/18/21 23:31 36.9 C 70 14 110/69 92 Laboratory Results 01/19/21 01/19/21 01/19/21 Range/Units 05:24 05:24 05:24 WBC 6.83 (4.8-10.8) K/uL RBC 2.95 L (4.7-6.1) M/uL Hgb 9.0 L (14.0-18.0) g/dL Hct 28.2 L (42-52) % MCV 95.6 (80-100) fL MCH 30.5 (25-34) pg MCHC 31.9 L (32-36) g/dL RDW Std Deviation 59.9 H (36.4-46.3) fL RDW Coeff of Chel 17.6 H (11.5-14.5) % Plt Count 269 (130-400) K/uL MPV 8.3 (7.4-10.4) fL Sodium 137 (136-145) mmol/L Potassium 4.4 (3.5-5.1) mmol/L Chloride 101 (98-107) mmol/L Carbon Dioxide 33 H (21-32) mmol/L Anion Gap 3.0 (3-11) BUN 24 H (7-18) mg/dl Creatinine 1.04 (0.6-1.4) mg/dl Est Cr Clr Drug Dosing 51.7 ml/min Est GFR ( Amer) 74.5 Est GFR (Non-Af Amer) 64.3 BUN/Creatinine Ratio 23.1 H (10-20) Glucose 89 (70-99) mg/dl Calcium 8.4 L (8.5-10.1) mg/dl Total Bilirubin 2.0 H (0.2-1) mg/dl Direct Bilirubin 1.2 H (0-0.2) mg/dl AST 34 (15-37) U/L ALT 20 (12-78) U/L Alkaline Phosphatase 248 H (45-117) U/L Ammonia 52.0 H (11-32) umol/L Total Protein 6.8 (6.4-8.2) gm/dl Albumin 2.5 L (3.4-5.0) gm/dl PG Care Time/CCT Total # of Minutes Spent Total Time Spent with Patient: Total time spent is greater than 50% in coordination of care (as documented) at patient's floor/unit and/or counseling patient: Coding Level of Care Code 22231 Subseq Hosp Care Lvl 3 Diagnoses Hematoma of left lower leg S80.12XA Anemia D64.9 Acute on chronic diastolic (congestive) heart failure I50.33 Hepatic cirrhosis K74.60 Chronic venous insufficiency I87.2 Atrial fibrillation I48.20 Atrial fibrillation type: unspecified chronic HTN (hypertension), benign I10 Obstructive sleep apnea syndrome G47.33 Osteomyelitis of left ankle M86.9 (1) Atrial fibrillation Atrial fibrillation type: unspecified chronic Qualified Code(s): I48.20 - Chronic atrial fibrillation, unspecified
--- NOTE | 2021-01-19 10:30 | Orthopedic Progress Note ---
Date of Service January 19, 2021 Assessment & Plan (1) Hematoma of left thigh: HD # 12, L thigh infection, s/p multiple I&D and wound Vac placement for large left thigh wound. POD # 1 s/p I&D and wound Vac exchange left thigh. Continue wound vac left thigh Continue Antibiotics Continue diet. NPO p MN - plan for wound vac change in the OR 01/21/[address] Dill Ice and elevation PRN swelling/pain Allowed for full ROM left leg, WBAT with walker. PT/OT as ordered Continue care per primary service. Will continue to follow. Continue covering for Dr. Blackmon who is out of town. Present on Admission?: Yes Admission and Anticipated Discharge Date Admission Date: January 08, 2021 Subjective doing well Review of Systems Review of Systems: All systems reviewed & are unremarkable except as noted in HPI & below Physical Exam Physical Exam: LLE: Wound Vac in place, functioning well. Calf soft and non- tender. Neurovascularly intact. Results & Data ([facility]) Vital Signs (Past 12 Hours) Vital Signs Temp Pulse Resp BP Pulse Ox 01/19/21 08:46 36.8 C 73 18 115/67 90 01/19/21 04:01 36.8 C 63 14 110/53 L 92 01/18/21 23:31 36.9 C 70 14 110/69 92 Laboratory Results 01/19/21 01/19/21 01/19/21 Range/Units 05:24 05:24 05:24 WBC 6.83 (4.8-10.8) K/uL RBC 2.95 L (4.7-6.1) M/uL Hgb 9.0 L (14.0-18.0) g/dL Hct 28.2 L (42-52) % MCV 95.6 (80-100) fL MCH 30.5 (25-34) pg MCHC 31.9 L (32-36) g/dL RDW Std Deviation 59.9 H (36.4-46.3) fL RDW Coeff of Chel 17.6 H (11.5-14.5) % Plt Count 269 (130-400) K/uL MPV 8.3 (7.4-10.4) fL Sodium 137 (136-145) mmol/L Potassium 4.4 (3.5-5.1) mmol/L Chloride 101 (98-107) mmol/L Carbon Dioxide 33 H (21-32) mmol/L Anion Gap 3.0 (3-11) BUN 24 H (7-18) mg/dl Creatinine 1.04 (0.6-1.4) mg/dl Est Cr Clr Drug Dosing 51.7 ml/min Est GFR ( Amer) 74.5 Est GFR (Non-Af Amer) 64.3 BUN/Creatinine Ratio 23.1 H (10-20) Glucose 89 (70-99) mg/dl Calcium 8.4 L (8.5-10.1) mg/dl Total Bilirubin 2.0 H (0.2-1) mg/dl Direct Bilirubin 1.2 H (0-0.2) mg/dl AST 34 (15-37) U/L ALT 20 (12-78) U/L Alkaline Phosphatase 248 H (45-117) U/L Ammonia 52.0 H (11-32) umol/L Total Protein 6.8 (6.4-8.2) gm/dl Albumin 2.5 L (3.4-5.0) gm/dl (1) Hematoma of left thigh Encounter type: initial encounter Qualified Code(s): S70.12XA - Contusion of left thigh, initial encounter
[2021-01-19] MEDS ORDERED: IRON SUCROSE 200 MG in 0.9 % SODIUM CHLORIDE 100 ML IV ONE (12:30)
[2021-01-19] MEDS ORDERED: LACTULOSE SYRUP 20 GM/30 ML UDC PO SCH (14:00)
--- NOTE | 2021-01-20 00:02 | Ultrasound Report ---
ULTRASOUND RIGHT UPPER QUADRANT ABDOMEN CLINICAL HISTORY: Elevated bilirubin and alkaline phosphatase. COMPARISON STUDY: Abdominal CT dated 12/01/2020. TECHNIQUE: Real-time, grayscale, and color flow sonography of the right upper quadrant of the abdomen was performed. Images are reviewed in the transverse and longitudinal planes. FINDINGS: Liver: The liver is cirrhotic in morphology and heterogeneous in echotexture. There is nodularity of the surface contour. There is no intrahepatic biliary ductal dilatation. The main portal vein is holloway nt. Gallbladder: Focal adenomyomatosis is noted in the fundal region. The gallbladder is normal in appear ance. No gallstones are identified. The gallbladder wall is top normal in thickness measuring up to 3 mm. This is likely related to adjacent hepatocellular disease. No pericholecystic fluid is seen. A s onographic Mata's sign is reportedly absent. The common bile duct measures up to 0.3 cm in diameter . Pancreas: Not visualized due to overlying bowel gas. Right kidney: Survey images of the right kidney demonstrate normal size and echotexture. There is no hydronephrosis. Ascites: There is trace perihepatic ascites. IMPRESSION: 1. Cirrhotic liver morphology. 2. Trace perihepatic ascites. 3. No gallstones are identified and there is no sonographic evidence of acute cholecystitis. ACT 112: Negative or not required by law. Electronically signed by: Braulio Villalobos M.D. 01/20/2021 12:01 AM
[2021-01-20 05:52] LABS: Hematocrit (blood only) 28.6 % (42-52); Hemoglobin 9.1 g/dL (14.0-18.0); Mean Corpuscular Hemoglobin 30.5 pg (25-34); Mean Corpuscular Hgb Conc 31.8 g/dL (32-36); Mean Platelet Volume 8.5 fL (7.4-10.4); Platelet Count 261 K/uL (130-400); RDW Coefficient of Variation 18.4 % (11.5-14.5); RDW Standard Deviation 62.2 fL (36.4-46.3); Red Blood Count 2.98 M/uL (4.7-6.1); White Blood Count 6.43 K/uL (4.8-10.8)
[2021-01-20 06:29] LABS: Albumin Level 2.5 gm/dl (3.4-5.0); BUN Creatinine Ratio 21.4 (10-20); Bilirubin Direct 1.1 mg/dl (0-0.2); Calcium 8.4 mg/dl (8.5-10.1); Est GFR (African American) 72.8; Est GFR (Non-African American) 62.8
[2021-01-20 06:32] LABS: Bilirubin,Total 1.8 mg/dl (0.2-1); Total Protein 6.8 gm/dl (6.4-8.2)
[2021-01-20] MEDS: FUROSEMIDE 40 MG in SYRINGE 0 ML IV SCH (07:58)
[2021-01-20] MEDS: LACTULOSE SYRUP 20 GM/30 ML UDC PO SCH (07:58)
[2021-01-20] MEDS: SPIRONOLACTONE 100 MG TAB PO SCH (07:59)
[2021-01-20] MEDS: DOXYCYCLINE HYCLATE 100 MG CAP PO SCH ×2 (07:59→20:00)
--- NOTE | 2021-01-20 08:07 | Orthopedic Progress Note ---
Date of Service January 20, 2021 Assessment & Plan (1) Hematoma of left thigh: HD # 13, L thigh infection, s/p multiple I&D and wound Vac placement for large left thigh wound. POD # 2 s/p I&D and wound Vac exchange left thigh. Continue wound vac left thigh Continue Antibiotics Continue diet. NPO p MN tonight - plan for wound vac change in the OR 01/21/2021 Informed consent signed. Ice and elevation PRN swelling/pain Allowed for full ROM left leg, WBAT with walker. PT/OT as ordered Continue care per primary service. Will continue to follow. Continue covering for Dr. Blackmon who is out of town. Admission and Anticipated Discharge Date Admission Date: January 08, 2021 Subjective Doing alright Review of Systems Review of Systems: All systems reviewed & are unremarkable except as noted in HPI & below Physical Exam Physical Exam: LLE: Wound Vac in place, functioning well. Calf soft and non- tender. Neurovascularly intact. Results & Data ([facility]) Vital Signs (Past 12 Hours) Vital Signs Temp Pulse Resp BP Pulse Ox 01/19/21 23:24 37.0 C 57 L 14 102/58 L 92 Laboratory Results 01/20/21 01/20/21 01/20/21 Range/Units 05:17 05:17 05:17 WBC 6.43 (4.8-10.8) K/uL RBC 2.98 L (4.7-6.1) M/uL Hgb 9.1 L (14.0-18.0) g/dL Hct 28.6 L (42-52) % MCV 96.0 (80-100) fL MCH 30.5 (25-34) pg MCHC 31.8 L (32-36) g/dL RDW Std Deviation 62.2 H (36.4-46.3) fL RDW Coeff of Chel 18.4 H (11.5-14.5) % Plt Count 261 (130-400) K/uL MPV 8.5 (7.4-10.4) fL Sodium 137 (136-145) mmol/L Potassium 4.0 (3.5-5.1) mmol/L Chloride 101 (98-107) mmol/L Carbon Dioxide 31 (21-32) mmol/L Anion Gap 5.0 (3-11) BUN 23 H (7-18) mg/dl Creatinine 1.06 (0.6-1.4) mg/dl Est Cr Clr Drug Dosing 50.0 ml/min Est GFR ( Amer) 72.8 Est GFR (Non-Af Amer) 62.8 BUN/Creatinine Ratio 21.4 H (10-20) Glucose 92 (70-99) mg/dl Calcium 8.4 L (8.5-10.1) mg/dl Total Bilirubin 1.8 H (0.2-1) mg/dl Direct Bilirubin 1.1 H (0-0.2) mg/dl AST 38 H (15-37) U/L ALT 22 (12-78) U/L Alkaline Phosphatase 241 H (45-117) U/L Ammonia 58.0 H (11-32) umol/L Total Protein 6.8 (6.4-8.2) gm/dl Albumin 2.5 L (3.4-5.0) gm/dl (1) Hematoma of left thigh Encounter type: initial encounter Qualified Code(s): S70.12XA - Contusion of left thigh, initial encounter
--- NOTE | 2021-01-20 09:49 | Hospitalist Progress Note ---
Date of Service January 20, 2021 Assessment & Plan (1) Hematoma of left lower leg: Secondary to fall on rug at home. CT LEFT Femur on admission with hematoma measures approximately 30 x 11 x 7.5 cm MRI with enlargement of hematoma on 01/14 to 31.7 x 12.5 x 7.[address] of January 08, 2021. Orthopedics consulted, Dr. Blackmon POD #4 S/P I&D LEFT THIGH HEMATOMA 01/[address] Blackmon. EBL 25cc. * INR was 1.4 -- ordered 2 units FFP prior to surgery (given) and 10mg Vit K evening 01/15 * Per operative report, 1000cc large loculated hematoma evacuated and wound vac placed * D/c'd IVF as ordered by orthopedics given patient with active HF and requiring diuresis and tolerating diet without issue POD#2 s/p wound vac exchange on 01/[address] Dill. Tolerated well and size decreased with granulation tissue throughout without clot. * Zarate placed and will get more accurate I&O however weights still inaccurate * --> Continuing lasix 40mg IV daily (WEIGHT NOW FINALLY 72kg/157lb down from 74.6kg on admission) and will continue for tomorrow and continue to monitor (dry weight closer to 148lb per CHF clinic) * --> initial plans for repeat wound vac exchanges 01/21, 01/23 planned but will see how repeat exchanges go as output sign decreased. NPO after midnight for repeat exchange in OR 01/21 Anemia secondary to hematoma * Iron studies with : * -->iron 27L, TIBC 312/ferritin 113 wnl, trans % sat low 10, transferrin low 193. * --> Venofer IV given 01/15 and 01/17 and 01/19 * h/h 9.10/25.6 Will need repeat therapy evals to see about SNF given prior denial and was deemed at baseline. Given above, anticipate no issues with getting approval (2) Anemia: * See above, secondary to #1 * Would place on PO iron once constipation resolved given iron low at 27, trans sat % 10L, transferrin 193L, TIBC wnl at 312 and ferritin 113 * Venofer x 1 on 01/15, 01/17, 01/19 * 2 units PRBC prior to surgery and 1 unit PRBC given with surgery on 01/16 * H/h improving as above and will continue to monitor (3) Acute on chronic diastolic (congestive) heart failure: * due to RIGHT SIDED HEART FAILURE/CIRRHOSIS * -- secondary to medication non-compliance/cognitive decline. * Was on Lasix 40mg QOD during admission but was on daily dose with 100mg spironolactone * BNP 3798 on 01/14 * ECHO with evidence for volume overload with elevated RVSP * Would not place on IVF as previously ordered by ortho in patient with active diastolic HF * WEIGHT NOW FINALLY 71.7kg/157lb down from 74.6kg on admission on 01/14(67.7kg baseline "dry weight" but told PA at CHF clinic feels better around 160lb) * Continues on Lasix 40mg IV daily in addition to 100mg spironolactone daily for now * 90% on room air and kidney function stable. * Would anticipate transitioning to use usual 40mg PO daily once closer to dry weight * Continue to monitor * would remove Zarate after surgery on Thursday for trial of void (4) Hepatic cirrhosis: * Unclear whether the patient is taking spironolactone or furosemide at the current time. * --> Lungs with wheezing and noted cough. * He noted he had been taking diuretics at discharge last admission "took until they were completed" implying that he had no refills and this was reason to not be continued on these medications * --> stated he is confused and had been taking both of these medications daily * Restarted Lasix and spironolactone as above * Further rifaximin given for another couple doses and mentation improving but no BM and ammonia elevated without BM since 01/17 and increased dosing back to 40mg TID with MULTIPLE BM 01/19 --01/20 and will decrease to daily * LFTs fluctuating but stable and improving and will get RUQ US for further eval * ->> RUQ US with cirrhosis but no pericholecystic fluid or evidence of acute austin. * Tbili 1.8 (peak 4), direct 1.1 (peak 1.4), AST 38, ALT 22, Alk phos 241. Ammonia 58 (although had multiple BM this morning as above) * Declined hepatology work-up in past for cirrhosis ([facility] if needed) as patient DNR and focusing on comfort/quality (5) Chronic venous insufficiency: * Stasis changes to b/l LE however with edema/fall and hx afib will get Doppler to r/o DVT * Dopplers NEGATIVE for DVT * Vascular also consulted given plans for outpatient Venaseal to see about getting this done sooner/while inpatient? * --> Plans for outpatient intervention * Was to complete course of doxycycline --> did have dose left. Erythema/cellulitis to LE and put back on Doxy with improvement and would continue course at d/c * CRP, ESR improving and would continue at least 5-7 day course despite cx negative as he was on doxy for total 14 days but did not complete course SHIPPING WEIGHER * --> SWITCHED TO PO BID to avoid extra fluids on 01/17 (6) Atrial fibrillation: * Not new. * Not on anticoagulation - unclear reason for this although contraindicated with current hematoma --> had issues in past with intraocular bleeding as well as hematuria last admission while on Lovenox * Venous Dopplers 01/14 NEGATIVE for DVT * Rate controlled on no medication (7) HTN (hypertension), benign: * Chronic. BP controlled 110/51 and continues to tolerate diuresis * On lasix/spironolactone as above * Previously on carvedilol, SATNAM in past -- unclear why this was discontinued (8) Obstructive sleep apnea syndrome: * Patient reports not on CPAP at home. * With R sided HF would benefit but patient continues to decline (9) Osteomyelitis of left ankle: * Chronic * No surgical intervention planned. * [facility] - just completed course of Doxycycline for 14 days per wound care (did not complete full course) for MSSA of wound in office * Repeat cx with pin-point growth, re-incubating --> corynebacterium * CRP elevated 6.7, ESR 70 (but could be from age?) --> IMPROVING ON REPEAT * no WBC/afebrile * Placed back on doxy on 01/14, switched to PO 01/17 and would complete 7-10 day course. Continued for erythema which is improved but now some erythema around wound vac as well * Continued wound care while inpatient Palliative consultation undertaken given LACE score >=11 for goals of care Patient changed to DNR/DNI Dispo: continued inpatient stay, NPO after midnight wound vac exchange on 01/[address] for repeat PT/OT evals --> PT eval for 01/20 today with recs for SNF. -- given prior denial, but change in condition would anticipate patient able to go. Will need repeat therapy evals and look back into SNF/rehab at d/c Admission and Anticipated Discharge Date Admission Date: January 08, 2021 Supervising Physician Co-Signing Physician Notes PA Supervision Note: I did not personally see or examine the patient today, but I verified all dupree points of CHLOE Ballesteros's assessment and plan with the following exceptions/additions: none Subjective Patient evaluated this morning. Doing well but a little whipped out from multiple bowel movements last evening and this morning and wanting to rest at this time. Weight 158 lb today and continues to improve and will continue IV lasix for today and switch to PO after tomorrow if weight closer to dry weight/kidney function tolerates. Tolerable pain to left thigh, drainage decreased. Repeat wound vac exchange tomorrow. No fever, chills, chest pain, shortness of breath, abdominal pain or nausea at this time. Review of Systems Review of Systems: All systems reviewed & are unremarkable except as noted in HPI & below Physical Exam Constitutional: + thin and + frail appearing; no acute distress Eyes: + anicteric sclerae and PERRL ENMT: Ears: no hearing impairment Neck: trachea midline, no thyromegaly Respiratory: normal respiratory effort; no respiratory distress, no labored breathing, no cough and not tachypneic Auscultation: + diminished lung sounds (bases) Cardiovascular: Rate/Rhythm: + irregularly irregular Heart Sounds: normal S1 and normal S2; no murmur Vessels: + JVD Extremities: normal capillary refill and + edema (trace b/l LE); no calf tenderness chronic venous stasis changes Gastrointestinal (Abdomen): Inspection/Auscultation: normal bowel sounds; abdomen not distended Percussion/Palpation: abdomen soft (softer); abdomen nontender, no guarding and abdomen not rigid Musculoskeletal: no cyanosis or clubbing, extremities motor strength 5/5 Skin: + dry skin and + ecchymosis (left side of face) Trauma: + hematoma (decreased in size and now with wound vac draining 100cc blood tinged flui) L thigh with wound vac, intact and functioning blood tinged drainage noted NVI pulses palpable bilaterally Neurologic: PERRL, EOMI, accommodation nl, no face palsy, no dysarthria moves all extremities and awake Psychiatric: Orientation: alert and oriented x 3 (tired today ) Insight: + poor insight Genitourinary: no CVA tenderness zarate draining yellow urine Lymphatic: no cervical or axillary lymphadenopathy Results & Data Results & Data ([facility]) Vital Signs (Past 12 Hours) Vital Signs Temp Pulse Resp BP Pulse Ox 01/20/21 08:40 36.7 C 56 L 16 110/51 L 90 01/19/21 23:24 37.0 C 57 L 14 102/58 L 92 Laboratory Results 01/20/21 01/20/21 01/20/21 Range/Units 05:17 05:17 05:17 WBC 6.43 (4.8-10.8) K/uL RBC 2.98 L (4.7-6.1) M/uL Hgb 9.1 L (14.0-18.0) g/dL Hct 28.6 L (42-52) % MCV 96.0 (80-100) fL MCH 30.5 (25-34) pg MCHC 31.8 L (32-36) g/dL RDW Std Deviation 62.2 H (36.4-46.3) fL RDW Coeff of Chel 18.4 H (11.5-14.5) % Plt Count 261 (130-400) K/uL MPV 8.5 (7.4-10.4) fL Sodium 137 (136-145) mmol/L Potassium 4.0 (3.5-5.1) mmol/L Chloride 101 (98-107) mmol/L Carbon Dioxide 31 (21-32) mmol/L Anion Gap 5.0 (3-11) BUN 23 H (7-18) mg/dl Creatinine 1.06 (0.6-1.4) mg/dl Est Cr Clr Drug Dosing 50.0 ml/min Est GFR ( Amer) 72.8 Est GFR (Non-Af Amer) 62.8 BUN/Creatinine Ratio 21.4 H (10-20) Glucose 92 (70-99) mg/dl Calcium 8.4 L (8.5-10.1) mg/dl Total Bilirubin 1.8 H (0.2-1) mg/dl Direct Bilirubin 1.1 H (0-0.2) mg/dl AST 38 H (15-37) U/L ALT 22 (12-78) U/L Alkaline Phosphatase 241 H (45-117) U/L Ammonia 58.0 H (11-32) umol/L Total Protein 6.8 (6.4-8.2) gm/dl Albumin 2.5 L (3.4-5.0) gm/dl Diagnostic Findings Gallbladder Ultrasound 01/19/21 11:30 ULTRASOUND RIGHT UPPER QUADRANT ABDOMEN CLINICAL HISTORY: Elevated bilirubin and alkaline phosphatase. COMPARISON STUDY: Abdominal CT dated 12/01/2020. TECHNIQUE: Real-time, grayscale, and color flow sonography of the right upper quadrant of the abdomen was performed. Images are reviewed in the transverse and longitudinal planes. FINDINGS: Liver: The liver is cirrhotic in morphology and heterogeneous in echotexture. There is nodularity of the surface contour. There is no intrahepatic biliary ductal dilatation. The main portal vein is patent. Gallbladder: Focal adenomyomatosis is noted in the fundal region. The gallbladder is normal in appearance. No gallstones are identified. The gallbladder wall is top normal in thickness measuring up to 3 mm. This is likely related to adjacent hepatocellular disease. No pericholecystic fluid is seen. A sonographic Mata's sign is reportedly absent. The common bile duct measures up to 0.3 cm in diameter. Pancreas: Not visualized due to overlying bowel gas. Right kidney: Survey images of the right kidney demonstrate normal size and echotexture. There is no hydronephrosis. Ascites: There is trace perihepatic ascites. IMPRESSION: 1. Cirrhotic liver morphology. 2. Trace perihepatic ascites. 3. No gallstones are identified and there is no sonographic evidence of acute cholecystitis. ACT 112: Negative or not required by law. Electronically signed by: Braulio Villalobos M.D. 01/20/2021 12:01 AM PG Care Time/CCT Total # of Minutes Spent Total Time Spent with Patient: Total time spent is greater than 50% in coordination of care (as documented) at patient's floor/unit and/or counseling patient: Coding Level of Care Code 86815 Subseq Hosp Care Lvl 3 Diagnoses Hematoma of left lower leg S80.12XA Anemia D64.9 Acute on chronic diastolic (congestive) heart failure I50.33 Hepatic cirrhosis K74.60 Chronic venous insufficiency I87.2 Atrial fibrillation I48.20 Atrial fibrillation type: unspecified chronic HTN (hypertension), benign I10 Obstructive sleep apnea syndrome G47.33 Osteomyelitis of left ankle M86.9 (1) Atrial fibrillation Atrial fibrillation type: unspecified chronic Qualified Code(s): I48.20 - Chronic atrial fibrillation, unspecified
[2021-01-20] MEDS: POLYETHYLENE (MIRALAX) 17 GM PACK PO PRN (20:01)
[2021-01-21 07:32] LABS: INR 1.3 (0.9-1.1); Prothrombin Time 13.2 Seconds (9.0-12.0)
--- NOTE | 2021-01-21 07:43 | Anesthesiology Consultation ---
Date of Service January 21, 2021 The patient has had multiple surgeries related to his left thigh wound over the past week. Assessment & Plan (1) Encounter for pre-operative examination: Chart Review Chart Review: Acceptable Risk for Surgery and Patient NOT seen in Pre Admission Testing Consults Requested none History Surgery Operation Date: 01/16/21 09:50 Proposed Procedures p Left Thigh Incision and Drainage of Hematoma with Wound Vac Placement - Pérez Blackmon MD Operation Date: 01/18/21 13:20 Proposed Procedures p Left Incision and Drainage Thigh with wound Vac Change - Baltazar Dill MD Operation Date: 01/21/21 11:30 Proposed Procedures p Incision and Drainage Left Thigh with Wound Vac Change - Baltazargenaro Dill MD Operation Date: 01/23/21 07:00 Proposed Procedures p Incision and Drainage thigh Left with Wound Vac Change - Pérez Blackmon MD Height/Weight Height: 5 ft 10 in Weight: 72 kg Allergies Allergy/AdvReac Type Severity Reaction Status Date / Time merbromin Allergy Intermediate ALLERGIC Verified 01/08/21 09:06 TO MERCUROCHROME, RASH mercury (elemental) AdvReac Intermediate Rash Verified 01/08/21 09:06 sulfamethoxazole AdvReac Intermediate GI UPSET, Verified 01/08/21 09:06 FEVER, HEADACHE trimethoprim AdvReac Intermediate GI UPSET, Verified 01/08/21 09:06 FEVER, HEADACHE ciprofloxacin AdvReac Mild GI SYMPTOMS Verified 01/08/21 09:06 Medications Home Medications Medication Instructions Recorded Confirmed Last Taken No Known Home Medications 01/08/21 01/08/21 Unknown Active Medications Generic Name Dose Route Start Last Admin Trade Name Francisco Jq PRN Reason Stop Dose Admin Acetaminophen 650 mg 01/08/21 13:27 01/16/21 19:54 Acetaminophen 325 Mg Tab PO 02/07/21 13:26 650 mg Q4H PRN Administration pain/fever Doxycycline Hyclate 100 mg 01/17/21 21:00 01/20/21 20:00 Doxycycline Hyclate 100 Mg Cap PO 01/21/21 20:59 100 mg BID TONY Administration Furosemide 40 mg 01/15/21 09:00 01/16/21 13:33 Furosemide 40 Mg Tab PO 02/14/21 08:59 40 mg QAM TONY Administration Furosemide 40 mg/ Syringe 4 mls @ 4 mls/min 01/17/21 09:00 01/20/21 07:58 IV 02/16/21 08:59 4 mls/min QAM TONY Administration Oxycodone HCl 5 mg 01/08/21 13:27 01/16/21 16:44 Oxycodone Hcl Ir 5 Mg Tab (Immediate Release) PO 01/22/21 13:26 5 mg Q4H PRN Administration Pain Polyethylene Glycol 17 gm 01/12/21 01:03 01/20/21 20:01 Polyethylene (Miralax) 17 Gm Pack PO 02/11/21 01:02 17 gm BID PRN Administration Constipation Rifaximin 200 mg 01/19/21 14:00 01/20/21 20:01 Rifaximin 200 Mg Tablet PO 01/21/21 09:01 200 mg TID TONY Administration Spironolactone 100 mg 01/15/21 09:00 01/20/21 07:59 Spironolactone 100 Mg Tab PO 02/14/21 08:59 100 mg QAM TONY Administration Tramadol HCl 50 - 100 mg 01/16/21 13:18 01/18/21 01:08 Tramadol Hcl 50 Mg Tablet PO 02/15/21 13:17 50 mg Q4H PRN Administration Pain & Pre PT NPO Date Last Intake of Fluids: 01/17/21 Time Last Intake of Fluids: 23:55 Date Last Intake of Solids: 01/15/21 Time Last Intake of Solids: 23:55 Past Medical History Medical History Actinic keratosis Anemia Aortic aneurysm Aortic stenosis, mild Arrhythmia HX Atrial fibrillation Bifascicular bundle branch block BPH (benign prostatic hyperplasia) Bronchitis 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 Chronic cough Chronic obstructive pulmonary disease Duodenal ulcer HX Dyspnea Enlarged prostate with lower urinary tract symptoms (LUTS) History of duodenal ulcer History of edema History of gross hematuria History of hepatitis History of retinal hemorrhage Hypertension Hypoxia Laceration of scalp with delay in treatment Left knee DJD Left shoulder pain Liver cirrhosis Macular degeneration Pneumonia ON ANTIBIOTICS CURRENTLY X 5 DAYS THRU PCP Positive JESSICA (antinuclear antibody) Pulmonary hypertension Retinal hemorrhage Right-sided heart failure Sleep apnea Traumatic hematoma of left upper arm Traumatic open wound of right lower leg with delayed healing Upper respiratory infection 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 Mother , Age 34 No problems noted. Denies family history of Colon cancer Ovarian cancer Prostate cancer Myocardial infarction Breast cancer Past Surgical History Surgical History History of cardiac radiofrequency ablation S/P History of colonoscopy History of esophagogastroduodenoscopy (EGD) History of gastrostomy History of total knee replacement R/L Hx of transurethral resection of prostate Social History Smoking Status: Former smoker tobacco type: pipe Hx Alcohol Use: Yes Alcohol type: wine alcohol intake frequency: a few times a week Alcohol Intake Frequency Comment: sometimes with dinner Hx Substance Use: No substance use type: does not use Physical Exam Vital Signs Last Vital Signs Temp 36.7 C 01/21/21 07:07 Pulse 61 01/21/21 07:07 Resp 18 01/21/21 07:07 BP 112/55 L 01/21/21 07:07 Pulse Ox 93 01/21/21 07:07 Testing Laboratory Results 01/20/21 05:17 PT 13.2 Seconds (9.0-12.0) H 01/21/21 06:44 INR 1.3 (0.9-1.1) H 01/21/21 06:44 APTT 48.7 Seconds (21.0-31.0) H* 01/08/21 08:42 Urine Color Dark Yellow 01/08/21 08:51 Urine Appearance Clear (Clear) 01/08/21 08:51 Urine pH 6.0 (4.5-7.5) 01/08/21 08:51 Ur Specific Larsen 1.020 (1.000-1.030) 01/08/21 08:51 Urine Protein Trace (Negative) H 01/08/21 08:51 Urine Glucose (UA) Negative (Negative) 01/08/21 08:51 Urine Ketones Negative (Negative) 01/08/21 08:51 Urine Nitrite Negative (Negative) 01/08/21 08:51 Ur Leukocyte Esterase 1+ (Negative) H 01/08/21 08:51 Urine WBC (Auto) 5-10 /hpf (0-5) H 01/08/21 08:51 Urine RBC (Auto) 0-4 /hpf (0-4) 01/08/21 08:51 U Hyaline Cast (Auto) 1-5 /lpf (0-5) 01/08/21 08:51 U Epithel Cells (Auto) 10-20 /lpf (0-5) H 01/08/21 08:51 Urine Bacteria (Auto) Negative (Negative) 01/08/21 08:51 Blood Type O Positive 01/18/21 07:13 Antibody Screen NEGATIVE 01/18/21 07:13 01/14/21 15:51 Gram Stain - Final Ankle Wound Culture - Final Corynebacterium species 01/08/21 08:42 Aerobic Blood Culture - Final Blood No growth in Aerobic bottle after 5 days. Anaerobic Blood Culture - Final No growth in Anaerobic bottle after 5 days. 01/08/21 08:31 Aerobic Blood Culture - Final Blood No growth in Aerobic bottle after 5 days. Anaerobic Blood Culture - Final No growth in Anaerobic bottle after 5 days. Electrocardiogram Date: 01/08/21 Findings: + RBBB Afib with PVCs, rate 78 Chest X-Ray Date: 01/08/21 XR chest 1V not portable CLINICAL HISTORY: weakness COMPARISON STUDY: Chest CT November 29, 2020. FINDINGS: There is no pneumothorax or pleural effusion. Cardiomegaly is unchanged. Pulmonary vascular congestion without overt pulmonary edema. Skinfold project over each hemithorax. IMPRESSION: 1. No pneumothorax. 2. Cardiomegaly with pulmonary vascular congestion, similar to prior exam. ACT 112: Negative or not required by law. Electronically signed by: Alan Chung M.D. 01/08/2021 11:07 AM Dictated: 01/08/21 1106Transcribed: 01/08/21 1106 Echocardiogram Date: 01/14/21 EF: 50-55 Other Findings: + atrial enlargement (biatrial) and + RVH (mild to moderate dilation) RVSP 40-50 mmHg, RV septal flattening Cervical Spine Date: 01/08/21 CT OF THE CERVICAL SPINE WITHOUT CONTRAST CLINICAL HISTORY: Neck pain following fall. COMPARISON STUDY: Cervical spine CT November 07, 2019. TECHNIQUE: Helical axial images of the cervical spine were obtained without IV contrast. Sagittal and coronal reconstructions were viewed. Automated exposure control was utilized for the study. A dose lowering technique was utilized adhering to the principles of ALARA. FINDINGS: Reversal of the normal cervical lordosis is again noted. Vertebral bod y heights are maintained. No acute cervical spine fracture or subluxation is present. There is no prevertebral edema. Facet joints are intact. Severe multilevel disc space narrowing, osteophytosis and facet arthrosis is unchanged. IMPRESSION: 1. No acute cervical spine fracture or subluxation. 2. Severe multilevel degenerative disc disease and facet arthrosis within the cervical spine. ACT 112: Negative or not required by law. Electronically signed by: Alan Chung M.D. 01/08/2021 9:51 AM Dictated: 01/08/21 0946
[2021-01-21 07:55] LABS: Albumin Level 2.4 gm/dl (3.4-5.0); BUN Creatinine Ratio 28.5 (10-20); Bilirubin Direct 0.9 mg/dl (0-0.2); Calcium 8.7 mg/dl (8.5-10.1); Creatinine Clr Calc Pharmacy 57.6 ml/min; Est GFR (African American) 86.4; Est GFR (Non-African American) 74.5; Potassium 4.1 mmol/L (3.5-5.1)
[2021-01-21 07:58] LABS: Bilirubin,Total 1.6 mg/dl (0.2-1); Total Protein 6.6 gm/dl (6.4-8.2)
[2021-01-21] MEDS: FUROSEMIDE 40 MG in SYRINGE 0 ML IV SCH (08:40)
[2021-01-21] MEDS: FUROSEMIDE 40 MG TAB PO SCH (08:40)
[2021-01-21] MEDS: LACTULOSE SYRUP 20 GM/30 ML UDC PO SCH (08:41)
[2021-01-21] MEDS: SPIRONOLACTONE 100 MG TAB PO SCH (08:41)
[2021-01-21] MEDS: DOXYCYCLINE HYCLATE 100 MG CAP PO SCH (08:41)
--- NOTE | 2021-01-21 09:26 | Orthopedic Progress Note ---
Date of Service January 21, 2021 Assessment & Plan (1) Hematoma of left thigh: HD # 14, L thigh infection, s/p multiple I&D and wound Vac placement for large left thigh wound. POD # 3 s/p I&D and wound Vac exchange left thigh. Continue wound vac left thigh Continue Antibiotics Has been NPO p MN tonight - plan for wound vac change in the OR later today Informed consent signed. Ice and elevation PRN swelling/pain Allowed for full ROM left leg, WBAT with walker. PT/OT Continue care per primary service. Will continue to follow. Continue covering for Dr. Blackmon who is out of town. Admission and Anticipated Discharge Date Admission Date: January 08, 2021 Subjective Managing alright Review of Systems Review of Systems: All systems reviewed & are unremarkable except as noted in HPI & below Physical Exam Physical Exam: LLE: Wound Vac in place, functioning well. Calf soft and non- tender. Neurovascularly intact. Results & Data ([facility]) Vital Signs (Past 12 Hours) Vital Signs Temp Pulse Resp BP Pulse Ox 01/21/21 07:07 36.7 C 61 18 112/55 L 93 01/20/21 23:05 36.7 C 58 L 20 100/51 L 92 (1) Hematoma of left thigh Encounter type: initial encounter Qualified Code(s): S70.12XA - Contusion of left thigh, initial encounter
[2021-01-21] MEDS ORDERED: PROPOFOL IV EMULSION 10 MG/ML 20 ML VIAL IV ONE (11:22)
[2021-01-21] MEDS ORDERED: LIDOCAINE HCL 2% 2 ML VIAL/AMP(20MG/ML) INFIL ONE (11:22)
[2021-01-21] MEDS ORDERED: fentaNYL citrate 100 MCG/2 ML VIAL ONE (11:22)
[2021-01-21] MEDS ORDERED: ONDANSETRON INJ 2 MG/ML 2 ML VIAL IV PRN (11:34)
[2021-01-21] MEDS ORDERED: ATROPINE SULFATE 0.1 MG/ML 10ML SYR IV PRN (11:34)
[2021-01-21] MEDS ORDERED: ePHEDrine sulfate 50 MG/ML AMP IV PRN (11:34)
[2021-01-21] MEDS ORDERED: fentaNYL citrate 100 MCG/2 ML VIAL IV PRN (11:34)
[2021-01-21] MEDS ORDERED: LIDOCAINE/EPINEPHRINE 1% 20 ML VIAL ONE (11:44)
[2021-01-21] MEDS ORDERED: BUPIVACAINE 0.5 % 5 MG/1 ML MPF 30ML VIAL ONE (11:44)
--- NOTE | 2021-01-21 12:37 | Operative Report ---
Post Operative Report Pre & Post Diagnosis Operation Date: 01/16/21 09:50 Pre-Op Diagnosis: Left leg hematoma Post-Op Diagnosis: Left leg hematoma Operation Date: 01/18/21 13:20 Pre-Op Diagnosis: Left leg hematoma Post-Op Diagnosis: Left leg hematoma Operation Date: 01/21/21 11:30 Pre-Op Diagnosis: LEFT LEG HEMATOMA Post-Op Diagnosis: LEFT LEG HEMATOMA I identified the patient and participated in the time-out.: Yes Procedure Operation Date: 01/16/21 09:50 Actual Procedures p Left Thigh Incision and Drainage of Hematoma with Wound Vac Placement(Left) - Pérez Blackmon MD Operation Date: 01/18/21 13:20 Actual Procedures p Left Incision and Drainage Thigh with wound Vac Change(Left) - Baltazar Dill MD Operation Date: 01/21/21 11:30 Actual Procedures p Incision and Drainage Left Thigh with Wound Vac Change(Left) - Baltazar Dill MD Surgeon Baltazar Dill MD Escalator Installer Devi Hernandez PA-C (No fellow avail) Estimated Blood Loss 2 Findings See Below Wound: Length 22 cm x 10 cm Width, down to Muscle. Incision 14 cm in length. No evidence of infection. Inferior thigh near distal aspect of incision is a small pressure sore approximately size of a quarter, improved since last visit to OR. Fluids 200 cc Specimens n/a Anesthesia Type MAC Complications none Indications Patient status post I&D of the left leg wound by Dr. Blackmon, who is out of town and I am covering. The patient has a large wound on the anterior thigh, full-thickness from the subcutaneous down to the fascia, that is being treated with wound Vac. Informed consent obtained for planned return to OR for I&D, wo und VAC exchange. Description of Procedure The patient was taken to the Operating Room and after sufficient sedation was administered a multidisciplinary time-out was performed identifying my initials on the left lower limb as the correct and operative limb, the patient was placed in the supine position on the operating table. The patient is continuing his antibiotic regime. The left lower leg was prepped and draped in the standard sterile fashion. Preoperative antibiotics were not necessary, continue current regime. The wound VAC was removed. The VAC sponge was removed. There was no bleeding. There was early granulation present throughout the wound. There was no purulence noted and no necrotic tissue. The wound was irrigated with normal saline. A new smaller black sponge was cut down in size and placed to try and reduce the volume. The wound VAC was applied and deployed without incident. The patient was taken recovery room in stable condition. Optifoam was placed pressure sore inferior thigh. The sponge and needle counts were correct. POST-OP: Patient was re-admitted to the hospital. Plan to return 01/23/21 for repeat I&D with exchange the wound VAC by Dr. Blackmon. I attest to the content of the Intraoperative Record and any orders documented therein. Any exceptions are noted below.
--- NOTE | 2021-01-21 12:41 | Operative Report ---
Post Operative Report Pre & Post Diagnosis Operation Date: 01/16/21 09:50 Pre-Op Diagnosis: Left leg hematoma Post-Op Diagnosis: Left leg hematoma Operation Date: 01/18/21 13:20 Pre-Op Diagnosis: Left leg hematoma Post-Op Diagnosis: Left leg hematoma Operation Date: 01/21/21 11:30 Pre-Op Diagnosis: LEFT LEG HEMATOMA Post-Op Diagnosis: LEFT LEG HEMATOMA Operation Date: 01/23/21 07:15 <No data on this case meets the specified criteria> I identified the patient and participated in the time-out.: Yes Procedure Operation Date: 01/16/21 09:50 Actual Procedures p Left Thigh Incision and Drainage of Hematoma with Wound Vac Placement(Left) - Pérez Blackmon MD Operation Date: 01/18/21 13:20 Actual Procedures p Left Incision and Drainage Thigh with wound Vac Change(Left) - Baltazar Dill MD Operation Date: 01/21/21 11:30 Actual Procedures p Incision and Drainage Left Thigh with Wound Vac Change(Left) - Baltazar Dill MD Operation Date: 01/23/21 07:15 <No data on this case meets the specified criteria> Surgeon Baltazar Dill M.D. Plant Director Devi Hernandez PA-C (No fellow avail) Estimated Blood Loss 2 Findings Consistent with Post-Op Diagnosis Specimens None Anesthesia Type MAC Complications none Description of Procedure Patient was taken to the operating room, placed under general anesthesia. Time out performed, prepped and draped in routine sterile fashion. I was present during the entire case and assisted with irrigation and re-application of wound vac left thigh. Please see Dr. Dill's operative report for further detail. Patient was awakened and taken to the recovery room in stable condition. I attest to the content of the Intraoperative Record and any orders documented therein. Any exceptions are noted below.
--- NOTE | 2021-01-21 13:33 | Anesthesiology Progress Note ---
Date of Service January 21, 2021 Anesthesia Post Procedure Vital Signs Vital Signs: Temp Pulse Pulse Resp BP Pulse Ox 01/21/21 12:54 55 L 16 95/49 L 97 01/21/21 12:45 53 L 16 96/45 L 98 01/21/21 12:39 98.2 F 70 16 98/49 L 98 01/21/21 11:30 97.9 F 72 18 109/66 92 01/21/21 07:07 98.1 F 61 18 112/55 L 93 01/20/21 23:05 98.1 F 58 L 20 100/51 L 92 01/20/21 16:27 98.2 F 58 L 18 107/41 L 94 Pain Intensity Left Thigh: Pain Intensity: 3 Left Leg: Pain Intensity: 0 Transfer of Care Handoff Completed per policy Notes Mental Status: alert / awake / arousable and participated in evaluation Patient Amnestic to Procedure: Yes Nausea / Vomiting: adequately controlled Pain: adequately controlled Airway Patency, RR, SpO2: stable & adequate BP & HR: stable & adequate Hydration State: stable & adequate Anesthetic Complications: no major complications apparent and Pt Satisfied with anesthetic care
--- NOTE | 2021-01-21 23:25 | Hospitalist Progress Note ---
Date of Service January 21, 2021 Assessment & Plan (1) Hematoma of left lower leg: Secondary to fall on rug at home. CT LEFT Femur on admission with hematoma measures approximately 30 x 11 x 7.5 cm MRI with enlargement of hematoma on 01/14 to 31.7 x 12.5 x 7.[address] of January 08, 2021. Orthopedics consulted, Dr. Blackmon POD #5 S/P I&D LEFT THIGH HEMATOMA 01/[address] Blackmon. EBL 25cc. * Per operative report, 1000cc large loculated hematoma evacuated and wound vac placed POD#3 s/p wound vac exchange on 01/[address] Dill. Tolerated well and size decreased with granulation tissue throughout without clot. * Lincoln placed and will get more accurate I&O however weights still inaccurate * --> Continuing lasix 40mg IV daily (WEIGHT NOW FINALLY 72kg/157lb down from 74.6kg on admission) and will continue for tomorrow and continue to monitor (dry weight closer to 148lb per CHF clinic) s/p wound vac exchange today, tolerated well Anemia secondary to hematoma * Iron studies with : * -->iron 27L, TIBC 312/ferritin 113 wnl, trans % sat low 10, transferrin low 193. * --> Venofer IV given 01/15 and 01/17 and 01/19 * h/h 9.128.6 when last checked Will need repeat therapy evals to see about SNF given prior denial and was deemed at baseline. Given above, anticipate no issues with getting approval (2) Anemia: * See above, secondary to #1 * Would place on PO iron once constipation resolved given iron low at 27, trans sat % 10L, transferrin 193L, TIBC wnl at 312 and ferritin 113 * Venofer x 1 on 01/15, 01/17, 01/19 * 2 units PRBC prior to surgery and 1 unit PRBC given with surgery on 01/16 * H/h has been stable, no further bleeding (3) Acute on chronic diastolic (congestive) heart failure: * due to RIGHT SIDED HEART FAILURE/CIRRHOSIS * -- secondary to medication non-compliance/cognitive decline. * Was on Lasix 40mg QOD during admission but was on daily dose with 100mg spironolactone * BNP 3798 on 01/14 * ECHO with evidence for volume overload with elevated RVSP * Continues on Lasix 40mg IV daily in addition to 100mg spironolactone daily, Cr is stable and making urine (4) Hepatic cirrhosis: * Unclear whether the patient is taking spironolactone or furosemide at the current time. * no further work up, he is DNR (5) Chronic venous insufficiency: * Stasis changes to b/l LE however with edema/fall and hx afib will get Doppler to r/o DVT * Dopplers NEGATIVE for DVT * Vascular also consulted given plans for outpatient Venaseal to see about getting this done sooner/while inpatient? * --> Plans for outpatient intervention * Was to complete course of doxycycline --> did have dose left. 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 * Not on anticoagulation - unclear reason for this although contraindicated with current hematoma --> had issues in past with intraocular bleeding as well as hematuria last admission while on Lovenox * Venous Dopplers 01/14 NEGATIVE for DVT * Rate controlled on no medication (7) HTN (hypertension), benign: * Chronic. BP controlled 110/51 and continues to tolerate diuresis * On lasix/spironolactone as above * Previously on carvedilol, SATNAM in past -- unclear why this was discontinued (8) Obstructive sleep apnea syndrome: * Patient reports not on CPAP at home. * With R sided HF would benefit but patient continues to decline (9) Osteomyelitis of left ankle: * Chronic * No surgical intervention planned. * [facility] - just completed course of Doxycycline for 14 days per wound care (did not complete full course) for MSSA of wound in office * Repeat cx with pin-point growth, re-incubating --> corynebacterium * CRP elevated 6.7, ESR 70 (but could be from age?) --> IMPROVING ON REPEAT * no WBC/afebrile * Placed back on doxy on 01/14, switched to PO 01/17 and would complete 7-10 day course. Continued for erythema which is improved but now some erythema around wound vac as well * Continued wound care while inpatient Palliative consultation undertaken given LACE score >=11 for goals of care Patient changed to DNR/DNI Dispo: continued inpatient stay, plan for additional wound vac changes per ortho Will need repeat therapy evals and look back into SNF/rehab at d/c Admission and Anticipated Discharge Date Admission Date: January 08, 2021 Subjective patient just got back from OR for wound vac exchange he is doing well, no chest pain, no dyspnea, no cough, no fever left leg swelling is down considerably, wound vac in place reviewed chart, reviewed labs, Hb is stable appreciate orthopedic assistance with patient Review of Systems Review of Systems: All systems reviewed & are unremarkable except as noted in Subjective Physical Exam Constitutional: well developed, + thin and + frail appearing; no acute distress Neck: trachea midline, no thyromegaly Respiratory: normal respiratory effort, lungs clear to auscultation Cardiovascular: Rate/Rhythm: regular rate and regular rhythm Heart Sounds: normal S1 and normal S2; no murmur Extremities: normal capillary refill and + edema (+1 pedal edema) Gastrointestinal (Abdomen): normal bowel sounds, soft, nontender, no hepatosplenomegaly Musculoskeletal: no cyanosis or clubbing, extremities motor strength 5/5 Skin: + turgor decreased, + wound (left thigh, from hematoma drainage, now with wound vac) and + dry skin Neurologic: patellar DTR's 2+ bilat, sensation intact and PERRL, EOMI, accommodation nl, no face palsy, no dysarthria Psychiatric: A+Ox3, euthymic affect Lymphatic: no cervical or axillary lymphadenopathy Results & Data Results & Data ([facility]) Vital Signs (Past 12 Hours) Vital Signs Temp Pulse Pulse Resp BP BP Pulse Ox 01/21/21 23:01 36.7 C 66 18 97/52 L 96/48 L 94 01/21/21 19:00 37.1 C 61 16 102/61 93 01/21/21 15:26 36.2 C L 72 16 113/48 L 94 01/21/21 13:44 36.8 C 58 L 16 105/51 L 96 01/21/21 12:54 55 L 16 95/49 L 97 01/21/21 12:45 53 L 16 96/45 L 98 01/21/21 12:39 36.8 C 70 16 98/49 L 98 01/21/21 11:30 36.6 C 72 18 109/66 92 Laboratory Results Laboratory Results - last 24 hr 01/18/21 01/21/21 01/21/21 07:13 06:44 06:44 PT 13.2 H INR 1.3 H Sodium 137 Potassium 4.1 Chloride 100 Carbon Dioxide 32 Anion Gap 5.0 BUN 26 H Creatinine 0.92 Est Cr Clr Drug Dosing 57.6 Est GFR ( Amer) 86.4 Est GFR (Non-Af Amer) 74.5 BUN/Creatinine Ratio 28.5 H Glucose 84 Calcium 8.7 Total Bilirubin 1.6 H Direct Bilirubin 0.9 H AST 41 H ALT 23 Alkaline Phosphatase 248 H Total Protein 6.6 Albumin 2.4 L Crossmatch See Detail Medications Administered Current Inpatient Medications Acetaminophen (Acetaminophen 325 Mg Tab) 650 mg PO Q4H PRN PRN Reason: pain/fever Stop: 02/07/21 13:26 Last Admin: 01/16/21 19:54 Dose: 650 mg Documented by: Bisacodyl (Bisacodyl 10 Mg Supp) 10 mg ND DAILY PRN PRN Reason: Constipation Stop: 02/15/21 13:17 Furosemide (Furosemide 40 Mg Tab) 40 mg PO [facility] Stop: 02/14/21 08:59 Last Admin: 01/21/21 08:40 Dose: 40 mg Documented by: Furosemide 40 mg/ Syringe 4 mls @ 4 mls/min IV [facility] Stop: 02/16/21 08:59 Last Admin: 01/21/21 08:40 Dose: 4 mls/min Documented by: Lactulose (Lactulose Syrup 20 Gm/30 Ml Udc) 40 [facility] Stop: 02/20/21 08:59 Last Admin: 01/21/21 08:41 Dose: 40 gm Documented by: Magnesium Hydroxide (Magnesium Hydroxide Susp 30 Ml Udc) 30 ml PO Q6H PRN PRN Reason: Constipation Stop: 02/15/21 13:17 Melatonin (Melatonin 3 Mg Tab) 3 mg PO HS PRN PRN Reason: Sleep Stop: 02/12/21 23:23 Last Admin: 01/21/21 20:27 Dose: 3 mg Documented by: Naloxone HCl (Naloxone Hcl 0.4 Mg/1 Ml Vial/Carp) 0.1 mg IV Q5M PRN PRN Reason: Oversedation/Resp Depression Stop: 02/15/21 13:17 Ondansetron HCl (Ondansetron Inj 2 Mg/Ml 2 Ml Vial) 4 mg IV Q6H PRN PRN Reason: Nausea And Vomiting Stop: 02/15/21 13:17 Oxycodone HCl (Oxycodone Hcl Ir 5 Mg Tab (Immediate Release)) 5 mg PO Q4H PRN PRN Reason: Pain Stop: 01/22/21 13:26 Last Admin: 01/16/21 16:44 Dose: 5 mg Documented by: Polyethylene Glycol (Polyethylene (Miralax) 17 Gm Pack) 17 gm PO BID PRN PRN Reason: Constipation Stop: 02/11/21 01:02 Last Admin: 01/20/21 20:01 Dose: 17 gm Documented by: Spironolactone (Spironolactone 100 Mg Tab) 100 mg PO QAM TONY Stop: 02/14/21 08:59 Last Admin: 01/21/21 08:41 Dose: 100 mg Documented by: Tramadol HCl (Tramadol Hcl 50 Mg Tablet) 50 - 100 mg PO Q4H PRN PRN Reason: Pain & Pre PT Stop: 02/15/21 13:17 Last Admin: 01/18/21 01:08 Dose: 50 mg Documented by: PG Care Time/CCT Total # of Minutes Spent Total Time Spent with Patient: Total time spent is greater than 50% in coordination of care (as documented) at patient's floor/unit and/or counseling patient: Coding Level of Care Code 47307 Subseq Hosp Care Lvl 2 Diagnoses Hematoma of left lower leg S80.12XA Anemia D64.9 Acute on chronic diastolic (congestive) heart failure I50.33 Hepatic cirrhosis K74.60 Chronic venous insufficiency I87.2 Atrial fibrillation I48.20 Atrial fibrillation type: unspecified chronic HTN (hypertension), benign I10 Obstructive sleep apnea syndrome G47.33 Osteomyelitis of left ankle M86.9 (1) Atrial fibrillation Atrial fibrillation type: unspecified chronic Qualified Code(s): I48.20 - Chronic atrial fibrillation, unspecified
[2021-01-22] MEDS: FUROSEMIDE 40 MG in SYRINGE 0 ML IV SCH (08:33)
[2021-01-22] MEDS: LACTULOSE SYRUP 20 GM/30 ML UDC PO SCH (08:33)
[2021-01-22] MEDS: SPIRONOLACTONE 100 MG TAB PO SCH (08:34)
--- NOTE | 2021-01-22 09:48 | Orthopedic Progress Note ---
Date of Service January 22, 2021 Assessment & Plan (1) Hematoma of left thigh: N.p.o. after midnight. Plan is to return to the operating room in the morning for wound VAC change and assessment of wound. Informed consent obtained. Patient is not on any antibiotics. He does not require any p reoperative antibiotics. He is not on any blood thinners. Present on Admission?: Yes (2) Acute blood loss anemia: Admission and Anticipated Discharge Date Admission Date: January 08, 2021 Subjective Sitting in chair. No problems noted. Physical Exam Physical Exam: Wound VAC in place. Able to flex and extend ankle. Able to move knee freely. There is purplish discoloration of the lower leg. The thigh is not swollen. Results & Data ([facility]) Vital Signs (Past 12 Hours) Vital Signs Temp Pulse Resp BP BP Pulse Ox 01/22/21 08:06 36.6 C 76 18 113/44 L 91 01/22/21 03:44 36.9 C 65 15 100/45 L 90 01/21/21 23:01 36.7 C 66 18 97/52 L 96/48 L 94 (1) Hematoma of left thigh Encounter type: initial encounter Qualified Code(s): S70.12XA - Contusion of left thigh, initial encounter
--- NOTE | 2021-01-22 16:07 | Hospitalist Progress Note ---
Date of Service January 22, 2021 Assessment & Plan (1) Hematoma of left lower leg: Secondary to fall on rug at home. CT LEFT Femur on admission with hematoma measures approximately 30 x 11 x 7.5 cm MRI with enlargement of hematoma on 01/14 to 31.7 x 12.5 x 7.[address] of January 08, 2021. Orthopedics consulted, Dr. Blackmon POD #6 S/P I&D LEFT THIGH HEMATOMA 01/[address] Blackmon. EBL 25cc. * Per operative report, 1000cc large loculated hematoma evacuated and wound vac placed POD#4 s/p wound vac exchange on 01/[address] Dill. Tolerated well and size decreased with granulation tissue throughout without clot. * Lincoln placed and will get more accurate I&O however weights still inaccurate * --> Continuing lasix 40mg IV daily (WEIGHT NOW FINALLY 72kg/157lb down from 74.6kg on admission) and will continue for tomorrow and continue to monitor (dry weight closer to 148lb per CHF clinic) POD #1 wound vac exchange in OR Anemia secondary to hematoma * Iron studies with : * -->iron 27L, TIBC 312/ferritin 113 wnl, trans % sat low 10, transferrin low 193. * --> Venofer IV given 01/15 and 01/17 and 01/19 * h/h 9.128.6 when last checked Will need repeat therapy evals to see about SNF given prior denial and was deemed at baseline. Given above, anticipate no issues with getting approval (2) Anemia: * See above, secondary to #1 * Would place on PO iron once constipation resolved given iron low at 27, trans sat % 10L, transferrin 193L, TIBC wnl at 312 and ferritin 113 * Venofer x 1 on 01/15, 01/17, 01/19 * 2 units PRBC prior to surgery and 1 unit PRBC given with surgery on 01/16 * H/h has been stable, no further bleeding (3) Acute on chronic diastolic (congestive) heart failure: * due to RIGHT SIDED HEART FAILURE/CIRRHOSIS * -- secondary to medication non-compliance/cognitive decline. * Was on Lasix 40mg QOD during admission but was on daily dose with 100mg spironolactone * BNP 3798 on 01/14 * ECHO with evidence for volume overload with elevated RVSP * Continues on Lasix 40mg IV daily in addition to 100mg spironolactone daily, Cr is stable and making urine * change to PO Lasix tomorrow (4) Hepatic cirrhosis: * Unclear whether the patient is taking spironolactone or furosemide at the current time. * no further work up, he is DNR (5) Chronic venous insufficiency: * Stasis changes to b/l LE however with edema/fall and hx afib will get Doppler to r/o DVT * Dopplers NEGATIVE for DVT * Vascular also consulted given plans for outpatient Venaseal to see about getting this done sooner/while inpatient? * --> Plans for outpatient intervention * Was to complete course of doxycycline --> did have dose left. 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 * Not on anticoagulation - unclear reason for this although contraindicated with current hematoma --> had issues in past with intraocular bleeding as well as hematuria last admission while on Lovenox * Venous Dopplers 01/14 NEGATIVE for DVT * Rate controlled on no medication (7) HTN (hypertension), benign: * Chronic. BP controlled 110/51 and continues to tolerate diuresis * On lasix/spironolactone as above * Previously on carvedilol, SATNAM in past -- unclear why this was discontinued (8) Obstructive sleep apnea syndrome: * Patient reports not on CPAP at home. * With R sided HF would benefit but patient continues to decline (9) Osteomyelitis of left ankle: * Chronic * No surgical intervention planned. * [facility] - just completed course of Doxycycline for 14 days per wound care (did not complete full course) for MSSA of wound in office * Repeat cx with pin-point growth, re-incubating --> corynebacterium * CRP elevated 6.7, ESR 70 (but could be from age?) --> IMPROVING ON REPEAT * no WBC/afebrile * Placed back on doxy on 01/14, switched to PO 4/22 and would complete 7-10 day course. Continued for erythema which is improved but now some erythema around wound vac as well * Continued wound care while inpatient Palliative consultation undertaken given LACE score >=11 for goals of care Patient changed to DNR/DNI Dispo: continued inpatient stay, plan for additional wound vac changes per ortho Will need repeat therapy evals and look back into SNF/rehab at d/c Admission and Anticipated Discharge Date Admission Date: January 08, 2021 Subjective patient laying in bed, he is comfortable, speaking with his on the phone I updated her on the phone while I was there he is eating okay, breathing well, no chest pain, minimal pain with left leg Dr. Blackmon plans to take to OR tomorrow Review of Systems Review of Systems: All systems reviewed & are unremarkable except as noted in Subjective Constitutional: + fatigue and + weakness; no fever Respiratory: no cough and no dyspnea Cardiovascular: no chest pain and no palpitations Gastrointestinal: no abdominal pain, no nausea, no vomiting, no constipation and no diarrhea/loose stools Physical Exam Constitutional: well developed, + thin and + frail appearing; no acute distress Neck: trachea midline, no thyromegaly Respiratory: normal respiratory effort, lungs clear to auscultation Cardiovascular: Rate/Rhythm: regular rate and regular rhythm Heart Sounds: normal S1 and normal S2; no murmur Extremities: normal capillary refill and + edema (+1 pedal edema) Gastrointestinal (Abdomen): normal bowel sounds, soft, nontender, no hepatosplenomegaly Musculoskeletal: no cyanosis or clubbing, extremities motor strength 5/5 Skin: + turgor decreased, + wound (left thigh, from hematoma drainage, now with wound vac) and + dry skin Neurologic: patellar DTR's 2+ bilat, sensation intact and PERRL, EOMI, accommodation nl, no face palsy, no dysarthria Psychiatric: A+Ox3, euthymic affect Lymphatic: no cervical or axillary lymphadenopathy Results & Data Results & Data ([facility]) Vital Signs (Past 12 Hours) Vital Signs Temp Pulse Resp BP Pulse Ox 01/22/21 15:55 37.0 C 49 L 16 115/50 L 98 01/22/21 08:06 36.6 C 76 18 113/44 L 91 Medications Administered Current Inpatient Medications Acetaminophen (Acetaminophen 325 Mg Tab) 650 mg PO Q4H PRN PRN Reason: pain/fever Stop: 02/07/21 13:26 Last Admin: 01/16/21 19:54 Dose: 650 mg Documented by: Bisacodyl (Bisacodyl 10 Mg Supp) 10 mg DE DAILY PRN PRN Reason: Constipation Stop: 02/15/21 13:17 Furosemide 40 mg/ Syringe 4 mls @ 4 mls/min IV QAM [facility] Stop: 02/16/21 08:59 Last Admin: 01/22/21 08:33 Dose: 4 mls/min Documented by: Lactulose (Lactulose Syrup 20 Gm/30 Ml Udc) 40 gm PO QAM [facility] Stop: 02/20/21 08:59 Last Admin: 01/22/21 08:33 Dose: 40 gm Documented by: Magnesium Hydroxide (Magnesium Hydroxide Susp 30 Ml Udc) 30 ml PO Q6H PRN PRN Reason: Constipation Stop: 02/15/21 13:17 Melatonin (Melatonin 3 Mg Tab) 3 mg PO HS PRN PRN Reason: Sleep Stop: 02/12/21 23:23 Last Admin: 01/21/21 20:27 Dose: 3 mg Documented by: Naloxone HCl (Naloxone Hcl 0.4 Mg/1 Ml Vial/Carp) 0.1 mg IV Q5M PRN PRN Reason: Oversedation/Resp Depression Stop: 02/15/21 13:17 Ondansetron HCl (Ondansetron Inj 2 Mg/Ml 2 Ml Vial) 4 mg IV Q6H PRN PRN Reason: Nausea And Vomiting Stop: 02/15/21 13:17 Polyethylene Glycol (Polyethylene (Miralax) 17 Gm Pack) 17 gm PO BID PRN PRN Reason: Constipation Stop: 02/11/21 01:02 Last Admin: 01/20/21 20:01 Dose: 17 gm Documented by: Spironolactone (Spiron[facility]actone 100 Mg Tab) [facility] Stop: 02/14/21 08:59 Last Admin: 01/22/21 08:34 Dose: 100 mg Documented by: Tramadol HCl (Tramadol Hcl 50 Mg Tablet) 50 - 100 mg PO Q4H PRN PRN Reason: Pain & Pre PT Stop: 02/15/21 13:17 Last Admin: 01/18/21 01:08 Dose: 50 mg Documented by: PG Care Time/CCT Total # of Minutes Spent Total Time Spent with Patient: Total time spent is greater than 50% in coordination of care (as documented) at patient's floor/unit and/or counseling patient: Coding Level of Care Code 00008 Subseq Hosp Care Lvl 2 Diagnoses Hematoma of left lower leg S80.12XA Anemia D64.9 Acute on chronic diastolic (congestive) heart failure I50.33 Hepatic cirrhosis K74.60 Chronic venous insufficiency I87.2 Atrial fibrillation I48.20 Atrial fibrillation type: unspecified chronic HTN (hypertension), benign I10 Obstructive sleep apnea syndrome G47.33 Osteomyelitis of left ankle M86.9 (1) Atrial fibrillation Atrial fibrillation type: unspecified chronic Qualified Code(s): I48.20 - Chronic atrial fibrillation, unspecified
--- NOTE | 2021-01-23 06:44 | History & Physical Bridge Note ---
Date of Service January 23, 2021 History & Physical Bridge Note I have examined the patient, reviewed the History & Physical and in the interval since the performance of the History & Physical I have noted the following changes of clinical significance: no changes noted
[2021-01-23 06:46] LABS: Hematocrit (blood only) 29.6 % (42-52); Hemoglobin 9.3 g/dL (14.0-18.0); Mean Corpuscular Hemoglobin 30.1 pg (25-34); Mean Corpuscular Hgb Conc 31.4 g/dL (32-36); Mean Corpuscular Volume 95.8 fL (80-100); Mean Platelet Volume 8.6 fL (7.4-10.4); Platelet Count 245 K/uL (130-400); RDW Coefficient of Variation 18.8 % (11.5-14.5); RDW Standard Deviation 64.8 fL (36.4-46.3); Red Blood Count 3.09 M/uL (4.7-6.1); White Blood Count 5.84 K/uL (4.8-10.8)
[2021-01-23 07:00] LABS: INR 1.3 (0.9-1.1); Prothrombin Time 12.8 Seconds (9.0-12.0)
[2021-01-23] MEDS ORDERED: MIDAZOLAM HCL 1 MG/ML 2ML VIAL ONE (07:03)
[2021-01-23] MEDS ORDERED: fentaNYL citrate 100 MCG/2 ML VIAL ONE (07:03)
[2021-01-23] MEDS ORDERED: LIDOCAINE HCL 2% 2 ML VIAL/AMP(20MG/ML) INFIL ONE (07:03)
[2021-01-23] MEDS ORDERED: ONDANSETRON INJ 2 MG/ML 2 ML VIAL ONE (07:03)
[2021-01-23] MEDS ORDERED: DEXAMETHASONE SOD INJ 4 MG/ML VIAL ONE (07:03)
[2021-01-23] MEDS ORDERED: PROPOFOL IV EMULSION 10 MG/ML 20 ML VIAL IV ONE (07:03)
--- NOTE | 2021-01-23 07:03 | Anesthesiology Consultation ---
Date of Service January 23, 2021 Assessment & Plan (1) Encounter for pre-operative examination: History Surgery Operation Date: 01/16/21 09:50 Proposed Procedures p Left Thigh Incision and Drainage of Hematoma with Wound Vac Placement - Pérez Blackmon MD Operation Date: 01/18/21 13:20 Proposed Procedures p Left Incision and Drainage Thigh with wound Vac Change - Baltazar Dill MD Operation Date: 01/21/21 11:30 Proposed Procedures p Incision and Drainage Left Thigh with Wound Vac Change - Baltazar Dill MD Operation Date: 01/23/21 07:15 Proposed Procedures p Incision and Drainage thigh Left with Wound Vac Change - Pérez Blackmon MD Operation Date: 01/25/21 08:30 Proposed Procedures p Incision and Drainage Thigh Left With Wound Vac Change - Pérez Blackmon MD Operation Date: 01/28/21 08:30 Proposed Procedures p Incision and Drainage Thigh Left With Wound Vac Change - Pérez Blackmon MD Height/Weight Height: 5 ft 10 in Weight: 69.4 kg Allergies Allergy/AdvReac Type Severity Reaction Status Date / Time merbromin Allergy Intermediate ALLERGIC Verified 01/08/21 09:06 TO MERCUROCHROME, RASH mercury (elemental) AdvReac Intermediate Rash Verified 01/08/21 09:06 sulfamethoxazole AdvReac Intermediate GI UPSET, Verified 01/08/21 09:06 FEVER, HEADACHE trimethoprim AdvReac Intermediate GI UPSET, Verified 01/08/21 09:06 FEVER, HEADACHE ciprofloxacin AdvReac Mild GI SYMPTOMS Verified 01/08/21 09:06 Medications Home Medications Medication Instructions Recorded Confirmed Last Taken No Known Home Medications 01/08/21 01/08/21 Unknown Active Medications Generic Name Dose Route Start Last Admin Trade Name Freq PRN Reason Stop Dose Admin Acetaminophen 650 mg 01/08/21 13:27 01/16/21 19:54 Acetaminophen 325 Mg Tab PO 02/07/21 13:26 650 mg Q4H PRN Administration pain/fever Lactulose 40 gm 01/21/21 09:00 01/22/21 08:33 Lactulose Syrup 20 Gm/30 Ml Udc PO 02/20/21 08:59 40 gm QAM TONY Administration Melatonin 3 mg 01/13/21 23:24 01/21/21 20:27 Melatonin 3 Mg Tab PO 02/12/21 23:23 3 mg HS PRN Administration Sleep Polyethylene Glycol 17 gm 01/12/21 01:03 01/20/21 20:01 Polyethylene (Miralax) 17 Gm Pack PO 02/11/21 01:02 17 gm BID PRN Administration Constipation Spironolactone 100 mg 01/15/21 09:00 01/22/21 08:34 Spironolactone 100 Mg Tab PO 02/14/21 08:59 100 mg QAM TONY Administration Tramadol HCl 50 - 100 mg 01/16/21 13:18 01/18/21 01:08 Tramadol Hcl 50 Mg Tablet PO 02/15/21 13:17 50 mg Q4H PRN Administration Pain & Pre PT NPO Date Last Intake of Fluids: 01/23/21 Time Last Intake of Fluids: 00:00 Last Intake of Fluids Comment: sips water with am medications Date Last Intake of Solids: 01/23/21 Time Last Intake of Solids: 00:00 Past Medical History Medical History Actinic keratosis Anemia Aortic aneurysm Aortic stenosis, mild Arrhythmia HX Atrial fibrillation Bifascicular bundle branch block BPH (benign prostatic hyperplasia) Bronchitis 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 Chronic cough Chronic obstructive pulmonary disease Duodenal ulcer HX Dyspnea Enlarged prostate with lower urinary tract symptoms (LUTS) History of duodenal ulcer History of edema History of gross hematuria History of hepatitis History of retinal hemorrhage Hypertension Hypoxia Laceration of scalp with delay in treatment Left knee DJD Left shoulder pain Liver cirrhosis Macular degeneration Pneumonia ON ANTIBIOTICS CURRENTLY X 5 DAYS THRU PCP Positive JESSICA (antinuclear antibody) Pulmonary hypertension Retinal hemorrhage Right-sided heart failure Sleep apnea Traumatic hematoma of left upper arm Traumatic open wound of right lower leg with delayed healing Upper respiratory infection 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 Mother , Age 34 No problems noted. Denies family history of Colon cancer Ovarian cancer Prostate cancer Myocardial infarction Breast cancer Past Surgical History Surgical History History of cardiac radiofrequency ablation S/P History of colonoscopy History of esophagogastroduodenoscopy (EGD) History of gastrostomy History of total knee replacement R/L Hx of transurethral resection of prostate Social History Smoking Status: Former smoker tobacco type: pipe Hx Alcohol Use: Yes Alcohol type: wine alcohol intake frequency: a few times a week Alcohol Intake Frequency Comment: sometimes with dinner Hx Substance Use: No substance use type: does not use Physical Exam Vital Signs Last Vital Signs Temp 36.3 C L 01/23/21 06:48 Pulse 52 L 01/23/21 06:48 Resp 20 01/23/21 06:48 BP 104/57 L 01/23/21 06:48 Pulse Ox 96 01/23/21 06:48 Testing Laboratory Results 01/23/21 06:17 PT 12.8 Seconds (9.0-12.0) H 01/23/21 06:17 INR 1.3 (0.9-1.1) H 01/23/21 06:17 APTT 48.7 Seconds (21.0-31.0) H* 01/08/21 08:42 Urine Color Dark Yellow 01/08/21 08:51 Urine Appearance Clear (Clear) 01/08/21 08:51 Urine pH 6.0 (4.5-7.5) 01/08/21 08:51 Ur Specific [place] 1.020 (1.000-1.030) 01/08/21 08:51 Urine Protein Trace (Negative) H 01/08/21 08:51 Urine Glucose (UA) Negative (Negative) 01/08/21 08:51 Urine Ketones Negative (Negative) 01/08/21 08:51 Urine Nitrite Negative (Negative) 01/08/21 08:51 Ur Leukocyte Esterase 1+ (Negative) H 01/08/21 08:51 Urine WBC (Auto) 5-10 /hpf (0-5) H 01/08/21 08:51 Urine RBC (Auto) 0-4 /hpf (0-4) 01/08/21 08:51 U Hyaline Cast (Auto) 1-5 /lpf (0-5) 01/08/21 08:51 U Epithel Cells (Auto) 10-20 /lpf (0-5) H 01/08/21 08:51 Urine Bacteria (Auto) Negative (Negative) 01/08/21 08:51 Blood Type O Positive 01/18/21 07:13 Antibody Screen NEGATIVE 01/18/21 07:13 01/14/21 15:51 Gram Stain - Final Ankle Wound Culture - Final Corynebacterium species 01/08/21 08:42 Aerobic Blood Culture - Final Blood No growth in Aerobic bottle after 5 days. Anaerobic Blood Culture - Final No growth in Anaerobic bottle after 5 days. 01/08/21 08:31 Aerobic Blood Culture - Final Blood No growth in Aerobic bottle after 5 days. Anaerobic Blood Culture - Final No growth in Anaerobic bottle after 5 days. Electrocardiogram Date: 01/08/21 Findings: + RBBB Afib with PVCs, rate 78 Chest X-Ray Date: 01/08/21 XR chest 1V not portable CLINICAL HISTORY: weakness COMPARISON STUDY: Chest CT November 29, 2020. FINDINGS: There is no pneumothorax or pleural effusion. Cardiomegaly is unchanged. Pulmonary vascular congestion without overt pulmonary edema. Skinfold project over each hemithorax. IMPRESSION: 1. No pneumothorax. 2. Cardiomegaly with pulmonary vascular congestion, similar to prior exam. ACT 112: Negative or not required by law. Electronically signed by: Alan Chung M.D. 01/08/2021 11:07 AM Dictated: 01/08/21 1106Transcribed: 01/08/21 1106
[2021-01-23] MEDS ORDERED: ePHEDrine sulfate 50 MG/ML AMP IV PRN (07:14)
[2021-01-23] MEDS ORDERED: ATROPINE SULFATE 0.1 MG/ML 10ML SYR IV PRN (07:14)
[2021-01-23] MEDS ORDERED: LIDOCAINE HCL 1% 20 ML VIAL ONE (07:14)
[2021-01-23] MEDS ORDERED: fentaNYL citrate 100 MCG/2 ML VIAL IV PRN (07:14)
[2021-01-23] MEDS ORDERED: ONDANSETRON INJ 2 MG/ML 2 ML VIAL IV PRN (07:14)
[2021-01-23 07:19] LABS: Calcium 8.5 mg/dl (8.5-10.1); Creatinine Clr Calc Pharmacy 56.1 ml/min; Est GFR (African American) 87.5; Est GFR (Non-African American) 75.5; Potassium 4.5 mmol/L (3.5-5.1)
[2021-01-23] MEDS ORDERED: ceFAZolin 1000MG 1,000 MG/7.5 ML SYR IV ONE (07:59)
--- NOTE | 2021-01-23 08:18 | Operative Report ---
Post Operative Report Pre & Post Diagnosis Operation Date: 01/16/21 09:50 Pre-Op Diagnosis: Left leg hematoma Post-Op Diagnosis: Left leg hematoma Operation Date: 01/18/21 13:20 Pre-Op Diagnosis: Left leg hematoma Post-Op Diagnosis: Left leg hematoma Operation Date: 01/21/21 11:30 Pre-Op Diagnosis: LEFT LEG HEMATOMA Post-Op Diagnosis: LEFT LEG HEMATOMA Operation Date: 01/23/21 07:15 Pre-Op Diagnosis: Left thigh open wound status post evacuation of hematoma Post-Op Diagnosis: Same Operation Date: 01/25/21 08:30 <No data on this case meets the specified criteria> Operation Date: 01/28/21 08:30 <No data on this case meets the specified criteria> I identified the patient and participated in the time-out.: Yes Procedure Operation Date: 01/16/21 09:50 Actual Procedures p Left Thigh Incision and Drainage of Hematoma with Wound Vac Placement(Left) - Pérez Blackmon MD Operation Date: 01/18/21 13:20 Actual Procedures p Left Incision and Drainage Thigh with wound Vac Change(Left) - Baltazar Dill MD Operation Date: 01/21/21 11:30 Actual Procedures p Incision and Drainage Left Thigh with Wound Vac Change(Left) - Baltazar Dill MD Operation Date: 01/23/21 07:15 Actual Procedures p wound vac Change, extension of incision, irrigation (Left) - Pérez Blackmon MD Operation Date: 01/25/21 08:30 <No data on this case meets the specified criteria> Operation Date: 01/28/21 08:30 <No data on this case meets the specified criteria> Surgeon Pérez Blackmon MD Meters Superintendent Devi Hernandez PA-C, Monique Emerson Estimated Blood Loss 5 Findings Consistent with Post-Op Diagnosis Specimens None Drains Wound VAC Anesthesia Type MAC Regional Complications none Disposition Accompanied Patient To Recovery: No Disposition: Recovery Room Indications Mr. Guardado is a week out from evacuation of a left lateral thigh hematoma. This was 1 L in volume and 10 to 12 cm anterior posterior width and 3 cm in length. The resulting cavity is being dressed with a wound VAC to close the tissue down and eliminate the space. He is taken today to the OR for wound VAC change and wound evaluation. This is necessary because of the size of the wound and the wound VAC as well as the undermining present requiring manipulation of the wound to insert the vacuum. Description of Procedure Informed consent obtained. Patient identified. He identified the operative site as the left thigh. I marked with my initials. A preoperative surgical timeout was performed and a preop dose of IV antibiotics was given. He was taken to the operating room and positioned supine on the OR table with a bump under the left hip. After I decided to extend the incision proximally the wound was anesthetized with 1% lidocaine for about 3 inches along its proximal extent. He also was given a dose of intravenous antibiotics at that point. DVT prophylaxis with mobility and mechanical devices postoperatively. The wound VAC was removed. The sponge was densely adherent to the underlying tissue which required irrigation to remove it. The resultant tissue was granulating well and no active bleeding and no purulence. This area was then irrigated with sterile saline. The wound undermined a couple centimeters anterior and about 4 to 5 cm posterior but this was easily accessible by elevating the skin flap. Distally it undermined an inch or less. Proximally it was more like 3 to 3-1/2 inches. To minimize the need to pack proximally I went ahead and anesthetized the skin and prepped the wound area. I then extended the incision about 2 inches proximally and control bleeding with pressure and electrocautery. The wound was then again reirrigated. A black wound VAC sponge was cut in half and then trimmed to the appropriate size which was slightly less than the overall dimensions of the wound and then inserted without difficulty. The wound VAC dressing was then applied in the standard fashion. Adaptic was utilized over the incision and also over a small area of necrosis posteriorly about 1-1/2 cm in diameter. The wound VAC deployed without difficulty. Skin- Prep was utilized. Patient awakened from anesthesia taken to recovery room in stable condition. There were no specimens or complications. Counts were correct and blood loss is estimated to be 5 cc. This was a clean procedure not sterile. At the conclusion the operation spoke patient's informed her of my findings and discussed the future plan. The wound was 10 to 12 cm in anterior to posterior dimension and about 25 cm proximal to distal. Full-thickness down to the fascial layer with good healthy a healing granulation tissue throughout and no evidence of infection or purulence. I attest to the content of the Intraoperative Record and any orders documented therein. Any exceptions are noted below.
--- NOTE | 2021-01-23 08:52 | Anesthesiology Progress Note ---
Date of Service January 23, 2021 Anesthesia Post Procedure Vital Signs Vital Signs: Temp Pulse Pulse Resp BP Pulse Ox 01/23/21 08:45 49 L 14 124/59 L 98 01/23/21 08:35 36.6 C 55 L 16 114/54 L 100 01/23/21 08:25 50 L 13 101/58 L 100 01/23/21 08:15 56 L 12 118/57 L 100 01/23/21 08:09 36.4 C L 50 L 21 112/57 L 93 01/23/21 06:48 36.3 C L 52 L 20 104/57 L 96 01/23/21 05:50 36.4 C L 61 14 116/68 94 01/22/21 23:39 36.9 C 49 L 18 120/54 L 95 01/22/21 15:55 37.0 C 49 L 16 115/50 L 98 Pain Intensity Left Thigh: Pain Intensity: 3 Left Leg: Pain Intensity: 0 Transfer of Care Handoff Completed per policy Notes Mental Status: alert / awake / arousable and participated in evaluation Patient Amnestic to Procedure: Yes Nausea / Vomiting: adequately controlled Pain: adequately controlled Airway Patency, RR, SpO2: stable & adequate BP & HR: stable & adequate Hydration State: stable & adequate Anesthetic Complications: no major complications apparent and Pt Satisfied with anesthetic care
[2021-01-23] MEDS: SPIRONOLACTONE 100 MG TAB PO SCH (09:34)
[2021-01-23] MEDS: LACTULOSE SYRUP 20 GM/30 ML UDC PO SCH (09:34)
[2021-01-23] MEDS: FUROSEMIDE 40 MG TAB PO SCH (10:24)
--- NOTE | 2021-01-23 11:10 | Operative Report ---
Post Operative Report Pre & Post Diagnosis Operation Date: 01/16/21 09:50 Pre-Op Diagnosis: Left leg hematoma Post-Op Diagnosis: Left leg hematoma Operation Date: 01/18/21 13:20 Pre-Op Diagnosis: Left leg hematoma Post-Op Diagnosis: Left leg hematoma Operation Date: 01/21/21 11:30 Pre-Op Diagnosis: LEFT LEG HEMATOMA Post-Op Diagnosis: LEFT LEG HEMATOMA Operation Date: 01/23/21 07:15 Pre-Op Diagnosis: Left thigh hematoma Post-Op Diagnosis: Left thigh hematoma Operation Date: 01/25/21 08:00 <No data on this case meets the specified criteria> Operation Date: 01/28/21 08:00 <No data on this case meets the specified criteria> I identified the patient and participated in the time-out.: Yes Procedure Operation Date: 01/16/21 09:50 Actual Procedures p Left Thigh Incision and Drainage of Hematoma with Wound Vac Placement(Left) - Pérez Blackmon MD Operation Date: 01/18/21 13:20 Actual Procedures p Left Incision and Drainage Thigh with wound Vac Change(Left) - Baltazar Dill MD Operation Date: 01/21/21 11:30 Actual Procedures p Incision and Drainage Left Thigh with Wound Vac Change(Left) - Baltazar Dill MD Operation Date: 01/23/21 07:15 Actual Procedures p Incision and Drainage Left Thigh with Wound Vac Change(Left) - Pérez Blackmon MD Operation Date: 01/25/21 08:00 <No data on this case meets the specified criteria> Operation Date: 01/28/21 08:00 <No data on this case meets the specified criteria> Surgeon Pérez Blackmon MD Second Hand Devi Hernandez PA-C, Monique Emerson Estimated Blood Loss 5 Findings Consistent with Post-Op Diagnosis Specimens none Anesthesia Type RN Sedation Complications none Disposition Accompanied Patient To Recovery: Yes Disposition: Recovery Room Description of Procedure As per 's note, I assisted in prepping and draping, certain parts of the procedure. I attest to the content of the Intraoperative Record and any orders documented therein. Any exceptions are noted below.
--- NOTE | 2021-01-23 22:34 | Hospitalist Progress Note ---
Date of Service January 23, 2021 Assessment & Plan (1) Hematoma of left lower leg: Secondary to fall on rug at home. CT LEFT Femur on admission with hematoma measures approximately 30 x 11 x 7.5 cm MRI with enlargement of hematoma on 01/14 to 31.7 x 12.5 x 7.[address] of January 08, 2021. Orthopedics consulted, Dr. Blackmon POD #7 S/P I&D LEFT THIGH HEMATOMA 01/[address] Blackmon. EBL 25cc. * Per operative report, 1000cc large loculated hematoma evacuated and wound vac placed POD#5 s/p wound vac exchange on 01/[address] Dill. Tolerated well and size decreased with granulation tissue throughout without clot. * Lincoln placed and will get more accurate I&O however weights still inaccurate * --> Continuing lasix 40mg IV daily (WEIGHT NOW FINALLY 72kg/157lb down from 74.6kg on admission) and will continue for tomorrow and continue to monitor (dry weight closer to 148lb per CHF clinic) POD #2 wound vac exchange in OR now with repeat wound vac exchange in OR on 01/23, tolerated well, hb is 9 Anemia secondary to hematoma * Iron studies with : * -->iron 27L, TIBC 312/ferritin 113 wnl, trans % sat low 10, transferrin low 193. * --> Venofer IV given 01/15 and 01/17 and 01/19 Will need repeat therapy evals to see about SNF now that he has had surgery (2) Anemia: * See above, secondary to #1 * Would place on PO iron once constipation resolved given iron low at 27, trans sat % 10L, transferrin 193L, TIBC wnl at 312 and ferritin 113 * Venofer x 1 on 01/15, 01/17, 01/19 * 2 units PRBC prior to surgery and 1 unit PRBC given with surgery on 01/16 * H/h has been stable, no further bleeding, Hb is 9 today, BP stable (3) Acute on chronic diastolic (congestive) heart failure: * due to RIGHT SIDED HEART FAILURE/CIRRHOSIS * -- secondary to medication non-compliance/cognitive decline. * Was on Lasix 40mg QOD during admission but was on daily dose with 100mg spironolactone * BNP 3798 on 01/14 * ECHO with evidence for volume overload with elevated RVSP * Continues on Lasix 40mg PO daily in addition to 100mg spironolactone daily, Cr is stable and making urine * weight stable (4) Hepatic cirrhosis: * Unclear whether the patient is taking spironolactone or furosemide at the current time. * no further work up, he is DNR (5) Chronic venous insufficiency: * Stasis changes to b/l LE however with edema/fall and hx afib will get Doppler to r/o DVT * Dopplers NEGATIVE for DVT * Vascular also consulted given plans for outpatient Venaseal to see about getting this done sooner/while inpatient? * --> Plans for outpatient intervention * Was to complete course of doxycycline --> did have dose left. 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 * Not on anticoagulation - unclear reason for this although contraindicated with current hematoma --> had issues in past with intraocular bleeding as well as hematuria last admission while on Lovenox * Venous Dopplers 01/14 NEGATIVE for DVT * Rate controlled on no medication (7) HTN (hypertension), benign: * Chronic. BP controlled 110/51 and continues to tolerate diuresis * On lasix/spironolactone as above * Previously on carvedilol, SATNAM in past -- unclear why this was discontinued (8) Obstructive sleep apnea syndrome: * Patient reports not on CPAP at home. * With R sided HF would benefit but patient continues to decline (9) Osteomyelitis of left ankle: * Chronic * No surgical intervention planned. * [facility] - just completed course of Doxycycline for 14 days per wound care (did not complete full course) for MSSA of wound in office * Repeat cx with pin-point growth, re-incubating --> corynebacterium * CRP elevated 6.7, ESR 70 (but could be from age?) --> IMPROVING ON REPEAT * no WBC/afebrile * Placed back on doxy on 01/14, switched to PO 01/17 and would complete 7-10 day course. Continued for erythema which is improved but now some erythema around wound vac as well * Continued wound care while inpatient Palliative consultation undertaken given LACE score >=11 for goals of care Patient changed to DNR/DNI Dispo: continued inpatient stay, plan for additional wound vac changes per ortho Will need repeat therapy evals and look back into SNF/rehab at d/c Admission and Anticipated Discharge Date Admission Date: January 08, 2021 Subjective patient fine today, tolerated wound vac exchange in the OR eating well, no dyspnea, no chest pain labs show that Hb is 9, Cr is stable, K is normal he is ready to work with therapy Review of Systems Review of Systems: All systems reviewed & are unremarkable except as noted in Subjective Constitutional: + weakness; no fever and no fatigue Respiratory: no cough and no dyspnea Cardiovascular: no chest pain, no palpitations and no edema Gastrointestinal: no abdominal pain, no nausea, no vomiting, no constipation and no diarrhea/loose stools Physical Exam Constitutional: well developed, + thin and + frail appearing; no acute distress Neck: trachea midline, no thyromegaly Respiratory: normal respiratory effort, lungs clear to auscultation Cardiovascular: Rate/Rhythm: regular rate and regular rhythm Heart Sounds: normal S1 and normal S2; no murmur Extremities: normal capillary refill and + edema (+1 pedal edema) Gastrointestinal (Abdomen): normal bowel sounds, soft, nontender, no hepatosplenomegaly Musculoskeletal: no cyanosis or clubbing, extremities motor strength 5/5 Skin: + turgor decreased, + wound (left thigh, from hematoma drainage, now with wound vac) and + dry skin Neurologic: patellar DTR's 2+ bilat, sensation intact and PERRL, EOMI, accommodation nl, no face palsy, no dysarthria Psychiatric: A+Ox3, euthymic affect Lymphatic: no cervical or axillary lymphadenopathy Results & Data Results & Data ([facility]) Vital Signs (Past 12 Hours) Vital Signs Temp Pulse Pulse Resp BP Pulse Ox 01/23/21 19:06 36.8 C 57 L 20 106/55 L 93 01/23/21 15:24 36.7 C 67 18 105/46 L 93 01/23/21 13:00 36.5 C 70 16 106/43 L 93 01/23/21 11:13 36.5 C 68 16 110/52 L 94 Laboratory Results Laboratory Results - last 24 hr 04/28/21 04/28/21 04/28/21 06:17 06:17 06:17 WBC 5.84 RBC 3.09 L Hgb 9.3 L Hct 29.6 L MCV 95.8 MCH 30.1 MCHC 31.4 L RDW Std Deviation 64.8 H RDW Coeff of Chel 18.8 H Plt Count 245 MPV 8.6 PT 12.8 H INR 1.3 H Sodium 136 Potassium 4.5 Chloride 101 Carbon Dioxide 33 H Anion Gap 2.0 L BUN 29 H Creatinine 0.91 Est Cr Clr Drug Dosing 56.1 Est GFR ( Amer) 87.5 Est GFR (Non-Af Amer) 75.5 BUN/Creatinine Ratio 32.0 H Glucose 90 Calcium 8.5 Medications Administered Current Inpatient Medications Acetaminophen (Acetaminophen 325 Mg Tab) 650 mg PO Q4H PRN PRN Reason: pain/fever Stop: 02/07/21 13:26 Last Admin: 01/16/21 19:54 Dose: 650 mg Documented by: Bisacodyl (Bisacodyl 10 Mg Supp) 10 mg [place] DAILY PRN PRN Reason: Constipation Stop: 02/15/21 13:17 Furosemide (Furosemide 40 Mg Tab) 40 mg PO QAM [facility] Stop: 02/22/21 08:59 Last Admin: 01/23/21 10:24 Dose: 40 mg Documented by: Lactulose (Lactulose Syrup 20 Gm/30 Ml Udc) 40 gm PO QAM [facility] Stop: 02/20/21 08:59 Last Admin: 01/23/21 09:34 Dose: 40 gm Documented by: Magnesium Hydroxide (Magnesium Hydroxide Susp 30 Ml Udc) 30 ml PO Q6H PRN PRN Reason: Constipation Stop: 02/15/21 13:17 Melatonin (Melatonin 3 Mg Tab) 3 mg PO HS PRN PRN Reason: Sleep Stop: 02/12/21 23:23 Last Admin: 01/21/21 20:27 Dose: 3 mg Documented by: Naloxone HCl (Naloxone Hcl 0.4 Mg/1 Ml Vial/Carp) 0.1 mg IV Q5M PRN PRN Reason: Oversedation/Resp Depression Stop: 02/15/21 13:17 Ondansetron HCl (Ondansetron Inj 2 Mg/Ml 2 Ml Vial) 4 mg IV Q6H PRN PRN Reason: Nausea And Vomiting Stop: 02/15/21 13:17 Polyethylene Glycol (Polyethylene (Miralax) 17 Gm Pack) 17 gm PO BID PRN PRN Reason: Constipation Stop: 02/11/21 01:02 Last Admin: 01/20/21 20:01 Dose: 17 gm Documented by: Spironolactone (Spironolactone 100 Mg Tab) 100 mg PO QAM [facility] Stop: 02/14/21 08:59 Last Admin: 01/23/21 09:34 Dose: 100 mg Documented by: Tramadol HCl (Tramadol Hcl 50 Mg Tablet) 50 - 100 mg PO Q4H PRN PRN Reason: Pain & Pre PT Stop: 02/15/21 13:17 Last Admin: 01/18/21 01:08 Dose: 50 mg Documented by: PG Care Time/CCT Total # of Minutes Spent Total Time Spent with Patient: Total time spent is greater than 50% in coordination of care (as documented) at patient's floor/unit and/or counseling patient: Coding Level of Care Code 73972 Subseq Hosp Care Lvl 2 Diagnoses Hematoma of left lower leg S80.12XA Anemia D64.9 Acute on chronic diastolic (congestive) heart failure I50.33 Hepatic cirrhosis K74.60 Chronic venous insufficiency I87.2 Atrial fibrillation I48.20 Atrial fibrillation type: unspecified chronic HTN (hypertension), benign I10 Obstructive sleep apnea syndrome G47.33 Osteomyelitis of left ankle M86.9 (1) Atrial fibrillation Atrial fibrillation type: unspecified chronic Qualified Code(s): I48.20 - Chronic atrial fibrillation, unspecified
[2021-01-24] MEDS: FUROSEMIDE 40 MG TAB PO SCH (08:41)
[2021-01-24] MEDS: SPIRONOLACTONE 100 MG TAB PO SCH (08:41)
[2021-01-24] MEDS: LACTULOSE SYRUP 20 GM/30 ML UDC PO SCH (08:41)
--- NOTE | 2021-01-24 11:55 | Orthopedic Progress Note ---
Date of Service January 24, 2021 Assessment & Plan (1) Hematoma of left thigh: N.p.o. after midnight. Plan is to return to the operating room in the morning for wound VAC change and assessment of wound. Informed consent obtained. Patient is not on any antibiotics. He does not require any p reoperative antibiotics. He is not on any blood thinners. (2) Acute blood loss anemia: Admission and Anticipated Discharge Date Admission Date: January 08, 2021 Subjective Doing well. No complaints of pain in left thigh. Tolerating regular diet. states that he has not done much walking, he would like to do more. Physical Exam Physical Exam: Left thigh wound vac functioning. No pain with palpation. No distal edema. Able to actively SLR LLE and do full ROM left knee. Full ankle ROM left ankle. No calf tenderness. Results & Data ([facility]) Vital Signs (Past 12 Hours) Vital Signs Temp Pulse Pulse Resp BP Pulse Ox 01/24/21 07:12 36.7 C 65 16 125/54 L 92 01/24/21 03:12 36.9 C 54 L 16 109/56 L 95 (1) Hematoma of left thigh Encounter type: initial encounter Qualified Code(s): S70.12XA - Contusion of left thigh, initial encounter
--- NOTE | 2021-01-24 13:06 | Hospitalist Progress Note ---
Date of Service January 24, 2021 Assessment & Plan (1) Hematoma of left lower leg: Secondary to fall on rug at home. CT LEFT Femur on admission with hematoma measures approximately 30 x 11 x 7.5 cm MRI with enlargement of hematoma on 01/14 to 31.7 x 12.5 x 7.[address] of January 08, 2021. Orthopedics consulted, Dr. Blackmon POD #8 S/P I&D LEFT THIGH HEMATOMA 01/[address] Blackmon. EBL 25cc. * Per operative report, 1000cc large loculated hematoma evacuated and wound vac placed POD#6 s/p wound vac exchange on 01/[address] Dill. Tolerated well and size decreased with granulation tissue throughout without clot. * Lincoln placed and will get more accurate I&O however weights still inaccurate * --> Continuing lasix 40mg IV daily (WEIGHT NOW FINALLY 72kg/157lb down from 74.6kg on admission) and will continue for tomorrow and continue to monitor (dry weight closer to 148lb per CHF clinic) POD #3 wound vac exchange in OR POD #1 repeat wound vac exchange in OR on 01/23, tolerated well, hb is 9 on 01/23 Anemia secondary to hematoma * Iron studies with : * -->iron 27L, TIBC 312/ferritin 113 wnl, trans % sat low 10, transferrin low 193. * --> Venofer IV given 01/15 and 01/17 and 01/19 Will need repeat therapy evals to see about SNF now that he has had surgery (2) Anemia: * See above, secondary to #1 * Would place on PO iron once constipation resolved given iron low at 27, trans sat % 10L, transferrin 193L, TIBC wnl at 312 and ferritin 113 * Venofer x 1 on 01/15, 01/17, 01/19 * 2 units PRBC prior to surgery and 1 unit PRBC given with surgery on 01/16 * H/h has been stable, no further bleeding, Hb is 9 01/23, BP stable (3) Acute on chronic diastolic (congestive) heart failure: * due to RIGHT SIDED HEART FAILURE/CIRRHOSIS * -- secondary to medication non-compliance/cognitive decline. * Was on Lasix 40mg QOD during admission but was on daily dose with 100mg spironolactone * BNP 3798 on 01/14 * ECHO with evidence for volume overload with elevated RVSP * Continues on Lasix 40mg PO daily in addition to 100mg spironolactone daily, Cr is stable and making urine * weight stable (4) Hepatic cirrhosis: * Unclear whether the patient is taking spironolactone or furosemide at the current time. * no further work up, he is DNR (5) Chronic venous insufficiency: * Stasis changes to b/l LE however with edema/fall and hx afib will get Doppler to r/o DVT * Dopplers NEGATIVE for DVT * Vascular also consulted given plans for outpatient Venaseal to see about getting this done sooner/while inpatient? * --> Plans for outpatient intervention * Was to complete course of doxycycline --> did have dose left. 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 * Not on anticoagulation - unclear reason for this although contraindicated with current hematoma --> had issues in past with intraocular bleeding as well as hematuria last admission while on Lovenox * Venous Dopplers 01/14 NEGATIVE for DVT * Rate controlled on no medication (7) HTN (hypertension), benign: * Chronic. BP controlled 110/51 and continues to tolerate diuresis * On lasix/spironolactone as above * Previously on carvedilol, SATNAM in past -- unclear why this was discontinued (8) Obstructive sleep apnea syndrome: * Patient reports not on CPAP at home. * With R sided HF would benefit but patient continues to decline (9) Osteomyelitis of left ankle: * Chronic * No surgical intervention planned. * No antibiotics per [facility] infectious disease - just completed course of Doxycycline for 14 days per wound care (did not complete full course) for MSSA of wound in office * Repeat cx with pin-point growth, re-incubating --> corynebacterium * CRP elevated 6.7, ESR 70 (but could be from age?) --> IMPROVING ON REPEAT * no WBC/afebrile * Placed back on doxy on 01/14, switched to PO 01/17 and would complete 7-10 day course. Continued for erythema which is improved but now some erythema around wound vac as well * Continued wound care while inpatient Palliative consultation undertaken given LACE score >=11 for goals of care Patient changed to DNR/DNI Dispo: continued inpatient stay, plan for additional wound vac changes per ortho Will need repeat therapy evals and look back into SNF/rehab at d/c Admission and Anticipated Discharge Date Admission Date: January 08, 2021 Subjective no issues today, eating and drinking well, no difficulty breathing vitals stable, tolerating medications plan for OR again tomorrow for wound vac exchange Review of Systems Review of Systems: All systems reviewed & are unremarkable except as noted in Subjective Constitutional: + fatigue and + weakness; no fever Respiratory: no cough and no dyspnea Cardiovascular: no chest pain Gastrointestinal: no abdominal pain, no nausea, no vomiting, no constipation and no diarrhea/loose stools Physical Exam Constitutional: well developed, + thin and + frail appearing; no acute distress Neck: trachea midline, no thyromegaly Respiratory: normal respiratory effort, lungs clear to auscultation Cardiovascular: Rate/Rhythm: regular rate and regular rhythm Heart Sounds: normal S1 and normal S2; no murmur Extremities: normal capillary refill and + edema (+1 pedal edema) Gastrointestinal (Abdomen): normal bowel sounds, soft, nontender, no hepatosplenomegaly Musculoskeletal: no cyanosis or clubbing, extremities motor strength 5/5 Skin: + turgor decreased, + wound (left thigh, from hematoma drainage, now with wound vac) and + dry skin Neurologic: patellar DTR's 2+ bilat, sensation intact and PERRL, EOMI, accommodation nl, no face palsy, no dysarthria Psychiatric: A+Ox3, euthymic affect Lymphatic: no cervical or axillary lymphadenopathy Results & Data Results & Data ([facility]) Vital Signs (Past 12 Hours) Vital Signs Temp Pulse Pulse Resp BP Pulse Ox 01/24/21 07:12 36.7 C 65 16 125/54 L 92 01/24/21 03:12 36.9 C 54 L 16 109/56 L 95 Medications Administered Current Inpatient Medications Acetaminophen (Acetaminophen 325 Mg Tab) 650 mg PO Q4H PRN PRN Reason: pain/fever Stop: 02/07/21 13:26 Last Admin: 01/16/21 19:54 Dose: 650 mg Documented by: Bisacodyl (Bisacodyl 10 Mg Supp) 10 mg [place] DAILY PRN PRN Reason: Constipation Stop: 02/15/21 13:17 Furosemide (Furosemide 40 Mg Tab) 40 [facility] Stop: 02/22/21 08:59 Last Admin: 01/24/21 08:41 Dose: 40 mg Documented by: Lactulose (Lactulose Syrup 20 Gm/30 Ml Udc) 40 gm [facility] Stop: 02/20/21 08:59 Last Admin: 01/24/21 08:41 Dose: 40 gm Documented by: Magnesium Hydroxide (Magnesium Hydroxide Susp 30 Ml Udc) 30 ml PO Q6H PRN PRN Reason: Constipation Stop: 02/15/21 13:17 Melatonin (Melatonin 3 Mg Tab) 3 mg PO HS PRN PRN Reason: Sleep Stop: 02/12/21 23:23 Last Admin: 01/21/21 20:27 Dose: 3 mg Documented by: Naloxone HCl (Naloxone Hcl 0.4 Mg/1 Ml Vial/Carp) 0.1 mg IV Q5M PRN PRN Reason: Oversedation/Resp Depression Stop: 02/15/21 13:17 Ondansetron HCl (Ondansetron Inj 2 Mg/Ml 2 Ml Vial) 4 mg IV Q6H PRN PRN Reason: Nausea And Vomiting Stop: 02/15/21 13:17 Polyethylene Glycol (Polyethylene (Miralax) 17 Gm Pack) 17 gm PO BID PRN PRN Reason: Constipation Stop: 02/11/21 01:02 Last Admin: 01/20/21 20:01 Dose: 17 gm Documented by: Spironolactone (Spironolactone 100 Mg Tab) 100 mg PO [facility] Stop: 02/14/21 08:59 Last Admin: 01/24/21 08:41 Dose: 100 mg Documented by: Tramadol HCl (Tramadol Hcl 50 Mg Tablet) 50 - 100 mg PO Q4H PRN PRN Reason: Pain & Pre PT Stop: 02/15/21 13:17 Last Admin: 01/18/21 01:08 Dose: 50 mg Documented by: PG Care Time/CCT Total # of Minutes Spent Total Time Spent with Patient: Total time spent is greater than 50% in coordination of care (as documented) at patient's floor/unit and/or counseling patient: Coding Level of Care Code 20071 Subseq Hosp Care Lvl 2 Diagnoses Hematoma of left lower leg S80.12XA Anemia D64.9 Acute on chronic diastolic (congestive) heart failure I50.33 Hepatic cirrhosis K74.60 Chronic venous insufficiency I87.2 Atrial fibrillation I48.20 Atrial fibrillation type: unspecified chronic HTN (hypertension), benign I10 Obstructive sleep apnea syndrome G47.33 Osteomyelitis of left ankle M86.9 (1) Atrial fibrillation Atrial fibrillation type: unspecified chronic Qualified Code(s): I48.20 - Chronic atrial fibrillation, unspecified
--- NOTE | 2021-01-24 16:22 | Anesthesiology Consultation ---
Date of Service January 24, 2021 Assessment & Plan (1) Encounter for pre-operative examination: Chart Review Chart Review: Acceptable Risk for Surgery and Patient NOT seen in Pre Admission Testing Consults Requested none History Surgery Operation Date: 01/16/21 09:50 Proposed Procedures p Left Thigh Incision and Drainage of Hematoma with Wound Vac Placement - Pérez Blackmon MD Operation Date: 01/18/21 13:20 Proposed Procedures p Left Incision and Drainage Thigh with wound Vac Change - Baltazar Dill MD Operation Date: 01/21/21 11:30 Proposed Procedures p Incision and Drainage Left Thigh with Wound Vac Change - Baltazar Dill MD Operation Date: 01/23/21 07:15 Proposed Procedures p Incision and Drainage thigh Left with Wound Vac Change - Pérez Blackmon MD Operation Date: 01/25/21 08:00 Proposed Procedures p Incision and Drainage Thigh Left With Wound Vac Change - Pérez Blackmon MD Operation Date: 01/28/21 08:15 Proposed Procedures p Incision and Drainage Thigh Left With Wound Vac Change - Pérez Blackmon MD Height/Weight Height: 5 ft 10 in Weight: 68.6 kg Allergies Allergy/AdvReac Type Severity Reaction Status Date / Time merbromin Allergy Intermediate ALLERGIC Verified 01/08/21 09:06 TO MERCUROCHROME, RASH mercury (elemental) AdvReac Intermediate Rash Verified 01/08/21 09:06 sulfamethoxazole AdvReac Intermediate GI UPSET, Verified 01/08/21 09:06 FEVER, HEADACHE trimethoprim AdvReac Intermediate GI UPSET, Verified 01/08/21 09:06 FEVER, HEADACHE ciprofloxacin AdvReac Mild GI SYMPTOMS Verified 01/08/21 09:06 Medications Home Medications Medication Instructions Recorded Confirmed Last Taken No Known Home Medications 01/08/21 01/08/21 Unknown Active Medications Generic Name Dose Route Start Last Admin Trade Name Freq PRN Reason Stop Dose Admin Acetaminophen 650 mg 01/08/21 13:27 01/16/21 19:54 Acetaminophen 325 Mg Tab PO 02/07/21 13:26 650 mg Q4H PRN Administration pain/fever Furosemide 40 mg 01/23/21 09:00 01/24/21 08:41 Furosemide 40 Mg Tab PO 02/22/21 08:59 40 mg QAM TONY Administration Lactulose 40 gm 01/21/21 09:00 01/24/21 08:41 Lactulose Syrup 20 Gm/30 Ml Udc PO 02/20/21 08:59 40 gm QAM TONY Administration Melatonin 3 mg 01/13/21 23:24 01/21/21 20:27 Melatonin 3 Mg Tab PO 02/12/21 23:23 3 mg HS PRN Administration Sleep Polyethylene Glycol 17 gm 01/12/21 01:03 01/20/21 20:01 Polyethylene (Miralax) 17 Gm Pack PO 02/11/21 01:02 17 gm BID PRN Administration Constipation Spironolactone 100 mg 01/15/21 09:00 01/24/21 08:41 Spironolactone 100 Mg Tab PO 02/14/21 08:59 100 mg QAM TONY Administration Tramadol HCl 50 - 100 mg 01/16/21 13:18 01/18/21 01:08 Tramadol Hcl 50 Mg Tablet PO 02/15/21 13:17 50 mg Q4H PRN Administration Pain & Pre PT NPO Date Last Intake of Fluids: 01/23/21 Time Last Intake of Fluids: 00:00 Last Intake of Fluids Comment: sips water with am medications Date Last Intake of Solids: 01/23/21 Time Last Intake of Solids: 00:00 Past Medical History Medical History Actinic keratosis Anemia Aortic aneurysm Aortic stenosis, mild Arrhythmia HX Atrial fibrillation Bifascicular bundle branch block BPH (benign prostatic hyperplasia) Bronchitis 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 Chronic cough Chronic obstructive pulmonary disease Duodenal ulcer HX Dyspnea Enlarged prostate with lower urinary tract symptoms (LUTS) History of duodenal ulcer History of edema History of gross hematuria History of hepatitis History of retinal hemorrhage Hypertension Hypoxia Laceration of scalp with delay in treatment Left knee DJD Left shoulder pain Liver cirrhosis Macular degeneration Pneumonia ON ANTIBIOTICS CURRENTLY X 5 DAYS THRU PCP Positive JESSICA (antinuclear antibody) Pulmonary hypertension Retinal hemorrhage Right-sided heart failure Sleep apnea Traumatic hematoma of left upper arm Traumatic open wound of right lower leg with delayed healing Upper respiratory infection 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 Mother , Age 34 No problems noted. Denies family history of Colon cancer Ovarian cancer Prostate cancer Myocardial infarction Breast cancer Past Surgical History Surgical History History of cardiac radiofrequency ablation S/P History of colonoscopy History of esophagogastroduodenoscopy (EGD) History of gastrostomy History of total knee replacement R/L Hx of transurethral resection of prostate Social History Smoking Status: Former smoker tobacco type: pipe Hx Alcohol Use: Yes Alcohol type: wine alcohol intake frequency: a few times a week Alcohol Intake Frequency Comment: sometimes with dinner Hx Substance Use: No substance use type: does not use Physical Exam Vital Signs Last Vital Signs Temp 36.7 C 01/24/21 15:00 Pulse 62 01/24/21 15:00 Resp 16 01/24/21 15:00 BP 113/55 L 01/24/21 15:00 Pulse Ox 92 01/24/21 15:00 Testing Laboratory Results 01/23/21 06:17 01/23/21 06:17 PT 12.8 Seconds (9.0-12.0) H 01/23/21 06:17 INR 1.3 (0.9-1.1) H 01/23/21 06:17 APTT 48.7 Seconds (21.0-31.0) H* 01/08/21 08:42 Urine Color Dark Yellow 01/08/21 08:51 Urine Appearance Clear (Clear) 01/08/21 08:51 Urine pH 6.0 (4.5-7.5) 01/08/21 08:51 Ur Specific [place] 1.020 (1.000-1.030) 01/08/21 08:51 Urine Protein Trace (Negative) H 01/08/21 08:51 Urine Glucose (UA) Negative (Negative) 01/08/21 08:51 Urine Ketones Negative (Negative) 01/08/21 08:51 Urine Nitrite Negative (Negative) 01/08/21 08:51 Ur Leukocyte Esterase 1+ (Negative) H 01/08/21 08:51 Urine WBC (Auto) 5-10 /hpf (0-5) H 01/08/21 08:51 Urine RBC (Auto) 0-4 /hpf (0-4) 01/08/21 08:51 U Hyaline Cast (Auto) 1-5 /lpf (0-5) 01/08/21 08:51 U Epithel Cells (Auto) 10-20 /lpf (0-5) H 01/08/21 08:51 Urine Bacteria (Auto) Negative (Negative) 01/08/21 08:51 Blood Type O Positive 01/18/21 07:13 Antibody Screen NEGATIVE 01/18/21 07:13 01/14/21 15:51 Gram Stain - Final Ankle Wound Culture - Final Corynebacterium species 01/08/21 08:42 Aerobic Blood Culture - Final Blood No growth in Aerobic bottle after 5 days. Anaerobic Blood Culture - Final No growth in Anaerobic bottle after 5 days. 01/08/21 08:31 Aerobic Blood Culture - Final Blood No growth in Aerobic bottle after 5 days. Anaerobic Blood Culture - Final No growth in Anaerobic bottle after 5 days. Electrocardiogram Date: 01/08/21 Findings: + RBBB Afib with PVCs, rate 78 Chest X-Ray Date: 01/08/21 XR chest 1V not portable CLINICAL HISTORY: weakness COMPARISON STUDY: Chest CT November 29, 2020. FINDINGS: There is no pneumothorax or pleural effusion. Cardiomegaly is unchanged. Pulmonary vascular congestion without overt pulmonary edema. Skinfold project over each hemithorax. IMPRESSION: 1. No pneumothorax. 2. Cardiomegaly with pulmonary vascular congestion, similar to prior exam. ACT 112: Negative or not required by law. Electronically signed by: Alan Chung M.D. 01/08/2021 11:07 AM Dictated: 01/08/21 1106Transcribed: 01/08/21 1106 Echocardiogram Date: 01/14/21 EF: 50-55 Other Findings: + atrial enlargement (biatrial) and + RVH (mild to moderate dilation) RVSP 40-50 mmHg, RV septal flattening Cervical Spine Date: 01/08/21 CT OF THE CERVICAL SPINE WITHOUT CONTRAST CLINICAL HISTORY: Neck pain following fall. COMPARISON STUDY: Cervical spine CT November 07, 2019. TECHNIQUE: Helical axial images of the cervical spine were obtained without IV contrast. Sagittal and coronal reconstructions were viewed. Automated exposure control was utilized for the study. A dose lowering technique was utilized adhering to the principles of ALARA. FINDINGS: Reversal of the normal cervical lordosis is again noted. Vertebral body heights are maintained. No acute cervical spine fracture or subluxation is present. There is no prevertebral edema. Facet joints are intact. Severe multilevel disc space narrowing, osteophytosis and facet arthrosis is unchanged. IMPRESSION: 1. No acute cervical spine fracture or subluxation. 2. Severe multilevel degenerative disc disease and facet arthrosis within the cervical spine. ACT 112: Negative or not required by law. Electronically signed by: Alan Chung M.D. 01/08/2021 9:51 AM Dictated: 01/08/21 0946
[2021-01-25] MEDS ORDERED: LIDOCAINE HCL 2% 2 ML VIAL/AMP(20MG/ML) INFIL ONE ×2 (07:10→14:29)
[2021-01-25] MEDS ORDERED: fentaNYL citrate 100 MCG/2 ML VIAL ONE ×2 (07:10→14:30)
[2021-01-25] MEDS ORDERED: ONDANSETRON INJ 2 MG/ML 2 ML VIAL ONE ×2 (07:10→14:29)
[2021-01-25] MEDS ORDERED: PROPOFOL IV EMULSION 10 MG/ML 20 ML VIAL IV ONE ×2 (07:10→14:29)
[2021-01-25] MEDS ORDERED: fentaNYL citrate 100 MCG/2 ML VIAL IV PRN ×2 (07:27→14:58)
[2021-01-25] MEDS ORDERED: ATROPINE SULFATE 0.1 MG/ML 10ML SYR IV PRN ×2 (07:27→14:58)
[2021-01-25] MEDS ORDERED: ePHEDrine sulfate 50 MG/ML AMP IV PRN ×2 (07:27→14:58)
[2021-01-25] MEDS ORDERED: ONDANSETRON INJ 2 MG/ML 2 ML VIAL IV PRN ×2 (07:27→14:58)
--- NOTE | 2021-01-25 07:34 | History & Physical Bridge Note ---
Date of Service January 25, 2021 History & Physical Bridge Note I have examined the patient, reviewed the History & Physical and in the interval since the performance of the History & Physical I have noted the following changes of clinical significance: no changes noted
--- NOTE | 2021-01-25 08:26 | Operative Report ---
Post Operative Report Pre & Post Diagnosis Operation Date: 01/16/21 09:50 Pre-Op Diagnosis: Left leg hematoma Post-Op Diagnosis: Left leg hematoma Operation Date: 01/18/21 13:20 Pre-Op Diagnosis: Left leg hematoma Post-Op Diagnosis: Left leg hematoma Operation Date: 01/21/21 11:30 Pre-Op Diagnosis: LEFT LEG HEMATOMA Post-Op Diagnosis: LEFT LEG HEMATOMA Operation Date: 01/23/21 07:15 Pre-Op Diagnosis: Left thigh hematoma Post-Op Diagnosis: Left thigh hematoma Operation Date: 01/25/21 08:00 Pre-Op Diagnosis: Left Leg Hematoma Post-Op Diagnosis: Left Leg Hematoma, skin necrosis. Operation Date: 01/28/21 08:15 <No data on this case meets the specified criteria> I identified the patient and participated in the time-out.: Yes Procedure Operation Date: 01/16/21 09:50 Actual Procedures p Left Thigh Incision and Drainage of Hematoma with Wound Vac Placement(Left) - Pérez Blackmon MD Operation Date: 01/18/21 13:20 Actual Procedures p Left Incision and Drainage Thigh with wound Vac Change(Left) - Baltazar Dill MD Operation Date: 01/21/21 11:30 Actual Procedures p Incision and Drainage Left Thigh with Wound Vac Change(Left) - Baltazar Dlil MD Operation Date: 01/23/21 07:15 Actual Procedures p Incision and Drainage Left Thigh with Wound Vac Change(Left) - Pérez Blackmon MD Operation Date: 01/25/21 08:00 Actual Procedures p Incision and Drainage Thigh Left With Wound Vac Change(Left) - Pérez Blackmon MD Operation Date: 01/28/21 08:15 <No data on this case meets the specified criteria> Surgeon Pérez Blackmon MD Slurry Control Tender Devi Hernandez PA-C, Monique Emerson Estimated Blood Loss 5 Findings Consistent with Post-Op Diagnosis Specimens None Drains Wound VAC Anesthesia Type MAC Complications none Disposition Accompanied Patient To Recovery: No Disposition: Recovery Room Indications Patient presents for his routine wound VAC change in the operating room necess itated by the size and acuity of the wound including undermining of the edges requiring packing of the sponge. Description of Procedure Informed consent obtained. Patient identified. He identified the operative site as the left thigh. I marked with my initials. Preoperative antibiotics were not indicated. DVT prophylaxis not indicated. Positioned supine with a bump under the left hip. Timeout performed. Prior wound VAC was removed. This was initially attempted without sedation but as we attempted to remove the sponge the patient experienced pain. This necessitated giving some mild conscious sedation. There was some bleeding of the upper skin edge at the junction of the proximal middle third which required some electrocautery. There was a small hematoma at the proximal extent of the wound at the apex. This was debrided. The wound was irrigated with saline. Electrocautery was utilized to extinguish some oozing at the posterior margin of the proximal apex. The wound was dry at the time of the dressing change. After the irrigation a black wound foam sponge was made slightly smaller than the existing opening and put into place. There was an area posteriorly and distal about 3 cm in size and at least 4 mm in depth. Where there was partial thickness skin necrosis related to the original hematoma. This was black-olvera tissue which was debrided sharply with pickups and a scalpel removing the necrotic tissue revealing bleeding healthy subcutaneous tissue below it. This went through the epidermis and dermis down into the subcutaneous fat but did not contraindicate with the large cavity. A wound VAC sponge was applied to this bridging it over to the main area over skin prep and plastic. The wound VAC was applied and deployed without difficulty. The main cavity was full-thickness down to the fascia and vastus lateralis. Granulating extremely well and getting smaller in size with no evidence of infection no purulence. There was bloody drainage which may have been related to the proximal hematoma which was about 2 or 3 cm in size. Patient tolerated the procedure well. He was taken to recovery room in stable condition. There were no specimens or complications blood loss was 3 cc. At the conclusion of the operation counts were correct. Plan will be to return to the OR Thursday for wound VAC change. Continue wound VAC over the weekend. I attest to the content of the Intraoperative Record and any orders documented therein. Any exceptions are noted below.
--- NOTE | 2021-01-25 08:54 | Anesthesiology Progress Note ---
Date of Service January 25, 2021 Anesthesia Post Procedure Vital Signs Vital Signs: Temp Pulse Pulse Resp BP Pulse Ox 01/25/21 08:50 99.0 F 60 22 103/50 L 100 01/25/21 08:40 59 L 15 108/47 L 100 01/25/21 08:30 98.4 F 63 16 107/51 L 94 01/25/21 07:14 97.9 F 51 L 20 105/56 L 94 01/25/21 07:09 97.9 F 61 18 120/62 92 01/24/21 23:49 98.1 F 54 L 18 104/49 L 92 01/24/21 15:00 98.1 F 62 16 113/55 L 92 Pain Intensity Left Thigh: Pain Intensity: 3 Left Leg: Pain Intensity: 0 Transfer of Care Handoff Completed per policy Notes Mental Status: alert / awake / arousable and participated in evaluation Patient Amnestic to Procedure: Yes Nausea / Vomiting: adequately controlled Pain: adequately controlled Airway Patency, RR, SpO2: stable & adequate BP & HR: stable & adequate Hydration State: stable & adequate Anesthetic Complications: no major complications apparent and Pt Satisfied with anesthetic care
[2021-01-25 09:41] LABS: Basophils # (auto) 0.04 K/uL (0-0.2); Basophils % (auto) 0.9 %; Eosinophils # (auto) 0.25 K/uL (0-0.5); Eosinophils % (auto) 5.4 %; Hematocrit (blood only) 29.1 % (42-52); Hemoglobin 9.2 g/dL (14.0-18.0); Immature Granulocytes # (auto) 0.02 K/uL (0.00-0.02); Immature Granulocytes % (auto) 0.4 %; Lymphocytes # (auto) 0.94 K/uL (1.2-3.4); Lymphocytes % (auto) 20.4 %; Mean Corpuscular Hemoglobin 30.3 pg (25-34); Mean Corpuscular Hgb Conc 31.6 g/dL (32-36); Mean Corpuscular Volume 95.7 fL (80-100); Mean Platelet Volume 8.5 fL (7.4-10.4); Monocytes # (auto) 0.67 K/uL (0.11-0.59); Monocytes % (auto) 14.6 %; Neutrophils # (auto) 2.68 K/uL (1.4-6.5); Neutrophils % (auto) 58.3 %; Platelet Count 197 K/uL (130-400); RDW Coefficient of Variation 18.1 % (11.5-14.5); RDW Standard Deviation 63.6 fL (36.4-46.3); Red Blood Count 3.04 M/uL (4.7-6.1)
[2021-01-25] MEDS: FUROSEMIDE 40 MG TAB PO SCH (10:02)
[2021-01-25] MEDS: SPIRONOLACTONE 100 MG TAB PO SCH (10:02)
[2021-01-25] MEDS: LACTULOSE SYRUP 20 GM/30 ML UDC PO SCH (10:02)
[2021-01-25] MEDS ORDERED: SODIUM CHLORIDE 0.9% 250 ML IV PRN ×3 (11:21→16:34)
[2021-01-25] MEDS ORDERED: TRANEXAMIC ACID / 0.7% NACL 1,000 MG/100 ML BAG IV STA (11:41)
[2021-01-25] MEDS ORDERED: PHYTONADIONE 5 MG in SODIUM CHLORIDE 0.9% 50 ML IV ONE (11:45)
[2021-01-25] MEDS ORDERED: diphenhydrAMINE 50 MG/ML VIAL IV PRN (12:10)
[2021-01-25] MEDS ORDERED: diphenhydrAMINE 50 MG/ML VIAL IV STA (12:23)
--- NOTE | 2021-01-25 12:23 | Hospitalist Progress Note ---
Date of Service January 25, 2021 Assessment & Plan (1) Hematoma of left lower leg: Secondary to fall on rug at home. CT LEFT Femur on admission with hematoma measures approximately 30 x 11 x 7.5 cm MRI with enlargement of hematoma on 01/14 to 31.7 x 12.5 x 7.[address] of January 08, 2021. Orthopedics consulted, Dr. Blackmon POD #9 S/P I&D LEFT THIGH HEMATOMA 01/[address] Blackmon. EBL 25cc. * Per operative report, 1000cc large loculated hematoma evacuated and wound vac placed POD#7 s/p wound vac exchange on 01/[address] Dill. Tolerated well and size decreased with granulation tissue throughout without clot. * Lincoln placed and will get more accurate I&O however weights still inaccurate * --> Continuing lasix 40mg IV daily (WEIGHT NOW FINALLY 72kg/157lb down from 74.6kg on admission) and will continue for tomorrow and continue to monitor (dry weight closer to 148lb per CHF clinic) POD #4 wound vac exchange in OR POD #2 repeat wound vac exchange in OR on 01/23, tolerated well, hb is 9 on 01/23 wound vac exchange this morning, 01/25, having bleeding after the procedure will give FFP, one unit PRBC, check H/H this afternoon might need to go back to OR if bleeding persists, will continue with SATNAM wrap for extra pressure Anemia secondary to hematoma * Iron studies with : * -->iron 27L, TIBC 312/ferritin 113 wnl, trans % sat low 10, transferrin low 193. * --> Venofer IV given 01/15 and 01/17 and 01/19 Will need repeat therapy evals to see about SNF now that he has had surgery (2) Anemia: * See above, secondary to #1 * Would place on PO iron once constipation resolved given iron low at 27, trans sat % 10L, transferrin 193L, TIBC wnl at 312 and ferritin 113 * Venofer x 1 on 01/15, 01/17, 01/19 * 2 units PRBC prior to surgery and 1 unit PRBC given with surgery on 01/16 * Hb 9.2 this morning, 9.0 later this morning on stat lab due to bleeding, will give one unit PRBC since he is hypotensive and bleeding at this time, check h/h this afternoon (3) Acute on chronic diastolic (congestive) heart failure: * due to RIGHT SIDED HEART FAILURE/CIRRHOSIS * -- secondary to medication non-compliance/cognitive decline. * Was on Lasix 40mg QOD during admission but was on daily dose with 100mg spironolactone * BNP 3798 on 01/14 * ECHO with evidence for volume overload with elevated RVSP * monitor to see if he needs Lasix after transfusions * weight stable (4) Hepatic cirrhosis: * Unclear whether the patient is taking spironolactone or furosemide at the current time. * no further work up, he is DNR * has coagulopathy due to cirrhosis, INR is 1.3 (5) Chronic venous insufficiency: * Stasis changes to b/l LE however with edema/fall and hx afib will get Doppler to r/o DVT * Dopplers NEGATIVE for DVT * Vascular also consulted given plans for outpatient Venaseal to see about getting this done sooner/while inpatient? * --> Plans for outpatient intervention * Was to complete course of doxycycline --> did have dose left. Erythema/cellulitis to LE and put back on Doxy with improvement and would continue course at d/c * CRP, ESR improving and would continue at least 5-7 day course despite cx negative as he was on doxy for total 14 days but did not complete course [employer] * --> SWITCHED TO PO BID to avoid extra fluids on 01/17 (6) Atrial fibrillation: * Not new. * Not on anticoagulation - unclear reason for this although contraindicated with current hematoma --> had issues in past with intraocular bleeding as well as hematuria last admission while on Lovenox * Venous Dopplers 01/14 NEGATIVE for DVT * Rate controlled on no medication (7) HTN (hypertension), benign: * Chronic. BP controlled 110/51 and continues to tolerate diuresis * On lasix/spironolactone as above * Previously on carvedilol, SATNAM in past -- unclear why this was discontinued (8) Obstructive sleep apnea syndrome: * Patient reports not on CPAP at home. * With R sided HF would benefit but patient continues to decline (9) Osteomyelitis of left ankle: * Chronic * No surgical intervention planned. * No antibiotics per [facility] infectious disease - just completed course of Doxycycline for 14 days per wound care (did not complete full course) for MSSA of wound in office * Repeat cx with pin-point growth, re-incubating --> corynebacterium * CRP elevated 6.7, ESR 70 (but could be from age?) --> IMPROVING ON REPEAT * no WBC/afebrile * Placed back on doxy on 01/14, switched to PO 01/17 and would complete 7-10 day course. Continued for erythema which is improved but now some erythema around wound vac as well * Continued wound care while inpatient Palliative consultation undertaken given LACE score >=11 for goals of care Patient changed to DNR/DNI Dispo: continued inpatient stay, plan for additional wound vac changes per ortho Will need repeat therapy evals and look back into SNF/rehab at d/c Admission and Anticipated Discharge Date Admission Date: January 08, 2021 Subjective patient went to OR this morning for wound vac exchange, tolerated well, had some oozing from superior border of wound that was cauterized prior to vac being placed when he got back to the room he stood up to urinate, started to bleeding significantly from upper border of wound BP was a little low but no symptoms Dr. Blackmon came to see him at the bedside and I met him there will apply SATNAM wrap for more pressure, will give Vitamin K, FFP and I will give one unit of PRBC due to the bleeding and low BP his orthopedic fellow will assess him later today, determine if he needs to go back to OR to stop bleeding Review of Systems Review of Systems: All systems reviewed & are unremarkable except as noted in Subjective Constitutional: + fatigue and + weakness; no fever Respiratory: no cough, no dyspnea and no dyspnea on exertion Cardiovascular: no chest pain, no palpitations and no edema Gastrointestinal: no abdominal pain, no nausea, no vomiting, no constipation and no diarrhea/loose stools Integumentary: + wounds (large left thigh, wound vac in place, bleeding) Physical Exam Constitutional: well developed, + thin and + frail appearing; no acute distress Neck: trachea midline, no thyromegaly Respiratory: normal respiratory effort, lungs clear to auscultation Cardiovascular: Rate/Rhythm: regular rate and regular rhythm Heart Sounds: normal S1 and normal S2; no murmur Extremities: normal capillary refill and + edema (+1 pedal edema) Gastrointestinal (Abdomen): normal bowel sounds, soft, nontender, no hepatosplenomegaly Musculoskeletal: no cyanosis or clubbing, extremities motor strength 5/5 Skin: + turgor decreased, + wound (left thigh, from hematoma drainage, bleeding from superior edge of wound) and + dry skin Neurologic: patellar DTR's 2+ bilat, sensation intact and PERRL, EOMI, accommodation nl, no face palsy, no dysarthria Psychiatric: A+Ox3, euthymic affect Lymphatic: no cervical or axillary lymphadenopathy Results & Data Results & Data ([facility]) Vital Signs (Past 12 Hours) Vital Signs Temp Pulse Pulse Resp BP Pulse Ox 01/25/21 11:50 49 L 16 109/44 L 99 01/25/21 11:41 105/54 L 01/25/21 11:34 50 L 111/47 L 100 01/25/21 11:14 51 L 16 118/55 L 98 01/25/21 11:07 75/29 L 01/25/21 11:03 86/41 L 01/25/21 10:59 91/40 L 01/25/21 10:56 75/33 L 01/25/21 10:36 36.4 C L 53 L 16 112/51 L 98 01/25/21 10:10 58 L 16 111/57 L 99 01/25/21 08:50 37.2 C 60 22 103/50 L 100 01/25/21 08:40 59 L 15 108/47 L 100 01/25/21 08:30 36.9 C 63 16 107/51 L 94 01/25/21 07:14 36.6 C 51 L 20 105/56 L 94 01/25/21 07:09 36.6 C 61 18 120/62 92 PG Care Time/CCT Total # of Minutes Spent Total Time Spent: 33 Total Time Spent with Patient: Total time spent is greater than 50% in coordination of care (as documented) at patient's floor/unit and/or counseling patient: discussed with Dr. Blackmon, examined at bedside with Dr. Blackmon discussed several times with RN Coding Level of Care Code 05366 Subseq Hosp Care Lvl 3 Diagnoses Hematoma of left lower leg S80.12XA Anemia D64.9 Acute on chronic diastolic (congestive) heart failure I50.33 Hepatic cirrhosis K74.60 Chronic venous insufficiency I87.2 Atrial fibrillation I48.20 Atrial fibrillation type: unspecified chronic HTN (hypertension), benign I10 Obstructive sleep apnea syndrome G47.33 Osteomyelitis of left ankle M86.9 (1) Atrial fibrillation Atrial fibrillation type: unspecified chronic Qualified Code(s): I48.20 - Chronic atrial fibrillation, unspecified
[2021-01-25] MEDS ORDERED: DEXAMETHASONE SOD INJ 4 MG/ML VIAL ONE (14:29)
--- NOTE | 2021-01-25 14:35 | Orthopedic Progress Note ---
Date of Service January 25, 2021 Assessment & Plan Admission and Anticipated Discharge Date Admission Date: January 08, 2021 Subjective His vital signs have been stable. He has been getting intravenous fluids. He is awake alert and alert and oriented. I was called to see the patient because of bleeding. I instructed for the wound VAC to be paused and reinforce the dressing and applied pressure. This was abou t 10 AM this morning. The patient had spontaneous bleeding. At the time of his dressing change this morning he did have some hematoma proximally which was removed but there was no active bleeding closure. Electrocautery was performed and is seem to control receiving well. I came up to evaluate the patient and there was saturation of the wound VAC and the applied dressings. I reapplied a number of ABDs and wrapped over with several Nestor wraps. I spoke with . Also consulted with Dr. Cailin griffin. Give vitamin K 2 units of FFP and TXA. We got some quick clot to the bedside. Dr. Ritchie monitored the patient. His vital signs remained stable. His H&H was stable. However now at 2:30 in the afternoon the patient continues to saturate his dressings. He has gotten the TXA and part of 1 unit of FFP. I think it is in his best interest at this time that we return to the operating room to evaluate for any sources of bleeding. We can do cautery. Quick clot. Continue FFP. Topical TXA. The dressing will need to be changed anyhow because of the saturation. I would plan on not putting a wound VAC on but simply packing the wound off for the time being. I think that this is a surgical urgency to address the bleeding at this time. I discussed the findings with the patient and he agreed to proceed. We talked about the risks and benefits. Particularly as he has not been n.p.o. for 8 hours which would take us out to 6 PM tonight which I think is for more additional hours where he could be bleeding. I think it is best to address this now during the daylight hours when appropriate staff is present as well. Discussed with Dr. Jaramillo. Will contact patient's family. Results & Data ([facility]) Vital Signs (Past 12 Hours) Vital Signs Temp Pulse Pulse Pulse Resp BP BP 01/25/21 14:11 47 L 16 104/37 L 01/25/21 13:16 36.3 C L 51 L 18 103/40 L 01/25/21 13:14 36.5 C 51 L 20 104/45 L 01/25/21 13:02 36.4 C L 48 L 18 110/64 01/25/21 12:56 53 L 16 110/64 01/25/21 12:28 36.6 C 48 L 16 103/40 L 01/25/21 11:50 49 L 16 109/44 L 01/25/21 11:41 105/54 L 01/25/21 11:34 50 L 111/47 L 01/25/21 11:14 51 L 16 118/55 L 01/25/21 11:07 75/29 L 01/25/21 11:03 86/41 L 01/25/21 10:59 91/40 L 01/25/21 10:56 75/33 L 01/25/21 10:36 36.4 C L 53 L 16 112/51 L 01/25/21 10:10 58 L 16 111/57 L 01/25/21 08:50 37.2 C 60 22 103/50 L 01/25/21 08:40 59 L 15 108/47 L 01/25/21 08:30 36.9 C 63 16 107/51 L 01/25/21 07:14 36.6 C 51 L 20 105/56 L 01/25/21 07:09 36.6 C 61 18 120/62 Pulse Ox 01/25/21 14:11 100 01/25/21 13:16 98 01/25/21 13:14 98 01/25/21 13:02 98 01/25/21 12:56 99 01/25/21 12:28 98 01/25/21 11:50 99 01/25/21 11:41 01/25/21 11:34 100 01/25/21 11:14 98 01/25/21 11:07 01/25/21 11:03 01/25/21 10:59 01/25/21 10:56 01/25/21 10:36 98 01/25/21 10:10 99 01/25/21 08:50 100 01/25/21 08:40 100 01/25/21 08:30 94 01/25/21 07:14 94 01/25/21 07:09 92 Laboratory Results 01/25/21 01/25/2101/25/21 Range/Units 11:34 11:34 09:30 WBC 4.60 L (4.8-10.8) K/uL RBC 3.04 L (4.7-6.1) M/uL Hgb 9.0 L 9.2 L (14.0-18.0) g/dL Hct 28.0 L 29.1 L (42-52) % MCV 95.7 (80-100) fL MCH 30.3 (25-34) pg MCHC 31.6 L (32-36) g/dL RDW Std Deviation 63.6 H (36.4-46.3) fL RDW Coeff of Chel 18.1 H (11.5-14.5) % Plt Count 197 (130-400) K/uL MPV 8.5 (7.4-10.4) fL Immature Gran % (Auto) 0.4 % Neut % (Auto) 58.3 % Lymph % (Auto) 20.4 % [place] % (Auto) 14.6 % Eos % (Auto) 5.4 % Baso % (Auto) 0.9 % Neut # (Auto) 2.68 (1.4-6.5) K/uL Lymph # (Auto) 0.94 L (1.2-3.4) K/uL [place] # (Auto) 0.67 H (0.11-0.59) K/uL Eos # (Auto) 0.25 (0-0.5) K/uL Baso # (Auto) 0.04 (0-0.2) K/uL Immature Gran # (Auto) 0.02 (0.00-0.02) K/uL Blood Type O Positive Antibody Screen NEGATIVE Crossmatch See Detail
[2021-01-25] MEDS ORDERED: LIDOCAINE HCL 1% 20 ML VIAL ONE (14:44)
[2021-01-25] MEDS ORDERED: BUPIVACAINE 0.5 % 5 MG/1 ML MPF 30ML VIAL ONE (14:44)
--- NOTE | 2021-01-25 14:58 | Anesthesiology Consultation ---
Date of Service January 25, 2021 Assessment & Plan (1) Encounter for pre-operative examination: Chart Review Chart Review: Acceptable Risk for Surgery and Patient NOT seen in Pre Admission Testing Consults Requested none ASA [id number] Proposed Anesthesia Anesthesia Type: General Risk / Benefits Reviewed With: PT / POA / Parent / Guardian, Accepts Plan and Informed Consent Obtained History Surgery Operation Date: 01/16/21 09:50 Proposed Procedures p Left Thigh Incision and Drainage of Hematoma with Wound Vac Placement - Pérez Blackmon MD Operation Date: 01/18/21 13:20 Proposed Procedures p Left Incision and Drainage Thigh with wound Vac Change - Baltazar Dill MD Operation Date: 01/21/21 11:30 Proposed Procedures p Incision and Drainage Left Thigh with Wound Vac Change - Baltazar Dill MD Operation Date: 01/23/21 07:15 Proposed Procedures p Incision and Drainage thigh Left with Wound Vac Change - Pérez Blackmon MD Operation Date: 01/25/21 08:00 Proposed Procedures p Incision and Drainage Thigh Left With Wound Vac Change - Pérez Blackmon MD Operation Date: 01/25/21 08:20 Proposed Procedures p Incision and Drainage Extremity - Pérez Blackmon MD Operation Date: 01/28/21 07:15 Proposed Procedures p Incision and Drainage Thigh Left With Wound Vac Change - Pérez Blackmon MD Operation Date: 01/30/21 07:00 Proposed Procedures p Left Thigh Incision and Drainage with Wound Vac Change - Pérez Blackmon MD Height/Weight Height: 5 ft 10 in Weight: 67.3 kg Allergies Allergy/AdvReac Type Severity Reaction Status Date / Time merbromin Allergy Intermediate ALLERGIC Verified 01/08/21 09:06 TO MERCUROCHROME, RASH mercury (elemental) AdvReac Intermediate Rash Verified 01/08/21 09:06 sulfamethoxazole AdvReac Intermediate GI UPSET, Verified 01/08/21 09:06 FEVER, HEADACHE trimethoprim AdvReac Intermediate GI UPSET, Verified 01/08/21 09:06 FEVER, HEADACHE ciprofloxacin AdvReac Mild GI SYMPTOMS Verified 01/08/21 09:06 Medications Home Medications Medication Instructions Recorded Confirmed Last Taken No Known Home Medications 01/08/21 01/08/21 Unknown Active Medications Generic Name Dose Route Start Last Admin Trade Name Freq PRN Reason Stop Dose Admin Acetaminophen 650 mg 01/08/21 13:27 01/16/21 19:54 Acetaminophen 325 Mg Tab PO 02/07/21 13:26 650 mg Q4H PRN Administration pain/fever Furosemide 40 mg 01/23/21 09:00 01/25/21 10:02 Furosemide 40 Mg Tab PO 02/22/21 08:59 40 mg QAM TONY Administration Lactulose 40 gm 01/21/21 09:00 01/25/21 10:02 Lactulose Syrup 20 Gm/30 Ml Udc PO 02/20/21 08:59 40 gm QAM TONY Administration Melatonin 3 mg 01/13/21 23:24 01/21/21 20:27 Melatonin 3 Mg Tab PO 02/12/21 23:23 3 mg HS PRN Administration Sleep Polyethylene Glycol 17 gm 01/12/21 01:03 01/20/21 20:01 Polyethylene (Miralax) 17 Gm Pack PO 02/11/21 01:02 17 gm BID PRN Administration Constipation Spironolactone 100 mg 01/15/21 09:00 01/25/21 10:02 Spironolactone 100 Mg Tab PO 02/14/21 08:59 100 mg QAM TONY Administration Tramadol HCl 50 - 100 mg 01/16/21 13:18 01/18/21 01:08 Tramadol Hcl 50 Mg Tablet PO 02/15/21 13:17 50 mg Q4H PRN Administration Pain & Pre PT NPO Date Last Intake of Fluids: 01/25/21 Time Last Intake of Fluids: 10:00 Date Last Intake of Solids: 01/25/21 Time Last Intake of Solids: 10:00 Past Medical History Medical History Actinic keratosis Anemia Aortic aneurysm Aortic stenosis, mild Arrhythmia HX Atrial fibrillation Bifascicular bundle branch block BPH (benign prostatic hyperplasia) Bronchitis 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 Chronic cough Chronic obstructive pulmonary disease Duodenal ulcer HX Dyspnea Enlarged prostate with lower urinary tract symptoms (LUTS) History of duodenal ulcer History of edema History of gross hematuria History of hepatitis History of retinal hemorrhage Hypertension Hypoxia Laceration of scalp with delay in treatment Left knee DJD Left shoulder pain Liver cirrhosis Macular degeneration Pneumonia ON ANTIBIOTICS CURRENTLY X 5 DAYS THRU PCP Positive JESSICA (antinuclear antibody) Pulmonary hypertension Retinal hemorrhage Right-sided heart failure Sleep apnea Traumatic hematoma of left upper arm Traumatic open wound of right lower leg with delayed healing Upper respiratory infection 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 Mother , Age 34 No problems noted. Denies family history of Colon cancer Ovarian cancer Prostate cancer Myocardial infarction Breast cancer Past Surgical History Surgical History History of cardiac radiofrequency ablation S/P History of colonoscopy History of esophagogastroduodenoscopy (EGD) History of gastrostomy History of total knee replacement R/L Hx of transurethral resection of prostate Past Anesthesia History No Hx of Anesthesia Complications and No Family Hx of Anesthesia Complications History of PONV No Hx of PONV and No Hx of Motion Sickness Social History Smoking Status: Former smoker tobacco type: pipe Hx Alcohol Use: Yes Alcohol type: wine alcohol intake frequency: a few times a week Alcohol Intake Frequency Comment: sometimes with dinner Hx Substance Use: No substance use type: does not use Physical Exam Vital Signs Last Vital Signs Temp 36.9 C 01/25/21 14:54 Pulse 54 L 01/25/21 14:54 Resp 17 01/25/21 14:54 BP 97/44 L 01/25/21 14:54 Pulse Ox 96 01/25/21 14:54 ENMT Mouth: no dentition abnormality Thyromental Distance: > or= 3.5 Finger Breadths Mallampati Class: II Neck normal visual inspection Respiratory normal respiratory effort Auscultation: lungs clear to auscultation bilaterally Cardiovascular Rate/Rhythm: regular rate and regular rhythm Psychiatric Orientation: alert Lab Results Anesthesia Preop Results Results Anesthesia Widget: WBC 4.60 K/uL (4.8-10.8) L 01/25/21 Hgb 9.0 g/dL (14.0-18.0) L 01/25/21 Hct 28.0 % (42-52) L 01/25/21 Plt 197 K/uL (130-400) 01/25/21 Na 136 mmol/L (136-145) 01/23/21 K 4.5 mmol/L (3.5-5.1) 01/23/21 Cl 101 mmol/L (98-107) 01/23/21 CO2 33 mmol/L (21-32) H 01/23/21 BUN 29 mg/dl (7-18) H 01/23/21 Creat 0.91 mg/dl (0.6-1.4) 01/23/21 Glucose Level 90 mg/dl (70-99) 01/23/21 PT 12.8 Seconds (9.0-12.0) H 01/23/21 PTT 48.7 Seconds (21.0-31.0) H* 01/08/21 INR 1.3 (0.9-1.1) H 01/23/21 TSH 4.990 uIu/ml (0.300-4.500) H 01/08/21 Free T4 0.95 ng/dl (0.8-1.6) 01/08/21 Urine Color Dark Yellow 01/08/21 Urine Appearance Clear (Clear) 01/08/21 Urine pH 6.0 (4.5-7.5) 01/08/21 Urine Specific [place] 1.020 (1.000-1.030) 01/08/21 Urine Protein Trace (Negative) H 01/08/21 Urine Glucose (UA) Negative (Negative) 01/08/21 Urine Ketones Negative (Negative) 01/08/21 Urine Blood Negative (Negative) 01/08/21 Urine Nitrite Negative (Negative) 01/08/21 Urine Bilirubin Negative (Negative) 01/08/21 Urine Urobilinogen Negative (Negative) 01/08/21 Urine Leukocyte Esterase 1+ (Negative) H 01/08/21 Urine WBC (Auto) 5-10 /hpf (0-5) H 01/08/21 Urine RBC (Auto) 0-4 /hpf (0-4) 01/08/21 Urine Hyaline Casts (Auto) 1-5 /lpf (0-5) 01/08/21 Urine Epithelial Cells (Auto) 10-20 /lpf (0-5) H 01/08/21 Urine Bacteria (Auto) Negative (Negative) 01/08/21 COVID-19 PCR NEGATIVE (Negative) 01/08/21 Blood Type O Positive 01/25/21 Antibody Screen NEGATIVE 01/25/21 Testing Laboratory Results 01/25/21 11:34 01/23/21 06:17 PT 12.8 Seconds (9.0-12.0) H 01/23/21 06:17 INR 1.3 (0.9-1.1) H 01/23/21 06:17 APTT 48.7 Seconds (21.0-31.0) H* 01/08/21 08:42 Urine Color Dark Yellow 01/08/21 08:51 Urine Appearance Clear (Clear) 01/08/21 08:51 Urine pH 6.0 (4.5-7.5) 01/08/21 08:51 Ur Specific [place] 1.020 (1.000-1.030) 01/08/21 08:51 Urine Protein Trace (Negative) H 01/08/21 08:51 Urine Glucose (UA) Negative (Negative) 01/08/21 08:51 Urine Ketones Negative (Negative) 01/08/21 08:51 Urine Nitrite Negative (Negative) 01/08/21 08:51 Ur Leukocyte Esterase 1+ (Negative) H 01/08/21 08:51 Urine WBC (Auto) 5-10 /hpf (0-5) H 01/08/21 08:51 Urine RBC (Auto) 0-4 /hpf (0-4) 01/08/21 08:51 U Hyaline Cast (Auto) 1-5 /lpf (0-5) 01/08/21 08:51 U Epithel Cells (Auto) 10-20 /lpf (0-5) H 01/08/21 08:51 Urine Bacteria (Auto) Negative (Negative) 01/08/21 08:51 Blood Type O Positive 01/25/21 11:34 Antibody Screen NEGATIVE 01/25/21 11:34 01/14/21 15:51 Gram Stain - Final Ankle Wound Culture - Final Corynebacterium species 01/08/21 08:42 Aerobic Blood Culture - Final Blood No growth in Aerobic bottle after 5 days. Anaerobic Blood Culture - Final No growth in Anaerobic bottle after 5 days. 01/08/21 08:31 Aerobic Blood Culture - Final Blood No growth in Aerobic bottle after 5 days. Anaerobic Blood Culture - Final No growth in Anaerobic bottle after 5 days.
[2021-01-25] MEDS ORDERED: ceFAZolin 1000MG 1,000 MG/7.5 ML SYR IV ONE (15:37)
--- NOTE | 2021-01-25 16:10 | Operative Report ---
Post Operative Report Pre & Post Diagnosis Operation Date: 01/16/21 09:50 Pre-Op Diagnosis: Left leg hematoma Post-Op Diagnosis: Left leg hematoma Operation Date: 01/18/21 13:20 Pre-Op Diagnosis: Left leg hematoma Post-Op Diagnosis: Left leg hematoma Operation Date: 01/21/21 11:30 Pre-Op Diagnosis: LEFT LEG HEMATOMA Post-Op Diagnosis: LEFT LEG HEMATOMA Operation Date: 01/23/21 07:15 Pre-Op Diagnosis: Left thigh hematoma Post-Op Diagnosis: Left thigh hematoma Operation Date: 01/25/21 08:00 Pre-Op Diagnosis: Left Leg Hematoma Post-Op Diagnosis: Left Leg Hematoma Operation Date: 01/25/21 08:20 Pre-Op Diagnosis: Post-operative bleed, left thigh Post-Op Diagnosis: Post-operative bleed, left thigh Operation Date: 01/28/21 07:15 <No data on this case meets the specified criteria> Operation Date: 01/30/21 07:00 <No data on this case meets the specified criteria> I identified the patient and participated in the time-out.: Yes Procedure Operation Date: 01/16/21 09:50 Actual Procedures p Left Thigh Incision and Drainage of Hematoma with Wound Vac Placement(Left) - Pérez Blackmon MD Operation Date: 01/18/21 13:20 Actual Procedures p Left Incision and Drainage Thigh with wound Vac Change(Left) - Baltazar Dill MD Operation Date: 01/21/21 11:30 Actual Procedures p Incision and Drainage Left Thigh with Wound Vac Change(Left) - Baltazar Dill MD Operation Date: 01/23/21 07:15 Actual Procedures p Incision and Drainage Left Thigh with Wound Vac Change(Left) - Pérez Blackmon MD Operation Date: 01/25/21 08:00 Actual Procedures p Incision and Drainage Thigh Left With Wound Vac Change(Left) - Pérez Blackmon MD Operation Date: 01/25/21 08:20 Actual Procedures p Incision and Drainage Extremity(Left) - Pérez Blackmon MD Operation Date: 01/28/21 07:15 <No data on this case meets the specified criteria> Operation Date: 01/30/21 07:00 <No data on this case meets the specified criteria> January 25, 2021 at 4 PM the surgical procedure was removal of wound VAC. Cauterization of bleeding. Irrigation. Packing of wound. Surgeon Pérez Blackmon MD Animated Cartoons Painter Devi Hernandez PA-C, Monique Emerson Estimated Blood Loss 20 Findings Consistent with Post-Op Diagnosis Specimens None Drains None Anesthesia Type General Complications none Disposition Accompanied Patient To Recovery: No Disposition: Recovery Room Indications Mr. Isabel dennison had a wound VAC change this morning. He has liver disease and coagulopathy. He developed bleeding postoperatively that was not present at the time of the wound VAC change. This was attempted to be controlled with pressure and administration of vitamin K FFP and TXA with out results. At approximately 3 PM it was decided to taken to the operating room to explore for any surgical bleeding that may be treated. I felt this was a surgical urgency and should not wait for his full 8 hours of n.p.o. Description of Procedure Informed consent obtained. Patient identified. He identified the operative site as the left thigh. I marked with my initials. Surgical timeout performed and preop antibiotics given. The leg was prescrubbed and prepped and draped with Betadine in usual sterile fashion. Prior to this the wound VAC dressing was removed. There was clotted blood underneath the dressing. There was however some active bleeding from the midportion of the wound. I left the sponge in place and did the prepping. DVT prophylaxis not indicated. Carefully removed the sponges starting distally. There is no bleeding noted. Proximally was noted at the apex of the wound there was at least 2 pumpers. I incised the skin for another centimeter as this area was undermined somewhat and incising the skin which did not contribute to any bleeding allow better visualization. There is no bleeding from deep in the wound. Electrocautery was utilized over the 2 pumping areas which were possibly small arterioles. This is the area that had been opened a couple days ago to extend the incision. Some bleeding was encountered here this morning but was completely controlled. I also cauterize some of the fat in this area. The wound was then packed with quick clot gauze sponge and ABDs. Particularly at the apex. We waited 10 minutes irrigated and carefully remove them. There is absolutely no bleeding in any area of the wound. We again waited several more minutes and there was no bleeding. The wound was then irrigated and carefully suction drained. Then inserted a single Kerlix moistened with saline to pack the wound and then a quick clot sponge was applied on top of the Kerlix at the apex of the wound in contact with the tissue that had been bleeding and then 4 x 4's multiple ABDs full-length Nestor wrap and another Nestor wrap were placed on top. There was about 200 cc of blood on the dressings. Actual blood loss during surgery was only 15 to 20 cc. There were no specimens complications. Counts we re correct and blood loss was as noted. [place] patient taken to recovery room in stable condition. Will discuss findings with and medical team. Plan on bedrest and postop but TXA. He will continue to get FFP check H&H and transfuse as necessary. I attest to the content of the Intraoperative Record and any orders documented therein. Any exceptions are noted below.
--- NOTE | 2021-01-25 16:21 | XRay Report ---
XR chest 1V portable CLINICAL HISTORY: COPD, postop atelectasis vs fluid overload COMPARISON STUDY: 01/08/2021 FINDINGS: The heart is enlarged. There is a suspected subpulmonic right pleural effusion with associa wogn right lower lobe atelectasis/consolidation. There is no overt failure.[ IMPRESSION: Subpulmonic right pleural effusion with associated right basilar atelectasis/consolidatio n. ACT 112: Negative or not required by law. Electronically signed by: Shahriar Dumont M.D. 01/25/2021 4:20 PM
[2021-01-25 16:32] LABS: Hemoglobin 8.6 g/dL (14.0-18.0); Mean Corpuscular Hemoglobin 30.2 pg (25-34); Mean Corpuscular Volume 94.7 fL (80-100); Mean Platelet Volume 8.7 fL (7.4-10.4); Platelet Count 210 K/uL (130-400); RDW Coefficient of Variation 17.8 % (11.5-14.5); RDW Standard Deviation 62.3 fL (36.4-46.3); Red Blood Count 2.85 M/uL (4.7-6.1); White Blood Count 3.47 K/uL (4.8-10.8)
[2021-01-25 16:35] LABS: Mean Corpuscular Hgb Conc 31.9 g/dL (32-36)
[2021-01-25 16:48] LABS: INR 1.3 (0.9-1.1); Prothrombin Time 12.5 Seconds (9.0-12.0)
[2021-01-25] MEDS ORDERED: FUROSEMIDE 40 MG in SYRINGE 0 ML IV SCH (16:52)
--- NOTE | 2021-01-25 17:05 | Anesthesiology Progress Note ---
Date of Service January 25, 2021 Anesthesia Post Procedure Vital Signs Vital Signs: Temp Pulse Pulse Pulse Resp BP BP 01/25/21 16:50 36.1 C L 76 16 118/56 L 01/25/21 16:40 36.1 C L 80 16 109/54 L 01/25/21 16:30 91 H 16 106/60 01/25/21 16:20 85 16 112/45 L 01/25/21 16:10 36.0 C L 84 16 107/53 L 01/25/21 14:56 36.9 C 57 L 21 99/44 L 01/25/21 14:54 36.9 C 54 L 17 97/44 L 01/25/21 14:45 36.9 C 54 L 17 97/44 L 01/25/21 14:36 36.9 C 62 16 100/44 L 01/25/21 14:11 47 L 16 104/37 L 01/25/21 13:30 36.9 C 61 16 100/44 L 01/25/21 13:16 36.3 C L 51 L 18 103/40 L 01/25/21 13:14 36.5 C 51 L 20 104/45 L 01/25/21 13:02 36.4 C L 48 L 18 110/64 01/25/21 12:56 53 L 16 110/64 01/25/21 12:28 36.6 C 48 L 16 103/40 L 01/25/21 11:50 49 L 16 109/44 L 01/25/21 11:41 105/54 L 01/25/21 11:34 50 L 111/47 L 01/25/21 11:14 51 L 16 118/55 L 01/25/21 11:07 75/29 L 01/25/21 11:03 86/41 L 01/25/21 10:59 91/40 L 01/25/21 10:56 75/33 L 01/25/21 10:36 36.4 C L 53 L 16 112/51 L 01/25/21 10:10 58 L 16 111/57 L 01/25/21 08:50 37.2 C 60 22 103/50 L 01/25/21 08:40 59 L 15 108/47 L 01/25/21 08:30 36.9 C 63 16 107/51 L 01/25/21 07:14 36.6 C 51 L 20 105/56 L 01/25/21 07:09 36.6 C 61 18 120/62 01/24/21 23:49 36.7 C 54 L 18 104/49 L Pulse Ox 01/25/21 16:50 96 01/25/21 16:40 94 01/25/21 16:30 94 01/25/21 16:20 97 01/25/21 16:10 97 01/25/21 14:56 96 01/25/21 14:54 96 01/25/21 14:45 96 01/25/21 14:36 97 01/25/21 14:11 100 01/25/21 13:30 100 01/25/21 13:16 98 01/25/21 13:14 98 01/25/21 13:02 98 01/25/21 12:56 99 01/25/21 12:28 98 01/25/21 11:50 99 01/25/21 11:41 01/25/21 11:34 100 01/25/21 11:14 98 01/25/21 11:07 01/25/21 11:03 01/25/21 10:59 01/25/21 10:56 01/25/21 10:36 98 01/25/21 10:10 99 01/25/21 08:50 100 01/25/21 08:40 100 01/25/21 08:30 94 01/25/21 07:14 94 01/25/21 07:09 92 01/24/21 23:49 92 Pain Intensity Left Thigh: Pain Intensity: 3 Left Leg: Pain Intensity: 0 Transfer of Care Handoff Completed per policy Notes Mental Status: alert / awake / arousable Patient Amnestic to Procedure: Yes Nausea / Vomiting: adequately controlled Pain: adequately controlled Airway Patency, RR, SpO2: stable & adequate BP & HR: stable & adequate Hydration State: stable & adequate Anesthetic Complications: no major complications apparent and Pt Satisfied with anesthetic care Notes: pt with pre/intraop bleeding. CBC/PT/INR checked postop. HCT27>tfx 1 unit prbc in pacu. INR=1.3 to tfx a 3rd unit of FFP. Orders in. Pt doing well in pacu. CXR w/o vol overload, chronic R hemidiaphragm. VSS>floor. Spoke with hospitalist. Agree with IV lasix x1 after prbc unit.
[2021-01-25] MEDS: FUROSEMIDE 20 MG in SYRINGE 0 ML IV ONE ×2 (18:22→18:29)
[2021-01-25] MEDS ORDERED: TRANEXAMIC ACID / 0.7% NACL 1,000 MG/100 ML BAG IV ONE (22:30)
[2021-01-25] MEDS: ACETAMINOPHEN 325 MG TAB PO PRN (23:42)
[2021-01-26] MEDS ORDERED: ceFAZolin 2000MG 2,000 MG/15 ML SYR IV ONE
[2021-01-26] MEDS: LACTULOSE SYRUP 20 GM/30 ML UDC PO SCH (08:31)
[2021-01-26] MEDS: SPIRONOLACTONE 100 MG TAB PO SCH (08:31)
[2021-01-26] MEDS: FUROSEMIDE 40 MG TAB PO SCH (08:31)
[2021-01-26 09:15] LABS: Hematocrit (blood only) 28.1 % (42-52); Hemoglobin 9.4 g/dL (14.0-18.0); Mean Corpuscular Hemoglobin 31.3 pg (25-34); Mean Corpuscular Hgb Conc 33.5 g/dL (32-36); Mean Corpuscular Volume 93.7 fL (80-100); Mean Platelet Volume 8.5 fL (7.4-10.4); Platelet Count 183 K/uL (130-400); RDW Coefficient of Variation 17.2 % (11.5-14.5); RDW Standard Deviation 57.5 fL (36.4-46.3)
[2021-01-26 09:36] LABS: BUN Creatinine Ratio 25.1 (10-20); Calcium 8.5 mg/dl (8.5-10.1); Creatinine Clr Calc Pharmacy 46.4 ml/min; Est GFR (African American) 68.1; Est GFR (Non-African American) 58.7; Potassium 4.2 mmol/L (3.5-5.1)
--- NOTE | 2021-01-26 22:23 | Hospitalist Progress Note ---
Date of Service January 26, 2021 Assessment & Plan (1) Hematoma of left lower leg: Secondary to fall on rug at home. CT LEFT Femur on admission with hematoma measures approximately 30 x 11 x 7.5 cm MRI with enlargement of hematoma on 01/14 to 31.7 x 12.5 x 7.[address] of January 08, 2021. Orthopedics consulted, Dr. Blackmon POD #10 S/P I&D LEFT THIGH HEMATOMA 01/[address] Blackmon. EBL 25cc. * Per operative report, 1000cc large loculated hematoma evacuated and wound vac placed POD#8 s/p wound vac exchange on 01/[address] Dill. Tolerated well and size decreased with granulation tissue throughout without clot. * Lincoln placed and will get more accurate I&O however weights still inaccurate * --> Continuing lasix 40mg IV daily (WEIGHT NOW FINALLY 72kg/157lb down from 74.6kg on admission) and will continue for tomorrow and continue to monitor (dry weight closer to 148lb per CHF clinic) POD #5 wound vac exchange in OR POD #3 repeat wound vac exchange in OR on 01/23, tolerated well, hb is 9 on 01/23 POD #1 wound vac exchange the morning of 01/25, had significant bleeding after the procedure from superior wound edge gave 2 units FFP, one unit PRBC went back to the OR, bleeding stopped by Dr. Blackmon, wound packed, SATNAM wrap Hb stable today, BP stable, no obvious bleeding from wound difficult situation as his INR will go up to 1.3, due to cirrhosis Will need repeat therapy evals to see about SNF now that he has had surgery will be in the hospital until orthopedics feels he is done with trips to the OR (2) Anemia: * See above, secondary to #1 * Would place on PO iron once constipation resolved given iron low at 27, trans sat % 10L, transferrin 193L, TIBC wnl at 312 and ferritin 113 * Venofer x 1 on 01/15, 01/17, 01/19 * 2 units PRBC prior to surgery and 1 unit PRBC given with surgery on 01/16 * one unit PRBC given on 01/25 due to ongoing bleeding, BP was stable, Hb is > 9 today (3) Acute on chronic diastolic (congestive) heart failure: * due to RIGHT SIDED HEART FAILURE/CIRRHOSIS * -- secondary to medication non-compliance/cognitive decline. * Was on Lasix 40mg QOD during admission but was on daily dose with 100mg spironolactone * BNP 3798 on 01/14 * ECHO with evidence for volume overload with elevated RVSP * gave Lasix 20mg IV after FFP and PRBC transfusions, lungs are clear * resume Lasix 40mg PO daily on 01/27 (4) Hepatic cirrhosis: * Unclear whether the patient is taking spironolactone or furosemide at the current time. * no further work up, he is DNR * has coagulopathy due to cirrhosis, INR was 1.3 (5) Chronic venous insufficiency: * Stasis changes to b/l LE however with edema/fall and hx afib will get Doppler to r/o DVT * Dopplers NEGATIVE for DVT * Vascular also consulted given plans for outpatient Venaseal to see about getting this done sooner/while inpatient? * --> Plans for outpatient intervention * Was to complete course of doxycycline --> did have dose left. 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 * Not on anticoagulation - unclear reason for this although contraindicated with current hematoma --> had issues in past with intraocular bleeding as well as hematuria last admission while on Lovenox * Venous Dopplers 01/14 NEGATIVE for DVT * Rate controlled on no medication (7) HTN (hypertension), benign: * Chronic. BP controlled 110/51 and continues to tolerate diuresis * On lasix/spironolactone as above * Previously on carvedilol, SATNAM in past -- unclear why this was discontinued (8) Obstructive sleep apnea syndrome: * Patient reports not on CPAP at home. * With R sided HF would benefit but patient continues to decline (9) Osteomyelitis of left ankle: * Chronic * No surgical intervention planned. * [facility] - just completed course of Doxycycline for 14 days per wound care (did not complete full course) for MSSA of wound in office * Repeat cx with pin-point growth, re-incubating --> corynebacterium * CRP elevated 6.7, ESR 70 (but could be from age?) --> IMPROVING ON REPEAT * no WBC/afebrile * Placed back on doxy on 01/14, switched to PO 01/17 and would complete 7-10 day course. Continued for erythema which is improved but now some erythema around wound vac as well * Continued wound care while inpatient Palliative consultation undertaken given LACE score >=11 for goals of care Patient changed to DNR/DNI Dispo: continued inpatient stay, plan for additional wound vac changes per ortho Will need repeat therapy evals and look back into SNF/rehab at d/c Admission and Anticipated Discharge Date Admission Date: January 08, 2021 Subjective patient very happy today, no acute issues, no further bleeding Hb is stable at 9.9 eating well, breathing comfortably, no chest pain/pressure plan to observe this weekend, ortho will re-evaluate the wound Thursday Review of Systems Review of Systems: All systems reviewed & are unremarkable except as noted in Subjective Physical Exam Constitutional: well developed, + thin and + frail appearing; no acute distress Neck: trachea midline, no thyromegaly Respiratory: normal respiratory effort, lungs clear to auscultation Cardiovascular: Rate/Rhythm: regular rate and regular rhythm Heart Sounds: normal S1 and normal S2; no murmur Extremities: normal capillary refill and + edema (+1 pedal edema) Gastrointestinal (Abdomen): normal bowel sounds, soft, nontender, no hepatosplenomegaly Musculoskeletal: no cyanosis or clubbing, extremities motor strength 5/5 Skin: + turgor decreased, + wound (left thigh, from hematoma drainage, no bleeding, SATNAM wrap) and + dry skin Neurologic: patellar DTR's 2+ bilat, sensation intact and PERRL, EOMI, accommodation nl, no face palsy, no dysarthria Psychiatric: A+Ox3, euthymic affect Lymphatic: no cervical or axillary lymphadenopathy Results & Data Results & Data ([facility]) Vital Signs (Past 12 Hours) Vital Signs Temp Pulse Resp BP Pulse Ox 01/26/21 22:20 36.8 C 63 16 118/55 L 97 01/26/21 14:24 36.3 C L 57 L 17 111/43 L 99 01/26/21 10:53 36.4 C L 63 18 104/50 L 98 Laboratory Results Laboratory Results - last 24 hr 01/25/21 01/26/21 01/26/21 11:34 09:03 09:03 WBC 5.40 RBC 3.00 L Hgb 9.4 L Hct 28.1 L MCV 93.7 MCH 31.3 MCHC 33.5 RDW Std Deviation 57.5 H RDW Coeff of Chel 17.2 H Plt Count 183 MPV 8.5 Sodium 134 L Potassium 4.2 Chloride 98 Carbon Dioxide 31 Anion Gap 5.0 BUN 28 H Creatinine 1.12 Est Cr Clr Drug Dosing 46.4 Est GFR ( Amer) 68.1 Est GFR (Non-Af Amer) 58.7 BUN/Creatinine Ratio 25.1 H Glucose 121 H Calcium 8.5 Crossmatch See Detail Medications Administered Current Inpatient Medications Acetaminophen (Acetaminophen 325 Mg Tab) 650 mg PO Q4H PRN PRN Reason: pain/fever Stop: 02/07/21 13:26 Last Admin: 01/25/21 23:42 Dose: 650 mg Documented by: Bisacodyl (Bisacodyl 10 Mg Supp) 10 mg SC DAILY PRN PRN Reason: Constipation Stop: 02/15/21 13:17 Diphenhydramine HCl (Diphenhydramine 50 Mg/Ml Vial) 25 mg IV Q6 PRN PRN Reason: Itching Stop: 02/24/21 12:09 Last Admin: 01/25/21 17:46 Dose: 25 mg Documented by: Furosemide (Furosemide 40 Mg Tab) 40 mg PO [facility] Stop: 02/22/21 08:59 Last Admin: 01/26/21 08:31 Dose: 40 mg Documented by: Lactulose (Lactulose Syrup 20 Gm/30 Ml Udc) 40 [facility] Stop: 02/20/21 08:59 Last Admin: 01/26/21 08:31 Dose: 40 gm Documented by: Magnesium Hydroxide (Magnesium Hydroxide Susp 30 Ml Udc) 30 ml PO Q6H PRN PRN Reason: Constipation Stop: 02/15/21 13:17 Melatonin (Melatonin 3 Mg Tab) 3 mg PO HS PRN PRN Reason: Sleep Stop: 02/12/21 23:23 Last Admin: 01/21/21 20:27 Dose: 3 mg Documented by: Naloxone HCl (Naloxone Hcl 0.4 Mg/1 Ml Vial/Carp) 0.1 mg IV Q5M PRN PRN Reason: Oversedation/Resp Depression Stop: 02/15/21 13:17 Ondansetron HCl (Ondansetron Inj 2 Mg/Ml 2 Ml Vial) 4 mg IV Q6H PRN PRN Reason: Nausea And Vomiting Stop: 02/15/21 13:17 Polyethylene Glycol (Polyethylene (Miralax) 17 Gm Pack) 17 gm PO BID PRN PRN Reason: Constipation Stop: 02/11/21 01:02 Last Admin: 01/20/21 20:01 Dose: 17 gm Documented by: Spironolactone (Spironolactone 100 Mg Tab) 100 mg PO QAM TONY Stop: 02/14/21 08:59 Last Admin: 01/26/21 08:31 Dose: 100 mg Documented by: Tramadol HCl (Tramadol Hcl 50 Mg Tablet) 50 - 100 mg PO Q4H PRN PRN Reason: Pain & Pre PT Stop: 02/15/21 13:17 Last Admin: 01/18/21 01:08 Dose: 50 mg Documented by: PG Care Time/CCT Total # of Minutes Spent Total Time Spent with Patient: Total time spent is greater than 50% in coordination of care (as documented) at patient's floor/unit and/or counseling patient: Coding Level of Care Code 94311 Subseq Hosp Care Lvl 2 Diagnoses Hematoma of left lower leg S80.12XA Anemia D64.9 Acute on chronic diastolic (congestive) heart failure I50.33 Hepatic cirrhosis K74.60 Chronic venous insufficiency I87.2 Atrial fibrillation I48.20 Atrial fibrillation type: unspecified chronic HTN (hypertension), benign I10 Obstructive sleep apnea syndrome G47.33 Osteomyelitis of left ankle M86.9 (1) Atrial fibrillation Atrial fibrillation type: unspecified chronic Qualified Code(s): I48.20 - Chronic atrial fibrillation, unspecified
[2021-01-27] MEDS: SPIRONOLACTONE 100 MG TAB PO SCH (08:13)
[2021-01-27] MEDS: FUROSEMIDE 40 MG TAB PO SCH (08:13)
[2021-01-27] MEDS: LACTULOSE SYRUP 20 GM/30 ML UDC PO SCH (08:13)
[2021-01-27] MEDS: traMADol HCL 50 MG TABLET PO PRN (08:13)
--- NOTE | 2021-01-27 14:53 | Hospitalist Progress Note ---
Date of Service January 27, 2021 Assessment & Plan (1) Hematoma of left lower leg: Secondary to mechanical fall on rug at home. CT LEFT Femur on admission with hematoma measures approximately 30 x 11 x 7.5 cm MRI with enlargement of hematoma on 01/14 to 31.7 x 12.5 x 7.[address] of January 08, 2021. Orthopedics consulted, Dr. Blackmon POD #11 S/P I&D LEFT THIGH HEMATOMA 01/[address] Blackmon. EBL 25cc. * Per operative report, 1000cc large loculated hematoma evacuated and wound vac placed POD#9 s/p wound vac exchange on 01/[address] Dill. Tolerated well and size decreased with granulation tissue throughout without clot. * Lincoln placed and will get more accurate I&O however weights still inaccurate * -Weight 69.1kg 01/27. Near goal weight for CHF. Continue daily weights. POD #6 wound vac exchange in OR POD #4 repeat wound vac exchange in OR on 01/23, tolerated well, hb is 9 on 01/23 POD #2 wound vac exchange the morning of 01/25, had significant bleeding after the procedure from superior wound edge gave 2 units FFP, one unit PRBC went back to the OR, bleeding stopped by Dr. Blackmon, wound packed, SATNAM wrap H&H stable at 9.4 and 28.1, BP stable, no obvious bleeding from wound difficult situation as his INR will go up to 1.3, due to cirrhosis Will need repeat therapy evals to see about SNF now that he has had surgery will be in the hospital until orthopedics feels he is done with trips to the OR (2) Anemia: * See above, secondary to #1. H&H stable at 9.4 and 28.1 01/26 * Would place on PO iron once constipation resolved given iron low at 27, trans sat % 10L, transferrin 193L, TIBC wnl at 312 and ferritin 113- last BM 01/25/21 per patient. Bowel sounds present all 4 quadrants. Dulcolax, Miralax, and MOM ordered PRN for constipation. Consider starting tomorrow. * Venofer x 1 on 01/15, 01/17, 01/19 * 2 units PRBC prior to surgery and 1 unit PRBC given with surgery on 01/16 * one unit PRBC given on 01/25 due to ongoing bleeding, BP was stable, Hb is > 9 today (3) Acute on chronic diastolic (congestive) heart failure: * due to RIGHT SIDED HEART FAILURE/CIRRHOSIS * -- secondary to medication non-compliance/cognitive decline. * Was on Lasix 40mg QOD during admission but was on daily dose with 100mg spironolactone * BNP 3798 on 01/14 * ECHO with evidence for volume overload with elevated RVSP * gave Lasix 20mg IV after FFP and PRBC transfusions, lungs are clear * Lasix 40mg PO daily resumed on 01/27 (4) Hepatic cirrhosis: * Unclear whether the patient is taking spironolactone or furosemide at the current time. * no further work up, he is DNR * has coagulopathy due to cirrhosis, INR was 1.3 (5) Chronic venous insufficiency: * Stasis changes to b/l LE however with edema/fall and hx afib will get Doppler to r/o DVT * Dopplers NEGATIVE for DVT * Vascular also consulted given plans for outpatient Venaseal to see about getting this done sooner/while inpatient? * --> Plans for outpatient intervention * Was to complete course of doxycycline --> did have dose left. 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 * Not on anticoagulation - unclear reason for this although contraindicated with current hematoma --> had issues in past with intraocular bleeding as well as hematuria last admission while on Lovenox * Venous Dopplers 01/14 NEGATIVE for DVT * Rate controlled on no medication. Patient was bradycardic on my exam today. (7) HTN (hypertension), benign: * Chronic. BP controlled at 110/58 * On lasix/spironolactone as above * Previously on carvedilol, SATNAM in past -- unclear why this was discontinued (8) Obstructive sleep apnea syndrome: * Patient reports not on CPAP at home. * With R sided HF would benefit but patient continues to decline (9) Osteomyelitis of left ankle: * Chronic * No surgical intervention planned. * No antibiotics per [facility] infectious disease - just completed course of Doxycycline for 14 days per wound care (did not complete full course) for MSSA of wound in office * Repeat cx with pin-point growth, re-incubating --> corynebacterium * CRP elevated 6.7, ESR 70 (but could be from age?) --> IMPROVING ON REPEAT * no WBC/afebrile * Placed back on doxy on 01/14, switched to PO 01/17. Doxycycline completed. No further abx at this time. * Continued wound care while inpatient per ortho recommendations. Palliative consultation undertaken given LACE score >=11 for goals of care Patient changed to DNR/DNI Dispo: Continued inpatient stay until cleared for d/c by ortho. Will need repeat therapy evals and look back into SNF/rehab at d/c. Will need to check with Dr. Blackmon to see if he plans to follow the wound as an outpatient or if the patient needs referral to the wound clinic. Admission and Anticipated Discharge Date Admission Date: January 08, 2021 Subjective 85 year old male admitted to [facility] with a large hematoma of the left leg secondary to mechanical fall on a rug. He has underwent 6 I&Ds of the wound since admission. Most recent I&D was on 01/25/21. Wound VAC was held, and the wound was packed with Quick Clot and moistened Kerlix by Dr. Blackmon. SATNAM wrap applied for pressure dressing. Patient is concerned about physical deterioration while inpatient as he has not been ambulatory. He has no other complaints today, and denies pain. He reports his last BM was 01/25/21. Review of Systems Constitutional: no fever and no chills Eyes: no worsening vision Ear, Nose, Mouth, Throat: no dizziness Respiratory: no dyspnea Cardiovascular: no chest pain Gastrointestinal: + constipation (last BM 01/25/21 per the patient ); no abdominal pain, no nausea and no vomiting Physical Exam Physical Exam: Temp Pulse Resp BP Pulse Ox 36.2 C L 62 17 110/58 L 99 01/27/21 13:49 01/27/21 13:49 01/27/21 13:49 01/27/21 13:49 01/27/21 13:49 Patient is afebrile. He is hypotensive at 110/58, but is asymptomatic. Constitutional: + thin; no acute distress ENMT: Ears: no hearing impairment Neck: normal visual inspection Respiratory: normal respiratory effort, lungs clear to auscultation Cardiovascular: Rate/Rhythm: + bradycardic and + irregularly irregular Gastrointestinal (Abdomen): Inspection/Auscultation: normal bowel sounds Percussion/Palpation: abdomen soft; abdomen nontender Psychiatric: A+Ox3, euthymic affect Results & Data Results & Data ([facility]) Vital Signs (Past 12 Hours) Vital Signs Temp Pulse Resp BP BP Pulse Ox 01/27/21 13:49 36.2 C L 62 17 110/58 L 99 01/27/21 08:26 36.2 C L 62 18 110/60 97 01/27/21 07:02 36.8 C 60 17 118/53 L 93 PG Care Time/CCT Total # of Minutes Spent Total Time Spent with Patient: Total time spent is greater than 50% in coordination of care (as documented) at patient's floor/unit and/or counseling patient: Coding Level of Care Code 22032 Subseq Hosp Care Lvl 2 Diagnoses Hematoma of left lower leg S80.12XA Anemia D64.9 Acute on chronic diastolic (congestive) heart failure I50.33 Hepatic cirrhosis K74.60 Chronic venous insufficiency I87.2 Atrial fibrillation I48.20 Atrial fibrillation type: unspecified chronic HTN (hypertension), benign I10 Obstructive sleep apnea syndrome G47.33 Osteomyelitis of left ankle M86.9 (1) Atrial fibrillation Atrial fibrillation type: unspecified chronic Qualified Code(s): I48.20 - Chronic atrial fibrillation, unspecified
[2021-01-27] MEDS ORDERED: MICONAZOLE NITRATE POWDER 43 GM EXT PRN (15:34)
[2021-01-28] MEDS ORDERED: fentaNYL citrate 100 MCG/2 ML VIAL ONE (06:36)
[2021-01-28] MEDS ORDERED: ONDANSETRON INJ 2 MG/ML 2 ML VIAL ONE (06:36)
[2021-01-28] MEDS ORDERED: DEXAMETHASONE SOD INJ 4 MG/ML VIAL ONE (06:36)
[2021-01-28] MEDS ORDERED: PROPOFOL IV EMULSION 10 MG/ML 20 ML VIAL IV ONE (06:36)
[2021-01-28] MEDS ORDERED: LIDOCAINE HCL 2% 2 ML VIAL/AMP(20MG/ML) INFIL ONE (06:36)
--- NOTE | 2021-01-28 07:04 | History & Physical Bridge Note ---
Date of Service January 28, 2021 History & Physical Bridge Note I have examined the patient, reviewed the History & Physical and in the interval since the performance of the History & Physical I have noted the following changes of clinical significance: no changes noted
[2021-01-28] MEDS ORDERED: ONDANSETRON INJ 2 MG/ML 2 ML VIAL IV PRN (07:22)
[2021-01-28] MEDS ORDERED: ATROPINE SULFATE 0.1 MG/ML 10ML SYR IV PRN (07:22)
[2021-01-28] MEDS ORDERED: fentaNYL citrate 100 MCG/2 ML VIAL IV PRN (07:22)
[2021-01-28] MEDS ORDERED: ePHEDrine sulfate 50 MG/ML AMP IV PRN (07:22)
--- NOTE | 2021-01-28 07:22 | Anesthesiology Consultation ---
Date of Service January 28, 2021 Assessment & Plan (1) Encounter for pre-operative examination: Chart Review Chart Review: Acceptable Risk for Surgery and Patient NOT seen in Pre Admission Testing Consults Requested none ASA ASA4 Proposed Anesthesia Anesthesia Type: MAC Risk / Benefits Reviewed With: PT / POA / Parent / Guardian, Accepts Plan and Informed Consent Obtained History Surgery Operation Date: 01/16/21 09:50 Proposed Procedures p Left Thigh Incision and Drainage of Hematoma with Wound Vac Placement - Pérez Blackmon MD Operation Date: 01/18/21 13:20 Proposed Procedures p Left Incision and Drainage Thigh with wound Vac Change - Baltazar Dill MD Operation Date: 01/21/21 11:30 Proposed Procedures p Incision and Drainage Left Thigh with Wound Vac Change - Baltazar Dill MD Operation Date: 01/23/21 07:15 Proposed Procedures p Incision and Drainage thigh Left with Wound Vac Change - Pérez Blackmon MD Operation Date: 01/25/21 08:00 Proposed Procedures p Incision and Drainage Thigh Left With Wound Vac Change - Pérez Blackmon MD Operation Date: 01/25/21 08:20 Proposed Procedures p Incision and Drainage Extremity - Pérez Blackmon MD Operation Date: 01/28/21 07:15 Proposed Procedures p Incision and Drainage Thigh Left With Wound Vac Change - Pérez Blackmon MD Operation Date: 01/30/21 07:00 Proposed Procedures p Left Thigh Incision and Drainage with Wound Vac Change - Pérez Blackmon MD Height/Weight Height: 5 ft 10 in Weight: 69.9 kg Allergies Allergy/AdvReac Type Severity Reaction Status Date / Time merbromin Allergy Intermediate ALLERGIC Verified 01/08/21 09:06 TO MERCUROCHROME, RASH mercury (elemental) AdvReac Intermediate Rash Verified 01/08/21 09:06 sulfamethoxazole AdvReac Intermediate GI UPSET, Verified 01/08/21 09:06 FEVER, HEADACHE trimethoprim AdvReac Intermediate GI UPSET, Verified 01/08/21 09:06 FEVER, HEADACHE ciprofloxacin AdvReac Mild GI SYMPTOMS Verified 01/08/21 09:06 Medications Home Medications Medication Instructions Recorded Confirmed Last Taken No Known Home Medications 01/08/21 01/08/21 Unknown Active Medications Generic Name Dose Route Start Last Admin Trade Name Freq PRN Reason Stop Dose Admin Acetaminophen 650 mg 01/08/21 13:27 01/25/21 23:42 Acetaminophen 325 Mg Tab PO 02/07/21 13:26 650 mg Q4H PRN Administration pain/fever Diphenhydramine HCl 25 mg 01/25/21 12:10 01/25/21 17:46 Diphenhydramine 50 Mg/Ml Vial IV 02/24/21 12:09 25 mg Q6 PRN Administration Itching Furosemide 40 mg 01/23/21 09:00 01/27/21 08:13 Furosemide 40 Mg Tab PO 02/22/21 08:59 40 mg QAM TONY Administration Lactulose 40 gm 01/21/21 09:00 01/27/21 08:13 Lactulose Syrup 20 Gm/30 Ml Udc PO 02/20/21 08:59 40 gm QAM TONY Administration Melatonin 3 mg 01/13/21 23:24 01/21/21 20:27 Melatonin 3 Mg Tab PO 02/12/21 23:23 3 mg HS PRN Administration Sleep Miconazole Nitrate 1 appln 01/27/21 15:34 01/27/21 17:21 Miconazole Nitrate Powder 43 Gm EXT 02/26/21 15:33 1 appln PRN PRN Administration Affected Skin Folds Polyethylene Glycol 17 gm 01/12/21 01:03 01/20/21 20:01 Polyethylene (Miralax) 17 Gm Pack PO 02/11/21 01:02 17 gm BID PRN Administration Constipation Spironolactone 100 mg 01/15/21 09:00 01/27/21 08:13 Spironolactone 100 Mg Tab PO 02/14/21 08:59 100 mg QAM TONY Administration Tramadol HCl 50 - 100 mg 01/16/21 13:18 01/27/21 08:13 Tramadol Hcl 50 Mg Tablet PO 02/15/21 13:17 100 mg Q4H PRN Administration Pain & Pre PT NPO Date Last Intake of Fluids: 01/28/21 Time Last Intake of Fluids: 01:00 Last Intake of Fluids Comment: sips water with am medications Date Last Intake of Solids: 01/28/21 Time Last Intake of Solids: 01:00 Past Medical History Medical History Actinic keratosis Anemia Aortic aneurysm Aortic stenosis, mild Arrhythmia HX Atrial fibrillation Bifascicular bundle branch block BPH (benign prostatic hyperplasia) Bronchitis 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 Chronic cough Chronic obstructive pulmonary disease Duodenal ulcer HX Dyspnea Enlarged prostate with lower urinary tract symptoms (LUTS) History of duodenal ulcer History of edema History of gross hematuria History of hepatitis History of retinal hemorrhage Hypertension Hypoxia Laceration of scalp with delay in treatment Left knee DJD Left shoulder pain Liver cirrhosis Macular degeneration Pneumonia ON ANTIBIOTICS CURRENTLY X 5 DAYS THRU PCP Positive JESSICA (antinuclear antibody) Pulmonary hypertension Retinal hemorrhage Right-sided heart failure Sleep apnea Traumatic hematoma of left upper arm Traumatic open wound of right lower leg with delayed healing Upper respiratory infection 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 Mother , Age 34 No problems noted. Denies family history of Colon cancer Ovarian cancer Prostate cancer Myocardial infarction Breast cancer Past Surgical History Surgical History History of cardiac radiofrequency ablation S/P History of colonoscopy History of esophagogastroduodenoscopy (EGD) History of gastrostomy History of total knee replacement R/L Hx of transurethral resection of prostate Past Anesthesia History No Hx of Anesthesia Complications and No Family Hx of Anesthesia Complications History of PONV No Hx of PONV and No Hx of Motion Sickness Social History Smoking Status: Former smoker tobacco type: pipe Hx Alcohol Use: Yes Alcohol type: wine alcohol intake frequency: a few times a week Alcohol Intake Frequency Comment: sometimes with dinner Hx Substance Use: No substance use type: does not use Physical Exam Vital Signs Last Vital Signs Temp 36.6 C 01/28/21 07:06 Pulse 48 L 01/28/21 07:06 Resp 20 01/28/21 07:06 BP 102/49 L 01/28/21 07:06 Pulse Ox 97 01/28/21 07:06 ENMT Mouth: + edentulous Thyromental Distance: > or= 3.5 Finger Breadths Mallampati Class: II Neck normal visual inspection Respiratory normal respiratory effort Auscultation: + diminished lung sounds Cardiovascular Rate/Rhythm: regular rate and regular rhythm Psychiatric Orientation: alert Lab Results Anesthesia Preop Results Results Anesthesia Widget: WBC 5.40 K/uL (4.8-10.8) 01/26/21 Hgb 9.4 g/dL (14.0-18.0) L 01/26/21 Hct 28.1 % (42-52) L 01/26/21 Plt 183 K/uL (130-400) 01/26/21 Na 134 mmol/L (136-145) L 01/26/21 K 4.2 mmol/L (3.5-5.1) 01/26/21 Cl 98 mmol/L (98-107) 01/26/21 CO2 31 mmol/L (21-32) 01/26/21 BUN 28 mg/dl (7-18) H 01/26/21 Creat 1.12 mg/dl (0.6-1.4) 01/26/21 Glucose Level 121 mg/dl (70-99) H 01/26/21 PT 12.5 Seconds (9.0-12.0) H 01/25/21 PTT 48.7 Seconds (21.0-31.0) H* 01/08/21 INR 1.3 (0.9-1.1) H 01/25/21 TSH 4.990 uIu/ml (0.300-4.500) H 01/08/21 Free T4 0.95 ng/dl (0.8-1.6) 01/08/21 Urine Color Dark Yellow 01/08/21 Urine Appearance Clear (Clear) 01/08/21 Urine pH 6.0 (4.5-7.5) 01/08/21 Urine Specific Weidman 1.020 (1.000-1.030) 01/08/21 Urine Protein Trace (Negative) H 01/08/21 Urine Glucose (UA) Negative (Negative) 01/08/21 Urine Ketones Negative (Negative) 01/08/21 Urine Blood Negative (Negative) 01/08/21 Urine Nitrite Negative (Negative) 01/08/21 Urine Bilirubin Negative (Negative) 01/08/21 Urine Urobilinogen Negative (Negative) 01/08/21 Urine Leukocyte Esterase 1+ (Negative) H 01/08/21 Urine WBC (Auto) 5-10 /hpf (0-5) H 01/08/21 Urine RBC (Auto) 0-4 /hpf (0-4) 01/08/21 Urine Hyaline Casts (Auto) 1-5 /lpf (0-5) 01/08/21 Urine Epithelial Cells (Auto) 10-20 /lpf (0-5) H 01/08/21 Urine Bacteria (Auto) Negative (Negative) 01/08/21 COVID-19 PCR NEGATIVE (Negative) 01/08/21 Blood Type O Positive 01/25/21 Antibody Screen NEGATIVE 01/25/21 Testing Laboratory Results 01/26/21 09:03 01/26/21 09:03 PT 12.5 Seconds (9.0-12.0) H 01/25/21 16:17 INR 1.3 (0.9-1.1) H 01/25/21 16:17 APTT 48.7 Seconds (21.0-31.0) H* 01/08/21 08:42 Urine Color Dark Yellow 01/08/21 08:51 Urine Appearance Clear (Clear) 01/08/21 08:51 Urine pH 6.0 (4.5-7.5) 01/08/21 08:51 Ur Specific Weidman 1.020 (1.000-1.030) 01/08/21 08:51 Urine Protein Trace (Negative) H 01/08/21 08:51 Urine Glucose (UA) Negative (Negative) 01/08/21 08:51 Urine Ketones Negative (Negative) 01/08/21 08:51 Urine Nitrite Negative (Negative) 01/08/21 08:51 Ur Leukocyte Esterase 1+ (Negative) H 01/08/21 08:51 Urine WBC (Auto) 5-10 /hpf (0-5) H 01/08/21 08:51 Urine RBC (Auto) 0-4 /hpf (0-4) 01/08/21 08:51 U Hyaline Cast (Auto) 1-5 /lpf (0-5) 01/08/21 08:51 U Epithel Cells (Auto) 10-20 /lpf (0-5) H 01/08/21 08:51 Urine Bacteria (Auto) Negative (Negative) 01/08/21 08:51 Blood Type O Positive 01/25/21 11:34 Antibody Screen NEGATIVE 01/25/21 11:34 01/14/21 15:51 Gram Stain - Final Ankle Wound Culture - Final Corynebacterium species 01/08/21 08:42 Aerobic Blood Culture - Final Blood No growth in Aerobic bottle after 5 days. Anaerobic Blood Culture - Final No growth in Anaerobic bottle after 5 days. 01/08/21 08:31 Aerobic Blood Culture - Final Blood No growth in Aerobic bottle after 5 days. Anaerobic Blood Culture - Final No growth in Anaerobic bottle after 5 days. Electrocardiogram Date: 01/08/21 Findings: + RBBB Afib with PVCs, rate 78 Chest X-Ray Date: 01/08/21 XR chest 1V not portable CLINICAL HISTORY: weakness COMPARISON STUDY: Chest CT November 29, 2020. FINDINGS: There is no pneumothorax or pleural effusion. Cardiomegaly is unchanged. Pulmonary vascular congestion without overt pulmonary edema. Skinfold project over each hemithorax. IMPRESSION: 1. No pneumothorax. 2. Cardiomegaly with pulmonary vascular congestion, similar to prior exam. ACT 112: Negative or not required by law. Electronically signed by: Alan Chung M.D. 01/08/2021 11:07 AM Dictated: 01/08/21 1106Transcribed: 01/08/21 1106 Echocardiogram Date: 01/14/21 EF: 50-55 Other Findings: + atrial enlargement (biatrial) and + RVH (mild to moderate dilation) RVSP 40-50 mmHg, RV septal flattening Cervical Spine Date: 01/08/21 CT OF THE CERVICAL SPINE WITHOUT CONTRAST CLINICAL HISTORY: Neck pain following fall. COMPARISON STUDY: Cervical spine CT November 07, 2019. TECHNIQUE: Helical axial images of the cervical spine were obtained without IV contrast. Sagittal and coronal reconstructions were viewed. Automated exposure control was utilized for the study. A dose lowering technique was utilized adhering to the principles of ALARA. FINDINGS: Reversal of the normal cervical lordosis is again noted. Vertebral body heights are maintained. No acute cervical spine fracture or subluxation is present. There is no prevertebral edema. Facet joints are intact. Severe multilevel disc space narrowing, osteophytosis and facet arthrosis is unchanged. IMPRESSION: 1. No acute cervical spine fracture or subluxation. 2. Severe multilevel degenerative disc disease and facet arthrosis within the cervical spine. ACT 112: Negative or not required by law. Electronically signed by: Alan Chung M.D. 01/08/2021 9:51 AM Dictated: 01/08/21 0946
--- NOTE | 2021-01-28 08:10 | Operative Report ---
Post Operative Report Pre & Post Diagnosis Operation Date: 01/16/21 09:50 Pre-Op Diagnosis: Left leg hematoma Post-Op Diagnosis: Left leg hematoma Operation Date: 01/18/21 13:20 Pre-Op Diagnosis: Left leg hematoma Post-Op Diagnosis: Left leg hematoma Operation Date: 01/21/21 11:30 Pre-Op Diagnosis: LEFT LEG HEMATOMA Post-Op Diagnosis: LEFT LEG HEMATOMA Operation Date: 01/23/21 07:15 Pre-Op Diagnosis: Left thigh hematoma Post-Op Diagnosis: Left thigh hematoma Operation Date: 01/25/21 08:00 Pre-Op Diagnosis: Left Leg Hematoma Post-Op Diagnosis: Left Leg Hematoma Operation Date: 01/25/21 08:20 Pre-Op Diagnosis: Post-operative bleed, left thigh Post-Op Diagnosis: Post-operative bleed, left thigh Operation Date: 01/28/21 07:15 Pre-Op Diagnosis: Hematoma of Left Thigh Post-Op Diagnosis: Hematoma of Left Thigh Operation Date: 01/30/21 07:00 <No data on this case meets the specified criteria> I identified the patient and participated in the time-out.: Yes Procedure Operation Date: 01/16/21 09:50 Actual Procedures p Left Thigh Incision and Drainage of Hematoma with Wound Vac Placement(Left) - Pérez Blackmon MD Operation Date: 01/18/21 13:20 Actual Procedures p Left Incision and Drainage Thigh with wound Vac Change(Left) - Baltazar Dill MD Operation Date: 01/21/21 11:30 Actual Procedures p Incision and Drainage Left Thigh with Wound Vac Change(Left) - Baltazar Dill MD Operation Date: 01/23/21 07:15 Actual Procedures p Incision and Drainage Left Thigh with Wound Vac Change(Left) - Pérez Blackmon MD Operation Date: 01/25/21 08:00 Actual Procedures p Incision and Drainage Thigh Left With Wound Vac Change(Left) - Pérez Blackmon MD Operation Date: 01/25/21 08:20 Actual Procedures p Incision and Drainage Extremity(Left) - Pérez Blackmon MD Operation Date: 01/28/21 07:15 Actual Procedures p Irrigation of Left Thigh and Application of Left Thigh Wound Vac (Left) - Pérez Blackmon MD Operation Date: 01/30/21 07:00 <No data on this case meets the specified criteria> Surgeon Pérez Blackmon MD Project Account Manager None Estimated Blood Loss 1 Findings Consistent with Post-Op Diagnosis Specimens None Drains Wound VAC Anesthesia Type MAC Complications none Disposition Accompanied Patient To Recovery: No Disposition: Recovery Room Indications Patient is 85. He is status post drainage of a left thigh hematoma. He has hepatic disease and mild coagulopathy. He is status post a post dressing change wound bleeding event requiring return to the OR last Thursday. The wound has been packed off until today with gauze and quick clot. Description of Procedure Informed consent obtained. Patient identified. He identified the procedure site as the left thigh. I marked with my initials. A preoperative surgical timeout was performed. A preop dose of IV antibiotics was not indicated. He was taken to the operating room positioned supine on the operating room table with a bump under the left thigh.The dressing was dry with no bleeding. DVT prophylaxis not indicated. The dressing was carefully removed. There was 1 tiny skin bleeder about 5 cm distal to the apex of the wound on the anterior skin edge which was cauterized. The wound was then irrigated and looked completely healthy. The previous area that had been bleeding up in the actual apex of the proximal wound was completely dry. I then fashioned a wound VAC sponge slightly smaller than the existing opening. 2 sponges were inserted into the large wound. I then took 1 smaller sponge and placed it over the small 2 cm area posteriorly which had a depth of about 3 to 4 mm healing well. This was covered with plastic and then bridge was created. An additional sponge was applied followed by the suction device which was deployed with good results. Patient awakened from anesthesia without difficulty taken to recovery room in stable condition. There were no specimens or complications. There were no counts. Blood loss was 1 cc. At the conclusion of the operation I spoke to patient's informed her of my findings. Plan is to come back Thursday for a wound VAC change. He did have some discomfort initially with changing the wound VAC which required fentanyl. I attest to the content of the Intraoperative Record and any orders documented therein. Any exceptions are noted below.
--- NOTE | 2021-01-28 08:37 | Anesthesiology Progress Note ---
Date of Service January 28, 2021 Anesthesia Post Procedure Vital Signs Vital Signs: Temp Pulse Resp BP BP Pulse Ox 01/28/21 07:06 36.6 C 48 L 20 102/49 L 97 01/28/21 06:53 36.4 C L 58 L 17 108/45 L 99 01/27/21 22:04 36.2 C L 54 L 20 109/48 L 98 01/27/21 13:49 36.2 C L 62 17 110/58 L 99 Pain Intensity Left Thigh: Pain Intensity: 3 Left Leg: Pain Intensity: 8 Transfer of Care Handoff Completed per policy Notes Mental Status: alert / awake / arousable Patient Amnestic to Procedure: Yes Nausea / Vomiting: adequately controlled Pain: adequately controlled Airway Patency, RR, SpO2: stable & adequate BP & HR: stable & adequate Hydration State: stable & adequate Anesthetic Complications: no major complications apparent
--- NOTE | 2021-01-28 09:12 | Hospitalist Progress Note ---
Date of Service January 28, 2021 Assessment & Plan (1) Hematoma of left lower leg: Secondary to fall on rug at home. CT LEFT Femur on admission with hematoma measures approximately 30 x 11 x 7.5 cm MRI with enlargement of hematoma on 01/14 to 31.7 x 12.5 x 7.[address] of January 08, 2021. Orthopedics consulted, Dr. Blackmon POD S/P I&D LEFT THIGH HEMATOMA 01/[address] Blackmon. EBL 25cc. * Per operative report, 1000cc large loculated hematoma evacuated and wound vac placed POD s/p wound vac exchange on 01/[address] Dill. Tolerated well and size decreased with granulation tissue throughout without clot. * Lincoln placed and will get more accurate I&O however weights still inaccurate * --> Continuing lasix 40mg IV daily (WEIGHT NOW FINALLY 72kg/157lb down from 74.6kg on admission) and will continue for tomorrow and continue to monitor (dry weight closer to 148lb per CHF clinic) POD 01/21/21 wound vac exchange in OR POD repeat wound vac exchange in OR on 01/23, tolerated well, hb is 9 on 01/23 POD wound vac exchange the morning of 01/25, had significant bleeding after the procedure from superior wound edge gave 2 units FFP, one unit PRBC went back to the OR, bleeding stopped by Dr. Blackmon, wound packed, SATNAM wrap scheduled for OR 01/28/21, anesthesia assisted wound vac changes Will need repeat therapy evals to see about SNF now that he has had surgery will be in the hospital until orthopedics feels he is done with trips to the OR (2) Anemia: * See above, secondary to #1 * Would place on PO iron once constipation resolved given iron low at 27, trans sat % 10L, transferrin 193L, TIBC wnl at 312 and ferritin 113 * Venofer x 1 on 01/15, 01/17, 01/19 * 2 units PRBC prior to surgery and 1 unit PRBC given with surgery on 01/16 * one unit PRBC given on 01/25 due to ongoing bleeding, BP was stable, Hb is > 9 today (3) Acute on chronic diastolic (congestive) heart failure: * due to RIGHT SIDED HEART FAILURE/CIRRHOSIS * -- secondary to medication non-compliance/cognitive decline. * Was on Lasix 40mg QOD during admission but was on daily dose with 100mg spironolactone * BNP 3798 on 01/14 * ECHO with evidence for volume overload with elevated RVSP * gave Lasix 20mg IV after FFP and PRBC transfusions, lungs are clear * resumed Lasix 40mg PO daily on 01/27 (4) Hepatic cirrhosis: * Unclear whether the patient is taking spironolactone or furosemide at the current time. * no further work up * has coagulopathy due to cirrhosis, INR was 1.3 (5) Chronic venous insufficiency: * Stasis changes to b/l LE however with edema/fall and hx afib * Dopplers NEGATIVE for DVT * Vascular also consulted given plans for outpatient Venaseal--> Plans for outpatient intervention * Was to complete course of doxycycline --> did have dose left. Erythema/cellulitis to LE and put back on Doxy with improvement and would continue course at d/c * Doxycycline TO PO BID was to treat dermatitis and also history of osteomyelitis of ankle (6) Atrial fibrillation: * Not on anticoagulation - unclear reason for this although contraindicated with current hematoma --> had issues in past with intraocular bleeding as well as hematuria last admission while on Lovenox * Venous Dopplers 01/14 NEGATIVE for DVT * Rate controlled on no medication (7) HTN (hypertension), benign: * Chronic. BP controlled 110/51 and continues to tolerate diuresis * On lasix/spironolactone as above * Previously on carvedilol, SATNAM in past -- unclear why this was discontinued (8) Obstructive sleep apnea syndrome: * Patient reports not on CPAP at home. * With R sided HF would benefit but patient continues to decline (9) Osteomyelitis of left ankle: * Chronic * No surgical intervention planned. * [facility] - just completed course of Doxycycline for 14 days per wound care (did not complete full course) for MSSA of wound in office * Repeat cx with pin-point growth, re-incubating --> corynebacterium * CRP elevated 6.7, ESR 70 (but could be from age?) --> IMPROVING ON REPEAT * no WBC/afebrile * Placed back on doxy on 01/14, switched to PO 01/17 and would complete 7-10 day course. Continued for erythema which is improved but now some erythema around wound vac as well * Continued wound care while inpatient Palliative consultation undertaken given LACE score >=11 for goals of care Patient changed to DNR/DNI Dispo: continued inpatient stay, plan for additional wound vac changes per ortho Will need repeat therapy evals and look back into SNF/rehab at d/c Admission and Anticipated Discharge Date Admission Date: January 08, 2021 Subjective pt was in good spirits however is for another OR related wound vac change. Review of Systems Review of Systems: Mild distress and moderate fatigue no headache, blurry or double vision no speech or swallowing issues no chest pain, pressure or palpitations no shortness of breath, cough or wheezes no abdominal pain, nausea or vomiting, diarrhea or constipation no dysuria, hematuria or frequency some left thigh lateral pain no back pain, CVA tenderness or radicular pain chronic le skin changes global weakness with critical illness myopathy no complaints of anxiety or depression. Physical Exam Physical Exam: The patient appeared well nourished and normally developed. Vital signs as documented. Head exam is normocephalic atraumatic no scleral icterus Neck is without JVD, thyromegaly, or carotid bruits. Lungs are clear to auscultation, no focal loss of breath sounds Cardiac exam, Rhythm is regular.. No murmurs, rubs or gallops. Abdominal exam reveals normal bowel sounds, soft non tender, no masses Extremities are nonedematous and both pedal pulses are present Neurologic exam is alert and oriented, no focal loss of strength or sensation Skin is with left leg lateral wound VAC in place he is chronic venous stasis changes to his bilateral lower extremities with marked skin increased pigmentation and additional small open area to his left medial malleolus Psychologically is without concerns for anxiety or depression Results & Data Results & Data ([facility]) Vital Signs (Past 12 Hours) Vital Signs Temp Pulse Pulse Resp BP BP Pulse Ox 01/28/21 08:51 98.4 F 50 L 11 L 104/52 L 92 01/28/21 08:38 46 L 10 L 96/45 L 96 01/28/21 08:25 48 L 13 106/51 L 100 01/28/21 08:16 45 L 19 104/48 L 99 01/28/21 08:09 97.9 F 55 L 17 88/44 L 91 01/28/21 07:06 97.9 F 48 L 20 102/49 L 97 01/28/21 06:53 97.5 F L 58 L 17 108/45 L 99 01/27/21 22:04 97.2 F L 54 L 20 109/48 L 98 PG Care Time/CCT Total # of Minutes Spent Total Time Spent with Patient: Total time spent is greater than 50% in coordination of care (as documented) at patient's floor/unit and/or counseling patient: Coding Level of Care Code 85784 Subseq Hosp Care Lvl 2 Diagnoses Hematoma of left lower leg S80.12XA Anemia D64.9 Acute on chronic diastolic (congestive) heart failure I50.33 Hepatic cirrhosis K74.60 Chronic venous insufficiency I87.2 Atrial fibrillation I48.20 Atrial fibrillation type: unspecified chronic HTN (hypertension), benign I10 Obstructive sleep apnea syndrome G47.33 Osteomyelitis of left ankle M86.9 (1) Atrial fibrillation Atrial fibrillation type: unspecified chronic Qualified Code(s): I48.20 - Chronic atrial fibrillation, unspecified
[2021-01-28] MEDS: FUROSEMIDE 40 MG TAB PO SCH (09:24)
[2021-01-28] MEDS: SPIRONOLACTONE 100 MG TAB PO SCH (09:26)
[2021-01-28] MEDS: LACTULOSE SYRUP 20 GM/30 ML UDC PO SCH (09:26)
--- NOTE | 2021-01-28 11:48 | Palliative Care Progress Note ---
Date of Service January 28, 2021 Assessment & Plan (1) Palliative care encounter: I spoke with Mr. Parekh at the bedside. We discussed taking a step back and looking at the reality of his current situation with continuing to go to the OR for I/D for his wound. Realistically, he has weeks to even months of wound vac/I&D/and rehabilitation. Progressively, he has been getting weaker and weaker. I did absentee-shawnee back to see if aggressive measures continued to be linear with his overall wishes. He paused and said that this is something we need to talk with his , Summer, about. I did reach out to Mrs. Parekh on the phone at [phone] and left her a voicemail to discuss goals of care further. Previous conversation with his indicated that she has noticed an overall decline related to his hepatic disease, etc. Update: I talked with Summer on the phone and she said that her and her daughter Madalyn are getting concerns with his prolonged hospitalization and progressive weakness. We discussed overall goals of his care. Ultimately, he will be requiring OR debridement under anesthesia due to him having increased discomfort with the wound vac change every other day. We discussed opportunity of shifting gears to a more conservative approach that would include returning home with home health and wound vac changes at the wound center and if no signs of improvement, possibly shift to a more comfort approach through hospice and forgo further wound vac intervention. Another consideration is because of the timing of the wound vac changes occurring possibly a SNF would be beneficial from a transport and care standpoint for a few weeks to monitor progress and work on strengthening. He has a living will and would not want extraordinary measures to prolong his life. Palliative Medicine will follow. I discussed the above with Dr. Reveles who will help coordinate care. (2) Hematoma of left thigh: (3) Fall: (4) Hepatic cirrhosis: (5) Chronic venous insufficiency: (6) Osteomyelitis of left ankle: (7) Right-sided heart failure: Admission and Anticipated Discharge Date Admission Date: January 08, 2021 Subjective Pt progressively weaker He has received 7 I/D and wound vac replacement Next one planned on 01/28 See A/P for further details Review of Systems Review of Systems: Lismore System Assessment Scale: Pain: 1/3 Tiredness: 0/3 Lack of Appetite: 0/3 Shortness of breath: 0/3 Anxiety: 1/3 Palliative Performance Scale: 40% Physical Exam Constitutional: well developed, + frail appearing, cooperative and comfortable ENMT: Nose: + dry nasal mucous membranes Respiratory: normal respiratory effort Auscultation: + diminished lung sounds Cardiovascular: Rate/Rhythm: regular rhythm and + bradycardic Extremities: normal capillary refill Gastrointestinal (Abdomen): normal bowel sounds, soft, nontender, no hepatosplenomegaly Skin: + incision (wound vac left anterior thigh) Psychiatric: A+Ox3, euthymic affect Results & Data ([facility]) Vital Signs (Past 12 Hours) Vital Signs Temp Pulse Pulse Resp BP BP Pulse Ox 01/28/21 11:05 36.5 C 42 L 12 92/49 L 99 01/28/21 10:14 36.4 C L 53 L 17 104/56 L 94 01/28/21 09:31 36.3 C L 58 L 18 124/58 L 100 01/28/21 09:05 36.4 C L 52 L 18 116/45 L 98 01/28/21 08:51 36.9 C 50 L 11 L 104/52 L 92 01/28/21 08:38 46 L 10 L 96/45 L 96 01/28/21 08:25 48 L 13 106/51 L 100 01/28/21 08:16 45 L 19 104/48 L 99 01/28/21 08:09 36.6 C 55 L 17 88/44 L 91 01/28/21 07:06 36.6 C 48 L 20 102/49 L 97 01/28/21 06:53 36.4 C L 58 L 17 108/45 L 99 PG Care Time/CCT Total # of Minutes Spent Total Time Spent with Patient: Total time spent is greater than 50% in coordination of care (as documented) at patient's floor/unit and/or counseling patient: 35 minutes with > 50% of that time spent assessing the patient, discussing goals of care with family and patient, and collaborating with IDT Coding Level of Care Code 60613 Subseq Hosp Care Lvl 3 Diagnoses Palliative care encounter Z51.5 Hematoma of left thigh S70.12XA Encounter type: initial encounter Fall W19.XXXA Encounter type: initial encounter Hepatic cirrhosis K74.60 Chronic venous insufficiency I87.2 Osteomyelitis of left ankle M86.9 Right-sided heart failure I50.810 Time Spent (min) 35 (1) Hematoma of left thigh Encounter type: initial encounter Qualified Code(s): S70.12XA - Contusion of left thigh, initial encounter (2) Fall Encounter type: initial encounter Qualified Code(s): W19.XXXA - Unspecified fall, initial encounter
[2021-01-29] MEDS: LACTULOSE SYRUP 20 GM/30 ML UDC PO SCH (08:13)
[2021-01-29] MEDS: FUROSEMIDE 40 MG TAB PO SCH (08:13)
[2021-01-29] MEDS: SPIRONOLACTONE 100 MG TAB PO SCH (08:13)
[2021-01-29 09:43] LABS: Hematocrit (blood only) 28.5 % (42-52); Hemoglobin 9.3 g/dL (14.0-18.0); Mean Corpuscular Hgb Conc 32.6 g/dL (32-36); Mean Platelet Volume 8.5 fL (7.4-10.4); Platelet Count 236 K/uL (130-400); White Blood Count 5.58 K/uL (4.8-10.8)
--- NOTE | 2021-01-29 09:43 | Orthopedic Progress Note ---
Date of Service January 29, 2021 Assessment & Plan (1) Hematoma of left thigh: N.p.o. after midnight. Plan is to return to the operating room in the morning for wound VAC change and assessment of wound. Updated consent form placed in the patient's chart. Obtained consent will be obtained when Dr. Blackmon see the patient later today. Patient is not on any antibiotics. He does not require any preoperative antibiotics. He is not on any blood thinners. (2) Acute blood loss anemia: Admission and Anticipated Discharge Date Admission Date: January 08, 2021 Subjective This 85-year-old male seen this morning on the third floor. He is currently resting in bed eating breakfast. He has no complaints of pain, fever, chills, sweats, lethargy, chest pain shortness of breath, nausea vomiting or diarrhea. States he has some minimal tenderness over the left thigh at the site of the wound VAC. States that it seems to be draining well. Review of Systems Review of Systems: All systems reviewed & are unremarkable except as noted in Subjective Physical Exam Physical Exam: Left thigh: Wound VAC application site is clean dry and intact with no drainage. There is 300 mL of clear blood-tinged fluid in the wound VAC canister. Patient does have some edema around the VAC site with tenderness to palpation. He is able to actively dorsi and plantarflex his foot without difficulty. He can perform a straight leg raise test and flex his knee to 90 degrees. He is neurovascularly intact in the left lower extremity. Results & Data ([facility]) Vital Signs (Past 12 Hours) Vital Signs Temp Pulse Resp BP BP Pulse Ox 01/29/21 07:43 36.6 C 48 L 16 103/50 L 92 01/29/21 03:32 36.7 C 58 L 18 105/58 L 93 01/28/21 23:13 37.0 C 61 19 101/54 L 93 Laboratory Results 01/29/21 Range/Units 09:29 WBC Pending RBC Pending Hgb Pending Hct Pending MCV Pending MCH Pending MCHC Pending Plt Count Pending (1) Hematoma of left thigh Encounter type: initial encounter Qualified Code(s): S70.12XA - Contusion of left thigh, initial encounter
--- NOTE | 2021-01-29 15:30 | Hospitalist Progress Note ---
Date of Service January 29, 2021 Assessment & Plan (1) Hematoma of left lower leg: Secondary to fall on rug at home. CT LEFT Femur on admission with hematoma measures approximately 30 x 11 x 7.5 cm MRI with enlargement of hematoma on 01/14 to 31.7 x 12.5 x 7.[address] of January 08, 2021. Orthopedics consulted, Dr. Blackmon POD S/P I&D LEFT THIGH HEMATOMA 01/[address] Blackmon. EBL 25cc. * Per operative report, 1000cc large loculated hematoma evacuated and wound vac placed POD s/p wound vac exchange on 01/[address] Dill. Tolerated well and size decreased with granulation tissue throughout without clot. * Lincoln placed and will get more accurate I&O however weights still inaccurate * --> Continuing lasix 40mg IV daily (WEIGHT NOW FINALLY 72kg/157lb down from 74.6kg on admission) and will continue for tomorrow and continue to monitor (dry weight closer to 148lb per CHF clinic) POD 01/21/21 wound vac exchange in OR POD repeat wound vac exchange in OR on 01/23, tolerated well, hb is 9 on 01/23 POD wound vac exchange the morning of 01/25, had significant bleeding after the procedure from superior wound edge gave 2 units FFP, one unit PRBC went back to the OR, bleeding stopped by Dr. Blackmon, wound packed, SATNAM wrap OR 01/28/21, anesthesia assisted wound vac changes OR scheduled for 01/30 Will need repeat therapy evals to see about SNF now that he has had surgery will be in the hospital until orthopedics feels he is done with trips to the OR (2) Anemia: * See above, secondary to #1 * Would place on PO iron once constipation resolved given iron low at 27, trans sat % 10L, transferrin 193L, TIBC wnl at 312 and ferritin 113 * Venofer x 1 on 01/15, 01/17, 01/19 * 2 units PRBC prior to surgery and 1 unit PRBC given with surgery on 01/16 * one unit PRBC given on 01/25 due to ongoing bleeding, BP was stable, Hb is stable (3) Acute on chronic diastolic (congestive) heart failure: * due to RIGHT SIDED HEART FAILURE/CIRRHOSIS * -- secondary to medication non-compliance/cognitive decline. * Was on Lasix 40mg QOD during admission but was on daily dose with 100mg spironolactone * BNP 3798 on 01/14 * ECHO with evidence for volume overload with elevated RVSP * gave Lasix 20mg IV after FFP and PRBC transfusions, lungs are clear * resumed Lasix 40mg PO daily on 01/27 (4) Hepatic cirrhosis: * Unclear whether the patient is taking spironolactone or furosemide at the current time. * no further work up * has coagulopathy due to cirrhosis, INR was 1.3 (5) Chronic venous insufficiency: * Stasis changes to b/l LE however with edema/fall and hx afib * Dopplers NEGATIVE for DVT * Vascular also consulted given plans for outpatient Venaseal--> Plans for outpatient intervention * Was to complete course of doxycycline --> did have dose left. Erythema/cellulitis to LE and put back on Doxy with improvement and would continue course at d/c * Doxycycline TO PO BID was to treat dermatitis and also history of osteomyelitis of ankle (6) Atrial fibrillation: * Not on anticoagulation - unclear reason for this although contraindicated with current hematoma --> had issues in past with intraocular bleeding as well as hematuria last admission while on Lovenox * Venous Dopplers 01/14 NEGATIVE for DVT * Rate controlled on no medication (7) HTN (hypertension), benign: * Chronic. BP controlled 110/51 and continues to tolerate diuresis * On lasix/spironolactone as above * Previously on carvedilol, SATNAM in past -- unclear why this was discontinued (8) Obstructive sleep apnea syndrome: * Patient reports not on CPAP at home. * With R sided HF would benefit but patient continues to decline (9) Osteomyelitis of left ankle: * Chronic * No surgical intervention planned. * [facility] - just completed course of Doxycycline for 14 days per wound care (did not complete full course) for MSSA of wound in office * Repeat cx with pin-point growth, re-incubating --> corynebacterium * CRP elevated 6.7, ESR 70 (but could be from age?) --> IMPROVING ON REPEAT * no WBC/afebrile * Placed back on doxy on 01/14, switched to PO 01/17 and would complete 7-10 day course. Continued for erythema which is improved but now some erythema around wound vac as well * Continued wound care while inpatient Palliative consultation undertaken given LACE score >=11 for goals of care Patient changed to DNR/DNI Dispo: continued inpatient stay, plan for additional wound vac changes per ortho Will need repeat therapy evals and look back into SNF/rehab at d/c Admission and Anticipated Discharge Date Admission Date: January 08, 2021 Subjective This 85-year-old male. He has no complaints of pain, fever, chills, sweats, lethargy, chest pain shortness of breath, nausea vomiting or diarrhea. States he has some minimal tenderness over the left thigh at the site of the wound VAC. States that it seems to be draining well. Review of Systems Review of Systems: Mild distress and moderate fatigue no headache, blurry or double vision no speech or swallowing issues no chest pain, pressure or palpitations no shortness of breath, cough or wheezes no abdominal pain, nausea or vomiting, diarrhea or constipation no dysuria, hematuria or frequency some left thigh lateral pain no back pain, CVA tenderness or radicular pain chronic le skin changes global weakness with critical illness myopathy no complaints of anxiety or depression. Musculoskeletal: + myalgia (left leg pain, thigh, from hematoma) Physical Exam Physical Exam: The patient appeared well nourished and normally developed. Vital signs as documented. Head exam is normocephalic atraumatic no scleral icterus Neck is without JVD, thyromegaly, or carotid bruits. Lungs are clear to auscultation, no focal loss of breath sounds Cardiac exam, Rhythm is regular.. No murmurs, rubs or gallops. Abdominal exam reveals normal bowel sounds, soft non tender, no masses Extremities are nonedematous and both pedal pulses are present Neurologic exam is alert and oriented, no focal loss of strength or sensation Skin is with left leg lateral wound VAC in place he is chronic venous stasis changes to his bilateral lower extremities with marked skin increased pigmentation and additional small open area to his left medial malleolus Psychologically is without concerns for anxiety or depression Results & Data Results & Data ([facility]) Vital Signs (Past 12 Hours) Vital Signs Temp Pulse Resp BP BP Pulse Ox 01/29/21 15:18 97.9 F 58 L 16 125/61 94 01/29/21 11:00 98.2 F 50 L 16 110/60 94 01/29/21 07:43 97.9 F 48 L 16 103/50 L 92 01/29/21 03:32 98.1 F 58 L 18 105/58 L 93 PG Care Time/CCT Total # of Minutes Spent Total Time Spent with Patient: Total time spent is greater than 50% in coordination of care (as documented) at patient's floor/unit and/or counseling patient: Coding Level of Care Code 85093 Subseq Hosp Care Lvl 3 Diagnoses Hematoma of left lower leg S80.12XA Anemia D64.9 Acute on chronic diastolic (congestive) heart failure I50.33 Hepatic cirrhosis K74.60 Chronic venous insufficiency I87.2 Atrial fibrillation I48.20 Atrial fibrillation type: unspecified chronic HTN (hypertension), benign I10 Obstructive sleep apnea syndrome G47.33 Osteomyelitis of left ankle M86.9 (1) Atrial fibrillation Atrial fibrillation type: unspecified chronic Qualified Code(s): I48.20 - Chronic atrial fibrillation, unspecified
[2021-01-30] MEDS ORDERED: ONDANSETRON INJ 2 MG/ML 2 ML VIAL ONE (06:49)
[2021-01-30] MEDS ORDERED: fentaNYL citrate 100 MCG/2 ML VIAL ONE (06:50)
--- NOTE | 2021-01-30 06:51 | History & Physical Bridge Note ---
Date of Service January 30, 2021 History & Physical Bridge Note I have examined the patient, reviewed the History & Physical and in the interval since the performance of the History & Physical I have noted the following changes of clinical significance: no changes noted
--- NOTE | 2021-01-30 06:53 | Anesthesiology Consultation ---
Date of Service January 30, 2021 Assessment & Plan Chart Review Chart Review: Acceptable Risk for Surgery and Patient NOT seen in Pre Admission Testing Consults Requested none ASA ASA4 Proposed Anesthesia Anesthesia Type: General Risk / Benefits Reviewed With: PT / POA / Parent / Guardian, Accepts Plan and Informed Consent Obtained History Surgery Operation Date: 01/16/21 09:50 Proposed Procedures p Left Thigh Incision and Drainage of Hematoma with Wound Vac Placement - Pérez Blackmon MD Operation Date: 01/18/21 13:20 Proposed Procedures p Left Incision and Drainage Thigh with wound Vac Change - Baltazar Dill MD Operation Date: 01/21/21 11:30 Proposed Procedures p Incision and Drainage Left Thigh with Wound Vac Change - Baltazar Dill MD Operation Date: 01/23/21 07:15 Proposed Procedures p Incision and Drainage thigh Left with Wound Vac Change - Pérez Blackmon MD Operation Date: 01/25/21 08:00 Proposed Procedures p Incision and Drainage Thigh Left With Wound Vac Change - Pérez Blackmon MD Operation Date: 01/25/21 08:20 Proposed Procedures p Incision and Drainage Extremity - Pérez Blackmon MD Operation Date: 01/28/21 07:15 Proposed Procedures p Incision and Drainage Thigh Left With Wound Vac Change - Pérez Blackmon MD Operation Date: 01/30/21 07:00 Proposed Procedures p Left Thigh Incision and Drainage with Wound Vac Change - Pérez Blackmon MD Height/Weight Height: 5 ft 10 in Weight: 63.8 kg Allergies Allergy/AdvReac Type Severity Reaction Status Date / Time merbromin Allergy Intermediate ALLERGIC Verified 01/08/21 09:06 TO MERCUROCHROME, RASH mercury (elemental) AdvReac Intermediate Rash Verified 01/08/21 09:06 sulfamethoxazole AdvReac Intermediate GI UPSET, Verified 01/08/21 09:06 FEVER, HEADACHE trimethoprim AdvReac Intermediate GI UPSET, Verified 01/08/21 09:06 FEVER, HEADACHE ciprofloxacin AdvReac Mild GI SYMPTOMS Verified 01/08/21 09:06 Medications Home Medications Medication Instructions Recorded Confirmed Last Taken No Known Home Medications 01/08/21 01/08/21 Unknown Active Medications Generic Name Dose Route Start Last Admin Trade Name Freq PRN Reason Stop Dose Admin Acetaminophen 650 mg 01/08/21 13:27 01/25/21 23:42 Acetaminophen 325 Mg Tab PO 02/07/21 13:26 650 mg Q4H PRN Administration pain/fever Bisacodyl 10 mg 01/16/21 13:18 01/29/21 20:47 Bisacodyl 10 Mg Supp WA 02/15/21 13:17 10 mg DAILY PRN Administration Constipation Diphenhydramine HCl 25 mg 01/25/21 12:10 01/25/21 17:46 Diphenhydramine 50 Mg/Ml Vial IV 02/24/21 12:09 25 mg Q6 PRN Administration Itching Furosemide 40 mg 01/23/21 09:00 01/29/21 08:13 Furosemide 40 Mg Tab PO 02/22/21 08:59 40 mg QAM TONY Administration Lactulose 40 gm 01/21/21 09:00 01/29/21 08:13 Lactulose Syrup 20 Gm/30 Ml Udc PO 02/20/21 08:59 40 gm QAM TONY Administration Melatonin 3 mg 01/13/21 23:24 01/21/21 20:27 Melatonin 3 Mg Tab PO 02/12/21 23:23 3 mg HS PRN Administration Sleep Miconazole Nitrate 1 appln 01/27/21 15:34 01/27/21 17:21 Miconazole Nitrate Powder 43 Gm EXT 02/26/21 15:33 1 appln PRN PRN Administration Affected Skin Folds Polyethylene Glycol 17 gm 01/12/21 01:03 01/20/21 20:01 Polyethylene (Miralax) 17 Gm Pack PO 02/11/21 01:02 17 gm BID PRN Administration Constipation Spironolactone 100 mg 01/15/21 09:00 01/29/21 08:13 Spironolactone 100 Mg Tab PO 02/14/21 08:59 100 mg QAM TONY Administration Tramadol HCl 50 - 100 mg 01/16/21 13:18 01/27/21 08:13 Tramadol Hcl 50 Mg Tablet PO 02/15/21 13:17 100 mg Q4H PRN Administration Pain & Pre PT NPO Date Last Intake of Fluids: 01/29/21 Time Last Intake of Fluids: 23:00 Last Intake of Fluids Comment: sips water with am medications Date Last Intake of Solids: 01/29/21 Time Last Intake of Solids: 19:00 Past Medical History Medical History Actinic keratosis Anemia Aortic aneurysm Aortic stenosis, mild Arrhythmia HX Atrial fibrillation Bifascicular bundle branch block BPH (benign prostatic hyperplasia) Bronchitis 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 Chronic cough Chronic obstructive pulmonary disease Duodenal ulcer HX Dyspnea Enlarged prostate with lower urinary tract symptoms (LUTS) History of duodenal ulcer History of edema History of gross hematuria History of hepatitis History of retinal hemorrhage Hypertension Hypoxia Laceration of scalp with delay in treatment Left knee DJD Left shoulder pain Liver cirrhosis Macular degeneration Pneumonia ON ANTIBIOTICS CURRENTLY X 5 DAYS THRU PCP Positive JESSICA (antinuclear antibody) Pulmonary hypertension Retinal hemorrhage Right-sided heart failure Sleep apnea Traumatic hematoma of left upper arm Traumatic open wound of right lower leg with delayed healing Upper respiratory infection 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 Mother , Age 34 No problems noted. Denies family history of Colon cancer Ovarian cancer Prostate cancer Myocardial infarction Breast cancer Past Surgical History Surgical History History of cardiac radiofrequency ablation S/P History of colonoscopy History of esophagogastroduodenoscopy (EGD) History of gastrostomy History of total knee replacement R/L Hx of transurethral resection of prostate Past Anesthesia History No Hx of Anesthesia Complications and No Family Hx of Anesthesia Complications History of PONV No Hx of PONV and No Hx of Motion Sickness Social History Smoking Status: Former smoker tobacco type: pipe Hx Alcohol Use: Yes Alcohol type: wine alcohol intake frequency: a few times a week Alcohol Intake Frequency Comment: sometimes with dinner Hx Substance Use: No substance use type: does not use Physical Exam Vital Signs Last Vital Signs Temp 36.3 C L 01/30/21 06:35 Pulse 67 01/30/21 06:35 Resp 20 01/30/21 06:35 BP 104/48 L 01/30/21 06:35 Pulse Ox 91 01/30/21 06:35 Constitutional + ill appearing and + cachectic ENMT Mouth: + edentulous Thyromental Distance: > or= 3.5 Finger Breadths Mallampati Class: II Neck trachea midline, no thyromegaly + facial hair Respiratory Auscultation: + diminished lung sounds Cardiovascular Rate/Rhythm: + abnormal rate (irreg) and + abnormal rhythm (irreg) Heart Sounds: + murmur Vessels: no carotid bruit Neurologic moves all extremities; not confused Motor/Sensory: no sensory deficit Cranial Nerves: normal hearing Psychiatric Orientation: alert and oriented x 3 Testing Laboratory Results 01/29/21 09:29 01/26/21 09:03 PT 12.5 Seconds (9.0-12.0) H 01/25/21 16:17 INR 1.3 (0.9-1.1) H 01/25/21 16:17 APTT 48.7 Seconds (21.0-31.0) H* 01/08/21 08:42 Urine Color Dark Yellow 01/08/21 08:51 Urine Appearance Clear (Clear) 01/08/21 08:51 Urine pH 6.0 (4.5-7.5) 01/08/21 08:51 Ur Specific [place] 1.020 (1.000-1.030) 01/08/21 08:51 Urine Protein Trace (Negative) H 01/08/21 08:51 Urine Glucose (UA) Negative (Negative) 01/08/21 08:51 Urine Ketones Negative (Negative) 01/08/21 08:51 Urine Nitrite Negative (Negative) 01/08/21 08:51 Ur Leukocyte Esterase 1+ (Negative) H 01/08/21 08:51 Urine WBC (Auto) 5-10 /hpf (0-5) H 01/08/21 08:51 Urine RBC (Auto) 0-4 /hpf (0-4) 01/08/21 08:51 U Hyaline Cast (Auto) 1-5 /lpf (0-5) 01/08/21 08:51 U Epithel Cells (Auto) 10-20 /lpf (0-5) H 01/08/21 08:51 Urine Bacteria (Auto) Negative (Negative) 01/08/21 08:51 Blood Type O Positive 01/25/21 11:34 Antibody Screen NEGATIVE 01/25/21 11:34 01/14/21 15:51 Gram Stain - Final Ankle Wound Culture - Final Corynebacterium species 01/08/21 08:42 Aerobic Blood Culture - Final Blood No growth in Aerobic bottle after 5 days. Anaerobic Blood Culture - Final No growth in Anaerobic bottle after 5 days. 01/08/21 08:31 Aerobic Blood Culture - Final Blood No growth in Aerobic bottle after 5 days. Anaerobic Blood Culture - Final No growth in Anaerobic bottle after 5 days.
--- NOTE | 2021-01-30 07:39 | Operative Report ---
Post Operative Report Pre & Post Diagnosis Operation Date: 01/16/21 09:50 Pre-Op Diagnosis: Left leg hematoma Post-Op Diagnosis: Left leg hematoma Operation Date: 01/18/21 13:20 Pre-Op Diagnosis: Left leg hematoma Post-Op Diagnosis: Left leg hematoma Operation Date: 01/21/21 11:30 Pre-Op Diagnosis: LEFT LEG HEMATOMA Post-Op Diagnosis: LEFT LEG HEMATOMA Operation Date: 01/23/21 07:15 Pre-Op Diagnosis: Left thigh hematoma Post-Op Diagnosis: Left thigh hematoma Operation Date: 01/25/21 08:00 Pre-Op Diagnosis: Left Leg Hematoma Post-Op Diagnosis: Left Leg Hematoma Operation Date: 01/25/21 08:20 Pre-Op Diagnosis: Post-operative bleed, left thigh Post-Op Diagnosis: Post-operative bleed, left thigh Operation Date: 01/28/21 07:15 Pre-Op Diagnosis: Hematoma of Left Thigh Post-Op Diagnosis: Hematoma of Left Thigh Operation Date: 01/30/21 07:00 Pre-Op Diagnosis: Left leg hematoma status post irrigation and debridement. Postoperative bleeding. Post-Op Diagnosis: Same I identified the patient and participated in the time-out.: Yes Procedure Operation Date: 01/16/21 09:50 Actual Procedures p Left Thigh Incision and Drainage of Hematoma with Wound Vac Placement(Left) - Pérez Blackmon MD Operation Date: 01/18/21 13:20 Actual Procedures p Left Incision and Drainage Thigh with wound Vac Change(Left) - Baltazar Dill MD Operation Date: 01/21/21 11:30 Actual Procedures p Incision and Drainage Left Thigh with Wound Vac Change(Left) - Baltazar Dill MD Operation Date: 01/23/21 07:15 Actual Procedures p Incision and Drainage Left Thigh with Wound Vac Change(Left) - Pérez Blackmon MD Operation Date: 01/25/21 08:00 Actual Procedures p Incision and Drainage Thigh Left With Wound Vac Change(Left) - Pérez Blackmon MD Operation Date: 01/25/21 08:20 Actual Procedures p Incision and Drainage Extremity(Left) - Pérez Blackmon MD Operation Date: 01/28/21 07:15 Actual Procedures p Irrigation of Left Thigh and Application of Left Thigh Wound Vac (Left) - Pérez Blackmon MD Operation Date: 01/30/21 07:00 Actual Procedures p Left Thigh Wound Vac Change(Left) - Pérez Blackmon MD Surgeon Pérez Blackmon MD President + Publisher Joelle Hernandez no resident or fellow available. Estimated Blood Loss 1 Findings Consistent with Post-Op Diagnosis Specimens None Anesthesia Type MAC Disposition Accompanied Patient To Recovery: No Disposition: Recovery Room Indications Markell is taken to the OR for his routine wound VAC change. Description of Procedure Informed consent obtained. Patient identified. He identified the operative site as the left thigh. I marked with my initials. A preoperative surgical timeout was performed. Preop antibiotics were not indicated. He was positioned supine on the OR table with a bump under the left hip. DVT prophylaxis was not indicated. The wound VAC was removed. The wound is healthy. There was no bleeding. The posterior area, posterior and distal about 3 cm in size was reduced to an area about 3 mm in depth and 1-1/2 cm in diameter granulating well. He had a little bit of pain on removing the wound VAC from the anterior upper one third of the wound. There is healthy granulation tissue throughout with no purulence and no erythema and no skin breakdown. The wound was irrigated with 250 cc of sterile saline and then a new black wound VAC sponge was applied. A bridge was applied to the small posterior wound not directly on the skin. A label was applied and the tube was padded. The back of the foot without difficulty. Patient was awakened from anesthesia without difficulty taken to recovery in stable condition. There were no specimens or complications. There were no counts. Blood loss was none. At the conclusion the operation I spoke to the patient's informed her of my findings. He required 25 mcg of fentanyl which was given to him at the beginning of the pro cedure by anesthesia. I think we are safe at this point to proceed with wound VAC changes on the floor may be with a little bit of medication. I attest to the content of the Intraoperative Record and any orders documented therein. Any exceptions are noted below.
--- NOTE | 2021-01-30 07:43 | Operative Report ---
Post Operative Report Pre & Post Diagnosis Operation Date: 01/16/21 09:50 Pre-Op Diagnosis: Left leg hematoma Post-Op Diagnosis: Left leg hematoma Operation Date: 01/18/21 13:20 Pre-Op Diagnosis: Left leg hematoma Post-Op Diagnosis: Left leg hematoma Operation Date: 01/21/21 11:30 Pre-Op Diagnosis: LEFT LEG HEMATOMA Post-Op Diagnosis: LEFT LEG HEMATOMA Operation Date: 01/23/21 07:15 Pre-Op Diagnosis: Left thigh hematoma Post-Op Diagnosis: Left thigh hematoma Operation Date: 01/25/21 08:00 Pre-Op Diagnosis: Left Leg Hematoma Post-Op Diagnosis: Left Leg Hematoma Operation Date: 01/25/21 08:20 Pre-Op Diagnosis: Post-operative bleed, left thigh Post-Op Diagnosis: Post-operative bleed, left thigh Operation Date: 01/28/21 07:15 Pre-Op Diagnosis: Hematoma of Left Thigh Post-Op Diagnosis: Hematoma of Left Thigh Operation Date: 01/30/21 07:00 Pre-Op Diagnosis: Left leg hematoma Post-Op Diagnosis: Left leg hematoma I identified the patient and participated in the time-out.: Yes Procedure Operation Date: 01/16/21 09:50 Actual Procedures p Left Thigh Incision and Drainage of Hematoma with Wound Vac Placement(Left) - Pérez Blackmon MD Operation Date: 01/18/21 13:20 Actual Procedures p Left Incision and Drainage Thigh with wound Vac Change(Left) - Baltazar Dill MD Operation Date: 01/21/21 11:30 Actual Procedures p Incision and Drainage Left Thigh with Wound Vac Change(Left) - Baltazar Dill MD Operation Date: 01/23/21 07:15 Actual Procedures p Incision and Drainage Left Thigh with Wound Vac Change(Left) - Pérez Blackmon MD Operation Date: 01/25/21 08:00 Actual Procedures p Incision and Drainage Thigh Left With Wound Vac Change(Left) - Pérez Blackmon MD Operation Date: 01/25/21 08:20 Actual Procedures p Incision and Drainage Extremity(Left) - Pérez Blackmon MD Operation Date: 01/28/21 07:15 Actual Procedures p Irrigation of Left Thigh and Application of Left Thigh Wound Vac (Left) - Pérez Blackmon MD Operation Date: 01/30/21 07:00 Actual Procedures p Left Thigh Wound Vac Change(Left) - Pérez Blackmon MD Surgeon Pérez Blackmon M.D. Options Advisor Joelle Hernandez PA-C, no resident or fellow available. Estimated Blood Loss 1 Findings Consistent with Post-Op Diagnosis Specimens None Anesthesia Type MAC Complications none Description of Procedure Patient was taken to the operating room, placed under IV sedation, light. Time out performed, prepped and draped in routine sterile fashion. I was present during the entire case, please see Dr. Blackmon's operative report for further detail. patient was awakened and taken to the recovery room in stable condition. I attest to the content of the Intraoperative Record and any orders documented therein. Any exceptions are noted below.
--- NOTE | 2021-01-30 07:57 | Anesthesiology Progress Note ---
Date of Service January 30, 2021 Anesthesia Post Procedure Vital Signs Vital Signs: Temp Pulse Pulse Resp BP BP Pulse Ox 01/30/21 07:51 37 C 57 L 57 L 20 106/45 L 94 01/30/21 06:35 36.3 C L 67 20 104/48 L 91 01/30/21 06:20 36.3 C L 60 18 124/63 94 01/29/21 23:30 36.8 C 53 L 16 114/54 L 93 01/29/21 15:18 36.6 C 58 L 16 125/61 94 01/29/21 11:00 36.8 C 50 L 16 110/60 94 Pain Intensity Left Thigh: Pain Intensity: 3 Left Leg: Pain Intensity: 8 Transfer of Care Handoff Completed per policy Notes Mental Status: alert / awake / arousable Patient Amnestic to Procedure: Yes Nausea / Vomiting: adequately controlled Pain: adequately controlled Airway Patency, RR, SpO2: stable & adequate BP & HR: stable & adequate Hydration State: stable & adequate Anesthetic Complications: no major complications apparent
[2021-01-30] MEDS ORDERED: ATROPINE SULFATE 0.1 MG/ML 10ML SYR IV PRN (08:57)
[2021-01-30] MEDS ORDERED: ePHEDrine sulfate 50 MG/ML AMP IV PRN (08:57)
[2021-01-30] MEDS: SPIRONOLACTONE 100 MG TAB PO SCH (09:29)
[2021-01-30] MEDS: FUROSEMIDE 40 MG TAB PO SCH (09:29)
[2021-01-30] MEDS: LACTULOSE SYRUP 20 GM/30 ML UDC PO SCH (09:30)
--- NOTE | 2021-01-30 17:21 | Hospitalist Progress Note ---
Date of Service January 30, 2021 Assessment & Plan (1) Hematoma of left lower leg: Secondary to fall on rug at home. CT LEFT Femur on admission with hematoma measures approximately 30 x 11 x 7.5 cm MRI with enlargement of hematoma on 01/14 to 31.7 x 12.5 x 7.[address] of January 08, 2021. Orthopedics consulted, Dr. Blackmon POD S/P I&D LEFT THIGH HEMATOMA 01/[address] Blackmon. EBL 25cc. * Per operative report, 1000cc large loculated hematoma evacuated and wound vac placed POD s/p wound vac exchange on 01/[address] Dill. Tolerated well and size decreased with granulation tissue throughout without clot. * Lincoln placed and will get more accurate I&O however weights still inaccurate * --> Continuing lasix 40mg IV daily (WEIGHT NOW FINALLY 72kg/157lb down from 74.6kg on admission) and will continue for tomorrow and continue to monitor (dry weight closer to 148lb per CHF clinic) POD 01/21/21 wound vac exchange in OR POD repeat wound vac exchange in OR on 01/23, tolerated well, hb is 9 on 01/23 POD wound vac exchange the morning of 01/25, had significant bleeding after the procedure from superior wound edge gave 2 units FFP, one unit PRBC went back to the OR, bleeding stopped by Dr. Blackmon, wound packed, SATNAM wrap OR 01/28/21, anesthesia assisted wound vac changes OR 01/30/21 went well and will try to have bedside change on thursday Will need repeat therapy evals to see about SNF now that he has had surgery will be in the hospital until orthopedics feels he is done with trips to the OR (2) Anemia: * See above, secondary to #1 * Would place on PO iron once constipation resolved given iron low at 27, trans sat % 10L, transferrin 193L, TIBC wnl at 312 and ferritin 113 * Venofer x 1 on 01/15, 01/17, 01/19 * 2 units PRBC prior to surgery and 1 unit PRBC given with surgery on 01/16 * one unit PRBC given on 01/25 due to ongoing bleeding, BP was stable, Hb is stable (3) Acute on chronic diastolic (congestive) heart failure: * due to RIGHT SIDED HEART FAILURE/CIRRHOSIS * -- secondary to medication non-compliance/cognitive decline. * Was on Lasix 40mg QOD during admission but was on daily dose with 100mg spironolactone * BNP 3798 on 01/14 * ECHO with evidence for volume overload with elevated RVSP * gave Lasix 20mg IV after FFP and PRBC transfusions, lungs are clear * resumed Lasix 40mg PO daily on 01/27 (4) Hepatic cirrhosis: * Unclear whether the patient is taking spironolactone or furosemide at the current time. * no further work up * has coagulopathy due to cirrhosis, INR was 1.3 (5) Chronic venous insufficiency: * Stasis changes to b/l LE however with edema/fall and hx afib * Dopplers NEGATIVE for DVT * Vascular also consulted given plans for outpatient Venaseal--> Plans for outpatient intervention * Was to complete course of doxycycline --> did have dose left. Erythema/cellulitis to LE and put back on Doxy with improvement and would continue course at d/c * Doxycycline TO PO BID was to treat dermatitis and also history of osteomyelitis of ankle (6) Atrial fibrillation: * Not on anticoagulation - unclear reason for this although contraindicated with current hematoma --> had issues in past with intraocular bleeding as well as hematuria last admission while on Lovenox * Venous Dopplers 01/14 NEGATIVE for DVT * Rate controlled on no medication (7) HTN (hypertension), benign: * Chronic. BP controlled 110/51 and continues to tolerate diuresis * On lasix/spironolactone as above * Previously on carvedilol, SATNAM in past -- unclear why this was discontinued (8) Obstructive sleep apnea syndrome: * Patient reports not on CPAP at home. * With R sided HF would benefit but patient continues to decline (9) Osteomyelitis of left ankle: * Chronic * No surgical intervention planned. * [facility] - just completed course of Doxycycline for 14 days per wound care (did not complete full course) for MSSA of wound in office * Repeat cx with pin-point growth, re-incubating --> corynebacterium * CRP elevated 6.7, ESR 70 (but could be from age?) --> IMPROVING * no WBC/afebrile * Placed back on doxy on 01/14, switched to PO 01/17 and would complete 7-10 day course. Continued for erythema which is improved but now some erythema around wound vac as well * Continued wound care while inpatient Palliative consultation undertaken given LACE score >=11 for goals of care Patient changed to DNR/DNI Dispo: continued inpatient stay, plan for additional wound vac changes per ortho is enthusiastic to have pt come home and is realistic about his care at home Admission and Anticipated Discharge Date Admission Date: January 08, 2021 Subjective This 85-year-old male. He has no complaints of pain, fever, chills, sweats, lethargy, chest pain shortness of breath, nausea vomiting or diarrhea. States he has some minimal tenderness over the left thigh at the site of the wound VAC. States that it seems to be working well. Review of Systems Review of Systems: Mild distress and moderate fatigue no headache, blurry or double vision no speech or swallowing issues no chest pain, pressure or palpitations no shortness of breath, cough or wheezes no abdominal pain, nausea or vomiting, diarrhea or constipation no dysuria, hematuria or frequency some left thigh lateral pain no back pain, CVA tenderness or radicular pain chronic le skin changes global weakness with critical illness myopathy no complaints of anxiety or depression. Physical Exam Physical Exam: The patient appeared well nourished and normally developed. Vital signs as documented. Head exam is normocephalic atraumatic no scleral icterus Neck is without JVD, thyromegaly, or carotid bruits. Lungs are clear to auscultation, no focal loss of breath sounds Cardiac exam, Rhythm is regular.. No murmurs, rubs or gallops. Abdominal exam reveals normal bowel sounds, soft non tender, no masses Extremities are nonedematous and both pedal pulses are present Neurologic exam is alert and oriented, no focal loss of strength or sensation Skin is with left leg lateral wound VAC in place he is chronic venous stasis changes to his bilateral lower extremities with marked skin increased pigmentation and additional small open area to his left medial malleolus Psychologically is without concerns for anxiety or depression Results & Data Results & Data ([facility]) Vital Signs (Past 12 Hours) Vital Signs Temp Pulse Pulse Resp BP BP Pulse Ox 01/30/21 15:08 98.1 F 52 L 16 108/53 L 2 L 01/30/21 10:15 97.3 F L 43 L 16 140/56 L 99 01/30/21 09:15 97.7 F 63 18 129/67 99 01/30/21 08:48 97.7 F 62 18 100/48 L 100 01/30/21 08:14 97.2 F L 63 16 107/56 L 98 01/30/21 08:05 99.0 F 57 L 21 109/52 L 99 01/30/21 07:55 53 L 17 103/52 L 99 01/30/21 07:51 98.6 F 57 L 57 L 20 106/45 L 94 01/30/21 06:35 97.3 F L 67 20 104/48 L 91 01/30/21 06:20 97.3 F L 60 18 124/63 94 PG Care Time/CCT Total # of Minutes Spent Total Time Spent with Patient: Total time spent is greater than 50% in coordina tion of care (as documented) at patient's floor/unit and/or counseling patient: Coding Level of Care Code 78303 Subseq Hosp Care Lvl 2 Diagnoses Hematoma of left lower leg S80.12XA Anemia D64.9 Acute on chronic diastolic (congestive) heart failure I50.33 Hepatic cirrhosis K74.60 Chronic venous insufficiency I87.2 Atrial fibrillation I48.20 Atrial fibrillation type: unspecified chronic HTN (hypertension), benign I10 Obstructive sleep apnea syndrome G47.33 Osteomyelitis of left ankle M86.9 (1) Atrial fibrillation Atrial fibrillation type: unspecified chronic Qualified Code(s): I48.20 - Chronic atrial fibrillation, unspecified
[2021-01-31] MEDS: LACTULOSE SYRUP 20 GM/30 ML UDC PO SCH (10:02)
[2021-01-31] MEDS: FUROSEMIDE 40 MG TAB PO SCH (10:02)
--- NOTE | 2021-01-31 10:32 | Orthopedic Progress Note ---
Date of Service January 31, 2021 Assessment & Plan (1) Hematoma of left thigh: Patient has had multiple wound VAC changes in the operating room. The plan is to try tomorrow to do a wound VAC change at the bedside by the wound care nurse. Wound care nurse is aware. We will make him n.p.o. just in case this is not tolerated and we do end up having to take him to the OR tomorrow to have the wound VAC changed. If it is well-tolerated then he may be discharged home with home health for home VAC changes. This process has been started by case management. He is anxious to get home. He feels that this will be tolerated fine. He may need some pain medication prior to the wound VAC being removed. He will follow up with us as an outpatient next week for another wound check. Discharge instructions were reviewed with the patient. He may do activities as tolerated and weight-bear as tolerated on that left lower extremity. Recommended continue use of his walker at all times. He understands and agrees with the plan. Admission and Anticipated Discharge Date Admission Date: January 08, 2021 Subjective Patient is doing well with no complaints of pain in left thigh today. Wound VAC is functioning well. He has been out of bed with therapy walking down the [place] with a walker. Denies any swelling. States that he is anxious to go home. Denies any fevers, chills, chest pains or shortness of breath. Has been tolerating a regular diet. Physical Exam Physical Exam: Wound VAC on left thigh is functioning. Serosanguineous drainage today. Less drainage than previous days. Leg is not swollen. He is able to actively straight leg raise and flex left knee. Strength is 5/5. No pain with movement of his left hip. Ambulating well with the assistance of a walker. Results & Data ([facility]) Vital Signs (Past 12 Hours) Vital Signs Temp Pulse Resp BP Pulse Ox 01/31/21 07:52 36.7 C 68 16 107/51 L 95 (1) Hematoma of left thigh Encounter type: initial encounter Qualified Code(s): S70.12XA - Contusion of left thigh, initial encounter
[2021-01-31] MEDS: SPIRONOLACTONE 100 MG TAB PO SCH (10:57)
--- NOTE | 2021-01-31 11:43 | Hospitalist Progress Note ---
Date of Service January 31, 2021 Assessment & Plan (1) Hematoma of left lower leg: Secondary to fall on rug at home. CT LEFT Femur on admission with hematoma measures approximately 30 x 11 x 7.5 cm MRI with enlargement of hematoma on 01/14 to 31.7 x 12.5 x 7.[address] of January 08, 2021. Orthopedics consulted, Dr. Blackmon POD S/P I&D LEFT THIGH HEMATOMA 01/[address] Blackmon. EBL 25cc. * Per operative report, 1000cc large loculated hematoma evacuated and wound vac placed POD s/p wound vac exchange on 01/[address] Dill. Tolerated well and size decreased with granulation tissue throughout without clot. * Lincoln placed and will get more accurate I&O however weights still inaccurate * --> Continuing lasix 40mg IV daily (WEIGHT NOW FINALLY 72kg/157lb down from 74.6kg on admission) and will continue for tomorrow and continue to monitor (dry weight closer to 148lb per CHF clinic) POD 01/21/21 wound vac exchange in OR POD repeat wound vac exchange in OR on 01/23, tolerated well, hb is 9 on 01/23 POD wound vac exchange the morning of 01/25, had significant bleeding after the procedure from superior wound edge gave 2 units FFP, one unit PRBC went back to the OR, bleeding stopped by Dr. Blackmon, wound packed, SATNAM wrap OR 01/28/21, anesthesia assisted wound vac changes OR 01/30/21 went well and will try to have bedside change on thursday Patient requires frequent changes in body position and not feasible in a ordinary bed to alleviate pain, a wound vac is required to help a large lateral left leg wound heal (2) Anemia: * See above, secondary to #1 * Would place on PO iron once constipation resolved given iron low at 27, trans sat % 10L, transferrin 193L, TIBC wnl at 312 and ferritin 113 * Venofer x 1 on 01/15, 01/17, 01/19 * 2 units PRBC prior to surgery and 1 unit PRBC given with surgery on 01/16 * one unit PRBC given on 01/25 due to ongoing bleeding, BP was stable, Hb is stable (3) Acute on chronic diastolic (congestive) heart failure: * due to RIGHT SIDED HEART FAILURE/CIRRHOSIS * -- secondary to medication non-compliance/cognitive decline. * Was on Lasix 40mg QOD during admission but was on daily dose with 100mg spironolactone * BNP 3798 on 01/14 * ECHO with evidence for volume overload with elevated RVSP * gave Lasix 20mg IV after FFP and PRBC transfusions, lungs are clear * resumed Lasix 40mg PO daily on 01/27 (4) Hepatic cirrhosis: * Unclear whether the patient is taking spironolactone or furosemide at the current time. * no further work up * has coagulopathy due to cirrhosis, INR was 1.3 (5) Chronic venous insufficiency: * Stasis changes to b/l LE however with edema/fall and hx afib * Dopplers NEGATIVE for DVT * Vascular also consulted given plans for outpatient Venaseal--> Plans for outpatient intervention * Was to complete course of doxycycline --> did have dose left. Erythema/cellulitis to LE and put back on Doxy with improvement and would continue course at d/c * Doxycycline TO PO BID was to treat dermatitis and also history of osteomyelitis of ankle (6) Atrial fibrillation: * Not on anticoagulation - unclear reason for this although contraindicated with current hematoma --> had issues in past with intraocular bleeding as well as hematuria last admission while on Lovenox * Venous Dopplers 01/14 NEGATIVE for DVT * Rate controlled on no medication (7) HTN (hypertension), benign: * Chronic. BP controlled 110/51 and continues to tolerate diuresis * On lasix/spironolactone as above * Previously on carvedilol, SATNAM in past -- unclear why this was discontinued (8) Obstructive sleep apnea syndrome: * Patient reports not on CPAP at home. * With R sided HF would benefit but patient continues to decline (9) Osteomyelitis of left ankle: * Chronic * No surgical intervention planned. * No antibiotics per isinger infectious disease - just completed course of Doxycycline for 14 days per wound care (did not complete full course) for MSSA of wound in office * Repeat cx with pin-point growth, re-incubating --> corynebacterium * CRP elevated 6.7, ESR 70 (but could be from age?) --> IMPROVING * no WBC/afebrile * Placed back on doxy on 01/14, switched to PO 01/17 and would complete 7-10 day course. Continued for erythema which is improved but now some erythema around wound vac as well * Continued wound care while inpatient Palliative consultation undertaken given LACE score >=11 for goals of care Patient changed to DNR/DNI Dispo: continued inpatient stay, plan for additional wound vac changes per ortho is enthusiastic to have pt come home and is realistic about his care at home Admission and Anticipated Discharge Date Admission Date: January 08, 2021 Subjective Patient is doing well with no complaints of pain in left thigh today. Wound VAC is functioning well. He has been out of bed with therapy walking down the [place] with a walker. Denies any swelling. States that he is anxious to go home. Denies any fevers, chills, chest pains or shortness of breath. Has been tolerating a regular diet. Review of Systems Review of Systems: Mild distress and moderate fatigue no headache, blurry or double vision no speech or swallowing issues no chest pain, pressure or palpitations no shortness of breath, cough or wheezes no abdominal pain, nausea or vomiting, diarrhea or constipation no dysuria, hematuria or frequency some left thigh lateral pain no back pain, CVA tenderness or radicular pain chronic le skin changes global weakness with critical illness myopathy no complaints of anxiety or depression. Physical Exam Physical Exam: The patient appeared well nourished and normally developed. Vital signs as documented. Head exam is normocephalic atraumatic no scleral icterus Neck is without JVD, thyromegaly, or carotid bruits. Lungs are clear to auscultation, no focal loss of breath sounds Cardiac exam, Rhythm is regular.. No murmurs, rubs or gallops. Abdominal exam reveals normal bowel sounds, soft non tender, no masses Extremities are nonedematous and both pedal pulses are present Neurologic exam is alert and oriented, no focal loss of strength or sensation Skin is with left leg lateral wound VAC in place he is chronic venous stasis changes to his bilateral lower extremities with marked skin increased pigmentation and additional small open area to his left medial malleolus Psychologically is without concerns for anxiety or depression Results & Data Results & Data ([facility]) Vital Signs (Past 12 Hours) Vital Signs Temp Pulse Resp BP Pulse Ox 01/31/21 07:52 98.1 F 68 16 107/51 L 95 PG Care Time/CCT Total # of Minutes Spent Total Time Spent with Patient: Total time spent is greater than 50% in coordinat ion of care (as documented) at patient's floor/unit and/or counseling patient: Coding Level of Care Code 59540 Subseq Hosp Care Lvl 2 Diagnoses Hematoma of left lower leg S80.12XA Anemia D64.9 Acute on chronic diastolic (congestive) heart failure I50.33 Hepatic cirrhosis K74.60 Chronic venous insufficiency I87.2 Atrial fibrillation I48.20 Atrial fibrillation type: unspecified chronic HTN (hypertension), benign I10 Obstructive sleep apnea syndrome G47.33 Osteomyelitis of left ankle M86.9 (1) Atrial fibrillation Atrial fibrillation type: unspecified chronic Qualified Code(s): I48.20 - Chronic atrial fibrillation, unspecified
--- NOTE | 2021-01-31 14:28 | Palliative Care Progress Note ---
Date of Service January 31, 2021 Assessment & Plan (1) Palliative care encounter: Markell has continued to go to the OR every other day for wound vac exchange and debridement, with the last time being yesterday. Tomorrow, they will shift to the wound nurse changing it out at the bedside. Based on that progress, he may be able to return home with home health and wound care this weekend. Going home has been a strong goal for both Markell and his and their daughter, Madalyn. He is in good spirits and has been working with PT. I talked to Markell at the bedside and his Summer on the phone at [phone] and both are in agreement to have a televisit with Palliative Care after his discharge within 14 days. He has a living will and would not want extraordinary measures to prolong his life. Palliative Medicine will follow upon his discharge. I discussed the above with Dr. Reveles and case management. (2) Hematoma of left thigh: (3) Fall: (4) Hepatic cirrhosis: (5) Chronic venous insufficiency: (6) Osteomyelitis of left ankle: (7) Right-sided heart failure: Admission and Anticipated Discharge Date Admission Date: January 08, 2021 Subjective Markell is doing well and says he's feeling motivated to return home, as early as this weekend. Tomorrow, wound care will change his wound vac and dressing. From there, baring any complicating factors, he will return home this weekend. He is tolerating a regular diet. See A/P for further details. Review of Systems Review of Systems: [place] System Assessment Scale: Pain: 1/3 Tiredness: 0/3 Lack of Appetite: 0/3 Shortness of breath: 0/3 Anxiety: 0/3 Palliative Performance Scale: 40% Physical Exam Constitutional: well developed, + frail appearing, cooperative and comfortable ENMT: Nose: + dry nasal mucous membranes Respiratory: normal respiratory effort Auscultation: + diminished lung sounds Cardiovascular: Rate/Rhythm: regular rhythm and + bradycardic Extremities: normal capillary refill Gastrointestinal (Abdomen): normal bowel sounds, soft, nontender, no hepatosplenomegaly Skin: + incision (wound vac left anterior thigh) Psychiatric: A+Ox3, euthymic affect Results & Data ([facility]) Vital Signs (Past 12 Hours) Vital Signs Temp Pulse Resp BP BP Pulse Ox 01/31/21 11:46 37.1 C 55 L 16 111/52 L 95 01/31/21 07:52 36.7 C 68 16 107/51 L 95 PG Care Time/CCT Total # of Minutes Spent Total Time Spent with Patient: Total time spent is greater than 50% in coordination of care (as documented) at patient's floor/unit and/or counseling patient: 35 minutes with > 50% of that time spent assessing the patient, discussing goals of care with patient and family and coordinating with IDT Coding Level of Care Code 26091 Subseq Hosp Care Lvl 3 Diagnoses Palliative care encounter Z51.5 Hematoma of left thigh S70.12XA Encounter type: initial encounter Fall W19.XXXA Encounter type: initial encounter Hepatic cirrhosis K74.60 Chronic venous insufficiency I87.2 Osteomyelitis of left ankle M86.9 Right-sided heart failure I50.810 Time Spent (min) 35 (1) Hematoma of left thigh Encounter type: initial encounter Qualified Code(s): S70.12XA - Contusion of left thigh, initial encounter (2) Fall Encounter type: initial encounter Qualified Code(s): W19.XXXA - Unspecified fall, initial encounter
[2021-02-01] MEDS: SPIRONOLACTONE 100 MG TAB PO SCH (07:50)
[2021-02-01] MEDS: LACTULOSE SYRUP 20 GM/30 ML UDC PO SCH (07:51)
[2021-02-01] MEDS: FUROSEMIDE 40 MG TAB PO SCH (07:51)
[2021-02-01] MEDS: traMADol HCL 50 MG TABLET PO PRN (08:39)
--- NOTE | 2021-02-01 10:53 | Orthopedic Progress Note ---
Date of Service February 01, 2021 Assessment & Plan (1) Hematoma of left thigh: Patient had bedside wound VAC change performed by the wound care nurse this morning. He did very well and was premedicated before the the procedure was performed. From an orthopedic standpoint the patient is okay to be discharged, however the patient is under medicine service so discharge is pending their evaluation. Patient will need home health coming to his home to do wound VAC changes Wednesdays and Fridays. He may need some pain medication prior to the wound VAC being removed. He will follow up with us as an outpatient next week for another wound check. He may do activities as tolerated and weight-bear as tolerated on that left lower extremity. Recommended continue use of his walker at all times. He understands and agrees with the plan. Admission and Anticipated Discharge Date Admission Date: January 08, 2021 Subjective This 85-year-old male seen this morning. Wound care nurse Basia was in the patient's room getting ready to do a bedside wound VAC change. Patient was awake and alert and no complaints of any chest pain, shortness of breath, fever, chills, sweats, lethargy, nausea vomiting or diarrhea. He is hoping that the wound care change goes well so that he can be discharged home. Review of Systems Review of Systems: All systems reviewed & are unremarkable except as noted in Subjective Physical Exam Physical Exam: Left thigh: Wound VAC application site is clean dry and intact with no drainage. There is 150 mL of clear blood-tinged fluid in the wound VAC canister. Patient does have some edema around the VAC site with tenderness to palpation. He is able to actively dorsi and plantarflex his foot without difficulty. He can perform a straight leg raise test and flex his knee to 90 degrees. He is neurovascularly intact in the left lower extremity. Results & Data ([facility]) Vital Signs (Past 12 Hours) Vital Signs Temp Pulse Resp BP BP Pulse Ox 02/01/21 08:03 36.8 C 51 L 16 106/54 L 96 02/01/21 07:15 36.7 C 47 L 14 108/56 L 94 01/31/21 22:52 37.1 C 70 18 124/76 95 (1) Hematoma of left thigh Encounter type: initial encounter Qualified Code(s): S70.12XA - Contusion of left thigh, initial encounter
--- NOTE | 2021-02-01 17:40 | Discharge Summary ---
Date of Service February 01, 2021 Admission HPI Per Admitting Provider Markell Vernon is an 85 year old male who presents to the ER after increasing ambulatory dysfunction after a fall 5 days ago. The patient reports tripping over a rug. Since this time he has had increasing pain and swelling in his left leg. His had unfortunately the emergency room prior to his admission therefore majority of history was taken from ER notes. Ran out of medications Per outside pharmacy record he was started on doxycycline since December 25. The patient is unsure about his medications. "I take one pill in the morning". Unable to contact his at the current time on mobile number on EHR (tried multiple times). He was hospitalized last month due to acute on chronic diastolic and systolic heart failure. He was treated with furosemide and spironolactone at that time and prescribed on discharge but is yet to be refilled. Principal Diagnosis left thigh hematoma s/p drainage, wound vac application Discharge Exam The patient appeared chronically ill and under weight Vital signs as documented. Lungs are clear to auscultation and appear unlabored Cardiac exam, Rhythm is regular.. No murmurs, rubs or gallops. Abdominal exam reveals normal bowel sounds, soft non tender, no masses left thigh with large linear wound with wound vac applied, has b/l chronic venous stasis ulcerations but left medial malelar wound has healed Neurologic exam is alert and oriented, no focal loss of strength or sensation Skin is with chronic venous stasis changes Psychologically is without concerns for anxiety or depression. Discharge Data Allergies Allergy/AdvReac Type Severity Reaction Status Date / Time merbromin Allergy Intermediate ALLERGIC Verified 01/08/21 09:06 TO MERCUROCHROME, RASH mercury (elemental) AdvReac Intermediate Rash Verified 01/08/21 09:06 sulfamethoxazole AdvReac Intermediate GI UPSET, Verified 01/08/21 09:06 FEVER, HEADACHE trimethoprim AdvReac Intermediate GI UPSET, Verified 01/08/21 09:06 FEVER, HEADACHE ciprofloxacin AdvReac Mild GI SYMPTOMS Verified 01/08/21 09:06 Consultations 01/08/21 10:23 ED Decision to Admit Stat 01/14/21 15:14 Consult Vascular Surgery Routine 01/15/21 08:20 Consult Orthopedic Surgery Routine 01/15/21 08:52 Consult Palliative Care Routine Procedures Performed Operation Date: 01/16/21 09:50 Actual Procedures p Left Thigh Incision and Drainage of Hematoma with Wound Vac Placement(Left) - Pérez Blackmon MD Operation Date: 01/18/21 13:20 Actual Procedures p Left Incision and Drainage Thigh with wound Vac Change(Left) - Baltazar Dill MD Operation Date: 01/21/21 11:30 Actual Procedures p Incision and Drainage Left Thigh with Wound Vac Change(Left) - Baltazar Dill MD Operation Date: 01/23/21 07:15 Actual Procedures p Incision and Drainage Left Thigh with Wound Vac Change(Left) - Pérez Blackmon MD Operation Date: 01/25/21 08:00 Actual Procedures p Incision and Drainage Thigh Left With Wound Vac Change(Left) - Pérez Blackmon MD Operation Date: 01/25/21 08:20 Actual Procedures p Incision and Drainage Extremity(Left) - Pérez Blackmon MD Operation Date: 01/28/21 07:15 Actual Procedures p Irrigation of Left Thigh and Application of Left Thigh Wound Vac (Left) - Pérez Blackmon MD Operation Date: 01/30/21 07:00 Actual Procedures p Left Thigh Wound Vac Change(Left) - Pérez Blackmon MD Ordered Studies 01/08/21 08:18 CT facial bones wo con Stat CT head/brain wo con Stat 01/08/21 08:22 CT cervical spine wo con Stat 01/08/21 08:35 CT femur LT w con Stat 01/14/21 15:00 US venous doppler LE BI Urgent 01/14/21 15:09 MR ankle LT wo con Urgent 01/14/21 17:05 MR femur LT wo con Routine 01/19/21 11:30 US gallbladder Routine Hospital Course (1) Hematoma of left lower leg: Secondary to fall on rug at home. CT LEFT Femur on admission with hematoma measures approximately 30 x 11 x 7.5 cm MRI with enlargement of hematoma on 01/14 to 31.7 x 12.5 x 7.[address] of January 08, 2021. Orthopedics consulted, Dr. Blackmon POD S/P I&D LEFT THIGH HEMATOMA 01/[address] Blackmon. EBL 25cc. * Per operative report, 1000cc large loculated hematoma evacuated and wound vac placed POD s/p wound vac exchange on 01/[address] Dill. Tolerated well and size decreased with granulation tissue throughout without clot. * Lincoln placed and will get more accurate I&O however weights still inaccurate * --> Continuing lasix 40mg IV daily (WEIGHT NOW FINALLY 72kg/157lb down from 74.6kg on admission) and will continue for tomorrow and continue to monitor (dry weight closer to 148lb per CHF clinic) POD 01/21/21 wound vac exchange in OR POD repeat wound vac exchange in OR on 01/23, tolerated well, hb is 9 on 01/23 POD wound vac exchange the morning of 01/25, had significant bleeding after the procedure from superior wound edge gave 2 units FFP, one unit PRBC went back to the OR, bleeding stopped by Dr. Blackmon, wound packed, SATNAM wrap OR 01/28/21, anesthesia assisted wound vac changes OR 01/30/21 went well Bedside change went well 02/01 and pt will be discharged Patient requires frequent changes in body position and not feasible in a ordinary bed to alleviate pain, a wound vac is required to help a large lateral left leg wound heal (2) Anemia: * See above, secondary to #1 * Would place on PO iron once constipation resolved given iron low at 27, trans sat % 10L, transferrin 193L, TIBC wnl at 312 and ferritin 113 * Venofer x 1 on 01/15, 01/17, 01/19 * 2 units PRBC prior to surgery and 1 unit PRBC given with surgery on 01/16 * one unit PRBC given on 01/25 due to ongoing bleeding, BP was stable, Hb is stable (3) Acute on chronic diastolic (congestive) heart failure: * due to RIGHT SIDED HEART FAILURE/CIRRHOSIS * -- secondary to medication non-compliance/cognitive decline. * Was on Lasix 40mg QOD during admission but was on daily dose with 100mg spironolactone * BNP 3798 on 01/14 * ECHO with evidence for volume overload with elevated RVSP * gave Lasix 20mg IV after FFP and PRBC transfusions, lungs are clear * resumed Lasix 40mg PO daily on 01/27 (4) Hepatic cirrhosis: * Unclear whether the patient is taking spironolactone or furosemide at the current time. * no further work up * has coagulopathy due to cirrhosis, INR was 1.3 (5) Chronic venous insufficiency: * Stasis changes to b/l LE however with edema/fall and hx afib * Dopplers NEGATIVE for DVT * Vascular also consulted given plans for outpatient Venaseal--> Plans for outpatient intervention * Was to complete course of doxycycline --> did have dose left. Erythema/cellulitis to LE and put back on Doxy with improvement and would continue course at d/c * Doxycycline was to treat dermatitis and also history of osteomyelitis of ankle (6) Atrial fibrillation: * Not on anticoagulation - unclear reason for this although contraindicated with current hematoma --> had issues in past with intraocular bleeding as well as hematuria last admission while on Lovenox * Venous Dopplers 01/14 NEGATIVE for DVT * Rate controlled on no medication (7) HTN (hypertension), benign: * Chronic. BP controlled 110/51 and continues to tolerate diuresis * On lasix/spironolactone as above * Previously on carvedilol, SATNAM in past -- unclear why this was discontinued, no t ordered on d/c (8) Obstructive sleep apnea syndrome: * Patient reports not on CPAP at home. * With R sided HF would benefit but patient continues to decline (9) Osteomyelitis of left ankle: * Chronic * No surgical intervention planned. * [facility] - just completed course of Do xycycline for 14 days per wound care (did not complete full course) for MSSA of wound in office * Repeat cx with pin-point growth, re-incubating --> corynebacterium * CRP elevated 6.7, ESR 70 (but could be from age?) --> IMPROVING * no WBC/afebrile * Placed back on doxy on 01/14, switched to PO 01/17 and would completed course. Continued for erythema which is improved but now some erythema around wound vac as well * Continued wound care while inpatient Palliative consultation undertaken given LACE score >=11 for goals of care Patient changed to DNR/DNI Dispo: continued inpatient stay, plan for additional wound vac changes per ortho is enthusiastic to have pt come home and is realistic about his care at home Home Health Attestation I certify that this patient is under my care and that I, or a physicians pediatric medical assistant working with me, had a face to-face encounter that meets the home health [id number] encounter requirements with this patient. The encounter with the patient was in whole, or in part, for the following medical condition, which is the primary reason for home health care (list medical condition): left leg hematoma I certify that, based on my findings, the following services are medically necessary home health services: My clinical findings support the need for the above services because: Caregiver Instruct Med Mgmt, Safety, Disease Process, Signs to Report Home Safety Assessment OT Assess ADL Status and Restore Function w ADLs PT Gait and Balance Training, Strengthening and Safety Skilled Nsg Assessment Skilled Nsg Assessment Surgical Incision / Wound Vital Signs Further, I certify that my clinical findings support that this patient is homebound (i.e. absences from home require considerable and taxing effort and are for medical reasons or scientology services or infrequently or of short duration when for other reasons) because: Maximum Assistance with Ambulation and ADL's Supportive Aid - Wheelchair Transportation Assistance/Unable to Leave Home Unassisted Certification for Home Health Services: Based on the above findings, I certify that this patient is confined to the home and needs intermittent mcc care, physical therapy and/or speech therapy or continues to need occupational therapy. The patient is under my care, and I have initiated the establishment of the plan of care. This patient will be followed by a physician who will periodically review the plan of care. Total Time Total Time Spent Total Time Spent (In Minutes): It required greater than 30 minutes to prepare this patient for discharge Discharge Plan Discharge Items Patient Disposition: Home - Home Health Services Reason For Visit: LEFT LEG HEMATOMA Discharge Diagnosis: left leg hematoma s/p drainage and wound vaccuum placed Condition on Discharge: Fair Activity: Per Instructions section Activity Comment: home PT/OT Non-emergency contact: Primary Care Provider and Specialist Call non-emergency contact if: you have any medication questions, your symptoms worsen and you have a fever Follow-up/Referrals: Jose J Antoine MD [Primary Care Provider] - 02/05/21 2:15 pm (You will be seeing Jing Angeles PA-C on 02/05/2021) Joelle Hernandez PA-C [Physician Production Corrugator] - 02/06/21 10:30 am Diet: Regular Diet Comment: encourage good nutrition, consider a multivitiple vitamin daily Addtl Attending Provider Instructions: Weight bear as tolerated left lower extremity Wound vac changes every Thursday, Thursday, Thursday by Home health nurse Use walker at all times with walking Allowed for full range of motion left leg. Encouraged home exercises which include quad sets, leg lifts and knee bends. You do not need antibiotics. Follow up with Dr. Blackmon on Tuesday 02/06 at 10:30 a.m. for wound vac removal, then home health will come to your home after that appointment to reapply wound vac. Pending Studies at Discharge: No Stand-Alone Forms: My [facility], Smoking Cessation Medications and DC Order Prescriptions: New furosemide 40 mg Tablet 40 mg PO QAM Qty: 30 RF: 3 spironolactone 100 mg Tablet 100 mg PO QAM Qty: 30 RF: 3 lactulose 20 gram/30 mL Solution 20 g PO QAM Qty: 1200 RF: 3 tramadol [Ultram] 50 mg tablet 50 mg PO Q8H PRN (Reason: pain) Qty: 30 RF: 0 No Action No Known Home Medications RF: 0 Discharge Orders: Discharge Order (Routine); Ordered 02/01/21 Ordered By: John Sanford/Other Patient Handouts: Negative Pressure Wound Therapy Admission Data Admit Date/Time: 01/08/21 11:03 Attending Provider: John Reveles Admit Provider: Juventino Gambino Primary Care Provider: Jose J Antoine V. Other Providers: [facility] ; Manuel Black [facility] ; [facility] ; Juventino Gambino ; Guicho Nunez ; Pérez Blackmon ; Jany Davila ; [facility] Healthcare Other Interventions: Discharge Summary Assessment (RN) Last Done: 02/01/21 11:08 Coding Level of Care Code D/C Day Management >30 mins Diagnoses Hematoma of left lower leg S80.12XA Anemia D64.9 Acute on chronic diastolic (congestive) heart failure I50.33 Hepatic cirrhosis K74.60 Chronic venous insufficiency I87.2 Atrial fibrillation I48.20 Atrial fibrillation type: unspecified chronic HTN (hypertension), benign I10 Obstructive sleep apnea syndrome G47.33 Osteomyelitis of left ankle M86.9
== END 2021-02-01 17:30 | disposition home health service (06) | DRG 570 ==
LOC: ED 07:59 → SUATTDRO 11:03 → 2W 11:03 → 3N 01-09 11:24